=== PATIENT | male | born 1950 | race Caucasian/White ===

== ENCOUNTER 2022-02-11 10:25 | Day surgery (SDC) | payer MEDICARE ==
[2022-01-24 14:43] VITALS: BMI 29.9
[~2022-02-11 10:25] MED LIST: ALPRAZolam 0.25 MG TAB PO PRN; ALPRAZolam 0.5 MG TAB PO PRN; ASPIRIN 325 MG TAB PO ONE; ATORVASTATIN 80 MG TAB PO ONE; HEPARIN SODIUM,PORCINE 10,000 UNIT in SODIUM CHLORIDE 0.9% 1,000 ML IRRIGATION PRN; HEPARIN SODIUM,PORCINE 2,500 UNIT in SODIUM CHLORIDE 0.9% 250 ML IRRIGATION PRN; NITROGLYCERIN SL TABS 0.4 MG TAB SUBLINGUAL PRN
[2022-02-11] MEDS ORDERED: SODIUM CHLORIDE 0.9% 1,000 ML IV ONE ×2 (10:41→11:42)
[2022-02-11 10:52] LABS: Glucose,Whole Blood 129 mg/dL (70-110)
[2022-02-11] MEDS ORDERED: fentaNYL (PF) 50 MCG/ML 2 ML AMP ONE (11:57)
[2022-02-11] MEDS ORDERED: LIDOCAINE 1% INJ 10MG/ML (30 ML VIAL-PF) SQ ONE (11:58)
[2022-02-11] MEDS ORDERED: fentaNYL (PF) 50 MCG/ML 2 ML AMP IV ONE (12:00)
[2022-02-11] MEDS ORDERED: MIDAZOLAM 2 MG/2 ML VIAL IV ONE (12:00)
[2022-02-11] MEDS ORDERED: HEPARIN SODIUM 1,000 UN/ML (10ML VL) ONE ×2 (12:26→12:53)
[2022-02-11] MEDS: HEPARIN SODIUM 1,000 UN/ML (10ML VL) IV ONE ×4 (12:30→13:03)
[2022-02-11] MEDS: IOPAMIDOL-370 125ML BTL INJ ONE ×2 (12:32→12:39)
[2022-02-11] MEDS ORDERED: NITROGLYCERIN 1000MCG/10ML SYRINGE INTRACORON ONE (12:40)
--- NOTE | 2022-02-11 12:51 | CC ---
CARDIAC CATHETERIZATION REPORT REFERRING PHYSICIAN: Kyle Hall. INDICATIONS: Recurrent episodes of chest pain with abnormal stress test. PROCEDURE NOTE: After obtaining informed consent, left heart catheterization, coronary angiogram, selective injection of the bypass graft has been performed with the right femoral artery. The patient has known renal insufficiency and his creatinine is around 1.7. We have decided to proceed with cardiac catheterization because of recurrent episodes of chest pain for which he is taking sublingual nitroglycerin. The patient has known CAD and had redo surgery in 2013 that involves CONNER to LAD, venous graft to RCA, OM and diagonal. FINDINGS: 1. Hemodynamics: Left ventricular end-diastolic pressure is 14 mm. There is no significant gradient across the aortic valve. 2. Left ventriculogram: Left ventriculogram was not performed. 3. Angiographic data: a.Left main coronary artery: Left main coronary artery appears occluded as it bifurcates into LAD and circumflex coronary artery. There is subtotal occlusion of the circ proximally and we cannot visualize the LAD. b. Right coronary artery is chronically occluded. c. Selective injection of the bypass grafts. I. CONNER to LAD appears patent. II.Venous graft to the right coronary artery is patent. III.Venous graft to the diagonal seems to be occluded with venous graft to what appears like a high OM, it shows a focal 95% stenosis proximally and there is a 70% stenosis distally and the agdaagux vessel also has lesion. CONCLUSIONS: 1. [place] 3-vessel coronary artery disease with patent CONNER to LAD venous graft to the right, patent venous graft to the OM with a severe stenosis proximally. 2. Occluded venous graft to the diagonal. PLAN: We believe the patient's symptoms are related to the lesion in the venous graft to the circ and Dr. Melton, the on-call multi site leasing consultant evaluated the data and will proceed with angioplasty of the same. MMODL / IJN: [id number] /
[2022-02-11] MEDS ORDERED: IOPAMIDOL-370 100ML BTL INJ ONE (13:17)
[2022-02-11] MEDS ORDERED: ZOLPIDEM 5 MG TAB PO PRN (13:25)
[2022-02-11] MEDS ORDERED: RX INFO: IV CONTRAST WAS GIVEN 1 EACH MISC MISCELLANE PRN (13:25)
[2022-02-11] MEDS ORDERED: MAG HYDROX/AL HYDROX/SIMETH 30 ML CUP PO PRN (13:25)
[2022-02-11] MEDS ORDERED: NITROGLYCERIN SL TABS 0.4 MG TAB SUBLINGUAL PRN (13:25)
[2022-02-11] MEDS ORDERED: ATROPINE SULFATE 0.1 MG/ML 10ML SYRINGE IV PRN (13:25)
[2022-02-11] MEDS ORDERED: SODIUM CHLORIDE 0.9% 1,000 ML in EMPTY BAG 1 BAG IV SCH (13:30)
--- NOTE | 2022-02-11 13:34 | P.CARDCATH ---
Date of Procedure: 02/11/22 Description of Procedure: PERCUTANEOUS TRANSLUMINAL CORONARY ANGIOPLASTY CLINICAL INFORMATION: The patient is a 71-year-old male with known history of hypertension, hyperlipidemia, diabetes mellitus, status post redo CABG who presented with symptoms of recurrent angina pectoris, underwent cardiac catheter ization by Dr. Everett and was found to have critical stenosis involving the SVG to the OM in 3 different segments. Recommendations were made regarding angioplasty and stenting. The procedure as well as the risks and the complications were discussed with the patient who was in full understanding and agreement. PROCEDURE: A 6 Divehi LCB guiding catheter was introduced into the system. After cannulating the the ostium of the graft, a 0.014 balanced medium J-wire was advanced across the lesion and positioned distally. Following that a 2.25 x 12 mm Treck balloon was advanced and inflated at 8 atmosphere. Following that a 2.25 x 18 mm Xience jake point stent was deployed in the crow OM. It was dilated at 14 vanesa. Following that a 3.25 x 18 mm Xience jake point was deployed in the distal segment of the SVG and dilated at 16 vanesa and after removing the balloon 3.25 x 18 mm Xience jake point was deployed in the proximal SVG and dilated at 16 vanesa. After removing the balloon 3.5 X 12 mm NC Euphora balloon was advanced into inflation at maximum of 12 vanesa where done. After the last inflation, after appropriate wait, the balloon and the guidewire were withdrawn back into the guiding catheter. Images were obtained and repeated. Those images reveal stable successful stenting. At that point, the guiding catheter, the balloon, and guidewire were removed. The sheath was removed. Hemostasis was obtained with the deployment of an Angio-Seal. There were no immediate complications. The patient was returned to the room in stable condition. Of note, the patient received 15,000 units of heparin as well as Plavix. His ACT was followed. There was no immediate complications. He had mild chest discomfort that resolved at the end of the procedure with no significant EKG changes. RESULTS: Successful stenting of the proximal OM1 with reduction of stenosis from 99 % to 0% Successful stenting of the distal segment of the SVG to the OM with reduction of stenosis from 80% to 0 %. Successful stenting of the proximal segment of the SVG to the OM with reduction of stenosis from 85% to 0%. RECOMMENDATIONS: The patient will continue on aspirin and clopidogrel for 6 months without any interruption in addition to aggressive coronary risks modifications. The findings and recommendations were discussed with the patient and the family, they are in full understanding and agreement. Duration of sedation: 48 minutes
[2022-02-11 13:35] LABS: Glucose,Whole Blood 94 mg/dL (70-110)
[2022-02-11] MEDS ORDERED: ISOSORBIDE MONONITRATE ER 30 MG TAB.ER.24H PO STA (14:09)
[2022-02-11] MEDS ORDERED: ACETAMINOPHEN TAB 500 MG TAB PO ONE (14:25)
[2022-02-11] MEDS: SODIUM CHLORIDE 0.9% 1,000 ML in EMPTY BAG 1 BAG IV SCH ×2 (16:32→21:06)
[2022-02-11 20:37] LABS: Glucose,Whole Blood 174 mg/dL (70-110)
[2022-02-11] MEDS ORDERED: ATORVASTATIN 40 MG TAB PO SCH (21:00)
[2022-02-11] MEDS: ISOSORBIDE MONONITRATE ER 30 MG TAB.ER.24H PO SCH (21:51)
[2022-02-12] MEDS: PIOGLITAZONE 15 MG TAB PO SCH ×2 (01:43→08:47)
[2022-02-12] MEDS: SODIUM CHLORIDE 0.9% 1,000 ML in EMPTY BAG 1 BAG IV SCH (05:55)
[2022-02-12 05:57] LABS: Glucose,Whole Blood 127 mg/dL (70-110)
[2022-02-12 06:42] LABS: African American GFR (CKD) 61 (>60 ml/min/1.73 sqM); Anion Gap 8 mmol/L; Blood Urea Nitrogen 19 mg/dL (9-20); Calcium 8.3 mg/dL (8.4-10.2); Carbon Dioxide 22 mmol/L (22-30); Chloride 108 mmol/L (98-107); Glucose 103 mg/dL (74-99); Non-African American GFR(CKD) 52 (>60 ml/min/1.73 sqM); Sodium 138 mmol/L (137-145)
[2022-02-12] MEDS ORDERED: PANTOPRAZOLE 40 MG TABLET PO SCH (07:30)
--- NOTE | 2022-02-12 08:30 | DS ---
DISCHARGE SUMMARY FINAL DIAGNOSIS: Unstable angina. PROCEDURES PERFORMED: Left heart catheterization and angioplasty of the venous graft to the OM branch. HISTORY OF PRESENT ILLNESS: This is a 71-year-old gentleman with history of coronary artery disease, status post redo CABG, who presented to us with recurrent episodes of chest pain and had a stress test that was abnormal. He has renal insufficiency, but as patient was having persistent chest discomfort in spite of optimal medical therapy, he was advised to undergo cardiac catheterization that revealed severe 3-vessel coronary artery disease with patent CONNER to LAD, venous graft to RCA and venous graft to OM with occluded venous graft to diagonal, venous graft to OM had critical stenosis. He underwent angioplasty with stent placement of the same. He had a fairly uneventful stay in the hospital and is being discharged home today. CONDITION AT THE TIME OF DISCHARGE: He is free of symptoms. PHYSICAL EXAMINATION: VITAL SIGNS: Stable. NECK: There is no jugular venous distention. CHEST: Reveals good air entry bilaterally. HEART: Reveals first and second heart sounds. No gallop. ABDOMEN: Soft. EXTREMITIES: Did not reveal any edema. Peripheral pulses are intact. GROIN: Free of bleeding, bruits, hematoma. EKG shows sinus rhythm with nonspecific ST-T wave changes. LABS: This morning showed that the creatinine is 1.3, potassium is 4, BUN is 19. DISCHARGE MEDICATIONS: 1. Lopid. 2. Aspirin. 3. Xanax. 4. Glucophage, which is going to be held for 48 hours. 5. Prilosec. 6. Imdur 30 mg. 7. Plavix 75 mg daily. 8. Tenormin 50 mg daily. 9. Crestor 20 mg daily. 10.Actos. 11.Advair. FOLLOWUP: The patient will be followed up in my office in 2 weeks' time. MMODL / IJN: [id number] /
[2022-02-12] MEDS: ISOSORBIDE MONONITRATE ER 30 MG TAB.ER.24H PO SCH (08:47)
[2022-02-12 09:00] VITALS: BP 143/71; PULSE 62; RESP 18; TEMP 97.7
[2022-02-12] MEDS ORDERED: atenoloL 50 MG TAB PO SCH (09:00)
[2022-02-12] MEDS ORDERED: PIOGLITAZONE 15 MG TAB PO SCH (09:00)
[2022-02-12] MEDS ORDERED: CLOPIDOGREL 75 MG TAB PO SCH (09:00)
[2022-02-12] MEDS ORDERED: ASPIRIN 81 MG PO SCH (09:00)
== END 2022-02-12 11:15 | disposition home or self-care (01) ==
LOC: CATHCVL 10:25 → 6NMEDSUR 13:19 → CATHCVL 02-12 11:15
PROVIDERS: ATTEND Internal Medicine Cardiovascular Disease
DX: R94.30 Abnormal result of cardiovascular function study, unspecified (principal); I25.10 Atherosclerotic heart disease of native coronary artery without angina pectoris; I10 Essential (primary) hypertension; E78.5 Hyperlipidemia, unspecified; E11.9 Type 2 diabetes mellitus without complications
CPT/HCPCS: 93459; 80048; C9604; C1769 ×3; C1760; C1887; C1725 ×2; C1894; C1874 ×2; J2250; J2001; J3010; J1644; Q9967 ×2

== ENCOUNTER 2022-04-09 19:44 | Inpatient (IN) | payer MEDICARE ==
[2022-04-09] MEDS ORDERED: NITROGLYCERIN SL TABS 0.4 MG TAB SUBLINGUAL PRN (20:32)
--- NOTE | 2022-04-09 20:32 | ED ---
General Adult HPI - General Chief complaint: GI Bleed Stated complaint: GABRIEL, GI Bleed Time Seen by Provider: 04/09/22 20:11 Source: patient, EMS, RN notes reviewed, old records reviewed Mode of arrival: EMS Limitations: no limitations - History of Present Illness Initial comments: This is a 72-year-old male who was first seen at [facility] for shortness of breath and an episode of some chest discomfort. Patient states the shortness of breath getting worse lately he has been noticing more edema in his legs. Patient had a couple stents placed in February is had bypass surgery twice in the past. Patient was at the hospital and they determined his hemoglobin was 6.9. Patient had 1 unit of blood transfused on the way over from [facility]. Patient currently is not having any complaints while he is resting in bed. Patient denies any chest pain currently. - Related Data Home Medications Medication Instructions Recorded Confirmed Aspirin 81 mg PO DAILY 09/20/13 02/11/22 Isosorbide Mononitrate ER [Imdur] 30 mg PO TID 09/20/13 02/11/22 atenoloL [Tenormin] 50 mg PO DAILY 09/20/13 02/11/22 Nitroglycerin Sl Tabs [Nitrostat] 0.4 mg SUBLINGUAL Q5M PRN 09/22/13 02/11/22 ALPRAZolam [Xanax] 0.25 mg PO DAILY PRN 11/26/21 02/11/22 Clopidogrel [Plavix] 75 mg PO DAILY 11/26/21 02/11/22 Fluticasone Propion/Salmeterol 1 inhalation PO BID PRN 11/26/21 02/06/22 [Advair 100-50 Diskus] Pioglitazone [Actos] 15 mg PO DAILY 11/26/21 02/11/22 Rosuvastatin [Crestor] 20 mg PO HS 11/26/21 02/11/22 gemfibroziL [Lopid] 600 mg PO AC-BID 11/26/21 02/11/22 Omeprazole [PriLOSEC] 20 mg PO DAILY 01/21/22 02/11/22 Previous Rx's Medication Instructions Recorded metFORMIN HCL [Glucophage] 1,000 mg PO AC-BID #60 tab 10/02/13 Allergies Allergy/AdvReac Type Severity Reaction Status Date / Time No Known Allergies Allergy Verified 04/09/22 19:54 Review of Systems ROS Statement: Those systems with pertinent positive or pertinent negative responses have been documented in the HPI. ROS Other: All systems not noted in ROS Statement are negative. Past Medical History Past Medical History: Coronary Artery Disease (CAD), Chest Pain / Angina, COPD, Diabetes Mellitus, Eye Disorder, GI Bleed, Hearing Disorder / Deafness, Myocardial Infarction (ID), Osteoarthritis (OA) Additional Past Medical History / Comment(s): See Dr Everett's H&P. Recent Flu, resolved now. More frequent angina. PREVIOUS DETACHED RETINA. "Poor kidney function 11/30, better now." Hard of hearing. Last Myocardial Infarction Date:: 2013 History of Any Multi-Drug Resistant Organisms: None Reported Past Surgical History: Appendectomy, Coronary Bypass/CABG, Heart Catheterization With Stent Additional Past Surgical History / Comment(s): TRIPLE CABG X2 (1994 AND 2013). Past Anesthesia/Blood Transfusion Reactions: No Reported Reaction Date of Last Stent Placement:: unknown Past Psychological History: No Psychological Hx Reported Smoking Status: Former smoker Past Alcohol Use History: Rare Past Drug Use History: None Reported - Past Family History Brother(s) Family Medical History: Cancer General Exam - General Exam Comments Initial Comments: GENERAL: Patient is well-developed and well-nourished. Patient is nontoxic and well- hydrated and is in no acute distress. ENT: Neck is soft and supple. No significant lymphadenopathy is noted. Oropharynx is clear. Moist mucous membranes. Neck has full range of motion without eliciting any pain. EYES: The sclera were anicteric and conjunctiva were pink and moist. Extraocular movements were intact and pupils were equal round and reactive to light. Eyelids were unremarkable. PULMONARY: Unlabored respirations. Good breath sounds bilaterally. No audible rales rhonchi or wheezing was noted. CARDIOVASCULAR: There is a regular rate and rhythm without any murmurs gallops or rubs. ABDOMEN: Soft and nontender with normal bowel sounds. SKIN: Skin is clear with no lesions or rashes and otherwise unremarkable. NEUROLOGIC: Patient is alert and oriented x3. Cranial nerves II through XII are grossly intact. Motor and sensory are also intact. Normal speech, volume and content. Symmetrical smile. MUSCULOSKELETAL: Normal extremities with adequate strength and full range of motion. Scant edema LYMPHATICS: No significant lymphadenopathy is noted PSYCHIATRIC: Normal psychiatric evaluation. Limitations: no limitations Course Vital Signs 04/09/22 19:47 Temperature 98.0 F Pulse Rate 77 Respiratory 20 Rate Blood Pressure 160/77 O2 Sat by Pulse 99 Oximetry Medical Decision Making - Medical Decision Making Was pt. sent in by a medical professional or institution (MELANIE Guzmán, DESIGN AND SALES CONSULTANT, urgent care, hospital, or [facility]...) When possible be specific @ -Patient was sent to us from [facility] Did you speak to anyone other than the patient for history (EMS, parent, family, police, friend...)? What history was obtained from this source @ -[facility] emergency room physician gave me most of the history prior to the patient's arrival Did you review nursing and triage notes (agree or disagree)? Why? @ -I reviewed and agree with nursing and triage notes Were old charts reviewed (outside hosp., previous admission, EMS record, old EKG, old radiological studies, urgent care reports/EKG's, [facility] records)? Report findings @ -I reviewed all prior lab work from [facility] as well as [place] history and physical. Differential Diagnosis (chest pain, altered mental status, abdominal pain women, abdominal pain men, vaginal bleeding, weakness, fever, dyspnea, syncope, headache, dizziness, GI bleed, back pain, seizure, CVA, palpatations, mental health, musculoskeletal)? @ -Differential Dyspnea: Coronary syndrome, arrhythmia, tamponade, asthma, COPD, pulmonary embolism, pneumonia, pneumothorax, pulmonary effusion, anaphylaxis, diabetic ketoacidosis, flailed chest, pulmonary contusion, diaphragmatic rupture, anemia, neuromuscular, this is not meant to be an all-inclusive list. EKG interpreted by me (3pts min.). @ -As above X-rays interpreted by me (1pt min.). @ -None done CT interpreted by me (1pt min.). @ -None done U/S interpreted by me (1pt. min.). @ -None done What testing was considered but not performed or refused? (CT, X-rays, U/S, labs)? Why? @ -None What meds were considered but not given or refused? Why? @ -None Did you discuss the management of the patient with other professionals (professionals i.e. , MELANIE, DESIGN AND SALES CONSULTANT, lab, RT, psych nurse, social media community manager, supply planner, teacher, senior escrow officer, case repairer)? Give summary @ -I spoke to the [facility] hospitalist about the results were received from [facility] and they agreed to admit the patient admitted the patient wrote admitting orders Was smoking cessation discussed for >3mins.? @ -No Was critical care preformed (if so, how long)? @ -No Were there social determinants of health that impacted care today? How? (Homelessness, low income, unemployed, alcoholism, drug addiction, transportation, low edu. Level, literacy, decrease access to med. care, long term, rehab)? @ -No Was there de-escalation of care discussed even if they declined (Discuss DNR or withdrawal of care, Hospice)? DNR status @ -No What co-morbidities impacted this encounter? (DM, HTN, Smoking, COPD, CAD, Cancer, CVA, ARF, Chemo, Hep., AIDS, mental health diagnosis, sleep apnea, morbid obesity)? @ -None Was patient admitted / discharged? Hospital course, mention meds given and route, prescriptions, significant lab abnormalities, going to OR and other pertinent info. @ -Patient was transferred to us from [facility] the hemoglobin is 6.9 he was currently getting 1 unit of packed red blood cells hemoglobin will be repeated throughout the night as was troponin because the patient agrees episode of chest pain. Cardiology was consulted and so we'll GI. Undiagnosed new problem with uncertain prognosis? @ -No Drug Therapy requiring intensive monitoring for toxicity (Heparin, Nitro, Insulin, Cardizem)? @ -No Were any procedures done? @ -No Diagnosis/symptom? @ -Anemia Acute, or Chronic, or Acute on Chronic? @ -Acute Uncomplicated (without systemic symptoms) or Complicated (systemic symptoms)? @ -Complicated Side effects of treatment? @ -No Exacerbation, Progression, or Severe Exacerbation? @ -No Poses a threat to life or bodily function? How? (Chest pain, [place], ID, pneumonia, PE, COPD, DKA, ARF, appy, cholecystitis, CVA, Diverticulitis, Homicidal, Suicidal, threat to staff... and all critical care pts) @ -Yes this could lead to his hypoxia and her end organ dysfunction Diagnosis/symptom? @ -Chest pain Acute, or Chronic, or Acute on Chronic? @ -Acute Uncomplicated (without systemic symptoms) or Complicated (systemic symptoms)? @ -Uncomplicated Side effects of treatment? @ -none Exacerbation, Progression, or Severe Exacerbation] @ -no Poses a threat to life or bodily function? @ -no Disposition Clinical Impression: Anemia, Dyspnea, Chest pain Disposition: ADMITTED IP TO THIS HOSP Referrals: Ed Ferro MD [Primary Care Provider] - 1-2 days Time of Disposition: 20:32
[2022-04-09 21:57] LABS: Anisocytosis Slight; Basophils % (A) 0 %; Eosinophils # (A) 0.1 k/uL (0-0.7); Eosinophils % (A) 2 %; HCT 25.5 % (39.0-53.0); HGB 7.7 gm/dL (13.0-17.5); Hypochromasia Marked; Lymphocytes # (A) 1.1 k/uL (1.0-4.8); Lymphocytes % (A) 22 %; MCHC 30.1 g/dL (31.0-37.0); MCV 79.4 fL (80.0-100.0); Mean Platelet Volume 8.2; Microcytosis Slight; Monocytes # (A) 0.4 k/uL (0-1.0); Monocytes % (A) 8 %; Neutrophils # (A) 3.3 k/uL (1.3-7.7); Neutrophils % (A) 65 %; Platelet Count 250 k/uL (150-450); Poikilocytosis Marked; RDW 16.4 % (11.5-15.5); WBC 5.1 k/uL (3.8-10.6)
[2022-04-10 04:22] LABS: Anisocytosis Slight; Basophils % (A) 1 %; Eosinophils # (A) 0.1 k/uL (0-0.7); Eosinophils % (A) 2 %; HCT 24.2 % (39.0-53.0); HGB 7.5 gm/dL (13.0-17.5); Hypochromasia Marked; Lymphocytes # (A) 0.9 k/uL (1.0-4.8); Lymphocytes % (A) 21 %; MCH 24.5 pg (25.0-35.0); MCHC 30.8 g/dL (31.0-37.0); MCV 79.7 fL (80.0-100.0); Mean Platelet Volume 7.9; Monocytes # (A) 0.4 k/uL (0-1.0); Monocytes % (A) 8 %; Neutrophils # (A) 2.8 k/uL (1.3-7.7); Neutrophils % (A) 65 %; Platelet Count 243 k/uL (150-450); Poikilocytosis Marked; RBC 3.04 m/uL (4.30-5.90); RDW 16.3 % (11.5-15.5); WBC 4.4 k/uL (3.8-10.6)
[2022-04-10 08:20] LABS: Glucose,Whole Blood 90 mg/dL (70-110)
[2022-04-10] MEDS ORDERED: ASPIRIN 325 MG TAB PO SCH (09:00)
[2022-04-10 09:19] LABS: Calcium 7.4 mg/dL (8.4-10.2); Potassium 4.2 mmol/L (3.5-5.1)
[2022-04-10 12:09] LABS: Chol/HDL Ratio 5.77 Ratio; LDL Cholesterol,Calculated 99.5 mg/dL (0.0-131.0)
[2022-04-10] MEDS: ISOSORBIDE MONONITRATE ER 30 MG TAB.ER.24H PO SCH ×2 (12:38→17:50)
[2022-04-10] MEDS: atenoloL 50 MG TAB PO SCH ×2 (12:38→20:52)
--- NOTE | 2022-04-10 14:00 | P.HPIM ---
History of Present Illness H&P Date: 04/10/22 Chief Complaint: Exertional dyspnea Patient is a 72-year-old male with a known history of coronary artery disease status post CABG and recent stent placement in February 2022 initially presented to ER with complaints of shortness of breath and exertional dyspnea. Patient initially thought it was due to his heart condition and went to ER. Patient was found to have a hemoglobin of 6.9 and received 1 unit of PRBC. Patient was tested positive for FOBT. Patient is also taking aspirin and Plavix from recent stent placement. Patient also states that he has been taking Motrin for the last couple of weeks for his neuropathy pain in his feet. Denies any complaints of hematemesis dark-colored stools. Patient was transferred to [facility] for GI evaluation. On admission WBC 4.4 hemoglobin 7.5 MCV 79.7 and platelets 243 Sodium 143 potassium 4.2 chloride 101 bicarb is 19 BUN 25 and creatinine 1.72 Calcium 7.4 Review of Systems Constitutional: Patient denies any fever or chills . no Generalized weakness. Abdomen: Patient denied any nausea or vomiting or abd. pain Cardiovascular: Patient denies any chest pain. No palpitations. Exertional dyspnea. Shortness of breath. Respiratory: patient denied any cough . no sputum production. Patient did have shortness of breath Neurologic: Patient denied any numbness or tingling headache. Musculoskeletal: Patient denies any complaints of joint swelling or deformity. Skin: Negative Psychiatric: Negative Endocrine: No heat or cold intolerance. No recent weight gain. Genitourinary: No dysuria or hematuria. All other 14 point ROS negative except the above Past Medical History Past Medical History: Coronary Artery Disease (CAD), Chest Pain / Angina, COPD, Diabetes Mellitus, Eye Disorder, GI Bleed, Hearing Disorder / Deafness, Myocardi al Infarction ([place]), Osteoarthritis (OA) Additional Past Medical History / Comment(s): See Dr Everett's H&P. Recent Flu, resolved now. More frequent angina. PREVIOUS DETACHED RETINA. "Poor kidney function 11/30, better now." Hard of hearing. Last Myocardial Infarction Date:: 2013 History of Any Multi-Drug Resistant Organisms: None Reported Past Surgical History: Appendectomy, Coronary Bypass/CABG, Heart Catheterization With Stent Additional Past Surgical History / Comment(s): TRIPLE CABG X2 (1994 AND 2013). Past Anesthesia/Blood Transfusion Reactions: No Reported Reaction Date of Last Stent Placement:: unknown Past Psychological History: No Psychological Hx Reported Smoking Status: Former smoker Past Alcohol Use History: Rare Past Drug Use History: None Reported - Past Family History Brother(s) Family Medical History: Cancer Medications and Allergies Home Medications Medication Instructions Recorded Confirmed Type Isosorbide Mononitrate ER [Imdur] 30 mg PO BID-W/MEALS 09/20/13 04/09/22 History atenoloL [Tenormin] 50 mg PO HS 09/20/13 04/09/22 History Nitroglycerin Sl Tabs [Nitrostat] 0.4 mg SL Q5M PRN 09/22/13 04/09/22 History ALPRAZolam [Xanax] 0.25 mg PO HS 11/26/21 04/09/22 History Clopidogrel [Plavix] 75 mg PO DAILY 11/26/21 04/09/22 History Fluticasone Propion/Salmeterol 1 puff INHALATION RT-BID PRN 11/26/21 04/09/22 History [Advair 100-50 Diskus] Rosuvastatin [Crestor] 20 mg PO DAILY 11/26/21 04/09/22 History Omeprazole [PriLOSEC] 20 mg PO DAILY 01/21/22 04/09/22 History Aspirin EC [Ecotrin Low Dose] 81 mg PO DAILY 04/09/22 04/09/22 History Empagliflozin [Jardiance] 25 mg PO DAILY 04/09/22 04/09/22 History glipiZIDE [Glucotrol] 5 mg PO BID-W/MEALS 04/09/22 04/09/22 History metFORMIN HCL [Glucophage] 1,000 mg PO BID-W/MEALS 04/09/22 04/09/22 History Allergies Allergy/AdvReac Type Severity Reaction Status Date / Time No Known Allergies Allergy Verified 04/09/22 21:41 Physical Exam Vitals: Vital Signs Temp Pulse Resp BP Pulse Ox 04/10/22 12:37 77 19 147/73 96 04/10/22 08:20 78 19 148/78 96 04/10/22 04:00 76 16 157/74 95 04/10/22 03:00 74 16 148/80 96 04/10/22 02:00 70 16 145/93 96 04/10/22 00:03 80 18 148/75 95 04/09/22 23:07 81 17 155/70 95 04/09/22 21:45 82 22 151/75 96 04/09/22 19:47 98.0 F 77 20 160/77 99 Intake and Output 04/09/22 04/10/22 04/10/22 22:59 06:59 14:59 Other: Weight 82.1 kg PHYSICAL EXAMINATION: Patient is lying in the bed comfortably, no acute distress, awake alert and oriented.. HEENT: Normocephalic. Neck is supple. Pupils reactive. Nostrils clear. Oral cavity is moist. Neck reveals no JVD, carotid bruits, or thyromegaly. CHEST EXAMINATION: Trachea is central. Symmetrical expansion. Lung escalante clear to auscultation and percussion. CARDIAC: Normal S1, S2 with no gallops. No murmurs ABDOMEN: Soft. Bowel sounds present. Nontender. No organomegaly. No abdominal bruits. Extremities: reveal no edema. No clubbing or cyanosis Neurologically awake, alert, oriented x3 with well-coordinated movements. No focal deficits noted Skin: No rash or skin lesions. Psychiatric: Coperative. Nonsuicidal, Musculoskeletal: No joint swelling or deformity. Normal range of motion. Results CBC & Chem 7: 04/10/22 03:45 04/10/22 08:50 Labs: Abnormal Lab Results - Last 24 Hours (Table) 04/09/22 04/10/22 04/10/22 Range/Units 21:10 03:45 03:45 RBC 3.20 L 3.04 L (4.30-5.90) m/uL Hgb 7.7 L 7.5 L (13.0-17.5) gm/dL Hct 25.5 L 24.2 L (39.0-53.0) % MCV 79.4 L 79.7 L (80.0-100.0) fL MCH 24.0 L 24.5 L (25.0-35.0) pg MCHC 30.1 L 30.8 L (31.0-37.0) g/dL RDW 16.4 H 16.3 H (11.5-15.5) % Lymphocytes # 0.9 L (1.0-4.8) k/uL Chloride (98-107) mmol/L Carbon Dioxide (22-30) mmol/L BUN (9-20) mg/dL Creatinine (0.66-1.25) mg/dL Calcium (8.4-10.2) mg/dL HDL Cholesterol 26.70 L (40.00-60.00) mg/dL 04/10/22 Range/Units 08:50 RBC (4.30-5.90) m/uL Hgb (13.0-17.5) gm/dL Hct (39.0-53.0) % MCV (80.0-100.0) fL MCH (25.0-35.0) pg MCHC (31.0-37.0) g/dL RDW (11.5-15.5) % Lymphocytes # (1.0-4.8) k/uL Chloride 111 H (98-107) mmol/L Carbon Dioxide 19 L (22-30) mmol/L BUN 25 H (9-20) mg/dL Creatinine 1.72 H (0.66-1.25) mg/dL Calcium 7.4 L (8.4-10.2) mg/dL HDL Cholesterol (40.00-60.00) mg/dL Thrombosis Risk Factor Assmnt - DVT/VTE Prophylaxis DVT/VTE Prophylaxis: Mechanical Prophylaxis ordered Assessment and Plan Assessment: Acute blood loss anemia likely secondary to GI bleed. Hemoglobin 6.9. Status post 1 unit of PRBC. Patient has been on aspirin Plavix and also taking Motrin for neuropathic pain recently. Shortness of breath and exertional dyspnea secondary to above Microcytic anemia without iron deficiency. Coronary artery disease with history of stent placement in February 2022 Coronary artery disease history of CABG GI and DVT prophylaxis with SCDs Plan: Patient will be continued on Protonix IV push daily. Monitor H&H closely. Transfusion of hemoglobin less than 7. Aspirin and Plavix is on hold due to acute GI bleed and cardiology and gastroenterology was consulted. Iron profile, B12 and folate levels ordered. Continue to follow closely. Prog nosis is guarded at this time. Time with Patient: Greater than 30
--- NOTE | 2022-04-10 15:18 | P.CRDCN ---
History of Present Illness Consult date: 04/10/22 Consult reason: chest pain (Dyspnea) History of present illness: History of present illness: This is a 72-year-old male patient of Dr. Beto Everett with past medical history of coronary artery disease status post CABG and stent placements, diabetes, dyslipidemia. We have been asked to evaluate the patient for chest pain and shortness of breath. Patient states he was at his PCP office and due to lower extremity edema and shortness of breath he was instructed to go to [facility]. At [facility], patient was found to have a hemoglobin of 6.9. Other lab work done at [place]: BNP 997. Stool for occult blood positive. Troponin 0.034. BUN 33, creatinine 2.3. The CBC 6.8, platelet count 264. Chest x-ray small basilar effusion, hiatal hernia. Patient was transferred to [facility] for further evaluation for GI bleed and is scheduled for upper and lower scopes with Dr. Luther Everett. Patient denies having any chest pain. Shortness of breath and fatigue are continued. He states he is feeling somewhat better. Patient is evaluated in the emergency center. EKG sinus rhythm with nonspecific changes Hemoglobin 7.5, BUN 25 creatinine 1.72, potassium 4.2. Repeat troponin 0.026 and 0.030. Triglycerides 139, cholesterol 154, HDL 26, LDL 99. Cardiac catheterization 02/11/[address] Melton revealed successful stenting of the proximal OM1, distal segment of the SVG to the OM and proximal segment of the SVG to OM. Echocardiogram 2019 EF 45%, mild to moderate MR, [id number] AR Home cardiac medications: Aspirin 81 mg daily, atenolol 50 mg at bedtime, Plavix 75 mg daily, Jardiance 25 mg daily, Imdur 30 mg twice daily, Nitrostat as needed, Crestor 20 mg daily Review Of Systems: At the time of my evaluation: Constitutional: No fever, no chills. No weakness, reports fatigue. EENT: No headache. No dizziness. Lungs: Reports shortness of breath, cough, no sputum production. No wheezing. Cardiovascular: Denies chest pain, no lower extremity edema. No palpitations. No paroxysmal nocturnal dyspnea. No orthopnea. No lightheadedness or dizziness. No syncopal episodes. Abdominal: No abdominal pain. No nausea, vomiting. No diarrhea. No constipation. No bloody or tarry stools. Genitourinary: No dysuria.. No urinary retention. Musculoskeletal: No myalgias. No muscle weakness, no frequent falls. No back pain. No neck pain. Integumentary: No wounds. No rash. No unusual bruising. Neurologic: No aphasia. No facial droop. No change in mentation. No head injury. No headache. Psychiatric: No depression. No anxiety. Endocrine: No abnormal blood sugars. Physical examination: Gen: This is a 72 year old male. He is resting on the ear stretcher and appears to be comfortable and in no acute distress. VS: reviewed HEENT: Head is atraumatic, normocephalic. Pupils equal, round. Sclerae is anicteric. NECK: Supple. No JVD. No lymphadenopathy. No thyromegaly. LUNGS: Clear to auscultation. No wheezes or rhonchi. No intercostal retractions. HEART: Regular rate and rhythm. No murmur. ABDOMEN: Soft. Bowel sounds are present. No masses. No tenderness. EXTREMITIES: Trace pedal edema. No calf tenderness. NEUROLOGICAL: Patient is awake, alert and oriented x3. Cranial nerves 2 through 12 are grossly intact. Assessment: Dyspnea most likely secondary to anemia Suspected acute blood loss anemia and acute GI bleed Coronary artery disease with previous CABG as well as stent placements in February Diabetes Dyslipidemia Plan: Patient is scheduled for EGD and colonoscopy Continue patient's home cardiac medications. Aspirin and Plavix on hold. Will resume Plavix as soon as GI clears Obtain 2-D echocardiogram and Doppler study to assess cardiac structure and function Further recommendations to follow based upon clinical course Thank you kindly for this consultation. Nurse practitioner note has been reviewed, I agree with documented findings and plan of care. Patient was seen and examined. Past Medical History Past Medical History: Coronary Artery Disease (CAD), Chest Pain / Angina, COPD, Diabetes Mellitus, Eye Disorder, GI Bleed, Hearing Disorder / Deafness, Myocardial Infarction (CT), Osteoarthritis (OA) Additional Past Medical History / Comment(s): See Dr Everett's H&P. Recent Flu, resolved now. More frequent angina. PREVIOUS DETACHED RETINA. "Poor kidney function 11/30, better now." Hard of hearing. Last Myocardial Infarction Date:: 2013 History of Any Multi-Drug Resistant Organisms: None Reported Past Surgical History: Appendectomy, Coronary Bypass/CABG, Heart Catheterization With Stent Additional Past Surgical History / Comment(s): TRIPLE CABG X2 (1994 AND 2013). Past Anesthesia/Blood Transfusion Reactions: No Reported Reaction Date of Last Stent Placement:: unknown Past Psychological History: No Psychological Hx Reported Smoking Status: Former smoker Past Alcohol Use History: Rare Past Drug Use History: None Reported - Past Family History Brother(s) Family Medical History: Cancer Medications and Allergies Home Medications Medication Instructions Recorded Confirmed Type Isosorbide Mononitrate ER [Imdur] 30 mg PO BID-W/MEALS 09/20/13 04/09/22 History atenoloL [Tenormin] 50 mg PO HS 09/20/13 04/09/22 History Nitroglycerin Sl Tabs [Nitrostat] 0.4 mg SL Q5M PRN 09/22/13 04/09/22 History ALPRAZolam [Xanax] 0.25 mg PO HS 11/26/21 04/09/22 History Clopidogrel [Plavix] 75 mg PO DAILY 11/26/21 04/09/22 History Fluticasone Propion/Salmeterol 1 puff INHALATION RT-BID PRN 11/26/21 04/09/22 History [Advair 100-50 Diskus] Rosuvastatin [Crestor] 20 mg PO DAILY 11/26/21 04/09/22 History Omeprazole [PriLOSEC] 20 mg PO DAILY 01/21/22 04/09/22 History Aspirin EC [Ecotrin Low Dose] 81 mg PO DAILY 04/09/22 04/09/22 History Empagliflozin [Jardiance] 25 mg PO DAILY 04/09/22 04/09/22 History glipiZIDE [Glucotrol] 5 mg PO BID-W/MEALS 04/09/22 04/09/22 History metFORMIN HCL [Glucophage] 1,000 mg PO BID-W/MEALS 04/09/22 04/09/22 History Allergies Allergy/AdvReac Type Severity Reaction Status Date / Time No Known Allergies Allergy Verified 04/09/22 21:41 Physical Exam Vitals: Vital Signs Temp Pulse Resp BP Pulse Ox 04/10/22 08:20 78 19 148/78 96 04/10/22 04:00 76 16 157/74 95 04/10/22 03:00 74 16 148/80 96 04/10/22 02:00 70 16 145/93 96 04/10/22 00:03 80 18 148/75 95 04/09/22 23:07 81 17 155/70 95 04/09/22 21:45 82 22 151/75 96 04/09/22 19:47 98.0 F 77 20 160/77 99 Intake and Output 04/09/22 04/10/22 04/10/22 22:59 06:59 14:59 Other: Weight 82.1 kg Results 04/10/22 03:45 04/10/22 08:50 Cardiac Enzymes 04/09/22 04/10/22 Range/Units 21:08 03:45 Troponin I 0.026 0.030 (0.000-0.034) ng/mL CBC 04/09/22 04/10/22 Range/Units 21:10 03:45 WBC 5.1 4.4 (3.8-10.6) k/uL RBC 3.20 L 3.04 L (4.30-5.90) m/uL Hgb 7.7 L 7.5 L (13.0-17.5) gm/dL Hct 25.5 L 24.2 L (39.0-53.0) % Plt Count 250 243 (150-450) k/uL Comprehensive Metabolic Panel 04/10/22 Range/Units 08:50 Sodium 143 (137-145) mmol/L Potassium 4.2 (3.5-5.1) mmol/L Chloride 111 H (98-107) mmol/L Carbon Dioxide 19 L (22-30) mmol/L BUN 25 H (9-20) mg/dL Creatinine 1.72 H (0.66-1.25) mg/dL Glucose 89 (74-99) mg/dL Calcium 7.4 L (8.4-10.2) mg/dL Current Medications Generic Name Dose Route Start Last Admin Trade Name Freq PRN Reason Stop Dose Admin Aspirin 325 mg 04/10/22 09:00 04/10/22 08:17 Aspirin 325 Mg Tab PO 325 mg DAILY HAILEY Administration Nitroglycerin 0.4 mg 04/09/22 20:32 Nitroglycerin Sl Tabs 0.4 Mg Tab SUBLINGUAL Q5M PRN Chest Pain Intake and Output 04/09/22 04/10/22 04/10/22 22:59 06:59 14:59 Other: Weight 82.1 kg 04/10/22 03:45 04/10/22 08:50
[2022-04-10 16:01] LABS: % Iron Saturation 3.54 (15.00-50.00); Ferritin 8.9 ng/mL (22.0-322.0)
[2022-04-10 16:24] LABS: Glucose,Whole Blood 104 mg/dL (70-110)
--- NOTE | 2022-04-10 16:33 | P.CONS ---
History of Present Illness - Reason for Consult Consult date: 04/10/22 Upper GI bleed Requesting physician: Warner Mcgee - Chief Complaint Dyspnea on exertion, shortness of breath - History of Present Illness Pleasant 72-year-old male with a past medical history of coronary artery disease, COPD, diabetes mellitus, with a history of CABG and recent stents placed in February who is on aspirin and Plavix that presented to [facility] with complaints of shortness of breath and dyspnea on exertion. Patient initially thought maybe it was his heart however he denied any chest pains. On admission he was known to have a hemoglobin of 6.9. He denies any history of GI bleed, denies any previous EGD or colonoscopy. He does state that he has been taking Motrin for the last couple weeks for neuropathy pain in his feet. He denies any blood in his stool or black stool, no hematemesis. He was given 1 unit of blood prior to transfer here for further GI workup. He also was noted to have a positive stool occult blood. He states he has had previous transfusion but that was status post his CABG. Labs WBC 4.4 hemoglobin 7.5 hematocrit 24 platelet count 243,000 sodium 143 potassium 4.2 BUN 25 creatinine 1.7 to iron 18, TIBC 494 iron saturation 3.5, B12 554 folate 10.3 Review of Systems REVIEW OF SYSTEMS: CARDIOPULMONARY: No chest pain. Patient had shortness of breath, dyspnea on exertion. Gastrointestinal: No abdominal pain or epigastric pain. No nausea or vomiting. No hematemesis, coffee-ground emesis. No rectal bleeding, or melena. GENITOURINARY: No dysuria or hematuria. MUSCULOSKELETAL: Reports normal range of motion., Joint pain. SKIN: No rashes. No jaundice. ENDOCRINE: No chills, fevers. No excessive weight gain or loss. No polydipsia or polyuria. PSYCHIATRIC: Unremarkable. NEUROLOGY: No change in mental status. Denies dizziness, headache. ENT: Vision unremarkable. CONSTITUTIONAL: No recent weight loss. No fever, chills, night sweats. Past Medical History Past Medical History: Coronary Artery Disease (CAD), Chest Pain / Angina, COPD, Diabetes Mellitus, Eye Disorder, GI Bleed, Hearing Disorder / Deafness, Myocardial Infarction (PR), Osteoarthritis (OA) Additional Past Medical History / Comment(s): See Dr Everett's H&P. Recent Flu, resolved now. More frequent angina. PREVIOUS DETACHED RETINA. "Poor kidney function 11/30, better now." Hard of hearing. Last Myocardial Infarction Date:: 2013 History of Any Multi-Drug Resistant Organisms: None Reported Past Surgical History: Appendectomy, Coronary Bypass/CABG, Heart Catheterization With Stent Additional Past Surgical History / Comment(s): TRIPLE CABG X2 (1994 AND 2013). Past Anesthesia/Blood Transfusion Reactions: No Reported Reaction Date of Last Stent Placement:: unknown Past Psychological History: No Psychological Hx Reported Smoking Status: Former smoker Past Alcohol Use History: Rare Past Drug Use History: None Reported - Past Family History Brother(s) Family Medical History: Cancer Medications and Allergies Home Medications Medication Instructions Recorded Confirmed Type Isosorbide Mononitrate ER [Imdur] 30 mg PO BID-W/MEALS 09/20/13 04/09/22 History atenoloL [Tenormin] 50 mg PO HS 09/20/13 04/09/22 History Nitroglycerin Sl Tabs [Nitrostat] 0.4 mg SL Q5M PRN 09/22/13 04/09/22 History ALPRAZolam [Xanax] 0.25 mg PO HS 11/26/21 04/09/22 History Clopidogrel [Plavix] 75 mg PO DAILY 11/26/21 04/09/22 History Fluticasone Propion/Salmeterol 1 puff INHALATION RT-BID PRN 11/26/21 04/09/22 History [Advair 100-50 Diskus] Rosuvastatin [Crestor] 20 mg PO DAILY 11/26/21 04/09/22 History Omeprazole [PriLOSEC] 20 mg PO DAILY 01/21/22 04/09/22 History Aspirin EC [Ecotrin Low Dose] 81 mg PO DAILY 04/09/22 04/09/22 History Empagliflozin [Jardiance] 25 mg PO DAILY 04/09/22 04/09/22 History glipiZIDE [Glucotrol] 5 mg PO BID-W/MEALS 04/09/22 04/09/22 History metFORMIN HCL [Glucophage] 1,000 mg PO BID-W/MEALS 04/09/22 04/09/22 History Allergies Allergy/AdvReac Type Severity Reaction Status Date / Time No Known Allergies Allergy Verified 03/01/23 21:41 Physical Exam Vitals: Vital Signs Temp Pulse Resp BP Pulse Ox 04/10/22 08:20 78 19 148/78 96 04/10/22 04:00 76 16 157/74 95 04/10/22 03:00 74 16 148/80 96 04/10/22 02:00 70 16 145/93 96 04/10/22 00:03 80 18 148/75 95 04/09/22 23:07 81 17 155/70 95 04/09/22 21:45 82 22 151/75 96 04/09/22 19:47 98.0 F 77 20 160/77 99 Intake and Output 04/09/22 04/10/22 04/10/22 22:59 06:59 14:59 Other: Weight 82.1 kg General appearance: The patient is alert, oriented, appears in no acute distress. HET: Head is normocephalic and atraumatic. Conjunctiva pink. Sclera anicteric. Neck: Supple without lymphadenopathy. Trachea midline. Heart: S1 S2. Regular rate and rhythm. Lungs: Clear to auscultation. Abdomen: Soft, nontender, nondistended with bowel sounds. No guarding or rigidity. Skin: No rashes. No jaundice. Extremities: Normal skin color and turgor. No pedal edema. Neurological: No focal deficits. Alert and oriented x3. Results CBC & Chem 7: 04/10/22 03:45 04/10/22 08:50 Labs: Abnormal Lab Results - Last 24 Hours (Table) 04/09/22 04/10/22 04/10/22 Range/Units 21:10 03:45 08:50 RBC 3.20 L 3.04 L (4.30-5.90) m/uL Hgb 7.7 L 7.5 L (13.0-17.5) gm/dL Hct 25.5 L 24.2 L (39.0-53.0) % MCV 79.4 L 79.7 L (80.0-100.0) fL MCH 24.0 L 24.5 L (25.0-35.0) pg MCHC 30.1 L 30.8 L (31.0-37.0) g/dL RDW 16.4 H 16.3 H (11.5-15.5) % Lymphocytes # 0.9 L (1.0-4.8) k/uL Chloride 111 H (98-107) mmol/L Carbon Dioxide 19 L (22-30) mmol/L BUN 25 H (9-20) mg/dL Creatinine 1.72 H (0.66-1.25) mg/dL Calcium 7.4 L (8.4-10.2) mg/dL Assessment and Plan (1) Microcytic anemia Narrative/Plan: 72-year-old male with significant coronary artery disease status post CABG and recent cardiac stents on dual antiplatelet therapy with Plavix and aspirin was having increased shortness of breath and dyspnea on exertion and presented to an outside hospital was found to have a hemoglobin of 6.9. Patient was given 1 unit of blood transfusion with repeat hemoglobin of 7.5. No prior history of GI bleed, no history of peptic ulcer disease. He also was taking Motrin for the last 2 weeks duration for neuropathy. No previous history HET colonoscopy. Possible etiologies include peptic ulcer disease, gastritis, esophagitis, AVM or other possible etiologies. Will proceed with both upper and lower endoscopic evaluation as patient has no overt signs of GI bleed and no previous history of endoscopies. Current Visit: Yes Status: Acute Code(s): D50.9 - IRON DEFICIENCY ANEMIA, UNSPECIFIED SNOMED Code(s): 775839159 (2) Positive occult stool blood test Current Visit: Yes Status: Acute Code(s): R19.5 - OTHER FECAL ABNORMALITIES SNOMED Code(s): 30804570 (3) Dyspnea Current Visit: Yes Status: Acute Code(s): R06.00 - DYSPNEA, UNSPECIFIED SNOMED Code(s): 511949273 (4) Coronary artery disease Current Visit: Yes Status: Acute Code(s): I25.10 - ATHSCL HEART DISEASE OF [place] CORONARY ARTERY W/O ANG PCTRS SNOMED Code(s): 74958784 (5) Hx of CABG Current Visit: No Status: Acute Code(s): Z95.1 - PRESENCE OF AORTOCORONARY BYPASS GRAFT SNOMED Code(s): 509944590 Plan: 1. Continue symptomatic and supportive care 2. Daily CBC transfuse for hemoglobin less than 7 3. Protonix 40 mg daily 5. Avoid NSAIDs 6. Hold Plavix 7. Clear liquid diet nothing by mouth after midnight 8. Bowel prep this evening 9. Plan for EGD colonoscopy tomorrow Thank you for this consultation, we will continue to follow. Dr. Luther Everett I agree with the dictator's note, documented as a scribe by Eliza Smith.
[2022-04-10] MEDS ORDERED: PEG 3350 (236 GM/BTL) + LYTES 4,000 ML BOTTLE PO ONE (17:00)
[2022-04-10 20:14] LABS: Glucose,Whole Blood 150 mg/dL (70-110)
[2022-04-11 05:59] LABS: Glucose,Whole Blood 95 mg/dL (70-110)
[2022-04-11 08:51] LABS: Anisocytosis Slight; HCT 28.8 % (39.0-53.0); HGB 8.6 gm/dL (13.0-17.5); Hypochromasia Marked; MCH 24.2 pg (25.0-35.0); MCHC 29.8 g/dL (31.0-37.0); MCV 81.3 fL (80.0-100.0); Mean Platelet Volume 8.1; Platelet Count 328 k/uL (150-450); Poikilocytosis Marked; RBC 3.54 m/uL (4.30-5.90); RDW 16.5 % (11.5-15.5); WBC 7.7 k/uL (3.8-10.6)
[2022-04-11 09:02] LABS: Albumin 4.4 g/dL (3.5-5.0); Calcium 7.9 mg/dL (8.4-10.2); Potassium 4.3 mmol/L (3.5-5.1); Total Bilirubin 0.7 mg/dL (0.2-1.3); Total Protein 7.5 g/dL (6.3-8.2)
[2022-04-11] MEDS: PANTOPRAZOLE 40 MG/10 ML VIAL IVP SCH (10:00)
[2022-04-11] MEDS: ISOSORBIDE MONONITRATE ER 30 MG TAB.ER.24H PO SCH ×2 (10:01→16:04)
[2022-04-11] MEDS: SODIUM FERRIC GLUCONAT-SUCROSE 125 MG in SODIUM CHLORIDE 0.9% 100 ML IVPB SCH (10:01)
--- NOTE | 2022-04-11 11:04 | P.PN ---
Subjective Progress Note Date: 04/11/22 History of present illness: This is a 72-year-old male patient of Dr. Beto Everett with past medical history of coronary artery disease status post CABG and stent placements, diabetes, dyslipidemia. We have been asked to evaluate the patient for chest pain and shortness of breath. Patient states he was at his PCP office and due to lower extremity edema and shortness of breath he was instructed to go to [facility]. At [facility], patient was found to have a hemoglobin of 6.9. Other lab work done at [place]: BNP 997. Stool for occult blood positive. Troponin 0.034. BUN 33, creatinine 2.3. The CBC 6.8, platelet count 264. Chest x-ray small basilar effusion, hiatal hernia. Patient was transferred to [facility] for further evaluation for GI bleed and is scheduled for upper and lower scopes with Dr. Luther Everett. Patient denies having any chest pain. Shortness of breath and fatigue are continued. He states he is feeling somewhat better. Patient is evaluated in the emergency center. EKG sinus rhythm with nonspecific changes Hemoglobin 7.5, BUN 25 creatinine 1.72, potassium 4.2. Repeat troponin 0.026 and 0.030. Triglycerides 139, cholesterol 154, HDL 26, LDL 99. Cardiac catheterization 02/11/[address] Melton revealed successful stenting of the proximal OM1, distal segment of the SVG to the OM and proximal segment of the SVG to OM. Echocardiogram 2019 EF 45%, mild to moderate MR, [id number] AR Home cardiac medications: Aspirin 81 mg daily, atenolol 50 mg at bedtime, Plavix 75 mg daily, Jardiance 25 mg daily, Imdur 30 mg twice daily, Nitrostat as needed, Crestor 20 mg daily 04/11 Patient is seen today on the cardiac stepdown unit. He states he is breathing much better today and feeling in general much better. No chest pain. Patient is scheduled for EGD and colonoscopy today with Dr. Luther Everett. Echocardiogram is pending. Physical examination: Gen: This is a 72 year old male. He is resting on the ear stretcher and appears to be comfortable and in no acute distress. VS: reviewed HEENT: Head is atraumatic, normocephalic. Pupils equal, round. Sclerae is anicteric. NECK: Supple. No JVD. No lymphadenopathy. No thyromegaly. LUNGS: Clear to auscultation. No wheezes or rhonchi. No intercostal retractions. HEART: Regular rate and rhythm. No murmur. ABDOMEN: Soft. Bowel sounds are present. No masses. No tenderness. EXTREMITIES: Trace pedal edema. No calf tenderness. NEUROLOGICAL: Patient is awake, alert and oriented x3. Cranial nerves 2 through 12 are grossly intact. Assessment: Dyspnea most likely secondary to anemia Suspected acute blood loss anemia and acute GI bleed Coronary artery disease with previous CABG as well as stent placements in February Diabetes Dyslipidemia Plan: Patient is scheduled for EGD and colonoscopy Continue patient's home cardiac medications. Aspirin and Plavix on hold. Will resume Plavix as soon as GI clears Obtain 2-D echocardiogram and Doppler study to assess cardiac structure and function-- pending Further recommendations to follow based upon clinical course Thank you kindly for this consultation. Nurse practitioner note has been reviewed, I agree with documented findings and plan of care. Patient was seen and examined. Objective - Vital Signs Vital signs: Vital Signs Temp 97.7 F 04/10/22 20:00 Pulse 72 04/11/22 04:00 Resp 22 04/11/22 04:00 BP 143/70 04/11/22 04:00 Pulse Ox 95 04/11/22 04:00 FiO2 Intake & Output 04/10/22 04/11/22 04/11/22 18:59 06:59 18:59 Intake Total 118 Balance 118 Weight 82.1 kg Intake: Oral 118 Other: # Voids 1 - Labs CBC & Chem 7: 04/11/22 08:18 04/11/22 08:18 Labs: Abnormal Lab Results - Last 24 Hours (Table) 04/10/22 04/10/22 04/10/22 Range/Units 03:45 08:50 20:10 Chloride 111 H (98-107) mmol/L Carbon Dioxide 19 L (22-30) mmol/L BUN 25 H (9-20) mg/dL Creatinine 1.72 H (0.66-1.25) mg/dL POC Glucose (mg/dL) 150 H (70-110) mg/dL Calcium 7.4 L (8.4-10.2) mg/dL Iron 18 L (65-175) ug/dL TIBC 494 H (228-460) ug/dL % Saturation 3.54 L (15.00-50.00) Ferritin 8.9 L (22.0-322.0) ng/mL HDL Cholesterol 26.70 L (40.00-60.00) mg/dL
[2022-04-11 11:56] LABS: Glucose,Whole Blood 102 mg/dL (70-110)
[2022-04-11] MEDS ORDERED: LIDOCAINE 2% INJ 20 MG/ML (2 ML VIAL) ONE (15:15)
[2022-04-11] MEDS ORDERED: PROPOFOL 10 MG/ML 20 ML VIAL IV ONE (15:15)
[2022-04-11] MEDS ORDERED: IV FLUID CONTINUATION 1,000 ML IV ONE ×2 (15:16)
--- NOTE | 2022-04-11 15:28 | P.PCN ---
Date of Procedure: 04/11/22 Procedure(s) Performed: BRIEF HISTORY: Patient is a 72-year-old, pleasant, white female scheduled for an upper endoscopy as part of evaluation of episodes of hematemesis 2 and approximately 2 days ago.. Patient underwent peripheral vascular stenting and has been on aspirin and Plavix. Soon after the procedure he had a couple of episodes of nausea vomiting followed by hematemesis. Hemoglobin PROCEDURE PERFORMED: Esophagogastroduodenoscopy. PREOPERATIVE DIAGNOSIS: Hematemesis 2 IV sedation per anesthesia. PROCEDURE: After informed consent was obtained, the patient was brought into the endoscopy unit. IV sedation was administered by Anesthesia under continuous monitoring. Initially the Olympus GIF-140 video endoscope was inserted into the mouth. Esophagus intubated without any difficulty. It was gradually advanced into the stomach and duodenum and carefully examined. The bulb and the second part of the duodenum appeared normal. The scope at this time was withdrawn to the stomach, adequately insufflated with air, and upon careful examination, mucosa of the antrum, body, cardia and the fundus appeared normal. No active upper GI bleed seen. No evidence of peptic ulcer disease. The scope was then withdrawn into the esophagus. The GE junction was located at 35 cm from the incisors. Moderate size hiatal hernia noted. The esophagus appeared normal. There were no erosions or ulcerations seen and the patient tolerated the procedure well. IMPRESSION: 1. Moderate size hiatal hernia but no evidence of esophagitis or peptic ulcer disease. 2. No evidence of acute upper GI bleed. RECOMMENDATIONS: The findings of this examination were discussed with the patient . He will continue with Protonix 40 mg daily. Continue with aspirin and Plavix. Advance to regular diet..
[2022-04-11] MEDS: ATORVASTATIN 40 MG TAB PO SCH (16:04)
[2022-04-11 16:18] LABS: Glucose,Whole Blood 87 mg/dL (70-110)
--- NOTE | 2022-04-11 16:19 | P.PCN ---
Date of Procedure: 04/11/22 Procedure(s) Performed: Brief history: Patient is a pleasant 72-year-old white male admitted hospital with symptomatic anemia with a hemoglobin of 7.5 g/dL. Iron indices consistent with iron deficiency anemia. He has scheduled for an upper endoscopy as well as colonoscopy as a part of evaluation of iron deficiency anemia. Procedure performed: Esophagogastroduodenoscopy Colonoscopy with biopsy and tattooing with Aiyana ink/snare polypectomy Preoperative diagnosis: Severe microcytic hypochromic anemia Anesthesia: MAC Procedure: After informed consent was obtained from the patient was brought into the endoscopy unit and IV sedation was administered by anesthesia under continuous monitoring. Initially upper endoscopy was done. The Olympus GF 160 video endoscope was inserted inserted into the mouth and esophagus intubated without any difficulty and was gradually advanced into the stomach and duodenum and carefully examined. The bulb and second part of the duodenum appeared normal. The scope was then withdrawn into the stomach adequately insufflated with air and upon careful examination the antrum and body, cardia and fundus appeared normal. The scope was then withdrawn into the esophagus. The GE junction was located at 40 cm to the incisors. It appeared regular with no erythema erosions or ulcerations. Rest of the esophagus appeared normal. Patient tolerated the procedure well. At this time the patient continued to remain sedation. Initial digital rectal examination was normal. Olympus CF 160 video colonoscope was then inserted into the rectum and gradually advanced to the cecum without any difficulty. Careful examination was performed as the scope was gradually being withdrawn. The prep was excellent. The cecum, ascending colon, transverse colon, descending colon, appeared normal. In the sigmoid colon at 28 cm from the anal was there was a near circumferential ulcerated mass identified but no stricture noted. Multiple biopsies were done from the ulcerated mass followed by tattooing with Aiyana ink at the distal margin of the mass. In the rectum there was a 5 mm polyp that was removed by snare polypectomy. Retroflexion was performed in the rectum and no lesions were noted. Patient tolerated the procedure well. Impression: 1. Upper endoscopy was within normal limits with no evidence of esophagitis or peptic ulcer disease 2. Colonoscopy revealed: a) Near circumferential sigmoid colon mass at 28 cm from the anal verge status post multiple biopsies followed by tattooing with Aiyana ink b) 5 mm rectal polyp status post polypectomy Recommendations: Findings of this examination were discussed with the patient. He will be scheduled for CT of abdomen and pelvis and will obtain surgical consultation. Findings of examination were discussed with Dr. Larson.
[2022-04-11] MEDS: IOPAMIDOL CONTRAST (ORAL USE) VIAL PO PRN ×2 (16:59→17:55)
--- NOTE | 2022-04-11 19:19 | CT ---
EXAMINATION TYPE: CT abdomen pelvis wo con DATE OF EXAM: 04/11/2022 COMPARISON: None HISTORY: sigmoid mass CT DLP: 794.5 mGycm Automated exposure control for dose reduction was used. Images obtained from the diaphragm to the floor the pelvis with oral contrast only. There is mild to moderate bilateral pleural effusions. There is large hiatal hernia and intrathoracic stomach. Heart is slightly enlarged. No pericardial effusion. There is atelectasis at both lung base s adjacent to the pleural fluid. Liver has fairly normal size and contour. There is a subtle area of hypodensity in the anterior right lobe of the liver that appears to be hemangioma based upon the appearance on the contrast CT scan of 02/13/2010. Spleen is intact. No pancreatic mass. The bile base are not dilated. Gallbladder appears n ormal. There is no adrenal mass. There is 2.5 cm mixed density mass lateral left kidney that contains mostly fat and consistent with angiomyolipoma. There is no hydronephrosis. Kidneys have normal size. No ret roperitoneal adenopathy. Ureters are not dilated. Abdominal aorta is atheromatous. Bladder distends s moothly. There is enlarged prostate that measures 6.2 cm. No inguinal hernia. No free fluid in the pe lvis. There is some circumferential wall thickening of the mid sigmoid colon. There is mild luminal narrowi ng to 1 cm. Appendix not clearly seen. No sign of thickened appendix. Small bowel pattern is normal. No evidence of a bowel obstruction. No ascites or free air. The lumbar vertebrae have normal alignment. Posterior elements are intact. No compression fracture. Bony pelvis is intact. The hip joints are intact. IMPRESSION: Moderate pleural effusions. Large hiatal hernia. Pleural fluid appears new compared to 02/13/2010. Annular thickening of the mid sigmoid colon wall that could relate to tumor. Left-sided renal mass with features consistent with angiomyolipoma. Atherosclerotic vascular disease. 5 cm poorly marginated area of subtle hypodensity in the anterior r ight lobe of the liver consistent with hemangioma and not changed in size compared to chest CT scan o f 02/13/2010.
[2022-04-11] MEDS: atenoloL 50 MG TAB PO SCH (19:58)
[2022-04-11 20:20] LABS: Glucose,Whole Blood 97 mg/dL (70-110)
[2022-04-12] MEDS: ISOSORBIDE MONONITRATE ER 30 MG TAB.ER.24H PO SCH ×2 (06:18→17:54)
--- NOTE | 2022-04-12 06:27 | P.PN ---
Subjective Progress Note Date: 04/12/22 Principal diagnosis: Coronary artery disease The patient is a 72-year-old gentleman with CAD and status post revascularization in terms off CABG and stenting as well as hypertension and dyslipidemia who was admitted to the hospital with shortness of breath and he was found to be anemic where he required blood transfusion. We consulted to see the patient for further evaluation of the shortness of breath which we felt related to the anemia. 04/12/2022 The patient was seen and evaluated this morning. He underwent yesterday an EGD and that came in to be unremarkable and, which revealed a colon mass and biopsy was taken. Also subsequently underwent a computed tomography scan of the abdomen and pelvis for further investigation. Clinically he remains stable. He stated that the shortness of breath has been stable. No blood work as of yet for today. Hemodynamically he is stable. We still holding antiplatelet at this point. Assessment Coronary artery disease Anemia, rule out gastrointestinal bleeding Recent diagnosis of colon mass Multiple comorbid conditions Plan Continue the current medical regimen Continue holding antiplatelet at this point Further investigation regarding the colon mass Follow-up with the patient Continue monitor the hemoglobin Objective - Vital Signs Vital signs: Vital Signs Temp 98.1 F 04/12/22 03:45 Pulse 77 04/12/22 03:45 Resp 18 04/12/22 03:45 BP 137/68 04/12/22 03:45 Pulse Ox 96 04/12/22 03:45 FiO2 Intake & Output 04/11/22 04/11/22 04/12/22 06:59 18:59 06:59 Intake Total 200 Balance 200 Intake: IV 200 Other: # Voids 1 1 2 # Bowel Movements 0 - Labs CBC & Chem 7: 04/11/22 08:18 04/11/22 08:18 Labs: Abnormal Lab Results - Last 24 Hours (Table) 04/11/22 04/11/22 Range/Units 08:18 08:18 RBC 3.54 L (4.30-5.90) m/uL Hgb 8.6 L (13.0-17.5) gm/dL Hct 28.8 L (39.0-53.0) % MCH 24.2 L (25.0-35.0) pg MCHC 29.8 L (31.0-37.0) g/dL RDW 16.5 H (11.5-15.5) % Carbon Dioxide 20 L (22-30) mmol/L Creatinine 1.64 H (0.66-1.25) mg/dL Glucose 131 H (74-99) mg/dL Calcium 7.9 L (8.4-10.2) mg/dL
[2022-04-12 06:36] LABS: Glucose,Whole Blood 110 mg/dL (70-110)
[2022-04-12] MEDS: SYMBICORT 80-4.5 MCG INHALER INHALATION PRN (08:10)
[2022-04-12] MEDS: SODIUM FERRIC GLUCONAT-SUCROSE 125 MG in SODIUM CHLORIDE 0.9% 100 ML IVPB SCH (08:43)
[2022-04-12] MEDS: ATORVASTATIN 40 MG TAB PO SCH (08:43)
[2022-04-12] MEDS: PANTOPRAZOLE 40 MG/10 ML VIAL IVP SCH (08:43)
--- NOTE | 2022-04-12 10:13 | P.GSCN ---
History of Present Illness Consult date: 04/12/22 Reason for Consult: Sigmoid colon mass History of present illness: This is a 72-year-old male who underwent recent EGD and colonoscopy. Patient's found have a near obstructing sigmoid colon mass. Past Medical History Past Medical History: Coronary Artery Disease (CAD), Chest Pain / Angina, COPD, Diabetes Mellitus, Eye Disorder, GI Bleed, Hearing Disorder / Deafness, Myocardial Infarction (AK), Osteoarthritis (OA) Additional Past Medical History / Comment(s): See Dr Everett's H&P. Recent Flu, resolved now. More frequent angina. PREVIOUS DETACHED RETINA. "Poor kidney function 11/30, better now." Hard of hearing. Last Myocardial Infarction Date:: 2013 History of Any Multi-Drug Resistant Organisms: None Reported Past Surgical History: Appendectomy, Coronary Bypass/CABG, Heart Catheterization With Stent Additional Past Surgical History / Comment(s): TRIPLE CABG X2 (1994 AND 2013). Past Anesthesia/Blood Transfusion Reactions: No Reported Reaction Date of Last Stent Placement:: unknown Past Psychological History: No Psychological Hx Reported Smoking Status: Former smoker Past Alcohol Use History: Rare Past Drug Use History: None Reported - Past Family History Brother(s) Family Medical History: Cancer Medications and Allergies Home Medications Medication Instructions Recorded Confirmed Type Isosorbide Mononitrate ER [Imdur] 30 mg PO BID-W/MEALS 09/20/13 04/09/22 History atenoloL [Tenormin] 50 mg PO HS 09/20/13 04/09/22 History Nitroglycerin Sl Tabs [Nitrostat] 0.4 mg SL Q5M PRN 09/22/13 04/09/22 History ALPRAZolam [Xanax] 0.25 mg PO HS 11/26/21 04/09/22 History Clopidogrel [Plavix] 75 mg PO DAILY 11/26/21 04/09/22 History Fluticasone Propion/Salmeterol 1 puff INHALATION RT-BID PRN 11/26/21 04/09/22 History [Advair 100-50 Diskus] Rosuvastatin [Crestor] 20 mg PO DAILY 11/26/21 04/09/22 History Omeprazole [PriLOSEC] 20 mg PO DAILY 01/21/22 04/09/22 History Aspirin EC [Ecotrin Low Dose] 81 mg PO DAILY 04/09/22 04/09/22 History Empagliflozin [Jardiance] 25 mg PO DAILY 04/09/22 04/09/22 History glipiZIDE [Glucotrol] 5 mg PO BID-W/MEALS 04/09/22 04/09/22 History metFORMIN HCL [Glucophage] 1,000 mg PO BID-W/MEALS 04/09/22 04/09/22 History Allergies Allergy/AdvReac Type Severity Reaction Status Date / Time No Known Allergies Allergy Verified 04/09/22 21:41 Surgical - Exam Vital Signs Temp Pulse Resp BP Pulse Ox 98.0 F 77 20 160/77 99 04/09/22 19:47 04/09/22 19:47 04/09/22 19:47 04/09/22 19:47 04/09/22 19:47 - General well developed, well nourished, no distress - Eyes PERRL - ENT normal pinna - Neck no masses - Respiratory normal expansion - Cardiovascular Rhythm: regular - Abdomen Abdomen: soft, non tender Results - Labs 04/11/22 08:18 04/11/22 08:18 - Imaging CT scan - abdomen: report reviewed (Sigmoid colon mass) Assessment and Plan Assessment: Sigmoid colon mass. The mass is circumferential and near obstructing. Patient be scheduled for sigmoid colectomy tomorrow.
--- NOTE | 2022-04-12 11:33 | CA ---
Transthoracic Echo Report Name: Christ Resendiz Age: 72 Gender: M : 1950 Exam Date: 04/11/2022 10:25 Exam Location: [place] [facility] Ht (in): 64 Wt (lb): 181 Ordering Physician: Inge Sahni Attending/Referring Phys: [id number], [employer] Jagruti Villagran RDCS Procedure CPT: Indications: LVF Cardiac Hx: Technical Quality: Fair Contrast 1: Total Dose (mL): Contrast 2: Total Dose (mL): MEASUREMENTS (Male / Female) Normal Values 2D ECHO LV Diastolic Diameter PLAX 4.9 cm 4.2 - 5.9 / 3.9 - 5.3 cm LV Systolic Diameter PLAX 3.6 cm IVS Diastolic Thickness 1.2 cm 0.6 - 1.0 / 0.6 - 0.9 cm LVPW Diastolic Thickness 1.1 cm 0.6 - 1.0 / 0.6 - 0.9 cm LV Relative Wall Thickness 0.5 RV Internal Dim ED PLAX 3.7 cm LA Volume 66.5 cm??? 18 - 58 / 22 - 52 cm??? M-MODE Aortic Root Diameter MM 2.6 cm LA Systolic Diameter MM 5.0 cm LA Ao Ratio MM 1.9 AV Cusp Separation MM 1.9 cm DOPPLER AV Peak Velocity 168.9 cm/s AV Peak Gradient 11.4 mmHg AV Mean Velocity 131.8 cm/s AV Mean Gradient 7.5 mmHg AV Velocity Time Integral 42.6 cm AI Peak Velocity 445.3 cm/s AI Peak Gradient 79.3 mmHg AI Pressure Half Time 325.9 ms LVOT Peak Velocity 117.1 cm/s LVOT Peak Gradient 5.5 mmHg LVOT Velocity Time Integral 27.5 cm MV Area PHT 3.8 cm??? Mitral E Point Velocity 121.8 cm/s Mitral A Point Velocity 78.7 cm/s Mitral E to A Ratio 1.5 MV Deceleration Time 200.5 ms MV E' Velocity 7.0 cm/s Mitral E to MV E' Ratio 17.3 TR Peak Velocity 402.4 cm/s TR Peak Gradient 64.8 mmHg Right Ventricular Systolic Press 68.0 mmHg FINDINGS Left Ventricle Mildly increased left ventricular wall thickness. Left ventricular cavity size normal. Abnormal (paradoxical) septal motion consistent with postoperative state. Hypokinetic basal inferior wall. Left ventricular ejection fraction is estimated at 50-55 %. Right Ventricle Mild right ventricular dilatation. Severe pulmonary hypertension. Right ventricular systolic pressure estimated at 68 mm hg. Right Atrium Mild right atrial dilatation. Left Atrium Mildly increased left atrial volume. Mildly increased left atrial area. Mitral Valve Mild thickening/calcification of the anterior mitral valve leaflet. Mild mitral annular calcification. Moderate mitral regurgitation. Aortic Valve Trileaflet aortic valve. Mild aortic regurgitation. No aortic stenosis. Aortic valve sclerosis. Tricuspid Valve [id number] tricuspid regurgitation. Pulmonic Valve Trace pulmonic regurgitation. Pericardium No pericardial effusion. Echo free space anterior to the right ventricle likely represents a fat pad. Aorta Normal size aortic root and proximal ascending aorta. CONCLUSIONS Normal biventricular systolic function Moderate mitral regurgitation Severe pulmonary hypertension Mildly dilated right ventricle Moderate to severe tricuspid regurgitation Previewed by: Dr. Ariel Lewis MD (Electronically Signed) Final Date: 12 April 2022 11:33
[2022-04-12 12:07] LABS: Glucose,Whole Blood 142 mg/dL (70-110)
[2022-04-12 16:30] LABS: Glucose,Whole Blood 118 mg/dL (70-110)
[2022-04-12] MEDS: atenoloL 50 MG TAB PO SCH (19:45)
[2022-04-12 20:32] LABS: Glucose,Whole Blood 138 mg/dL (70-110)
--- NOTE | 2022-04-13 00:11 | P.PN ---
Subjective Progress Note Date: 04/11/22 Patient is a 72-year-old male with a known history of coronary artery disease status post CABG and recent stent placement in February 2022 initially presented to ER with complaints of shortness of breath and exertional dyspnea. Patient initially thought it was due to his heart condition and went to ER. Patient was found to have a hemoglobin of 6.9 and received 1 unit of PRBC. Patient was tested positive for FOBT. Patient is also taking aspirin and Plavix from recent stent placement. Patient also states that he has been taking Motrin for the last couple of weeks for his neuropathy pain in his feet. Denies any complaints of hematemesis dark-colored stools. Patient was transferred to [facility] for GI evaluation. On admission WBC 4.4 hemoglobin 7.5 MCV 79.7 and platelets 243 Sodium 143 potassium 4.2 chloride 101 bicarb is 19 BUN 25 and creatinine 1.72 Calcium 7.4 04/11/2022 Patient is currently resting in bed. Awake alert and oriented x3. No complaints of chest pain or shortness of breath. Otherwise underwent EGD and colonoscopy today. EGD showed moderate size hiatal hernia but no evidence of esophagitis or peptic ulcer disease. No evidence of GI bleed. Colonoscopy showed a) Near circumferential sigmoid colon mass at 28 cm from the anal verge status post multiple biopsies followed by tattooing with Aiyana ink b) 5 mm rectal polyp status post polypectomy General surgery was consulted and follow-up biopsy report.. Hemoglobin is stable at 8.6 otherwise. Denies any complaints of nausea or vomiting. Patient was started on clear liquid diet and follow H&H. Current medications reviewed. Objective - Vital Signs Vital signs: Vital Signs Temp 98.2 F 04/11/22 09:59 Pulse 79 04/11/22 12:10 Resp 22 04/11/22 04:00 BP 132/67 04/11/22 12:10 Pulse Ox 95 04/11/22 12:10 FiO2 Intake & Output 04/10/22 04/11/22 04/11/22 18:59 06:59 18:59 Intake Total 118 Balance 118 Weight 82.1 kg Intake: Oral 118 Other: # Voids 1 1 # Bowel Movements 0 - Exam PHYSICAL EXAMINATION: Patient is lying in the bed comfortably, no acute distress, awake alert and oriented.. HEENT: Normocephalic. Neck is supple. Pupils reactive. Nostrils clear. Oral cavity is moist. Neck reveals no JVD, carotid bruits, or thyromegaly. CHEST EXAMINATION: Trachea is central. Symmetrical expansion. Lung escalante clear to auscultation and percussion. CARDIAC: Normal S1, S2 with no gallops. No murmurs ABDOMEN: Soft. Bowel sounds present. Nontender. No organomegaly. No abdominal bruits. Extremities: reveal no edema. No clubbing or cyanosis Neurologically awake, alert, oriented x3 with well-coordinated movements. No focal deficits noted Skin: No rash or skin lesions. Psychiatric: Coperative. Nonsuicidal, Musculoskeletal: No joint swelling or deformity. Normal range of motion. - Labs CBC & Chem 7: 04/11/22 08:18 04/11/22 08:18 Labs: Abnormal Lab Results - Last 24 Hours (Table) 04/10/22 04/10/22 04/11/22 Range/Units 08:50 20:10 08:18 RBC 3.54 L (4.30-5.90) m/uL Hgb 8.6 L (13.0-17.5) gm/dL Hct 28.8 L (39.0-53.0) % MCH 24.2 L (25.0-35.0) pg MCHC 29.8 L (31.0-37.0) g/dL RDW 16.5 H (11.5-15.5) % Carbon Dioxide (22-30) mmol/L Creatinine (0.66-1.25) mg/dL Glucose (74-99) mg/dL POC Glucose (mg/dL) 150 H (70-110) mg/dL Calcium (8.4-10.2) mg/dL Iron 18 L (65-175) ug/dL TIBC 494 H (228-460) ug/dL % Saturation 3.54 L (15.00-50.00) Ferritin 8.9 L (22.0-322.0) ng/mL 04/11/22 Range/Units 08:18 RBC (4.30-5.90) m/uL Hgb (13.0-17.5) gm/dL Hct (39.0-53.0) % MCH (25.0-35.0) pg MCHC (31.0-37.0) g/dL RDW (11.5-15.5) % Carbon Dioxide 20 L (22-30) mmol/L Creatinine 1.64 H (0.66-1.25) mg/dL Glucose 131 H (74-99) mg/dL POC Glucose (mg/dL) (70-110) mg/dL Calcium 7.9 L (8.4-10.2) mg/dL Iron (65-175) ug/dL TIBC (228-460) ug/dL % Saturation (15.00-50.00) Ferritin (22.0-322.0) ng/mL Assessment and Plan Assessment: sigmoid colon mass. colonoscopy showed Near circumferential sigmoid colon mass at 28 cm from the anal verge status post multiple biopsies followed by tattooing with Aiyana ink Acute blood loss anemia likely secondary to GI bleed. Hemoglobin 6.9. Status post 1 unit of PRBC. Patient has been on aspirin Plavix and also taking Motrin for neuropathic pain recently. Shortness of breath and exertional dyspnea secondary to above Microcytic anemia with iron deficiency. Coronary artery disease with history of stent placement in February 2022 Coronary artery disease history of CABG GI and DVT prophylaxis with SCDs Plan: Patient is status post colonoscopy showed sigmoid colon mass. General surgery was consulted. Follow-up biopsy report. Patient will be continued on Protonix IV push daily. Monitor H&H closely. Transfusion of hemoglobin less than 7. Aspirin and Plavix is on hold due to acute GI bleed. Iron profile, B12 and folate levels ordered.B12 and folate within normal limits. Started on iron supplementation. Continue to follow closely. Prognosis is guarded at this time. Time with Patient: Greater than 30
[2022-04-13] MEDS: ISOSORBIDE MONONITRATE ER 30 MG TAB.ER.24H PO SCH ×2 (06:27→16:52)
--- NOTE | 2022-04-13 06:34 | P.PN ---
Subjective Progress Note Date: 04/13/22 Principal diagnosis: Coronary artery disease The patient is a 72-year-old gentleman with CAD and status post revascularization in terms off CABG and stenting as well as hypertension and dyslipidemia who was admitted to the hospital with shortness of breath and he was found to be anemic where he required blood transfusion. We consulted to see the patient for further evaluation of the shortness of breath which we felt related to the anemia. 04/12/2022 The patient was seen and evaluated this morning. He underwent yesterday an EGD and that came in to be unremarkable and, which revealed a colon mass and biopsy was taken. Also subsequently underwent a computed tomography scan of the abdomen and pelvis for further investigation. Clinically he remains stable. He stated that the shortness of breath has been stable. No blood work as of yet for today. Hemodynamically he is stable. We still holding antiplatelet at this point. 2022 The patient was seen and evaluated this morning. He is stable from a cardiovascular standpoint of view in terms of chest pain or chest discomfort or shortness of breath. He is hemodynamically stable as well. The computed tomography scan revealed a colon mass and he is in process of having surgery later on today. He is maintaining normal sinus mechanism. Currently he is on beta taylor as well as he is on statin. Antiplatelet continues to be on hold because of the GI bleeding and also because of the surgery later on today. The echo revealed preserved biventricular systolic function was evidence of severe p ulmonary hypertension and moderate to severe tricuspid regurgitation. Assessment Coronary artery disease with prior revascularization Anemia related to gastrointestinal etiology Recent diagnosis of colon mass Pulmonary hypertension Plan Continue the current medical regimen Avoid aggressive blood pressure lowering in the light of severe pulmonary hypertension Follow-up with the patient Objective - Vital Signs Vital signs: Vital Signs Temp 98.3 F 04/13/22 04:00 Pulse 64 04/13/22 04:00 Resp 16 04/13/22 04:00 BP 126/83 04/13/22 04:00 Pulse Ox 97 04/13/22 04:00 FiO2 Intake & Output 04/12/22 04/12/22 04/13/22 06:59 18:59 06:59 Intake Total 240 1256 360 Balance 240 1256 360 Intake: Oral 240 1256 360 Other: # Voids 2 1 - Labs CBC & Chem 7: 04/11/22 08:18 04/11/22 08:18 Labs: Abnormal Lab Results - Last 24 Hours (Table) 04/12/22 04/12/22 04/12/22 Range/Units 11:45 16:28 20:30 POC Glucose (mg/dL) 142 H 118 H 138 H (70-110) mg/dL
[2022-04-13 06:42] LABS: Glucose,Whole Blood 104 mg/dL (70-110)
[2022-04-13] MEDS: SYMBICORT 80-4.5 MCG INHALER INHALATION PRN (08:11)
[2022-04-13 08:44] LABS: Anisocytosis Slight; HCT 26.1 % (39.0-53.0); HGB 7.7 gm/dL (13.0-17.5); Hypochromasia Marked; MCH 24.3 pg (25.0-35.0); MCHC 29.5 g/dL (31.0-37.0); MCV 82.3 fL (80.0-100.0); Mean Platelet Volume 8.7; Platelet Count 216 k/uL (150-450); Poikilocytosis Moderate; RBC 3.18 m/uL (4.30-5.90); WBC 5.3 k/uL (3.8-10.6)
[2022-04-13] MEDS: PANTOPRAZOLE 40 MG/10 ML VIAL IVP SCH (08:51)
[2022-04-13] MEDS: SODIUM FERRIC GLUCONAT-SUCROSE 125 MG in SODIUM CHLORIDE 0.9% 100 ML IVPB SCH (08:51)
[2022-04-13 09:07] LABS: Calcium 7.5 mg/dL (8.4-10.2); Potassium 3.8 mmol/L (3.5-5.1)
[2022-04-13 09:59] LABS: Eosinophils # (M) 0.05 k/uL (0-0.7); Monocytes # (M) 0.42 k/uL (0-1.0); Neutrophils # (M) 4.03 k/uL (1.3-7.7); Neutrophils % (M) 76 %; Nucleated Red Blood Cells 0 /100 WBC (0-0); Total Cells Counted 100
[2022-04-13] MEDS ORDERED: LACTATED RINGERS 1,000 ML IV ONE ×3 (10:20→12:10)
[2022-04-13 10:35] LABS: Glucose,Whole Blood 114 mg/dL (70-110)
[2022-04-13] MEDS ORDERED: MIDAZOLAM 2 MG/2 ML VIAL IVP ONE ×2 (10:42→10:49)
[2022-04-13] MEDS ORDERED: fentaNYL (PF) 50 MCG/1 ML VIAL IVP ONE (10:42)
[2022-04-13] MEDS ORDERED: PROPOFOL 10 MG/ML 20 ML VIAL IV ONE (11:07)
[2022-04-13] MEDS ORDERED: ROCURONIUM 10 MG/ML (5 ML VIAL) IV ONE (11:07)
[2022-04-13] MEDS ORDERED: SUGAMMADEX SODIUM 200 MG/2 ML SDV IV ONE (11:07)
[2022-04-13] MEDS ORDERED: fentaNYL (PF) 50 MCG/ML 2 ML AMP ONE (11:07)
[2022-04-13] MEDS ORDERED: LABETALOL 5 MG/ML VIAL MDV ONE (11:07)
[2022-04-13] MEDS ORDERED: SUCCINYLCHOLINE CHLORIDE 200 MG/10 ML VIAL IV ONE (11:07)
[2022-04-13] MEDS ORDERED: SODIUM CHLORIDE 0.9% (PF) 10 ML VIAL ONE ×2 (11:07)
[2022-04-13] MEDS ORDERED: ROPIVACAINE 5 MG/ML 30 ML VIAL ONE (11:07)
[2022-04-13] MEDS ORDERED: SODIUM CHLORIDE 0.9% 50 ML with ceFAZolin 2,000 MG IV ONE ×2 (11:20)
--- NOTE | 2022-04-13 11:21 | P.ANPRN ---
Procedure Note - Anesthesia - Invasive Line Right Arterial Line Time Out Performed: Yes (1039) Date of Procedure: 04/13/22 Time of Procedure: 10:40 Location of Patient: PreOp Preparation: Sterile Prep, Sterile Dressing Arterial Line Location: Radial (right) Ultrasound Used: No Purpose - Visualization and Identification of Vasculature: No Image Stored and Saved: No Narrative: Central line placement per sterile protocol utilized.
--- NOTE | 2022-04-13 11:22 | P.ANPRN ---
Procedure Note - Anesthesia - Nerve Block Performed Bilateral Rectus Abdominis Single Time Out Performed: Yes (1039) Date of Procedure: 04/13/22 Procedure Start Time: 10:48 Procedure Stop Time: 10:57 Location of Patient: PreOp Indication: Acute Post-Operative Pain, Requested by Surgeon Specifically requested for management of pain by DrCamryn: Pierre Carrera Sedation Type: Sedate with meaningful contact maintained Preparation: Sterile Prep Position: Supine Catheter: None Needle Types: Pajunk Needle Gauge: 21 Ultrasound used to visualize needle placement: Yes Ultrasound used to observe medication spread: Yes Injectate: 0.5% Ropivacaine (see comment for volume) (15cc + 10cc nacl pf each side) Blood Aspirated: No Pain Paresthesia on Injection Noted: No Resistance on Injection: Normal Image Stored and Saved: Yes Events: Uneventful and Well Tolerated
[2022-04-13] MEDS ORDERED: BENZOCAINE/MENTHOL LOZENG 1 EACH LOZENGE MUCOUS MEM PRN (12:47)
--- NOTE | 2022-04-13 12:47 | P.OP ---
Date of Procedure: 04/13/22 Preoperative Diagnosis: Sigmoid colon mass Postoperative Diagnosis: Sigmoid colon mass Procedure(s) Performed: Low anterior resection Anesthesia: ONEIDA Surgeon: Pierre aCrrera Estimated Blood Loss (ml): 25 Pathology: other (Sigmoid colon) Condition: stable Disposition: PACU Description of Procedure: LDESCRIPTION OF PROCEDURE: The patient was placed on the operating table in the supine position. Patient received a general anesthesia. Patient was then placed in the dorsal lithotomy position. The patients abdomen was prepped and draped in the usual sterile fashion. Through a low midline incision, the abdomen was entered. The Marlo wound protector was used. The Bookwalter retractor was placed in the wound. The stomach appeared normal. The small bowel appeared normal. The liver appeared normal. The right colon and transverse colon appeared normal. On the left colon, there was an extensive diverticulosis noted. The sigmoid colon was then mobilized by dividing the white line of Toldt with electrocautery. At this point, the proximal sigmoid colon was transected with a GI stapler after a window had been made in the mesentery. The distal sigmoid colon was then dissected. Mesentery was taken down with the Enseal d evice. The rectum was then transected with the contour stapler. Next, a enterotomy is made in the proximal colon. The anvil for the EEA stapler was placed into the colon. The colon was then transected with the MARLENI stapler. And then the anvil spike was driven through the staple line. Using the Enseal device the mesentery the bowel was divided and the specimen sent to pathology. The EEA stapler device was then placed in the patient'ss anus and passed into the rectum. The nail for the EEA was then brought out through the distal rectum and then attached to the anvil. The EEA stapler device was then fired. The anastomosis was inspected. There were 2 good donuts of tissue removed from the EEA stapler. The anastomosis was then tested under water and there was no air leak seen. At this point the abdomen was then irrigated. There was no bleeding seen. The patient had a pelvic appendix. His HIDA perform an incidental appendectomy. The mesentery of the appendix was divided with the Enseal device. And then using the GI stapler Was performed. The omentum was visualized. There appeared to be nonviable portion of omentum. This was decided with the Enseal device. This was sent to pathology. The fascia was closed clean instruments. The fascia was then closed with double stranded #1 PDS. The skin was closed with luis manuel. The patient tolerated the procedure well.
[2022-04-13 13:52] LABS: Glucose,Whole Blood 177 mg/dL (70-110)
[2022-04-13] MEDS: HYDROmorphone 1 MG/ML 1 ML SYRINGE IVP PRN ×3 (14:03→23:35)
[2022-04-13] MEDS: ATORVASTATIN 40 MG TAB PO SCH (14:24)
[2022-04-13 15:38] LABS: Anisocytosis Slight; Basophils % (A) 0 %; Eosinophils % (A) 0 %; HGB 8.3 gm/dL (13.0-17.5); Hypochromasia Marked; Lymphocytes # (A) 0.5 k/uL (1.0-4.8); Lymphocytes % (A) 5 %; MCH 23.7 pg (25.0-35.0); MCHC 28.5 g/dL (31.0-37.0); MCV 83.3 fL (80.0-100.0); Mean Platelet Volume 8.1; Monocytes # (A) 0.4 k/uL (0-1.0); Monocytes % (A) 4 %; Neutrophils # (A) 9.1 k/uL (1.3-7.7); Neutrophils % (A) 90 %; Platelet Count 239 k/uL (150-450); Poikilocytosis Moderate; RBC 3.48 m/uL (4.30-5.90); RDW 17.3 % (11.5-15.5); WBC 10.1 k/uL (3.8-10.6)
[2022-04-13 15:41] LABS: Calcium 7.5 mg/dL (8.4-10.2); Potassium 4.3 mmol/L (3.5-5.1)
[2022-04-13] MEDS: D5-0.45% NACL WITH KCL 20MEQ/L 1,000 ML IV SCH (16:10)
[2022-04-13 16:44] LABS: Glucose,Whole Blood 210 mg/dL (70-110)
[2022-04-13] MEDS: HEPARIN SODIUM,PORCINE/PF 5,000 UNIT/0.5 ML SYRINGE SQ SCH (16:52)
[2022-04-13 20:05] LABS: Glucose,Whole Blood 294 mg/dL (70-110)
[2022-04-13] MEDS: FAMOTIDINE 20 MG/2 ML VIAL IV SCH (20:32)
[2022-04-13] MEDS: atenoloL 50 MG TAB PO SCH (20:32)
--- NOTE | 2022-04-13 22:46 | P.PN ---
Subjective Progress Note Date: 04/12/22 Patient is a 72-year-old male with a known history of coronary artery disease status post CABG and recent stent placement in February 2022 initially presented to ER with complaints of shortness of breath and exertional dyspnea. Patient initially thought it was due to his heart condition and went to ER. Patient was found to have a hemoglobin of 6.9 and received 1 unit of PRBC. Patient was tested positive for FOBT. Patient is also taking aspirin and Plavix from recent stent placement. Patient also states that he has been taking Motrin for the last couple of weeks for his neuropathy pain in his feet. Denies any complaints of hematemesis dark-colored stools. Patient was transferred to [facility] for GI evaluation. On admission WBC 4.4 hemoglobin 7.5 MCV 79.7 and platelets 243 Sodium 143 potassium 4.2 chloride 101 bicarb is 19 BUN 25 and creatinine 1.72 Calcium 7.4 04/11/2022 Patient is currently resting in bed. Awake alert and oriented x3. No complaints of chest pain or shortness of breath. Otherwise underwent EGD and colonoscopy today. EGD showed moderate size hiatal hernia but no evidence of esophagitis or peptic ulcer disease. No evidence of GI bleed. Colonoscopy showed a) Near circumferential sigmoid colon mass at 28 cm from the anal verge status post multiple biopsies followed by tattooing with Aiyana ink b) 5 mm rectal polyp status post polypectomy General surgery was consulted and follow-up biopsy report.. Hemoglobin is stable at 8.6 otherwise. Denies any complaints of nausea or vomiting. Patient was started on clear liquid diet and follow H&H. 04/12/2022 Patient is currently resting in the bed. Awake alert and oriented x3. No complaints of chest pain or shortness of breath. No nausea vomiting abdominal pain or diarrhea. No cough or sputum production. Patient was seen by general surgery and is planning for or tomorrow. Antiplatelets on hold. Laboratory data reviewed. Patient is being current on iron supplementation Protonix IV push daily. Current medications reviewed. Objective - Vital Signs Vital signs: Vital Signs Temp 98.1 F 04/12/22 08:42 Pulse 65 04/12/22 15:36 Resp 16 04/12/22 11:22 BP 118/57 04/12/22 15:36 Pulse Ox 94 L 04/12/22 15:36 FiO2 Intake & Output 04/12/22 04/12/22 04/13/22 06:59 18:59 06:59 Intake Total 240 1256 Balance 240 1256 Intake: Oral 240 1256 Other: # Voids 2 - Exam PHYSICAL EXAMINATION: Patient is lying in the bed comfortably, no acute distress, awake alert and oriented.. HEENT: Normocephalic. Neck is supple. Pupils reactive. Nostrils clear. Oral cavity is moist. Neck reveals no JVD, carotid bruits, or thyromegaly. CHEST EXAMINATION: Trachea is central. Symmetrical expansion. Lung escalante clear to auscultation and percussion. CARDIAC: Normal S1, S2 with no gallops. No murmurs ABDOMEN: Soft. Bowel sounds present. Nontender. No organomegaly. No abdominal bruits. Extremities: reveal no edema. No clubbing or cyanosis Neurologically awake, alert, oriented x3 with well-coordinated movements. No focal deficits noted Skin: No rash or skin lesions. Psychiatric: Coperative. Nonsuicidal, Musculoskeletal: No joint swelling or deformity. Normal range of motion. - Labs CBC & Chem 7: 04/13/22 15:15 04/13/22 15:15 Labs: Abnormal Lab Results - Last 24 Hours (Table) 04/12/22 04/12/22 04/12/22 Range/Units 11:45 16:28 20:30 POC Glucose (mg/dL) 142 H 118 H 138 H (70-110) mg/dL Assessment and Plan Assessment: sigmoid colon mass. colonoscopy showed Near circumferential sigmoid colon mass at 28 cm from the anal verge status post multiple biopsies followed by tattooing with Aiyana ink Acute blood loss anemia likely secondary to GI bleed. Hemoglobin 6.9. Status post 1 unit of PRBC. Patient has been on aspirin Plavix and also taking Motrin for neuropathic pain recently. Shortness of breath and exertional dyspnea secondary to above Microcytic anemia with iron deficiency. Coronary artery disease with history of stent placement in February 2022 Coronary artery disease history of CABG GI and DVT prophylaxis with SCDs Plan: Patient is status post colonoscopy showed sigmoid colon mass. Follow-up biopsy report.General surgery is planning for or tomorrow. Continue with iron supplementation and Protonix IV push daily. Monitor H&H closely. Transfusion of hemoglobin less than 7. Aspirin and Plavix is on hold due to acute GI bleed. Iron profile, B12 and folate levels ordered.B12 and folate within normal limits. IV iron supplementation x 3 dose. Continue to follow closely. Prognosis is guarded at this time. Time with Patient: Greater than 30
--- NOTE | 2022-04-13 22:50 | P.PN ---
Subjective Progress Note Date: 04/13/22 Patient is a 72-year-old male with a known history of coronary artery disease status post CABG and recent stent placement in February 2022 initially presented to ER with complaints of shortness of breath and exertional dyspnea. Patient initially thought it was due to his heart condition and went to ER. Patient was found to have a hemoglobin of 6.9 and received 1 unit of PRBC. Patient was tested positive for FOBT. Patient is also taking aspirin and Plavix from recent stent placement. Patient also states that he has been taking Motrin for the last couple of weeks for his neuropathy pain in his feet. Denies any complaints of hematemesis dark-colored stools. Patient was transferred to [facility] for GI evaluation. On admission WBC 4.4 hemoglobin 7.5 MCV 79.7 and platelets 243 Sodium 143 potassium 4.2 chloride 101 bicarb is 19 BUN 25 and creatinine 1.72 Calcium 7.4 04/11/2022 Patient is currently resting in bed. Awake alert and oriented x3. No complaints of chest pain or shortness of breath. Otherwise underwent EGD and colonoscopy today. EGD showed moderate size hiatal hernia but no evidence of esophagitis or peptic ulcer disease. No evidence of GI bleed. Colonoscopy showed a) Near circumferential sigmoid colon mass at 28 cm from the anal verge status post multiple biopsies followed by tattooing with Aiyana ink b) 5 mm rectal polyp status post polypectomy General surgery was consulted and follow-up biopsy report.. Hemoglobin is stable at 8.6 otherwise. Denies any complaints of nausea or vomiting. Patient was started on clear liquid diet and follow H&H. 04/12/2022 Patient is currently resting in the bed. Awake alert and oriented x3. No complaints of chest pain or shortness of breath. No nausea vomiting abdominal pain or diarrhea. No cough or sputum production. Patient was seen by general surgery and is planning for or tomorrow. Antiplatelets on hold. Laboratory data reviewed. Patient is being current on iron supplementation Protonix IV push daily. 04/13/2022 Patient is currently lying in bed. Awake alert and oriented. Pain is fairly controlled. Status post low anterior resection of the sigmoid colon. Postoperative day 0 No fever no chills. Currently on room air. No nausea vomiting or diarrhea. Laboratory data showed WBC 5.3 hemoglobin 7.7 platelets 216 sodium 140 potassium 3.8 chloride 106 bicarb is 22 BUN 16 and creatinine 1.69. Calcium 7.5. General surgery and cardiology is on board. Current medications reviewed. Objective - Vital Signs Vital signs: Vital Signs Temp 98.5 F 04/13/22 19:00 Pulse 77 04/13/22 19:00 Resp 18 04/13/22 19:00 BP 136/77 04/13/22 19:00 Pulse Ox 96 04/13/22 20:00 FiO2 Intake & Output 04/13/22 04/13/22 04/14/22 06:59 18:59 06:59 Intake Total 360 2248 Output Total 550 Balance 360 1698 Intake: IV 1650 Oral 360 598 Output: Urine 450 Estimated Blood Loss 100 Other: Voiding Method Indwelling Catheter # Voids 1 2 - Exam PHYSICAL EXAMINATION: Patient is lying in the bed comfortably, no acute distress, awake alert and oriented.. HEENT: Normocephalic. Neck is supple. Pupils reactive. Nostrils clear. Oral cav ity is moist. Neck reveals no JVD, carotid bruits, or thyromegaly. CHEST EXAMINATION: Trachea is central. Symmetrical expansion. Lung escalante clear to auscultation and percussion. CARDIAC: Normal S1, S2 with no gallops. No murmurs ABDOMEN: Soft. Surgical site is intact. Bowel sounds diminished. Mild tenderness. No guarding or rigidity. No abdominal bruits. Extremities: reveal no edema. No clubbing or cyanosis Neurologically awake, alert, oriented x3 with well-coordinated movements. No f ocal deficits noted Skin: No rash or skin lesions. Psychiatric: Coperative. Nonsuicidal, Musculoskeletal: No joint swelling or deformity. Normal range of motion. - Labs CBC & Chem 7: 04/13/22 15:15 04/13/22 15:15 Labs: Abnormal Lab Results - Last 24 Hours (Table) 04/13/22 04/13/22 04/13/22 Range/Units 08:19 08:19 10:33 RBC 3.18 L (4.30-5.90) m/uL Hgb 7.7 L (13.0-17.5) gm/dL Hct 26.1 L (39.0-53.0) % MCH 24.3 L (25.0-35.0) pg MCHC 29.5 L (31.0-37.0) g/dL RDW 17.0 H (11.5-15.5) % Neutrophils # (1.3-7.7) k/uL Lymphocytes # (1.0-4.8) k/uL Lymphocytes # (Manual) 0.80 L (1.0-4.8) k/uL Carbon Dioxide (22-30) mmol/L Creatinine 1.69 H (0.66-1.25) mg/dL Glucose 107 H (74-99) mg/dL POC Glucose (mg/dL) 114 H (70-110) mg/dL Calcium 7.5 L (8.4-10.2) mg/dL 04/13/22 04/13/22 04/13/22 Range/Units 13:50 15:15 15:15 RBC 3.48 L (4.30-5.90) m/uL Hgb 8.3 L (13.0-17.5) gm/dL Hct 29.0 L (39.0-53.0) % MCH 23.7 L (25.0-35.0) pg MCHC 28.5 L (31.0-37.0) g/dL RDW 17.3 H (11.5-15.5) % Neutrophils # 9.1 H (1.3-7.7) k/uL Lymphocytes # 0.5 L (1.0-4.8) k/uL Lymphocytes # (Manual) (1.0-4.8) k/uL Carbon Dioxide 19 L (22-30) mmol/L Creatinine 1.53 H (0.66-1.25) mg/dL Glucose 190 H (74-99) mg/dL POC Glucose (mg/dL) 177 H (70-110) mg/dL Calcium 7.5 L (8.4-10.2) mg/dL 04/13/22 04/13/22 Range/Units 16:42 20:03 RBC (4.30-5.90) m/uL Hgb (13.0-17.5) gm/dL Hct (39.0-53.0) % MCH (25.0-35.0) pg MCHC (31.0-37.0) g/dL RDW (11.5-15.5) % Neutrophils # (1.3-7.7) k/uL Lymphocytes # (1.0-4.8) k/uL Lymphocytes # (Manual) (1.0-4.8) k/uL Carbon Dioxide (22-30) mmol/L Creatinine (0.66-1.25) mg/dL Glucose (74-99) mg/dL POC Glucose (mg/dL) 210 H 294 H (70-110) mg/dL Calcium (8.4-10.2) mg/dL Assessment and Plan Assessment: sigmoid colon mass. colonoscopy showed Near circumferential sigmoid colon mass at 28 cm from the anal verge status post multiple biopsies followed by tattooing with Aiyana ink/Status post low anterior resection. Postoperative day 0 Acute blood loss anemia likely secondary to GI bleed. Hemoglobin 6.9 on admission. Status post 1 unit of PRBC. Patient has been on aspirin Plavix and also taking Motrin for neuropathic pain recently.Status post EGD and colonoscopy. Shortness of breath and exertional dyspnea secondary to above Microcytic anemia with iron deficiency. Coronary artery disease with history of stent placement in February 2022 Coronary artery disease history of CABG GI and DVT prophylaxis with SCDs Plan: Patient is status post low anterior resection of the sigmoid colon. colonoscopy showed sigmoid colon mass. Follow-up biopsy report. Continue with iron supplementation and Protonix IV push daily. Monitor H&H closely. Transfusion of hemoglobin less than 7. Aspirin and Plavix is on hold due to acute GI bleed. Iron profile, B12 and folate levels ordered.B12 and folate within normal limits. IV iron supplementation x 3 dose. Continue to follow closely. Prognosis is guarded at this time. Time with Patient: Greater than 30
[2022-04-13] MEDS: KETOROLAC 15 MG/ML 1 ML VIAL IVP PRN (23:27)
[2022-04-13] MEDS: ONDANSETRON 4 MG/2 ML VIAL IVP PRN (23:27)
[2022-04-14] MEDS: HEPARIN SODIUM,PORCINE/PF 5,000 UNIT/0.5 ML SYRINGE SQ SCH ×4 (00:17→23:12)
[2022-04-14] MEDS: D5-0.45% NACL WITH KCL 20MEQ/L 1,000 ML IV SCH ×3 (01:36→13:05)
[2022-04-14] MEDS: HYDROmorphone 1 MG/ML 1 ML SYRINGE IVP PRN ×3 (03:14→19:40)
[2022-04-14 05:35] LABS: Glucose,Whole Blood 174 mg/dL (70-110)
[2022-04-14] MEDS: ISOSORBIDE MONONITRATE ER 30 MG TAB.ER.24H PO SCH (05:50)
[2022-04-14 06:29] LABS: Anisocytosis Slight; Basophils % (A) 0 %; Eosinophils % (A) 0 %; HCT 26.1 % (39.0-53.0); HGB 7.6 gm/dL (13.0-17.5); Hypochromasia Marked; Lymphocytes % (A) 7 %; MCH 23.8 pg (25.0-35.0); MCV 81.9 fL (80.0-100.0); Mean Platelet Volume 8.7; Monocytes # (A) 0.7 k/uL (0-1.0); Monocytes % (A) 5 %; Neutrophils # (A) 11.8 k/uL (1.3-7.7); Neutrophils % (A) 85 %; Platelet Count 260 k/uL (150-450); Poikilocytosis Moderate; RBC 3.19 m/uL (4.30-5.90); RDW 17.9 % (11.5-15.5); WBC 13.9 k/uL (3.8-10.6)
[2022-04-14 06:41] LABS: Calcium 7.3 mg/dL (8.4-10.2); Potassium 4.6 mmol/L (3.5-5.1)
[2022-04-14] MEDS: SYMBICORT 80-4.5 MCG INHALER INHALATION PRN (07:35)
[2022-04-14] MEDS: FAMOTIDINE 20 MG/2 ML VIAL IV SCH (08:59)
[2022-04-14] MEDS: PANTOPRAZOLE 40 MG/10 ML VIAL IVP SCH (09:00)
[2022-04-14] MEDS: ATORVASTATIN 40 MG TAB PO SCH (09:00)
[2022-04-14] MEDS: ALVIMOPAN 12 MG CAPSULE PO SCH ×2 (09:00→19:40)
[2022-04-14 11:41] LABS: Glucose,Whole Blood 250 mg/dL (70-110)
--- NOTE | 2022-04-14 13:30 | P.PN ---
Subjective Progress Note Date: 04/14/22 HISTORY OF PRESENT ILLNESS: This is a 72-year-old male patient of Dr. Beto Everett with past medical history of coronary artery disease status post CABG and stent placements, diabetes, d yslipidemia. We have been asked to evaluate the patient for chest pain and shortness of breath. Patient states he was at his PCP office and due to lower extremity edema and shortness of breath he was instructed to go to [facility]. At [facility], patient was found to have a hemoglobin of 6.9. Other lab work done at [facility]: BNP 997. Stool for occult blood positive. Troponin 0.034. BUN 33, creatinine 2.3. The CBC 6.8, platelet count 264. Chest x-ray small basilar effusion, hiatal hernia. Patient was transferred to [facility] for further evaluation for GI bleed and is scheduled for upper and lower scopes with Dr. Luther Everett. Patient denies having any chest pain. Shortness of breath and fatigue are continued. He states he is feeling somewhat better. Patient is evaluated in the emergency center. EKG sinus rhythm with nonspecific changes Hemoglobin 7.5, BUN 25 creatinine 1.72, potassium 4.2. Repeat troponin 0.026 and 0.030. Triglycerides 139, cholesterol 154, HDL 26, LDL 99. Cardiac catheterization 02/11/[address] Melton revealed successful stenting of the proximal OM1, distal segment of the SVG to the OM and proximal segment of t he SVG to OM. Echocardiogram 2019 EF 45%, mild to moderate MR, [id number] AR Home cardiac medications: Aspirin 81 mg daily, atenolol 50 mg at bedtime, Plavix 75 mg daily, Jardiance 25 mg daily, Imdur 30 mg twice daily, Nitrostat as needed, Crestor 20 mg daily 04/12/2022 The patient was seen and evaluated this morning. He underwent yesterday an EGD and that came in to be unremarkable and, which revealed a colon mass and biopsy was taken. Also subsequently underwent a computed tomography scan of the abdomen and pelvis for further investigation. Clinically he remains stable. He stated that the shortness of breath has been stable. No blood work as of yet for today. Hemodynamically he is stable. We still holding antiplatelet at this point. 2022 The patient was seen and evaluated this morning. He is stable from a cardiovascular standpoint of view in terms of chest pain or chest discomfort or shortness of breath. He is hemodynamically stable as well. The computed tomography scan revealed a colon mass and he is in process of having surgery later on today. He is maintaining normal sinus mechanism. Currently he is on beta taylor as well as he is on statin. Antiplatelet continues to be on hold because of the GI bleeding and also because of the surgery later on today. The echo revealed preserved biventricular systolic function was evidence of severe pulmonary hypertension and moderate to severe tricuspid regurgitation. 04/14/2022 Patient examined this morning at the bedside. Patient is status post low anterior resection. Postop day #1. Patient's aspirin and Plavix remain on hold. Patient denies chest pain or pressure. He denies shortness of breath. Vital signs are stable. Echocardiogram completed revealing ejection fraction 50-55%. PHYSICAL EXAM: VITAL SIGNS: Reviewed. GENERAL: Well-developed in no acute distress. NECK: Supple. No JVD or thyromegaly LUNGS: Respirations even and unlabored. Lungs essentially clear to auscultation bilaterally. HEART: Regular rate and rhythm. S1 and S2 heard. EXTREMITIES: Normal range of motion. No clubbing or cyanosis. Peripheral pulses intact. No lower extremity edema ASSESSMENT: Acute blood loss anemia Sigmoid colon mass, status post low anterior resection Acute kidney injury Coronary artery disease with previous CABG and recent stenting in February 2022 Hyperlipidemia Diabetes PLAN: Continue current cardiac medications Aspirin and Plavix remain on hold. Spoke with general surgery Lindy NAVARRO rega rding these are patient had stenting in February 2022. Resume when okay with general surgery Monitor kidney function. Repeat in AM. Patient to follow up post discharge with Dr. Everett Further recommendations pending patient course Nurse practitioner note has been reviewed by physician. Signing provider agrees with the documented findings, assessment, and plan of care. Objective - Vital Signs Vital signs: Vital Signs Temp 98 F 04/14/22 13:00 Pulse 76 04/14/22 13:00 Resp 18 04/14/22 13:00 BP 101/60 04/14/22 13:00 Pulse Ox 95 04/14/22 13:00 FiO2 21 04/14/22 07:38 Intake & Output 04/13/22 04/14/22 04/14/22 18:59 06:59 18:59 Intake Total 2248 Output Total 550 235 Balance 1698 -235 Weight 82.1 kg Intake: IV 1650 Oral 598 Output: Urine 450 235 Uretheral (Bo) 35 Estimated Blood Loss 100 Other: Voiding Method Indwelling Catheter Indwelling Catheter Indwelling Catheter # Voids 2 - Labs CBC & Chem 7: 04/14/22 05:36 04/14/22 05:36 Labs: Abnormal Lab Results - Last 24 Hours (Table) 04/13/22 04/13/22 04/13/22 Range/Units 13:50 15:15 15:15 WBC (3.8-10.6) k/uL RBC 3.48 L (4.30-5.90) m/uL Hgb 8.3 L (13.0-17.5) gm/dL Hct 29.0 L (39.0-53.0) % MCH 23.7 L (25.0-35.0) pg MCHC 28.5 L (31.0-37.0) g/dL RDW 17.3 H (11.5-15.5) % Neutrophils # 9.1 H (1.3-7.7) k/uL Lymphocytes # 0.5 L (1.0-4.8) k/uL Sodium (137-145) mmol/L Carbon Dioxide 19 L (22-30) mmol/L Creatinine 1.53 H (0.66-1.25) mg/dL Glucose 190 H (74-99) mg/dL POC Glucose (mg/dL) 177 H (70-110) mg/dL Calcium 7.5 L (8.4-10.2) mg/dL 04/13/22 04/13/22 04/14/22 Range/Units 16:42 20:03 05:31 WBC (3.8-10.6) k/uL RBC (4.30-5.90) m/uL Hgb (13.0-17.5) gm/dL Hct (39.0-53.0) % MCH (25.0-35.0) pg MCHC (31.0-37.0) g/dL RDW (11.5-15.5) % Neutrophils # (1.3-7.7) k/uL Lymphocytes # (1.0-4.8) k/uL Sodium (137-145) mmol/L Carbon Dioxide (22-30) mmol/L Creatinine (0.66-1.25) mg/dL Glucose (74-99) mg/dL POC Glucose (mg/dL) 210 H 294 H 174 H (70-110) mg/dL Calcium (8.4-10.2) mg/dL 04/14/22 04/14/22 04/14/22 Range/Units 05:36 05:36 11:39 WBC 13.9 H (3.8-10.6) k/uL RBC 3.19 L (4.30-5.90) m/uL Hgb 7.6 L (13.0-17.5) gm/dL Hct 26.1 L (39.0-53.0) % MCH 23.8 L (25.0-35.0) pg MCHC 29.0 L (31.0-37.0) g/dL RDW 17.9 H (11.5-15.5) % Neutrophils # 11.8 H (1.3-7.7) k/uL Lymphocytes # (1.0-4.8) k/uL Sodium 136 L (137-145) mmol/L Carbon Dioxide 18 L (22-30) mmol/L Creatinine 2.00 H (0.66-1.25) mg/dL Glucose 135 H (74-99) mg/dL POC Glucose (mg/dL) 250 H (70-110) mg/dL Calcium 7.3 L (8.4-10.2) mg/dL
--- NOTE | 2022-04-14 13:47 | P.PN ---
Subjective Progress Note Date: 04/14/22 CHIEF COMPLAINT: Colon mass HISTORY OF PRESENT ILLNESS: Patient is postop day #1 status post lower anterior resection for sigmoid colon mass. Pathology results pending. Patient reports his pain is controlled. He did have nausea last night but did improve with Zofran. Denies any bowel activity. Afebrile. WBC is up at 13.9 hemoglobin 8.3 down to 7.6 platelets 260 sodium 136 potassium 4.6 creatinine 2.0 PHYSICAL EXAM: VITAL SIGNS: Reviewed. GENERAL: Well-developed in no acute distress. HEENT: No sclera icterus. Extraocular movements grossly intact. Moist buccal mucosa. Head is atraumatic, normocephalic. ABDOMEN: Soft. Nondistended. Nontender. NEUROLOGIC: Alert and oriented. Cranial nerves II through XII grossly intact. ASSESSMENT: 1. 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 Anemia due to GI bleed from the colon mass 3. History of coronary disease with stents placed in February 2022 PLAN: -Continue clear liquid diet -Encouraged patient ambulate -Encouraged patient to use incentive spirometer -Continue to hold aspirin and Plavix -Continue IV fluids -Continue pain management -GI prophylaxis Pepcid and DVT prophylaxis subcu heparin Physician [employer] Consultant note has been reviewed by physician. Signing provider agrees with the documented findings, assessment, and plan of care. Objective - Vital Signs Vital signs: Vital Signs Temp 98.1 F 04/14/22 08:56 Pulse 84 04/14/22 08:56 Resp 18 04/14/22 08:56 BP 91/57 04/14/22 08:56 Pulse Ox 95 04/14/22 08:56 FiO2 21 04/14/22 07:38 Intake & Output 04/13/22 04/14/22 04/14/22 18:59 06:59 18:59 Intake Total 2248 Output Total 550 235 Balance 1698 -235 Weight 82.1 kg Intake: IV 1650 Oral 598 Output: Urine 450 235 Uretheral (Bo) 35 Estimated Blood Loss 100 Other: Voiding Method Indwelling Catheter Indwelling Catheter Indwelling Catheter # Voids 2 - Labs CBC & Chem 7: 04/14/22 05:36 04/14/22 05:36 Labs: Abnormal Lab Results - Last 24 Hours (Table) 04/13/22 04/13/22 04/13/22 Range/Units 13:50 15:15 15:15 WBC (3.8-10.6) k/uL RBC 3.48 L (4.30-5.90) m/uL Hgb 8.3 L (13.0-17.5) gm/dL Hct 29.0 L (39.0-53.0) % MCH 23.7 L (25.0-35.0) pg MCHC 28.5 L (31.0-37.0) g/dL RDW 17.3 H (11.5-15.5) % Neutrophils # 9.1 H (1.3-7.7) k/uL Lymphocytes # 0.5 L (1.0-4.8) k/uL Sodium (137-145) mmol/L Carbon Dioxide 19 L (22-30) mmol/L Creatinine 1.53 H (0.66-1.25) mg/dL Glucose 190 H (74-99) mg/dL POC Glucose (mg/dL) 177 H (70-110) mg/dL Calcium 7.5 L (8.4-10.2) mg/dL 04/13/22 04/13/22 04/14/22 Range/Units 16:42 20:03 05:31 WBC (3.8-10.6) k/uL RBC (4.30-5.90) m/uL Hgb (13.0-17.5) gm/dL Hct (39.0-53.0) % MCH (25.0-35.0) pg MCHC (31.0-37.0) g/dL RDW (11.5-15.5) % Neutrophils # (1.3-7.7) k/uL Lymphocytes # (1.0-4.8) k/uL Sodium (137-145) mmol/L Carbon Dioxide (22-30) mmol/L Creatinine (0.66-1.25) mg/dL Glucose (74-99) mg/dL POC Glucose (mg/dL) 210 H 294 H 174 H (70-110) mg/dL Calcium (8.4-10.2) mg/dL 04/14/22 04/14/22 04/14/22 Range/Units 05:36 05:36 11:39 WBC 13.9 H (3.8-10.6) k/uL RBC 3.19 L (4.30-5.90) m/uL Hgb 7.6 L (13.0-17.5) gm/dL Hct 26.1 L (39.0-53.0) % MCH 23.8 L (25.0-35.0) pg MCHC 29.0 L (31.0-37.0) g/dL RDW 17.9 H (11.5-15.5) % Neutrophils # 11.8 H (1.3-7.7) k/uL Lymphocytes # (1.0-4.8) k/uL Sodium 136 L (137-145) mmol/L Carbon Dioxide 18 L (22-30) mmol/L Creatinine 2.00 H (0.66-1.25) mg/dL Glucose 135 H (74-99) mg/dL POC Glucose (mg/dL) 250 H (70-110) mg/dL Calcium 7.3 L (8.4-10.2) mg/dL
[2022-04-14] MEDS: SODIUM CHLORIDE 0.9% 1,000 ML IV SCH (14:53)
[2022-04-14 16:57] LABS: Glucose,Whole Blood 231 mg/dL (70-110)
[2022-04-14] MEDS: ONDANSETRON 4 MG/2 ML VIAL IVP PRN (17:18)
[2022-04-14] MEDS: atenoloL 50 MG TAB PO SCH (19:40)
[2022-04-14 20:23] LABS: Glucose,Whole Blood 244 mg/dL (70-110)
[2022-04-14] MEDS: KETOROLAC 15 MG/ML 1 ML VIAL IVP PRN (23:45)
[2022-04-15] MEDS ORDERED: TAMSULOSIN 0.4 MG CAP.ER.24H PO STA (03:47)
[2022-04-15] MEDS: SODIUM CHLORIDE 0.9% 1,000 ML IV SCH ×4 (04:08→23:33)
[2022-04-15 06:38] LABS: Glucose,Whole Blood 275 mg/dL (70-110)
--- NOTE | 2022-04-15 07:36 | P.PN ---
Subjective Progress Note Date: 04/14/22 Patient is a 72-year-old male with a known history of coronary artery disease status post CABG and recent stent placement in February 2022 initially presented to ER with complaints of shortness of breath and exertional dyspnea. Patient initially thought it was due to his heart condition and went to ER. Patient was found to have a hemoglobin of 6.9 and received 1 unit of PRBC. Patient was tested positive for FOBT. Patient is also taking aspirin and Plavix from recent stent placement. Patient also states that he has been taking Motrin for the last couple of weeks for his neuropathy pain in his feet. Denies any complaints of hematemesis dark-colored stools. Patient was transferred to [facility] for GI evaluation. On admission WBC 4.4 hemoglobin 7.5 MCV 79.7 and platelets 243 Sodium 143 potassium 4.2 chloride 101 bicarb is 19 BUN 25 and creatinine 1.72 Calcium 7.4 04/11/2022 Patient is currently resting in bed. Awake alert and oriented x3. No complaints of chest pain or shortness of breath. Otherwise underwent EGD and colonoscopy today. EGD showed moderate size hiatal hernia but no evidence of esophagitis or peptic ulcer disease. No evidence of GI bleed. Colonoscopy showed a) Near circumferential sigmoid colon mass at 28 cm from the anal verge status post multiple biopsies followed by tattooing with Aiyana ink b) 5 mm rectal polyp status post polypectomy General surgery was consulted and follow-up biopsy report.. Hemoglobin is stable at 8.6 otherwise. Denies any complaints of nausea or vomiting. Patient was started on clear liquid diet and follow H&H. 04/12/2022 Patient is currently resting in the bed. Awake alert and oriented x3. No complaints of chest pain or shortness of breath. No nausea vomiting abdominal pain or diarrhea. No cough or sputum production. Patient was seen by general surgery and is planning for or tomorrow. Antiplatelets on hold. Laboratory data reviewed. Patient is being current on iron supplementation Protonix IV push daily. 04/13/2022 Patient is currently lying in bed. Awake alert and oriented. Pain is fairly controlled. Status post low anterior resection of the sigmoid colon. Postoperative day 0 No fever no chills. Currently on room air. No nausea vomiting or diarrhea. Laboratory data showed WBC 5.3 hemoglobin 7.7 platelets 216 sodium 140 potassium 3.8 chloride 106 bicarb is 22 BUN 16 and creatinine 1.69. Calcium 7.5. General surgery and cardiology is on board. 04/14/2022 Patient is evaluated today sitting up in chair currently postoperative day #1 low anterior resection for sigmoid colon mass with pathology currently pending at this time. Patient is currently on clear liquid diet. Not passing gas yet and no BM. Reports controlled incisional abdominal pain. Wound vac is in place and intact. Patient is currently on D5 0.45 normal saline with potassium. Creatinine is up to 2.0 today. Review of Systems Constitutional: Denied any fatigue denied any fever. Cardio vascular: denied any chest pain, palpitations Gastrointestinal: denied any nausea, vomiting, diarrhea, not passing gas no BM. Pulmonary: Denied any shortness of breath cough Neurologic denied any new focal deficits All inpatient medications were reviewed and appropriate changes in these medications as dictated in the interval history and assessment and plan. PHYSICAL EXAMINATION: Patient is lying in the bed comfortably, no acute distress, awake alert and oriented.. HEENT: Normocephalic. Neck is supple. Pupils reactive. Nostrils clear. Oral cavity is moist. Neck reveals no JVD, carotid bruits, or thyromegaly. CHEST EXAMINATION: Trachea is central. Symmetrical expansion. Lung escalante clear to auscultation and percussion. CARDIAC: Normal S1, S2 with no gallops. No murmurs ABDOMEN: Soft. Surgical site is intact. Bowel sounds diminished. Mild tenderness. No guarding or rigidity. No abdominal bruits. Extremities: reveal no edema. No clubbing or cyanosis Neurologically awake, alert, oriented x3 with well-coordinated movements. No focal deficits noted Skin: No rash or skin lesions. Psychiatric: Coperative. Nonsuicidal, Musculoskeletal: No joint swelling or deformity. Normal range of motion. Assessment and Plan Assessment sigmoid colon mass. colonoscopy showed Near circumferential sigmoid colon mass at 28 cm from the anal verge status post multiple biopsies followed by tattooing with Aiyana ink/Status post low anterior resection. Postoperative day 1 Acute blood loss anemia likely secondary to GI bleed. Hemoglobin 6.9 on admission. Status post 1 unit of PRBC. Hgb currently 7.6. Shortness of breath and exertional dyspnea secondary to above Microcytic anemia with iron deficiency. Coronary artery disease with history of stent placement in February 2022 Coronary artery disease history of CABG GI and DVT prophylaxis with SCDs Plan: Patient is status post low anterior resection of the sigmoid colon. colonoscopy showed sigmoid colon mass. Follow-up biopsy report. Continue with iron supplementation and Protonix IV push daily. Monitor H&H closely. Transfusion of hemoglobin less than 7. Aspirin and Plavix is on hold due to acute GI bleed. Iron profile, B12 and folate levels ordered.B12 and folate within normal limits. IV iron supplementation x 3 dose. Continue to follow closely. Prognosis is guarded at this time. The impression and plan of care has been dictated by Carmita Johnson Nurse Practitioner as directed. Dr. Akbar MD I have performed a history and physical examination and medical decision making of this patient, discussed the same with the dictator, and agree with the dictators assessment and plan as written, documented as a scribe. Based on total visit time, I have performed more than 50% of this visit. Objective - Vital Signs Vital signs: Vital Signs Temp 98.1 F 04/14/22 08:56 Pulse 84 04/14/22 08:56 Resp 18 04/14/22 08:56 BP 91/57 04/14/22 08:56 Pulse Ox 95 04/14/22 08:56 FiO2 21 04/14/22 07:38 Intake & Output 04/13/22 04/14/22 04/14/22 18:59 06:59 18:59 Intake Total 2248 Output Total 550 235 Balance 1698 -235 Weight 82.1 kg Intake: IV 1650 Oral 598 Output: Urine 450 235 Uretheral (Bo) 35 Estimated Blood Loss 100 Other: Voiding Method Indwelling Catheter Indwelling Catheter Indwelling Catheter # Voids 2 - Labs CBC & Chem 7: 04/14/22 05:36 04/14/22 05:36 Labs: Abnormal Lab Results - Last 24 Hours (Table) 04/13/22 04/13/22 04/13/22 Range/Units 13:50 15:15 15:15 WBC (3.8-10.6) k/uL RBC 3.48 L (4.30-5.90) m/uL Hgb 8.3 L (13.0-17.5) gm/dL Hct 29.0 L (39.0-53.0) % MCH 23.7 L (25.0-35.0) pg MCHC 28.5 L (31.0-37.0) g/dL RDW 17.3 H (11.5-15.5) % Neutrophils # 9.1 H (1.3-7.7) k/uL Lymphocytes # 0.5 L (1.0-4.8) k/uL Sodium (137-145) mmol/L Carbon Dioxide 19 L (22-30) mmol/L Creatinine 1.53 H (0.66-1.25) mg/dL Glucose 190 H (74-99) mg/dL POC Glucose (mg/dL) 177 H (70-110) mg/dL Calcium 7.5 L (8.4-10.2) mg/dL 04/13/22 04/13/22 04/14/22 Range/Units 16:42 20:03 05:31 WBC (3.8-10.6) k/uL RBC (4.30-5.90) m/uL Hgb (13.0-17.5) gm/dL Hct (39.0-53.0) % MCH (25.0-35.0) pg MCHC (31.0-37.0) g/dL RDW (11.5-15.5) % Neutrophils # (1.3-7.7) k/uL Lymphocytes # (1.0-4.8) k/uL Sodium (137-145) mmol/L Carbon Dioxide (22-30) mmol/L Creatinine (0.66-1.25) mg/dL Glucose (74-99) mg/dL POC Glucose (mg/dL) 210 H 294 H 174 H (70-110) mg/dL Calcium (8.4-10.2) mg/dL 04/14/22 04/14/22 04/14/22 Range/Units 05:36 05:36 11:39 WBC 13.9 H (3.8-10.6) k/uL RBC 3.19 L (4.30-5.90) m/uL Hgb 7.6 L (13.0-17.5) gm/dL Hct 26.1 L (39.0-53.0) % MCH 23.8 L (25.0-35.0) pg MCHC 29.0 L (31.0-37.0) g/dL RDW 17.9 H (11.5-15.5) % Neutrophils # 11.8 H (1.3-7.7) k/uL Lymphocytes # (1.0-4.8) k/uL Sodium 136 L (137-145) mmol/L Carbon Dioxide 18 L (22-30) mmol/L Creatinine 2.00 H (0.66-1.25) mg/dL Glucose 135 H (74-99) mg/dL POC Glucose (mg/dL) 250 H (70-110) mg/dL Calcium 7.3 L (8.4-10.2) mg/dL Assessment and Plan Time with Patient: Less than 30
[2022-04-15] MEDS: SYMBICORT 80-4.5 MCG INHALER INHALATION PRN (08:37)
[2022-04-15] MEDS: HEPARIN SODIUM,PORCINE/PF 5,000 UNIT/0.5 ML SYRINGE SQ SCH ×3 (09:22→23:33)
[2022-04-15] MEDS: PANTOPRAZOLE 40 MG/10 ML VIAL IVP SCH (09:22)
[2022-04-15] MEDS: KETOROLAC 15 MG/ML 1 ML VIAL IVP PRN (09:22)
[2022-04-15] MEDS: ALVIMOPAN 12 MG CAPSULE PO SCH ×2 (09:23→21:58)
[2022-04-15] MEDS: ATORVASTATIN 40 MG TAB PO SCH (09:23)
[2022-04-15] MEDS: FAMOTIDINE 20 MG/2 ML VIAL IV SCH (09:23)
--- NOTE | 2022-04-15 10:21 | P.GSCN ---
History of Present Illness Consult date: 04/15/22 Reason for Consult: Retention History of present illness: The patient is a 72-year-old male with a past medical history significant for CAD s/p CABG and recent stent placement, COPD, DM, and GIB who was first seen at [facility] for shortness of breath and an episode of some chest discomfort. Patient was at the hospital and they determined his hemoglobin was 6.9. He received 1 unit of blood transfused on the way over from [facility]. Patient has been on aspirin Plavix and also taking Motrin for neuropathic pain recently. On 04/13/22 he underwent a low anterior resection for a sigmoid colon mass with Dr. Carrera. His Bo catheter was removed yesterday and he was unable void. He was bladder scanned showed 688 ml. Intermittent catheterization was attempted by nursing staff with only 100ml urine out. They then attempted a 16F coude catheter which resulted in him urinating around the catheter and not draining properly. Urology was consulted for this reason. Review of Systems - Constitutional Denies chills, Denies fever - Cardiovascular Reports chest pain - Gastrointestinal Denies abdominal pain - Genitourinary Denies dysuria, Denies hematuria Past Medical History Past Medical History: Coronary Artery Disease (CAD), Chest Pain / Angina, COPD, Diabetes Mellitus, Eye Disorder, GI Bleed, Hearing Disorder / Deafness, Myocardial Infarction (MA), Osteoarthritis (OA) Additional Past Medical History / Comment(s): See Dr Everett's H&P. Recent Flu, resolved now. More frequent angina. PREVIOUS DETACHED RETINA. "Poor kidney function 11/30, better now." Hard of hearing. Last Myocardial Infarction Date:: 2013 History of Any Multi-Drug Resistant Organisms: None Reported Past Surgical History: Appendectomy, Coronary Bypass/CABG, Heart Catheterization With Stent Additional Past Surgical History / Comment(s): TRIPLE CABG X2 (1994 AND 2013). Past Anesthesia/Blood Transfusion Reactions: No Reported Reaction Date of Last Stent Placement:: unknown Past Psychological History: No Psychological Hx Reported Smoking Status: Former smoker Past Alcohol Use History: Rare Past Drug Use History: None Reported - Past Family History Brother(s) Family Medical History: Cancer Medications and Allergies Home Medications Medication Instructions Recorded Confirmed Type Isosorbide Mononitrate ER [Imdur] 30 mg PO BID-W/MEALS 09/20/13 04/09/22 History atenoloL [Tenormin] 50 mg PO HS 09/20/13 04/09/22 History Nitroglycerin Sl Tabs [Nitrostat] 0.4 mg SL Q5M PRN 09/22/13 04/09/22 History ALPRAZolam [Xanax] 0.25 mg PO HS 11/26/21 04/09/22 History Clopidogrel [Plavix] 75 mg PO DAILY 11/26/21 04/09/22 History Fluticasone Propion/Salmeterol 1 puff INHALATION RT-BID PRN 11/26/21 04/09/22 History [Advair 100-50 Diskus] Rosuvastatin [Crestor] 20 mg PO DAILY 11/26/21 04/09/22 History Omeprazole [PriLOSEC] 20 mg PO DAILY 01/21/22 04/09/22 History Aspirin EC [Ecotrin Low Dose] 81 mg PO DAILY 04/09/22 04/09/22 History Empagliflozin [Jardiance] 25 mg PO DAILY 04/09/22 04/09/22 History glipiZIDE [Glucotrol] 5 mg PO BID-W/MEALS 04/09/22 04/09/22 History metFORMIN HCL [Glucophage] 1,000 mg PO BID-W/MEALS 04/09/22 04/09/22 History Allergies Allergy/AdvReac Type Severity Reaction Status Date / Time No Known Allergies Allergy Verified 04/09/22 21:41 Surgical - Exam Vital Signs Temp Pulse Resp BP Pulse Ox 98.0 F 77 20 160/77 99 04/09/22 19:47 04/09/22 19:47 04/09/22 19:47 04/09/22 19:47 04/09/22 19:47 General: Well developed, well nourished. No acute distress. HEENT: Head is atraumatic, normocephalic. Lungs: Respirations even and nonlabored. Abdomen/GI: Soft. prevena wound vac in place : No suprapubic tenderness. Skin: Warm and dry Neurologic: Alert and oriented 3, CN II-XII grossly intact. No focal deficits. Psychiatric: Appropriate mood and affect. Results - Labs 04/14/22 05:36 04/14/22 05:36 Abnormal Lab Results - Last 24 Hours (Table) 04/14/22 04/14/22 04/14/22 Range/Units 11:39 16:38 20:21 POC Glucose (mg/dL) 250 H 231 H 244 H (70-110) mg/dL 04/15/22 Range/Units 06:36 POC Glucose (mg/dL) 275 H (70-110) mg/dL - Imaging CT scan - abdomen: report reviewed CT scan - pelvis: report reviewed Assessment and Plan Assessment: The patient was seen up ambulating around in his room. He reports no difficulty urinating prior to his surgery. 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 Flomax started today. Nurse will check a PVR. If patient retaining > 300ml urine, will place a coude catheter. Serum creatinine 04/14/22 was 2.0. Todays's labs pending. Baseline creatinine in Feb 2022 was 1.35. Patient was unable to void this morning and PVR was 79ml. IV fluids wee stopped overnight. IVF restarted, RN will recheck PVR in a couple hours. THe above patient has been interviewed and examined by me. We will follow the pvr. He has an angiomyolipoma of the right kidney that can be observed. I agree with the above mentioned note. WE will follow. Jimenez Bruce MD (1) Urinary retention Current Visit: Yes Status: Acute Code(s): R33.9 - RETENTION OF URINE, UNSPECIFIED SNOMED Code(s): 934505464 (2) BPH (benign prostatic hyperplasia) Current Visit: Yes Status: Acute Code(s): N40.0 - BENIGN PROSTATIC HYPERPLASIA WITHOUT LOWER URINRY TRACT SYMP SNOMED Code(s): 561878746 Plan: - Continue Flomax - Check PVR - Monitor serum creatinine Impression and plan of care have been directed as dictated by the signing physician. Isabell Guzman nurse practitioner acting as scribe for signing physician. Isabell Guzman [facility] Palliative Care/Urology [facility] [id number] Email: [email or web address]
[2022-04-15] MEDS: HYDROmorphone 1 MG/ML 1 ML SYRINGE IVP PRN ×4 (10:27→20:37)
[2022-04-15] MEDS: ISOSORBIDE MONONITRATE ER 30 MG TAB.ER.24H PO SCH ×2 (10:28→20:37)
[2022-04-15 12:06] LABS: Glucose,Whole Blood 268 mg/dL (70-110)
[2022-04-15 12:14] LABS: Calcium 7.3 mg/dL (8.4-10.2)
[2022-04-15] MEDS: INSULIN ASPART (NovoLOG) 100 UNIT/ML VIAL SQ SCH ×3 (12:32→20:36)
--- NOTE | 2022-04-15 12:42 | P.PN ---
Subjective Progress Note Date: 04/15/22 HISTORY OF PRESENT ILLNESS: This is a 72-year-old male patient of Dr. Beto Everett with past medical history of coronary artery disease status post CABG and stent placements, diabetes, d yslipidemia. We have been asked to evaluate the patient for chest pain and shortness of breath. Patient states he was at his PCP office and due to lower extremity edema and shortness of breath he was instructed to go to [facility]. At [facility], patient was found to have a hemoglobin of 6.9. Other lab work done at [place]: BNP 997. Stool for occult blood positive. Troponin 0.034. BUN 33, creatinine 2.3. The CBC 6.8, platelet count 264. Chest x-ray small basilar effusion, hiatal hernia. Patient was transferred to [facility] for further evaluation for GI bleed and is scheduled for upper and lower scopes with Dr. Luther Everett. Patient denies having any chest pain. Shortness of breath and fatigue are continued. He states he is feeling somewhat better. Patient is evaluated in the emergency center. EKG sinus rhythm with nonspecific changes Hemoglobin 7.5, BUN 25 creatinine 1.72, potassium 4.2. Repeat troponin 0.026 and 0.030. Triglycerides 139, cholesterol 154, HDL 26, LDL 99. Cardiac catheterization 02/11/[address] Melton revealed successful stenting of the proximal OM1, distal segment of the SVG to the OM and proximal segment of t he SVG to OM. Echocardiogram 2019 EF 45%, mild to moderate MR, [id number] AR Home cardiac medications: Aspirin 81 mg daily, atenolol 50 mg at bedtime, Plavix 75 mg daily, Jardiance 25 mg daily, Imdur 30 mg twice daily, Nitrostat as needed, Crestor 20 mg daily 04/12/2022 The patient was seen and evaluated this morning. He underwent yesterday an EGD and that came in to be unremarkable and, which revealed a colon mass and biopsy was taken. Also subsequently underwent a computed tomography scan of the abdomen and pelvis for further investigation. Clinically he remains stable. He stated that the shortness of breath has been stable. No blood work as of yet for today. Hemodynamically he is stable. We still holding antiplatelet at this point. 2022 The patient was seen and evaluated this morning. He is stable from a cardiovascular standpoint of view in terms of chest pain or chest discomfort or shortness of breath. He is hemodynamically stable as well. The computed tomography scan revealed a colon mass and he is in process of having surgery later on today. He is maintaining normal sinus mechanism. Currently he is on beta taylor as well as he is on statin. Antiplatelet continues to be on hold because of the GI bleeding and also because of the surgery later on today. The echo revealed preserved biventricular systolic function was evidence of severe pulmonary hypertension and moderate to severe tricuspid regurgitation. 04/14/2022 Patient examined this morning at the bedside. Patient is status post low anterior resection. Postop day #1. Patient's aspirin and Plavix remain on hold. Patient denies chest pain or pressure. He denies shortness of breath. Vital signs are stable. Echocardiogram completed revealing ejection fraction 50-55%. 04/15/2022 Patient examined this morning at the beside. Patient denies chest pain or pressure. Denies SOB. Vital signs are stable. Patient developed issues with urinary retention overnight. Urology is following.Creatinine worse today at 2.86, up from 2.0 PHYSICAL EXAM: VITAL SIGNS: Reviewed. GENERAL: Well-developed in no acute distress. NECK: Supple. No JVD or thyromegaly LUNGS: Respirations even and unlabored. Lungs essentially clear to auscultation bilaterally. HEART: Regular rate and rhythm. S1 and S2 heard. EXTREMITIES: Normal range of motion. No clubbing or cyanosis. Peripheral pulses intact. No lower extremity edema ASSESSMENT: Acute blood loss anemia Sigmoid colon mass, status post low anterior resection Acute kidney injury, worsened by urinary retention Coronary artery disease with previous CABG and recent stenting in February 2022 Hyperlipidemia Diabetes PLAN: Continue current cardiac medications Per general surgery, may resume aspirin. Continue to hold Plavix. Patient resumed on IV fluids Monitor kidney function. Repeat in AM. Patient to follow up post discharge with Dr. Everett Further recommendations pending patient course Nurse practitioner note has been reviewed by physician. Signing provider agrees with the documented findings, assessment, and plan of care. Objective - Vital Signs Vital signs: Vital Signs Temp 97.7 F 04/15/22 09:16 Pulse 72 04/15/22 11:14 Resp 18 04/15/22 11:14 BP 120/68 04/15/22 11:14 Pulse Ox 92 L 04/15/22 11:14 FiO2 21 04/14/22 07:38 Intake & Output 04/14/22 04/15/22 04/15/22 18:59 06:59 18:59 Weight 82.1 kg Other: Voiding Method Indwelling Catheter Toilet Urinal # Voids 1 - Labs CBC & Chem 7: 04/14/22 05:36 04/15/22 10:51 Labs: Abnormal Lab Results - Last 24 Hours (Table) 04/14/22 04/14/22 04/15/22 Range/Units 16:38 20:21 06:36 Sodium (137-145) mmol/L Carbon Dioxide (22-30) mmol/L BUN (9-20) mg/dL Creatinine (0.66-1.25) mg/dL Glucose (74-99) mg/dL POC Glucose (mg/dL) 231 H 244 H 275 H (70-110) mg/dL Calcium (8.4-10.2) mg/dL 04/15/22 04/15/22 Range/Units 10:51 12:05 Sodium 133 L (137-145) mmol/L Carbon Dioxide 19 L (22-30) mmol/L BUN 32 H (9-20) mg/dL Creatinine 2.86 H (0.66-1.25) mg/dL Glucose 241 H (74-99) mg/dL POC Glucose (mg/dL) 268 H (70-110) mg/dL Calcium 7.3 L (8.4-10.2) mg/dL
[2022-04-15] MEDS ORDERED: SODIUM CHLORIDE 0.9% 1,000 ML IV ONE ×2 (12:47→15:02)
[2022-04-15] MEDS: ASPIRIN 81 MG PO SCH (13:17)
[2022-04-15 13:18] LABS: Anisocytosis Slight; Basophils % (A) 0 %; Eosinophils % (A) 0 %; HCT 27.4 % (39.0-53.0); HGB 7.9 gm/dL (13.0-17.5); Hypochromasia Marked; Lymphocytes # (A) 0.5 k/uL (1.0-4.8); Lymphocytes % (A) 7 %; MCH 23.6 pg (25.0-35.0); MCHC 28.7 g/dL (31.0-37.0); MCV 82.3 fL (80.0-100.0); Monocytes # (A) 0.5 k/uL (0-1.0); Monocytes % (A) 6 %; Neutrophils # (A) 6.7 k/uL (1.3-7.7); Neutrophils % (A) 85 %; Platelet Count 207 k/uL (150-450); Poikilocytosis Moderate; RBC 3.33 m/uL (4.30-5.90); RDW 18.9 % (11.5-15.5); WBC 7.9 k/uL (3.8-10.6)
--- NOTE | 2022-04-15 13:24 | P.PN ---
Subjective Progress Note Date: 04/15/22 CHIEF COMPLAINT: Colon mass HISTORY OF PRESENT ILLNESS: Patient is postop day #2 status post lower anterior resection for sigmoid colon mass. Pathology results pending. Patient reports his pain is controlled. Patient denies any nausea or vomiting. He denies any bowel activity. Initially there were concerns that patient was having urinary retention. However, bladder scans revealed minimal urine in the bladder. Patient's IV fluids were held yesterday evening by nursing staff because they were afraid of urinary retention and unable to get Bo catheter placed. Patient's creatinine is trending upwards to 2.86. Afebrile. WBC has normalized from 13.9-7.9 hemoglobin 7.9 platelets 207 sodium is 133 potassium is 5.0 creatinine 2.86 glucose 268 PHYSICAL EXAM: VITAL SIGNS: Reviewed. GENERAL: Well-developed in no acute distress. HEENT: No sclera icterus. Extraocular movements grossly intact. Moist buccal mucosa. Head is atraumatic, normocephalic. ABDOMEN: Soft. Nondistended. Incision site clean dry and intact NEUROLOGIC: Alert and oriented. Cranial nerves II through XII grossly intact. ASSESSMENT: 1. 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 Anemia due to GI bleed from the colon mass 3. History of coronary disease with stents placed in February 2022 PLAN: -Continue clear liquid diet -For low urine output patient will be given a 1 L fluid bolus. Normal saline has been increased to 125 mL per hour -Encouraged patient ambulate -Encouraged patient to use incentive spirometer -Okay to resume aspirin. Continue to hold Plavix -Continue pain management -GI prophylaxis Pepcid and DVT prophylaxis subcu heparin Physician Adult School Counselor note has been reviewed by physician. Signing provider agrees with the documented findings, assessment, and plan of care. Objective - Vital Signs Vital signs: Vital Signs Temp 97.7 F 04/15/22 09:16 Pulse 72 04/15/22 11:14 Resp 18 04/15/22 11:14 BP 120/68 04/15/22 11:14 Pulse Ox 92 L 04/15/22 11:14 FiO2 21 04/14/22 07:38 Intake & Output 04/14/22 04/15/22 04/15/22 18:59 06:59 18:59 Weight 82.1 kg Other: Voiding Method Indwelling Catheter Toilet Urinal # Voids 1 - Labs CBC & Chem 7: 04/15/22 10:51 04/15/22 10:51 Labs: Abnormal Lab Results - Last 24 Hours (Table) 04/14/22 04/14/22 04/15/22 Range/Units 16:38 20:21 06:36 RBC (4.30-5.90) m/uL Hgb (13.0-17.5) gm/dL Hct (39.0-53.0) % MCH (25.0-35.0) pg MCHC (31.0-37.0) g/dL RDW (11.5-15.5) % Lymphocytes # (1.0-4.8) k/uL Sodium (137-145) mmol/L Carbon Dioxide (22-30) mmol/L BUN (9-20) mg/dL Creatinine (0.66-1.25) mg/dL Glucose (74-99) mg/dL POC Glucose (mg/dL) 231 H 244 H 275 H (70-110) mg/dL Calcium (8.4-10.2) mg/dL 04/15/22 04/15/22 04/15/22 Range/Units 10:51 10:51 12:05 RBC 3.33 L (4.30-5.90) m/uL Hgb 7.9 L (13.0-17.5) gm/dL Hct 27.4 L (39.0-53.0) % MCH 23.6 L (25.0-35.0) pg MCHC 28.7 L (31.0-37.0) g/dL RDW 18.9 H (11.5-15.5) % Lymphocytes # 0.5 L (1.0-4.8) k/uL Sodium 133 L (137-145) mmol/L Carbon Dioxide 19 L (22-30) mmol/L BUN 32 H (9-20) mg/dL Creatinine 2.86 H (0.66-1.25) mg/dL Glucose 241 H (74-99) mg/dL POC Glucose (mg/dL) 268 H (70-110) mg/dL Calcium 7.3 L (8.4-10.2) mg/dL
[2022-04-15] MEDS ORDERED: DEXTROSE 50% SYRINGE 50 ML IVP PRN ×2 (13:37)
--- NOTE | 2022-04-15 15:06 | P.PN ---
Subjective Progress Note Date: 04/15/22 Patient is a 72-year-old male with a known history of coronary artery disease status post CABG and recent stent placement in February 2022 initially presented to ER with complaints of shortness of breath and exertional dyspnea. Patient initially thought it was due to his heart condition and went to ER. Patient was found to have a hemoglobin of 6.9 and received 1 unit of PRBC. Patient was tested positive for FOBT. Patient is also taking aspirin and Plavix from recent stent placement. Patient also states that he has been taking Motrin for the last couple of weeks for his neuropathy pain in his feet. Denies any complaints of hematemesis dark-colored stools. Patient was transferred to [facility] for GI evaluation. On admission WBC 4.4 hemoglobin 7.5 MCV 79.7 and platelets 243 Sodium 143 potassium 4.2 chloride 101 bicarb is 19 BUN 25 and creatinine 1.72 Calcium 7.4 04/11/2022 Patient is currently resting in bed. Awake alert and oriented x3. No complaints of chest pain or shortness of breath. Otherwise underwent EGD and colonoscopy today. EGD showed moderate size hiatal hernia but no evidence of esophagitis or peptic ulcer disease. No evidence of GI bleed. Colonoscopy showed a) Near circumferential sigmoid colon mass at 28 cm from the anal verge status post multiple biopsies followed by tattooing with Aiyana ink b) 5 mm rectal polyp status post polypectomy General surgery was consulted and follow-up biopsy report.. Hemoglobin is stable at 8.6 otherwise. Denies any complaints of nausea or vomiting. Patient was started on clear liquid diet and follow H&H. 04/12/2022 Patient is currently resting in the bed. Awake alert and oriented x3. No complaints of chest pain or shortness of breath. No nausea vomiting abdominal pain or diarrhea. No cough or sputum production. Patient was seen by general surgery and is planning for or tomorrow. Antiplatelets on hold. Laboratory data reviewed. Patient is being current on iron supplementation Protonix IV push daily. 04/13/2022 Patient is currently lying in bed. Awake alert and oriented. Pain is fairly controlled. Status post low anterior resection of the sigmoid colon. Postoperative day 0 No fever no chills. Currently on room air. No nausea vomiting or diarrhea. Laboratory data showed WBC 5.3 hemoglobin 7.7 platelets 216 sodium 140 potassium 3.8 chloride 106 bicarb is 22 BUN 16 and creatinine 1.69. Calcium 7.5. General surgery and cardiology is on board. 04/14/2022 Patient is evaluated today sitting up in chair currently postoperative day #1 low anterior resection for sigmoid colon mass with pathology currently pending at this time. Patient is currently on clear liquid diet. Not passing gas yet and no BM. Reports controlled incisional abdominal pain. Wound vac is in place and intact. Patient is currently on D5 0.45 normal saline with potassium. Creatinine is up to 2.0 today. 04/15/2022 Patient is evaluated today on stepdown unit currently postoperative day #2 sigmoid colon resection. Aspirin and plavix remain on hold. Cardiology following closely. Blood pressure has improved to 139/71 today. Indwelling catheter removed yesterday afternoon, patient has issues with urinary retention overnight and for this reason normal saline was placed on hold. Patient has been unable to void and urinary strait cath was unable to produce urine. Bladder scan today showing 70 mls in urinary bladder. Creatinine is up to 2.86 today. Urology has been consulted for placement of urinary catheter and IV fluids have been resumed at an increased rate. Continues on clear liquid diet. Reports abdominal pain is controlled today. Blood glucose has been increased and insulin has been added. Remains afebrile, heart rate 72, blood pressure 120/68, 92% room air. Review of Systems Constitutional: Denied any fatigue denied any fever. Cardio vascular: Denied any chest pain, palpitations Gastrointestinal: Denied any nausea, vomiting, diarrhea, not passing gas no BM. reports minimal abdominal pain. Pulmonary: Denied any shortness of breath cough Neurologic Denied any new focal deficits All inpatient medications were reviewed and appropriate changes in these medications as dictated in the interval history and assessment and plan. PHYSICAL EXAMINATION: Patient is sitting up in chair, no acute distress, awake alert and oriented.. HEENT: Normocephalic. Neck is supple. Pupils reactive. Nostrils clear. Oral cavity is moist. Neck reveals no JVD, carotid bruits, or thyromegaly. CHEST EXAMINATION: Trachea is central. Symmetrical expansion. Lung escalante clear to auscultation and percussion. CARDIAC: Normal S1, S2 with no gallops. No murmurs ABDOMEN: Soft. Surgical site is intact. Wound vac in place. Bowel sounds diminished. Mild tenderness. No guarding or rigidity. No abdominal bruits. Extremities: reveal no edema. No clubbing or cyanosis Neurologically awake, alert, oriented x3 with well-coordinated movements. No focal deficits noted Skin: No rash or skin lesions. Psychiatric: Coperative. Nonsuicidal, Musculoskeletal: No joint swelling or deformity. Normal range of motion. Assessment and Plan Assessment Sigmoid colon mass. colonoscopy showed near circumferential sigmoid colon mass at 28 cm from the anal verge status post multiple biopsies followed by tattooing with Aiyana ink/Status post low anterior resection. Postoperative day #2 Acute blood loss anemia likely secondary to GI bleed. Hemoglobin 6.9 on admission. Status post 1 unit of PRBC. Hgb currently 7.9. Shortness of breath and exertional dyspnea secondary to above Postoperative urinary retention Acute kidney injury secondary prerenal exacerbated by obstructive uropathy. Microcytic anemia with iron deficiency. Coronary artery disease with history of stent placement in February 2022 Coronary artery disease history of CABG GI and DVT prophylaxis with SCDs Full Code Plan: Clear liquid diet per surgery Colonoscopy showed sigmoid colon mass. Follow-up biopsy report. Continue with iron supplementation and Protonix IV push daily. Monitor H&H closely. Transfusion of hemoglobin less than 7. Aspirin and Plavix is on hold due to acute GI bleed. Iron profile, B12 and folate levels ordered.B12 and folate within normal limits. IV iron supplementation x 3 dose. Urology has been consulted for placement of indwelling catheter Continue IV fluids normal saline has been increased to 125 mls/hr AM labs The impression and plan of care has been dictated by Carmita Johnson, Nurse Practitioner as directed. Dr. Akbar MD I have performed a history and physical examination and medical decision making of this patient, discussed the same with the dictator, and agree with the dictators assessment and plan as written, documented as a scribe. Based on total visit time, I have performed more than 50% of this visit. Objective - Vital Signs Vital signs: Vital Signs Temp 98.1 F 04/14/22 21:00 Pulse 81 04/15/22 04:24 Resp 18 04/15/22 04:24 BP 139/71 04/15/22 04:24 Pulse Ox 93 L 04/15/22 08:37 FiO2 21 04/14/22 07:38 Intake & Output 04/14/22 04/15/22 04/15/22 18:59 06:59 18:59 Weight 82.1 kg Other: Voiding Method Indwelling Catheter Toilet Urinal - Labs CBC & Chem 7: 04/15/22 10:51 04/15/22 10:51 Labs: Abnormal Lab Results - Last 24 Hours (Table) 04/14/22 04/14/22 04/14/22 Range/Units 11:39 16:38 20:21 POC Glucose (mg/dL) 250 H 231 H 244 H (70-110) mg/dL 04/15/22 Range/Units 06:36 POC Glucose (mg/dL) 275 H (70-110) mg/dL Assessment and Plan Time with Patient: Less than 30
[2022-04-15 16:49] LABS: Glucose,Whole Blood 221 mg/dL (70-110)
[2022-04-15 20:03] LABS: Glucose,Whole Blood 176 mg/dL (70-110)
[2022-04-15] MEDS: atenoloL 50 MG TAB PO SCH (20:37)
[2022-04-15] MEDS ORDERED: INSULIN DETEMIR (LEVEMIR) 100 UNIT/ML SYR SQ SCH (21:00)
[2022-04-16] MEDS: HYDROmorphone 1 MG/ML 1 ML SYRINGE IVP PRN (06:04)
[2022-04-16] MEDS: SODIUM CHLORIDE 0.9% 1,000 ML IV SCH ×3 (06:58→21:48)
[2022-04-16 07:15] LABS: Glucose,Whole Blood 139 mg/dL (70-110)
[2022-04-16 07:52] LABS: Anisocytosis Slight; HCT 25.4 % (39.0-53.0); HGB 7.3 gm/dL (13.0-17.5); Hypochromasia Marked; MCH 24.9 pg (25.0-35.0); MCHC 28.8 g/dL (31.0-37.0); MCV 86.3 fL (80.0-100.0); Mean Platelet Volume 7.6; Platelet Count 183 k/uL (150-450); Poikilocytosis Slight; RBC 2.94 m/uL (4.30-5.90); RDW 19.3 % (11.5-15.5)
[2022-04-16 08:04] LABS: Calcium 6.9 mg/dL (8.4-10.2)
[2022-04-16] MEDS: SYMBICORT 80-4.5 MCG INHALER INHALATION PRN (08:15)
[2022-04-16] MEDS: INSULIN ASPART (NovoLOG) 100 UNIT/ML VIAL SQ SCH ×5 (08:38→21:51)
[2022-04-16] MEDS: HEPARIN SODIUM,PORCINE/PF 5,000 UNIT/0.5 ML SYRINGE SQ SCH ×3 (08:38→23:29)
[2022-04-16] MEDS: ASPIRIN 81 MG PO SCH (08:39)
[2022-04-16] MEDS: TAMSULOSIN 0.4 MG CAP.ER.24H PO SCH (08:39)
[2022-04-16] MEDS: ATORVASTATIN 40 MG TAB PO SCH (08:39)
[2022-04-16] MEDS: FAMOTIDINE 20 MG/2 ML VIAL IV SCH (08:39)
[2022-04-16] MEDS: PANTOPRAZOLE 40 MG/10 ML VIAL IVP SCH (08:39)
[2022-04-16] MEDS: ISOSORBIDE MONONITRATE ER 30 MG TAB.ER.24H PO SCH ×2 (08:39→21:49)
[2022-04-16] MEDS ORDERED: SODIUM CHLORIDE 0.9% 1,000 ML IV SCH (10:15)
[2022-04-16] MEDS: HYDROcodone/APAP 5-325MG 1 EACH TAB PO PRN ×3 (10:16→21:49)
[2022-04-16] MEDS: ALVIMOPAN 12 MG CAPSULE PO SCH (10:18)
--- NOTE | 2022-04-16 10:34 | P.PN ---
Subjective Progress Note Date: 04/16/22 CHIEF COMPLAINT: Colon mass HISTORY OF PRESENT ILLNESS: Patient is postop day #3 status post lower anterior resection for sigmoid colon mass. Pathology results pending. Patient is complaining of abdominal incision pain this morning after having difficulty with the IV pole and ambulating to the bathroom. He is having bowel movements. Denies any nausea or vomiting. Tolerating liquid diet. It is not clear if accurate I's and O's are being monitored. Patient had 225 mL urine output recorded through the night. Urine is still dark. Afebrile. WBC is 8.0 Hgb 7.9-7.3 platelets 183 sodium is 134 potassium is 5.0 creatinine is down from 2.86-2.29. Aspirin has been resumed PHYSICAL EXAM: VITAL SIGNS: Reviewed. GENERAL: Well-developed in no acute distress. HEENT: No sclera icterus. Extraocular movements grossly intact. Moist buccal mucosa. Head is atraumatic, normocephalic. ABDOMEN: Soft. Nondistended. Incision site clean dry and intact NEUROLOGIC: Alert and oriented. Cranial nerves II through XII grossly intact. ASSESSMENT: 1. 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 Anemia due to GI bleed from the colon mass 3. History of coronary disease with stents placed in February 2022 with prior CABG PLAN: -Advance diet to full liquids -Patient continues to have low urine output will give a 500 mL fluid bolus. -Continue maintenance IV fluids at 125 per hour -Continue to monitor strict I&O -Follow up on path results -Encouraged patient ambulate -Encouraged patient to use incentive spirometer -Continue to hold Plavix -Continue pain management -GI prophylaxis Pepcid and DVT prophylaxis subcu heparin Physician Layaway Clerk note has been reviewed by physician. Signing provider agrees with the documented findings, assessment, and plan of care. Objective - Vital Signs Vital signs: Vital Signs Temp 97.6 F 04/16/22 06:55 Pulse 69 04/16/22 06:55 Resp 16 04/16/22 06:55 BP 124/70 04/16/22 06:55 Pulse Ox 96 04/16/22 08:16 FiO2 21 04/16/22 08:16 Intake & Output 04/15/22 04/16/22 04/16/22 18:59 06:59 18:59 Intake Total 1740 Output Total 1 225 Balance -1 1515 Intake: Intake, IV Titration 1500 Amount Sodium Chloride 0.9% 1, 1500 000 ml @ 125 mls/hr IV . Q8H [facility] Rx#:[id number] Oral 240 Output: Urine 225 Stool 1 Other: Voiding Method Toilet Indwelling Catheter Urinal # Voids 1 # Bowel Movements 1 - Labs CBC & Chem 7: 04/16/22 07:07 04/16/22 07:07 Labs: Abnormal Lab Results - Last 24 Hours (Table) 04/15/22 04/15/22 04/15/22 Range/Units 10:51 10:51 12:05 RBC 3.33 L (4.30-5.90) m/uL Hgb 7.9 L (13.0-17.5) gm/dL Hct 27.4 L (39.0-53.0) % MCH 23.6 L (25.0-35.0) pg MCHC 28.7 L (31.0-37.0) g/dL RDW 18.9 H (11.5-15.5) % Lymphocytes # 0.5 L (1.0-4.8) k/uL Sodium 133 L (137-145) mmol/L Carbon Dioxide 19 L (22-30) mmol/L BUN 32 H (9-20) mg/dL Creatinine 2.86 H (0.66-1.25) mg/dL Glucose 241 H (74-99) mg/dL POC Glucose (mg/dL) 268 H (70-110) mg/dL Calcium 7.3 L (8.4-10.2) mg/dL 04/15/22 04/15/22 04/16/22 Range/Units 16:47 20:01 06:56 RBC (4.30-5.90) m/uL Hgb (13.0-17.5) gm/dL Hct (39.0-53.0) % MCH (25.0-35.0) pg MCHC (31.0-37.0) g/dL RDW (11.5-15.5) % Lymphocytes # (1.0-4.8) k/uL Sodium (137-145) mmol/L Carbon Dioxide (22-30) mmol/L BUN (9-20) mg/dL Creatinine (0.66-1.25) mg/dL Glucose (74-99) mg/dL POC Glucose (mg/dL) 221 H 176 H 139 H (70-110) mg/dL Calcium (8.4-10.2) mg/dL 04/16/22 04/16/22 Range/Units 07:07 07:07 RBC 2.94 L (4.30-5.90) m/uL Hgb 7.3 L (13.0-17.5) gm/dL Hct 25.4 L (39.0-53.0) % MCH 24.9 L (25.0-35.0) pg MCHC 28.8 L (31.0-37.0) g/dL RDW 19.3 H (11.5-15.5) % Lymphocytes # (1.0-4.8) k/uL Sodium 134 L (137-145) mmol/L Carbon Dioxide 14 L (22-30) mmol/L BUN 38 H (9-20) mg/dL Creatinine 2.29 H (0.66-1.25) mg/dL Glucose 133 H (74-99) mg/dL POC Glucose (mg/dL) (70-110) mg/dL Calcium 6.9 L (8.4-10.2) mg/dL
--- NOTE | 2022-04-16 11:02 | P.PN ---
Subjective Progress Note Date: 04/16/22 The patient is a 72-year-old male with a past medical history significant for CAD s/p CABG and recent stent placement, COPD, DM, and GIB who was first seen at [facility] for shortness of breath and an episode of some chest discomfort. Patient was at the hospital and they determined his hemoglobin was 6.9. He received 1 unit of blood transfused on the way over from [facility]. Patient has been on aspirin Plavix and also taking Motrin for neuropathic pain recently. On 04/13/22 he underwent a low anterior resection for a sigmoid colon mass with Dr. Carrera. His Mccormick catheter was removed yesterday and he was unable void. He was bladder scanned showed 688 ml. Intermittent catheterization was attempted by nursing staff with only 100ml urine out. They then attempted a 16F coude catheter which resulted in him urinating around the catheter and not draining properly. Urology was consulted for this reason. 04/15 The patient was seen up ambulating around in his room. He reports no difficulty urinating prior to his surgery. 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 Flomax started today. Nurse will check a PVR. If patient retaining > 300ml urine, will place a coude catheter. Serum creatinine 04/14/22 was 2.0. Todays's labs pending. Baseline creatinine in Feb 2022 was 1.35. Patient was unable to void this morning and PVR was 79ml. IV fluids were stopped overnight. IVF restarted, RN will recheck PVR in a couple hours. Patient was able to void, volume unknown because he missed the hat in the toilet. Serum Creatinine 2.86. Surgery feels the patient is hypovolemic and wants a mccormick catheter and ordered a bolus. A 15 Nepalese coude was placed by RN Objective - Vital Signs Vital signs: Vital Signs Temp 97.6 F 04/16/22 06:55 Pulse 69 04/16/22 06:55 Resp 16 04/16/22 06:55 BP 124/70 04/16/22 06:55 Pulse Ox 96 04/16/22 08:16 FiO2 21 04/16/22 08:16 Intake & Output 04/15/22 04/16/22 04/16/22 18:59 06:59 18:59 Intake Total 1740 Output Total 1 225 Balance -1 1515 Intake: Intake, IV Titration 1500 Amount Sodium Chloride 0.9% 1, 1500 000 ml @ 125 mls/hr IV . Q8H [facility] Rx#:[id number] Oral 240 Output: Urine 225 Stool 1 Other: Voiding Method Toilet Indwelling Catheter Urinal # Voids 1 # Bowel Movements 1 - Exam General: Well developed, well nourished. No acute distress. HEENT: Head is atraumatic, normocephalic. Lungs: Respirations even and nonlabored. Abdomen/GI: Soft. prevena wound vac in place : Mccormick catheter draining clear yellow urine Skin: Warm and dry Neurologic: Alert and oriented 3, CN II-XII grossly intact. No focal deficits. Psychiatric: Appropriate mood and affect. - Labs CBC & Chem 7: 04/16/22 07:07 04/16/22 07:07 Labs: Abnormal Lab Results - Last 24 Hours (Table) 04/15/22 04/15/22 04/15/22 Range/Units 10:51 10:51 12:05 RBC 3.33 L (4.30-5.90) m/uL Hgb 7.9 L (13.0-17.5) gm/dL Hct 27.4 L (39.0-53.0) % MCH 23.6 L (25.0-35.0) pg MCHC 28.7 L (31.0-37.0) g/dL RDW 18.9 H (11.5-15.5) % Lymphocytes # 0.5 L (1.0-4.8) k/uL Sodium 133 L (137-145) mmol/L Carbon Dioxide 19 L (22-30) mmol/L BUN 32 H (9-20) mg/dL Creatinine 2.86 H (0.66-1.25) mg/dL Glucose 241 H (74-99) mg/dL POC Glucose (mg/dL) 268 H (70-110) mg/dL Calcium 7.3 L (8.4-10.2) mg/dL 04/15/22 04/15/22 04/16/22 Range/Units 16:47 20:01 06:56 RBC (4.30-5.90) m/uL Hgb (13.0-17.5) gm/dL Hct (39.0-53.0) % MCH (25.0-35.0) pg MCHC (31.0-37.0) g/dL RDW (11.5-15.5) % Lymphocytes # (1.0-4.8) k/uL Sodium (137-145) mmol/L Carbon Dioxide (22-30) mmol/L BUN (9-20) mg/dL Creatinine (0.66-1.25) mg/dL Glucose (74-99) mg/dL POC Glucose (mg/dL) 221 H 176 H 139 H (70-110) mg/dL Calcium (8.4-10.2) mg/dL 04/16/22 04/16/22 Range/Units 07:07 07:07 RBC 2.94 L (4.30-5.90) m/uL Hgb 7.3 L (13.0-17.5) gm/dL Hct 25.4 L (39.0-53.0) % MCH 24.9 L (25.0-35.0) pg MCHC 28.8 L (31.0-37.0) g/dL RDW 19.3 H (11.5-15.5) % Lymphocytes # (1.0-4.8) k/uL Sodium 134 L (137-145) mmol/L Carbon Dioxide 14 L (22-30) mmol/L BUN 38 H (9-20) mg/dL Creatinine 2.29 H (0.66-1.25) mg/dL Glucose 133 H (74-99) mg/dL POC Glucose (mg/dL) (70-110) mg/dL Calcium 6.9 L (8.4-10.2) mg/dL Assessment and Plan Assessment: The patient is sitting up in the chair. He denies any pain. Mccormick catheter in place draining clear, yellow urine. Serum creatinine trending down 2.29 today. (1) Urinary retention Current Visit: Yes Status: Acute Code(s): R33.9 - RETENTION OF URINE, UNSPECIFIED SNOMED Code(s): 971392743 (2) BPH (benign prostatic hyperplasia) Current Visit: Yes Status: Acute Code(s): N40.0 - BENIGN PROSTATIC HYPERPLASIA WITHOUT LOWER URINRY TRACT SYMP SNOMED Code(s): 485976114 Plan: - Continue Flomax - Monitor serum creatinine - Removal of Mccormick catheter per surgery's discretion Impression and plan of care have been directed as dictated by the signing physician. Isabell Guzman nurse practitioner acting as scribe for signing physician. Isabell Guzman [facility]- Palliative Care/Urology Spectralink [phone] Email: [email or web address] I have evaluated the above patient and concur with the above note. The catheter can come out whenever surgery wants it out. No further urological care should be necessary. Jimenez Bruce MD
[2022-04-16 11:14] LABS: Glucose,Whole Blood 232 mg/dL (70-110)
[2022-04-16] MEDS ORDERED: SODIUM CHLORIDE 0.9% 1,000 ML IV ONE ×2 (11:58→14:28)
--- NOTE | 2022-04-16 13:43 | P.PN ---
Subjective Progress Note Date: 04/16/22 Patient is a 72-year-old male with a known history of coronary artery disease status post CABG and recent stent placement in February 2022 initially presented to ER with complaints of shortness of breath and exertional dyspnea. Patient initially thought it was due to his heart condition and went to ER. Patient was found to have a hemoglobin of 6.9 and received 1 unit of PRBC. Patient was tested positive for FOBT. Patient is also taking aspirin and Plavix from recent stent placement. Patient also states that he has been taking Motrin for the last couple of weeks for his neuropathy pain in his feet. Denies any complaints of hematemesis dark-colored stools. Patient was transferred to [facility] for GI evaluation. On admission WBC 4.4 hemoglobin 7.5 MCV 79.7 and platelets 243 Sodium 143 potassium 4.2 chloride 101 bicarb is 19 BUN 25 and creatinine 1.72 Calcium 7.4 04/11/2022 Patient is currently resting in bed. Awake alert and oriented x3. No complaints of chest pain or shortness of breath. Otherwise underwent EGD and colonoscopy today. EGD showed moderate size hiatal hernia but no evidence of esophagitis or peptic ulcer disease. No evidence of GI bleed. Colonoscopy showed a) Near circumferential sigmoid colon mass at 28 cm from the anal verge status post multiple biopsies followed by tattooing with Aiyana ink b) 5 mm rectal polyp status post polypectomy General surgery was consulted and follow-up biopsy report.. Hemoglobin is stable at 8.6 otherwise. Denies any complaints of nausea or vomiting. Patient was started on clear liquid diet and follow H&H. 04/12/2022 Patient is currently resting in the bed. Awake alert and oriented x3. No complaints of chest pain or shortness of breath. No nausea vomiting abdominal pain or diarrhea. No cough or sputum production. Patient was seen by general surgery and is planning for or tomorrow. Antiplatelets on hold. Laboratory data reviewed. Patient is being current on iron supplementation Protonix IV push daily. 04/13/2022 Patient is currently lying in bed. Awake alert and oriented. Pain is fairly controlled. Status post low anterior resection of the sigmoid colon. Postoperative day 0 No fever no chills. Currently on room air. No nausea vomiting or diarrhea. Laboratory data showed WBC 5.3 hemoglobin 7.7 platelets 216 sodium 140 potassium 3.8 chloride 106 bicarb is 22 BUN 16 and creatinine 1.69. Calcium 7.5. General surgery and cardiology is on board. 04/14/2022 Patient is evaluated today sitting up in chair currently postoperative day #1 low anterior resection for sigmoid colon mass with pathology currently pending at this time. Patient is currently on clear liquid diet. Not passing gas yet and no BM. Reports controlled incisional abdominal pain. Wound vac is in place and intact. Patient is currently on D5 0.45 normal saline with potassium. Creatinine is up to 2.0 today. 04/15/2022 Patient is evaluated today on stepdown unit currently postoperative day #2 sigmoid colon resection. Aspirin and plavix remain on hold. Cardiology following closely. Blood pressure has improved to 139/71 today. Indwelling catheter removed yesterday afternoon, patient has issues with urinary retention overnight and for this reason normal saline was placed on hold. Patient has been unable to void and urinary strait cath was unable to produce urine. Bladder scan today showing 70 mls in urinary bladder. Creatinine is up to 2.86 today. Urology has been consulted for placement of urinary catheter and IV fluids have been resumed at an increased rate. Continues on clear liquid diet. Reports abdominal pain is controlled today. Blood glucose has been increased and insulin has been added. Remains afebrile, heart rate 72, blood pressure 120/68, 92% room air. 04/16/2022 Patient is evaluated on medical floor. he is postoperative day #3 sigmoid colon resection. Patient had urinary catheter placed by urology for urinary retention. Overnight has had 225 mLs of urine output, he is continued on normal saline at 125 mls/hr. Creatinine today has improved 2.29. Sodium up to 134. Renal ultrasound has been ordered and will repeat labs in AM. Patient had a bowel movement today he reports. He has some abdominal distention, states he is not passing much gas and feels bloated. Hemodynamically stable. Review of Systems Constitutional: Denied any fatigue denied any fever. Cardio vascular: Denied any chest pain, palpitations Gastrointestinal: Denied any nausea, vomiting, diarrhea, reports bloating, had a BM. Pulmonary: Denied any shortness of breath cough Neurologic Denied any new focal deficits All inpatient medications were reviewed and appropriate changes in these medications as dictated in the interval history and assessment and plan. PHYSICAL EXAMINATION: Patient is sitting up in chair, no acute distress, awake alert and oriented.. HEENT: Normocephalic. Neck is supple. Pupils reactive. Nostrils clear. Oral cavity is moist. Neck reveals no JVD, carotid bruits, or thyromegaly. CHEST EXAMINATION: Trachea is central. Symmetrical expansion. Lung escalante clear to auscultation and percussion. CARDIAC: Normal S1, S2 with no gallops. No murmurs ABDOMEN: Soft. Surgical site is intact. Wound vac in place. Bowel sounds diminished. Mild tenderness. No guarding or rigidity. No abdominal bruits. Extremities: reveal no edema. No clubbing or cyanosis Neurologically awake, alert, oriented x3 with well-coordinated movements. No focal deficits noted Skin: No rash or skin lesions. Psychiatric: Coperative. Nonsuicidal, Musculoskeletal: No joint swelling or deformity. Normal range of motion. Assessment and Plan Assessment Sigmoid colon mass. colonoscopy showed near circumferential sigmoid colon mass at 28 cm from the anal verge status post multiple biopsies followed by tattooing with Aiyana ink/Status post low anterior resection. Postoperative day #3 Acute blood loss anemia likely secondary to GI bleed. Hemoglobin 6.9 on admission. Status post 1 unit of PRBC. Hgb currently 7.3. Shortness of breath and exertional dyspnea secondary to above Postoperative urinary retention with indwelling catheter placed Acute kidney injury secondary prerenal from poor oral intake, dehydration exacerbated by obstructive uropathy. Microcytic anemia with iron deficiency. Hyperglycemia Coronary artery disease with history of stent placement in February 2022 Coronary artery disease history of CABG GI and DVT prophylaxis with SCDs Full Code Plan: Diet advanced to full liquid Colonoscopy showed sigmoid colon mass. Follow-up biopsy report. Continue with iron supplementation and Protonix IV push daily. Monitor H&H closely. Transfusion of hemoglobin less than 7. Aspirin and Plavix is on hold due to acute GI bleed. Iron profile, B12 and folate levels ordered.B12 and folate within normal limits. IV iron supplementation x 3 dose. Continue IV fluids normal saline has been increased to 125 mls/hr Status post fluid bolus. Monitor intake and output. Notify provider for urine output less than 30 mls/hr. Renal ultrasound AM labs The impression and plan of care has been dictated by Carmita Johnson Nurse Practitioner as directed. Dr. Akbar MD I have performed a history and physical examination and medical decision making of this patient, discussed the same with the dictator, and agree with the dictators assessment and plan as written, documented as a scribe. Based on total visit time, I have performed more than 50% of this visit. Objective - Vital Signs Vital signs: Vital Signs Temp 97.6 F 04/16/22 06:55 Pulse 69 04/16/22 06:55 Resp 16 04/16/22 06:55 BP 124/70 04/16/22 06:55 Pulse Ox 96 04/16/22 08:16 FiO2 21 04/16/22 08:16 Intake & Output 04/15/22 04/16/22 04/16/22 18:59 06:59 18:59 Intake Total 1740 Output Total 1 225 Balance -1 1515 Intake: Intake, IV Titration 1500 Amount Sodium Chloride 0.9% 1, 1500 000 ml @ 125 mls/hr IV . Q8H [facility] Rx#:[id number] Oral 240 Output: Urine 225 Stool 1 Other: Voiding Method Toilet Indwelling Catheter Urinal # Voids 1 # Bowel Movements 1 - Labs CBC & Chem 7: 04/16/22 07:07 04/16/22 07:07 Labs: Abnormal Lab Results - Last 24 Hours (Table) 04/15/22 04/15/22 04/15/22 Range/Units 10:51 10:51 12:05 RBC 3.33 L (4.30-5.90) m/uL Hgb 7.9 L (13.0-17.5) gm/dL Hct 27.4 L (39.0-53.0) % MCH 23.6 L (25.0-35.0) pg MCHC 28.7 L (31.0-37.0) g/dL RDW 18.9 H (11.5-15.5) % Lymphocytes # 0.5 L (1.0-4.8) k/uL Sodium 133 L (137-145) mmol/L Carbon Dioxide 19 L (22-30) mmol/L BUN 32 H (9-20) mg/dL Creatinine 2.86 H (0.66-1.25) mg/dL Glucose 241 H (74-99) mg/dL POC Glucose (mg/dL) 268 H (70-110) mg/dL Calcium 7.3 L (8.4-10.2) mg/dL 04/15/22 04/15/22 04/16/22 Range/Units 16:47 20:01 06:56 RBC (4.30-5.90) m/uL Hgb (13.0-17.5) gm/dL Hct (39.0-53.0) % MCH (25.0-35.0) pg MCHC (31.0-37.0) g/dL RDW (11.5-15.5) % Lymphocytes # (1.0-4.8) k/uL Sodium (137-145) mmol/L Carbon Dioxide (22-30) mmol/L BUN (9-20) mg/dL Creatinine (0.66-1.25) mg/dL Glucose (74-99) mg/dL POC Glucose (mg/dL) 221 H 176 H 139 H (70-110) mg/dL Calcium (8.4-10.2) mg/dL 04/16/22 04/16/22 Range/Units 07:07 07:07 RBC 2.94 L (4.30-5.90) m/uL Hgb 7.3 L (13.0-17.5) gm/dL Hct 25.4 L (39.0-53.0) % MCH 24.9 L (25.0-35.0) pg MCHC 28.8 L (31.0-37.0) g/dL RDW 19.3 H (11.5-15.5) % Lymphocytes # (1.0-4.8) k/uL Sodium 134 L (137-145) mmol/L Carbon Dioxide 14 L (22-30) mmol/L BUN 38 H (9-20) mg/dL Creatinine 2.29 H (0.66-1.25) mg/dL Glucose 133 H (74-99) mg/dL POC Glucose (mg/dL) (70-110) mg/dL Calcium 6.9 L (8.4-10.2) mg/dL Assessment and Plan Time with Patient: Less than 30
--- NOTE | 2022-04-16 14:58 | US ---
EXAMINATION TYPE: US kidneys/renal and bladder DATE OF EXAM: 04/16/2022 COMPARISON: NONE CLINICAL HISTORY: TARUN, retention, low urine output. low urine output EXAM MEASUREMENTS: Right Kidney: 10.5 x 5.2 x 5.1 cm Left Kidney: 10.9 x 4.5 x 3.9 cm Right Kidney: No hydronephrosis or masses seen Left Kidney: No hydronephrosis or masses seen Bladder: not full cathter in Bilateral Jets seen: No There is no evidence for hydronephrosis at this point in time. No nephrolithiasis is seen. No solid or cystic masses are identified. The urinary bladder is nondistended due to Bo catheter. There i s good cortical medullary differentiation. Renal cortex appears preserved. There is mild localized th inning of the renal cortex on the left.. IMPRESSION: 1. There is suggestion of mild thinning of the left renal cortex correlate for chronic medical renal disease. 2. No hydronephrosis or nephrolithiasis.
[2022-04-16] MEDS: SIMETHICONE 40 MG/0.6 ML DROPS 2,000 MG/30 ML BOTTLE PO SCH ×3 (15:46→21:49)
[2022-04-16 17:19] LABS: Glucose,Whole Blood 173 mg/dL (70-110)
[2022-04-16] MEDS: atenoloL 50 MG TAB PO SCH (21:49)
[2022-04-16] MEDS: INSULIN DETEMIR (LEVEMIR) 100 UNIT/ML SYR SQ SCH (21:51)
[2022-04-16 21:52] LABS: Glucose,Whole Blood 96 mg/dL (70-110)
[2022-04-17] MEDS: SODIUM CHLORIDE 0.9% 1,000 ML IV SCH ×2 (03:13→09:03)
[2022-04-17] MEDS: HYDROcodone/APAP 5-325MG 1 EACH TAB PO PRN ×2 (06:21→10:34)
[2022-04-17 07:04] LABS: Glucose,Whole Blood 103 mg/dL (70-110)
[2022-04-17] MEDS: INSULIN ASPART (NovoLOG) 100 UNIT/ML VIAL SQ SCH ×7 (07:41→20:37)
[2022-04-17] MEDS ORDERED: SODIUM CHLORIDE 0.9% 1,000 ML IV SCH (08:00)
[2022-04-17] MEDS: SIMETHICONE 40 MG/0.6 ML DROPS 2,000 MG/30 ML BOTTLE PO SCH ×4 (08:42→20:52)
[2022-04-17] MEDS: HEPARIN SODIUM,PORCINE/PF 5,000 UNIT/0.5 ML SYRINGE SQ SCH ×3 (08:42→23:52)
[2022-04-17] MEDS: ASPIRIN 81 MG PO SCH (08:44)
[2022-04-17] MEDS: ATORVASTATIN 40 MG TAB PO SCH (08:44)
[2022-04-17] MEDS: TAMSULOSIN 0.4 MG CAP.ER.24H PO SCH (08:44)
[2022-04-17] MEDS: FAMOTIDINE 20 MG/2 ML VIAL IV SCH (08:45)
[2022-04-17] MEDS: ISOSORBIDE MONONITRATE ER 30 MG TAB.ER.24H PO SCH ×2 (08:45→20:37)
[2022-04-17] MEDS: PANTOPRAZOLE 40 MG/10 ML VIAL IVP SCH (08:45)
[2022-04-17] MEDS: HYDROmorphone 1 MG/ML 1 ML SYRINGE IVP PRN ×4 (08:54→23:52)
[2022-04-17 09:05] LABS: African American GFR (CKD) 37.5 (60.0-200.0); Anion Gap 13.1 mmol/L (10.00-18.00); BUN/Creat Ratio 18.15 Ratio (12.00-20.00); Blood Urea Nitrogen 36.3 mg/dL (9.0-27.0); Calcium 6.7 mg/dL (8.7-10.3); Carbon Dioxide 13.9 mmol/L (20.0-27.5); Non-African American GFR(CKD) 32.4 (60.0-200.0); Potassium 4.7 mmol/L (3.5-5.5)
[2022-04-17] MEDS: SYMBICORT 80-4.5 MCG INHALER INHALATION PRN (09:14)
[2022-04-17 10:05] LABS: Basophils # (A) 0.01 X 10*3/uL (0.00-0.10); Basophils % (A) 0.1 %; Eosinophils # (A) 0 X 10*3/uL (0.04-0.35); Eosinophils % (A) 0 %; HCT 25.2 % (39.6-50.0); HGB 7.1 g/dL (13.0-17.0); Immature Grans, Automated 0.4 %; Lymphocytes # (A) 0.38 X 10*3/uL (0.90-5.00); Lymphocytes % (A) 4.8 %; MCH 24.3 pg (27.0-32.0); MCHC 28.2 g/dL (32.0-37.0); MCV 86.3 fL (80.0-97.0); Mean Platelet Volume 11.3 fL (9.5-12.2); Monocytes # (A) 0.82 X 10*3/uL (0.20-1.00); Monocytes % (A) 10.3 %; NRBC Per 100 WBC 0.3 /100 WBCS (0.0-0.0); Neutrophils # (A) 6.74 X 10*3/uL (1.80-7.70); Neutrophils % (A) 84.4 %; Platelet Count 197 X 10*3/uL (140-440); RBC 2.92 X 10*6/uL (4.40-5.60); RDW 20.5 % (11.5-14.5); WBC 7.98 X 10*3/uL (4.50-10.00)
[2022-04-17 10:06] LABS: Acanthocytes 2+; Rouleaux PRESENT
--- NOTE | 2022-04-17 10:56 | CDI ---
Documentation Clarification Form Date: 04/17/2022 10:10:42 AM From: Sarika Mchugh RN, CCDS Admit Date: 04/09/2022 8:32:00 PM Patient Name: Christ Resendiz Visit Number: [id number] Discharge Date: ATTENTION: The Clinical Documentation Specialists (CDI) and [facility] Coding Staff appreciate your assistance in clarifying documentation. Please respond to the clarification below the line at the bottom and electronically sign. The CDI & [facility] Coding staff will review the response and follow-up if needed. Please note: Queries are made part of the Legal Health Record. If you have any questions, please contact the author of this message via ITS. Dr. Hien Webber Postoperative urinary retention is documented in the progress notes starting 04/15/22 and patient had low anterior resection of sigmoid colon mass on 04/13/22. Additional clarification is requested regarding the relationship, if any, that exists between the diagnosis and the procedure. Patients Admitting Diagnosis: Sigmoid colon mass Post-Operative Diagnosis: Same History/Risk Factors: coronary artery disease, COPD, Diabetes Mellitus, GI Bleed, Former smoker Clinical Indicators: 72-year-old male complaints of shortness of breath found to have hemoglobin of 6.9 with fecal occult blood positive. 04/11 CT abdomen/pelvis showed a 2.5 cm mixed density mass lateral left kidney that contains mostly fat and is consistent with angiomyolimpoma and an enlarged prostate that measures 6.2 cm. 04/15 Urology consult: Urinary retention. BPH (benign prostatic hyperplasia Treatment: Flomax 0.4MG PO PC brkfst 04/15-04/17x3 then 125 Hr. 04/15-04/17 .9NS IV 1,000 Fluid bolus Check PVR, I/O Monitor serum creatinine daily What relationship, if any, exists between the diagnosis of postoperative urinary retention and the procedure? [ ] Postoperative urinary retention is related to patients co-morbid condition(s) of BPH (benign prostatic hyperplasia) & not a complication of the procedure [ ] Postoperative urinary retention is a complication of surgical procedure [ x ] Postoperative urinary retention is an expected outcome of the surgical procedure [ ] Other please specify ____ [ ] Unable to determine (Template Last Revised: April 2020) MTDD
--- NOTE | 2022-04-17 11:00 | XR ---
EXAMINATION TYPE: XR chest 2V DATE OF EXAM: 04/17/2022 COMPARISON: 10/01/2013 TECHNIQUE: PA and lateral views submitted. HISTORY: Hypoxia FINDINGS: Heart is enlarged and there is postoperative change with bilateral consolidation and small effusion. There is no pneumothorax. Mild interstitial prominence. Question chronic rib deformity posterior late rally on the left. There is free intraperitoneal air. IMPRESSION: 1. Large amount of free intraperitoneal air. Report called to the patient's nurse 04/27/2022 at 10:30 AM 2. Bilateral infiltrate and small effusion. Correlate for mild venous congestion.
[2022-04-17 11:18] LABS: Glucose,Whole Blood 94 mg/dL (70-110)
[2022-04-17] MEDS ORDERED: SODIUM BICARB 8.4% 50 ML SYR (1 MEQ/ML) IV STA (11:25)
[2022-04-17] MEDS ORDERED: FUROSEMIDE 10 MG/ML 4 ML VIAL IV STA (11:25)
--- NOTE | 2022-04-17 11:26 | P.NPCON ---
History of Present Illness - Reason for Consult acute renal failure - History of Present Illness Reason for consultation: Acute kidney injury History of present illness: Patient is a 72-year-old male seen in consultation for acute kidney injury. Patient denies any prior history of kidney disease. Patient's creatinine on 02/12/2022 was 1.35. Creatinine this admission was 1.72 and peaked at 2.86. It is down to 2.0 today. Patient presented to the hospital on 04/09/2022 due to shortness of breath and chest discomfort. Hemoglobin was 6.9 and he did receive blood transfusion. He was noted to have a sigmoid mass on colonoscopy and underwent low anterior resection on 04/13/2022. Blood pressure stable. Denies use of nonsteroidals. Patient does have history of diabetes. Also has history of coronary artery disease status post CABG as well as 3 cardiac stents placed in February 2022. He admits to abdominal discomfort. States he's having diarrhea. Patient received 2 L of normal saline yesterday and received normal saline at 1 75 mL an hour overnight. Rate was decreased to 1 25 mL an hour this morning. Vision has a Bo catheter for urinary retention. Nonoliguric. Does have edema in the lower extremities. Vital signs are stable. General: No acute distress. HEENT: Head exam is unremarkable. On nasal cannula. LUNGS: No audible rhonchi or wheezes. HEART: Rate and Rhythm are regular. ABDOMEN: Distention noted. Generalized tenderness present. EXTREMITITES: 1+ edema. Past Medical History Past Medical History: Coronary Artery Disease (CAD), Chest Pain / Angina, COPD, Diabetes Mellitus, Eye Disorder, GI Bleed, Hearing Disorder / Deafness, Myocardial Infarction ([place]), Osteoarthritis (OA) Additional Past Medical History / Comment(s): See Dr Everett's H&P. Recent Flu, resolved now. More frequent angina. PREVIOUS DETACHED RETINA. "Poor kidney function 11/30, better now." Hard of hearing. Last Myocardial Infarction Date:: 2013 History of Any Multi-Drug Resistant Organisms: None Reported Past Surgical History: Appendectomy, Coronary Bypass/CABG, Heart Catheterization With Stent Additional Past Surgical History / Comment(s): TRIPLE CABG X2 (1994 AND 2013). Past Anesthesia/Blood Transfusion Reactions: No Reported Reaction Date of Last Stent Placement:: unknown Past Psychological History: No Psychological Hx Reported Smoking Status: Former smoker Past Alcohol Use History: Rare Past Drug Use History: None Reported - Past Family History Brother(s) Family Medical History: Cancer Medications and Allergies Home Medications Medication Instructions Recorded Confirmed Type Isosorbide Mononitrate ER [Imdur] 30 mg PO BID-W/MEALS 09/20/13 04/09/22 History atenoloL [Tenormin] 50 mg PO HS 09/20/13 04/09/22 History Nitroglycerin Sl Tabs [Nitrostat] 0.4 mg SL Q5M PRN 09/22/13 04/09/22 History ALPRAZolam [Xanax] 0.25 mg PO HS 11/26/21 04/09/22 History Clopidogrel [Plavix] 75 mg PO DAILY 11/26/21 04/09/22 History Fluticasone Propion/Salmeterol 1 puff INHALATION RT-BID PRN 11/26/21 04/09/22 History [Advair 100-50 Diskus] Rosuvastatin [Crestor] 20 mg PO DAILY 11/26/21 04/09/22 History Omeprazole [PriLOSEC] 20 mg PO DAILY 01/21/22 04/09/22 History Aspirin EC [Ecotrin Low Dose] 81 mg PO DAILY 04/09/22 04/09/22 History Empagliflozin [Jardiance] 25 mg PO DAILY 04/09/22 04/09/22 History glipiZIDE [Glucotrol] 5 mg PO BID-W/MEALS 04/09/22 04/09/22 History metFORMIN HCL [Glucophage] 1,000 mg PO BID-W/MEALS 04/09/22 04/09/22 History Allergies Allergy/AdvReac Type Severity Reaction Status Date / Time No Known Allergies Allergy Verified 04/09/22 21:41 Physical Exam Vitals: Vital Signs Temp Pulse Resp BP Pulse Ox 04/17/22 06:49 97.9 F 72 20 118/67 98 04/17/22 02:07 97.7 F 80 20 102/61 98 04/16/22 19:45 17 04/16/22 18:58 98.1 F 82 17 131/68 98 04/16/22 17:28 80 95 04/16/22 17:26 143/69 04/16/22 17:23 58 L 16 128/77 04/16/22 17:16 98.1 F 58 L 18 134/58 98 04/16/22 11:59 97.9 F 67 16 121/62 96 Intake and Output 04/16/22 04/17/22 04/17/22 22:59 06:59 14:59 Intake Total 2200 Output Total 200 400 Balance -200 1800 Intake: Intake, IV Titration 2000 Amount Sodium Chloride 0.9% 1, 2000 000 ml @ 175 mls/hr IV . Q5H43M [facility] Rx#:[id number] Oral 200 Output: Urine 200 400 Other: Voiding Method Indwelling Catheter # Bowel Movements 1 Results - Lab Results Most recent lab results Calcium 6.7 mg/dL (8.7-10.3) L 04/17/22 04:47 04/17/22 04:47 04/17/22 04:47 Assessment and Plan Plan: Assessment: 1. Acute kidney injury secondary to ATN and urinary retention. Creatinine peaked at 2.86 this admission is 2.0 today. No hydronephrosis noted on kidney ultrasound. 2. GI bleed status post blood transfusion this admission. 3. 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 4. Volume overload. 5. Metabolic acidosis secondary to acute kidney injury and IV fluids. Also GI losses. 6. Diabetes mellitus. 7. Coronary disease status post CABG and cardiac stenting. 8. Urinary retention. Bo catheter placed. On Flomax. Urology following. Plan: Change IV fluids to sodium bicarb drip to be run at 50 mL an hour. 2 A sodium bicarbonate IV push now. Lasix 40 mg IV once now. Check urinalysis. Continue to monitor renal function and urine output. Avoid nephrotoxins. Free air noted on x-ray. Surgery notified. Monitor hemoglobin and transfuse as needed. Defer to surgery. Thank you for the consultation. I will continue to follow the patient with you during his hospital stay.
[2022-04-17] MEDS ORDERED: DEXTROSE 5% IN WATER 1,000 ML with SODIUM BICARB (1 MEQ/ML) 150 ML IV SCH (11:30)
[2022-04-17] MEDS: PIPERACILLIN-TAZOBACTAM 3.375 GM in SODIUM CHLORIDE 0.9% 100 ML IVPB SCH ×3 (11:31→20:06)
--- NOTE | 2022-04-17 12:45 | CT ---
EXAMINATION: CT ABDOMEN AND PELVIS WITHOUT IV CONTRAST DATE OF EXAMINATION: 04/17/2022. COMPARISON: 04/11/2022.. INDICATION: Free air seen on x-ray. PROCEDURE: Axial CT of the abdomen and pelvis was performed with sagittal and coronal reformatted i mages without contrast enhancement. The exam is limited because some types of pathology may not be ad equately demonstrated due to lack of contrast enhancement. CT dose lowering techniques were used, to include: automated exposure control, adjustment for patient size, and/or use of iterative reconstruct ion. FINDINGS: LOWER CHEST : There are moderate bilateral pleural effusions. There is compressive atelectasis of th e lower lobes bilaterally. There are no pleural effusions. ABDOMEN: Liver and Biliary system: Normal. Adrenal glands: Normal. 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 Ther e are no renal stones, ureteral stones or hydronephrosis. Spleen: Normal. Pancreas: Normal. Gallbladder: Normal. Lymph nodes, Peritoneum and mesentery: There is no mesenteric or retroperitoneal lymphadenopathy. Th ere is a small amount of ascites around the liver. Gastrointestinal tract: There is a moderate to large amount of free intraperitoneal air. There has b een recent interval surgery with surgical luis manuel within the midline and partial resection of the sig moid colon where there is a sigmoid colonic mass noted on the prior study. The free intraperitoneal a ir may be related to postsurgical changes and clinical correlation is recommended and close monitorin g. There is nonvisualization of the appendix. There is a large hiatal hernia. A rectal tube is also p resent. Aorta/IVC: There is severe vascular calcification throughout the abdominal aorta without evidence o f aneurysmal dilation. IVC normal. Abdominal wall: Surgical luis manuel are seen along the midline abdomen which are new in the interim. Th ere is moderate body wall edema also noted. PELVIS: Fluid: There is no free fluid in the pelvis. Lymph Nodes: There is no pelvic or inguinal lymphadenopathy.. Urinary bladder: There is a Bo catheter within a mostly collapsed bladder. BONES: There are no osseous destructive lesions.. ADDITIONAL SIGNIFICANT FINDINGS: Prostate is moderately enlarged. IMPRESSION: 1. Moderate to large amount of free intraperitoneal air may be related the patient's interval surgery and sigmoid colonic resection. Clinical correlation is recommended and close monitoring and clinical follow-up is recommended. The finding of free intraperitoneal air was reported on the chest x-ray pe rformed earlier today and report was called. 2. Moderate bilateral pleural effusions. 3. Small amount of ascites around the liver. 4. Body wall edema. 5. Large hiatal hernia.
[2022-04-17 13:20] LABS: Appearance,Urine Clear (Clear); Bacteria,Urine Rare /hpf; Bilirubin,Urine Negative (Negative); Blood,Urine Trace (Negative); Color,Urine Colorless; Glucose,Urine (UA) Negative (Negative); Ketones,Urine Negative (Negative); Leukocyte Esterase,Urine Negative (Negative); Mucus,Urine Rare /hpf; Nitrite,Urine Negative (Negative); Protein,Urine Trace (Negative); RBC,Urine 4 /hpf (0-5); Specific Gravity,Urine 1.006 (1.001-1.035); Squamous Epithelial Cell,Urine <1 /hpf (0-4); Urobilinogen,Urine <2.0 mg/dL (<2.0); WBC,Urine 1 /hpf (0-5)
--- NOTE | 2022-04-17 14:09 | P.PN ---
Subjective Progress Note Date: 04/17/22 CHIEF COMPLAINT: Colon mass HISTORY OF PRESENT ILLNESS: Patient is postop day #4 status post lower anterior resection for sigmoid colon mass. Pathology results pending. Patient reports increased abdominal pain and abdominal distention. He's also having drainage from the incision site. Afebrile. No tachycardia. BP stable. He does report shortness of breath. He is requiring 4 L of oxygen. WBC is 7.98 Hgb 7.1 platelets 197 sodium was 138 potassium 4.7 creatinine 2.0 urine output is still done on the lower side. Medicine has ordered a chest x-ray that showed a large amount of free intraperitoneal air. Bilateral infiltrate and small effusion. Correlate for mild venous congestion. Patient did receive a dose of IV Lasix. Due to the free air a computed tomography scan of abdomen and pelvis with rectal contrast ordered that did show moderate to large amount of free intraperitoneal air. There is also evidence of leak at the anastomotic site.. Computed tomography scan findings were reviewed with the radiologist. PHYSICAL EXAM: VITAL SIGNS: Reviewed. GENERAL: Well-developed in no acute distress. HEENT: No sclera icterus. Extraocular movements grossly intact. Moist buccal mucosa. Head is atraumatic, normocephalic. ABDOMEN: Distended. Tender at incision site. Foul-smelling dark purulent drainage noted NEUROLOGIC: Alert and oriented. Cranial nerves II through XII grossly intact. ASSESSMENT: 1. 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 Anastomotic leak 3. Anemia due to GI bleed from the colon mass 4. History of coronary disease with stents placed in February 2022 with prior CABG PLAN: -Patient scheduled for Exploratory laparotomy today with Dr. Carrera -Keep patient nothing by mouth -Start IV antibiotics -3 luis manuel removed from midline incision at the distal aspect. Culture obtained of drainage. -Agree with nephrology consult regarding acute kidney injury -Continue to hold Plavix -Continue pain management -Continue IV fluids per nephrology -GI prophylaxis Pepcid and DVT prophylaxis subcu heparin Physician Glove Operator note has been reviewed by physician. Signing provider agrees with the documented findings, assessment, and plan of care. Objective - Vital Signs Vital signs: Vital Signs Temp 97.9 F 04/17/22 06:49 Pulse 72 04/17/22 06:49 Resp 20 04/17/22 06:49 BP 118/67 03/09/23 06:49 Pulse Ox 98 04/17/22 06:49 FiO2 21 04/16/22 08:16 Intake & Output 04/16/22 04/17/22 04/17/22 18:59 06:59 18:59 Intake Total 2200 Output Total 200 400 Balance -200 1800 Weight 82.1 kg Intake: Intake, IV Titration 2000 Amount Sodium Chloride 0.9% 1, 2000 000 ml @ 175 mls/hr IV . Q5H43M [facility] Rx#:[id number] Oral 200 Output: Urine 200 400 Other: Voiding Method Indwelling Catheter Indwelling Catheter # Bowel Movements 1 - Labs CBC & Chem 7: 04/17/22 04:47 04/17/22 04:47 Labs: Abnormal Lab Results - Last 24 Hours (Table) 04/16/22 04/16/22 04/17/22 Range/Units 11:08 17:09 04:47 RBC 2.92 L (4.40-5.60) X 10*6/uL Hgb 7.1 L (13.0-17.0) g/dL Hct 25.2 L (39.6-50.0) % MCH 24.3 L (27.0-32.0) pg MCHC 28.2 L (32.0-37.0) g/dL RDW 20.5 H (11.5-14.5) % Absolute Nucleated RBC 0.02 H (0.00-0.00) X 10*3/uL Lymphocytes # 0.38 L (0.90-5.00) X 10*3/uL Eosinophils # 0 L (0.04-0.35) X 10*3/uL NRBC/100 WBC Diff 0.3 H (0.0-0.0) /100 WBCS Chloride (96-109) mmol/L Carbon Dioxide (20.0-27.5) mmol/L BUN (9.0-27.0) mg/dL Creatinine (0.6-1.5) mg/dL Est GFR (CKD-EPI)AfAm (60.0-200.0) Est GFR (CKD-EPI)NonAf (60.0-200.0) POC Glucose (mg/dL) 232 H 173 H (70-110) mg/dL Calcium (8.7-10.3) mg/dL 03/09/23 Range/Units 04:47 RBC (4.40-5.60) X 10*6/uL Hgb (13.0-17.0) g/dL Hct (39.6-50.0) % MCH (27.0-32.0) pg MCHC (32.0-37.0) g/dL RDW (11.5-14.5) % Absolute Nucleated RBC (0.00-0.00) X 10*3/uL Lymphocytes # (0.90-5.00) X 10*3/uL Eosinophils # (0.04-0.35) X 10*3/uL NRBC/100 WBC Diff (0.0-0.0) /100 WBCS Chloride 111 H (96-109) mmol/L Carbon Dioxide 13.9 L (20.0-27.5) mmol/L BUN 36.3 H (9.0-27.0) mg/dL Creatinine 2.0 H (0.6-1.5) mg/dL Est GFR (CKD-EPI)AfAm 37.5 L (60.0-200.0) Est GFR (CKD-EPI)NonAf 32.4 L (60.0-200.0) POC Glucose (mg/dL) (70-110) mg/dL Calcium 6.7 L (8.7-10.3) mg/dL
[2022-04-17] MEDS ORDERED: ALBUTEROL NEBULIZED 2.5 MG/3 ML INHALATION ONE (16:05)
[2022-04-17] MEDS ORDERED: IPRATROPIUM-ALBUTEROL 3 ML NEB INHALATION STA (16:15)
[2022-04-17] MEDS ORDERED: DEXTROSE 50% SYRINGE 50 ML IVP ONE (16:15)
[2022-04-17 16:17] LABS: Glucose,Whole Blood 79 mg/dL (70-110)
[2022-04-17] MEDS ORDERED: SODIUM CHLORIDE 0.9% 1,000 ML IV ONE ×3 (16:23→20:41)
[2022-04-17] MEDS ORDERED: FUROSEMIDE 10 MG/ML 2 ML VIAL ONE (16:47)
[2022-04-17] MEDS ORDERED: LIDOCAINE 2% INJ 20 MG/ML (2 ML VIAL) ONE (16:47)
[2022-04-17] MEDS ORDERED: ALBUMIN HUMAN 5% (25gm) 500 ML VIAL IVPB ONE (16:47)
[2022-04-17] MEDS ORDERED: ETOMIDATE 2 MG/ML 10 ML VIAL ONE (16:47)
[2022-04-17] MEDS ORDERED: SUCCINYLCHOLINE CHLORIDE 200 MG/10 ML VIAL IV ONE (16:47)
[2022-04-17] MEDS ORDERED: KETAMINE 10 MG/ML 20 ML VIAL ONE (16:47)
[2022-04-17] MEDS ORDERED: MIDAZOLAM 2 MG/2 ML VIAL ONE (16:47)
[2022-04-17] MEDS ORDERED: ROCURONIUM 10 MG/ML (5 ML VIAL) IV ONE (16:47)
--- NOTE | 2022-04-17 17:13 | P.PN ---
Subjective Progress Note Date: 04/17/22 Patient is a 72-year-old male with a known history of coronary artery disease status post CABG and recent stent placement in February 2022 initially presented to ER with complaints of shortness of breath and exertional dyspnea. Patient initially thought it was due to his heart condition and went to ER. Patient was found to have a hemoglobin of 6.9 and received 1 unit of PRBC. Patient was tested positive for FOBT. Patient is also taking aspirin and Plavix from recent stent placement. Patient also states that he has been taking Motrin for the last couple of weeks for his neuropathy pain in his feet. Denies any complaints of hematemesis dark-colored stools. Patient was transferred to [facility] for GI evaluation. On admission WBC 4.4 hemoglobin 7.5 MCV 79.7 and platelets 243 Sodium 143 potassium 4.2 chloride 101 bicarb is 19 BUN 25 and creatinine 1.72 Calcium 7.4 04/11/2022 Patient is currently resting in bed. Awake alert and oriented x3. No complaints of chest pain or shortness of breath. Otherwise underwent EGD and colonoscopy today. EGD showed moderate size hiatal hernia but no evidence of esophagitis or peptic ulcer disease. No evidence of GI bleed. Colonoscopy showed a) Near circumferential sigmoid colon mass at 28 cm from the anal verge status post multiple biopsies followed by tattooing with Aiyana ink b) 5 mm rectal polyp status post polypectomy General surgery was consulted and follow-up biopsy report.. Hemoglobin is stable at 8.6 otherwise. Denies any complaints of nausea or vomiting. Patient was started on clear liquid diet and follow H&H. 04/12/2022 Patient is currently resting in the bed. Awake alert and oriented x3. No complaints of chest pain or shortness of breath. No nausea vomiting abdominal pain or diarrhea. No cough or sputum production. Patient was seen by general surgery and is planning for or tomorrow. Antiplatelets on hold. Laboratory data reviewed. Patient is being current on iron supplementation Protonix IV push daily. 04/13/2022 Patient is currently lying in bed. Awake alert and oriented. Pain is fairly controlled. Status post low anterior resection of the sigmoid colon. Postoperative day 0 No fever no chills. Currently on room air. No nausea vomiting or diarrhea. Laboratory data showed WBC 5.3 hemoglobin 7.7 platelets 216 sodium 140 potassium 3.8 chloride 106 bicarb is 22 BUN 16 and creatinine 1.69. Calcium 7.5. General surgery and cardiology is on board. 04/14/2022 Patient is evaluated today sitting up in chair currently postoperative day #1 low anterior resection for sigmoid colon mass with pathology currently pending at this time. Patient is currently on clear liquid diet. Not passing gas yet and no BM. Reports controlled incisional abdominal pain. Wound vac is in place and intact. Patient is currently on D5 0.45 normal saline with potassium. Creatinine is up to 2.0 today. 04/15/2022 Patient is evaluated today on stepdown unit currently postoperative day #2 sigmoid colon resection. Aspirin and plavix remain on hold. Cardiology following closely. Blood pressure has improved to 139/71 today. Indwelling catheter removed yesterday afternoon, patient has issues with urinary retention overnight and for this reason normal saline was placed on hold. Patient has been unable to void and urinary strait cath was unable to produce urine. Bladder scan today showing 70 mls in urinary bladder. Creatinine is up to 2.86 today. Urology has been consulted for placement of urinary catheter and IV fluids have been resumed at an increased rate. Continues on clear liquid diet. Reports abdominal pain is controlled today. Blood glucose has been increased and insulin has been added. Remains afebrile, heart rate 72, blood pressure 120/68, 92% room air. 04/16/2022 Patient is evaluated on medical floor. he is postoperative day #3 sigmoid colon resection. Patient had urinary catheter placed by urology for urinary retention. Overnight has had 225 mLs of urine output, he is continued on normal saline at 125 mls/hr. Creatinine today has improved 2.29. Sodium up to 134. Renal ultrasound has been ordered and will repeat labs in AM. Patient had a bowel movement today he reports. He has some abdominal distention, states he is not passing much gas and feels bloated. Hemodynamically stable. 04/17/2022 Patient is evaluated on medical floor. Patients abdomen appears more distended with increased shortness of breath. He is postoperative day #4 low anterior resection of sigmoid colon secondary to mass. 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 He had chest xray completed with report called by radiology with large amount of free intraperitoneal air and bilateral infiltrate and small effusion. Correlate for mild venous congestion. Abdominal pelvis CT was ordered and results showing moderate to large amount of free intraperitoneal air may be related to patients interval surgery and colonic resection. Moderate bilateral pleural effusions, small amount of ascites around the liver, body wall edema, large hiatal hernia. Patient will undergo exploratory laporatomy today. Patient was noted to have purulent drainage from wound vac and also from midline incision which was cultured and patient was started on antibiotics. Blood cultures will be taken as well. Patient has been hydrated overnight with normal saline and creatinine has improved to 2.0, however his urine output remains marginal with 600 mls in the last 24 hours from indwelling urinary catheter. Renal ultrasound showing possible mild thinning of left renal cortex correlate for chronic medical renal disease with no hydronephrosis or nephrolisthiasis. Labs today showing white count 7.98, hgb 7.1, platelets 97, sodium 138, potassium 4.7, BUN 36.3, creatinine 2.0. Urinalysis negative. Patient is afebrile, heart rate 78, blood pressure 142/63, 100% on 3L nasal cannula. Review of Systems Constitutional: Denied any fatigue denied any fever. Cardio vascular: Denied any chest pain, palpitations Gastrointestinal: Denied any nausea, vomiting, reports abdominal pain, diarrhea, bloating. Pulmonary: Reports shortness of breath, no cough Neurologic Denied any new focal deficits All inpatient medications were reviewed and appropriate changes in these medications as dictated in the interval history and assessment and plan. PHYSICAL EXAMINATION: Patient is sitting up in chair, appears uncomfortable, he is leaning back . HEENT: Normocephalic. Neck is supple. Pupils reactive. Nostrils clear. Oral cavity is moist. Neck reveals no JVD, carotid bruits, or thyromegaly. CHEST EXAMINATION: Trachea is central. Symmetrical expansion. Lung escalante clear to auscultation and percussion. CARDIAC: Normal S1, S2 with no gallops. No murmurs ABDOMEN: Distended. ABD dressing in place. Bowel sounds diminished. Mild tenderness. Tympanic. No guarding or rigidity. No abdominal bruits. Extremities: reveal no edema. No clubbing or cyanosis Neurologically awake, alert, oriented x3 with well-coordinated movements. No focal deficits noted Skin: No rash or skin lesions. Psychiatric: Coperative. Nonsuicidal, Musculoskeletal: No joint swelling or deformity. Normal range of motion. Assessment and Plan Assessment Sigmoid colon mass status post low anterior resection postoperative day #4 with 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 Anastomotic leak Acute blood loss anemia from GI bleed secondary to sigmoid colon mass. Hemoglobin 6.9 on admission. Status post 1 unit of PRBC. Hgb currently 7.1 Shortness of breath and exertional dyspnea secondary to above Postoperative urinary retention with indwelling catheter placed Acute kidney injury prerenal with ATN Microcytic anemia with iron deficiency. Hyperglycemia Coronary artery disease with history of stent placement in February 2022 Coronary artery disease history of CABG GI and DVT prophylaxis with SCDs Full Code Plan: Patient is NPO for exploratory laporatomy Monitor H&H closely. Transfusion of hemoglobin less than 7. Plavix remains on hold Nephrology consultation in place Blood and wound cultures pending, patient has been started on IV zosyn Continue IV fluids Repeat labs in AM The impression and plan of care has been dictated by Carmita Johnson Nurse Practitioner as directed. Dr. Akbar MD I have performed a history and physical examination and medical decision making of this patient, discussed the same with the dictator, and agree with the dictators assessment and plan as written, documented as a scribe. Based on total visit time, I have performed more than 50% of this visit. Objective - Vital Signs Vital signs: Vital Signs Temp 97.9 F 04/17/22 06:49 Pulse 72 04/17/22 06:49 Resp 20 04/17/22 06:49 BP 118/67 04/17/22 06:49 Pulse Ox 98 04/17/22 06:49 FiO2 21 04/16/22 08:16 Intake & Output 04/16/22 04/17/22 04/17/22 18:59 06:59 18:59 Intake Total 2200 Output Total 200 400 Balance -200 1800 Weight 82.1 kg Intake: Intake, IV Titration 2000 Amount Sodium Chloride 0.9% 1, 2000 000 ml @ 175 mls/hr IV . Q5H43M [facility] Rx#:[id number] Oral 200 Output: Urine 200 400 Other: Voiding Method Indwelling Catheter Indwelling Catheter # Bowel Movements 1 - Labs CBC & Chem 7: 04/17/22 04:47 04/17/22 04:47 Labs: Abnormal Lab Results - Last 24 Hours (Table) 03/08/23 03/08/23 03/09/23 Range/Units 11:08 17:09 04:47 Chloride 111 H (96-109) mmol/L Carbon Dioxide 13.9 L (20.0-27.5) mmol/L BUN 36.3 H (9.0-27.0) mg/dL Creatinine 2.0 H (0.6-1.5) mg/dL Est GFR (CKD-EPI)AfAm 37.5 L (60.0-200.0) Est GFR (CKD-EPI)NonAf 32.4 L (60.0-200.0) POC Glucose (mg/dL) 232 H 173 H (70-110) mg/dL Calcium 6.7 L (8.7-10.3) mg/dL Assessment and Plan Time with Patient: Less than 30
--- NOTE | 2022-04-17 17:58 | P.OP ---
Date of Procedure: 04/17/22 Preoperative Diagnosis: Anastomotic leak Postoperative Diagnosis: Anastomotic leak secondary to ischemic colon Procedure(s) Performed: Exploratory laparotomy Washout of abdomen Takedown of anastomosis colostomy in left upper quadrant Anesthesia: ONEIDA Surgeon: Pierre Carrera Estimated Blood Loss (ml): 25 Pathology: other (Colonic anastomosis) Condition: critical Disposition: ICU Description of Procedure: The patient's placed on the operating table in the supine position. He received general anesthesia. His abdomen was prepped and draped usual fashion. The luis manuel have been removed. Betadine was placed in the wound. The fascial suture was then cut and the abdomen was opened. The Bookwalter tract with wound. There was some ascites within the pleural cavity. There was no feculent fluid. In the pelvis there appeared to be evidence of ischemia of the colorectal anastomosis. The proximal colon appeared to be ischemic. At this point using a contour stapler the rectum just below the anastomosis was transected. And then the left colon which was mobilized was brought up into the wound. The abdomen was then irrigated with 3 L of normal saline. The small bowel was run. The colon was then brought up in the left abdominal wall for colostomy site. The fascia was then closed with looped #1 PDS suture. The skin was packed open with Betadine Kerlix dressing. The colostomy was then matured with 3-0 Vicryl suture. Patient tolerated the procedure well well he was sent to the ICU intubated.
[2022-04-17] MEDS ORDERED: NALOXONE 0.4 MG/ML 1 ML VIAL IV PRN (18:44)
[2022-04-17 18:45] LABS: Glucose,Whole Blood 87 mg/dL (70-110)
[2022-04-17] MEDS ORDERED: ALBUTEROL NEBULIZED 2.5 MG/3 ML INHALATION PRN (18:50)
[2022-04-17] MEDS ORDERED: IPRATROPIUM 0.5 MG/2.5 ML NEBU INHALATION PRN (18:51)
[2022-04-17 19:10] LABS: ABG Base Excess -9.7 mmol/L; ABG HCO3 18 mmol/L (21-25); ABG Oxygen Saturation 99.6 % (94-97); ABG PCO2 41 mmHg (35-45); ABG PH 7.25 (7.35-7.45); ABG PO2 218 mmHg (83-108); ABG TCO2 19 mmol/L (19-24)
[2022-04-17 19:12] LABS: Allen Test Performed? no
[2022-04-17 19:29] LABS: Anisocytosis Slight; HCT 30.2 % (39.0-53.0); Hypochromasia Marked; MCH 25.2 pg (25.0-35.0); MCHC 29.5 g/dL (31.0-37.0); MCV 85.6 fL (80.0-100.0); Platelet Count 209 k/uL (150-450); Poikilocytosis Moderate; RBC 3.53 m/uL (4.30-5.90); RDW 18.5 % (11.5-15.5); WBC 4.1 k/uL (3.8-10.6)
--- NOTE | 2022-04-17 19:31 | XR ---
EXAMINATION TYPE: XR chest 1V portable DATE OF EXAM: 04/17/2022 COMPARISON: NONE HISTORY: Tube placement TECHNIQUE: Single view FINDINGS: Heart is enlarged. There is vascular pulmonary congestion. The endotracheal tube is 2.5 cm from the judah. There is a left jugular catheter with tip in the superior vena cava. There is nasoga stric tube in the stomach. There is blunting of the costophrenic angles bilaterally. There are chest leads. IMPRESSION: Congestive heart failure with bilateral pleural effusions. There is clearing of apparent large pneumoperitoneum compared to exam earlier today. Heart failure ap pears new compared to recent exam.
[2022-04-17 19:39] LABS: Potassium 4.2 mmol/L (3.5-5.1)
[2022-04-17 19:42] LABS: Calcium 6.1 mg/dL (8.4-10.2); Magnesium 0.9 mg/dL (1.6-2.3)
[2022-04-17 19:49] LABS: HGB 8.9 gm/dL (13.0-17.5)
[2022-04-17] MEDS ORDERED: CALCIUM GLUCONATE IN NACL 2 GM in SALINE 1 100ML.BAG IVPB ONE (19:55)
[2022-04-17] MEDS: MAGNESIUM SULFATE-D5W PMX 1 GM in DEXTROSE/WATER 1 100ML.BAG IVPB SCH ×3 (20:05→22:16)
[2022-04-17] MEDS: IPRATROPIUM 0.5 MG/2.5 ML NEBU INHALATION SCH (20:11)
[2022-04-17] MEDS: ALBUTEROL NEBULIZED 2.5 MG/3 ML INHALATION SCH (20:11)
[2022-04-17] MEDS: DEXTROSE 5% IN WATER 1,000 ML with SODIUM BICARB (1 MEQ/ML) 150 ML IV SCH (20:29)
[2022-04-17 20:37] LABS: Band Neutrophils % 9 %; Lymphocytes # (M) 0.45 k/uL (1.0-4.8); Metamyelocytes # (M) 0.04 k/uL (0); Metamyelocytes % 1 %; Monocytes # (M) 0.25 k/uL (0-1.0); Myelocytes # (M) 0.04 k/uL (0); Myelocytes % 1 %; Neutrophils % (M) 74 %; Nucleated Red Blood Cells 0 /100 WBC (0-0); Total Cells Counted 200
[2022-04-17] MEDS: atenoloL 50 MG TAB PO SCH (20:37)
[2022-04-17 20:39] LABS: Toxic Vacuolation Present
[2022-04-17] MEDS: CHLORHEXIDINE GLUCONATE 15 ML CUP MUCOUS MEM SCH (20:51)
[2022-04-17] MEDS: INSULIN DETEMIR (LEVEMIR) 100 UNIT/ML SYR SQ SCH (20:51)
[2022-04-17] MEDS: NOREPINEPHRINE 8 MG in SODIUM CHLORIDE 0.9% 250 ML IV SCH (21:29)
[2022-04-18] LABS: Glucose,Whole Blood 189 mg/dL (70-110)
[2022-04-18] MEDS: ALBUTEROL NEBULIZED 2.5 MG/3 ML INHALATION SCH ×6 (00:42→20:03)
[2022-04-18] MEDS: IPRATROPIUM 0.5 MG/2.5 ML NEBU INHALATION SCH ×6 (00:43→20:03)
[2022-04-18 01:16] LABS: Magnesium 1.5 mg/dL (1.6-2.3); Potassium 3.6 mmol/L (3.5-5.1)
[2022-04-18 01:19] LABS: Calcium 6.3 mg/dL (8.4-10.2)
[2022-04-18] MEDS ORDERED: CALCIUM GLUCONATE IN NACL 1 GM in SALINE 1 100ML.BAG IVPB ONE ×2 (01:30→09:12)
[2022-04-18] MEDS ORDERED: POTASSIUM CHLORIDE 20 MEQ in WATER FOR INJECTION 1 100ML.BAG IVPB STA (01:30)
[2022-04-18] MEDS: MAGNESIUM SULFATE-D5W PMX 1 GM in DEXTROSE/WATER 1 100ML.BAG IVPB SCH ×2 (01:48→02:53)
[2022-04-18] MEDS: HYDROmorphone 1 MG/ML 1 ML SYRINGE IVP PRN ×6 (02:28→23:29)
[2022-04-18 03:07] LABS: Glucose,Whole Blood 234 mg/dL (70-110)
[2022-04-18 03:17] LABS: Anisocytosis Slight; Basophils % (A) 0 %; Eosinophils % (A) 0 %; HCT 27.3 % (39.0-53.0); HGB 8.4 gm/dL (13.0-17.5); Hypochromasia Marked; Lymphocytes # (A) 0.6 k/uL (1.0-4.8); Lymphocytes % (A) 8 %; MCH 25.5 pg (25.0-35.0); MCHC 30.9 g/dL (31.0-37.0); MCV 82.5 fL (80.0-100.0); Mean Platelet Volume 8.8; Microcytosis Slight; Monocytes # (A) 0.4 k/uL (0-1.0); Monocytes % (A) 5 %; Neutrophils # (A) 6.4 k/uL (1.3-7.7); Neutrophils % (A) 85 %; Platelet Count 243 k/uL (150-450); Poikilocytosis Marked; RBC 3.31 m/uL (4.30-5.90); RDW 19.3 % (11.5-15.5); WBC 7.5 k/uL (3.8-10.6)
[2022-04-18 03:23] LABS: ABG Base Excess -5.1 mmol/L; ABG HCO3 20 mmol/L (21-25); ABG Oxygen Saturation 97.6 % (94-97); ABG PCO2 34 mmHg (35-45); ABG PH 7.38 (7.35-7.45); ABG PO2 120 mmHg (83-108); ABG TCO2 21 mmol/L (19-24); Allen Test Performed? Yes
[2022-04-18 03:47] LABS: Large Platelets Present; Polychromasia Present
[2022-04-18] MEDS: DEXTROSE 5% IN WATER 1,000 ML with SODIUM BICARB (1 MEQ/ML) 150 ML IV SCH ×2 (04:06→12:39)
[2022-04-18] MEDS: PIPERACILLIN-TAZOBACTAM 3.375 GM in SODIUM CHLORIDE 0.9% 100 ML IVPB SCH ×3 (04:07→18:48)
[2022-04-18] MEDS: NOREPINEPHRINE 8 MG in SODIUM CHLORIDE 0.9% 250 ML IV SCH ×3 (05:59→17:50)
[2022-04-18 06:04] LABS: Potassium 3.7 mmol/L (3.5-5.1)
[2022-04-18 06:05] LABS: Albumin 2.2 g/dL (3.5-5.0); Magnesium 1.8 mg/dL (1.6-2.3)
[2022-04-18 06:10] LABS: Glucose,Whole Blood 264 mg/dL (70-110)
[2022-04-18] MEDS: INSULIN ASPART (NovoLOG) 100 UNIT/ML VIAL SQ SCH ×5 (06:10→23:29)
[2022-04-18 06:26] LABS: Calcium 6.4 mg/dL (8.4-10.2)
--- NOTE | 2022-04-18 07:16 | XR ---
EXAMINATION TYPE: XR chest 1V portable DATE OF EXAM: 04/18/2022 COMPARISON: 04/17/2022 HISTORY: Tube placement FINDINGS: There are bilateral pleural effusions with cardiomegaly and bibasilar infiltrate. There is a diffuse interstitial pattern. ET and NG tubes stable. Appearing good position. Postoperative change and cent ral line noted. No sizable pneumothorax. IMPRESSION: 1. Persistent areas of consolidation pleural effusion correlate for CHF. Superimposed pneumonia not e xcluded.
[2022-04-18] MEDS: TAMSULOSIN 0.4 MG CAP.ER.24H PO SCH (07:49)
[2022-04-18] MEDS: HEPARIN SODIUM,PORCINE/PF 5,000 UNIT/0.5 ML SYRINGE SQ SCH ×3 (07:51→23:20)
[2022-04-18] MEDS: POTASSIUM CHLORIDE 20 MEQ in WATER FOR INJECTION 1 100ML.BAG IVPB SCH ×2 (07:52→09:55)
[2022-04-18] MEDS: CHLORHEXIDINE GLUCONATE 15 ML CUP MUCOUS MEM SCH ×2 (08:06→20:26)
[2022-04-18] MEDS: ASPIRIN 81 MG PO SCH (08:06)
[2022-04-18] MEDS: ISOSORBIDE MONONITRATE ER 30 MG TAB.ER.24H PO SCH (08:06)
[2022-04-18] MEDS: ATORVASTATIN 40 MG TAB PO SCH (08:06)
[2022-04-18] MEDS: FAMOTIDINE 20 MG/2 ML VIAL IV SCH (08:06)
[2022-04-18] MEDS: SYMBICORT 80-4.5 MCG INHALER INHALATION PRN (08:09)
[2022-04-18] MEDS ORDERED: FUROSEMIDE 10 MG/ML 4 ML VIAL IV STA (09:13)
--- NOTE | 2022-04-18 09:31 | P.CNPUL ---
History of Present Illness Consult date: 04/18/22 Chief complaint: Abdominal surgery, anastomotic leak at the level of the colon History of present illness: This is a 72-year-old male patient was brought into the intensive care unit after having his second surgery on 04/17/2022 which involved expiratory laparotomy, the patient had the surgery for an underlying anastomotic leak. The patient underwent a abdominal washout and takedown of anastomosis and colectomy and colostomy in the left upper quadrant. Estimated blood loss was around 25 mL. Postop, the patient was kept intubated on a mechanical ventilator. He was brought into the intensive care unit. He was quite hypotensive. His CVP was low on the eighth. He will received a total of saline boluses and following that he was started on pressors. Currently norepinephrine is running at 0.24 mcg/kg/m. The patient is intubated on a mechanical ventilator. Is currently on propofol at 45 mcg/kg/m and the patient is currently on assist control mode at a rate of 20, tidal volume of 450, FiO2 40% and a PEEP of 5. Note that overnight, the patient was found to be acidotic. He was given IV bicarb and following that he was started on a bicarbonate infusion which is still running at the rate of 150 mL an hour. Serum bicarb today is up to 20. Blood gas from today showed a pH of 7.38 with episodes of 34 and a pO2 of 120 and this was on FiO2 of 50%. WBC count is at 7.5 with a hemoglobin of 8.4 and a platelet count of 243. He did not fluid balance is positive for liters at least over the past 12 hours. The patient remains on IV Zosyn. He is adequately sedated. His colostomy site is light pink without evidence of any necrosis. The patient has no output in the colostomy bag. Surgical 1 site was inspected. The patient has retention sutures. There is leak of serosanguineous/bloody effusion from the one surface. The patient has a large midabdominal incision extending above and below the umbilicus all the way down to his pelvis. He does have scrotal edema. He does have +1 pitting edema. Orogastric tube is also in place. Ultrasound OG is only 200 over the past 8 hours. Note that this patient has history of coronary artery disease with previous bypass surgery and had a recent stent placement in February 2022. He came into the emergency department for shortness of breath. He was found to be intimate with a hemoglobin of 6.9. Given a unit of packed RBC. His fecal occult blood was positive. He underwent EGD and colonoscopy. 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 Based on that, the patient was taken to the operating room on 04/13/2022 and the patient underwent a low anterior resection on 04/13/2022. His course was complicated by development of abdominal distention and worsening shortness of breath. This occurred on postoperative day #4. A CAT scan of the abdomen was done yesterday that showed evidence of a moderate to large amount of free intraperitoneal air consistent with anastomotic leak. There was also moderate bilateral pleural effusions. There was small amount of ascites around the liver. There was large hiatal hernia and by the edema. Chest x-ray from today is showing cardiomegaly, bilateral pleural effusion, is about the pulmonary infiltrates, thoracotomy wires, triple-lumen catheter in his left IJ and adequate positioning of the orogastric tube. There is evidence also of bilateral pleural effusions. Review of Systems ROS unobtainable: due to endotracheal tube Past Medical History Past Medical History: Coronary Artery Disease (CAD), Chest Pain / Angina, COPD, Diabetes Mellitus, Eye Disorder, GI Bleed, Hearing Disorder / Deafness, Myocardial Infarction ([place]), Osteoarthritis (OA) Additional Past Medical History / Comment(s): See Dr Everett's H&P. Recent Flu, resolved now. More frequent angina. PREVIOUS DETACHED RETINA. "Poor kidney function 11/30, better now." Hard of hearing. Last Myocardial Infarction Date:: 2013 History of Any Multi-Drug Resistant Organisms: None Reported Past Surgical History: Appendectomy, Coronary Bypass/CABG, Heart Catheterization With Stent Additional Past Surgical History / Comment(s): TRIPLE CABG X2 (1994 AND 2013). Past Anesthesia/Blood Transfusion Reactions: No Reported Reaction Date of Last Stent Placement:: unknown Past Psychological History: No Psychological Hx Reported Smoking Status: Former smoker Past Alcohol Use History: Rare Past Drug Use History: None Reported - Past Family History Brother(s) Family Medical History: Cancer Medications and Allergies Home Medications Medication Instructions Recorded Confirmed Type Isosorbide Mononitrate ER [Imdur] 30 mg PO BID-W/MEALS 09/20/13 04/09/22 History atenoloL [Tenormin] 50 mg PO HS 09/20/13 04/09/22 History Nitroglycerin Sl Tabs [Nitrostat] 0.4 mg SL Q5M PRN 09/22/13 04/09/22 History ALPRAZolam [Xanax] 0.25 mg PO HS 11/26/21 04/09/22 History Clopidogrel [Plavix] 75 mg PO DAILY 11/26/21 04/09/22 History Fluticasone Propion/Salmeterol 1 puff INHALATION RT-BID PRN 11/26/21 04/09/22 History [Advair 100-50 Diskus] Rosuvastatin [Crestor] 20 mg PO DAILY 11/26/21 04/09/22 History Omeprazole [PriLOSEC] 20 mg PO DAILY 01/21/22 04/09/22 History Aspirin EC [Ecotrin Low Dose] 81 mg PO DAILY 04/09/22 04/09/22 History Empagliflozin [Jardiance] 25 mg PO DAILY 04/09/22 04/09/22 History glipiZIDE [Glucotrol] 5 mg PO BID-W/MEALS 04/09/22 04/09/22 History metFORMIN HCL [Glucophage] 1,000 mg PO BID-W/MEALS 04/09/22 04/09/22 History Allergies Allergy/AdvReac Type Severity Reaction Status Date / Time No Known Allergies Allergy Verified 04/09/22 21:41 Physical Exam Vitals: Vital Signs Temp Pulse Pulse Resp BP BP Pulse Ox 04/18/22 09:00 82 19 99 04/18/22 08:52 94 L 04/18/22 08:45 73 20 97 04/18/22 08:30 71 12 100 04/18/22 08:22 71 23 04/18/22 08:15 66 20 100 04/18/22 08:09 71 21 04/18/22 08:01 04/18/22 08:00 99.8 F H 80 19 99 04/18/22 07:45 80 17 100 04/18/22 07:30 81 20 100 04/18/22 07:15 81 18 100 04/18/22 07:00 81 22 99 04/18/22 06:45 71 18 100 04/18/22 06:30 71 20 99 04/18/22 06:15 72 19 98 04/18/22 06:00 71 16 100 04/18/22 05:45 89 17 100 04/18/22 05:30 89 21 100 04/18/22 05:15 88 18 100 04/18/22 05:00 87 21 100 04/18/22 04:45 88 22 100 04/18/22 04:30 88 18 100 04/18/22 04:15 88 22 98 04/18/22 04:00 99.1 F 87 17 100 04/18/22 03:45 86 22 100 04/18/22 03:42 86 04/18/22 03:30 87 20 100 04/18/22 03:29 86 04/18/22 03:24 04/18/22 03:15 87 20 100 04/18/22 03:00 66 20 100 04/18/22 02:45 67 25 H 100 04/18/22 02:32 67 19 100 04/18/22 02:16 66 27 H 100 04/18/22 02:00 66 18 100 04/18/22 01:45 65 18 100 04/18/22 01:30 65 19 100 04/18/22 01:15 87 18 100 04/18/22 01:00 87 20 100 04/18/22 00:55 85 04/18/22 00:45 86 20 100 04/18/22 00:44 86 04/18/22 00:40 04/18/22 00:30 86 20 100 04/18/22 00:15 86 18 100 04/18/22 00:00 98.6 F 86 18 100 04/17/22 23:45 87 23 100 04/17/22 23:30 85 19 100 04/17/22 23:15 86 18 100 04/17/22 23:07 86 23 100 04/17/22 23:00 87 18 100 04/17/22 22:45 66 23 100 04/17/22 22:30 66 20 100 04/17/22 22:15 67 19 100 04/17/22 22:00 68 20 100 04/17/22 21:45 68 22 100 04/17/22 21:30 70 23 100 04/17/22 21:15 70 21 100 04/17/22 21:00 69 20 100 04/17/22 20:45 72 27 H 98 04/17/22 20:33 71 04/17/22 20:30 72 20 100 04/17/22 20:19 73 04/17/22 20:15 72 21 99 04/17/22 20:09 04/17/22 20:00 100.2 F H 73 20 127/66 98 04/17/22 19:54 04/17/22 19:45 74 16 127/66 100 04/17/22 19:30 76 16 127/66 100 04/17/22 19:15 76 15 127/66 04/17/22 19:09 04/17/22 19:00 98.4 F 80 14 135/65 04/17/22 18:50 14 04/17/22 18:43 98 04/17/22 16:22 78 04/17/22 15:53 98.5 F 80 22 142/63 100 04/17/22 14:25 97.4 F L 74 20 130/72 97 FiO2 04/18/22 09:00 40 04/18/22 08:52 40 04/18/22 08:45 40 04/18/22 08:30 40 04/18/22 08:22 04/18/22 08:15 40 04/18/22 08:09 04/18/22 08:01 40 04/18/22 08:00 40 04/18/22 07:45 40 04/18/22 07:30 40 04/18/22 07:15 40 04/18/22 07:00 04/18/22 06:45 04/18/22 06:30 04/18/22 06:15 04/18/22 06:00 04/18/22 05:45 04/18/22 05:30 04/18/22 05:15 04/18/22 05:00 04/18/22 04:45 04/18/22 04:30 04/18/22 04:15 04/18/22 04:00 40 04/18/22 03:45 04/18/22 03:42 04/18/22 03:30 04/18/22 03:29 04/18/22 03:24 40 04/18/22 03:15 04/18/22 03:00 04/18/22 02:45 04/18/22 02:32 04/18/22 02:16 04/18/22 02:00 04/18/22 01:45 04/18/22 01:30 04/18/22 01:15 04/18/22 01:00 04/18/22 00:55 04/18/22 00:45 04/18/22 00:44 04/18/22 00:40 50 04/18/22 00:30 04/18/22 00:15 04/18/22 00:00 50 04/17/22 23:45 04/17/22 23:30 04/17/22 23:15 04/17/22 23:07 04/17/22 23:00 04/17/22 22:45 04/17/22 22:30 04/17/22 22:15 04/17/22 22:00 04/17/22 21:45 04/17/22 21:30 04/17/22 21:15 04/17/22 21:00 04/17/22 20:45 04/17/22 20:33 04/17/22 20:30 04/17/22 20:19 04/17/22 20:15 04/17/22 20:09 50 04/17/22 20:00 50 04/17/22 19:54 50 04/17/22 19:45 04/17/22 19:30 04/17/22 19:15 04/17/22 19:09 100 04/17/22 19:00 100 04/17/22 18:50 04/17/22 18:43 100 04/17/22 16:22 04/17/22 15:53 04/17/22 14:25 Intake and Output 04/17/22 04/18/22 04/18/22 22:59 06:59 14:59 Intake Total 3541.417 2145.445 539.066 Output Total 1475 1390 300 Balance 2066.417 755.445 239.066 Intake: IV 1312 48 18 ART 6 24 9 CVP 6 24 9 Intake, IV Titration 6745.155 1145.445 521.066 Amount Calcium Gluconate in NaCl 100 2 gm In Saline 1 100ml. bag @ 50 mls/hr IVPB ONCE ONE Rx#:[id number] Dextrose 5% in Water 1, 450 1200 450 000 ml @ 150 mls/hr IV . Q7H40M [facility] with Sodium Bicarb (1 Meq/ml) 150 ml Rx#:[id number] Magnesium Sulfate-D5w Pmx 300 100 1 gm In Dextrose/Water 1 100ml.bag @ 100 mls/hr IVPB Q1H [facility] Rx#: [id number] Magnesium Sulfate-D5w Pmx 100 1 gm In Dextrose/Water 1 100ml.bag @ 100 mls/hr IVPB Q1H [facility] Rx#: [id number] Norepinephrine 8 mg In 16.257 215.181 71.066 Sodium Chloride 0.9% 250 ml @ 0.03 MCG/KG/MIN 4. 766 mls/hr IV .Q24H [facility] Rx#:[id number] Piperacillin-Tazobactam 3 100 100 .375 gm In Sodium Chloride 0.9% 100 ml @ 25 mls/hr IVPB Q8HR [facility] Rx# :[id number] Potassium Chloride 20 meq 100 In Water For Injection 1 100ml.bag @ 50 mls/hr IVPB ONCE STA Rx#: [id number] Sodium Chloride 0.9% 1, 1000 000 ml @ 999 mls/hr IV . Q1H1M [facility] Rx#:[id number] propofoL 1,000 mg In 53.160 182.264 Empty Bag 1 bag @ 15 MCG/ KG/MIN 7.389 mls/hr IV . [id number] [facility] Rx#:[id number] Oral 0 0 Blood Product 310 Rc As-1 Unit 310 [id number] Output: Gastric Drainage 200 Urine 1425 1190 300 Estimated Blood Loss 50 Other: Voiding Method Indwelling Catheter Indwelling Catheter Indwelling Catheter # Bowel Movements 0 Weight 94 kg ABP, PAP, CO, CI - Last 8 Hours Arterial Blood Pressure 94/39 Arterial Blood Pressure 89/39 Arterial Blood Pressure 93/45 Arterial Blood Pressure 87/37 Arterial Blood Pressure 106/45 Arterial Blood Pressure 93/39 Arterial Blood Pressure 94/40 Arterial Blood Pressure 95/41 Arterial Blood Pressure 96/41 Arterial Blood Pressure 97/39 Arterial Blood Pressure 96/45 Arterial Blood Pressure 99/42 Arterial Blood Pressure 108/44 Arterial Blood Pressure 107/44 Arterial Blood Pressure 108/45 Arterial Blood Pressure 101/43 Arterial Blood Pressure 99/41 Arterial Blood Pressure 105/44 Arterial Blood Pressure 103/44 Arterial Blood Pressure 128/59 Arterial Blood Pressure 103/44 Arterial Blood Pressure 103/45 Arterial Blood Pressure 106/46 Arterial Blood Pressure 102/46 Arterial Blood Pressure 95/40 Arterial Blood Pressure 92/40 Arterial Blood Pressure 100/42 Arterial Blood Pressure 99/41 Arterial Blood Pressure 92/38 Arterial Blood Pressure 86/34 Arterial Blood Pressure 92/37 Gen. appearance the patient is calm comfortable, sedated on propofol cigarettes a mechanical ventilator. The patient has an orogastric and orotracheal tube are both of them are in place. Head exam was generally normal. There was no scleral icterus or corneal arcus. Mucous membranes were moist. Neck was supple and without jugular venous distension, thyromegaly, or carotid bruits. Carotids were easily palpable bilaterally. There was no adenopathy. The patient has a left IJ triple-lumen catheter in place. Lungs sounds are diminished bilaterally otherwise the breath sounds are equal and symmetrical and the patient is a thoracotomy scar over the anterior chest Cardiac exam revealed the PMI to be normally situated and sized. The rhythm was regular and no extrasystoles were noted during several minutes of auscultation. The first and second heart sounds were normal and physiologic splitting of the second heart sound was noted. There were no murmurs, rubs, clicks, or gallops. Abdomen shows a colostomy in the left upper quadrant. The colon tissue is pink and viable. No output yet. The patient has a open midabdominal incision with serosanguineous/bloody fluid seeping from the wound surface. Retention sutures are in place. No direct tenderness. No rebound tenderness. Absent bowel sounds. Patient has scrotal edema. Extremities revealed +1 pitting edema, no cyanosis or clubbing Neurological sedated Results - Laboratory Findings CBC and BMP: 04/18/22 03:00 04/18/22 05:44 ABG ABG pH 7.38 (7.35-7.45) 04/18/22 03:20 ABG pCO2 34 mmHg (35-45) L 04/18/22 03:20 ABG pO2 120 mmHg (83-108) H 04/18/22 03:20 ABG O2 Saturation 97.6 % (94-97) H 04/18/22 03:20 Abnormal lab findings: Abnormal Labs 04/09/22 04/10/22 04/10/22 21:10 03:45 03:45 WBC RBC 3.20 L 3.04 L Hgb 7.7 L 7.5 L Hct 25.5 L 24.2 L MCV 79.4 L 79.7 L MCH 24.0 L 24.5 L MCHC 30.1 L 30.8 L RDW 16.4 H 16.3 H Absolute Nucleated RBC Neutrophils # Lymphocytes # 0.9 L Lymphocytes # (Manual) Eosinophils # Metamyelocytes # (Man) Myelocytes # (Manual) NRBC/100 WBC Diff ABG pH ABG pCO2 ABG pO2 ABG HCO3 ABG O2 Saturation Sodium Chloride Carbon Dioxide BUN Creatinine Est GFR (CKD-EPI)AfAm Est GFR (CKD-EPI)NonAf Glucose POC Glucose (mg/dL) Calcium Ionized Calcium Sridevi Magnesium Iron TIBC % Saturation Ferritin Albumin HDL Cholesterol 26.70 L Urine Protein Urine Blood Urine Bacteria Urine Mucus Crossmatch 04/10/22 04/10/22 04/11/22 08:50 20:10 08:18 WBC RBC 3.54 L Hgb 8.6 L Hct 28.8 L MCV MCH 24.2 L MCHC 29.8 L RDW 16.5 H Absolute Nucleated RBC Neutrophils # Lymphocytes # Lymphocytes # (Manual) Eosinophils # Metamyelocytes # (Man) Myelocytes # (Manual) NRBC/100 WBC Diff ABG pH ABG pCO2 ABG pO2 ABG HCO3 ABG O2 Saturation Sodium Chloride 111 H Carbon Dioxide 19 L BUN 25 H Creatinine 1.72 H Est GFR (CKD-EPI)AfAm Est GFR (CKD-EPI)NonAf Glucose POC Glucose (mg/dL) 150 H Calcium 7.4 L Ionized Calcium Sridevi Magnesium Iron 18 L TIBC 494 H % Saturation 3.54 L Ferritin 8.9 L Albumin HDL Cholesterol Urine Protein Urine Blood Urine Bacteria Urine Mucus Crossmatch 04/11/22 04/12/22 04/12/22 08:18 11:45 16:28 WBC RBC Hgb Hct MCV MCH MCHC RDW Absolute Nucleated RBC Neutrophils # Lymphocytes # Lymphocytes # (Manual) Eosinophils # Metamyelocytes # (Man) Myelocytes # (Manual) NRBC/100 WBC Diff ABG pH ABG pCO2 ABG pO2 ABG HCO3 ABG O2 Saturation Sodium Chloride Carbon Dioxide 20 L BUN Creatinine 1.64 H Est GFR (CKD-EPI)AfAm Est GFR (CKD-EPI)NonAf Glucose 131 H POC Glucose (mg/dL) 142 H 118 H Calcium 7.9 L Ionized Calcium Sridevi Magnesium Iron TIBC % Saturation Ferritin Albumin HDL Cholesterol Urine Protein Urine Blood Urine Bacteria Urine Mucus Crossmatch 04/12/22 04/13/22 04/13/22 20:30 08:19 08:19 WBC RBC 3.18 L Hgb 7.7 L Hct 26.1 L MCV MCH 24.3 L MCHC 29.5 L RDW 17.0 H Absolute Nucleated RBC Neutrophils # Lymphocytes # Lymphocytes # (Manual) 0.80 L Eosinophils # Metamyelocytes # (Man) Myelocytes # (Manual) NRBC/100 WBC Diff ABG pH ABG pCO2 ABG pO2 ABG HCO3 ABG O2 Saturation Sodium Chloride Carbon Dioxide BUN Creatinine 1.69 H Est GFR (CKD-EPI)AfAm Est GFR (CKD-EPI)NonAf Glucose 107 H POC Glucose (mg/dL) 138 H Calcium 7.5 L Ionized Calcium Sridevi Magnesium Iron TIBC % Saturation Ferritin Albumin HDL Cholesterol Urine Protein Urine Blood Urine Bacteria Urine Mucus Crossmatch 04/13/22 04/13/22 04/13/22 10:33 13:50 15:15 WBC RBC 3.48 L Hgb 8.3 L Hct 29.0 L MCV MCH 23.7 L MCHC 28.5 L RDW 17.3 H Absolute Nucleated RBC Neutrophils # 9.1 H Lymphocytes # 0.5 L Lymphocytes # (Manual) Eosinophils # Metamyelocytes # (Man) Myelocytes # (Manual) NRBC/100 WBC Diff ABG pH ABG pCO2 ABG pO2 ABG HCO3 ABG O2 Saturation Sodium Chloride Carbon Dioxide BUN Creatinine Est GFR (CKD-EPI)AfAm Est GFR (CKD-EPI)NonAf Glucose POC Glucose (mg/dL) 114 H 177 H Calcium Ionized Calcium Sridevi Magnesium Iron TIBC % Saturation Ferritin Albumin HDL Cholesterol Urine Protein Urine Blood Urine Bacteria Urine Mucus Crossmatch 04/13/22 04/13/22 04/13/22 15:15 16:42 20:03 WBC RBC Hgb Hct MCV MCH MCHC RDW Absolute Nucleated RBC Neutrophils # Lymphocytes # Lymphocytes # (Manual) Eosinophils # Metamyelocytes # (Man) Myelocytes # (Manual) NRBC/100 WBC Diff ABG pH ABG pCO2 ABG pO2 ABG HCO3 ABG O2 Saturation Sodium Chloride Carbon Dioxide 19 L BUN Creatinine 1.53 H Est GFR (CKD-EPI)AfAm Est GFR (CKD-EPI)NonAf Glucose 190 H POC Glucose (mg/dL) 210 H 294 H Calcium 7.5 L Ionized Calcium Sridevi Magnesium Iron TIBC % Saturation Ferritin Albumin HDL Cholesterol Urine Protein Urine Blood Urine Bacteria Urine Mucus Crossmatch 04/14/22 04/14/22 04/14/22 05:31 05:36 05:36 WBC 13.9 H RBC 3.19 L Hgb 7.6 L Hct 26.1 L MCV MCH 23.8 L MCHC 29.0 L RDW 17.9 H Absolute Nucleated RBC Neutrophils # 11.8 H Lymphocytes # Lymphocytes # (Manual) Eosinophils # Metamyelocytes # (Man) Myelocytes # (Manual) NRBC/100 WBC Diff ABG pH ABG pCO2 ABG pO2 ABG HCO3 ABG O2 Saturation Sodium 136 L Chloride Carbon Dioxide 18 L BUN Creatinine 2.00 H Est GFR (CKD-EPI)AfAm Est GFR (CKD-EPI)NonAf Glucose 135 H POC Glucose (mg/dL) 174 H Calcium 7.3 L Ionized Calcium Sridevi Magnesium Iron TIBC % Saturation Ferritin Albumin HDL Cholesterol Urine Protein Urine Blood Urine Bacteria Urine Mucus Crossmatch 04/14/22 04/14/22 04/14/22 11:39 16:38 20:21 WBC RBC Hgb Hct MCV MCH MCHC RDW Absolute Nucleated RBC Neutrophils # Lymphocytes # Lymphocytes # (Manual) Eosinophils # Metamyelocytes # (Man) Myelocytes # (Manual) NRBC/100 WBC Diff ABG pH ABG pCO2 ABG pO2 ABG HCO3 ABG O2 Saturation Sodium Chloride Carbon Dioxide BUN Creatinine Est GFR (CKD-EPI)AfAm Est GFR (CKD-EPI)NonAf Glucose POC Glucose (mg/dL) 250 H 231 H 244 H Calcium Ionized Calcium Sridevi Magnesium Iron TIBC % Saturation Ferritin Albumin HDL Cholesterol Urine Protein Urine Blood Urine Bacteria Urine Mucus Crossmatch 04/15/22 04/15/22 04/15/22 06:36 10:51 10:51 WBC RBC 3.33 L Hgb 7.9 L Hct 27.4 L MCV MCH 23.6 L MCHC 28.7 L RDW 18.9 H Absolute Nucleated RBC Neutrophils # Lymphocytes # 0.5 L Lymphocytes # (Manual) Eosinophils # Metamyelocytes # (Man) Myelocytes # (Manual) NRBC/100 WBC Diff ABG pH ABG pCO2 ABG pO2 ABG HCO3 ABG O2 Saturation Sodium 133 L Chloride Carbon Dioxide 19 L BUN 32 H Creatinine 2.86 H Est GFR (CKD-EPI)AfAm Est GFR (CKD-EPI)NonAf Glucose 241 H POC Glucose (mg/dL) 275 H Calcium 7.3 L Ionized Calcium Sridevi Magnesium Iron TIBC % Saturation Ferritin Albumin HDL Cholesterol Urine Protein Urine Blood Urine Bacteria Urine Mucus Crossmatch 04/15/22 04/15/22 04/15/22 12:05 16:47 20:01 WBC RBC Hgb Hct MCV MCH MCHC RDW Absolute Nucleated RBC Neutrophils # Lymphocytes # Lymphocytes # (Manual) Eosinophils # Metamyelocytes # (Man) Myelocytes # (Manual) NRBC/100 WBC Diff ABG pH ABG pCO2 ABG pO2 ABG HCO3 ABG O2 Saturation Sodium Chloride Carbon Dioxide BUN Creatinine Est GFR (CKD-EPI)AfAm Est GFR (CKD-EPI)NonAf Glucose POC Glucose (mg/dL) 268 H 221 H 176 H Calcium Ionized Calcium Sridevi Magnesium Iron TIBC % Saturation Ferritin Albumin HDL Cholesterol Urine Protein Urine Blood Urine Bacteria Urine Mucus Crossmatch 04/16/22 04/16/22 04/16/22 06:56 07:07 07:07 WBC RBC 2.94 L Hgb 7.3 L Hct 25.4 L MCV MCH 24.9 L MCHC 28.8 L RDW 19.3 H Absolute Nucleated RBC Neutrophils # Lymphocytes # Lymphocytes # (Manual) Eosinophils # Metamyelocytes # (Man) Myelocytes # (Manual) NRBC/100 WBC Diff ABG pH ABG pCO2 ABG pO2 ABG HCO3 ABG O2 Saturation Sodium 134 L Chloride Carbon Dioxide 14 L BUN 38 H Creatinine 2.29 H Est GFR (CKD-EPI)AfAm Est GFR (CKD-EPI)NonAf Glucose 133 H POC Glucose (mg/dL) 139 H Calcium 6.9 L Ionized Calcium Sridevi Magnesium Iron TIBC % Saturation Ferritin Albumin HDL Cholesterol Urine Protein Urine Blood Urine Bacteria Urine Mucus Crossmatch 04/16/22 04/16/22 04/17/22 11:08 17:09 04:47 WBC RBC 2.92 L Hgb 7.1 L Hct 25.2 L MCV MCH 24.3 L MCHC 28.2 L RDW 20.5 H Absolute Nucleated RBC 0.02 H Neutrophils # Lymphocytes # 0.38 L Lymphocytes # (Manual) Eosinophils # 0 L Metamyelocytes # (Man) Myelocytes # (Manual) NRBC/100 WBC Diff 0.3 H ABG pH ABG pCO2 ABG pO2 ABG HCO3 ABG O2 Saturation Sodium Chloride Carbon Dioxide BUN Creatinine Est GFR (CKD-EPI)AfAm Est GFR (CKD-EPI)NonAf Glucose POC Glucose (mg/dL) 232 H 173 H Calcium Ionized Calcium Sridevi Magnesium Iron TIBC % Saturation Ferritin Albumin HDL Cholesterol Urine Protein Urine Blood Urine Bacteria Urine Mucus Crossmatch 04/17/22 04/17/22 04/17/22 04:47 12:40 15:17 WBC RBC Hgb Hct MCV MCH MCHC RDW Absolute Nucleated RBC Neutrophils # Lymphocytes # Lymphocytes # (Manual) Eosinophils # Metamyelocytes # (Man) Myelocytes # (Manual) NRBC/100 WBC Diff ABG pH ABG pCO2 ABG pO2 ABG HCO3 ABG O2 Saturation Sodium Chloride 111 H Carbon Dioxide 13.9 L BUN 36.3 H Creatinine 2.0 H Est GFR (CKD-EPI)AfAm 37.5 L Est GFR (CKD-EPI)NonAf 32.4 L Glucose POC Glucose (mg/dL) Calcium 6.7 L Ionized Calcium Sridevi Magnesium Iron TIBC % Saturation Ferritin Albumin HDL Cholesterol Urine Protein Trace H Urine Blood Trace H Urine Bacteria Rare H Urine Mucus Rare H Crossmatch See Detail 04/17/22 04/17/22 04/17/22 18:57 18:57 19:01 WBC RBC 3.53 L Hgb 8.9 L D Hct 30.2 L MCV MCH MCHC 29.5 L RDW 18.5 H Absolute Nucleated RBC Neutrophils # Lymphocytes # Lymphocytes # (Manual) 0.45 L Eosinophils # Metamyelocytes # (Man) 0.04 H Myelocytes # (Manual) 0.04 H NRBC/100 WBC Diff ABG pH 7.25 L ABG pCO2 ABG pO2 218 H ABG HCO3 18 L ABG O2 Saturation 99.6 H Sodium Chloride 110 H Carbon Dioxide 18 L BUN 37 H Creatinine 1.71 H Est GFR (CKD-EPI)AfAm Est GFR (CKD-EPI)NonAf Glucose 100 H POC Glucose (mg/dL) Calcium 6.1 L* Ionized Calcium Sridevi Magnesium 0.9 L* Iron TIBC % Saturation Ferritin Albumin HDL Cholesterol Urine Protein Urine Blood Urine Bacteria Urine Mucus Crossmatch 04/17/22 04/18/22 04/18/22 23:58 00:58 03:00 WBC RBC 3.31 L Hgb 8.4 L Hct 27.3 L MCV MCH MCHC 30.9 L RDW 19.3 H Absolute Nucleated RBC Neutrophils # Lymphocytes # 0.6 L Lymphocytes # (Manual) Eosinophils # Metamyelocytes # (Man) Myelocytes # (Manual) NRBC/100 WBC Diff ABG pH ABG pCO2 ABG pO2 ABG HCO3 ABG O2 Saturation Sodium 135 L Chloride Carbon Dioxide 18 L BUN 34 H Creatinine 1.70 H Est GFR (CKD-EPI)AfAm Est GFR (CKD-EPI)NonAf Glucose 180 H POC Glucose (mg/dL) 189 H Calcium 6.3 L* Ionized Calcium Sridevi Magnesium 1.5 L Iron TIBC % Saturation Ferritin Albumin HDL Cholesterol Urine Protein Urine Blood Urine Bacteria Urine Mucus Crossmatch 04/18/22 04/18/22 04/18/22 03:06 03:20 05:44 WBC RBC Hgb Hct MCV MCH MCHC RDW Absolute Nucleated RBC Neutrophils # Lymphocytes # Lymphocytes # (Manual) Eosinophils # Metamyelocytes # (Man) Myelocytes # (Manual) NRBC/100 WBC Diff ABG pH ABG pCO2 34 L ABG pO2 120 H ABG HCO3 20 L ABG O2 Saturation 97.6 H Sodium 134 L Chloride Carbon Dioxide 20 L BUN 32 H Creatinine 1.66 H Est GFR (CKD-EPI)AfAm Est GFR (CKD-EPI)NonAf Glucose 230 H POC Glucose (mg/dL) 234 H Calcium 6.4 L* Ionized Calcium Sridevi Magnesium Iron TIBC % Saturation Ferritin Albumin 2.2 L HDL Cholesterol Urine Protein Urine Blood Urine Bacteria Urine Mucus Crossmatch 04/18/22 04/18/22 06:08 07:10 WBC RBC Hgb Hct MCV MCH MCHC RDW Absolute Nucleated RBC Neutrophils # Lymphocytes # Lymphocytes # (Manual) Eosinophils # Metamyelocytes # (Man) Myelocytes # (Manual) NRBC/100 WBC Diff ABG pH ABG pCO2 ABG pO2 ABG HCO3 ABG O2 Saturation Sodium Chloride Carbon Dioxide BUN Creatinine Est GFR (CKD-EPI)AfAm Est GFR (CKD-EPI)NonAf Glucose POC Glucose (mg/dL) 264 H Calcium Ionized Calcium Sridevi 4.1 L Magnesium Iron TIBC % Saturation Ferritin Albumin HDL Cholesterol Urine Protein Urine Blood Urine Bacteria Urine Mucus Crossmatch - Diagnostic Findings Chest x-ray: image reviewed Assessment and Plan Plan: Acute abdomen secondary to anastomotic leak following a sigmoid resection and low AP resection that was performed on 04/13/2022. The patient was taken to the operating room for expiratory laparotomy on 04/17/2022 and the patient had left colectomy and diverting colostomy. Shock, likely septic in nature secondary to intra-abdominal sepsis, currently on fluids and pressors and the patient is on norepinephrine running at 0.2 mitral respiratory kilogram per minute Acute hypoxic respiratory failure, currently intubated on a mechanical ventilator Sigmoid colon mass, obstructive, post low AP resection performed on 04/13/2022 Anastomotic leak with necrosis of the level of the anastomosis, post colectomy and diverting colostomy on 04/17/2022 Coronary artery disease with previous coronary artery bypass surgery and pre vious coronary stenting Chronic kidney disease, stage III with a component of an acute kidney injury on top of his chronic kidney disease. Patient's creatinine is stable at 1.6. 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 The patient was having GI bleed secondary to colon cancer and subsequently he may have had some intraoperative loss of blood and there may be some dilutional anemia secondary to aggressive fluid resuscitation Diabetes mellitus Hyperlipidemia Hypoproteinemia secondary to above and the patient has third spacing, anasarca and scrotal edema Valvular heart disease with normal biventricular function. The patient has moderate degree of mitral regurgitation severe pulmonary hypertension and severe tricuspid regurgitation COPD maintain on Advair on outpatient basis BPH Plan Keep the patient on mechanical ventilator necessary ventilator changes were done Continue bicarb infusion at the rate of 75 mL an hour. Chest x-ray and blood gases were noted Abdominal wart was noted Keep the patient nothing by mouth for now and consider TPN on this patient. We'll consult dietary in that regard Continue pressors and the patient is currently on norepinephrine at the rate of 0.2 mcg/kg/m Continue IV Zosyn Awaiting intra-abdominal cultures from the abdominal washout. Senna set of blood cultures Monitor renal function the fives on the case this continue Symbicort from the medication list Continue IV Pepcid Continue IV Levemir subcu Levemir 15 units and use sliding scale insulin coverage Conditions of significant. The patient has a triple-lumen catheter and arterial line. Monitor CVP We'll continue to follow Not ready for weaning and extubation at this point especially with his underlying hemodynamic instability.
[2022-04-18] MEDS: SIMETHICONE 40 MG/0.6 ML DROPS 2,000 MG/30 ML BOTTLE PO SCH ×4 (09:40→23:24)
--- NOTE | 2022-04-18 09:48 | P.PN ---
Subjective Patient is seen in follow-up for acute kidney injury. Underwent exploratory laparotomy with washout of abdomen with colostomy placement yesterday. Intubated. On Levophed. On bicarb drip. Nonoliguric. Renal function improving. Vital signs are stable. On Levophed. General: Resting in bed. HEENT: Intubated. LUNGS: No audible rhonchi or wheezes. HEART: Rate and Rhythm are regular. ABDOMEN: Colostomy noted. No drainage. EXTREMITITES: 1+ edema. Scrotal edema noted. Objective - Vital Signs Vital signs: Vital Signs Temp 99.8 F H 04/18/22 08:00 Pulse 82 04/18/22 09:00 Resp 19 04/18/22 09:00 BP 127/66 04/17/22 20:00 Pulse Ox 99 04/18/22 09:00 FiO2 40 04/18/22 09:00 Intake & Output 04/17/22 04/18/22 04/18/22 18:59 06:59 18:59 Intake Total 1707.306 2131.425 539.066 Output Total 1550 1915 300 Balance 61.437 2160.425 239.066 Weight 94 kg Intake: IV 1300 60 18 ART 30 9 CVP 30 9 Intake, IV Titration 1.437 4015.425 521.066 Amount Calcium Gluconate in NaCl 100 2 gm In Saline 1 100ml. bag @ 50 mls/hr IVPB ONCE ONE Rx#:[id number] Dextrose 5% in Water 1, 1650 450 000 ml @ 150 mls/hr IV . Q7H40M [facility] with Sodium Bicarb (1 Meq/ml) 150 ml Rx#:[id number] Magnesium Sulfate-D5w Pmx 400 1 gm In Dextrose/Water 1 100ml.bag @ 100 mls/hr IVPB Q1H [facility] Rx#: [id number] Magnesium Sulfate-D5w Pmx 100 1 gm In Dextrose/Water 1 100ml.bag @ 100 mls/hr IVPB Q1H [facility] Rx#: [id number] Norepinephrine 8 mg In 231.438 71.066 Sodium Chloride 0.9% 250 ml @ 0.03 MCG/KG/MIN 4. 766 mls/hr IV .Q24H [facility] Rx#:[id number] Piperacillin-Tazobactam 3 200 .375 gm In Sodium Chloride 0.9% 100 ml @ 25 mls/hr IVPB Q8HR [facility] Rx# :[id number] Potassium Chloride 20 meq 100 In Water For Injection 1 100ml.bag @ 50 mls/hr IVPB ONCE STA Rx#: [id number] Sodium Chloride 0.9% 1, 1000 000 ml @ 999 mls/hr IV . Q1H1M ONE Rx#:[id number] propofoL 1,000 mg In 1.437 233.987 Empty Bag 1 bag @ 15 MCG/ KG/MIN 7.389 mls/hr IV . [id number] [facility] Rx#:[id number] Oral 0 Blood Product 310 Rc As-1 Unit 310 [id number] Output: Gastric Drainage 200 Urine 1500 1715 300 Estimated Blood Loss 50 Other: Voiding Method Indwelling Catheter Indwelling Catheter Indwelling Catheter # Bowel Movements 0 ABP, PAP, CO, CI - Last Documented Arterial Blood Pressure 94/39 - Labs CBC & Chem 7: 04/18/22 03:00 04/18/22 05:44 Labs: Abnormal Lab Results - Last 24 Hours (Table) 04/17/22 04/17/22 04/17/22 Range/Units 04:47 12:40 15:17 RBC 2.92 L (4.40-5.60) X 10*6/uL Hgb 7.1 L (13.0-17.0) g/dL Hct 25.2 L (39.6-50.0) % MCH 24.3 L (27.0-32.0) pg MCHC 28.2 L (32.0-37.0) g/dL RDW 20.5 H (11.5-14.5) % Absolute Nucleated RBC 0.02 H (0.00-0.00) X 10*3/uL Lymphocytes # 0.38 L (0.90-5.00) X 10*3/uL Lymphocytes # (Manual) (1.0-4.8) k/uL Eosinophils # 0 L (0.04-0.35) X 10*3/uL Metamyelocytes # (Man) (0) k/uL Myelocytes # (Manual) (0) k/uL NRBC/100 WBC Diff 0.3 H (0.0-0.0) /100 WBCS ABG pH (7.35-7.45) ABG pCO2 (35-45) mmHg ABG pO2 (83-108) mmHg ABG HCO3 (21-25) mmol/L ABG O2 Saturation (94-97) % Sodium (137-145) mmol/L Chloride (98-107) mmol/L Carbon Dioxide (22-30) mmol/L BUN (9-20) mg/dL Creatinine (0.66-1.25) mg/dL Glucose (74-99) mg/dL POC Glucose (mg/dL) (70-110) mg/dL Calcium (8.4-10.2) mg/dL Ionized Calcium Sridevi (4.5-5.3) mg/dL Magnesium (1.6-2.3) mg/dL Albumin (3.5-5.0) g/dL Urine Protein Trace H (Negative) Urine Blood Trace H (Negative) Urine Bacteria Rare H (None) /hpf Urine Mucus Rare H (None) /hpf Crossmatch See Detail 04/17/22 04/17/22 04/17/22 Range/Units 18:57 18:57 19:01 RBC 3.53 L (4.40-5.60) X 10*6/uL Hgb 8.9 L D (13.0-17.0) g/dL Hct 30.2 L (39.6-50.0) % MCH (27.0-32.0) pg MCHC 29.5 L (32.0-37.0) g/dL RDW 18.5 H (11.5-14.5) % Absolute Nucleated RBC (0.00-0.00) X 10*3/uL Lymphocytes # (0.90-5.00) X 10*3/uL Lymphocytes # (Manual) 0.45 L (1.0-4.8) k/uL Eosinophils # (0.04-0.35) X 10*3/uL Metamyelocytes # (Man) 0.04 H (0) k/uL Myelocytes # (Manual) 0.04 H (0) k/uL NRBC/100 WBC Diff (0.0-0.0) /100 WBCS ABG pH 7.25 L (7.35-7.45) ABG pCO2 (35-45) mmHg ABG pO2 218 H (83-108) mmHg ABG HCO3 18 L (21-25) mmol/L ABG O2 Saturation 99.6 H (94-97) % Sodium (137-145) mmol/L Chloride 110 H (98-107) mmol/L Carbon Dioxide 18 L (22-30) mmol/L BUN 37 H (9-20) mg/dL Creatinine 1.71 H (0.66-1.25) mg/dL Glucose 100 H (74-99) mg/dL POC Glucose (mg/dL) (70-110) mg/dL Calcium 6.1 L* (8.4-10.2) mg/dL Ionized Calcium Sridevi (4.5-5.3) mg/dL Magnesium 0.9 L* (1.6-2.3) mg/dL Albumin (3.5-5.0) g/dL Urine Protein (Negative) Urine Blood (Negative) Urine Bacteria (None) /hpf Urine Mucus (None) /hpf Crossmatch 04/17/22 04/18/22 04/18/22 Range/Units 23:58 00:58 03:00 RBC 3.31 L (4.40-5.60) X 10*6/uL Hgb 8.4 L (13.0-17.0) g/dL Hct 27.3 L (39.6-50.0) % MCH (27.0-32.0) pg MCHC 30.9 L (32.0-37.0) g/dL RDW 19.3 H (11.5-14.5) % Absolute Nucleated RBC (0.00-0.00) X 10*3/uL Lymphocytes # 0.6 L (0.90-5.00) X 10*3/uL Lymphocytes # (Manual) (1.0-4.8) k/uL Eosinophils # (0.04-0.35) X 10*3/uL Metamyelocytes # (Man) (0) k/uL Myelocytes # (Manual) (0) k/uL NRBC/100 WBC Diff (0.0-0.0) /100 WBCS ABG pH (7.35-7.45) ABG pCO2 (35-45) mmHg ABG pO2 (83-108) mmHg ABG HCO3 (21-25) mmol/L ABG O2 Saturation (94-97) % Sodium 135 L (137-145) mmol/L Chloride (98-107) mmol/L Carbon Dioxide 18 L (22-30) mmol/L BUN 34 H (9-20) mg/dL Creatinine 1.70 H (0.66-1.25) mg/dL Glucose 180 H (74-99) mg/dL POC Glucose (mg/dL) 189 H (70-110) mg/dL Calcium 6.3 L* (8.4-10.2) mg/dL Ionized Calcium Sridevi (4.5-5.3) mg/dL Magnesium 1.5 L (1.6-2.3) mg/dL Albumin (3.5-5.0) g/dL Urine Protein (Negative) Urine Blood (Negative) Urine Bacteria (None) /hpf Urine Mucus (None) /hpf Crossmatch 04/18/22 04/18/22 04/18/22 Range/Units 03:06 03:20 05:44 RBC (4.40-5.60) X 10*6/uL Hgb (13.0-17.0) g/dL Hct (39.6-50.0) % MCH (27.0-32.0) pg MCHC (32.0-37.0) g/dL RDW (11.5-14.5) % Absolute Nucleated RBC (0.00-0.00) X 10*3/uL Lymphocytes # (0.90-5.00) X 10*3/uL Lymphocytes # (Manual) (1.0-4.8) k/uL Eosinophils # (0.04-0.35) X 10*3/uL Metamyelocytes # (Man) (0) k/uL Myelocytes # (Manual) (0) k/uL NRBC/100 WBC Diff (0.0-0.0) /100 WBCS ABG pH (7.35-7.45) ABG pCO2 34 L (35-45) mmHg ABG pO2 120 H (83-108) mmHg ABG HCO3 20 L (21-25) mmol/L ABG O2 Saturation 97.6 H (94-97) % Sodium 134 L (137-145) mmol/L Chloride (98-107) mmol/L Carbon Dioxide 20 L (22-30) mmol/L BUN 32 H (9-20) mg/dL Creatinine 1.66 H (0.66-1.25) mg/dL Glucose 230 H (74-99) mg/dL POC Glucose (mg/dL) 234 H (70-110) mg/dL Calcium 6.4 L* (8.4-10.2) mg/dL Ionized Calcium Sridevi (4.5-5.3) mg/dL Magnesium (1.6-2.3) mg/dL Albumin 2.2 L (3.5-5.0) g/dL Urine Protein (Negative) Urine Blood (Negative) Urine Bacteria (None) /hpf Urine Mucus (None) /hpf Crossmatch 04/18/22 04/18/22 Range/Units 06:08 07:10 RBC (4.40-5.60) X 10*6/uL Hgb (13.0-17.0) g/dL Hct (39.6-50.0) % MCH (27.0-32.0) pg MCHC (32.0-37.0) g/dL RDW (11.5-14.5) % Absolute Nucleated RBC (0.00-0.00) X 10*3/uL Lymphocytes # (0.90-5.00) X 10*3/uL Lymphocytes # (Manual) (1.0-4.8) k/uL Eosinophils # (0.04-0.35) X 10*3/uL Metamyelocytes # (Man) (0) k/uL Myelocytes # (Manual) (0) k/uL NRBC/100 WBC Diff (0.0-0.0) /100 WBCS ABG pH (7.35-7.45) ABG pCO2 (35-45) mmHg ABG pO2 (83-108) mmHg ABG HCO3 (21-25) mmol/L ABG O2 Saturation (94-97) % Sodium (137-145) mmol/L Chloride (98-107) mmol/L Carbon Dioxide (22-30) mmol/L BUN (9-20) mg/dL Creatinine (0.66-1.25) mg/dL Glucose (74-99) mg/dL POC Glucose (mg/dL) 264 H (70-110) mg/dL Calcium (8.4-10.2) mg/dL Ionized Calcium Sridevi 4.1 L (4.5-5.3) mg/dL Magnesium (1.6-2.3) mg/dL Albumin (3.5-5.0) g/dL Urine Protein (Negative) Urine Blood (Negative) Urine Bacteria (None) /hpf Urine Mucus (None) /hpf Crossmatch Microbiology - Last 24 Hours (Table) 04/17/22 09:10 Gram Stain - Preliminary Abdomen Wound Culture - Preliminary 04/17/22 09:10 Anaerobic Culture - Preliminary Abdomen Assessment and Plan Plan: Assessment: 1. Acute kidney injury secondary to ATN and urinary retention. Creatinine peak ed at 2.86 this admission is 1.66 today. No hydronephrosis noted on kidney ultrasound. UA fairly benign. 2. GI bleed status post blood transfusion this admission. 3. 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 Status post exploratory laparotomy with washout of abdomen and colostomy 04/17/2022. 4. Volume overload. Received unit of blood and 3 L normal saline yesterday. 5. Metabolic acidosis secondary to acute kidney injury and IV fluids. Also GI losses. Improving with bicarb drip. 6. Diabetes mellitus. 7. Coronary disease status post CABG and cardiac stenting. 8. Urinary retention. Bo catheter placed. On Flomax. Urology following. 9. Hypokalemia from diuresis and hypomagnesemia. 10. Hypomagnesemia from diuresis and GI losses. Replace. Improved. 11. Hypocalcemia secondary to acute kidney injury. Ionized calcium 4.1. Replaced. Plan: Decrease rate of bicarbonate drip to 75 mL an hour. Lasix 40 mg IV once today. Continue to monitor renal function and urine output. Avoid nephrotoxins. Wean FiO2 and vasopressors. Potassium and magnesium being replaced.
[2022-04-18] MEDS ORDERED: INSULIN ASPART (NovoLOG) 100 UNIT/ML VIAL SQ SCH (12:00)
[2022-04-18 12:32] LABS: Glucose,Whole Blood 242 mg/dL (70-110)
[2022-04-18 13:04] LABS: Phosphorus 3.3 mg/dL (2.5-4.5); Potassium 4.1 mmol/L (3.5-5.1)
--- NOTE | 2022-04-18 14:20 | P.PN ---
Subjective Progress Note Date: 04/18/22 CHIEF COMPLAINT: Colon mass HISTORY OF PRESENT ILLNESS: Patient is postop day #1 status post exploratory laparotomy, washout of abdomen takedown of anastomosis and colostomy in the left upper quadrant for anastomotic leak secondary to ischemic colon. Patient currently in the ICU. He is intubated and on mechanical ventilation. He is requiring Levophed. He did get 1 unit of blood postoperatively. Patient had lower anterior resection for sigmoid colon mass on 04/10/2022. 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 Patient having low- grade temps. WBC 7.5 Hgb 8.4 platelets 243 sodium is 134 potassium is 4.1 creatinine 1.66 calcium 6.1 being replaced magnesium 0.9 up to 1.8. NG tube 200 mL output. Urine output increased. Fluid overload and scrotal edema. Nephrology has ordered IV Lasix. Patient seen and examined with Dr. Carrera PHYSICAL EXAM: VITAL SIGNS: Reviewed. GENERAL: Well-developed in no acute distress. HEENT: No sclera icterus. Extraocular movements grossly intact. Moist buccal mucosa. Head is atraumatic, normocephalic. ABDOMEN: Soft. Drainage noted on abdominal dressing. Colostomy on the left no output NEUROLOGIC: Alert and oriented. Cranial nerves II through XII grossly intact. ASSESSMENT: 1. 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 Anastomotic leak secondary to ischemic colon status post exploratory laparotomy, abdominal washout and colostomy placement 3. Anemia due to GI bleed from the colon mass 4. History of coronary disease with stents placed in February 2022 with prior CABG PLAN: -Continue ICU management -Continue supportive care -Okay to start TPN for nutrition support -Continue antibiotics -Continue to hold Plavix -Change abdominal incisional dressing daily with wet-to-dry dressing -GI prophylaxis Pepcid and DVT prophylaxis subcu heparin Physician [employer] Supervisor note has been reviewed by physician. Signing provider agrees with the documented findings, assessment, and plan of care. Objective - Vital Signs Vital signs: Vital Signs Temp 100.7 F H 04/18/22 12:00 Pulse 82 04/18/22 12:30 Resp 23 04/18/22 12:30 BP 123/75 04/18/22 12:00 Pulse Ox 96 04/18/22 12:30 FiO2 40 04/18/22 12:30 Intake & Output 04/17/22 04/18/22 04/18/22 18:59 06:59 18:59 Intake Total 6460.676 0849.425 1057.875 Output Total 1550 1915 800 Balance 61.437 2160.425 257.875 Weight 94 kg 94 kg Intake: IV 1300 60 36 ART 30 18 CVP 30 18 Intake, IV Titration 1.437 4015.425 1021.875 Amount Calcium Gluconate in NaCl 100 2 gm In Saline 1 100ml. bag @ 50 mls/hr IVPB ONCE ONE Rx#:[id number] Dextrose 5% in Water 1, 1650 675 000 ml @ 75 mls/hr IV . [id number] [facility] with Sodium Bicarb (1 Meq/ml) 150 ml Rx#:[id number] Magnesium Sulfate-D5w Pmx 400 1 gm In Dextrose/Water 1 100ml.bag @ 100 mls/hr IVPB Q1H [facility] Rx#: [id number] Magnesium Sulfate-D5w Pmx 100 1 gm In Dextrose/Water 1 100ml.bag @ 100 mls/hr IVPB Q1H [facility] Rx#: [id number] Norepinephrine 8 mg In 231.438 246.875 Sodium Chloride 0.9% 250 ml @ 0.03 MCG/KG/MIN 4. 766 mls/hr IV .Q24H [facility] Rx#:[id number] Piperacillin-Tazobactam 3 200 .375 gm In Sodium Chloride 0.9% 100 ml @ 25 mls/hr IVPB Q8HR [facility] Rx# :[id number] Potassium Chloride 20 meq 100 In Water For Injection 1 100ml.bag @ 50 mls/hr IVPB ONCE ST[facility] Rx#: [id number] Sodium Chloride 0.9% 1, 1000 000 ml @ 999 mls/hr IV . Q1H1M [facility] Rx#:[id number] propofoL 1,000 mg In 1.437 233.987 100 Empty Bag 1 bag @ 15 MCG/ KG/MIN 7.389 mls/hr IV . [id number] [facility] Rx#:[id number] Oral 0 Blood Product 310 Rc As-1 Unit 310 [id number] Output: Gastric Drainage 200 Urine 1500 1715 800 Estimated Blood Loss 50 Other: Voiding Method Indwelling Catheter Indwelling Catheter Indwelling Catheter # Bowel Movements 0 ABP, PAP, CO, CI - Last Documented Arterial Blood Pressure 96/40 - Labs CBC & Chem 7: 04/18/22 03:00 04/18/22 12:32 Labs: Abnormal Lab Results - Last 24 Hours (Table) 04/17/22 04/17/22 04/17/22 Range/Units 12:40 15:17 18:57 RBC 3.53 L (4.30-5.90) m/uL Hgb 8.9 L D (13.0-17.5) gm/dL Hct 30.2 L (39.0-53.0) % MCHC 29.5 L (31.0-37.0) g/dL RDW 18.5 H (11.5-15.5) % Lymphocytes # (1.0-4.8) k/uL Lymphocytes # (Manual) 0.45 L (1.0-4.8) k/uL Metamyelocytes # (Man) 0.04 H (0) k/uL Myelocytes # (Manual) 0.04 H (0) k/uL ABG pH (7.35-7.45) ABG pCO2 (35-45) mmHg ABG pO2 (83-108) mmHg ABG HCO3 (21-25) mmol/L ABG O2 Saturation (94-97) % Sodium (137-145) mmol/L Chloride (98-107) mmol/L Carbon Dioxide (22-30) mmol/L BUN (9-20) mg/dL Creatinine (0.66-1.25) mg/dL Glucose (74-99) mg/dL POC Glucose (mg/dL) (70-110) mg/dL Calcium (8.4-10.2) mg/dL Ionized Calcium Sridevi (4.5-5.3) mg/dL Magnesium (1.6-2.3) mg/dL Albumin (3.5-5.0) g/dL Urine Protein Trace H (Negative) Urine Blood Trace H (Negative) Urine Bacteria Rare H (None) /hpf Urine Mucus Rare H (None) /hpf Crossmatch See Detail 04/17/22 04/17/22 04/17/22 Range/Units 18:57 19:01 23:58 RBC (4.30-5.90) m/uL Hgb (13.0-17.5) gm/dL Hct (39.0-53.0) % MCHC (31.0-37.0) g/dL RDW (11.5-15.5) % Lymphocytes # (1.0-4.8) k/uL Lymphocytes # (Manual) (1.0-4.8) k/uL Metamyelocytes # (Man) (0) k/uL Myelocytes # (Manual) (0) k/uL ABG pH 7.25 L (7.35-7.45) ABG pCO2 (35-45) mmHg ABG pO2 218 H (83-108) mmHg ABG HCO3 18 L (21-25) mmol/L ABG O2 Saturation 99.6 H (94-97) % Sodium (137-145) mmol/L Chloride 110 H (98-107) mmol/L Carbon Dioxide 18 L (22-30) mmol/L BUN 37 H (9-20) mg/dL Creatinine 1.71 H (0.66-1.25) mg/dL Glucose 100 H (74-99) mg/dL POC Glucose (mg/dL) 189 H (70-110) mg/dL Calcium 6.1 L* (8.4-10.2) mg/dL Ionized Calcium Sridevi (4.5-5.3) mg/dL Magnesium 0.9 L* (1.6-2.3) mg/dL Albumin (3.5-5.0) g/dL Urine Protein (Negative) Urine Blood (Negative) Urine Bacteria (None) /hpf Urine Mucus (None) /hpf Crossmatch 04/18/22 04/18/22 04/18/22 Range/Units 00:58 03:00 03:06 RBC 3.31 L (4.30-5.90) m/uL Hgb 8.4 L (13.0-17.5) gm/dL Hct 27.3 L (39.0-53.0) % MCHC 30.9 L (31.0-37.0) g/dL RDW 19.3 H (11.5-15.5) % Lymphocytes # 0.6 L (1.0-4.8) k/uL Lymphocytes # (Manual) (1.0-4.8) k/uL Metamyelocytes # (Man) (0) k/uL Myelocytes # (Manual) (0) k/uL ABG pH (7.35-7.45) ABG pCO2 (35-45) mmHg ABG pO2 (83-108) mmHg ABG HCO3 (21-25) mmol/L ABG O2 Saturation (94-97) % Sodium 135 L (137-145) mmol/L Chloride (98-107) mmol/L Carbon Dioxide 18 L (22-30) mmol/L BUN 34 H (9-20) mg/dL Creatinine 1.70 H (0.66-1.25) mg/dL Glucose 180 H (74-99) mg/dL POC Glucose (mg/dL) 234 H (70-110) mg/dL Calcium 6.3 L* (8.4-10.2) mg/dL Ionized Calcium Sridevi (4.5-5.3) mg/dL Magnesium 1.5 L (1.6-2.3) mg/dL Albumin (3.5-5.0) g/dL Urine Protein (Negative) Urine Blood (Negative) Urine Bacteria (None) /hpf Urine Mucus (None) /hpf Crossmatch 04/18/22 04/18/22 04/18/22 Range/Units 03:20 05:44 06:08 RBC (4.30-5.90) m/uL Hgb (13.0-17.5) gm/dL Hct (39.0-53.0) % MCHC (31.0-37.0) g/dL RDW (11.5-15.5) % Lymphocytes # (1.0-4.8) k/uL Lymphocytes # (Manual) (1.0-4.8) k/uL Metamyelocytes # (Man) (0) k/uL Myelocytes # (Manual) (0) k/uL ABG pH (7.35-7.45) ABG pCO2 34 L (35-45) mmHg ABG pO2 120 H (83-108) mmHg ABG HCO3 20 L (21-25) mmol/L ABG O2 Saturation 97.6 H (94-97) % Sodium 134 L (137-145) mmol/L Chloride (98-107) mmol/L Carbon Dioxide 20 L (22-30) mmol/L BUN 32 H (9-20) mg/dL Creatinine 1.66 H (0.66-1.25) mg/dL Glucose 230 H (74-99) mg/dL POC Glucose (mg/dL) 264 H (70-110) mg/dL Calcium 6.4 L* (8.4-10.2) mg/dL Ionized Calcium Sridevi (4.5-5.3) mg/dL Magnesium (1.6-2.3) mg/dL Albumin 2.2 L (3.5-5.0) g/dL Urine Protein (Negative) Urine Blood (Negative) Urine Bacteria (None) /hpf Urine Mucus (None) /hpf Crossmatch 04/18/22 04/18/22 Range/Units 07:10 12:31 RBC (4.30-5.90) m/uL Hgb (13.0-17.5) gm/dL Hct (39.0-53.0) % MCHC (31.0-37.0) g/dL RDW (11.5-15.5) % Lymphocytes # (1.0-4.8) k/uL Lymphocytes # (Manual) (1.0-4.8) k/uL Metamyelocytes # (Man) (0) k/uL Myelocytes # (Manual) (0) k/uL ABG pH (7.35-7.45) ABG pCO2 (35-45) mmHg ABG pO2 (83-108) mmHg ABG HCO3 (21-25) mmol/L ABG O2 Saturation (94-97) % Sodium (137-145) mmol/L Chloride (98-107) mmol/L Carbon Dioxide (22-30) mmol/L BUN (9-20) mg/dL Creatinine (0.66-1.25) mg/dL Glucose (74-99) mg/dL POC Glucose (mg/dL) 242 H (70-110) mg/dL Calcium (8.4-10.2) mg/dL Ionized Calcium Sridevi 4.1 L (4.5-5.3) mg/dL Magnesium (1.6-2.3) mg/dL Albumin (3.5-5.0) g/dL Urine Protein (Negative) Urine Blood (Negative) Urine Bacteria (None) /hpf Urine Mucus (None) /hpf Crossmatch Microbiology - Last 24 Hours (Table) 04/17/22 09:10 Gram Stain - Final Abdomen Wound Culture - Final 04/17/22 09:10 Anaerobic Culture - Preliminary Abdomen
--- NOTE | 2022-04-18 14:50 | P.PN ---
Subjective Progress Note Date: 04/18/22 Patient is a 72-year-old male with a known history of coronary artery disease status post CABG and recent stent placement in February 2022 initially presented to ER with complaints of shortness of breath and exertional dyspnea. Patient initially thought it was due to his heart condition and went to ER. Patient was found to have a hemoglobin of 6.9 and received 1 unit of PRBC. Patient was tested positive for FOBT. Patient is also taking aspirin and Plavix from recent stent placement. Patient also states that he has been taking Motrin for the last couple of weeks for his neuropathy pain in his feet. Denies any complaints of hematemesis dark-colored stools. Patient was transferred to [facility] for GI evaluation. On admission WBC 4.4 hemoglobin 7.5 MCV 79.7 and platelets 243 Sodium 143 potassium 4.2 chloride 101 bicarb is 19 BUN 25 and creatinine 1.72 Calcium 7.4 04/11/2022 Patient is currently resting in bed. Awake alert and oriented x3. No complaints of chest pain or shortness of breath. Otherwise underwent EGD and colonoscopy today. EGD showed moderate size hiatal hernia but no evidence of esophagitis or peptic ulcer disease. No evidence of GI bleed. Colonoscopy showed a) Near circumferential sigmoid colon mass at 28 cm from the anal verge status post multiple biopsies followed by tattooing with Aiyana ink b) 5 mm rectal polyp status post polypectomy General surgery was consulted and follow-up biopsy report.. Hemoglobin is stable at 8.6 otherwise. Denies any complaints of nausea or vomiting. Patient was started on clear liquid diet and follow H&H. 04/12/2022 Patient is currently resting in the bed. Awake alert and oriented x3. No complaints of chest pain or shortness of breath. No nausea vomiting abdominal pain or diarrhea. No cough or sputum production. Patient was seen by general surgery and is planning for or tomorrow. Antiplatelets on hold. Laboratory data reviewed. Patient is being current on iron supplementation Protonix IV push daily. 04/13/2022 Patient is currently lying in bed. Awake alert and oriented. Pain is fairly controlled. Status post low anterior resection of the sigmoid colon. Postoperative day 0 No fever no chills. Currently on room air. No nausea vomiting or diarrhea. Laboratory data showed WBC 5.3 hemoglobin 7.7 platelets 216 sodium 140 potassium 3.8 chloride 106 bicarb is 22 BUN 16 and creatinine 1.69. Calcium 7.5. General surgery and cardiology is on board. 04/14/2022 Patient is evaluated today sitting up in chair currently postoperative day #1 low anterior resection for sigmoid colon mass with pathology currently pending at this time. Patient is currently on clear liquid diet. Not passing gas yet and no BM. Reports controlled incisional abdominal pain. Wound vac is in place and intact. Patient is currently on D5 0.45 normal saline with potassium. Creatinine is up to 2.0 today. 04/15/2022 Patient is evaluated today on stepdown unit currently postoperative day #2 sigmoid colon resection. Aspirin and plavix remain on hold. Cardiology following closely. Blood pressure has improved to 139/71 today. Indwelling catheter removed yesterday afternoon, patient has issues with urinary retention overnight and for this reason normal saline was placed on hold. Patient has been unable to void and urinary strait cath was unable to produce urine. Bladder scan today showing 70 mls in urinary bladder. Creatinine is up to 2.86 today. Urology has been consulted for placement of urinary catheter and IV fluids have been resumed at an increased rate. Continues on clear liquid diet. Reports abdominal pain is controlled today. Blood glucose has been increased and insulin has been added. Remains afebrile, heart rate 72, blood pressure 120/68, 92% room air. 04/16/2022 Patient is evaluated on medical floor. he is postoperative day #3 sigmoid colon resection. Patient had urinary catheter placed by urology for urinary retention. Overnight has had 225 mLs of urine output, he is continued on normal saline at 125 mls/hr. Creatinine today has improved 2.29. Sodium up to 134. Renal ultrasound has been ordered and will repeat labs in AM. Patient had a bowel movement today he reports. He has some abdominal distention, states he is not passing much gas and feels bloated. Hemodynamically stable. 04/17/2022 Patient is evaluated on medical floor. Patients abdomen appears more distended with increased shortness of breath. He is postoperative day #4 low anterior resection of sigmoid colon secondary to mass. 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 He had chest xray completed with report called by radiology with large amount of free intraperitoneal air and bilateral infiltrate and small effusion. Correlate for mild venous congestion. Abdominal pelvis CT was ordered and results showing moderate to large amount of free intraperitoneal air may be related to patients interval surgery and colonic resection. Moderate bilateral pleural effusions, small amount of ascites around the liver, body wall edema, large hiatal hernia. Patient will undergo exploratory laporatomy today. Patient was noted to have purulent drainage from wound vac and also from midline incision which was cultured and patient was started on antibiotics. Blood cultures will be taken as well. Patient has been hydrated overnight with normal saline and creatinine has improved to 2.0, however his urine output remains marginal with 600 mls in the last 24 hours from indwelling urinary catheter. Renal ultrasound showing possible mild thinning of left renal cortex correlate for chronic medical renal disease with no hydronephrosis or nephrolisthiasis. Labs today showing white count 7.98, hgb 7.1, platelets 97, sodium 138, potassium 4.7, BUN 36.3, creatinine 2.0. Urinalysis negative. Patient is afebrile, heart rate 78, blood pressure 142/63, 100% on 3L nasal cannula. 04/18/2022 Patient is evaluated in the intensive care unit currently intubated on mechanical ventilator and sedated. Patient was found to have free air in the abdomen and was taken for exploratory laporatomy yesterday and was found to have ischemic bowel. Patient had take down of the anastamosis and colectomy, washout of abdomen and colostomy left upper quadrant. Patient was taken from the OR and admitted to the intensive care unit. Patient is evaluated today postoperative day #1, and also postoperative day #5 low anterior resection. Patient has OG tube in place with 200 mls of gastric output total which brown in color with black noted in the collection cannister. He did receive 2 units of PRBCs and hemoglobin is stable today at 8.4. He received 1 unit of PRBC on admission as well. He continues on aspirin 81 mg daily and plavix remains on hold. Cardiology following. Patient had ABGs done today showing pH of 7.38, pCO2 of 34, pO2 of 120 HCO3 of 20. He will continue to remain on mechanical ventilator overnight. Blood pressure remains on the lower side and patient is currently on lovephed running at 0.28 mcg/kg/min. Nephrology is following and patient continues on bicarbonate gtt running at 75 mls/hr. Chest xray today reports persistent areas of consolidation pleural effusion correlate for CHF, superimposed pneumonia not excluded. Blood culture and wound cultures are pending and patient has been started on IV zosyn. Patient will be started on TPN today. He is sedated with propofol. Surgical site is examined with retention sutures in place covered with ABD dressing. Additionally patient has LUQ colostomy in place with stoma showing no signs of necrosis and there is small amt of brown liquid stool in ostomy. Labs today showing white count of 7.5, hgb 8.4, sodium 134, potassium 3.7, BUN 32, creatinine 1.66, blood glucose 242, calcium 6.4, phosphorous 3.3, magnesium 1.8, albumin 2.2. Patient has temp of 100.7 today, heart rate 82, blood pressure 99/43, and oxygen saturation of 98% on mechanical ventilator with 40% FiO2. Unable to complete review of systems patient is intubated and sedated. PHYSICAL EXAMINATION: Patient is evaluated in ICU intubated and sedated. HEENT: Normocephalic. Neck is supple. Pupils reactive. Nostrils clear. Oral cavity is moist. Neck reveals no JVD, carotid bruits, or thyromegaly. CHEST EXAMINATION: Trachea is central. Symmetrical expansion. Lung escalante clear to auscultation and percussion. CARDIAC: Normal S1, S2 with no gallops. No murmurs ABDOMEN: Distended. ABD dressing in place. Bowel sounds diminished. No guarding or rigidity. No abdominal bruits. Extremities: reveal no edema. No clubbing or cyanosis Neurologically awake, alert, oriented x3 with well-coordinated movements. No focal deficits noted Skin: No rash or skin lesions. Lower extremity edema. Psychiatric: Coperative. Nonsuicidal, Musculoskeletal: No joint swelling or deformity. Assessment and Plan Assessment Sigmoid colon mass status post low anterior resection postoperative day #5 with 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 Anastomotic leak and ischemic bowel following low anterior resection patient is currently postoperative day #1 abdominal washout, takedown of anastamosis with left colectomy and colostomy formation LUQ. Shock likely septic shock secondary to above and requiring vasopressor support and ICU care Acute hypoxic respiratory failure currently intubated on mechanical ventilator Acute blood loss anemia from GI bleed secondary to sigmoid colon mass. Patient received 1 unit PRBC on admission. Acute kidney injury prerenal with acute tubular necrosis Postoperative urinary retention with indwelling catheter placed Microcytic anemia with iron deficiency. Hyperglycemia Coronary artery disease with history of stent placement in February 2022 Coronary artery disease history of CABG GI and DVT prophylaxis with SCDs Full Code Plan: Continue mechanical ventilator per airborne operations superintendent Patient continues on vasopressor support and sedation Cultures are pending and patient continues on IV zosyn s/p 1 time dose of 40 mg IV lasix and continues on IV bicarbonate Monitor H&H closely. Transfusion of hemoglobin less than 7. Plavix remains on hold Patient to be started on TPN Continue accuchecks Q6h and insulin has been increased today Multiple consultations following including nephrology, urology, cardiology, general surgery, pulmonary airborne operations superintendent Repeat labs in AM Condition remains guarded. Patients was updated on patients status and plan of care via telephone. will be in tomorrow. The impression and plan of care has been dictated by Carmita Johnson, Nurse Practitioner as directed. Dr. Akbar MD I have performed a history and physical examination and medical decision making of this patient, discussed the same with the dictator, and agree with the dictators assessment and plan as written, documented as a scribe. Based on total visit time, I have performed more than 50% of this visit. Objective - Vital Signs Vital signs: Vital Signs Temp 99.8 F H 04/18/22 08:00 Pulse 82 04/18/22 09:00 Resp 19 04/18/22 09:00 BP 127/66 04/17/22 20:00 Pulse Ox 99 04/18/22 09:00 FiO2 40 04/18/22 09:00 Intake & Output 04/17/22 04/18/22 04/18/22 18:59 06:59 18:59 Intake Total 2341.573 0987.425 539.066 Output Total 1550 1915 300 Balance 61.437 2160.425 239.066 Weight 94 kg Intake: IV 1300 60 18 ART 30 9 CVP 30 9 Intake, IV Titration 1.437 4015.425 521.066 Amount Calcium Gluconate in NaCl 100 2 gm In Saline 1 100ml. bag @ 50 mls/hr IVPB ONCE ONE Rx#:[id number] Dextrose 5% in Water 1, 1650 450 000 ml @ 150 mls/hr IV . Q7H40M [facility] with Sodium Bicarb (1 Meq/ml) 150 ml Rx#:[id number] Magnesium Sulfate-D5w Pmx 400 1 gm In Dextrose/Water 1 100ml.bag @ 100 mls/hr IVPB Q1H [facility] Rx#: [id number] Magnesium Sulfate-D5w Pmx 100 1 gm In Dextrose/Water 1 100ml.bag @ 100 mls/hr IVPB Q1H [facility] Rx#: [id number] Norepinephrine 8 mg In 231.438 71.066 Sodium Chloride 0.9% 250 ml @ 0.03 MCG/KG/MIN 4. 766 mls/hr IV .Q24H [facility] Rx#:[id number] Piperacillin-Tazobactam 3 200 .375 gm In Sodium Chloride 0.9% 100 ml @ 25 mls/hr IVPB Q8HR [facility] Rx# :[id number] Potassium Chloride 20 meq 100 In Water For Injection 1 100ml.bag @ 50 mls/hr IVPB ONCE STA Rx#: [id number] Sodium Chloride 0.9% 1, 1000 000 ml @ 999 mls/hr IV . Q1H1M [facility] Rx#:[id number] propofoL 1,000 mg In 1.437 233.987 Empty Bag 1 bag @ 15 MCG/ KG/MIN 7.389 mls/hr IV . [id number] [facility] Rx#:[id number] Oral 0 Blood Product 310 Rc As-1 Unit 310 [id number] Output: Gastric Drainage 200 Urine 1500 1715 300 Estimated Blood Loss 50 Other: Voiding Method Indwelling Catheter Indwelling Catheter Indwelling Catheter # Bowel Movements 0 ABP, PAP, CO, CI - Last Documented Arterial Blood Pressure 94/39 - Labs CBC & Chem 7: 04/18/22 03:00 04/18/22 12:32 Labs: Abnormal Lab Results - Last 24 Hours (Table) 04/17/22 04/17/22 04/17/22 Range/Units 04:47 12:40 15:17 RBC 2.92 L (4.40-5.60) X 10*6/uL Hgb 7.1 L (13.0-17.0) g/dL Hct 25.2 L (39.6-50.0) % MCH 24.3 L (27.0-32.0) pg MCHC 28.2 L (32.0-37.0) g/dL RDW 20.5 H (11.5-14.5) % Absolute Nucleated RBC 0.02 H (0.00-0.00) X 10*3/uL Lymphocytes # 0.38 L (0.90-5.00) X 10*3/uL Lymphocytes # (Manual) (1.0-4.8) k/uL Eosinophils # 0 L (0.04-0.35) X 10*3/uL Metamyelocytes # (Man) (0) k/uL Myelocytes # (Manual) (0) k/uL NRBC/100 WBC Diff 0.3 H (0.0-0.0) /100 WBCS ABG pH (7.35-7.45) ABG pCO2 (35-45) mmHg ABG pO2 (83-108) mmHg ABG HCO3 (21-25) mmol/L ABG O2 Saturation (94-97) % Sodium (137-145) mmol/L Chloride (98-107) mmol/L Carbon Dioxide (22-30) mmol/L BUN (9-20) mg/dL Creatinine (0.66-1.25) mg/dL Glucose (74-99) mg/dL POC Glucose (mg/dL) (70-110) mg/dL Calcium (8.4-10.2) mg/dL Ionized Calcium Sridevi (4.5-5.3) mg/dL Magnesium (1.6-2.3) mg/dL Albumin (3.5-5.0) g/dL Urine Protein Trace H (Negative) Urine Blood Trace H (Negative) Urine Bacteria Rare H (None) /hpf Urine Mucus Rare H (None) /hpf Crossmatch See Detail 04/17/22 04/17/22 04/17/22 Range/Units 18:57 18:57 19:01 RBC 3.53 L (4.40-5.60) X 10*6/uL Hgb 8.9 L D (13.0-17.0) g/dL Hct 30.2 L (39.6-50.0) % MCH (27.0-32.0) pg MCHC 29.5 L (32.0-37.0) g/dL RDW 18.5 H (11.5-14.5) % Absolute Nucleated RBC (0.00-0.00) X 10*3/uL Lymphocytes # (0.90-5.00) X 10*3/uL Lymphocytes # (Manual) 0.45 L (1.0-4.8) k/uL Eosinophils # (0.04-0.35) X 10*3/uL Metamyelocytes # (Man) 0.04 H (0) k/uL Myelocytes # (Manual) 0.04 H (0) k/uL NRBC/100 WBC Diff (0.0-0.0) /100 WBCS ABG pH 7.25 L (7.35-7.45) ABG pCO2 (35-45) mmHg ABG pO2 218 H (83-108) mmHg ABG HCO3 18 L (21-25) mmol/L ABG O2 Saturation 99.6 H (94-97) % Sodium (137-145) mmol/L Chloride 110 H (98-107) mmol/L Carbon Dioxide 18 L (22-30) mmol/L BUN 37 H (9-20) mg/dL Creatinine 1.71 H (0.66-1.25) mg/dL Glucose 100 H (74-99) mg/dL POC Glucose (mg/dL) (70-110) mg/dL Calcium 6.1 L* (8.4-10.2) mg/dL Ionized Calcium Sridevi (4.5-5.3) mg/dL Magnesium 0.9 L* (1.6-2.3) mg/dL Albumin (3.5-5.0) g/dL Urine Protein (Negative) Urine Blood (Negative) Urine Bacteria (None) /hpf Urine Mucus (None) /hpf Crossmatch 04/17/22 04/18/22 04/18/22 Range/Units 23:58 00:58 03:00 RBC 3.31 L (4.40-5.60) X 10*6/uL Hgb 8.4 L (13.0-17.0) g/dL Hct 27.3 L (39.6-50.0) % MCH (27.0-32.0) pg MCHC 30.9 L (32.0-37.0) g/dL RDW 19.3 H (11.5-14.5) % Absolute Nucleated RBC (0.00-0.00) X 10*3/uL Lymphocytes # 0.6 L (0.90-5.00) X 10*3/uL Lymphocytes # (Manual) (1.0-4.8) k/uL Eosinophils # (0.04-0.35) X 10*3/uL Metamyelocytes # (Man) (0) k/uL Myelocytes # (Manual) (0) k/uL NRBC/100 WBC Diff (0.0-0.0) /100 WBCS ABG pH (7.35-7.45) ABG pCO2 (35-45) mmHg ABG pO2 (83-108) mmHg ABG HCO3 (21-25) mmol/L ABG O2 Saturation (94-97) % Sodium 135 L (137-145) mmol/L Chloride (98-107) mmol/L Carbon Dioxide 18 L (22-30) mmol/L BUN 34 H (9-20) mg/dL Creatinine 1.70 H (0.66-1.25) mg/dL Glucose 180 H (74-99) mg/dL POC Glucose (mg/dL) 189 H (70-110) mg/dL Calcium 6.3 L* (8.4-10.2) mg/dL Ionized Calcium Sridevi (4.5-5.3) mg/dL Magnesium 1.5 L (1.6-2.3) mg/dL Albumin (3.5-5.0) g/dL Urine Protein (Negative) Urine Blood (Negative) Urine Bacteria (None) /hpf Urine Mucus (None) /hpf Crossmatch 04/18/22 04/18/22 04/18/22 Range/Units 03:06 03:20 05:44 RBC (4.40-5.60) X 10*6/uL Hgb (13.0-17.0) g/dL Hct (39.6-50.0) % MCH (27.0-32.0) pg MCHC (32.0-37.0) g/dL RDW (11.5-14.5) % Absolute Nucleated RBC (0.00-0.00) X 10*3/uL Lymphocytes # (0.90-5.00) X 10*3/uL Lymphocytes # (Manual) (1.0-4.8) k/uL Eosinophils # (0.04-0.35) X 10*3/uL Metamyelocytes # (Man) (0) k/uL Myelocytes # (Manual) (0) k/uL NRBC/100 WBC Diff (0.0-0.0) /100 WBCS ABG pH (7.35-7.45) ABG pCO2 34 L (35-45) mmHg ABG pO2 120 H (83-108) mmHg ABG HCO3 20 L (21-25) mmol/L ABG O2 Saturation 97.6 H (94-97) % Sodium 134 L (137-145) mmol/L Chloride (98-107) mmol/L Carbon Dioxide 20 L (22-30) mmol/L BUN 32 H (9-20) mg/dL Creatinine 1.66 H (0.66-1.25) mg/dL Glucose 230 H (74-99) mg/dL POC Glucose (mg/dL) 234 H (70-110) mg/dL Calcium 6.4 L* (8.4-10.2) mg/dL Ionized Calcium Sridevi (4.5-5.3) mg/dL Magnesium (1.6-2.3) mg/dL Albumin 2.2 L (3.5-5.0) g/dL Urine Protein (Negative) Urine Blood (Negative) Urine Bacteria (None) /hpf Urine Mucus (None) /hpf Crossmatch 04/18/22 04/18/22 Range/Units 06:08 07:10 RBC (4.40-5.60) X 10*6/uL Hgb (13.0-17.0) g/dL Hct (39.6-50.0) % MCH (27.0-32.0) pg MCHC (32.0-37.0) g/dL RDW (11.5-14.5) % Absolute Nucleated RBC (0.00-0.00) X 10*3/uL Lymphocytes # (0.90-5.00) X 10*3/uL Lymphocytes # (Manual) (1.0-4.8) k/uL Eosinophils # (0.04-0.35) X 10*3/uL Metamyelocytes # (Man) (0) k/uL Myelocytes # (Manual) (0) k/uL NRBC/100 WBC Diff (0.0-0.0) /100 WBCS ABG pH (7.35-7.45) ABG pCO2 (35-45) mmHg ABG pO2 (83-108) mmHg ABG HCO3 (21-25) mmol/L ABG O2 Saturation (94-97) % Sodium (137-145) mmol/L Chloride (98-107) mmol/L Carbon Dioxide (22-30) mmol/L BUN (9-20) mg/dL Creatinine (0.66-1.25) mg/dL Glucose (74-99) mg/dL POC Glucose (mg/dL) 264 H (70-110) mg/dL Calcium (8.4-10.2) mg/dL Ionized Calcium Sridevi 4.1 L (4.5-5.3) mg/dL Magnesium (1.6-2.3) mg/dL Albumin (3.5-5.0) g/dL Urine Protein (Negative) Urine Blood (Negative) Urine Bacteria (None) /hpf Urine Mucus (None) /hpf Crossmatch Microbiology - Last 24 Hours (Table) 04/17/22 09:10 Gram Stain - Preliminary Abdomen Wound Culture - Preliminary 04/17/22 09:10 Anaerobic Culture - Preliminary Abdomen Assessment and Plan Time with Patient: Greater than 30
[2022-04-18] MEDS ORDERED: [UNRECOGNIZED DRUG - REMARK] IV ONE ×4 (15:00)
[2022-04-18] MEDS ORDERED: SODIUM CHLORIDE 0.9% 1,000 ML IV ONE ×2 (16:01)
[2022-04-18] MEDS: VASOPRESSIN 20 UNIT in SODIUM CHLORIDE 0.9% 50 ML IV SCH ×2 (16:36→23:23)
[2022-04-18 17:48] LABS: Glucose,Whole Blood 220 mg/dL (70-110)
[2022-04-18] MEDS ORDERED: ACETAMINOPHEN IV (For NPO) 1,000 MG in EMPTY BAG 1 BAG IVPB PRN (19:15)
[2022-04-18] MEDS: INSULIN DETEMIR (LEVEMIR) 100 UNIT/ML SYR SQ SCH (20:26)
[2022-04-18 23:28] LABS: Glucose,Whole Blood 213 mg/dL (70-110)
[2022-04-19] MEDS: IPRATROPIUM 0.5 MG/2.5 ML NEBU INHALATION SCH ×6 (01:09→20:20)
[2022-04-19] MEDS: ALBUTEROL NEBULIZED 2.5 MG/3 ML INHALATION SCH ×6 (01:10→20:20)
[2022-04-19] MEDS: NOREPINEPHRINE 8 MG in SODIUM CHLORIDE 0.9% 250 ML IV SCH ×2 (02:25→16:26)
[2022-04-19] MEDS: PIPERACILLIN-TAZOBACTAM 3.375 GM in SODIUM CHLORIDE 0.9% 100 ML IVPB SCH ×3 (02:27→18:11)
[2022-04-19] MEDS: HYDROmorphone 1 MG/ML 1 ML SYRINGE IVP PRN ×3 (02:42→11:51)
[2022-04-19 04:14] LABS: Anisocytosis Slight; Basophils % (A) 0 %; Eosinophils # (A) 0.2 k/uL (0-0.7); Eosinophils % (A) 3 %; HCT 26.4 % (39.0-53.0); HGB 8.2 gm/dL (13.0-17.5); Hypochromasia Marked; Lymphocytes # (A) 0.7 k/uL (1.0-4.8); Lymphocytes % (A) 8 %; MCH 25.6 pg (25.0-35.0); MCHC 30.9 g/dL (31.0-37.0); MCV 82.6 fL (80.0-100.0); Mean Platelet Volume 9.2; Microcytosis Slight; Monocytes # (A) 0.5 k/uL (0-1.0); Monocytes % (A) 5 %; Neutrophils # (A) 7.8 k/uL (1.3-7.7); Neutrophils % (A) 82 %; Platelet Count 241 k/uL (150-450); Poikilocytosis Moderate; RDW 19.1 % (11.5-15.5); WBC 9.5 k/uL (3.8-10.6)
[2022-04-19 04:34] LABS: Albumin 2.1 g/dL (3.5-5.0); Magnesium 1.5 mg/dL (1.6-2.3); Phosphorus 3.4 mg/dL (2.5-4.5); Total Bilirubin 0.8 mg/dL (0.2-1.3); Total Protein 4.2 g/dL (6.3-8.2)
[2022-04-19 04:41] LABS: Calcium 6.4 mg/dL (8.4-10.2)
[2022-04-19] MEDS ORDERED: Magnesium Replacement Protocol 1 EACH MISC MISCELLANE PRN (04:59)
[2022-04-19] MEDS ORDERED: Potassium Replacement Protocol 1 EACH MISC MISCELLANE PRN (04:59)
[2022-04-19] MEDS: DEXTROSE 5% IN WATER 1,000 ML with SODIUM BICARB (1 MEQ/ML) 150 ML IV SCH (05:01)
[2022-04-19] MEDS: POTASSIUM CHLORIDE 20 MEQ in WATER FOR INJECTION 1 100ML.BAG IVPB SCH ×3 (05:19→10:09)
[2022-04-19] MEDS: MAGNESIUM SULFATE-D5W PMX 1 GM in DEXTROSE/WATER 1 100ML.BAG IVPB SCH ×4 (05:19→08:52)
[2022-04-19] MEDS ORDERED: NACL IVPB ONE (05:32)
[2022-04-19] MEDS ORDERED: SALINE IVPB ONE (05:32)
[2022-04-19] MEDS ORDERED: CALCIUM GLUCONATE IVPB ONE (05:32)
[2022-04-19 05:33] LABS: ABG Base Excess 2.1 mmol/L; ABG HCO3 27 mmol/L (21-25); ABG Oxygen Saturation 98.1 % (94-97); ABG PCO2 42 mmHg (35-45); ABG PH 7.42 (7.35-7.45); ABG PO2 92 mmHg (83-108); ABG TCO2 28 mmol/L (19-24); Allen Test Performed? Yes
[2022-04-19] MEDS ORDERED: CALCIUM GLUCONATE IN NACL 2 GM in SALINE 1 100ML.BAG IVPB ONE (05:45)
[2022-04-19 06:01] LABS: Glucose,Whole Blood 261 mg/dL (70-110)
[2022-04-19] MEDS: INSULIN ASPART (NovoLOG) 100 UNIT/ML VIAL SQ SCH ×3 (06:02→18:07)
--- NOTE | 2022-04-19 07:19 | XR ---
EXAMINATION TYPE: XR chest 1V portable DATE OF EXAM: 04/19/2022 5:44 AM COMPARISON: Chest radiograph from one day prior. TECHNIQUE: XR chest 1V portable Portable AP radiograph of the chest. CLINICAL INDICATION:Male, 72 years old with history of Tube placement; FINDINGS: Lungs/Pleura: No evidence of focal consolidation or pneumothorax. Blunting of the costophrenic angles is present. Pulmonary vascularity: Pulmonary vascular congestion. Heart/mediastinum: Cardiomediastinal silhouette is enlarged and stable. Musculoskeletal: No acute osseous pathology. Midline sternotomy wires are noted. Other findings: None Lines/Tubes: Endotracheal tube with distal tip 1.3 cm above the judah. Nasogastric tube with its distal tip and side-port projecting under the diaphragm. Left internal jugular central venous catheter with distal tip at the superior vena cava. IMPRESSION: 1. Endotracheal tube in low position retract to 3 cm for optimal placement. 2. Cardiomegaly with pulmonary vascular congestion and bilateral pleural effusions. 3. Nasogastric tube and central line in appropriate position.
[2022-04-19] MEDS: INSULIN DETEMIR (LEVEMIR) 100 UNIT/ML SYR SQ SCH ×2 (07:52→20:13)
[2022-04-19] MEDS: ASPIRIN 81 MG PO SCH (07:52)
[2022-04-19] MEDS: FAMOTIDINE 20 MG/2 ML VIAL IV SCH (07:52)
[2022-04-19] MEDS: CHLORHEXIDINE GLUCONATE 15 ML CUP MUCOUS MEM SCH ×2 (07:52→20:13)
[2022-04-19] MEDS: ATORVASTATIN 40 MG TAB PO SCH (07:53)
[2022-04-19] MEDS: HEPARIN SODIUM,PORCINE/PF 5,000 UNIT/0.5 ML SYRINGE SQ SCH ×2 (07:53→15:17)
[2022-04-19] MEDS: TAMSULOSIN 0.4 MG CAP.ER.24H PO SCH (07:53)
[2022-04-19] MEDS: SIMETHICONE 40 MG/0.6 ML DROPS 2,000 MG/30 ML BOTTLE PO SCH ×4 (07:53→21:29)
--- NOTE | 2022-04-19 08:50 | P.PN ---
Subjective Progress Note Date: 04/19/22 This is a 72-year-old male patient was brought into the intensive care unit after having his second surgery on 04/17/2022 which involved expiratory laparotomy, the patient had the surgery for an underlying anastomotic leak. The patient underwent a abdominal washout and takedown of anastomosis and colectomy and colostomy in the left upper quadrant. Estimated blood loss was around 25 mL. Postop, the patient was kept intubated on a mechanical ventilator. He was brought into the intensive care unit. He was quite hypotensive. His CVP was low on the eighth. He will received a total of saline boluses and following that he was started on pressors. Currently norepinephrine is running at 0.24 mcg/kg/m. The patient is intubated on a mechanical ventilator. Is currently on propofol at 45 mcg/kg/m and the patient is currently on assist control mode at a rate of 20, tidal volume of 450, FiO2 40% and a PEEP of 5. Note that overnight, the patient was found to be acidotic. He was given IV bicarb and following that he was started on a bicarbonate infusion which is still running at the rate of 150 mL an hour. Serum bicarb today is up to 20. Blood gas from today showed a pH of 7.38 with episodes of 34 and a pO2 of 120 and this was on FiO2 of 50%. WBC count is at 7.5 with a hemoglobin of 8.4 and a platelet count of 243. He did not fluid balance is positive for liters at least over the past 12 hours. The patient remains on IV Zosyn. He is adequately sedated. His colostomy site is light pink without evidence of any necrosis. The patient has no output in the colostomy bag. Surgical 1 site was inspected. The patient has retention sutures. There is leak of serosanguineous/bloody effusion from the one surface. The patient has a large midabdominal incision extending above and below the umbilicus all the way down to his pelvis. He does have scrotal edema. He does have +1 pitting edema. Orogastric tube is also in place. Ultrasound OG is only 200 over the past 8 hours. Note that this patient has history of coronary artery disease with previous bypass surgery and had a recent stent placement in February 2022. He came into the emergency department for shortness of breath. He was found to be intimate with a hemoglobin of 6.9. Given a unit of packed RBC. His fecal occult blood was positive. He underwent EGD and colonoscopy. EGD showed moderately sized hiatal hernia and colonoscopy showed a circumferential sigmoid mass 28 cm from the anal verge and 5 mm rectal polyp. Based on that, the patient was taken to the operating room on 04/13/2022 and the patient underwent a low anterior resection on 04/13/2022. His course was complicated by development of abdominal distention and worsening shortness of breath. This occurred on postoperative day #4. A CAT scan of the abdomen was done yesterday that showed evidence of a moderate to large amount of free intraperitoneal air consistent with anastomotic leak. There was also moderate bilateral pleural effusions. There was small amount of ascites around the liver. There was large hiatal hernia and by the edema. Chest x-ray from today is showing cardiomegaly, bilateral pleural effusion, is about the pulmonary infiltrates, thoracotomy wires, triple-lumen catheter in his left IJ and adequate positioning of the orogastric tube. There is evidence also of bilateral pleural effusions. On 04/19/2022, the patient remains intubated on a mechanical ventilator. The patient is postop day #2. THE patient had an anastomotic leak following bowel surgery in a patient presented to the intensive care following his surgery intubated on a mechanical ventilator. This morning, the patient is on propofol running at 45 mcg/kg/m. His calm and comfortable and symptoms mechanical ventilator. At the same time, is on assist control mode at a rate of 20, tidal volume of 450, FiO2 of 40% with a PEEP of 5. The blood gas from this morning shows a pH of 7.42 pCO2 of 42 and pO2 of 92. The chest x-ray from today is mychal wing bilateral pleural effusion/consolidation is worse on the right. 82 is around 1.5 cm away from judah. Triple-lumen catheter was also placed in his left IJ. Hemodynamically, the patient is on IV fluids and currently is on bicarb infusion running at the rate of 75 mL an hour. His bicarb can be discontinued as the patient's serum bicarb is up to 25. Sodium is at 137 with a potassium level of 3.[address] Urine output is in order of 150 mL an hour. His overall fluid balance over the past 24 hours has been +3.5 L. In terms of hemodynamic support, the patient is on norepinephrine running at 0.1 mcg/kg/m. He also has vasopressin at physiologic dose at 0.03 units an hour. Cardiac rhythm is sinus. The patient was started on TPN for nutritional support which is running at the rate of 30 mL an hour. He is showing some signs of fluid overload with increase in scrotal edema. The colostomy stoma is viable. The tissue looks healthy. There is some liquidy material collecting in the bag. The abdomen is distended. Surgical wound is open and there is some limited serosanguineous material from the surgical one-sided. Orogastric tube in place. Output from the OG has been in the order of 10-20 mL over the past 24 hours. Patient is calm and comfortable. He is running episodes of fever. His T-max was 102. Blood culture is negative. Intra-abdominal cultures are still pending for now. Objective - Vital Signs Vital signs: Vital Signs Temp 99.6 F 04/19/22 08:00 Pulse 89 04/19/22 08:00 Resp 22 04/19/22 08:00 BP 134/43 04/18/22 17:00 Pulse Ox 95 04/19/22 08:00 FiO2 40 04/19/22 08:00 Intake & Output 04/18/22 04/19/22 04/19/22 18:59 06:59 18:59 Intake Total 4038.416 3194.449 472.183 Output Total 2009 1795 385 Balance 2028.416 1399.449 87.183 Weight 94 kg 103.6 kg Intake: IV 72 2522 442 0.9% @ KVO 220 20 ACETAMINOPHEN IV (For NPO 1000 ) 1,000 mg In Empty Bag 1 bag @ 400 mls/hr IVPB Q6HR PRN Rx#:[id number] ART 36 3 CVP 36 3 Dextrose 5% in Water 1, 825 150 000 ml @ 75 mls/hr IV . [id number] [facility] with Sodium Bicarb (1 Meq/ml) 150 ml Rx#:[id number] Magnesium Sulfate-D5w Pmx 100 1 gm In Dextrose/Water 1 100ml.bag @ 100 mls/hr IVPB Q1H [facility] Rx#: [id number] Mvi, Adult No.4 with Vit 330 60 K 10 ml Trace (Conc-1Ml/ Dose) 1 ml Calcium Gluconate 1 gm In Amino Acid 4.25%-D10w+Lytes*E* 1,000 ml @ 30 mls/hr IV . Q24H [facility] Rx#:[id number] Piperacillin-Tazobactam 3 75 .375 gm In Sodium Chloride 0.9% 100 ml @ 25 mls/hr IVPB Q8H [facility] Rx#: [id number] Potassium Chloride 20 meq 100 In Water For Injection 1 100ml.bag @ 50 mls/hr IVPB Q2H [facility] Rx#: [id number] Pressure Bags 66 12 Intake, IV Titration 3966.416 672.449 30.183 Amount Calcium Gluconate 1 gm In 30 30 Amino Acid 4.25%-D10w+ Lytes*E* 1,000 ml @ 59 mls/hr IV .BY DURATION [facility] Rx#:[id number] Dextrose 5% in Water 1, 1125 000 ml @ 75 mls/hr IV . [id number] [facility] with Sodium Bicarb (1 Meq/ml) 150 ml Rx#:[id number] Mvi, Adult No.4 with Vit 60 K 10 ml Trace (Conc-1Ml/ Dose) 1 ml Calcium Gluconate 1 gm In Amino Acid 4.25%-D10w+Lytes*E* 1,000 ml @ 30 mls/hr IV . Q24H [facility] Rx#:[id number] Norepinephrine 8 mg In 513.980 357.502 30.183 Sodium Chloride 0.9% 250 ml @ 0.03 MCG/KG/MIN 4. 766 mls/hr IV .Q24H [facility] Rx#:[id number] Sodium Chloride 0.9% 1, 1000 000 ml @ 0 mls/hr IV .STK -MED ONE Rx#:[id number] Sodium Chloride 0.9% 1, 1000 000 ml @ 999 mls/hr IV . Q1H1M [facility] Rx#:[id number] Vasopressin 20 unit In 31.135 Sodium Chloride 0.9% 50 ml @ 0.03 UNITS/MIN 4.59 mls/hr IV .[id number] [facility] Rx# :[id number] propofoL 1,000 mg In 237.436 253.812 Empty Bag 1 bag @ 15 MCG/ KG/MIN 7.389 mls/hr IV . [id number] [facility] Rx#:[id number] Output: Urine 2009 [id number] 460 Other: Voiding Method Indwelling Catheter Indwelling Catheter Indwelling Catheter ABP, PAP, CO, CI - Last Documented Arterial Blood Pressure 120/49 - Exam Gen. appearance the patient is calm comfortable, sedated on propofol cigarettes a mechanical ventilator. The patient has an orogastric and orotracheal tube are both of them are in place. Head exam was generally normal. There was no scleral icterus or corneal arcus. Mucous membranes were moist. Neck was supple and without jugular venous distension, thyromegaly, or carotid bruits. Carotids were easily palpable bilaterally. There was no adenopathy. The patient has a left IJ triple-lumen catheter in place. Lungs sounds are diminished bilaterally otherwise the breath sounds are equal and symmetrical and the patient is a thoracotomy scar over the anterior chest Cardiac exam revealed the PMI to be normally situated and sized. The rhythm was regular and no extrasystoles were noted during several minutes of auscultation. The first and second heart sounds were normal and physiologic splitting of the second heart sound was noted. There were no murmurs, rubs, clicks, or gallops. Abdomen shows a colostomy in the left upper quadrant. The colon tissue is pink and viable. No output yet. The patient has a open midabdominal incision with serosanguineous/bloody fluid seeping from the wound surface. Retention sutures are in place. No direct tenderness. No rebound tenderness. Absent bowel sounds. Patient has scrotal edema. Extremities revealed +1 pitting edema, no cyanosis or clubbing Neurological sedated - Labs CBC & Chem 7: 04/19/22 03:55 04/19/22 03:55 Labs: Abnormal Lab Results - Last 24 Hours (Table) 04/17/22 04/18/22 04/18/22 Range/Units 15:17 07:10 12:31 RBC (4.30-5.90) m/uL Hgb (13.0-17.5) gm/dL Hct (39.0-53.0) % MCHC (31.0-37.0) g/dL RDW (11.5-15.5) % Neutrophils # (1.3-7.7) k/uL Lymphocytes # (1.0-4.8) k/uL ABG HCO3 (21-25) mmol/L ABG Total CO2 (19-24) mmol/L ABG O2 Saturation (94-97) % Potassium (3.5-5.1) mmol/L BUN (9-20) mg/dL Creatinine (0.66-1.25) mg/dL Glucose (74-99) mg/dL POC Glucose (mg/dL) 242 H (70-110) mg/dL Calcium (8.4-10.2) mg/dL Ionized Calcium Sridevi 4.1 L (4.5-5.3) mg/dL Magnesium (1.6-2.3) mg/dL Total Protein (6.3-8.2) g/dL Albumin (3.5-5.0) g/dL Triglycerides (0.00-149.00) mg/dL Crossmatch See Detail 04/18/22 04/18/22 04/18/22 Range/Units 12:32 17:46 23:26 RBC (4.30-5.90) m/uL Hgb (13.0-17.5) gm/dL Hct (39.0-53.0) % MCHC (31.0-37.0) g/dL RDW (11.5-15.5) % Neutrophils # (1.3-7.7) k/uL Lymphocytes # (1.0-4.8) k/uL ABG HCO3 (21-25) mmol/L ABG Total CO2 (19-24) mmol/L ABG O2 Saturation (94-97) % Potassium (3.5-5.1) mmol/L BUN (9-20) mg/dL Creatinine (0.66-1.25) mg/dL Glucose (74-99) mg/dL POC Glucose (mg/dL) 220 H 213 H (70-110) mg/dL Calcium (8.4-10.2) mg/dL Ionized Calcium Sridevi (4.5-5.3) mg/dL Magnesium (1.6-2.3) mg/dL Total Protein (6.3-8.2) g/dL Albumin (3.5-5.0) g/dL Triglycerides 162.00 H (0.00-149.00) mg/dL Crossmatch 04/19/22 04/19/22 04/19/22 Range/Units 03:55 03:55 03:55 RBC 3.20 L (4.30-5.90) m/uL Hgb 8.2 L (13.0-17.5) gm/dL Hct 26.4 L (39.0-53.0) % MCHC 30.9 L (31.0-37.0) g/dL RDW 19.1 H (11.5-15.5) % Neutrophils # 7.8 H (1.3-7.7) k/uL Lymphocytes # 0.7 L (1.0-4.8) k/uL ABG HCO3 (21-25) mmol/L ABG Total CO2 (19-24) mmol/L ABG O2 Saturation (94-97) % Potassium 3.0 L (3.5-5.1) mmol/L BUN 29 H (9-20) mg/dL Creatinine 1.56 H (0.66-1.25) mg/dL Glucose 221 H (74-99) mg/dL POC Glucose (mg/dL) (70-110) mg/dL Calcium 6.4 L* (8.4-10.2) mg/dL Ionized Calcium Sridevi 4.2 L (4.5-5.3) mg/dL Magnesium 1.5 L (1.6-2.3) mg/dL Total Protein 4.2 L (6.3-8.2) g/dL Albumin 2.1 L (3.5-5.0) g/dL Triglycerides (0.00-149.00) mg/dL Crossmatch 04/19/22 04/19/22 Range/Units 05:30 06:00 RBC (4.30-5.90) m/uL Hgb (13.0-17.5) gm/dL Hct (39.0-53.0) % MCHC (31.0-37.0) g/dL RDW (11.5-15.5) % Neutrophils # (1.3-7.7) k/uL Lymphocytes # (1.0-4.8) k/uL ABG HCO3 27 H (21-25) mmol/L ABG Total CO2 28 H (19-24) mmol/L ABG O2 Saturation 98.1 H (94-97) % Potassium (3.5-5.1) mmol/L BUN (9-20) mg/dL Creatinine (0.66-1.25) mg/dL Glucose (74-99) mg/dL POC Glucose (mg/dL) 261 H (70-110) mg/dL Calcium (8.4-10.2) mg/dL Ionized Calcium Sridevi (4.5-5.3) mg/dL Magnesium (1.6-2.3) mg/dL Total Protein (6.3-8.2) g/dL Albumin (3.5-5.0) g/dL Triglycerides (0.00-149.00) mg/dL Crossmatch Microbiology - Last 24 Hours (Table) 04/17/22 19:00 Blood Culture - Preliminary Blood No Growth after 24 hours 04/17/22 09:10 Gram Stain - Final Abdomen Wound Culture - Final Assessment and Plan Plan: Acute abdomen secondary to anastomotic leak following a sigmoid resection and low AP resection that was performed on 04/13/2022. The patient was taken to the operating room for expiratory laparotomy on 04/17/2022 and the patient had left colectomy and diverting colostomy. Patient is postop day #2 following his second surgery which involved extensive laparotomy, and colostomy. Shock, likely septic in nature secondary to intra-abdominal sepsis, currently on fluids and pressors and the patient is on norepinephrine running at 0.1 mcg/kg/m of norepinephrine the patient is also on physiologic dose of vasopressin. Patient is covered with antibiotics and the patient is currently on IV Zosyn. Cultures are still pending for now. Acute hypoxic respiratory failure, currently intubated on a mechanical ventilator, chest x-ray showing breath and pleural effusions worse on the right Sigmoid colon mass, obstructive, post low AP resection performed on 04/13/2022 Anastomotic leak with necrosis of the level of the anastomosis, post colectomy and diverting colostomy on 04/17/2022 Coronary artery disease with previous coronary artery bypass surgery and previous coronary stenting Chronic kidney disease, stage III with a component of an acute kidney injury on top of his chronic kidney disease. Patient's creatinine is stable at 1.6. 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 The patient was having GI bleed secondary to colon cancer and subsequently he may have had some intraoperative loss of blood and there may be some dilutional anemia secondary to aggressive fluid resuscitation Diabetes mellitus Hyperlipidemia Hypoproteinemia secondary to above and the patient has third spacing, anasarca and scrotal edema Valvular heart disease with normal biventricular function. The patient has moderate degree of mitral regurgitation severe pulmonary hypertension and severe tricuspid regurgitation COPD maintain on Advair on outpatient basis BPH Plan Keep the patient on mechanical ventilator necessary ventilator changes were done TPN was initiated for nutritional support Discontinue the bicarb infusion IV fluids are KVO Chest x-ray and blood gases were noted Abdominal wound has been noted and will continue our dressing change Monitor output from the colostomy Titrate norepinephrine doses and continue to physiologic dose of vasopressin Continue IV Zosyn Awaiting intra-abdominal cultures from the abdominal washout. Blood cultures are negative for now Continue IV Pepcid Change Levemir insulin to 25 unitsunits and use sliding scale insulin coverage Monitor CVP We'll continue to follow Condition remains critical Not ready for weaning and extubation at this point especially with his underlying hemodynamic instability. The cardiac care evaluation was done in more than 30 minutes Time with Patient: Greater than 30
--- NOTE | 2022-04-19 08:53 | P.PN ---
Subjective Progress Note Date: 04/19/22 Principal diagnosis: This is a 72-year-old male followed up in consultation with acute kidney injury, secondary to urinary retention and ATN. Initially admitted with short of breath, anemia of 6.9. Found to have a sigmoid mass and underwent low anterior resection on 04/13/2022, and has a colostomy. He was intubated on levo fed bicarbonate drip. Vital signs are stable urine ou tput is 3805, total intake is 7.2 L He is maintained on vasopressin and levo fed and an attempt to taper him off was not very successful. He is also on TPN. Intubated on 40% FiO2 Creatinine is improving from peak of 2.86 on 04/15/2022 to 1.66 yesterday and 1.56 this morning He is known with coronary artery disease COPD diabetes Objective - Vital Signs Vital signs: Vital Signs Temp 99.6 F 04/19/22 08:00 Pulse 89 04/19/22 08:00 Resp 22 04/19/22 08:00 BP 134/43 04/18/22 17:00 Pulse Ox 95 04/19/22 08:00 FiO2 40 04/19/22 08:00 Intake & Output 04/18/22 04/19/22 04/19/22 18:59 06:59 18:59 Intake Total 4038.416 3194.449 463.790 Output Total 2009 1795 385 Balance 2028.416 1399.449 78.790 Weight 94 kg 103.6 kg Intake: IV 72 2522 442 0.9% @ KVO 220 20 ACETAMINOPHEN IV (For NPO 1000 ) 1,000 mg In Empty Bag 1 bag @ 400 mls/hr IVPB Q6HR PRN Rx#:[id number] ART 36 3 CVP 36 3 Dextrose 5% in Water 1, 825 150 000 ml @ 75 mls/hr IV . [id number] [facility] with Sodium Bicarb (1 Meq/ml) 150 ml Rx#:[id number] Magnesium Sulfate-D5w Pmx 100 1 gm In Dextrose/Water 1 100ml.bag @ 100 mls/hr IVPB Q1H [facility] Rx#: [id number] Mvi, Adult No.4 with Vit 330 60 K 10 ml Trace (Conc-1Ml/ Dose) 1 ml Calcium Gluconate 1 gm In Amino Acid 4.25%-D10w+Lytes*E* 1,000 ml @ 30 mls/hr IV . Q24H [facility] Rx#:[id number] Piperacillin-Tazobactam 3 75 .375 gm In Sodium Chloride 0.9% 100 ml @ 25 mls/hr IVPB Q8H [facility] Rx#: [id number] Potassium Chloride 20 meq 100 In Water For Injection 1 100ml.bag @ 50 mls/hr IVPB Q2H [facility] Rx#: [id number] Pressure Bags 66 12 Intake, IV Titration 3966.416 672.449 21.790 Amount Calcium Gluconate 1 gm In 30 30 Amino Acid 4.25%-D10w+ Lytes*E* 1,000 ml @ 59 mls/hr IV .BY DURATION [facility] Rx#:[id number] Dextrose 5% in Water 1, 1125 000 ml @ 75 mls/hr IV . [id number] [facility] with Sodium Bicarb (1 Meq/ml) 150 ml Rx#:[id number] [facility]vi, Adult No.4 with Vit 60 K 10 ml Trace (Conc-1Ml/ Dose) 1 ml Calcium Gluconate 1 gm In Amino Acid 4.25%-D10w+Lytes*E* 1,000 ml @ 30 mls/hr IV . Q24H [facility] Rx#:[id number] Norepinephrine 8 mg In 513.980 357.502 21.790 Sodium Chloride 0.9% 250 ml @ 0.03 MCG/KG/MIN 4. 766 mls/hr IV .Q24H [facility] Rx#:[id number] Sodium Chloride 0.9% 1, 1000 000 ml @ 0 mls/hr IV .STK -MED ONE Rx#:[id number] Sodium Chloride 0.9% 1, 1000 000 ml @ 999 mls/hr IV . Q1H1M [facility] Rx#:[id number] Vasopressin 20 unit In 31.135 Sodium Chloride 0.9% 50 ml @ 0.03 UNITS/MIN 4.59 mls/hr IV .Q11H7M [facility] Rx# :[id number] propofoL 1,000 mg In 237.436 253.812 Empty Bag 1 bag @ 15 MCG/ KG/MIN 7.389 mls/hr IV . [id number] [facility] Rx#:[id number] Output: Urine 2009 1795 385 Other: Voiding Method Indwelling Catheter Indwelling Catheter Indwelling Catheter ABP, PAP, CO, CI - Last Documented Arterial Blood Pressure 120/49 Intubated on the vent on 40% FiO2 on levo fed and vasopressin No facial asymmetry noted Lungs clear to auscultation fair air entry Heart sounds unremarkable Abdomen soft colostomy Extremity exam trace edema Neurologically obtunded. - Labs CBC & Chem 7: 04/19/22 03:55 04/19/22 03:55 Labs: Abnormal Lab Results - Last 24 Hours (Table) 04/17/22 04/18/22 04/18/22 Range/Units 15:17 07:10 12:31 RBC (4.30-5.90) m/uL Hgb (13.0-17.5) gm/dL Hct (39.0-53.0) % MCHC (31.0-37.0) g/dL RDW (11.5-15.5) % Neutrophils # (1.3-7.7) k/uL Lymphocytes # (1.0-4.8) k/uL ABG HCO3 (21-25) mmol/L ABG Total CO2 (19-24) mmol/L ABG O2 Saturation (94-97) % Potassium (3.5-5.1) mmol/L BUN (9-20) mg/dL Creatinine (0.66-1.25) mg/dL Glucose (74-99) mg/dL POC Glucose (mg/dL) 242 H (70-110) mg/dL Calcium (8.4-10.2) mg/dL Ionized Calcium Sridevi 4.1 L (4.5-5.3) mg/dL Magnesium (1.6-2.3) mg/dL Total Protein (6.3-8.2) g/dL Albumin (3.5-5.0) g/dL Triglycerides (0.00-149.00) mg/dL Crossmatch See Detail 04/18/22 04/18/22 04/18/22 Range/Units 12:32 17:46 23:26 RBC (4.30-5.90) m/uL Hgb (13.0-17.5) gm/dL Hct (39.0-53.0) % MCHC (31.0-37.0) g/dL RDW (11.5-15.5) % Neutrophils # (1.3-7.7) k/uL Lymphocytes # (1.0-4.8) k/uL ABG HCO3 (21-25) mmol/L ABG Total CO2 (19-24) mmol/L ABG O2 Saturation (94-97) % Potassium (3.5-5.1) mmol/L BUN (9-20) mg/dL Creatinine (0.66-1.25) mg/dL Glucose (74-99) mg/dL POC Glucose (mg/dL) 220 H 213 H (70-110) mg/dL Calcium (8.4-10.2) mg/dL Ionized Calcium Sridevi (4.5-5.3) mg/dL Magnesium (1.6-2.3) mg/dL Total Protein (6.3-8.2) g/dL Albumin (3.5-5.0) g/dL Triglycerides 162.00 H (0.00-149.00) mg/dL Crossmatch 04/19/22 04/19/22 04/19/22 Range/Units 03:55 03:55 03:55 RBC 3.20 L (4.30-5.90) m/uL Hgb 8.2 L (13.0-17.5) gm/dL Hct 26.4 L (39.0-53.0) % MCHC 30.9 L (31.0-37.0) g/dL RDW 19.1 H (11.5-15.5) % Neutrophils # 7.8 H (1.3-7.7) k/uL Lymphocytes # 0.7 L (1.0-4.8) k/uL ABG HCO3 (21-25) mmol/L ABG Total CO2 (19-24) mmol/L ABG O2 Saturation (94-97) % Potassium 3.0 L (3.5-5.1) mmol/L BUN 29 H (9-20) mg/dL Creatinine 1.56 H (0.66-1.25) mg/dL Glucose 221 H (74-99) mg/dL POC Glucose (mg/dL) (70-110) mg/dL Calcium 6.4 L* (8.4-10.2) mg/dL Ionized Calcium Sridevi 4.2 L (4.5-5.3) mg/dL Magnesium 1.5 L (1.6-2.3) mg/dL Total Protein 4.2 L (6.3-8.2) g/dL Albumin 2.1 L (3.5-5.0) g/dL Triglycerides (0.00-149.00) mg/dL Crossmatch 04/19/22 04/19/22 Range/Units 05:30 06:00 RBC (4.30-5.90) m/uL Hgb (13.0-17.5) gm/dL Hct (39.0-53.0) % MCHC (31.0-37.0) g/dL RDW (11.5-15.5) % Neutrophils # (1.3-7.7) k/uL Lymphocytes # (1.0-4.8) k/uL ABG HCO3 27 H (21-25) mmol/L ABG Total CO2 28 H (19-24) mmol/L ABG O2 Saturation 98.1 H (94-97) % Potassium (3.5-5.1) mmol/L BUN (9-20) mg/dL Creatinine (0.66-1.25) mg/dL Glucose (74-99) mg/dL POC Glucose (mg/dL) 261 H (70-110) mg/dL Calcium (8.4-10.2) mg/dL Ionized Calcium Sridevi (4.5-5.3) mg/dL Magnesium (1.6-2.3) mg/dL Total Protein (6.3-8.2) g/dL Albumin (3.5-5.0) g/dL Triglycerides (0.00-149.00) mg/dL Crossmatch Microbiology - Last 24 Hours (Table) 04/17/22 19:00 Blood Culture - Preliminary Blood No Growth after 24 hours 04/17/22 09:10 Gram Stain - Final Abdomen Wound Culture - Final Assessment and Plan Plan: Impression 1. Acute kidney injury secondary to urinary retention and ATN. Creatinine peaked at 2.86 but improved to 1.5 this morning. 2. Sigmoid mass and GI bleeding with severe anemia. Status post exploratory lap and colostomy 04/17/2022 3. When dependent respiratory failure on 40% FiO2 no 4. On vasopressin and Levophed. 5. Status post coronary artery bypass graft remote 6. Mild hypokalemia secondary to diuresis 7. Metabolic acidosis resolved currently on bicarb drip. Recommendation 1. Replace potassium will need approximately 80 mEq. May be given via NG tube, and increase potassium in the TPN 2. Discontinue sodium bicarb drip. 3. Maintain Bo catheter for right now 4. Monitor labs
[2022-04-19] MEDS: VASOPRESSIN 20 UNIT in SODIUM CHLORIDE 0.9% 50 ML IV SCH ×2 (10:10→21:22)
[2022-04-19 11:08] LABS: Glucose,Whole Blood 270 mg/dL (70-110)
--- NOTE | 2022-04-19 14:22 | P.PN ---
Subjective Progress Note Date: 04/19/22 Patient is a 72-year-old male with a known history of coronary artery disease status post CABG and recent stent placement in February 2022 initially presented to ER with complaints of shortness of breath and exertional dyspnea. Patient initially thought it was due to his heart condition and went to ER. Patient was found to have a hemoglobin of 6.9 and received 1 unit of PRBC. Patient was tested positive for FOBT. Patient is also taking aspirin and Plavix from recent stent placement. Patient also states that he has been taking Motrin for the last couple of weeks for his neuropathy pain in his feet. Denies any complaints of hematemesis dark-colored stools. Patient was transferred to [facility] for GI evaluation. On admission WBC 4.4 hemoglobin 7.5 MCV 79.7 and platelets 243 Sodium 143 potassium 4.2 chloride 101 bicarb is 19 BUN 25 and creatinine 1.72 Calcium 7.4 04/11/2022 Patient is currently resting in bed. Awake alert and oriented x3. No complaints of chest pain or shortness of breath. Otherwise underwent EGD and colonoscopy today. EGD showed moderate size hiatal hernia but no evidence of esophagitis or peptic ulcer disease. No evidence of GI bleed. Colonoscopy showed a) Near circumferential sigmoid colon mass at 28 cm from the anal verge status post multiple biopsies followed by tattooing with Aiyana ink b) 5 mm rectal polyp status post polypectomy General surgery was consulted and follow-up biopsy report.. Hemoglobin is stable at 8.6 otherwise. Denies any complaints of nausea or vomiting. Patient was started on clear liquid diet and follow H&H. 04/12/2022 Patient is currently resting in the bed. Awake alert and oriented x3. No complaints of chest pain or shortness of breath. No nausea vomiting abdominal pain or diarrhea. No cough or sputum production. Patient was seen by general surgery and is planning for or tomorrow. Antiplatelets on hold. Laboratory data reviewed. Patient is being current on iron supplementation Protonix IV push daily. 04/13/2022 Patient is currently lying in bed. Awake alert and oriented. Pain is fairly controlled. Status post low anterior resection of the sigmoid colon. Postoperative day 0 No fever no chills. Currently on room air. No nausea vomiting or diarrhea. Laboratory data showed WBC 5.3 hemoglobin 7.7 platelets 216 sodium 140 potassium 3.8 chloride 106 bicarb is 22 BUN 16 and creatinine 1.69. Calcium 7.5. General surgery and cardiology is on board. 04/14/2022 Patient is evaluated today sitting up in chair currently postoperative day #1 low anterior resection for sigmoid colon mass with pathology currently pending at this time. Patient is currently on clear liquid diet. Not passing gas yet and no BM. Reports controlled incisional abdominal pain. Wound vac is in place and intact. Patient is currently on D5 0.45 normal saline with potassium. Creatinine is up to 2.0 today. 04/15/2022 Patient is evaluated today on stepdown unit currently postoperative day #2 sigmoid colon resection. Aspirin and plavix remain on hold. Cardiology following closely. Blood pressure has improved to 139/71 today. Indwelling catheter removed yesterday afternoon, patient has issues with urinary retention overnight and for this reason normal saline was placed on hold. Patient has been unable to void and urinary strait cath was unable to produce urine. Bladder scan today showing 70 mls in urinary bladder. Creatinine is up to 2.86 today. Urology has been consulted for placement of urinary catheter and IV fluids have been resumed at an increased rate. Continues on clear liquid diet. Reports abdominal pain is controlled today. Blood glucose has been increased and insulin has been added. Remains afebrile, heart rate 72, blood pressure 120/68, 92% room air. 04/16/2022 Patient is evaluated on medical floor. he is postoperative day #3 sigmoid colon resection. Patient had urinary catheter placed by urology for urinary retention. Overnight has had 225 mLs of urine output, he is continued on normal saline at 125 mls/hr. Creatinine today has improved 2.29. Sodium up to 134. Renal ultrasound has been ordered and will repeat labs in AM. Patient had a bowel movement today he reports. He has some abdominal distention, states he is not passing much gas and feels bloated. Hemodynamically stable. 04/17/2022 Patient is evaluated on medical floor. Patients abdomen appears more distended with increased shortness of breath. He is postoperative day #4 low anterior resection of sigmoid colon secondary to mass. 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 He had chest xray completed with report called by radiology with large amount of free intraperitoneal air and bilateral infiltrate and small effusion. Correlate for mild venous congestion. Abdominal pelvis CT was ordered and results showing moderate to large amount of free intraperitoneal air may be related to patients interval surgery and colonic resection. Moderate bilateral pleural effusions, small amount of ascites around the liver, body wall edema, large hiatal hernia. Patient will undergo exploratory laporatomy today. Patient was noted to have purulent drainage from wound vac and also from midline incision which was cultured and patient was started on antibiotics. Blood cultures will be taken as well. Patient has been hydrated overnight with normal saline and creatinine has improved to 2.0, however his urine output remains marginal with 600 mls in the last 24 hours from indwelling urinary catheter. Renal ultrasound showing possible mild thinning of left renal cortex correlate for chronic medical renal disease with no hydronephrosis or nephrolisthiasis. Labs today showing white count 7.98, hgb 7.1, platelets 97, sodium 138, potassium 4.7, BUN 36.3, creatinine 2.0. Urinalysis negative. Patient is afebrile, heart rate 78, blood pressure 142/63, 100% on 3L nasal cannula. 04/18/2022 Patient is evaluated in the intensive care unit currently intubated on mechanical ventilator and sedated. Patient was found to have free air in the abdomen and was taken for exploratory laporatomy yesterday and was found to have ischemic bowel. Patient had take down of the anastamosis and colectomy, washout of abdomen and colostomy left upper quadrant. Patient was taken from the OR and admitted to the intensive care unit. Patient is evaluated today postoperative day #1, and also postoperative day #5 low anterior resection. Patient has OG tube in place with 200 mls of gastric output total which brown in color with black noted in the collection cannister. He did receive 2 units of PRBCs and hemoglobin is stable today at 8.4. He received 1 unit of PRBC on admission as well. He continues on aspirin 81 mg daily and plavix remains on hold. Cardiology following. Patient had ABGs done today showing pH of 7.38, pCO2 of 34, pO2 of 120 HCO3 of 20. He will continue to remain on mechanical ventilator overnight. Blood pressure remains on the lower side and patient is currently on lovephed running at 0.28 mcg/kg/min. Nephrology is following and patient continues on bicarbonate gtt running at 75 mls/hr. Chest xray today reports persistent areas of consolidation pleural effusion correlate for CHF, superimposed pneumonia not excluded. Blood culture and wound cultures are pending and patient has been started on IV zosyn. Patient will be started on TPN today. He is sedated with propofol. Surgical site is examined with retention sutures in place covered with ABD dressing. Additionally patient has LUQ colostomy in place with stoma showing no signs of necrosis and there is small amt of brown liquid stool in ostomy. Labs today showing white count of 7.5, hgb 8.4, sodium 134, potassium 3.7, BUN 32, creatinine 1.66, blood glucose 242, calcium 6.4, phosphorous 3.3, magnesium 1.8, albumin 2.2. Patient has temp of 100.7 today, heart rate 82, blood pressure 99/43, and oxygen saturation of 98% on mechanical ventilator with 40% FiO2. 04/19/2022 Patient is evaluated in the intensive care unit. He is currently intubated on mechanical ventilator with FiO2 of 40% He is receiving TPN. He is sedated with propofol. He is requiring levophed and vasopressin has been added. Blood pressures are improved into the 120s systolic. Creatinine has also improved to 1.56. Blood culture and wound culture are pending and IV zosyn is continued. Chest xray today showing cardiomegaly with pulmonary vascular congestion and bilateral pleural effusions. IV bicarb has been discontinued. Scrotal edema is increased and patient has generalized peripheral edema as well. There is NG tube in place with minimal output and continues to be black/dark brown in color. Patient has watery output from ostomy. Retention sutures are removed and abdomen is open and has some sanguineous drainage. He appears comfortable. Urine output has increased. IV tylenol in place for fever. Unable to complete review of systems patient is intubated and sedated. PHYSICAL EXAMINATION: Patient is evaluated in ICU intubated and sedated. HEENT: Normocephalic. Neck is supple. Pupils reactive. Nostrils clear. Oral cavity is moist. Neck reveals no JVD, carotid bruits, or thyromegaly. CHEST EXAMINATION: Trachea is central. Symmetrical expansion. Lung escalante clear to auscultation and percussion. CARDIAC: Normal S1, S2 with no gallops. No murmurs ABDOMEN: Non distended with sluggish bowel sounds, LUQ ostomy in place with li quidy output. Gauze packing to open abdominal wound. . Extremities: reveal no edema. No clubbing or cyanosis Neurologically awake, alert, oriented x3 with well-coordinated movements. No focal deficits noted Skin: No rash or skin lesions. Lower extremity edema and significant scrotal edema. Psychiatric: unable to assess at this time Musculoskeletal: No joint swelling or deformity. Assessment and Plan Assessment Sigmoid colon mass status post low anterior resection postoperative day #6 with 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 Anastomotic leak and ischemic bowel following low anterior resection patient is currently postoperative day #2 abdominal washout, takedown of anastamosis with left colectomy and colostomy formation LUQ. Shock likely septic shock secondary to above and requiring vasopressor support and ICU care Acute hypoxic respiratory failure currently intubated on mechanical ventilator Acute blood loss anemia from GI bleed secondary to sigmoid colon mass. Patient received 1 unit PRBC on admission. Acute kidney injury prerenal with acute tubular necrosis, improving Postoperative urinary retention with indwelling catheter placed Microcytic anemia with iron deficiency. Hyperglycemia Coronary artery disease with history of stent placement in February 2022 Coronary artery disease history of CABG GI and DVT prophylaxis with SCDs Full Code Plan: Continue mechanical ventilator per impress associate Patient continues on vasopressor support and sedation, patient continues on levophed and vasopressin. Cultures are pending and patient continues on IV zosyn IV bicarbonate has been discontinued. Monitor H&H closely. Transfusion of hemoglobin less than 7. Plavix remains on hold Continue on TPN currently running at 30ml/hr and insulin dosing has been increased and continue to monitor blood glucose Q6h. Multiple consultations following including nephrology, urology, cardiology, general surgery, pulmonary impress associate Repeat labs in AM Condition remains guarded. The impression and plan of care has been dictated by Carmita Johnson, Nurse Practitioner as directed. Dr. Akbar MD I have performed a history and physical examination and medical decision making of this patient, discussed the same with the dictator, and agree with the dictators assessment and plan as written, documented as a scribe. Based on total visit time, I have performed more than 50% of this visit. Objective - Vital Signs Vital signs: Vital Signs Temp 99.8 F H 04/19/22 11:30 Pulse 87 04/19/22 13:15 Resp 21 04/19/22 13:15 BP 134/43 04/18/22 17:00 Pulse Ox 95 04/19/22 13:15 FiO2 40 04/19/22 13:00 Intake & Output 04/18/22 04/19/22 04/19/22 18:59 06:59 18:59 Intake Total 4038.416 3194.449 895.699 Output Total 2009 1795 1330 Balance 2028.416 1399.449 -434.301 Weight 94 kg 103.6 kg Intake: IV 72 2522 652 0.9 80 0.9% @ KVO 220 20 ACETAMINOPHEN IV (For NPO 1000 ) 1,000 mg In Empty Bag 1 bag @ 400 mls/hr IVPB Q6HR PRN Rx#:[id number] ART 36 3 CVP 36 3 Dextrose 5% in Water 1, 825 150 000 ml @ 75 mls/hr IV . [id number] HAILEY with Sodium Bicarb (1 Meq/ml) 150 ml Rx#:[id number] Magnesium Sulfate-D5w Pmx 200 1 gm In Dextrose/Water 1 100ml.bag @ 100 mls/hr IVPB Q1H [facility] Rx#: [id number] Mvi, Adult No.4 with Vit 330 60 K 10 ml Trace (Conc-1Ml/ Dose) 1 ml Calcium Gluconate 1 gm In Amino Acid 4.25%-D10w+Lytes*E* 1,000 ml @ 30 mls/hr IV . Q24H ONE Rx#:[id number] Piperacillin-Tazobactam 3 75 .375 gm In Sodium Chloride 0.9% 100 ml @ 25 mls/hr IVPB Q8H [facility] Rx#: [id number] Potassium Chloride 20 meq 100 In Water For Injection 1 100ml.bag @ 50 mls/hr IVPB Q2H [facility] Rx#: [id number] Pressure Bags 66 42 Intake, IV Titration 3966.416 672.449 243.699 Amount Calcium Gluconate 1 gm In 30 30 Amino Acid 4.25%-D10w+ Lytes*E* 1,000 ml @ 59 mls/hr IV .BY DURATION [facility] Rx#:[id number] Dextrose 5% in Water 1, 1125 000 ml @ 75 mls/hr IV . [id number] HAILEY with Sodium Bicarb (1 Meq/ml) 150 ml Rx#:[id number] Mvi, Adult No.4 with Vit 60 K 10 ml Trace (Conc-1Ml/ Dose) 1 ml Calcium Gluconate 1 gm In Amino Acid 4.25%-D10w+Lytes*E* 1,000 ml @ 30 mls/hr IV . Q24H ONE Rx#:[id number] Norepinephrine 8 mg In 513.980 357.502 94.204 Sodium Chloride 0.9% 250 ml @ 0.03 MCG/KG/MIN 4. 766 mls/hr IV .Q24H [facility] Rx#:[id number] Sodium Chloride 0.9% 1, 1000 000 ml @ 0 mls/hr IV .STK -MED ONE Rx#:[id number] Sodium Chloride 0.9% 1, 1000 000 ml @ 999 mls/hr IV . Q1H1M ONE Rx#:[id number] Vasopressin 20 unit In 31.135 49.495 Sodium Chloride 0.9% 50 ml @ 0.03 UNITS/MIN 4.59 mls/hr IV .[id number] [facility] Rx# :[id number] propofoL 1,000 mg In 237.436 253.812 100 Empty Bag 1 bag @ 15 MCG/ KG/MIN 7.389 mls/hr IV . [id number] [facility] Rx#:[id number] Output: Urine 2009 1795 1330 Other: Voiding Method Indwelling Catheter Indwelling Catheter Indwelling Catheter ABP, PAP, CO, CI - Last Documented Arterial Blood Pressure 100/38 - Labs CBC & Chem 7: 04/19/22 03:55 04/19/22 03:55 Labs: Abnormal Lab Results - Last 24 Hours (Table) 04/17/22 04/18/22 04/18/22 Range/Units 15:17 12:32 17:46 RBC (4.30-5.90) m/uL Hgb (13.0-17.5) gm/dL Hct (39.0-53.0) % MCHC (31.0-37.0) g/dL RDW (11.5-15.5) % Neutrophils # (1.3-7.7) k/uL Lymphocytes # (1.0-4.8) k/uL ABG HCO3 (21-25) mmol/L ABG Total CO2 (19-24) mmol/L ABG O2 Saturation (94-97) % Potassium (3.5-5.1) mmol/L BUN (9-20) mg/dL Creatinine (0.66-1.25) mg/dL Glucose (74-99) mg/dL POC Glucose (mg/dL) 220 H (70-110) mg/dL Calcium (8.4-10.2) mg/dL Ionized Calcium Sridevi (4.5-5.3) mg/dL Magnesium (1.6-2.3) mg/dL Total Protein (6.3-8.2) g/dL Albumin (3.5-5.0) g/dL Triglycerides 162.00 H (0.00-149.00) mg/dL Crossmatch See Detail 04/18/22 04/19/22 04/19/22 Range/Units 23:26 03:55 03:55 RBC 3.20 L (4.30-5.90) m/uL Hgb 8.2 L (13.0-17.5) gm/dL Hct 26.4 L (39.0-53.0) % MCHC 30.9 L (31.0-37.0) g/dL RDW 19.1 H (11.5-15.5) % Neutrophils # 7.8 H (1.3-7.7) k/uL Lymphocytes # 0.7 L (1.0-4.8) k/uL ABG HCO3 (21-25) mmol/L ABG Total CO2 (19-24) mmol/L ABG O2 Saturation (94-97) % Potassium (3.5-5.1) mmol/L BUN (9-20) mg/dL Creatinine (0.66-1.25) mg/dL Glucose (74-99) mg/dL POC Glucose (mg/dL) 213 H (70-110) mg/dL Calcium (8.4-10.2) mg/dL Ionized Calcium Sridevi 4.2 L (4.5-5.3) mg/dL Magnesium (1.6-2.3) mg/dL Total Protein (6.3-8.2) g/dL Albumin (3.5-5.0) g/dL Triglycerides (0.00-149.00) mg/dL Crossmatch 04/19/22 04/19/22 04/19/22 Range/Units 03:55 05:30 06:00 RBC (4.30-5.90) m/uL Hgb (13.0-17.5) gm/dL Hct (39.0-53.0) % MCHC (31.0-37.0) g/dL RDW (11.5-15.5) % Neutrophils # (1.3-7.7) k/uL Lymphocytes # (1.0-4.8) k/uL ABG HCO3 27 H (21-25) mmol/L ABG Total CO2 28 H (19-24) mmol/L ABG O2 Saturation 98.1 H (94-97) % Potassium 3.0 L (3.5-5.1) mmol/L BUN 29 H (9-20) mg/dL Creatinine 1.56 H (0.66-1.25) mg/dL Glucose 221 H (74-99) mg/dL POC Glucose (mg/dL) 261 H (70-110) mg/dL Calcium 6.4 L* (8.4-10.2) mg/dL Ionized Calcium Sridevi (4.5-5.3) mg/dL Magnesium 1.5 L (1.6-2.3) mg/dL Total Protein 4.2 L (6.3-8.2) g/dL Albumin 2.1 L (3.5-5.0) g/dL Triglycerides (0.00-149.00) mg/dL Crossmatch 04/19/22 Range/Units 11:07 RBC (4.30-5.90) m/uL Hgb (13.0-17.5) gm/dL Hct (39.0-53.0) % MCHC (31.0-37.0) g/dL RDW (11.5-15.5) % Neutrophils # (1.3-7.7) k/uL Lymphocytes # (1.0-4.8) k/uL ABG HCO3 (21-25) mmol/L ABG Total CO2 (19-24) mmol/L ABG O2 Saturation (94-97) % Potassium (3.5-5.1) mmol/L BUN (9-20) mg/dL Creatinine (0.66-1.25) mg/dL Glucose (74-99) mg/dL POC Glucose (mg/dL) 270 H (70-110) mg/dL Calcium (8.4-10.2) mg/dL Ionized Calcium Sridevi (4.5-5.3) mg/dL Magnesium (1.6-2.3) mg/dL Total Protein (6.3-8.2) g/dL Albumin (3.5-5.0) g/dL Triglycerides (0.00-149.00) mg/dL Crossmatch Microbiology - Last 24 Hours (Table) 04/17/22 19:00 Blood Culture - Preliminary Blood No Growth after 24 hours 04/17/22 09:10 Gram Stain - Final Abdomen Wound Culture - Final Assessment and Plan Time with Patient: Less than 30
[2022-04-19 18:07] LABS: Glucose,Whole Blood 218 mg/dL (70-110)
--- NOTE | 2022-04-19 19:38 | P.PN ---
Subjective Progress Note Date: 04/19/22 CHIEF COMPLAINT: Sigmoid colon mass, anastomotic necrosis HISTORY OF PRESENT ILLNESS: The patient is a 72-year-old male initially presented to the emergency room with sigmoid colon status post low anterior resection 04/13/2022. He was taken back to operating room 04/17/2022 due to anastomotic necrosis now with colostomy. He is on full ventilatory support. ROS: No reports of nausea and vomiting. Temperature 102.1, fever. Pre-existing history of CABG, coronary artery disease. PHYSICAL EXAM: VITAL SIGNS: Reviewed CONSTITUTIONAL: Well developed and in no acute distress. EYES: Conjuctivae without sclera icterus. Extraocular movements grossly intact. HEAD, EARS, NOSE, THROAT: Moist buccal mucosa. Head is atraumatic, normocephalic. No nasal drainage. RESPIRATORY: Non-labored respirations and equal bilateral excursions. We will ventilatory support. CARDIOVASCULAR: Palpable 2+ radial pulses. ABDOMEN: Abdominal binder present. Dressing intact. MUSCULOSKELETAL: No gross deformity of the lower extremities noted. SKIN: Good skin turgor. Well perfused. NEUROLOGIC: Cranial nerves II through XII grossly intact. No focal or lateralizing signs. PSYCH: Sedated. CLINICAL LABS: Reviewed. WBC normal 9.5. Hemoglobin 8.5, anemia ASSESSMENT: 1. Sigmoid colon mass 2. Coronary artery disease status post CABG 3. Respiratory failure 4. Morbid obesity due to excess calories, BMI 39.2 5. Anemia PLAN: 1. Continue intensive care unit air with full ventilatory support 2. Monitor hemoglobin 3. Antibiotic management 4. Prognosis guarded Objective - Vital Signs Vital signs: Vital Signs Temp 99.4 F 04/19/22 16:00 Pulse 68 04/19/22 18:00 Resp 22 04/19/22 18:00 BP 134/43 04/18/22 17:00 Pulse Ox 95 04/19/22 18:00 FiO2 40 04/19/22 18:00 Intake & Output 04/19/22 04/19/22 04/20/22 06:59 18:59 07:59 Intake Total 3194.449 1264.526 Output Total 1795 1905 Balance 1399.449 -640.474 .227 Weight 103.6 kg Intake: IV 2522 990 0.9 180 0.9% @ KVO 220 20 ACETAMINOPHEN IV (For NPO 1000 ) 1,000 mg In Empty Bag 1 bag @ 400 mls/hr IVPB Q6HR PRN Rx#:[id number] ART 3 CVP 3 Calcium Gluconate 1 gm In 118 Amino Acid 4.25%-D10w+ Lytes*E* 1,000 ml @ 59 mls/hr IV .BY DURATION [facility] Rx#:[id number] Dextrose 5% in Water 1, 825 150 000 ml @ 75 mls/hr IV . [id number] [facility] with Sodium Bicarb (1 Meq/ml) 150 ml Rx#:[id number] Magnesium Sulfate-D5w Pmx 200 1 gm In Dextrose/Water 1 100ml.bag @ 100 mls/hr IVPB Q1H [facility] Rx#: [id number] Mvi, Adult No.4 with Vit 330 150 K 10 ml Trace (Conc-1Ml/ Dose) 1 ml Calcium Gluconate 1 gm In Amino Acid 4.25%-D10w+Lytes*E* 1,000 ml @ 30 mls/hr IV . Q24H [facility] Rx#:[id number] Piperacillin-Tazobactam 3 75 .375 gm In Sodium Chloride 0.9% 100 ml @ 25 mls/hr IVPB Q8H [facility] Rx#: [id number] Potassium Chloride 20 meq 100 In Water For Injection 1 100ml.bag @ 50 mls/hr IVPB Q2H [facility] Rx#: [id number] Pressure Bags 66 72 Intake, IV Titration 672.449 274.526 11.227 Amount Calcium Gluconate 1 gm In 30 Amino Acid 4.25%-D10w+ Lytes*E* 1,000 ml @ 59 mls/hr IV .BY DURATION [facility] Rx#:[id number] Norepinephrine 8 mg In 357.502 125.031 11.227 Sodium Chloride 0.9% 250 ml @ 0.03 MCG/KG/MIN 4. 766 mls/hr IV .Q24H [facility] Rx#:[id number] Vasopressin 20 unit In 31.135 49.495 Sodium Chloride 0.9% 50 ml @ 0.03 UNITS/MIN 4.59 mls/hr IV .Q11H7M [facility] Rx# :[id number] propofoL 1,000 mg In 253.812 100 Empty Bag 1 bag @ 15 MCG/ KG/MIN 7.389 mls/hr IV . [id number] [facility] Rx#:[id number] Output: Urine 9963 9499 Other: Voiding Method Indwelling Catheter Indwelling Catheter ABP, PAP, CO, CI - Last Documented Arterial Blood Pressure 106/39 - Labs CBC & Chem 7: 04/19/22 03:55 04/19/22 03:55 Labs: Abnormal Lab Results - Last 24 Hours (Table) 04/17/22 04/18/22 04/18/22 Range/Units 15:17 12:32 23:26 RBC (4.30-5.90) m/uL Hgb (13.0-17.5) gm/dL Hct (39.0-53.0) % MCHC (31.0-37.0) g/dL RDW (11.5-15.5) % Neutrophils # (1.3-7.7) k/uL Lymphocytes # (1.0-4.8) k/uL ABG HCO3 (21-25) mmol/L ABG Total CO2 (19-24) mmol/L ABG O2 Saturation (94-97) % Potassium (3.5-5.1) mmol/L BUN (9-20) mg/dL Creatinine (0.66-1.25) mg/dL Glucose (74-99) mg/dL POC Glucose (mg/dL) 213 H (70-110) mg/dL Calcium (8.4-10.2) mg/dL Ionized Calcium Sridevi (4.5-5.3) mg/dL Magnesium (1.6-2.3) mg/dL Total Protein (6.3-8.2) g/dL Albumin (3.5-5.0) g/dL Triglycerides 162.00 H (0.00-149.00) mg/dL Crossmatch See Detail 04/19/22 04/19/22 04/19/22 Range/Units 03:55 03:55 03:55 RBC 3.20 L (4.30-5.90) m/uL Hgb 8.2 L (13.0-17.5) gm/dL Hct 26.4 L (39.0-53.0) % MCHC 30.9 L (31.0-37.0) g/dL RDW 19.1 H (11.5-15.5) % Neutrophils # 7.8 H (1.3-7.7) k/uL Lymphocytes # 0.7 L (1.0-4.8) k/uL ABG HCO3 (21-25) mmol/L ABG Total CO2 (19-24) mmol/L ABG O2 Saturation (94-97) % Potassium 3.0 L (3.5-5.1) mmol/L BUN 29 H (9-20) mg/dL Creatinine 1.56 H (0.66-1.25) mg/dL Glucose 221 H (74-99) mg/dL POC Glucose (mg/dL) (70-110) mg/dL Calcium 6.4 L* (8.4-10.2) mg/dL Ionized Calcium Sridevi 4.2 L (4.5-5.3) mg/dL Magnesium 1.5 L (1.6-2.3) mg/dL Total Protein 4.2 L (6.3-8.2) g/dL Albumin 2.1 L (3.5-5.0) g/dL Triglycerides (0.00-149.00) mg/dL Crossmatch 04/19/22 04/19/22 04/19/22 Range/Units 05:30 06:00 11:07 RBC (4.30-5.90) m/uL Hgb (13.0-17.5) gm/dL Hct (39.0-53.0) % MCHC (31.0-37.0) g/dL RDW (11.5-15.5) % Neutrophils # (1.3-7.7) k/uL Lymphocytes # (1.0-4.8) k/uL ABG HCO3 27 H (21-25) mmol/L ABG Total CO2 28 H (19-24) mmol/L ABG O2 Saturation 98.1 H (94-97) % Potassium (3.5-5.1) mmol/L BUN (9-20) mg/dL Creatinine (0.66-1.25) mg/dL Glucose (74-99) mg/dL POC Glucose (mg/dL) 261 H 270 H (70-110) mg/dL Calcium (8.4-10.2) mg/dL Ionized Calcium Sridevi (4.5-5.3) mg/dL Magnesium (1.6-2.3) mg/dL Total Protein (6.3-8.2) g/dL Albumin (3.5-5.0) g/dL Triglycerides (0.00-149.00) mg/dL Crossmatch 04/19/22 Range/Units 18:06 RBC (4.30-5.90) m/uL Hgb (13.0-17.5) gm/dL Hct (39.0-53.0) % MCHC (31.0-37.0) g/dL RDW (11.5-15.5) % Neutrophils # (1.3-7.7) k/uL Lymphocytes # (1.0-4.8) k/uL ABG HCO3 (21-25) mmol/L ABG Total CO2 (19-24) mmol/L ABG O2 Saturation (94-97) % Potassium (3.5-5.1) mmol/L BUN (9-20) mg/dL Creatinine (0.66-1.25) mg/dL Glucose (74-99) mg/dL POC Glucose (mg/dL) 218 H (70-110) mg/dL Calcium (8.4-10.2) mg/dL Ionized Calcium Sridevi (4.5-5.3) mg/dL Magnesium (1.6-2.3) mg/dL Total Protein (6.3-8.2) g/dL Albumin (3.5-5.0) g/dL Triglycerides (0.00-149.00) mg/dL Crossmatch Microbiology - Last 24 Hours (Table) 04/17/22 19:00 Blood Culture - Preliminary Blood No Growth after 24 hours
[2022-04-19 20:01] LABS: Glucose,Whole Blood 215 mg/dL (70-110)
[2022-04-20] MEDS: ALBUTEROL NEBULIZED 2.5 MG/3 ML INHALATION SCH ×6 (00:17→20:32)
[2022-04-20] MEDS: IPRATROPIUM 0.5 MG/2.5 ML NEBU INHALATION SCH ×6 (00:17→20:32)
[2022-04-20] MEDS: PIPERACILLIN-TAZOBACTAM 3.375 GM in SODIUM CHLORIDE 0.9% 100 ML IVPB SCH ×3 (03:52→17:59)
[2022-04-20] MEDS: HEPARIN SODIUM,PORCINE/PF 5,000 UNIT/0.5 ML SYRINGE SQ SCH ×3 (03:52→16:31)
[2022-04-20 03:54] LABS: Glucose,Whole Blood 216 mg/dL (70-110)
[2022-04-20] MEDS: INSULIN ASPART (NovoLOG) 100 UNIT/ML VIAL SQ SCH ×4 (04:01→17:57)
[2022-04-20 05:35] LABS: ABG Base Excess 5.4 mmol/L; ABG HCO3 29 mmol/L (21-25); ABG Oxygen Saturation 97.2 % (94-97); ABG PCO2 39 mmHg (35-45); ABG PH 7.48 (7.35-7.45); ABG PO2 79 mmHg (83-108); ABG TCO2 30 mmol/L (19-24); Allen Test Performed? Yes
[2022-04-20 06:11] LABS: Anisocytosis Slight; Basophils % (A) 0 %; Eosinophils # (A) 0.3 k/uL (0-0.7); Eosinophils % (A) 4 %; HCT 24.6 % (39.0-53.0); HGB 7.5 gm/dL (13.0-17.5); Hypochromasia Marked; Lymphocytes # (A) 0.5 k/uL (1.0-4.8); Lymphocytes % (A) 6 %; MCH 25.1 pg (25.0-35.0); MCHC 30.5 g/dL (31.0-37.0); MCV 82.4 fL (80.0-100.0); Mean Platelet Volume 9.3; Microcytosis Slight; Monocytes # (A) 0.5 k/uL (0-1.0); Monocytes % (A) 6 %; Neutrophils # (A) 7.4 k/uL (1.3-7.7); Neutrophils % (A) 82 %; Platelet Count 204 k/uL (150-450); Poikilocytosis Moderate; RBC 2.98 m/uL (4.30-5.90); RDW 18.7 % (11.5-15.5)
[2022-04-20 06:13] LABS: Glucose,Whole Blood 221 mg/dL (70-110)
[2022-04-20 06:20] LABS: Calcium 6.9 mg/dL (8.4-10.2); Magnesium 1.8 mg/dL (1.6-2.3); Phosphorus 2.8 mg/dL (2.5-4.5); Potassium 2.9 mmol/L (3.5-5.1); Total Bilirubin 0.5 mg/dL (0.2-1.3); Total Protein 4.1 g/dL (6.3-8.2)
[2022-04-20] MEDS ORDERED: MAGNESIUM SULFATE-D5W PMX 1 GM in DEXTROSE/WATER 1 100ML.BAG IVPB ONE (07:00)
[2022-04-20] MEDS: POTASSIUM BICARBONATE/CIT AC 20 MEQ TABLET.EFF NG-TUBE SCH ×6 (07:12→13:15)
--- NOTE | 2022-04-20 08:00 | XR ---
EXAMINATION TYPE: XR chest 1V portable DATE OF EXAM: 04/20/2022 6:06 AM COMPARISON: Chest radiograph from one day prior. TECHNIQUE: XR chest 1V portable Portable AP radiograph of the chest. CLINICAL INDICATION:Male, 72 years old with history of Tube placement; FINDINGS: Lungs/Pleura: There is no evidence of focal consolidation, or pneumothorax. Bibasilar haziness likel y representing layering pleural effusions. Pulmonary vascularity: Unremarkable. Heart/mediastinum: Cardiomediastinal silhouette is unremarkable. Musculoskeletal: No acute osseous pathology. Midline sternotomy wires and surgical clips project over the mediastinum. Other findings: None Lines/Tubes: Endotracheal tube with distal tip 3.4 cm above the judah. Interval placement of nasogastric and side-port projecting under the diaphragm. Left internal jugular central venous catheter with distal tip at the cavoatrial junction. IMPRESSION: 1. Stable support tubes. 2. Similar cardiomegaly. 3. Suspected similar pleural effusions.
[2022-04-20] MEDS: INSULIN DETEMIR (LEVEMIR) 100 UNIT/ML SYR SQ SCH ×2 (08:10→20:00)
[2022-04-20] MEDS: SIMETHICONE 40 MG/0.6 ML DROPS 2,000 MG/30 ML BOTTLE PO SCH ×4 (08:10→22:11)
[2022-04-20] MEDS: FAMOTIDINE 20 MG/2 ML VIAL IV SCH (08:10)
[2022-04-20] MEDS: ATORVASTATIN 40 MG TAB PO SCH (08:10)
[2022-04-20] MEDS: CHLORHEXIDINE GLUCONATE 15 ML CUP MUCOUS MEM SCH ×2 (08:10→20:00)
[2022-04-20] MEDS: TAMSULOSIN 0.4 MG CAP.ER.24H PO SCH (08:10)
[2022-04-20] MEDS: ASPIRIN 81 MG PO SCH (08:10)
--- NOTE | 2022-04-20 09:20 | P.PN ---
Subjective Progress Note Date: 04/20/22 Principal diagnosis: This is a 72-year-old male followed up in consultation with acute kidney injury, secondary to urinary retention and ATN. Initially admitted with short of breath, anemia of 6.9. Found to have a sigmoid mass and underwent low anterior resection on 04/13/2022, and has a colostomy. Currently intubated 40% FiO2. Still requiring levo fed on and off. He is also on TPN. His also running low-grade temperature 100.4 last night and 99.6 this morning Creatinine is improving from peak of 2.86 on 04/15/2022 to 1.66 yesterday and 1.36 this morning. Urine output is 3088 mL intake of 2378 He is known with coronary artery disease COPD diabetes Objective - Vital Signs Vital signs: Vital Signs Temp 99.6 F 04/20/22 08:15 Pulse 92 04/20/22 09:00 Resp 28 H 04/20/22 09:00 BP 144/47 04/20/22 07:00 Pulse Ox 94 L 04/20/22 09:00 FiO2 40 04/20/22 08:18 Intake & Output 04/19/22 04/20/22 04/20/22 17:59 06:59 18:59 Intake Total 182.824 Output Total 280 Balance -97.176 Weight Intake: IV 137 0.9 60 0.9% @ KVO Calcium Gluconate 1 gm In 59 Amino Acid 4.25%-D10w+ Lytes*E* 1,000 ml @ 59 mls/hr IV .BY DURATION [facility] Rx#:[id number] Dextrose 5% in Water 1, 000 ml @ 75 mls/hr IV . [id number] [facility] with Sodium Bicarb (1 Meq/ml) 150 ml Rx#:[id number] Magnesium Sulfate-D5w Pmx 1 gm In Dextrose/Water 1 100ml.bag @ 100 mls/hr IVPB Q1H [facility] Rx#: [id number] Mvi, Adult No.4 with Vit K 10 ml Trace (Conc-1Ml/ Dose) 1 ml Calcium Gluconate 1 gm In Amino Acid 4.25%-D10w+Lytes*E* 1,000 ml @ 30 mls/hr IV . Q24H [facility] Rx#:[id number] Piperacillin-Tazobactam 3 .375 gm In Sodium Chloride 0.9% 100 ml @ 25 mls/hr IVPB Q8H [facility] Rx#: [id number] Potassium Chloride 20 meq In Water For Injection 1 100ml.bag @ 50 mls/hr IVPB Q2H [facility] Rx#: [id number] Pressure Bags 18 Intake, IV Titration 45.824 Amount Norepinephrine 8 mg In Sodium Chloride 0.9% 250 ml @ 0.03 MCG/KG/MIN 4. 766 mls/hr IV .Q24H [facility] Rx#:[id number] Vasopressin 20 unit In 45.824 Sodium Chloride 0.9% 50 ml @ 0.03 UNITS/MIN 4.59 mls/hr IV .Q11H7M [facility] Rx# :[id number] propofoL 1,000 mg In Empty Bag 1 bag @ 15 MCG/ KG/MIN 7.389 mls/hr IV . [id number] [facility] Rx#:[id number] Output: Urine 280 Stool Other: Voiding Method Indwelling Catheter ABP, PAP, CO, CI - Last Documented Arterial Blood Pressure 100/38 Currently on the ventilator 40% FiO2 obtunded Lungs are clear to auscultation Heart sounds unremarkable Abdomen is covered with a binder and according to the nursing staff there is a small area open wound at the bottom of a scar Extreme exam was mild edema and is significant scrotal edema Neurologically obtunded - Labs CBC & Chem 7: 04/20/22 06:00 04/20/22 06:00 Labs: Abnormal Lab Results - Last 24 Hours (Table) 04/19/22 04/19/22 04/19/22 Range/Units 11:07 18:06 19:59 RBC (4.30-5.90) m/uL Hgb (13.0-17.5) gm/dL Hct (39.0-53.0) % MCHC (31.0-37.0) g/dL RDW (11.5-15.5) % Lymphocytes # (1.0-4.8) k/uL ABG pH (7.35-7.45) ABG pO2 (83-108) mmHg ABG HCO3 (21-25) mmol/L ABG Total CO2 (19-24) mmol/L ABG O2 Saturation (94-97) % Sodium (137-145) mmol/L Potassium (3.5-5.1) mmol/L BUN (9-20) mg/dL Creatinine (0.66-1.25) mg/dL Glucose (74-99) mg/dL POC Glucose (mg/dL) 270 H 218 H 215 H (70-110) mg/dL Calcium (8.4-10.2) mg/dL Ionized Calcium Sridevi (4.5-5.3) mg/dL AST (17-59) U/L Total Protein (6.3-8.2) g/dL Albumin (3.5-5.0) g/dL 04/20/22 04/20/22 04/20/22 Range/Units 03:52 05:40 06:00 RBC (4.30-5.90) m/uL Hgb (13.0-17.5) gm/dL Hct (39.0-53.0) % MCHC (31.0-37.0) g/dL RDW (11.5-15.5) % Lymphocytes # (1.0-4.8) k/uL ABG pH 7.48 H (7.35-7.45) ABG pO2 79 L (83-108) mmHg ABG HCO3 29 H (21-25) mmol/L ABG Total CO2 30 H (19-24) mmol/L ABG O2 Saturation 97.2 H (94-97) % Sodium 135 L (137-145) mmol/L Potassium 2.9 L (3.5-5.1) mmol/L BUN 22 H (9-20) mg/dL Creatinine 1.36 H (0.66-1.25) mg/dL Glucose 202 H (74-99) mg/dL POC Glucose (mg/dL) 216 H (70-110) mg/dL Calcium 6.9 L (8.4-10.2) mg/dL Ionized Calcium Sridevi (4.5-5.3) mg/dL AST 13 L (17-59) U/L Total Protein 4.1 L (6.3-8.2) g/dL Albumin 2.0 L (3.5-5.0) g/dL 04/20/22 04/20/22 04/20/22 Range/Units 06:00 06:01 08:26 RBC 2.98 L (4.30-5.90) m/uL Hgb 7.5 L (13.0-17.5) gm/dL Hct 24.6 L (39.0-53.0) % MCHC 30.5 L (31.0-37.0) g/dL RDW 18.7 H (11.5-15.5) % Lymphocytes # 0.5 L (1.0-4.8) k/uL ABG pH (7.35-7.45) ABG pO2 (83-108) mmHg ABG HCO3 (21-25) mmol/L ABG Total CO2 (19-24) mmol/L ABG O2 Saturation (94-97) % Sodium (137-145) mmol/L Potassium (3.5-5.1) mmol/L BUN (9-20) mg/dL Creatinine (0.66-1.25) mg/dL Glucose (74-99) mg/dL POC Glucose (mg/dL) 221 H (70-110) mg/dL Calcium (8.4-10.2) mg/dL Ionized Calcium Sridevi 4.4 L (4.5-5.3) mg/dL AST (17-59) U/L Total Protein (6.3-8.2) g/dL Albumin (3.5-5.0) g/dL Microbiology - Last 24 Hours (Table) 04/17/22 19:00 Blood Culture - Preliminary Blood No Growth after 48 hours Assessment and Plan Plan: Impression 1. Acute kidney injury secondary to urinary retention and ATN. Creatinine peaked at 2.86 but improved to 1.36 this morning. Good urine output 2. Sigmoid mass and GI bleeding with severe anemia. Status post exploratory lap and colostomy 04/17/2022 3. Ventilator dependent respiratory failure on 40% change 4. On levo fed on and off 5. Status post coronary artery bypass graft remote 6. Mild hypokalemia secondary to diuresis 7. Metabolic acidosis resolved currently off bicarb drip. 8. Low-grade temperature source not clear 9. Chest x-ray shows pleural effusions Recommendation 1. Replace potassium will need approximately 120 mEq total via NGT. 2. Maintain Bo catheter for right now 4. Monitor labs
--- NOTE | 2022-04-20 09:30 | P.PN ---
Subjective Progress Note Date: 04/20/22 This is a 72-year-old male patient was brought into the intensive care unit after having his second surgery on 04/17/2022 which involved expiratory laparotomy, the patient had the surgery for an underlying anastomotic leak. The patient underwent a abdominal washout and takedown of anastomosis and colectomy and colostomy in the left upper quadrant. Estimated blood loss was around 25 mL. Postop, the patient was kept intubated on a mechanical ventilator. He was brought into the intensive care unit. He was quite hypotensive. His CVP was low on the eighth. He will received a total of saline boluses and following that he was started on pressors. Currently norepinephrine is running at 0.24 mcg/kg/m. The patient is intubated on a mechanical ventilator. Is currently on propofol at 45 mcg/kg/m and the patient is currently on assist control mode at a rate of 20, tidal volume of 450, FiO2 40% and a PEEP of 5. Note that overnight, the patient was found to be acidotic. He was given IV bicarb and following that he was started on a bicarbonate infusion which is still running at the rate of 150 mL an hour. Serum bicarb today is up to 20. Blood gas from today showed a pH of 7.38 with episodes of 34 and a pO2 of 120 and this was on FiO2 of 50%. WBC count is at 7.5 with a hemoglobin of 8.4 and a platelet count of 243. He did not fluid balance is positive for liters at least over the past 12 hours. The patient remains on IV Zosyn. He is adequately sedated. His colostomy site is light pink without evidence of any necrosis. The patient has no output in the colostomy bag. Surgical 1 site was inspected. The patient has retention sutures. There is leak of serosanguineous/bloody effusion from the one surface. The patient has a large midabdominal incision extending above and below the umbilicus all the way down to his pelvis. He does have scrotal edema. He does have +1 pitting edema. Orogastric tube is also in place. Ultrasound OG is only 200 over the past 8 hours. Note that this patient has history of coronary artery disease with previous bypass surgery and had a recent stent placement in February 2022. He came into the emergency department for shortness of breath. He was found to be intimate with a hemoglobin of 6.9. Given a unit of packed RBC. His fecal occult blood was positive. He underwent EGD and colonoscopy. EGD showed moderately sized hiatal hernia and colonoscopy showed a circumferential sigmoid mass 28 cm from the anal verge and 5 mm rectal polyp. Based on that, the patient was taken to the operating room on 04/13/2022 and the patient underwent a low anterior resection on 04/13/2022. His course was complicated by development of abdominal distention and worsening shortness of breath. This occurred on postoperative day #4. A CAT scan of the abdomen was done yesterday that showed evidence of a moderate to large amount of free intraperitoneal air consistent with anastomotic leak. There was also moderate bilateral pleural effusions. There was small amount of ascites around the liver. There was large hiatal hernia and by the edema. Chest x-ray from today is showing cardiomegaly, bilateral pleural effusion, is about the pulmonary infiltrates, thoracotomy wires, triple-lumen catheter in his left IJ and adequate positioning of the orogastric tube. There is evidence also of bilateral pleural effusions. On 04/19/2022, the patient remains intubated on a mechanical ventilator. The patient is postop day #2. THE patient had an anastomotic leak following bowel surgery in a patient presented to the intensive care following his surgery intubated on a mechanical ventilator. This morning, the patient is on propofol running at 45 mcg/kg/m. His calm and comfortable and symptoms mechanical ventilator. At the same time, is on assist control mode at a rate of 20, tidal volume of 450, FiO2 of 40% with a PEEP of 5. The blood gas from this morning shows a pH of 7.42 pCO2 of 42 and pO2 of 92. The chest x-ray from today is mychal wing bilateral pleural effusion/consolidation is worse on the right. 82 is around 1.5 cm away from judah. Triple-lumen catheter was also placed in his left IJ. Hemodynamically, the patient is on IV fluids and currently is on bicarb infusion running at the rate of 75 mL an hour. His bicarb can be discontinued as the patient's serum bicarb is up to 25. Sodium is at 137 with a potassium level of 3.[address] Urine output is in order of 150 mL an hour. His overall fluid balance over the past 24 hours has been +3.5 L. In terms of hemodynamic support, the patient is on norepinephrine running at 0.1 mcg/kg/m. He also has vasopressin at physiologic dose at 0.03 units an hour. Cardiac rhythm is sinus. The patient was started on TPN for nutritional support which is running at the rate of 30 mL an hour. He is showing some signs of fluid overload with increase in scrotal edema. The colostomy stoma is viable. The tissue looks healthy. There is some liquidy material collecting in the bag. The abdomen is distended. Surgical wound is open and there is some limited serosanguineous material from the surgical one-sided. Orogastric tube in place. Output from the OG has been in the order of 10-20 mL over the past 24 hours. Patient is calm and comfortable. He is running episodes of fever. His T-max was 102. Blood culture is negative. Intra-abdominal cultures are still pending for now. The 2022, the patient's postop day #3 following his surgery for anastomotic leak, colectomy and diverticular colostomy. On today's evaluation, the patient remains on a mechanical ventilator. He is currently on propofol which is running at 45 mcg/kg/m and his well rested. He remains on a mechanical ventilator. He is on assist control mode at the rate of 20, tidal volume of 450, FiO2 of 40% and PEEP of 5. The chest x-ray from today shows cardiomegaly, ET tube is in a good location, the patient has a triple-lumen cath in the right IJ. There is also evidence of bilateral pleural effusion which is essentially unchanged compared to yesterday and the findings of essentially stable for now. The blood gas shows a pH of 7.48 with a pCO2 of 39 and pO2 of 79. The patient is quite segments on mechanical ventilator. Hemodynamically, the patient is on KVO IV fluids. He did have significant fluid resuscitation. And IV fluids were cut down yesterday. He remains on pressors and norepinephrine is running at the rate of 0.03 mcg/kg/m. As such, his blood pressure has stabilized and he was also taken off the vasopressin. Cardiac rhythm is still sinus. Urine output is adequate for now. The patient was also started on TPN for nutritional support. On today's evaluation, the surgical wound is draining purulent foul-smelling material. The colostomy is viable and there is stool output in the colostomy bag. In terms of cultures, the wound needs to be cultured. The blood culture is negative. The abdominal wound cultures collected intraoperatively are still pending for now. The patient remains on IV Zosyn for now. Blood work shows a dull retrosternal 9 with a hemoglobin of 7.5 and a platelet count of 204. The sodium is at 135, potassium is to be replaced at 2.9 and the patient has a BUN of 22 with a creatinine of 1.36 and his acute kidney injury is also improving. Blood sugars at 202. Patient is on Levemir insulin 25 units twice a day and is also on sliding scale insulin coverage. Blood sugars under adequate control for now. Objective - Vital Signs Vital signs: Vital Signs Temp 99.6 F 04/20/22 08:15 Pulse 92 04/20/22 09:00 Resp 28 H 04/20/22 09:00 BP 144/47 04/20/22 07:00 Pulse Ox 94 L 04/20/22 09:00 FiO2 40 04/20/22 08:18 Intake & Output 04/19/22 04/20/22 04/20/22 17:59 06:59 18:59 Intake Total 182.824 Output Total 280 Balance -97.176 Weight Intake: IV 137 0.9 60 0.9% @ KVO Calcium Gluconate 1 gm In 59 Amino Acid 4.25%-D10w+ Lytes*E* 1,000 ml @ 59 mls/hr IV .BY DURATION [facility] Rx#:[id number] Dextrose 5% in Water 1, 000 ml @ 75 mls/hr IV . [id number] [facility] with Sodium Bicarb (1 Meq/ml) 150 ml Rx#:[id number] Magnesium Sulfate-D5w Pmx 1 gm In Dextrose/Water 1 100ml.bag @ 100 mls/hr IVPB Q1H [facility] Rx#: [id number] Mvi, Adult No.4 with Vit K 10 ml Trace (Conc-1Ml/ Dose) 1 ml Calcium Gluconate 1 gm In Amino Acid 4.25%-D10w+Lytes*E* 1,000 ml @ 30 mls/hr IV . Q24H ONE Rx#:[id number] Piperacillin-Tazobactam 3 .375 gm In Sodium Chloride 0.9% 100 ml @ 25 mls/hr IVPB Q8H [facility] Rx#: [id number] Potassium Chloride 20 meq In Water For Injection 1 100ml.bag @ 50 mls/hr IVPB Q2H [facility] Rx#: [id number] Pressure Bags 18 Intake, IV Titration 45.824 Amount Norepinephrine 8 mg In 0 Sodium Chloride 0.9% 250 ml @ 0.03 MCG/KG/MIN 4. 766 mls/hr IV .Q24H [facility] Rx#:[id number] Vasopressin 20 unit In 45.824 Sodium Chloride 0.9% 50 ml @ 0.03 UNITS/MIN 4.59 mls/hr IV .[id number] [facility] Rx# :[id number] propofoL 1,000 mg In Empty Bag 1 bag @ 15 MCG/ KG/MIN 7.389 mls/hr IV . [id number] [facility] Rx#:[id number] Output: Urine 280 Stool Other: Voiding Method Indwelling Catheter ABP, PAP, CO, CI - Last Documented Arterial Blood Pressure 100/38 - Exam Gen. appearance the patient is calm comfortable, sedated on propofol cigarettes a mechanical ventilator. The patient has an orogastric and orotracheal tube are both of them are in place. Head exam was generally normal. There was no scleral icterus or corneal arcus. Mucous membranes were moist. Neck was supple and without jugular venous distension, thyromegaly, or carotid bruits. Carotids were easily palpable bilaterally. There was no adenopathy. The patient has a left IJ triple-lumen catheter in place. Lungs sounds are diminished bilaterally otherwise the breath sounds are equal and symmetrical and the patient is a thoracotomy scar over the anterior chest Cardiac exam revealed the PMI to be normally situated and sized. The rhythm was regular and no extrasystoles were noted during several minutes of auscultation. The first and second heart sounds were normal and physiologic splitting of the second heart sound was noted. There were no murmurs, rubs, clicks, or gallops. Abdomen shows a colostomy in the left upper quadrant. The colon tissue is pink and viable. His stool output in the colostomy bag. The patient has a open midabdominal incision with serosanguineous/bloody fluid seeping from the wound surface. The base of the wound is showing purulent material especially at the edges and it's covered with some purulent drainage is also foul-smelling. No direct tenderness. No rebound tenderness. Absent bowel sounds. Patient has scrotal edema. Extremities revealed +1 pitting edema, no cyanosis or clubbing, significant scrotal edema. Neurological sedated - Labs CBC & Chem 7: 04/20/22 06:00 04/20/22 06:00 Labs: Abnormal Lab Results - Last 24 Hours (Table) 04/19/22 04/19/22 04/19/22 Range/Units 11:07 18:06 19:59 RBC (4.30-5.90) m/uL Hgb (13.0-17.5) gm/dL Hct (39.0-53.0) % MCHC (31.0-37.0) g/dL RDW (11.5-15.5) % Lymphocytes # (1.0-4.8) k/uL ABG pH (7.35-7.45) ABG pO2 (83-108) mmHg ABG HCO3 (21-25) mmol/L ABG Total CO2 (19-24) mmol/L ABG O2 Saturation (94-97) % Sodium (137-145) mmol/L Potassium (3.5-5.1) mmol/L BUN (9-20) mg/dL Creatinine (0.66-1.25) mg/dL Glucose (74-99) mg/dL POC Glucose (mg/dL) 270 H 218 H 215 H (70-110) mg/dL Calcium (8.4-10.2) mg/dL Ionized Calcium Sridevi (4.5-5.3) mg/dL AST (17-59) U/L Total Protein (6.3-8.2) g/dL Albumin (3.5-5.0) g/dL 04/20/22 04/20/22 04/20/22 Range/Units 03:52 05:40 06:00 RBC (4.30-5.90) m/uL Hgb (13.0-17.5) gm/dL Hct (39.0-53.0) % MCHC (31.0-37.0) g/dL RDW (11.5-15.5) % Lymphocytes # (1.0-4.8) k/uL ABG pH 7.48 H (7.35-7.45) ABG pO2 79 L (83-108) mmHg ABG HCO3 29 H (21-25) mmol/L ABG Total CO2 30 H (19-24) mmol/L ABG O2 Saturation 97.2 H (94-97) % Sodium 135 L (137-145) mmol/L Potassium 2.9 L (3.5-5.1) mmol/L BUN 22 H (9-20) mg/dL Creatinine 1.36 H (0.66-1.25) mg/dL Glucose 202 H (74-99) mg/dL POC Glucose (mg/dL) 216 H (70-110) mg/dL Calcium 6.9 L (8.4-10.2) mg/dL Ionized Calcium Sridevi (4.5-5.3) mg/dL AST 13 L (17-59) U/L Total Protein 4.1 L (6.3-8.2) g/dL Albumin 2.0 L (3.5-5.0) g/dL 04/20/22 04/20/22 04/20/22 Range/Units 06:00 06:01 08:26 RBC 2.98 L (4.30-5.90) m/uL Hgb 7.5 L (13.0-17.5) gm/dL Hct 24.6 L (39.0-53.0) % MCHC 30.5 L (31.0-37.0) g/dL RDW 18.7 H (11.5-15.5) % Lymphocytes # 0.5 L (1.0-4.8) k/uL ABG pH (7.35-7.45) ABG pO2 (83-108) mmHg ABG HCO3 (21-25) mmol/L ABG Total CO2 (19-24) mmol/L ABG O2 Saturation (94-97) % Sodium (137-145) mmol/L Potassium (3.5-5.1) mmol/L BUN (9-20) mg/dL Creatinine (0.66-1.25) mg/dL Glucose (74-99) mg/dL POC Glucose (mg/dL) 221 H (70-110) mg/dL Calcium (8.4-10.2) mg/dL Ionized Calcium Sridevi 4.4 L (4.5-5.3) mg/dL AST (17-59) U/L Total Protein (6.3-8.2) g/dL Albumin (3.5-5.0) g/dL Microbiology - Last 24 Hours (Table) 04/17/22 19:00 Blood Culture - Preliminary Blood No Growth after 48 hours Assessment and Plan Plan: Acute abdomen secondary to anastomotic leak following a sigmoid resection and low AP resection that was performed on 04/13/2022. The patient was taken to the operating room for expiratory laparotomy on 04/17/2022 and the patient had left colectomy and diverting colostomy. Patient is postop day #3 following his se cond surgery which involved extensive laparotomy, and colostomy. Shock, likely septic in nature secondary to intra-abdominal sepsis, currently on fluids and pressors and the patient is on norepinephrine running at 0.06 mcg/kg/m of norepinephrine the patient is off vasopressin. Patient is covered with antibiotics and the patient is currently on IV Zosyn. Cultures are still pending for now. Abnormal wound infection. The patient has an open abdominal wound with purulent material is foul-smelling covering the wound surface. Suspect abdominal wound infection Acute hypoxic respiratory failure, currently intubated on a mechanical ventilator, chest x-ray showing breath and pleural effusions worse on the right, unchanged on today's chest x-ray Sigmoid colon mass, obstructive, post low AP resection performed on 04/13/2022 Anastomotic leak with necrosis of the level of the anastomosis, post colectomy and diverting colostomy on 04/17/2022 Coronary artery disease with previous coronary artery bypass surgery and previous coronary stenting Chronic kidney disease, stage III with a component of an acute kidney injury on top of his chronic kidney disease. Patient's creatinine is stable at 1.3. 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 The patient was having GI bleed secondary to colon cancer and subsequently he may have had some intraoperative loss of blood and there may be some dilutional anemia secondary to aggressive fluid resuscitation Diabetes mellitus Hyperlipidemia Hypoproteinemia secondary to above and the patient has third spacing, anasarca and scrotal edema Valvular heart disease with normal biventricular function. The patient has moderate degree of mitral regurgitation severe pulmonary hypertension and severe tricuspid regurgitation COPD maintain on Advair on outpatient basis BPH Plan Keep the patient on mechanical ventilator Stop sedation and assess mental status, and assess his candidacy to wean, assess his weaning parameters and decide accordingly if further weaning is possible TPN b for nutritional support IV fluids are KVO Chest x-ray and blood gases were noted Abdominal wound has been noted and will continue our dressing change Obtain abdominal wound cultures Start the patient on Diflucan 200 mg every 24 hours and vancomycin suspecting abdominal wound infection Continue IV Zosyn Monitor output from the colostomy, there is positive stool output Titrate norepinephrine doses and patient is currently off vasopressin Continue IV Pepcid Change Levemir insulin to 25 units twice a day and use sliding scale insulin coverage Monitor CVP We'll continue to follow Condition remains critical The critical care evaluation was done in more than 30 minutes Time with Patient: Greater than 30
[2022-04-20] MEDS ORDERED: VANCOMYCIN IV PER PHARMACY 1 EACH MISC MISCELLANE PRN (09:42)
[2022-04-20] MEDS ORDERED: POTASSIUM BICARBONATE/CIT AC 20 MEQ TABLET.EFF NG-TUBE SCH ×2 (10:00→16:00)
[2022-04-20] MEDS: FLUCONAZOLE IN NACL,ISO-OSM 200 MG in SALINE 1 100ML.BAG IVPB SCH (10:11)
[2022-04-20] MEDS: 1: MVI, ADULT NO.4 WITH VIT K 10 ML, TRACE (CONC-1ML/DOSE) 1 ML, CALCIUM GLUCONATE 1 GM, IV SCH ×5 (10:32)
[2022-04-20] MEDS: HYDROmorphone 1 MG/ML 1 ML SYRINGE IVP PRN ×2 (11:36→22:07)
[2022-04-20] MEDS: DAPTOmycin 500 MG in SODIUM CHLORIDE 0.9% 50 ML IVPB SCH (11:40)
[2022-04-20] MEDS ORDERED: VANCOMYCIN 1,750 MG in SODIUM CHLORIDE 0.9% 500 ML 500 ML IVPB SCH (12:00)
[2022-04-20 12:18] LABS: Glucose,Whole Blood 230 mg/dL (70-110)
--- NOTE | 2022-04-20 13:10 | P.PN ---
Subjective Progress Note Date: 04/20/22 Patient is a 72-year-old male with a known history of coronary artery disease status post CABG and recent stent placement in February 2022 initially presented to ER with complaints of shortness of breath and exertional dyspnea. Patient initially thought it was due to his heart condition and went to ER. Patient was found to have a hemoglobin of 6.9 and received 1 unit of PRBC. Patient was tested positive for FOBT. Patient is also taking aspirin and Plavix from recent stent placement. Patient also states that he has been taking Motrin for the last couple of weeks for his neuropathy pain in his feet. Denies any complaints of hematemesis dark-colored stools. Patient was transferred to [facility] for GI evaluation. On admission WBC 4.4 hemoglobin 7.5 MCV 79.7 and platelets 243 Sodium 143 potassium 4.2 chloride 101 bicarb is 19 BUN 25 and creatinine 1.72 Calcium 7.4 04/11/2022 Patient is currently resting in bed. Awake alert and oriented x3. No complaints of chest pain or shortness of breath. Otherwise underwent EGD and colonoscopy today. EGD showed moderate size hiatal hernia but no evidence of esophagitis or peptic ulcer disease. No evidence of GI bleed. Colonoscopy showed a) Near circumferential sigmoid colon mass at 28 cm from the anal verge status post multiple biopsies followed by tattooing with Aiyana ink b) 5 mm rectal polyp status post polypectomy General surgery was consulted and follow-up biopsy report.. Hemoglobin is stable at 8.6 otherwise. Denies any complaints of nausea or vomiting. Patient was started on clear liquid diet and follow H&H. 04/12/2022 Patient is currently resting in the bed. Awake alert and oriented x3. No complaints of chest pain or shortness of breath. No nausea vomiting abdominal pain or diarrhea. No cough or sputum production. Patient was seen by general surgery and is planning for or tomorrow. Antiplatelets on hold. Laboratory data reviewed. Patient is being current on iron supplementation Protonix IV push daily. 04/13/2022 Patient is currently lying in bed. Awake alert and oriented. Pain is fairly controlled. Status post low anterior resection of the sigmoid colon. Postoperative day 0 No fever no chills. Currently on room air. No nausea vomiting or diarrhea. Laboratory data showed WBC 5.3 hemoglobin 7.7 platelets 216 sodium 140 potassium 3.8 chloride 106 bicarb is 22 BUN 16 and creatinine 1.69. Calcium 7.5. General surgery and cardiology is on board. 04/14/2022 Patient is evaluated today sitting up in chair currently postoperative day #1 low anterior resection for sigmoid colon mass with pathology currently pending at this time. Patient is currently on clear liquid diet. Not passing gas yet and no BM. Reports controlled incisional abdominal pain. Wound vac is in place and intact. Patient is currently on D5 0.45 normal saline with potassium. Creatinine is up to 2.0 today. 04/15/2022 Patient is evaluated today on stepdown unit currently postoperative day #2 sigmoid colon resection. Aspirin and plavix remain on hold. Cardiology following closely. Blood pressure has improved to 139/71 today. Indwelling catheter removed yesterday afternoon, patient has issues with urinary retention overnight and for this reason normal saline was placed on hold. Patient has been unable to void and urinary strait cath was unable to produce urine. Bladder scan today showing 70 mls in urinary bladder. Creatinine is up to 2.86 today. Urology has been consulted for placement of urinary catheter and IV fluids have been resumed at an increased rate. Continues on clear liquid diet. Reports abdominal pain is controlled today. Blood glucose has been increased and insulin has been added. Remains afebrile, heart rate 72, blood pressure 120/68, 92% room air. 04/16/2022 Patient is evaluated on medical floor. he is postoperative day #3 sigmoid colon resection. Patient had urinary catheter placed by urology for urinary retention. Overnight has had 225 mLs of urine output, he is continued on normal saline at 125 mls/hr. Creatinine today has improved 2.29. Sodium up to 134. Renal ultrasound has been ordered and will repeat labs in AM. Patient had a bowel movement today he reports. He has some abdominal distention, states he is not passing much gas and feels bloated. Hemodynamically stable. 04/17/2022 Patient is evaluated on medical floor. Patients abdomen appears more distended with increased shortness of breath. He is postoperative day #4 low anterior resection of sigmoid colon secondary to mass. 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 He had chest xray completed with report called by radiology with large amount of free intraperitoneal air and bilateral infiltrate and small effusion. Correlate for mild venous congestion. Abdominal pelvis CT was ordered and results showing moderate to large amount of free intraperitoneal air may be related to patients interval surgery and colonic resection. Moderate bilateral pleural effusions, small amount of ascites around the liver, body wall edema, large hiatal hernia. Patient will undergo exploratory laporatomy today. Patient was noted to have purulent drainage from wound vac and also from midline incision which was cultured and patient was started on antibiotics. Blood cultures will be taken as well. Patient has been hydrated overnight with normal saline and creatinine has improved to 2.0, however his urine output remains marginal with 600 mls in the last 24 hours from indwelling urinary catheter. Renal ultrasound showing possible mild thinning of left renal cortex correlate for chronic medical renal disease with no hydronephrosis or nephrolisthiasis. Labs today showing white count 7.98, hgb 7.1, platelets 97, sodium 138, potassium 4.7, BUN 36.3, creatinine 2.0. Urinalysis negative. Patient is afebrile, heart rate 78, blood pressure 142/63, 100% on 3L nasal cannula. 04/18/2022 Patient is evaluated in the intensive care unit currently intubated on mechanical ventilator and sedated. Patient was found to have free air in the abdomen and was taken for exploratory laporatomy yesterday and was found to have ischemic bowel. Patient had take down of the anastamosis and colectomy, washout of abdomen and colostomy left upper quadrant. Patient was taken from the OR and admitted to the intensive care unit. Patient is evaluated today postoperative day #1, and also postoperative day #5 low anterior resection. Patient has OG tube in place with 200 mls of gastric output total which brown in color with black noted in the collection cannister. He did receive 2 units of PRBCs and hemoglobin is stable today at 8.4. He received 1 unit of PRBC on admission as well. He continues on aspirin 81 mg daily and plavix remains on hold. Cardiology following. Patient had ABGs done today showing pH of 7.38, pCO2 of 34, pO2 of 120 HCO3 of 20. He will continue to remain on mechanical ventilator overnight. Blood pressure remains on the lower side and patient is currently on lovephed running at 0.28 mcg/kg/min. Nephrology is following and patient continues on bicarbonate gtt running at 75 mls/hr. Chest xray today reports persistent areas of consolidation pleural effusion correlate for CHF, superimposed pneumonia not excluded. Blood culture and wound cultures are pending and patient has been started on IV zosyn. Patient will be started on TPN today. He is sedated with propofol. Surgical site is examined with retention sutures in place covered with ABD dressing. Additionally patient has LUQ colostomy in place with stoma showing no signs of necrosis and there is small amt of brown liquid stool in ostomy. Labs today showing white count of 7.5, hgb 8.4, sodium 134, potassium 3.7, BUN 32, creatinine 1.66, blood glucose 242, calcium 6.4, phosphorous 3.3, magnesium 1.8, albumin 2.2. Patient has temp of 100.7 today, heart rate 82, blood pressure 99/43, and oxygen saturation of 98% on mechanical ventilator with 40% FiO2. 04/19/2022 Patient is evaluated in the intensive care unit. He is currently intubated on mechanical ventilator with FiO2 of 40% He is receiving TPN. He is sedated with propofol. He is requiring levophed and vasopressin has been added. Blood pressures are improved into the 120s systolic. Creatinine has also improved to 1.56. Blood culture and wound culture are pending and IV zosyn is continued. Chest xray today showing cardiomegaly with pulmonary vascular congestion and bilateral pleural effusions. IV bicarb has been discontinued. Scrotal edema is increased and patient has generalized peripheral edema as well. There is NG tube in place with minimal output and continues to be black/dark brown in color. Patient has watery output from ostomy. Retention sutures are removed and abdomen is open and has some sanguineous drainage. He appears comfortable. Urine output has increased. IV tylenol in place for fever. 04/20/2022 Patient continues to be monitored closely in intensive care unit. He is currently intubated and sedated on the mechanical ventilator with FiO2 of 40%. Blood gases are done today with pH of 7.48, pO2 79. Patient is currently running temp intermittently. He continues on levophed and vasopressin is on hold. Patient is currently sedated with propofol. Abdomen culture from 04/17 showing multiple gram negative bacilli colonies and also group D enterococcus. Patient remains on IV zosyn and has also been started on IV diflucan and also IV vancomycin. Chest xray today showing stable support tubes, similiar cardiomegaly, suspected similar pleural effusions. Labs today showing white count of 9.0, hgb of 7.5. Creatinine continues to improve currently 1.36, potassium 2.9. Blood glucose up in the 200s and insulin continues to be increased. Patient continues on TPN. Abdominal wound is open and packed with gauze with foul odor noted. Bowel sounds are increased and patient is making stool from ostomy today light brown and has some formed stool. Unable to complete review of systems patient is intubated and sedated. PHYSICAL EXAMINATION: Patient is evaluated in ICU intubated and sedated. HEENT: Normocephalic. Neck is supple. Pupils reactive. Nostrils clear. Oral cavity is moist. Neck reveals no JVD, carotid bruits, or thyromegaly. CHEST EXAMINATION: Trachea is central. Symmetrical expansion. Lung escalante clear to auscultation and percussion. CARDIAC: Normal S1, S2 with no gallops. No murmurs ABDOMEN: Bowel sounds are increased today, LUQ ostomy in place with stool output. Gauze packing to open abdominal wound. . Extremities: reveal no edema. No clubbing or cyanosis Neurologically awake, alert, oriented x3 with well-coordinated movements. No focal deficits noted Skin: No rash or skin lesions. Lower extremity edema and significant scrotal edema. Psychiatric: unable to assess at this time Musculoskeletal: No joint swelling or deformity. Assessment and Plan Assessment Sigmoid colon mass status post low anterior resection postoperative day #7 with 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 Anastomotic leak and ischemic bowel following low anterior resection patient is currently postoperative day #3 abdominal washout, takedown of anastamosis with left colectomy and colostomy formation LUQ. Shock likely septic shock secondary to above and requiring vasopressor support and ICU care Acute hypoxic respiratory failure currently intubated on mechanical ventilator Acute blood loss anemia from GI bleed secondary to sigmoid colon mass. Patient received 1 unit PRBC on admission. Acute kidney injury prerenal with acute tubular necrosis, improving Postoperative urinary retention with indwelling catheter placed Microcytic anemia with iron deficiency. Hyperglycemia Coronary artery disease with history of stent placement in February 2022 Coronary artery disease history of CABG GI and DVT prophylaxis with SCDs Full Code Plan: Continue mechanical ventilator per transfer knitter Patient continues on vasopressor support and sedation, patient continues on levophed, vasopressin is off currently Final culture from 04/17 showing multiple colonies and IV daptomycin has been started Abdominal wound will be recultured and infectious disease has been consulted IV bicarbonate has been discontinued. Monitor H&H closely. Transfusion of hemoglobin less than 7. Plavix remains on hold Continue on TPN currently running at 30ml/hr and insulin dosing has been increased and continue to monitor blood glucose Q6h. Multiple consultations following including nephrology, urology, cardiology, general surgery, pulmonary transfer knitter Repeat labs in AM Condition remains guarded. The impression and plan of care has been dictated by Carmita Johnson, Nurse Practitioner as directed. Dr. Akbar MD I have performed a history and physical examination and medical decision making of this patient, discussed the same with the dictator, and agree with the dictators assessment and plan as written, documented as a scribe. Based on total visit time, I have performed more than 50% of this visit. Objective - Vital Signs Vital signs: Vital Signs Temp 99.6 F 04/20/22 08:15 Pulse 88 04/20/22 08:36 Resp 26 H 04/20/22 08:15 BP 144/47 04/20/22 07:00 Pulse Ox 96 04/20/22 08:15 FiO2 40 04/20/22 08:18 Intake & Output 04/19/22 04/20/22 04/20/22 17:59 06:59 18:59 Intake Total 156.645 Output Total 205 Balance -48.355 Weight Intake: IV 111 0.9 40 0.9% @ KVO Calcium Gluconate 1 gm In 59 Amino Acid 4.25%-D10w+ Lytes*E* 1,000 ml @ 59 mls/hr IV .BY DURATION [facility] Rx#:[id number] Dextrose 5% in Water 1, 000 ml @ 75 mls/hr IV . [id number] [facility] with Sodium Bicarb (1 Meq/ml) 150 ml Rx#:[id number] Magnesium Sulfate-D5w Pmx 1 gm In Dextrose/Water 1 100ml.bag @ 100 mls/hr IVPB Q1H [facility] Rx#: [id number] Mvi, Adult No.4 with Vit K 10 ml Trace (Conc-1Ml/ Dose) 1 ml Calcium Gluconate 1 gm In Amino Acid 4.25%-D10w+Lytes*E* 1,000 ml @ 30 mls/hr IV . Q24H [facility] Rx#:[id number] Piperacillin-Tazobactam 3 .375 gm In Sodium Chloride 0.9% 100 ml @ 25 mls/hr IVPB Q8H [facility] Rx#: [id number] Potassium Chloride 20 meq In Water For Injection 1 100ml.bag @ 50 mls/hr IVPB Q2H [facility] Rx#: [id number] Pressure Bags 12 Intake, IV Titration 45.645 Amount Norepinephrine 8 mg In Sodium Chloride 0.9% 250 ml @ 0.03 MCG/KG/MIN 4. 766 mls/hr IV .Q24H [facility] Rx#:[id number] Vasopressin 20 unit In 45.645 Sodium Chloride 0.9% 50 ml @ 0.03 UNITS/MIN 4.59 mls/hr IV .[id number] [facility] Rx# :[id number] propofoL 1,000 mg In Empty Bag 1 bag @ 15 MCG/ KG/MIN 7.389 mls/hr IV . [id number] [facility] Rx#:[id number] Output: Urine 205 Stool Other: Voiding Method Indwelling Catheter ABP, PAP, CO, CI - Last Documented Arterial Blood Pressure 133/48 - Labs CBC & Chem 7: 04/20/22 06:00 04/20/22 06:00 Labs: Abnormal Lab Results - Last 24 Hours (Table) 04/19/22 04/19/22 04/19/22 Range/Units 11:07 18:06 19:59 RBC (4.30-5.90) m/uL Hgb (13.0-17.5) gm/dL Hct (39.0-53.0) % MCHC (31.0-37.0) g/dL RDW (11.5-15.5) % Lymphocytes # (1.0-4.8) k/uL ABG pH (7.35-7.45) ABG pO2 (83-108) mmHg ABG HCO3 (21-25) mmol/L ABG Total CO2 (19-24) mmol/L ABG O2 Saturation (94-97) % Sodium (137-145) mmol/L Potassium (3.5-5.1) mmol/L BUN (9-20) mg/dL Creatinine (0.66-1.25) mg/dL Glucose (74-99) mg/dL POC Glucose (mg/dL) 270 H 218 H 215 H (70-110) mg/dL Calcium (8.4-10.2) mg/dL AST (17-59) U/L Total Protein (6.3-8.2) g/dL Albumin (3.5-5.0) g/dL 04/20/22 04/20/22 04/20/22 Range/Units 03:52 05:40 06:00 RBC (4.30-5.90) m/uL Hgb (13.0-17.5) gm/dL Hct (39.0-53.0) % MCHC (31.0-37.0) g/dL RDW (11.5-15.5) % Lymphocytes # (1.0-4.8) k/uL ABG pH 7.48 H (7.35-7.45) ABG pO2 79 L (83-108) mmHg ABG HCO3 29 H (21-25) mmol/L ABG Total CO2 30 H (19-24) mmol/L ABG O2 Saturation 97.2 H (94-97) % Sodium 135 L (137-145) mmol/L Potassium 2.9 L (3.5-5.1) mmol/L BUN 22 H (9-20) mg/dL Creatinine 1.36 H (0.66-1.25) mg/dL Glucose 202 H (74-99) mg/dL POC Glucose (mg/dL) 216 H (70-110) mg/dL Calcium 6.9 L (8.4-10.2) mg/dL AST 13 L (17-59) U/L Total Protein 4.1 L (6.3-8.2) g/dL Albumin 2.0 L (3.5-5.0) g/dL 04/20/22 04/20/22 Range/Units 06:00 06:01 RBC 2.98 L (4.30-5.90) m/uL Hgb 7.5 L (13.0-17.5) gm/dL Hct 24.6 L (39.0-53.0) % MCHC 30.5 L (31.0-37.0) g/dL RDW 18.7 H (11.5-15.5) % Lymphocytes # 0.5 L (1.0-4.8) k/uL ABG pH (7.35-7.45) ABG pO2 (83-108) mmHg ABG HCO3 (21-25) mmol/L ABG Total CO2 (19-24) mmol/L ABG O2 Saturation (94-97) % Sodium (137-145) mmol/L Potassium (3.5-5.1) mmol/L BUN (9-20) mg/dL Creatinine (0.66-1.25) mg/dL Glucose (74-99) mg/dL POC Glucose (mg/dL) 221 H (70-110) mg/dL Calcium (8.4-10.2) mg/dL AST (17-59) U/L Total Protein (6.3-8.2) g/dL Albumin (3.5-5.0) g/dL Microbiology - Last 24 Hours (Table) 04/17/22 19:00 Blood Culture - Preliminary Blood No Growth after 48 hours Assessment and Plan Time with Patient: Less than 30
[2022-04-20] MEDS ORDERED: ACETAMINOPHEN IV (For NPO) 1,000 MG in EMPTY BAG 1 BAG IVPB PRN (15:14)
[2022-04-20 17:53] LABS: Glucose,Whole Blood 207 mg/dL (70-110)
--- NOTE | 2022-04-20 18:17 | P.PN ---
Subjective Progress Note Date: 04/20/22 CHIEF COMPLAINT: Sigmoid colon mass, anastomotic necrosis HISTORY OF PRESENT ILLNESS: The patient is a 72-year-old male initially presented to the emergency room with sigmoid colon status post low anterior resection 04/13/2022. He was taken back to operating room 04/17/2022 due to anastomotic necrosis now with colostomy. He is on full ventilatory support. Per discussion with nurse, patient having purulent drainage long midline incision. He continues to have fevers. Antibiotics were adjusted. Additionally, patient seen by infectious disease with request for more imaging. ROS: No reports of nausea and vomiting. Temperature 100.4 and 24 hours, fever. Pre-existing history of CABG, coronary artery disease. PHYSICAL EXAM: VITAL SIGNS: Reviewed CONSTITUTIONAL: Well developed and in no acute distress. EYES: Conjuctivae without sclera icterus. Extraocular movements grossly intact. HEAD, EARS, NOSE, THROAT: Moist buccal mucosa. Head is atraumatic, normocephalic. No nasal drainage. RESPIRATORY: Non-labored respirations and equal bilateral excursions. Full mechanical ventilatory support. CARDIOVASCULAR: Palpable 2+ radial pulses. ABDOMEN: Midline dressing removed with early fat necrosis of midline incision. Ostomy with liquid brown stools. No drainage of liquid brown stools along the midline incision. MUSCULOSKELETAL: No gross deformity of the lower extremities noted. SKIN: Good skin turgor. Well perfused. NEUROLOGIC: Cranial nerves II through XII grossly intact. No focal or lateralizing signs. PSYCH: Sedated. CLINICAL LABS: Reviewed. WBC normal 9.5, down to 9.0. Hemoglobin 8.5, anemia, down to 7.5. Potassium low at 2.9, hypokalemia ASSESSMENT: 1. Sigmoid colon mass 2. Coronary artery disease status post CABG 3. Respiratory failure 4. Morbid obesity due to excess calories, BMI 39.2 5. Anemia 6. Hypokalemia 7. Sepsis due to intra-abdominal process PLAN: 1. Agree with CT of the abdomen and pelvis. He is high risk for intra- abdominal abscess due to course of anastomotic leak. No JESSA drain present on exam. 2. Continue antibiotic management. 3. Continue wet-to-dry dressing along midline incision Objective - Vital Signs Vital signs: Vital Signs Temp 100.4 F H 04/20/22 11:45 Pulse 94 04/20/22 17:30 Resp 26 H 04/20/22 17:30 BP 144/47 04/20/22 10:45 Pulse Ox 94 L 04/20/22 17:30 FiO2 40 04/20/22 16:04 Intake & Output 04/19/22 04/20/22 04/20/22 17:59 06:59 18:59 Intake Total 1250.449 Output Total 2405 Balance -1154.551 Weight Intake: IV 996 0.9 220 0.9% @ KVO Calcium Gluconate 1 gm In 354 Amino Acid 4.25%-D10w+ Lytes*E* 1,000 ml @ 59 mls/hr IV .BY DURATION [facility] Rx#:[id number] DAPTOmycin 500 mg In 50 Sodium Chloride 0.9% 50 ml @ 100 mls/hr IVPB Q24H [facility] Rx#:[id number] Dextrose 5% in Water 1, 000 ml @ 75 mls/hr IV . [id number] [facility] with Sodium Bicarb (1 Meq/ml) 150 ml Rx#:[id number] Fluconazole in NaCl,Iso- 100 Osm 200 mg In Saline 1 100ml.bag @ 100 mls/hr IVPB DAILY [facility] Rx#: [id number] Magnesium Sulfate-D5w Pmx 1 gm In Dextrose/Water 1 100ml.bag @ 100 mls/hr IVPB Q1H [facility] Rx#: [id number] Mvi, Adult No.4 with Vit K 10 ml Trace (Conc-1Ml/ Dose) 1 ml Calcium Gluconate 1 gm In Amino Acid 4.25%-D10w+Lytes*E* 1,000 ml @ 30 mls/hr IV . Q24H [facility] Rx#:[id number] Piperacillin-Tazobactam 3 200 .375 gm In Sodium Chloride 0.9% 100 ml @ 25 mls/hr IVPB Q8H [facility] Rx#: [id number] Potassium Chloride 20 meq In Water For Injection 1 100ml.bag @ 50 mls/hr IVPB Q2H [facility] Rx#: [id number] Pressure Bags 72 Intake, IV Titration 254.449 Amount Norepinephrine 8 mg In 59.573 Sodium Chloride 0.9% 250 ml @ 0.03 MCG/KG/MIN 4. 766 mls/hr IV .Q24H [facility] Rx#:[id number] Vasopressin 20 unit In 45.824 Sodium Chloride 0.9% 50 ml @ 0.03 UNITS/MIN 4.59 mls/hr IV .[id number] [facility] Rx# :[id number] propofoL 1,000 mg In 149.052 Empty Bag 1 bag @ 15 MCG/ KG/MIN 7.389 mls/hr IV . [id number] [facility] Rx#:[id number] Output: Urine 2205 Stool 200 Other: Voiding Method Indwelling Catheter ABP, PAP, CO, CI - Last Documented Arterial Blood Pressure 92/37 - Labs CBC & Chem 7: 04/20/22 06:00 04/20/22 15:15 Labs: Abnormal Lab Results - Last 24 Hours (Table) 04/19/22 04/19/22 04/20/22 Range/Units 18:06 19:59 03:52 RBC (4.30-5.90) m/uL Hgb (13.0-17.5) gm/dL Hct (39.0-53.0) % MCHC (31.0-37.0) g/dL RDW (11.5-15.5) % Lymphocytes # (1.0-4.8) k/uL ABG pH (7.35-7.45) ABG pO2 (83-108) mmHg ABG HCO3 (21-25) mmol/L ABG Total CO2 (19-24) mmol/L ABG O2 Saturation (94-97) % Sodium (137-145) mmol/L Potassium (3.5-5.1) mmol/L BUN (9-20) mg/dL Creatinine (0.66-1.25) mg/dL Glucose (74-99) mg/dL POC Glucose (mg/dL) 218 H 215 H 216 H (70-110) mg/dL Calcium (8.4-10.2) mg/dL Ionized Calcium Sridevi (4.5-5.3) mg/dL AST (17-59) U/L C-Reactive Protein (<1.0) mg/dL Total Protein (6.3-8.2) g/dL Albumin (3.5-5.0) g/dL 04/20/22 04/20/22 04/20/22 Range/Units 05:40 06:00 06:00 RBC 2.98 L (4.30-5.90) m/uL Hgb 7.5 L (13.0-17.5) gm/dL Hct 24.6 L (39.0-53.0) % MCHC 30.5 L (31.0-37.0) g/dL RDW 18.7 H (11.5-15.5) % Lymphocytes # 0.5 L (1.0-4.8) k/uL ABG pH 7.48 H (7.35-7.45) ABG pO2 79 L (83-108) mmHg ABG HCO3 29 H (21-25) mmol/L ABG Total CO2 30 H (19-24) mmol/L ABG O2 Saturation 97.2 H (94-97) % Sodium 135 L (137-145) mmol/L Potassium 2.9 L (3.5-5.1) mmol/L BUN 22 H (9-20) mg/dL Creatinine 1.36 H (0.66-1.25) mg/dL Glucose 202 H (74-99) mg/dL POC Glucose (mg/dL) (70-110) mg/dL Calcium 6.9 L (8.4-10.2) mg/dL Ionized Calcium Sirdevi (4.5-5.3) mg/dL AST 13 L (17-59) U/L C-Reactive Protein (<1.0) mg/dL Total Protein 4.1 L (6.3-8.2) g/dL Albumin 2.0 L (3.5-5.0) g/dL 04/20/22 04/20/22 04/20/22 Range/Units 06:01 08:26 12:17 RBC (4.30-5.90) m/uL Hgb (13.0-17.5) gm/dL Hct (39.0-53.0) % MCHC (31.0-37.0) g/dL RDW (11.5-15.5) % Lymphocytes # (1.0-4.8) k/uL ABG pH (7.35-7.45) ABG pO2 (83-108) mmHg ABG HCO3 (21-25) mmol/L ABG Total CO2 (19-24) mmol/L ABG O2 Saturation (94-97) % Sodium (137-145) mmol/L Potassium (3.5-5.1) mmol/L BUN (9-20) mg/dL Creatinine (0.66-1.25) mg/dL Glucose (74-99) mg/dL POC Glucose (mg/dL) 221 H 230 H (70-110) mg/dL Calcium (8.4-10.2) mg/dL Ionized Calcium Sridevi 4.4 L (4.5-5.3) mg/dL AST (17-59) U/L C-Reactive Protein (<1.0) mg/dL Total Protein (6.3-8.2) g/dL Albumin (3.5-5.0) g/dL 04/20/22 04/20/22 Range/Units 15:15 17:52 RBC (4.30-5.90) m/uL Hgb (13.0-17.5) gm/dL Hct (39.0-53.0) % MCHC (31.0-37.0) g/dL RDW (11.5-15.5) % Lymphocytes # (1.0-4.8) k/uL ABG pH (7.35-7.45) ABG pO2 (83-108) mmHg ABG HCO3 (21-25) mmol/L ABG Total CO2 (19-24) mmol/L ABG O2 Saturation (94-97) % Sodium (137-145) mmol/L Potassium (3.5-5.1) mmol/L BUN (9-20) mg/dL Creatinine (0.66-1.25) mg/dL Glucose (74-99) mg/dL POC Glucose (mg/dL) 207 H (70-110) mg/dL Calcium (8.4-10.2) mg/dL Ionized Calcium Sridevi (4.5-5.3) mg/dL AST (17-59) U/L C-Reactive Protein 31.7 H (<1.0) mg/dL Total Protein (6.3-8.2) g/dL Albumin (3.5-5.0) g/dL Microbiology - Last 24 Hours (Table) 04/20/22 10:05 Wound Culture - Preliminary Abdomen 04/20/22 10:05 Anaerobic Culture - Preliminary Abdomen 04/17/22 09:10 Anaerobic Culture - Final Abdomen Anaerobic Gm Negative Bacilli Anaerobic Gm Negative Bacilli#2 04/17/22 19:00 Blood Culture - Preliminary Blood No Growth after 48 hours
[2022-04-20] MEDS: NOREPINEPHRINE 8 MG in SODIUM CHLORIDE 0.9% 250 ML IV SCH (19:10)
[2022-04-20] MEDS: VASOPRESSIN 20 UNIT in SODIUM CHLORIDE 0.9% 50 ML IV SCH (19:29)
[2022-04-20 20:01] LABS: Glucose,Whole Blood 191 mg/dL (70-110)
--- NOTE | 2022-04-20 21:49 | P.CONS ---
History of Present Illness - Reason for Consult Consult date: 04/20/22 Polymicrobial abdominal wound culture Requesting physician: Carmita Johnson - Chief Complaint Shortness of breath x days - History of Present Illness Patient is a 72-year-old male presented to the hospital about 10 days ago on April 09, 2022 as a transfer from [facility] for evaluation of shortness of breath and chest discomfort patient was noticed to have hemoglobin of 6.9 received a blood transfusion and subsequently transferred here patient was evaluated by GI services did have a EGD with moderate size hiatal hernia no peptic ulcer disease he did have a colonoscopy on 04/11/2022 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 patient subsequently was evaluated by general surgery and the patient is status post low anterior resection on 04/13/2022 patient was doing well until 04/17/2022 but the patient noticed to have anastomosis leak patient was taken back to the OR in this patient with status post exploratory laparotomy washout of the abdominal takedown of the anastomosis colostomy in the left upper quadrant patient did have a abdominal culture on 04/17/2022 which did grew anaerobic gram-negative bacilli in the aerobic cultures did grew gram-negative bacilli 3 type and group D Enterococcus unfortunately lab disregarded as a possible contamination and did not do identification of those pathogen's patient was noticed to have more purulent drainage today by the nursing staff that has prompted this infectious disease consultation of the patient has been in the hospital for almost 12 days now during this hospital stay the patient was initially afebrile however he has been spiking fever since 04/17/2022 with the highest temperature was 102 degrees following height on 04/18/2022 and a low-grade fever 100.4 this morning patient requiring more pressor support per the nursing staff patient vitals currently stable at 40% and had no significant purulent drainage through the ET, most information has been obtained from review of the chart talking to nursing staff and the family as the patient is currently intubated on the vent and unable to provide any history Review of Systems Positive points has been mentioned in HPI complete review could not be obtained because patient is intubated on a vent Past Medical History Past Medical History: Coronary Artery Disease (CAD), Chest Pain / Angina, COPD, Diabetes Mellitus, Eye Disorder, GI Bleed, Hearing Disorder / Deafness, Myocardial Infarction ([place]), Osteoarthritis (OA) Additional Past Medical History / Comment(s): See Dr Everett's H&P. Recent Flu, resolved now. More frequent angina. PREVIOUS DETACHED RETINA. "Poor kidney function 11/30, better now." Hard of hearing. Last Myocardial Infarction Date:: 2013 History of Any Multi-Drug Resistant Organisms: None Reported Past Surgical History: Appendectomy, Coronary Bypass/CABG, Heart Catheterization With Stent Additional Past Surgical History / Comment(s): TRIPLE CABG X2 (1994 AND 2013). Past Anesthesia/Blood Transfusion Reactions: No Reported Reaction Date of Last Stent Placement:: unknown Past Psychological History: No Psychological Hx Reported Smoking Status: Former smoker Past Alcohol Use History: Rare Past Drug Use History: None Reported - Past Family History Brother(s) Family Medical History: Cancer Medications and Allergies Home Medications Medication Instructions Recorded Confirmed Type Nitroglycerin Sl Tabs [Nitrostat] 0.4 mg SL Q5M PRN 09/22/13 04/09/22 History Fluticasone Propion/Salmeterol 1 puff INHALATION RT-BID PRN 11/26/21 04/09/22 History [Advair 100-50 Diskus] Rosuvastatin [Crestor] 20 mg PO DAILY 11/26/21 04/09/22 History Omeprazole [PriLOSEC] 20 mg PO DAILY 01/21/22 04/09/22 History Aspirin EC [Ecotrin Low Dose] 81 mg PO DAILY 04/09/22 04/09/22 History Acetaminophen Tab [Tylenol] 1,000 mg PO Q6HR PRN tab 04/30/22 Rx Albuterol Nebulized [Ventolin 2.5 mg INHALATION RT-Q2H PRN ml 04/30/22 Rx Nebulized] Albuterol Nebulized [Ventolin 2.5 mg INHALATION RT-QID ml 04/30/22 Rx Nebulized] Benzocaine/Menthol Lozeng [Cepacol 1 each MUCOUS MEM Q1HR PRN lozenge 04/30/22 Rx lozenge] HYDROcodone/APAP 5-325MG [[place] 1 each PO Q6H PRN #4 tab 04/30/22 Rx 5-325] Heparin Sodium,Porcine [Heparin 5,000 unit SQ Q12HR #60 each 04/30/22 Rx Sodium] INSULIN ASPART (NovoLOG) [NovoLOG 0 unit SQ Q6H each 04/30/22 Rx (formulary)] Insulin Detemir (Levemir) [Levemir] 30 unit SQ BID@0700,2100 each 04/30/22 Rx Ipratropium Nebulized [Atrovent 0.5 mg INHALATION RT-Q2H PRN ml 04/30/22 Rx Nebulized 0.2 MG/ML] Ipratropium Nebulized [Atrovent 0.5 mg INHALATION RT-QID ml 04/30/22 Rx Nebulized 0.2 MG/ML] Melatonin 3 mg PO HS tab 04/30/22 Rx Meropenem [Merrem] 1 gm IVPB Q8H #42 each 04/30/22 Rx Metoprolol Tartrate [Lopressor] 25 mg PO BID tab 04/30/22 Rx Midodrine [ProAmatine] 5 mg PO AC-TID tab 04/30/22 Rx Potassium Chloride [K-Tab ER] 20 meq PO DAILY #30 tab 04/30/22 Rx Simethicone 40 mg/0.6 ml Drops 40 mg PO QID ml 04/30/22 Rx [Mylicon Drops] Tamsulosin [Flomax] 0.4 mg PO [id number] cap 04/30/22 Rx Torsemide [Demadex] 20 mg PO DAILY tab 04/30/22 Rx Allergies Allergy/AdvReac Type Severity Reaction Status Date / Time No Known Allergies Allergy Verified 04/09/22 21:41 Physical Exam Vitals: Vital Signs Temp Pulse Resp BP Pulse Ox FiO2 04/20/22 14:00 92 28 H 93 L 04/20/22 13:45 92 25 H 93 L 04/20/22 13:30 90 25 H 93 L 04/20/22 13:15 91 25 H 92 L 04/20/22 13:00 93 24 94 L 04/20/22 12:45 95 25 H 93 L 40 04/20/22 12:30 95 25 H 93 L 04/20/22 12:15 93 25 H 94 L 04/20/22 12:05 98 04/20/22 12:00 101 H 26 H 92 L 40 04/20/22 11:52 40 04/20/22 11:48 108 H 04/20/22 11:47 40 04/20/22 11:45 100.4 F H 118 H 44 H 95 04/20/22 11:37 40 04/20/22 11:30 119 H 38 H 93 L 04/20/22 11:15 93 29 H 96 04/20/22 11:00 89 28 H 92 L 04/20/22 10:45 89 26 H 144/47 92 L 04/20/22 10:30 88 28 H 93 L 04/20/22 10:15 95 27 H 93 L 04/20/22 10:00 96 28 H 94 L 04/20/22 09:45 90 20 94 L 04/20/22 09:30 92 21 93 L 04/20/22 09:15 93 28 H 93 L 04/20/22 09:00 92 28 H 94 L 04/20/22 08:45 90 27 H 95 04/20/22 08:36 88 04/20/22 08:30 89 27 H 95 04/20/22 08:24 90 04/20/22 08:18 40 04/20/22 08:15 99.6 F 87 26 H 96 40 04/20/22 08:00 86 26 H 94 L 40 04/20/22 07:45 86 21 94 L 04/20/22 07:30 87 24 94 L 04/20/22 07:15 89 22 95 04/20/22 07:00 87 28 H 144/47 95 04/20/22 06:45 89 22 95 04/20/22 06:30 89 20 144/47 95 04/20/22 06:15 89 25 H 144/47 95 04/20/22 06:00 74 25 H 144/47 95 04/20/22 05:45 91 26 H 144/47 96 04/20/22 05:30 89 24 144/47 95 04/20/22 05:15 89 22 144/47 95 04/20/22 05:00 90 22 144/47 96 04/20/22 04:45 90 24 144/47 97 04/20/22 04:30 87 22 144/47 95 04/20/22 04:15 87 23 144/47 95 04/20/22 04:05 80 04/20/22 04:00 98.1 F 71 22 144/47 95 40 04/20/22 03:45 71 24 144/47 95 04/20/22 03:40 71 04/20/22 03:37 40 04/20/22 03:30 70 20 144/47 94 L 03/12/23 03:15 71 21 144/47 94 L 04/20/22 03:01 72 23 144/47 93 L 04/20/22 01:45 90 22 144/47 93 L 04/20/22 01:30 94 23 144/47 95 04/20/22 01:15 95 16 144/47 93 L 04/20/22 01:00 88 19 144/47 92 L 04/20/22 00:48 92 04/20/22 00:45 77 22 144/47 94 L 04/20/22 00:30 73 22 144/47 95 04/20/22 00:18 89 04/20/22 00:15 89 25 H 144/47 96 04/20/22 00:05 40 04/20/22 00:00 98.3 F 81 23 144/47 95 40 04/19/22 23:45 87 21 144/47 95 04/19/22 23:30 72 23 144/47 96 04/19/22 23:15 75 19 144/47 96 04/19/22 23:00 85 21 144/47 95 04/19/22 22:45 86 25 H 144/47 95 04/19/22 22:30 85 21 144/47 94 L 04/19/22 22:15 78 23 144/47 96 04/19/22 22:00 78 23 144/47 94 L 04/19/22 21:45 81 25 H 144/47 95 04/19/22 21:30 82 23 144/47 96 04/19/22 21:15 79 21 144/47 94 L 04/19/22 21:14 100.3 F H 80 21 144/47 94 L 04/19/22 21:00 81 21 144/47 95 04/19/22 20:49 80 04/19/22 20:45 81 20 144/47 95 04/19/22 20:30 74 25 H 144/47 95 04/19/22 20:20 77 04/19/22 20:18 40 04/19/22 20:15 76 22 144/47 96 04/19/22 20:00 100.4 F H 73 22 144/47 95 40 04/19/22 19:45 75 22 144/47 95 04/19/22 19:30 74 22 95 04/19/22 19:15 75 24 95 04/19/22 19:00 76 23 95 40 04/19/22 18:45 71 23 94 L 04/19/22 18:30 71 20 94 L 04/19/22 18:15 71 22 94 L 04/19/22 18:00 68 22 95 40 04/19/22 17:45 76 21 94 L 04/19/22 17:30 90 23 94 L 04/19/22 17:15 89 20 94 L 04/19/22 17:00 90 20 95 40 04/19/22 16:45 90 21 95 04/19/22 16:30 91 94 L 04/19/22 16:16 40 04/19/22 16:15 90 20 94 L 04/19/22 16:07 90 04/19/22 16:00 99.4 F 92 20 95 40 04/19/22 15:57 88 40 04/19/22 15:45 90 20 94 L 04/19/22 15:30 76 20 94 L 04/19/22 15:15 90 20 94 L 04/19/22 15:00 87 23 94 L 40 04/19/22 14:45 89 20 95 04/19/22 14:30 87 21 95 04/19/22 14:15 87 23 95 04/19/22 14:00 87 20 95 40 04/19/22 13:45 88 95 04/19/22 13:30 90 20 96 Intake and Output 04/19/22 04/20/22 04/20/22 21:59 06:59 14:59 Intake Total 782.201 Output Total 1080 Balance -297.799 Intake: IV 625 0.9 150 Calcium Gluconate 1 gm In 177 Amino Acid 4.25%-D10w+ Lytes*E* 1,000 ml @ 59 mls/hr IV .BY DURATION [facility] Rx#:[id number] DAPTOmycin 500 mg In 50 Sodium Chloride 0.9% 50 ml @ 100 mls/hr IVPB Q24H [facility] Rx#:[id number] Fluconazole in NaCl,Iso- 100 Osm 200 mg In Saline 1 100ml.bag @ 100 mls/hr IVPB DAILY [facility] Rx#: [id number] Mvi, Adult No.4 with Vit K 10 ml Trace (Conc-1Ml/ Dose) 1 ml Calcium Gluconate 1 gm In Amino Acid 4.25%-D10w+Lytes*E* 1,000 ml @ 30 mls/hr IV . Q24H [facility] Rx#:[id number] Piperacillin-Tazobactam 3 100 .375 gm In Sodium Chloride 0.9% 100 ml @ 25 mls/hr IVPB Q8H [facility] Rx#: [id number] Pressure Bags 48 Intake, IV Titration 157.201 Amount Norepinephrine 8 mg In 18.851 Sodium Chloride 0.9% 250 ml @ 0.03 MCG/KG/MIN 4. 766 mls/hr IV .Q24H [facility] Rx#:[id number] Vasopressin 20 unit In 45.824 Sodium Chloride 0.9% 50 ml @ 0.03 UNITS/MIN 4.59 mls/hr IV .Q11H7M [facility] Rx# :[id number] propofoL 1,000 mg In 92.526 Empty Bag 1 bag @ 15 MCG/ KG/MIN 7.389 mls/hr IV . [id number] [facility] Rx#:[id number] Output: Urine 1080 Stool Other: Voiding Method Indwelling Catheter Weight ABP, PAP, CO, CI - Last 8 Hours Arterial Blood Pressure 111/37 Arterial Blood Pressure 112/41 Arterial Blood Pressure 103/37 Arterial Blood Pressure 101/36 Arterial Blood Pressure 95/35 Arterial Blood Pressure 97/36 Arterial Blood Pressure 94/36 Arterial Blood Pressure 103/38 Arterial Blood Pressure 103/38 Arterial Blood Pressure 125/44 Arterial Blood Pressure 165/68 Arterial Blood Pressure 123/41 Arterial Blood Pressure 101/35 Arterial Blood Pressure 96/34 Arterial Blood Pressure 105/37 Arterial Blood Pressure 102/40 Arterial Blood Pressure 112/43 Arterial Blood Pressure 118/45 Arterial Blood Pressure 95/38 Arterial Blood Pressure 94/37 Arterial Blood Pressure 100/38 Arterial Blood Pressure 103/38 Arterial Blood Pressure 114/41 Arterial Blood Pressure 133/48 Arterial Blood Pressure 100/43 Arterial Blood Pressure 105/44 Arterial Blood Pressure 113/46 Arterial Blood Pressure 122/47 Arterial Blood Pressure 127/50 Arterial Blood Pressure 116/46 Arterial Blood Pressure 116/45 GENERAL DESCRIPTION: Elderly male lying in bed, no distress. No tachypnea or accessory muscle of respiration use. HEENT: Shows Pallor , no scleral icterus. Patient is orally intubated NECK: Trachea central, no thyromegaly. LUNGS: Unlabored breathing. Decreased breath sounds at the base HEART: S1, S2, regular rate and rhythm. No loud murmur ABDOMEN: Soft, midline incision is open with some drainage EXTREMITIES: No edema of feet. SKIN: No rash, no masses palpable. NEUROLOGICAL: The patient is sedated on the vent. Results CBC & Chem 7: 05/02/22 07:00 05/02/22 07:00 Labs: Abnormal Lab Results - Last 24 Hours (Table) 04/19/22 04/19/22 04/20/22 Range/Units 18:06 19:59 03:52 RBC (4.30-5.90) m/uL Hgb (13.0-17.5) gm/dL Hct (39.0-53.0) % MCHC (31.0-37.0) g/dL RDW (11.5-15.5) % Lymphocytes # (1.0-4.8) k/uL ABG pH (7.35-7.45) ABG pO2 (83-108) mmHg ABG HCO3 (21-25) mmol/L ABG Total CO2 (19-24) mmol/L ABG O2 Saturation (94-97) % Sodium (137-145) mmol/L Potassium (3.5-5.1) mmol/L BUN (9-20) mg/dL Creatinine (0.66-1.25) mg/dL Glucose (74-99) mg/dL POC Glucose (mg/dL) 218 H 215 H 216 H (70-110) mg/dL Calcium (8.4-10.2) mg/dL Ionized Calcium Sridevi (4.5-5.3) mg/dL AST (17-59) U/L Total Protein (6.3-8.2) g/dL Albumin (3.5-5.0) g/dL 04/20/22 04/20/22 04/20/22 Range/Units 05:40 06:00 06:00 RBC 2.98 L (4.30-5.90) m/uL Hgb 7.5 L (13.0-17.5) gm/dL Hct 24.6 L (39.0-53.0) % MCHC 30.5 L (31.0-37.0) g/dL RDW 18.7 H (11.5-15.5) % Lymphocytes # 0.5 L (1.0-4.8) k/uL ABG pH 7.48 H (7.35-7.45) ABG pO2 79 L (83-108) mmHg ABG HCO3 29 H (21-25) mmol/L ABG Total CO2 30 H (19-24) mmol/L ABG O2 Saturation 97.2 H (94-97) % Sodium 135 L (137-145) mmol/L Potassium 2.9 L (3.5-5.1) mmol/L BUN 22 H (9-20) mg/dL Creatinine 1.36 H (0.66-1.25) mg/dL Glucose 202 H (74-99) mg/dL POC Glucose (mg/dL) (70-110) mg/dL Calcium 6.9 L (8.4-10.2) mg/dL Ionized Calcium Sridevi (4.5-5.3) mg/dL AST 13 L (17-59) U/L Total Protein 4.1 L (6.3-8.2) g/dL Albumin 2.0 L (3.5-5.0) g/dL 04/20/22 04/20/22 04/20/22 Range/Units 06:01 08:26 12:17 RBC (4.30-5.90) m/uL Hgb (13.0-17.5) gm/dL Hct (39.0-53.0) % MCHC (31.0-37.0) g/dL RDW (11.5-15.5) % Lymphocytes # (1.0-4.8) k/uL ABG pH (7.35-7.45) ABG pO2 (83-108) mmHg ABG HCO3 (21-25) mmol/L ABG Total CO2 (19-24) mmol/L ABG O2 Saturation (94-97) % Sodium (137-145) mmol/L Potassium (3.5-5.1) mmol/L BUN (9-20) mg/dL Creatinine (0.66-1.25) mg/dL Glucose (74-99) mg/dL POC Glucose (mg/dL) 221 H 230 H (70-110) mg/dL Calcium (8.4-10.2) mg/dL Ionized Calcium Sridevi 4.4 L (4.5-5.3) mg/dL AST (17-59) U/L Total Protein (6.3-8.2) g/dL Albumin (3.5-5.0) g/dL Microbiology - Last 24 Hours (Table) 04/17/22 19:00 Blood Culture - Preliminary Blood No Growth after 48 hours Assessment and Plan (1) Abdominal wall abscess Status: Acute Code(s): L02.211 - CUTANEOUS ABSCESS OF ABDOMINAL WALL SNOMED Code(s): 37881085 Plan: 1patient with admission to the hospital with symptomatic anemia 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 2we will obtain blood cultures and inflammatory markers 3patient was started on daptomycin today and Zosyn yesterday which will be continued while waiting for repeat cultures to be finalized. 4May benefit from a CT of abdominal pelvis without evidence of any deep abscess that may need to be drained if okay with surgery. Family at the bedside they have multiple questions and concerns were answered We will follow on clinical condition and cultures to further adjust medication if needed Thank you for this consultation we will follow the patient along with you Time with Patient: Greater than 30
[2022-04-21 00:23] LABS: Glucose,Whole Blood 193 mg/dL (70-110)
[2022-04-21] MEDS: ALBUTEROL NEBULIZED 2.5 MG/3 ML INHALATION SCH ×7 (00:31→23:31)
[2022-04-21] MEDS: IPRATROPIUM 0.5 MG/2.5 ML NEBU INHALATION SCH ×7 (00:31→23:31)
[2022-04-21] MEDS: VASOPRESSIN 20 UNIT in SODIUM CHLORIDE 0.9% 50 ML IV SCH ×3 (02:23→22:18)
[2022-04-21] MEDS: PIPERACILLIN-TAZOBACTAM 3.375 GM in SODIUM CHLORIDE 0.9% 100 ML IVPB SCH ×3 (02:26→18:01)
[2022-04-21] MEDS: HEPARIN SODIUM,PORCINE/PF 5,000 UNIT/0.5 ML SYRINGE SQ SCH ×3 (02:26→14:42)
[2022-04-21] MEDS: INSULIN ASPART (NovoLOG) 100 UNIT/ML VIAL SQ SCH ×5 (02:26→19:43)
[2022-04-21] MEDS: HYDROmorphone 1 MG/ML 1 ML SYRINGE IVP PRN ×2 (02:27→16:24)
[2022-04-21 05:32] LABS: ABG Base Excess 8.9 mmol/L; ABG HCO3 32 mmol/L (21-25); ABG Oxygen Saturation 98.3 % (94-97); ABG PCO2 40 mmHg (35-45); ABG PH 7.51 (7.35-7.45); ABG PO2 97 mmHg (83-108); ABG TCO2 33 mmol/L (19-24); Allen Test Performed? Yes
[2022-04-21] MEDS: 1: MVI, ADULT NO.4 WITH VIT K 10 ML, TRACE (CONC-1ML/DOSE) 1 ML, CALCIUM GLUCONATE 1 GM, IV SCH ×17 (05:50→23:36)
[2022-04-21 05:55] LABS: Glucose,Whole Blood 129 mg/dL (70-110)
[2022-04-21 06:22] LABS: Calcium 7.2 mg/dL (8.4-10.2); Potassium 3.6 mmol/L (3.5-5.1); Total Bilirubin 0.5 mg/dL (0.2-1.3); Total Protein 4.3 g/dL (6.3-8.2)
[2022-04-21 06:27] LABS: Anisocytosis Slight; Basophils % (A) 0 %; Eosinophils # (A) 0.2 k/uL (0-0.7); Eosinophils % (A) 2 %; HCT 25.2 % (39.0-53.0); HGB 7.7 gm/dL (13.0-17.5); Hypochromasia Marked; Lymphocytes # (A) 0.7 k/uL (1.0-4.8); Lymphocytes % (A) 6 %; MCH 25.1 pg (25.0-35.0); MCHC 30.5 g/dL (31.0-37.0); MCV 82.2 fL (80.0-100.0); Mean Platelet Volume 7.9; Microcytosis Slight; Monocytes % (A) 9 %; Neutrophils # (A) 9.9 k/uL (1.3-7.7); Neutrophils % (A) 81 %; Platelet Count 282 k/uL (150-450); Poikilocytosis Moderate; RBC 3.07 m/uL (4.30-5.90); RDW 18.9 % (11.5-15.5); WBC 12.2 k/uL (3.8-10.6)
[2022-04-21 06:35] LABS: Magnesium 1.7 mg/dL (1.6-2.3); Phosphorus 2.6 mg/dL (2.5-4.5)
[2022-04-21] MEDS ORDERED: POTASSIUM BICARBONATE/CIT AC 20 MEQ TABLET.EFF NG-TUBE SCH (07:00)
--- NOTE | 2022-04-21 07:17 | XR ---
EXAMINATION TYPE: XR chest 1V portable DATE OF EXAM: 04/21/2022 6:22 AM COMPARISON: Chest radiographs from 04/20/2022 TECHNIQUE: XR chest 1V portable Portable AP radiograph of the chest. CLINICAL INDICATION:Male, 72 years old with history of Tube placement; FINDINGS: Lungs/Pleura: No evidence of focal consolidation or pneumothorax. Blunting of the costophrenic angles is present. Pulmonary vascularity: Unremarkable. Heart/mediastinum: Cardiomediastinal silhouette is enlarged and stable. Musculoskeletal: No acute osseous pathology. Midline sternotomy wires are noted. Lines/Tubes: Endotracheal tube with distal tip 4.1 cm above the judah. Nasogastric tube with its distal tip and side-port projecting under the diaphragm. Left internal jugular central venous catheter with distal tip at the cavoatrial junction. IMPRESSION: 1. Stable exam with Support tubes and line in appropriate position. 2. Persistent bilateral pleural effusions.
[2022-04-21] MEDS ORDERED: MAGNESIUM SULFATE-D5W PMX 1 GM in DEXTROSE/WATER 1 100ML.BAG IVPB ONE (08:00)
[2022-04-21] MEDS: CHLORHEXIDINE GLUCONATE 15 ML CUP MUCOUS MEM SCH (08:17)
[2022-04-21] MEDS: FAMOTIDINE 20 MG/2 ML VIAL IV SCH (08:17)
[2022-04-21] MEDS: ASPIRIN 81 MG PO SCH (08:17)
[2022-04-21] MEDS: ATORVASTATIN 40 MG TAB PO SCH (08:17)
[2022-04-21] MEDS: INSULIN DETEMIR (LEVEMIR) 100 UNIT/ML SYR SQ SCH ×2 (08:17→21:39)
[2022-04-21] MEDS: SIMETHICONE 40 MG/0.6 ML DROPS 2,000 MG/30 ML BOTTLE PO SCH ×4 (08:18→21:41)
[2022-04-21] MEDS: TAMSULOSIN 0.4 MG CAP.ER.24H PO SCH (08:20)
[2022-04-21] MEDS: NOREPINEPHRINE 8 MG in SODIUM CHLORIDE 0.9% 250 ML IV SCH (08:32)
[2022-04-21] MEDS: FLUCONAZOLE IN NACL,ISO-OSM 200 MG in SALINE 1 100ML.BAG IVPB SCH (09:05)
[2022-04-21] MEDS ORDERED: FUROSEMIDE 10 MG/ML 2 ML VIAL IV ONE (10:34)
--- NOTE | 2022-04-21 10:51 | P.PN ---
Subjective Patient is seen for follow-up for acute kidney injury, mostly ATN currently improving. Status post low anterior resection on 04/13/2022 for sigmoid mass and currently with a colostomy. Patient remains intubated. Sedation is being weaned down. Serum creatinine continues to improve. It is at 1.3 for today. Urine output at 100-125 mL per hour. Objective - Vital Signs Vital signs: Vital Signs Temp 100.1 F H 04/21/22 08:00 Pulse 92 04/21/22 10:00 Resp 27 H 04/21/22 10:00 BP 144/47 04/21/22 02:15 Pulse Ox 94 L 04/21/22 10:00 FiO2 40 04/21/22 08:00 Intake & Output 04/20/22 04/21/22 04/21/22 18:59 06:59 18:59 Intake Total 1334.684 596.785 700.345 Output Total 2405 2018 460 Balance -1070.316 -1421.215 240.345 Weight 102.9 kg Intake: IV 996 192 194 0.9 220 120 70 Calcium Gluconate 1 gm In 354 Amino Acid 4.25%-D10w+ Lytes*E* 1,000 ml @ 59 mls/hr IV .BY DURATION [facility] Rx#:[id number] DAPTOmycin 500 mg In 50 Sodium Chloride 0.9% 50 ml @ 100 mls/hr IVPB Q24H [facility] Rx#:[id number] Fluconazole in NaCl,Iso- 100 100 Osm 200 mg In Saline 1 100ml.bag @ 100 mls/hr IVPB DAILY [facility] Rx#: [id number] Piperacillin-Tazobactam 3 200 .375 gm In Sodium Chloride 0.9% 100 ml @ 25 mls/hr IVPB Q8H [facility] Rx#: [id number] Pressure Bags 72 72 24 Intake, IV Titration 338.684 404.785 446.345 Amount Magnesium Sulfate-D5w Pmx 100 1 gm In Dextrose/Water 1 100ml.bag @ 100 mls/hr IVPB ONCE ONE Rx#: [id number] [facility], Adult No.4 with Vit 177 K 10 ml Trace (Conc-1Ml/ Dose) 1 ml Calcium Gluconate 1 gm Potassium Chloride 20 meq Magnesium Sulfate gm 1 gm In Amino Acid 4.25%-D10w+Lytes*E* 1,000 ml @ 59 mls/hr IV .BY DURATION [facility] Rx#: [id number] Norepinephrine 8 mg In 59.573 304.785 23.247 Sodium Chloride 0.9% 250 ml @ 0.03 MCG/KG/MIN 4. 766 mls/hr IV .Q24H [facility] Rx#:[id number] Vasopressin 20 unit In 45.824 Sodium Chloride 0.9% 50 ml @ 0.03 UNITS/MIN 4.59 mls/hr IV .Q11H7M [facility] Rx# :[id number] propofoL 1,000 mg In 233.287 100 146.098 Empty Bag 1 bag @ 15 MCG/ KG/MIN 7.389 mls/hr IV . [id number] [facility] Rx#:[id number] Other 60 Output: Urine 2205 2018 460 Stool 200 Other: Voiding Method Indwelling Catheter Indwelling Catheter Indwelling Catheter ABP, PAP, CO, CI - Last Documented Arterial Blood Pressure 123/48 - Exam Patient is intubated Trying to wake up Examination of the heart S1 and S2 Examination the lungs bilateral breath sounds are heard Abdomen is soft Examination lower ex Mittie shows edema 2-3+ bilaterally with significant scrotal edema - Labs CBC & Chem 7: 04/21/22 05:50 04/21/22 05:50 Labs: Abnormal Lab Results - Last 24 Hours (Table) 04/20/22 04/20/22 04/20/22 Range/Units 12:17 15:15 17:52 WBC (3.8-10.6) k/uL RBC (4.30-5.90) m/uL Hgb (13.0-17.5) gm/dL Hct (39.0-53.0) % MCHC (31.0-37.0) g/dL RDW (11.5-15.5) % Neutrophils # (1.3-7.7) k/uL Lymphocytes # (1.0-4.8) k/uL ABG pH (7.35-7.45) ABG HCO3 (21-25) mmol/L ABG Total CO2 (19-24) mmol/L ABG O2 Saturation (94-97) % Carbon Dioxide (22-30) mmol/L Creatinine (0.66-1.25) mg/dL Glucose (74-99) mg/dL POC Glucose (mg/dL) 230 H 207 H (70-110) mg/dL Calcium (8.4-10.2) mg/dL AST (17-59) U/L C-Reactive Protein 31.7 H (<1.0) mg/dL Total Protein (6.3-8.2) g/dL Albumin (3.5-5.0) g/dL 04/20/22 04/21/22 04/21/22 Range/Units 19:59 00:22 05:35 WBC (3.8-10.6) k/uL RBC (4.30-5.90) m/uL Hgb (13.0-17.5) gm/dL Hct (39.0-53.0) % MCHC (31.0-37.0) g/dL RDW (11.5-15.5) % Neutrophils # (1.3-7.7) k/uL Lymphocytes # (1.0-4.8) k/uL ABG pH 7.51 H (7.35-7.45) ABG HCO3 32 H (21-25) mmol/L ABG Total CO2 33 H (19-24) mmol/L ABG O2 Saturation 98.3 H (94-97) % Carbon Dioxide (22-30) mmol/L Creatinine (0.66-1.25) mg/dL Glucose (74-99) mg/dL POC Glucose (mg/dL) 191 H 193 H (70-110) mg/dL Calcium (8.4-10.2) mg/dL AST (17-59) U/L C-Reactive Protein (<1.0) mg/dL Total Protein (6.3-8.2) g/dL Albumin (3.5-5.0) g/dL 04/21/22 04/21/22 04/21/22 Range/Units 05:50 05:50 05:54 WBC 12.2 H (3.8-10.6) k/uL RBC 3.07 L (4.30-5.90) m/uL Hgb 7.7 L (13.0-17.5) gm/dL Hct 25.2 L (39.0-53.0) % MCHC 30.5 L (31.0-37.0) g/dL RDW 18.9 H (11.5-15.5) % Neutrophils # 9.9 H (1.3-7.7) k/uL Lymphocytes # 0.7 L (1.0-4.8) k/uL ABG pH (7.35-7.45) ABG HCO3 (21-25) mmol/L ABG Total CO2 (19-24) mmol/L ABG O2 Saturation (94-97) % Carbon Dioxide 31 H (22-30) mmol/L Creatinine 1.34 H (0.66-1.25) mg/dL Glucose 117 H (74-99) mg/dL POC Glucose (mg/dL) 129 H (70-110) mg/dL Calcium 7.2 L (8.4-10.2) mg/dL AST 15 L (17-59) U/L C-Reactive Protein (<1.0) mg/dL Total Protein 4.3 L (6.3-8.2) g/dL Albumin 2.0 L (3.5-5.0) g/dL Microbiology - Last 24 Hours (Table) 04/17/22 09:10 Gram Stain - Final Abdomen Wound Culture - Final 04/20/22 10:05 Gram Stain - Preliminary Abdomen Wound Culture - Preliminary 04/17/22 19:00 Blood Culture - Preliminary Blood No Growth after 72 hours 04/20/22 10:05 Anaerobic Culture - Preliminary Abdomen 04/17/22 09:10 Anaerobic Culture - Final Abdomen Anaerobic Gm Negative Bacilli Anaerobic Gm Negative Bacilli#2 Assessment and Plan Assessment: 1. Acute kidney injury secondary to urinary retention and ATN. Creatinine peaked at 2.86 but improved to 1.3 this morning. Good urine output 2. Sigmoid mass and GI bleeding with severe anemia. Status post exploratory lap and colostomy 04/17/2022 3. Ventilator dependent respiratory failure on 40% 4. Volume overload with significant third spacing and scrotal edema 5. Status post coronary artery bypass graft remote 6. Mild hypokalemia secondary to diuresis 7. Metabolic acidosis resolved currently off bicarb drip. Plan: Continue off of IV fluids IV Lasix 1 Repeat labs in a.m.
--- NOTE | 2022-04-21 11:30 | P.PN ---
Subjective Progress Note Date: 04/21/22 CHIEF COMPLAINT: Colon mass HISTORY OF PRESENT ILLNESS: Patient is postop day #4 status post exploratory laparotomy, washout of abdomen takedown of anastomosis and colostomy in the left upper quadrant for anastomotic leak secondary to ischemic colon. Patient remains in the ICU. He is currently intubated and on mechanical ventilation. He is scheduled for a weaning trial today. He's been having low-grade fevers. WBC is elevated at 12.2 Hgb 7.7 platelets 282 sodium 140 potassium 3.6 cr1.34 and urine output. Nursing staff reporting purulent discharge from incision. He has a small dose of Levophed. Patient seen and examined with Dr. Carrera PHYSICAL EXAM: VITAL SIGNS: Reviewed. GENERAL: Well-developed in no acute distress. HEENT: No sclera icterus. Extraocular movements grossly intact. Moist buccal mucosa. Head is atraumatic, normocephalic. ABDOMEN: Soft. Incisional dressing recently changed and clean and intact. Colostomy with stool NEUROLOGIC: Alert and oriented. Cranial nerves II through XII grossly intact. ASSESSMENT: 1. 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 Anastomotic leak secondary to ischemic colon status post exploratory laparotomy, abdominal washout and colostomy placement 3. Anemia due to GI bleed from the colon mass 4. History of coronary disease with stents placed in February 2022 with prior CABG 5. Intra-abdominal sepsis PLAN: -Continue ICU management -Continue supportive care -Continue antibiotics -Continue TPN for nutrition support -Continue wet-to-dry dressing changes -GI prophylaxis Pepcid and DVT prophylaxis subcu heparin Physician Dj Instructor note has been reviewed by physician. Signing provider agrees with the documented findings, assessment, and plan of care. Objective - Vital Signs Vital signs: Vital Signs Temp 100.1 F H 04/21/22 08:00 Pulse 92 04/21/22 10:00 Resp 27 H 04/21/22 10:00 BP 144/47 04/21/22 02:15 Pulse Ox 94 L 04/21/22 10:00 FiO2 40 04/21/22 08:00 Intake & Output 04/20/22 04/21/22 04/21/22 18:59 06:59 18:59 Intake Total 1334.684 596.785 698.426 Output Total 2405 2018 460 Balance -1070.316 -1421.215 238.426 Weight 102.9 kg Intake: IV 996 192 194 0.9 220 120 70 Calcium Gluconate 1 gm In 354 Amino Acid 4.25%-D10w+ Lytes*E* 1,000 ml @ 59 mls/hr IV .BY DURATION [facility] Rx#:[id number] DAPTOmycin 500 mg In 50 Sodium Chloride 0.9% 50 ml @ 100 mls/hr IVPB Q24H [facility] Rx#:[id number] Fluconazole in NaCl,Iso- 100 100 Osm 200 mg In Saline 1 100ml.bag @ 100 mls/hr IVPB DAILY [facility] Rx#: [id number] Piperacillin-Tazobactam 3 200 .375 gm In Sodium Chloride 0.9% 100 ml @ 25 mls/hr IVPB Q8H [facility] Rx#: [id number] Pressure Bags 72 72 24 Intake, IV Titration 338.684 404.785 444.426 Amount Magnesium Sulfate-D5w Pmx 100 1 gm In Dextrose/Water 1 100ml.bag @ 100 mls/hr IVPB ONCE ONE Rx#: [id number] [facility]vi, Adult No.4 with Vit 177 K 10 ml Trace (Conc-1Ml/ Dose) 1 ml Calcium Gluconate 1 gm Potassium Chloride 20 meq Magnesium Sulfate gm 1 gm In Amino Acid 4.25%-D10w+Lytes*E* 1,000 ml @ 59 mls/hr IV .BY DURATION [facility] Rx#: [id number] Norepinephrine 8 mg In 59.573 304.785 22.929 Sodium Chloride 0.9% 250 ml @ 0.03 MCG/KG/MIN 4. 766 mls/hr IV .Q24H [facility] Rx#:[id number] Vasopressin 20 unit In 45.824 Sodium Chloride 0.9% 50 ml @ 0.03 UNITS/MIN 4.59 mls/hr IV .Q11H7M [facility] Rx# :[id number] propofoL 1,000 mg In 233.287 100 144.497 Empty Bag 1 bag @ 15 MCG/ KG/MIN 7.389 mls/hr IV . [id number] [facility] Rx#:[id number] Other 60 Output: Urine 2205 2018 460 Stool 200 Other: Voiding Method Indwelling Catheter Indwelling Catheter Indwelling Catheter ABP, PAP, CO, CI - Last Documented Arterial Blood Pressure 123/48 - Labs CBC & Chem 7: 04/21/22 05:50 04/21/22 05:50 Labs: Abnormal Lab Results - Last 24 Hours (Table) 04/20/22 04/20/22 04/20/22 Range/Units 12:17 15:15 17:52 WBC (3.8-10.6) k/uL RBC (4.30-5.90) m/uL Hgb (13.0-17.5) gm/dL Hct (39.0-53.0) % MCHC (31.0-37.0) g/dL RDW (11.5-15.5) % Neutrophils # (1.3-7.7) k/uL Lymphocytes # (1.0-4.8) k/uL ABG pH (7.35-7.45) ABG HCO3 (21-25) mmol/L ABG Total CO2 (19-24) mmol/L ABG O2 Saturation (94-97) % Carbon Dioxide (22-30) mmol/L Creatinine (0.66-1.25) mg/dL Glucose (74-99) mg/dL POC Glucose (mg/dL) 230 H 207 H (70-110) mg/dL Calcium (8.4-10.2) mg/dL AST (17-59) U/L C-Reactive Protein 31.7 H (<1.0) mg/dL Total Protein (6.3-8.2) g/dL Albumin (3.5-5.0) g/dL 04/20/22 04/21/22 04/21/22 Range/Units 19:59 00:22 05:35 WBC (3.8-10.6) k/uL RBC (4.30-5.90) m/uL Hgb (13.0-17.5) gm/dL Hct (39.0-53.0) % MCHC (31.0-37.0) g/dL RDW (11.5-15.5) % Neutrophils # (1.3-7.7) k/uL Lymphocytes # (1.0-4.8) k/uL ABG pH 7.51 H (7.35-7.45) ABG HCO3 32 H (21-25) mmol/L ABG Total CO2 33 H (19-24) mmol/L ABG O2 Saturation 98.3 H (94-97) % Carbon Dioxide (22-30) mmol/L Creatinine (0.66-1.25) mg/dL Glucose (74-99) mg/dL POC Glucose (mg/dL) 191 H 193 H (70-110) mg/dL Calcium (8.4-10.2) mg/dL AST (17-59) U/L C-Reactive Protein (<1.0) mg/dL Total Protein (6.3-8.2) g/dL Albumin (3.5-5.0) g/dL 04/21/22 04/21/22 04/21/22 Range/Units 05:50 05:50 05:54 WBC 12.2 H (3.8-10.6) k/uL RBC 3.07 L (4.30-5.90) m/uL Hgb 7.7 L (13.0-17.5) gm/dL Hct 25.2 L (39.0-53.0) % MCHC 30.5 L (31.0-37.0) g/dL RDW 18.9 H (11.5-15.5) % Neutrophils # 9.9 H (1.3-7.7) k/uL Lymphocytes # 0.7 L (1.0-4.8) k/uL ABG pH (7.35-7.45) ABG HCO3 (21-25) mmol/L ABG Total CO2 (19-24) mmol/L ABG O2 Saturation (94-97) % Carbon Dioxide 31 H (22-30) mmol/L Creatinine 1.34 H (0.66-1.25) mg/dL Glucose 117 H (74-99) mg/dL POC Glucose (mg/dL) 129 H (70-110) mg/dL Calcium 7.2 L (8.4-10.2) mg/dL AST 15 L (17-59) U/L C-Reactive Protein (<1.0) mg/dL Total Protein 4.3 L (6.3-8.2) g/dL Albumin 2.0 L (3.5-5.0) g/dL Microbiology - Last 24 Hours (Table) 04/17/22 09:10 Gram Stain - Final Abdomen Wound Culture - Final 04/20/22 10:05 Gram Stain - Preliminary Abdomen Wound Culture - Preliminary 04/17/22 19:00 Blood Culture - Preliminary Blood No Growth after 72 hours 04/20/22 10:05 Anaerobic Culture - Preliminary Abdomen 04/17/22 09:10 Anaerobic Culture - Final Abdomen Anaerobic Gm Negative Bacilli Anaerobic Gm Negative Bacilli#2
--- NOTE | 2022-04-21 11:45 | P.PN ---
Subjective Progress Note Date: 04/21/22 Principal diagnosis: Acute hypoxic respiratory failure secondary to acute abdominal sepsis, and septic shock, This is a 72-year-old male patient was brought into the intensive care unit after having his second surgery on 04/17/2022 which involved expiratory laparotomy, the patient had the surgery for an underlying anastomotic leak. The patient underwent a abdominal washout and takedown of anastomosis and colectomy and colostomy in the left upper quadrant. Estimated blood loss was around 25 mL. Postop, the patient was kept intubated on a mechanical ventilator. He was brought into the intensive care unit. He was quite hypotensive. His CVP was low on the eighth. He will received a total of saline boluses and following that he was started on pressors. Currently norepinephrine is running at 0.24 mcg/kg/m. The patient is intubated on a mechanical ventilator. Is currently on propofol at 45 mcg/kg/m and the patient is currently on assist control mode at a rate of 20, tidal volume of 450, FiO2 40% and a PEEP of 5. Note that overnight, the patient was found to be acidotic. He was given IV bicarb and following that he was started on a bicarbonate infusion which is still running at the rate of 150 mL an hour. Serum bicarb today is up to 20. Blood gas from today showed a pH of 7.38 with episodes of 34 and a pO2 of 120 and this was on FiO2 of 50%. WBC count is at 7.5 with a hemoglobin of 8.4 and a platelet count of 243. He did not fluid balance is positive for liters at least over the past 12 hours. The patient remains on IV Zosyn. He is adequately sedated. His colostomy site is light pink without evidence of any necrosis. The patient has no output in the colostomy bag. Surgical 1 site was inspected. The patient has retention sutures. There is leak of serosanguineous/bloody effusion from the one surface. The patient has a large midabdominal incision extending above and below the umbilicus all the way down to his pelvis. He does have scrotal edema. He does have +1 pitting edema. Orogastric tube is also in place. Ultrasound OG is only 200 over the past 8 hours. Note that this patient has history of coronary artery disease with previous bypass surgery and had a recent stent placement in February 2022. He came into the emergency department for shortness of breath. He was found to be intimate with a hemoglobin of 6.9. Given a unit of packed RBC. His fecal occult blood was positive. He underwent EGD and colonoscopy. EGD showed moderately sized hiatal hernia and colonoscopy showed a circumferential sigmoid mass 28 cm from the anal verge and 5 mm rectal polyp. Based on that, the patient was taken to the operating room on 04/13/2022 and the patient underwent a low anterior resection on 04/13/2022. His course was comp licated by development of abdominal distention and worsening shortness of breath. This occurred on postoperative day #4. A CAT scan of the abdomen was done yesterday that showed evidence of a moderate to large amount of free intraperitoneal air consistent with anastomotic leak. There was also moderate bilateral pleural effusions. There was small amount of ascites around the liver. There was large hiatal hernia and by the edema. Chest x-ray from today is showing cardiomegaly, bilateral pleural effusion, is about the pulmonary infiltrates, thoracotomy wires, triple-lumen catheter in his left IJ and adequate positioning of the orogastric tube. There is evidence also of bilateral pleural effusions. On 04/19/2022, the patient remains intubated on a mechanical ventilator. The patient is postop day #2. THE patient had an anastomotic leak following bowel surgery in a patient presented to the intensive care following his surgery intubated on a mechanical ventilator. This morning, the patient is on propofol running at 45 mcg/kg/m. His calm and comfortable and symptoms mechanical v entilator. At the same time, is on assist control mode at a rate of 20, tidal volume of 450, FiO2 of 40% with a PEEP of 5. The blood gas from this morning shows a pH of 7.42 pCO2 of 42 and pO2 of 92. The chest x-ray from today is showing bilateral pleural effusion/consolidation is worse on the right. 82 is around 1.5 cm away from judah. Triple-lumen catheter was also placed in his left IJ. Hemodynamically, the patient is on IV fluids and currently is on bicarb infusion running at the rate of 75 mL an hour. His bicarb can be discontinued as the patient's serum bicarb is up to 25. Sodium is at 137 with a potassium level of 3.[address] Urine output is in order of 150 mL an hour. His overall fluid balance over the past 24 hours has been +3.5 L. In terms of hemodynamic support, the patient is on norepinephrine running at 0.1 mcg/kg/m. He also has vasopressin at physiologic dose at 0.03 units an hour. Cardiac rhythm is sinus. The patient was started on TPN for nutritional support which is running at the rate of 30 mL an hour. He is showing some signs of fluid overload with increase in scrotal edema. The colostomy stoma is viable. The tissue looks healthy. There is some liquidy material collecting in the bag. The abdomen is distended. Surgical wound is open and there is some limited serosanguineous material from the surgical one-sided. Orogastric tube in place. Output from the OG has been in the order of 10-20 mL over the past 24 hours. Patient is calm and comfortable. He is running episodes of fever. His T-max was 102. Blood culture is negative. Intra-abdominal cultures are still pending for now. The 2022, the patient's postop day #3 following his surgery for anastomotic leak, colectomy and diverticular colostomy. On today's evaluation, the patient remains on a mechanical ventilator. He is currently on propofol which is runn ing at 45 mcg/kg/m and his well rested. He remains on a mechanical ventilator. He is on assist control mode at the rate of 20, tidal volume of 450, FiO2 of 40% and PEEP of 5. The chest x-ray from today shows cardiomegaly, ET tube is in a good location, the patient has a triple-lumen cath in the right IJ. There is also evidence of bilateral pleural effusion which is essentially unchanged compared to yesterday and the findings of essentially stable for now. The blood gas shows a pH of 7.48 with a pCO2 of 39 and pO2 of 79. The patient is quite segments on mechanical ventilator. Hemodynamically, the patient is on KVO IV fluids. He did have significant fluid resuscitation. And IV fluids were cut down yesterday. He remains on pressors and norepinephrine is running at the rate of 0.03 mcg/kg/m. As such, his blood pressure has stabilized and he was also taken off the vasopressin. Cardiac rhythm is still sinus. Urine output is adequate for now. The patient was also started on TPN for nutritional support. On today's evaluation, the surgical wound is draining purulent foul-smelling material. The colostomy is viable and there is stool output in the colostomy bag. In terms of cultures, the wound needs to be cultured. The blood culture is negative. The abdominal wound cultures collected intraoperatively are still pending for now. The patient remains on IV Zosyn for now. Blood work shows a dull retrosternal 9 with a hemoglobin of 7.5 and a platelet count of 204. The sodium is at 135, potassium is to be replaced at 2.9 and the patient has a BUN of 22 with a creatinine of 1.36 and his acute kidney injury is also improving. Blood sugars at 202. Patient is on Levemir insulin 25 units twice a day and is also on sliding scale insulin coverage. Blood sugars under adequate control for now. Reevaluated today on 04/21/2022, patient is now postoperative day #4. Patient is status post surgery for an anastomotic leak, colectomy and diverticular colostomy. Remains in the ICU intubated and mechanically ventilated. He is on assist control rate of 20 tidal volume 450 FiO2 40% and PEEP of 5 ABG showed a pO2 of 97 pCO2 of 40 pH of 7.51 as no changes were made in the vent settings. Patient is still requiring norepinephrine at 0.02 mcg/kg/m propofol at 45 mcg/kg/m is also on TPN at 59 mL/h. Patient has good urine output, his ostomy seems to be functional. Chest x-ray continues to show small bilateral pleural effusions, endotracheal tube and catheters are in the proper position. WBC count is 12.2 hemoglobin is 7.7, basic metabolic profile is normal renal profile showed a BUN of 19 and creatinine of 1.34, steadily improving over the last 10 days. Patient is now sedated, and I plan to hold sedation on this patient today, address weaning parameters, and possibly give the patient weaning trial. Objective - Vital Signs Vital signs: Vital Signs Temp 100.1 F H 04/21/22 08:00 Pulse 112 H 04/21/22 11:30 Resp 29 H 04/21/22 11:00 BP 144/47 04/21/22 02:15 Pulse Ox 94 L 04/21/22 11:00 FiO2 40 04/21/22 11:22 Intake & Output 04/20/22 04/21/22 04/21/22 18:59 06:59 18:59 Intake Total 1334.684 596.785 885.345 Output Total 2404 2018 600 Balance -1070.316 -1421.215 285.345 Weight 102.9 kg 102.9 kg Intake: IV 996 192 320 0.9 220 120 90 Calcium Gluconate 1 gm In 354 Amino Acid 4.25%-D10w+ Lytes*E* 1,000 ml @ 59 mls/hr IV .BY D[facility] Rx#:[id number] DAPTOmycin 500 mg In 50 Sodium Chloride 0.9% 50 ml @ 100 mls/hr IVPB Q24H [facility] Rx#:[id number] Fluconazole in NaCl,Iso- 100 100 Osm 200 mg In Saline 1 100ml.bag @ 100 mls/hr IVPB DAILY [facility] Rx#: [id number] Piperacillin-Tazobactam 3 200 100 .375 gm In Sodium Chloride 0.9% 100 ml @ 25 mls/hr IVPB Q8H [facility] Rx#: [id number] Pressure Bags 72 72 30 Intake, IV Titration 338.684 404.785 505.345 Amount Magnesium Sulfate-D5w Pmx 100 1 gm In Dextrose/Water 1 100ml.bag @ 100 mls/hr IVPB ONCE ONE Rx#: [id number] Mvi, Adult No.4 with Vit 236 K 10 ml Trace (Conc-1Ml/ Dose) 1 ml Calcium Gluconate 1 gm Potassium Chloride 20 meq Magnesium Sulfate gm 1 gm In Amino Acid 4.25%-D10w+Lytes*E* 1,000 ml @ 65 mls/hr IV .BY DURATION [facility] Rx#: [id number] Norepinephrine 8 mg In 59.573 304.785 23.247 Sodium Chloride 0.9% 250 ml @ 0.03 MCG/KG/MIN 4. 766 mls/hr IV .Q24H [facility] Rx#:[id number] Vasopressin 20 unit In 45.824 Sodium Chloride 0.9% 50 ml @ 0.03 UNITS/MIN 4.59 mls/hr IV .Q11H7M [facility] Rx# :[id number] propofoL 1,000 mg In 233.287 100 146.098 Empty Bag 1 bag @ 15 MCG/ KG/MIN 7.389 mls/hr IV . [id number] [facility] Rx#:[id number] Other 60 Output: Urine 2205 2018 600 Stool 200 Other: Voiding Method Indwelling Catheter Indwelling Catheter Indwelling Catheter ABP, PAP, CO, CI - Last Documented Arterial Blood Pressure 136/51 - Exam Physical Exam: Revealed a 72-year-old white male in no distress sedated, intubated, mechanically ventilated Head: Atraumatic, normocephalic endotracheal tube and orogastric tube are intact. HEENT:[Neck is supple.] [No neck masses.] [No thyromegaly.] [No JVD.]nonicteric, no neck masses Chest: [Symmetrical chest expansion, diminished breath sounds at the bases with minimal crackles. Cardiac Exam: [Normal S1 and S2, no S3 gallop, no murmur.] Abdomen:colostomy in the left upper quadrant. The colon tissue is pink and viable. His stool output in the colostomy bag. The patient has a open midabdominal incision with serosanguineous/bloody fluid seeping from the wound surface. The base of the wound is showing purulent material especially at the e dges and it's covered with some purulent drainage is also foul-smelling. No direct tenderness. No rebound tenderness. Absent bowel sounds. Patient has scrotal edema. Extremities: [No clubbing, 1+ bipedal edema, no cyanosis.]: Good pulses bilaterally. Neurological Exam: Could not assess, patient is sedated on propofol. Psychiatric: Could not assess. - Labs CBC & Chem 7: 04/21/22 05:50 04/21/22 05:50 Labs: Abnormal Lab Results - Last 24 Hours (Table) 04/20/22 04/20/22 04/20/22 Range/Units 12:17 15:15 17:52 WBC (3.8-10.6) k/uL RBC (4.30-5.90) m/uL Hgb (13.0-17.5) gm/dL Hct (39.0-53.0) % MCHC (31.0-37.0) g/dL RDW (11.5-15.5) % Neutrophils # (1.3-7.7) k/uL Lymphocytes # (1.0-4.8) k/uL ABG pH (7.35-7.45) ABG HCO3 (21-25) mmol/L ABG Total CO2 (19-24) mmol/L ABG O2 Saturation (94-97) % Carbon Dioxide (22-30) mmol/L Creatinine (0.66-1.25) mg/dL Glucose (74-99) mg/dL POC Glucose (mg/dL) 230 H 207 H (70-110) mg/dL Calcium (8.4-10.2) mg/dL AST (17-59) U/L C-Reactive Protein 31.7 H (<1.0) mg/dL Total Protein (6.3-8.2) g/dL Albumin (3.5-5.0) g/dL 04/20/22 04/21/22 04/21/22 Range/Units 19:59 00:22 05:35 WBC (3.8-10.6) k/uL RBC (4.30-5.90) m/uL Hgb (13.0-17.5) gm/dL Hct (39.0-53.0) % MCHC (31.0-37.0) g/dL RDW (11.5-15.5) % Neutrophils # (1.3-7.7) k/uL Lymphocytes # (1.0-4.8) k/uL ABG pH 7.51 H (7.35-7.45) ABG HCO3 32 H (21-25) mmol/L ABG Total CO2 33 H (19-24) mmol/L ABG O2 Saturation 98.3 H (94-97) % Carbon Dioxide (22-30) mmol/L Creatinine (0.66-1.25) mg/dL Glucose (74-99) mg/dL POC Glucose (mg/dL) 191 H 193 H (70-110) mg/dL Calcium (8.4-10.2) mg/dL AST (17-59) U/L C-Reactive Protein (<1.0) mg/dL Total Protein (6.3-8.2) g/dL Albumin (3.5-5.0) g/dL 04/21/22 04/21/22 04/21/22 Range/Units 05:50 05:50 05:54 WBC 12.2 H (3.8-10.6) k/uL RBC 3.07 L (4.30-5.90) m/uL Hgb 7.7 L (13.0-17.5) gm/dL Hct 25.2 L (39.0-53.0) % MCHC 30.5 L (31.0-37.0) g/dL RDW 18.9 H (11.5-15.5) % Neutrophils # 9.9 H (1.3-7.7) k/uL Lymphocytes # 0.7 L (1.0-4.8) k/uL ABG pH (7.35-7.45) ABG HCO3 (21-25) mmol/L ABG Total CO2 (19-24) mmol/L ABG O2 Saturation (94-97) % Carbon Dioxide 31 H (22-30) mmol/L Creatinine 1.34 H (0.66-1.25) mg/dL Glucose 117 H (74-99) mg/dL POC Glucose (mg/dL) 129 H (70-110) mg/dL Calcium 7.2 L (8.4-10.2) mg/dL AST 15 L (17-59) U/L C-Reactive Protein (<1.0) mg/dL Total Protein 4.3 L (6.3-8.2) g/dL Albumin 2.0 L (3.5-5.0) g/dL Microbiology - Last 24 Hours (Table) 04/20/22 10:05 Gram Stain - Final Abdomen Wound Culture - Final 04/17/22 09:10 Gram Stain - Final Abdomen Wound Culture - Final 04/17/22 19:00 Blood Culture - Preliminary Blood No Growth after 72 hours 04/20/22 10:05 Anaerobic Culture - Preliminary Abdomen 04/17/22 09:10 Anaerobic Culture - Final Abdomen Anaerobic Gm Negative Bacilli Anaerobic Gm Negative Bacilli#2 Assessment and Plan Assessment: Impression: Acute hypoxic respiratory failure secondary to abdominal sepsis and septic shock Acute surgical abdomen secondary to anastomotic leak following a sigmoid resection and low AP resection from initial surgery performed on 04/13/2022 patient is now postoperative day #4, status post left colectomy and diverting colostomy Septic shock secondary to above secondary to abdominal sepsis Surgical wound infection Sigmoid colon mass, post low AP resection performed on 04/13/2022 Underlying coronary artery disease and previous CABG Chronic kidney disease stage III 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 Valvular heart disease with moderate degree of mitral regurgitation and severe tricuspid regurgitation with pulmonary hypertension Underlying COPD Benign prostatic hypertrophy Recommendation: Continue ventilatory support however the patient will be given a sedation interruption and assessment of weaning parameters and decide whether the patient should have a weaning trial. Continue antibiotics Continue Diflucan Continue IV fluid at KVO Continue nutritional support/TPN Titrate norepinephrine accordingly and possibly discontinue Continue GI and DVT prophylaxis Continue insulin Continue to monitor daily labs and daily electrolytes as well as renal profile Continue bronchodilators for his underlying COPD We will continue to follow. Patient is critically ill, critical care time is over 30 minutes Time with Patient: Greater than 30
--- NOTE | 2022-04-21 11:48 | P.PN ---
Subjective Progress Note Date: 04/21/22 Principal diagnosis: Intra-abdominal infection Patient is a 72 year old male presented to the hospital with symptomatic anemia did have low anterior resection subsequently did have a anastomosis leak on 04/17/2022 with laparotomy and resection of ischemic portion abdominal culture were disregarded by micro-lab as possible contamination, subsequently did have a fever and more purulent drainage from abdominal incision that prompted with diarrhea infectious disease consultation On today's evaluation that is 04/21/2022, the patient did have low-grade fever 100.1 this morning, the patient is currently off the pressor support and is in the process of getting extubated, and no significant purulent secretion through the ET diarrhea or any other changes reported by the nursing staff Objective - Vital Signs Vital signs: Vital Signs Temp 100.1 F H 04/21/22 08:00 Pulse 92 04/21/22 10:00 Resp 27 H 04/21/22 10:00 BP 144/47 04/21/22 02:15 Pulse Ox 94 L 04/21/22 10:00 FiO2 40 04/21/22 08:00 Intake & Output 04/20/22 04/21/22 04/21/22 18:59 06:59 18:59 Intake Total 1334.684 596.785 700.345 Output Total 2405 2018 460 Balance -1070.316 -1421.215 240.345 Weight 102.9 kg Intake: IV 996 192 194 0.9 220 120 70 Calcium Gluconate 1 gm In 354 Amino Acid 4.25%-D10w+ Lytes*E* 1,000 ml @ 59 mls/hr IV .BY DURATION [facility] Rx#:[id number] DAPTOmycin 500 mg In 50 Sodium Chloride 0.9% 50 ml @ 100 mls/hr IVPB Q24H [facility] Rx#:[id number] Fluconazole in NaCl,Iso- 100 100 Osm 200 mg In Saline 1 100ml.bag @ 100 mls/hr IVPB DAILY [facility] Rx#: [id number] Piperacillin-Tazobactam 3 200 .375 gm In Sodium Chloride 0.9% 100 ml @ 25 mls/hr IVPB Q8H [facility] Rx#: [id number] Pressure Bags 72 72 24 Intake, IV Titration 338.684 404.785 446.345 Amount Magnesium Sulfate-D5w Pmx 100 1 gm In Dextrose/Water 1 100ml.bag @ 100 mls/hr IVPB ONCE ONE Rx#: [id number] Mvi, Adult No.4 with Vit 177 K 10 ml Trace (Conc-1Ml/ Dose) 1 ml Calcium Gluconate 1 gm Potassium Chloride 20 meq Magnesium Sulfate gm 1 gm In Amino Acid 4.25%-D10w+Lytes*E* 1,000 ml @ 59 mls/hr IV .BY DURATION REPLACED [facility] Rx#: [id number] Norepinephrine 8 mg In 59.573 304.785 23.247 Sodium Chloride 0.9% 250 ml @ 0.03 MCG/KG/MIN 4. 766 mls/hr IV .Q24H REPLACED BY [facility] Rx#:[id number] Vasopressin 20 unit In 45.824 Sodium Chloride 0.9% 50 ml @ 0.03 UNITS/MIN 4.59 mls/hr IV .Q11H7M REPLACED BY [facility] Rx# :[id number] propofoL 1,000 mg In 233.287 100 146.098 Empty Bag 1 bag @ 15 MCG/ KG/MIN 7.389 mls/hr IV . [id number] REPLACED BY [facility] Rx#:[id number] Other 60 Output: Urine 2205 2018 460 Stool 200 Other: Voiding Method Indwelling Catheter Indwelling Catheter Indwelling Catheter ABP, PAP, CO, CI - Last Documented Arterial Blood Pressure 123/48 - Exam GENERAL DESCRIPTION: An elderly male intubated on the vent RESPIRATORY SYSTEM: Unlabored breathing , decreased breath sounds at bases HEART: S1 S2 regular rate and rhythm , ABDOMEN: Soft , no tenderness EXTREMITIES: No edema feet - Labs CBC & Chem 7: 05/02/22 07:00 05/02/22 07:00 Labs: Abnormal Lab Results - Last 24 Hours (Table) 04/20/22 04/20/22 04/20/22 Range/Units 12:17 15:15 17:52 WBC (3.8-10.6) k/uL RBC (4.30-5.90) m/uL Hgb (13.0-17.5) gm/dL Hct (39.0-53.0) % MCHC (31.0-37.0) g/dL RDW (11.5-15.5) % Neutrophils # (1.3-7.7) k/uL Lymphocytes # (1.0-4.8) k/uL ABG pH (7.35-7.45) ABG HCO3 (21-25) mmol/L ABG Total CO2 (19-24) mmol/L ABG O2 Saturation (94-97) % Carbon Dioxide (22-30) mmol/L Creatinine (0.66-1.25) mg/dL Glucose (74-99) mg/dL POC Glucose (mg/dL) 230 H 207 H (70-110) mg/dL Calcium (8.4-10.2) mg/dL AST (17-59) U/L C-Reactive Protein 31.7 H (<1.0) mg/dL Total Protein (6.3-8.2) g/dL Albumin (3.5-5.0) g/dL 04/20/22 04/21/22 04/21/22 Range/Units 19:59 00:22 05:35 WBC (3.8-10.6) k/uL RBC (4.30-5.90) m/uL Hgb (13.0-17.5) gm/dL Hct (39.0-53.0) % MCHC (31.0-37.0) g/dL RDW (11.5-15.5) % Neutrophils # (1.3-7.7) k/uL Lymphocytes # (1.0-4.8) k/uL ABG pH 7.51 H (7.35-7.45) ABG HCO3 32 H (21-25) mmol/L ABG Total CO2 33 H (19-24) mmol/L ABG O2 Saturation 98.3 H (94-97) % Carbon Dioxide (22-30) mmol/L Creatinine (0.66-1.25) mg/dL Glucose (74-99) mg/dL POC Glucose (mg/dL) 191 H 193 H (70-110) mg/dL Calcium (8.4-10.2) mg/dL AST (17-59) U/L C-Reactive Protein (<1.0) mg/dL Total Protein (6.3-8.2) g/dL Albumin (3.5-5.0) g/dL 04/21/22 04/21/22 04/21/22 Range/Units 05:50 05:50 05:54 WBC 12.2 H (3.8-10.6) k/uL RBC 3.07 L (4.30-5.90) m/uL Hgb 7.7 L (13.0-17.5) gm/dL Hct 25.2 L (39.0-53.0) % MCHC 30.5 L (31.0-37.0) g/dL RDW 18.9 H (11.5-15.5) % Neutrophils # 9.9 H (1.3-7.7) k/uL Lymphocytes # 0.7 L (1.0-4.8) k/uL ABG pH (7.35-7.45) ABG HCO3 (21-25) mmol/L ABG Total CO2 (19-24) mmol/L ABG O2 Saturation (94-97) % Carbon Dioxide 31 H (22-30) mmol/L Creatinine 1.34 H (0.66-1.25) mg/dL Glucose 117 H (74-99) mg/dL POC Glucose (mg/dL) 129 H (70-110) mg/dL Calcium 7.2 L (8.4-10.2) mg/dL AST 15 L (17-59) U/L C-Reactive Protein (<1.0) mg/dL Total Protein 4.3 L (6.3-8.2) g/dL Albumin 2.0 L (3.5-5.0) g/dL Microbiology - Last 24 Hours (Table) 04/17/22 09:10 Gram Stain - Final Abdomen Wound Culture - Final 04/20/22 10:05 Gram Stain - Preliminary Abdomen Wound Culture - Preliminary 04/17/22 19:00 Blood Culture - Preliminary Blood No Growth after 72 hours 04/20/22 10:05 Anaerobic Culture - Preliminary Abdomen 04/17/22 09:10 Anaerobic Culture - Final Abdomen Anaerobic Gm Negative Bacilli Anaerobic Gm Negative Bacilli#2 Assessment and Plan (1) Intra-abdominal abscess Status: Acute Code(s): K65.1 - PERITONEAL ABSCESS SNOMED Code(s): 77652424 Plan: 1patient with admission to the hospital with symptomatic anemia 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 2blood culture has been obtained and Currently pending 3patient to continue with daptomycin today and Zosyn while waiting for repeat cultures to be finalized. Time with Patient: Less than 30
[2022-04-21 12:29] LABS: Glucose,Whole Blood 143 mg/dL (70-110)
[2022-04-21] MEDS: DAPTOmycin 500 MG in SODIUM CHLORIDE 0.9% 50 ML IVPB SCH (12:31)
[2022-04-21 12:56] LABS: ABG Base Excess 9.6 mmol/L; ABG HCO3 32 mmol/L (21-25); ABG Oxygen Saturation 96.2 % (94-97); ABG PCO2 38 mmHg (35-45); ABG PH 7.54 (7.35-7.45); ABG PO2 71 mmHg (83-108); ABG TCO2 33 mmol/L (19-24); Allen Test Performed? Yes
--- NOTE | 2022-04-21 14:52 | P.PN ---
Subjective Progress Note Date: 04/21/22 Patient is a 72-year-old male with a known history of coronary artery disease status post CABG and recent stent placement in February 2022 initially presented to ER with complaints of shortness of breath and exertional dyspnea. Patient initially thought it was due to his heart condition and went to ER. Patient was found to have a hemoglobin of 6.9 and received 1 unit of PRBC. Patient was tested positive for FOBT. Patient is also taking aspirin and Plavix from recent stent placement. Patient also states that he has been taking Motrin for the last couple of weeks for his neuropathy pain in his feet. Denies any complaints of hematemesis dark-colored stools. Patient was transferred to [facility] for GI evaluation. On admission WBC 4.4 hemoglobin 7.5 MCV 79.7 and platelets 243 Sodium 143 potassium 4.2 chloride 101 bicarb is 19 BUN 25 and creatinine 1.72 Calcium 7.4 04/11/2022 Patient is currently resting in bed. Awake alert and oriented x3. No complaints of chest pain or shortness of breath. Otherwise underwent EGD and colonoscopy today. EGD showed moderate size hiatal hernia but no evidence of esophagitis or peptic ulcer disease. No evidence of GI bleed. Colonoscopy showed a) Near circumferential sigmoid colon mass at 28 cm from the anal verge status post multiple biopsies followed by tattooing with Aiyana ink b) 5 mm rectal polyp status post polypectomy General surgery was consulted and follow-up biopsy report.. Hemoglobin is stable at 8.6 otherwise. Denies any complaints of nausea or vomiting. Patient was started on clear liquid diet and follow H&H. 04/12/2022 Patient is currently resting in the bed. Awake alert and oriented x3. No complaints of chest pain or shortness of breath. No nausea vomiting abdominal pain or diarrhea. No cough or sputum production. Patient was seen by general surgery and is planning for or tomorrow. Antiplatelets on hold. Laboratory data reviewed. Patient is being current on iron supplementation Protonix IV push daily. 04/13/2022 Patient is currently lying in bed. Awake alert and oriented. Pain is fairly controlled. Status post low anterior resection of the sigmoid colon. Postoperative day 0 No fever no chills. Currently on room air. No nausea vomiting or diarrhea. Laboratory data showed WBC 5.3 hemoglobin 7.7 platelets 216 sodium 140 potassium 3.8 chloride 106 bicarb is 22 BUN 16 and creatinine 1.69. Calcium 7.5. General surgery and cardiology is on board. 04/14/2022 Patient is evaluated today sitting up in chair currently postoperative day #1 low anterior resection for sigmoid colon mass with pathology currently pending at this time. Patient is currently on clear liquid diet. Not passing gas yet and no BM. Reports controlled incisional abdominal pain. Wound vac is in place and intact. Patient is currently on D5 0.45 normal saline with potassium. Creatinine is up to 2.0 today. 04/15/2022 Patient is evaluated today on stepdown unit currently postoperative day #2 sigmoid colon resection. Aspirin and plavix remain on hold. Cardiology following closely. Blood pressure has improved to 139/71 today. Indwelling catheter removed yesterday afternoon, patient has issues with urinary retention overnight and for this reason normal saline was placed on hold. Patient has been unable to void and urinary strait cath was unable to produce urine. Bladder scan today showing 70 mls in urinary bladder. Creatinine is up to 2.86 today. Urology has been consulted for placement of urinary catheter and IV fluids have been resumed at an increased rate. Continues on clear liquid diet. Reports abdominal pain is controlled today. Blood glucose has been increased and insulin has been added. Remains afebrile, heart rate 72, blood pressure 120/68, 92% room air. 04/16/2022 Patient is evaluated on medical floor. he is postoperative day #3 sigmoid colon resection. Patient had urinary catheter placed by urology for urinary retention. Overnight has had 225 mLs of urine output, he is continued on normal saline at 125 mls/hr. Creatinine today has improved 2.29. Sodium up to 134. Renal ultrasound has been ordered and will repeat labs in AM. Patient had a bowel movement today he reports. He has some abdominal distention, states he is not passing much gas and feels bloated. Hemodynamically stable. 04/17/2022 Patient is evaluated on medical floor. Patients abdomen appears more distended with increased shortness of breath. He is postoperative day #4 low anterior resection of sigmoid colon secondary to mass. 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 He had chest xray completed with report called by radiology with large amount of free intraperitoneal air and bilateral infiltrate and small effusion. Correlate for mild venous congestion. Abdominal pelvis CT was ordered and results showing moderate to large amount of free intraperitoneal air may be related to patients interval surgery and colonic resection. Moderate bilateral pleural effusions, small amount of ascites around the liver, body wall edema, large hiatal hernia. Patient will undergo exploratory laporatomy today. Patient was noted to have purulent drainage from wound vac and also from midline incision which was cultured and patient was started on antibiotics. Blood cultures will be taken as well. Patient has been hydrated overnight with normal saline and creatinine has improved to 2.0, however his urine output remains marginal with 600 mls in the last 24 hours from indwelling urinary catheter. Renal ultrasound showing possible mild thinning of left renal cortex correlate for chronic medical renal disease with no hydronephrosis or nephrolisthiasis. Labs today showing white count 7.98, hgb 7.1, platelets 97, sodium 138, potassium 4.7, BUN 36.3, creatinine 2.0. Urinalysis negative. Patient is afebrile, heart rate 78, blood pressure 142/63, 100% on 3L nasal cannula. 04/18/2022 Patient is evaluated in the intensive care unit currently intubated on mechanical ventilator and sedated. Patient was found to have free air in the abdomen and was taken for exploratory laporatomy yesterday and was found to have ischemic bowel. Patient had take down of the anastamosis and colectomy, washout of abdomen and colostomy left upper quadrant. Patient was taken from the OR and admitted to the intensive care unit. Patient is evaluated today postoperative day #1, and also postoperative day #5 low anterior resection. Patient has OG tube in place with 200 mls of gastric output total which brown in color with black noted in the collection cannister. He did receive 2 units of PRBCs and hemoglobin is stable today at 8.4. He received 1 unit of PRBC on admission as well. He continues on aspirin 81 mg daily and plavix remains on hold. Cardiology following. Patient had ABGs done today showing pH of 7.38, pCO2 of 34, pO2 of 120 HCO3 of 20. He will continue to remain on mechanical ventilator overnight. Blood pressure remains on the lower side and patient is currently on lovephed running at 0.28 mcg/kg/min. Nephrology is following and patient continues on bicarbonate gtt running at 75 mls/hr. Chest xray today reports persistent areas of consolidation pleural effusion correlate for CHF, superimposed pneumonia not excluded. Blood culture and wound cultures are pending and patient has been started on IV zosyn. Patient will be started on TPN today. He is sedated with propofol. Surgical site is examined with retention sutures in place covered with ABD dressing. Additionally patient has LUQ colostomy in place with stoma showing no signs of necrosis and there is small amt of brown liquid stool in ostomy. Labs today showing white count of 7.5, hgb 8.4, sodium 134, potassium 3.7, BUN 32, creatinine 1.66, blood glucose 242, calcium 6.4, phosphorous 3.3, magnesium 1.8, albumin 2.2. Patient has temp of 100.7 today, heart rate 82, blood pressure 99/43, and oxygen saturation of 98% on mechanical ventilator with 40% FiO2. 04/19/2022 Patient is evaluated in the intensive care unit. He is currently intubated on mechanical ventilator with FiO2 of 40% He is receiving TPN. He is sedated with propofol. He is requiring levophed and vasopressin has been added. Blood pressures are improved into the 120s systolic. Creatinine has also improved to 1.56. Blood culture and wound culture are pending and IV zosyn is continued. Chest xray today showing cardiomegaly with pulmonary vascular congestion and bilateral pleural effusions. IV bicarb has been discontinued. Scrotal edema is increased and patient has generalized peripheral edema as well. There is NG tube in place with minimal output and continues to be black/dark brown in color. Patient has watery output from ostomy. Retention sutures are removed and abdomen is open and has some sanguineous drainage. He appears comfortable. Urine output has increased. IV tylenol in place for fever. 04/20/2022 Patient continues to be monitored closely in intensive care unit. He is currently intubated and sedated on the mechanical ventilator with FiO2 of 40%. Blood gases are done today with pH of 7.48, pO2 79. Patient is currently running temp intermittently. He continues on levophed and vasopressin is on hold. Patient is currently sedated with propofol. Abdomen culture from 04/17 showing multiple gram negative bacilli colonies and also group D enterococcus. Patient remains on IV zosyn and has also been started on IV diflucan and also IV vancomycin. Chest xray today showing stable support tubes, similiar cardiomegaly, suspected similar pleural effusions. Labs today showing white count of 9.0, hgb of 7.5. Creatinine continues to improve currently 1.36, potassium 2.9. Blood glucose up in the 200s and insulin continues to be increased. Patient continues on TPN. Abdominal wound is open and packed with gauze with foul odor noted. Bowel sounds are increased and patient is making stool from ostomy today light brown and has some formed stool. 04/21/2022 Patient is evaluated in intensive care unit during sedation holiday. He has spontaneous eye opening and is following commands. Remains lethargic. He has OG tube in place. He continues on mechanical ventilator with FiO2 of 40%. ABGs are done patient will be extubated today. He has stool from ostomy with increased bowel sounds. Repeat abdominal culture is pending. Anaerobic culture is showing 2 gram negative bacilli species. Patient continues on IV daptomycin, IV fluc onazole, and IV zosyn. Infectious disease on and following abdominal cultures. Patient is off pressor support at this time and blood pressures are in the 140s systolic. He has heart rate of 110 and atenolol can be resumed. Patient has T- Max of 100.4 today. Chest xray showing persistent bilateral pleural effusions. Unable to complete review of systems patient is intubated and sedated. PHYSICAL EXAMINATION: Patient is evaluated in ICU intubated and sedated. HEENT: Normocephalic. Neck is supple. Pupils reactive. Nostrils clear. Oral cavity is moist. Neck reveals no JVD, carotid bruits, or thyromegaly. CHEST EXAMINATION: Trachea is central. Symmetrical expansion. Lung escalante clear to auscultation and percussion. CARDIAC: Normal S1, S2 with no gallops. No murmurs ABDOMEN: Bowel sounds are increased today, LUQ ostomy in place with stool output. Gauze packing to open abdominal wound. Extremities: reveal no edema. No clubbing or cyanosis Neurologically Intubated and sedated Skin: No rash or skin lesions. Lower extremity edema and significant scrotal edema. Peripheral edema. Psychiatric: unable to assess at this time Musculoskeletal: No joint swelling or deformity. Assessment and Plan Assessment Sigmoid colon mass status post low anterior resection postoperative day #8 with 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 Anastomotic leak and ischemic bowel following low anterior resection patient is currently postoperative day #4 abdominal washout, takedown of anastamosis with left colectomy and colostomy formation LUQ. Shock likely septic shock secondary to above and patient is currently of vasopressor support and blood pressure is stable Acute hypoxic respiratory failure currently intubated on mechanical ventilator Acute blood loss anemia from GI bleed secondary to sigmoid colon mass. Patient has received 3 units of blood this admission. Acute kidney injury prerenal with acute tubular necrosis, improving Postoperative urinary retention with indwelling catheter placed Microcytic anemia with iron deficiency. Hyperglycemia Coronary artery disease with history of stent placement in February 2022 Coronary artery disease history of CABG GI and DVT prophylaxis with SCDs Full Code Plan: Continue mechanical ventilator per forensic nurse Vasopressors are on hold and plan to extubate patient today. Final culture from 04/17 showing multiple colonies and IV daptomycin has been started Abdominal wound will be recultured and infectious disease has been consulted IV bicarbonate has been discontinued. Monitor H&H closely. Transfusion of hemoglobin less than 7. Plavix remains on hold Continue on TPN currently running at 30ml/hr and insulin dosing has been increased and continue to monitor blood glucose Q6h. Multiple consultations following including nephrology, urology, cardiology, general surgery, pulmonary forensic nurse Repeat labs in AM Condition remains guarded. The impression and plan of care has been dictated by Carmita Johnson, Nurse Practitioner as directed. Dr. Akbar MD I have performed a history and physical examination and medical decision making of this patient, discussed the same with the dictator, and agree with the dictators assessment and plan as written, documented as a scribe. Based on total visit time, I have performed more than 50% of this visit. Objective - Vital Signs Vital signs: Vital Signs Temp 100.4 F H 04/21/22 11:15 Pulse 110 H 04/21/22 14:00 Resp 21 04/21/22 14:00 BP 144/47 04/21/22 12:15 Pulse Ox 94 L 04/21/22 14:00 FiO2 40 04/21/22 12:00 Intake & Output 04/20/22 04/21/22 04/21/22 18:59 06:59 18:59 Intake Total 1334.684 044.183 0687.345 Output Total 2405 2018 2200 Balance -1070.316 -1421.215 -909.655 Weight 102.9 kg 102.9 kg Intake: IV 996 192 548 0.9 220 120 150 Calcium Gluconate 1 gm In 354 Amino Acid 4.25%-D10w+ Lytes*E* 1,000 ml @ 59 mls/hr IV .BY DURATION [facility] Rx#:[id number] DAPTOmycin 500 mg In 50 50 Sodium Chloride 0.9% 50 ml @ 100 mls/hr IVPB Q24H [facility] Rx#:[id number] Fluconazole in NaCl,Iso- 100 200 Osm 200 mg In Saline 1 100ml.bag @ 100 mls/hr IVPB DAILY [facility] Rx#: [id number] Piperacillin-Tazobactam 3 200 100 .375 gm In Sodium Chloride 0.9% 100 ml @ 25 mls/hr IVPB Q8H [facility] Rx#: [id number] Pressure Bags 72 72 48 Intake, IV Titration 338.684 404.785 682.345 Amount Magnesium Sulfate-D5w Pmx 100 1 gm In Dextrose/Water 1 100ml.bag @ 100 mls/hr IVPB ONCE ONE Rx#: [id number] Mvi, Adult No.4 with Vit 413 K 10 ml Trace (Conc-1Ml/ Dose) 1 ml Calcium Gluconate 1 gm Potassium Chloride 20 meq Magnesium Sulfate gm 1 gm In Amino Acid 4.25%-D10w+Lytes*E* 1,000 ml @ 65 mls/hr IV .BY DURATION [facility] Rx#: [id number] Norepinephrine 8 mg In 59.573 304.785 23.247 Sodium Chloride 0.9% 250 ml @ 0.03 MCG/KG/MIN 4. 766 mls/hr IV .Q24H [facility] Rx#:[id number] Vasopressin 20 unit In 45.824 Sodium Chloride 0.9% 50 ml @ 0.03 UNITS/MIN 4.59 mls/hr IV .[id number] [facility] Rx# :[id number] propofoL 1,000 mg In 233.287 100 146.098 Empty Bag 1 bag @ 15 MCG/ KG/MIN 7.389 mls/hr IV . [id number] [facility] Rx#:[id number] Other 60 Output: Urine 2205 2018 2200 Stool 200 Other: Voiding Method Indwelling Catheter Indwelling Catheter Indwelling Catheter ABP, PAP, CO, CI - Last Documented Arterial Blood Pressure 142/55 - Labs CBC & Chem 7: 03/13/23 05:50 04/21/22 05:50 Labs: Abnormal Lab Results - Last 24 Hours (Table) 04/20/22 04/20/22 04/20/22 Range/Units 15:15 17:52 19:59 WBC (3.8-10.6) k/uL RBC (4.30-5.90) m/uL Hgb (13.0-17.5) gm/dL Hct (39.0-53.0) % MCHC (31.0-37.0) g/dL RDW (11.5-15.5) % Neutrophils # (1.3-7.7) k/uL Lymphocytes # (1.0-4.8) k/uL ABG pH (7.35-7.45) ABG pO2 (83-108) mmHg ABG HCO3 (21-25) mmol/L ABG Total CO2 (19-24) mmol/L ABG O2 Saturation (94-97) % Carbon Dioxide (22-30) mmol/L Creatinine (0.66-1.25) mg/dL Glucose (74-99) mg/dL POC Glucose (mg/dL) 207 H 191 H (70-110) mg/dL Calcium (8.4-10.2) mg/dL AST (17-59) U/L C-Reactive Protein 31.7 H (<1.0) mg/dL Total Protein (6.3-8.2) g/dL Albumin (3.5-5.0) g/dL 04/21/22 04/21/22 04/21/22 Range/Units 00:22 05:35 05:50 WBC (3.8-10.6) k/uL RBC (4.30-5.90) m/uL Hgb (13.0-17.5) gm/dL Hct (39.0-53.0) % MCHC (31.0-37.0) g/dL RDW (11.5-15.5) % Neutrophils # (1.3-7.7) k/uL Lymphocytes # (1.0-4.8) k/uL ABG pH 7.51 H (7.35-7.45) ABG pO2 (83-108) mmHg ABG HCO3 32 H (21-25) mmol/L ABG Total CO2 33 H (19-24) mmol/L ABG O2 Saturation 98.3 H (94-97) % Carbon Dioxide 31 H (22-30) mmol/L Creatinine 1.34 H (0.66-1.25) mg/dL Glucose 117 H (74-99) mg/dL POC Glucose (mg/dL) 193 H (70-110) mg/dL Calcium 7.2 L (8.4-10.2) mg/dL AST 15 L (17-59) U/L C-Reactive Protein (<1.0) mg/dL Total Protein 4.3 L (6.3-8.2) g/dL Albumin 2.0 L (3.5-5.0) g/dL 04/21/22 04/21/22 04/21/22 Range/Units 05:50 05:54 12:28 WBC 12.2 H (3.8-10.6) k/uL RBC 3.07 L (4.30-5.90) m/uL Hgb 7.7 L (13.0-17.5) gm/dL Hct 25.2 L (39.0-53.0) % MCHC 30.5 L (31.0-37.0) g/dL RDW 18.9 H (11.5-15.5) % Neutrophils # 9.9 H (1.3-7.7) k/uL Lymphocytes # 0.7 L (1.0-4.8) k/uL ABG pH (7.35-7.45) ABG pO2 (83-108) mmHg ABG HCO3 (21-25) mmol/L ABG Total CO2 (19-24) mmol/L ABG O2 Saturation (94-97) % Carbon Dioxide (22-30) mmol/L Creatinine (0.66-1.25) mg/dL Glucose (74-99) mg/dL POC Glucose (mg/dL) 129 H 143 H (70-110) mg/dL Calcium (8.4-10.2) mg/dL AST (17-59) U/L C-Reactive Protein (<1.0) mg/dL Total Protein (6.3-8.2) g/dL Albumin (3.5-5.0) g/dL 04/21/22 Range/Units 12:51 WBC (3.8-10.6) k/uL RBC (4.30-5.90) m/uL Hgb (13.0-17.5) gm/dL Hct (39.0-53.0) % MCHC (31.0-37.0) g/dL RDW (11.5-15.5) % Neutrophils # (1.3-7.7) k/uL Lymphocytes # (1.0-4.8) k/uL ABG pH 7.54 H (7.35-7.45) ABG pO2 71 L (83-108) mmHg ABG HCO3 32 H (21-25) mmol/L ABG Total CO2 33 H (19-24) mmol/L ABG O2 Saturation (94-97) % Carbon Dioxide (22-30) mmol/L Creatinine (0.66-1.25) mg/dL Glucose (74-99) mg/dL POC Glucose (mg/dL) (70-110) mg/dL Calcium (8.4-10.2) mg/dL AST (17-59) U/L C-Reactive Protein (<1.0) mg/dL Total Protein (6.3-8.2) g/dL Albumin (3.5-5.0) g/dL Microbiology - Last 24 Hours (Table) 04/20/22 10:05 Gram Stain - Final Abdomen Wound Culture - Final 04/17/22 09:10 Gram Stain - Final Abdomen Wound Culture - Final 04/17/22 19:00 Blood Culture - Preliminary Blood No Growth after 72 hours 04/20/22 10:05 Anaerobic Culture - Preliminary Abdomen 04/17/22 09:10 Anaerobic Culture - Final Abdomen Anaerobic Gm Negative Bacilli Anaerobic Gm Negative Bacilli#2 Assessment and Plan Time with Patient: Less than 30
[2022-04-21] MEDS: ACETAMINOPHEN TAB 500 MG TAB PO PRN (16:54)
[2022-04-21 18:00] LABS: Glucose,Whole Blood 153 mg/dL (70-110)
[2022-04-22 00:44] LABS: Glucose,Whole Blood 162 mg/dL (70-110)
[2022-04-22] MEDS: HEPARIN SODIUM,PORCINE/PF 5,000 UNIT/0.5 ML SYRINGE SQ SCH ×3 (00:45→16:46)
[2022-04-22] MEDS: INSULIN ASPART (NovoLOG) 100 UNIT/ML VIAL SQ SCH ×4 (00:45→18:24)
[2022-04-22] MEDS: ALBUTEROL NEBULIZED 2.5 MG/3 ML INHALATION SCH ×5 (03:07→21:04)
[2022-04-22] MEDS: IPRATROPIUM 0.5 MG/2.5 ML NEBU INHALATION SCH ×5 (03:07→21:05)
[2022-04-22] MEDS: PIPERACILLIN-TAZOBACTAM 3.375 GM in SODIUM CHLORIDE 0.9% 100 ML IVPB SCH ×3 (03:20→18:20)
[2022-04-22] MEDS: HYDROmorphone 1 MG/ML 1 ML SYRINGE IVP PRN ×4 (03:27→21:14)
[2022-04-22 05:39] LABS: Anisocytosis Slight; Basophils % (A) 0 %; Eosinophils # (A) 0.2 k/uL (0-0.7); Eosinophils % (A) 1 %; HCT 26.1 % (39.0-53.0); HGB 7.8 gm/dL (13.0-17.5); Hypochromasia Marked; Lymphocytes # (A) 0.7 k/uL (1.0-4.8); Lymphocytes % (A) 5 %; MCH 24.6 pg (25.0-35.0); MCHC 29.8 g/dL (31.0-37.0); MCV 82.5 fL (80.0-100.0); Mean Platelet Volume 8.4; Microcytosis Slight; Monocytes # (A) 0.6 k/uL (0-1.0); Monocytes % (A) 5 %; Neutrophils # (A) 10.7 k/uL (1.3-7.7); Neutrophils % (A) 86 %; Platelet Count 310 k/uL (150-450); Poikilocytosis Slight; RBC 3.17 m/uL (4.30-5.90); WBC 12.4 k/uL (3.8-10.6)
[2022-04-22 05:47] LABS: Albumin 2.2 g/dL (3.5-5.0); Calcium 7.4 mg/dL (8.4-10.2); Magnesium 1.7 mg/dL (1.6-2.3); Phosphorus 3.6 mg/dL (2.5-4.5); Potassium 4.1 mmol/L (3.5-5.1); Total Bilirubin 0.6 mg/dL (0.2-1.3); Total Protein 4.7 g/dL (6.3-8.2)
[2022-04-22 05:57] LABS: Glucose,Whole Blood 167 mg/dL (70-110)
[2022-04-22] MEDS ORDERED: MAGNESIUM SULFATE-D5W PMX 1 GM in DEXTROSE/WATER 1 100ML.BAG IVPB ONE (06:03)
--- NOTE | 2022-04-22 07:48 | XR ---
EXAMINATION TYPE: XR chest 1V portable DATE OF EXAM: 04/22/2022 6:11 AM COMPARISON: Chest radiographs from 04/21/2022 TECHNIQUE: XR chest 1V portable Portable AP radiograph of the chest. CLINICAL INDICATION:Male, 72 years old with history of Tube placement; FINDINGS: Lungs/Pleura: Blunting of both costophrenic angles. No focal consolidation or pneumothorax. Pulmonary vascularity: Mild pulmonary vascular congestion. Heart/mediastinum: Cardiomediastinal silhouette is enlarged and stable. Musculoskeletal: No acute osseous pathology. Midline sternotomy wires and surgical clips project over the mediastinum. Other findings: None Lines/Tubes: Interval removal of endotracheal and NG tubes. Left internal jugular central venous catheter with distal tip at the cavoatrial junction is redemonst rated. IMPRESSION: 1. Stable left internal jugular central venous catheter with interval removal of endotracheal and NG tubes. 2. Small bilateral pleural effusions redemonstrated with mild pulmonary vascular congestion and cardi omegaly.
[2022-04-22] MEDS: ATORVASTATIN 40 MG TAB PO SCH (08:43)
[2022-04-22] MEDS: FLUCONAZOLE IN NACL,ISO-OSM 200 MG in SALINE 1 100ML.BAG IVPB SCH (08:43)
[2022-04-22] MEDS: SIMETHICONE 40 MG/0.6 ML DROPS 2,000 MG/30 ML BOTTLE PO SCH ×4 (08:43→20:09)
[2022-04-22] MEDS: FAMOTIDINE 20 MG/2 ML VIAL IV SCH (08:43)
[2022-04-22] MEDS: TAMSULOSIN 0.4 MG CAP.ER.24H PO SCH (08:43)
[2022-04-22] MEDS: ASPIRIN 81 MG PO SCH (08:43)
[2022-04-22] MEDS: INSULIN DETEMIR (LEVEMIR) 100 UNIT/ML SYR SQ SCH ×2 (08:45→20:08)
[2022-04-22] MEDS: VASOPRESSIN 20 UNIT in SODIUM CHLORIDE 0.9% 50 ML IV SCH (09:03)
[2022-04-22] MEDS ORDERED: FUROSEMIDE 10 MG/ML 2 ML VIAL IV ONE (10:29)
--- NOTE | 2022-04-22 11:04 | P.PN ---
Subjective Patient is seen for follow-up for acute kidney injury, mostly ATN currently improving. Status post low anterior resection on 04/13/2022 for sigmoid mass and currently with a colostomy. Patient is extubated He is doing well Status post IV Lasix yesterday with good response. Blood pressure remains stable Serum creatinine staying at about 1.3 with grams per deciliter Objective - Vital Signs Vital signs: Vital Signs Temp 99.4 F 04/22/22 08:00 Pulse 111 H 04/22/22 10:00 Resp 18 04/22/22 10:00 BP 130/51 04/21/22 20:00 Pulse Ox 98 04/22/22 10:00 FiO2 40 04/22/22 08:02 Intake & Output 04/21/22 04/22/22 04/22/22 18:59 06:59 18:59 Intake Total 1717.069 935 518 Output Total 2875 1925 415 Balance -1157.931 -990 103 Weight 102.9 kg 98.2 kg Intake: IV 678 286 204 0.9 250 220 80 DAPTOmycin 500 mg In 50 Sodium Chloride 0.9% 50 ml @ 100 mls/hr IVPB Q24H [facility] Rx#:[id number] Fluconazole in NaCl,Iso- 200 100 Osm 200 mg In Saline 1 100ml.bag @ 100 mls/hr IVPB DAILY [facility] Rx#: [id number] Piperacillin-Tazobactam 3 100 .375 gm In Sodium Chloride 0.9% 100 ml @ 25 mls/hr IVPB Q8H [facility] Rx#: [id number] Pressure Bags 78 66 24 Intake, IV Titration 979.069 649 254 Amount Calcium Gluconate 1 gm 195 Potassium Chloride 20 meq Magnesium Sulfate gm 1 gm In Amino Acid 4.25%- D10w+Lytes*E* 1,000 ml @ 65 mls/hr IV .BY DURATION [facility] Rx#:[id number] Magnesium Sulfate-D5w Pmx 100 1 gm In Dextrose/Water 1 100ml.bag @ 100 mls/hr IVPB ONCE ONE Rx#: [id number] [facility], Adult No.4 with Vit 708 649 59 K 10 ml Trace (Conc-1Ml/ Dose) 1 ml Calcium Gluconate 1 gm Potassium Chloride 20 meq Magnesium Sulfate gm 1 gm In Amino Acid 4.25%-D10w+Lytes*E* 1,000 ml @ 65 mls/hr IV .BY DURATION [facility] Rx#: [id number] Norepinephrine 8 mg In 23.247 Sodium Chloride 0.9% 250 ml @ 0.03 MCG/KG/MIN 4. 766 mls/hr IV .Q24H [facility] Rx#:[id number] propofoL 1,000 mg In 147.822 Empty Bag 1 bag @ 15 MCG/ KG/MIN 7.389 mls/hr IV . [id number] [facility] Rx#:[id number] Oral 60 Other 60 Output: Urine 2875 875 415 Stool 1050 Other: Voiding Method Indwelling Catheter Indwelling Catheter Indwelling Catheter ABP, PAP, CO, CI - Last Documented Arterial Blood Pressure 133/59 - Exam Patient is extubated. Awake and following commands, comfortable, no acute distress Examination of the heart S1 and S2 Examination the lungs bilateral breath sounds are heard Abdomen is soft Examination lower ex Mittie shows edema 2-3+ bilaterally with significant scrotal edema RECREATION SPECIALIST exam grossly intact - Labs CBC & Chem 7: 04/22/22 05:25 04/22/22 05:25 Labs: Abnormal Lab Results - Last 24 Hours (Table) 04/21/22 04/21/22 04/21/22 Range/Units 12:28 12:51 17:59 WBC (3.8-10.6) k/uL RBC (4.30-5.90) m/uL Hgb (13.0-17.5) gm/dL Hct (39.0-53.0) % MCH (25.0-35.0) pg MCHC (31.0-37.0) g/dL RDW (11.5-15.5) % Neutrophils # (1.3-7.7) k/uL Lymphocytes # (1.0-4.8) k/uL ABG pH 7.54 H (7.35-7.45) ABG pO2 71 L (83-108) mmHg ABG HCO3 32 H (21-25) mmol/L ABG Total CO2 33 H (19-24) mmol/L Sodium (137-145) mmol/L Carbon Dioxide (22-30) mmol/L Creatinine (0.66-1.25) mg/dL Glucose (74-99) mg/dL POC Glucose (mg/dL) 143 H 153 H (70-110) mg/dL Calcium (8.4-10.2) mg/dL Total Protein (6.3-8.2) g/dL Albumin (3.5-5.0) g/dL 04/22/22 04/22/22 04/22/22 Range/Units 00:42 05:25 05:25 WBC 12.4 H (3.8-10.6) k/uL RBC 3.17 L (4.30-5.90) m/uL Hgb 7.8 L (13.0-17.5) gm/dL Hct 26.1 L (39.0-53.0) % MCH 24.6 L (25.0-35.0) pg MCHC 29.8 L (31.0-37.0) g/dL RDW 19.0 H (11.5-15.5) % Neutrophils # 10.7 H (1.3-7.7) k/uL Lymphocytes # 0.7 L (1.0-4.8) k/uL ABG pH (7.35-7.45) ABG pO2 (83-108) mmHg ABG HCO3 (21-25) mmol/L ABG Total CO2 (19-24) mmol/L Sodium 136 L (137-145) mmol/L Carbon Dioxide 31 H (22-30) mmol/L Creatinine 1.33 H (0.66-1.25) mg/dL Glucose 151 H (74-99) mg/dL POC Glucose (mg/dL) 162 H (70-110) mg/dL Calcium 7.4 L (8.4-10.2) mg/dL Total Protein 4.7 L (6.3-8.2) g/dL Albumin 2.2 L (3.5-5.0) g/dL 04/22/22 Range/Units 05:55 WBC (3.8-10.6) k/uL RBC (4.30-5.90) m/uL Hgb (13.0-17.5) gm/dL Hct (39.0-53.0) % MCH (25.0-35.0) pg MCHC (31.0-37.0) g/dL RDW (11.5-15.5) % Neutrophils # (1.3-7.7) k/uL Lymphocytes # (1.0-4.8) k/uL ABG pH (7.35-7.45) ABG pO2 (83-108) mmHg ABG HCO3 (21-25) mmol/L ABG Total CO2 (19-24) mmol/L Sodium (137-145) mmol/L Carbon Dioxide (22-30) mmol/L Creatinine (0.66-1.25) mg/dL Glucose (74-99) mg/dL POC Glucose (mg/dL) 167 H (70-110) mg/dL Calcium (8.4-10.2) mg/dL Total Protein (6.3-8.2) g/dL Albumin (3.5-5.0) g/dL Microbiology - Last 24 Hours (Table) 04/20/22 10:05 Gram Stain - Final Abdomen Wound Culture - Final 04/17/22 19:00 Blood Culture - Preliminary Blood No Growth after 96 hours 04/20/22 15:40 Blood Culture - Preliminary Blood No Growth after 24 hours 04/17/22 09:10 Gram Stain - Final Abdomen Wound Culture - Final Assessment and Plan Assessment: 1. Acute kidney injury secondary to urinary retention and ATN. Creatinine peaked at 2.86 but improved to 1.3 this morning. Good urine output 2. Sigmoid mass and GI bleeding with severe anemia. Status post exploratory lap and colostomy 04/17/2022 3. Ventilator dependent respiratory failure on 40%, extubated 4. Volume overload with significant third spacing and scrotal edema 5. Status post coronary artery bypass graft remote 6. Mild hypokalemia secondary to diuresis 7. Metabolic acidosis resolved currently off bicarb drip. Plan: Repeat IV Lasix Repeat labs in a.m.
--- NOTE | 2022-04-22 11:56 | P.PN ---
Subjective Progress Note Date: 04/22/22 CHIEF COMPLAINT: Colon mass HISTORY OF PRESENT ILLNESS: Patient had lower anterior resection for sigmoid colon mass on 04/13/2022. He developed anastomotic leak and is now postop day #5 status post exploratory laparotomy, washout of abdomen takedown of anastomosis and colostomy in the left upper quadrant for anastomotic leak secondary to ischemic colon. Patient was extubated yesterday. He is off the Levophed. He continues to have fevers. T-max of 101.6. He had a temp of 100 this morning. Mildly tachycardic heart rate 107. White count elevated at 12.4. Remains on IV antibiotics and followed by infectious disease. Ostomy is functioning. He reports that his pain is controlled. Denies any nausea or vomiting. WBC 12.4 H she be 7.8 platelets 133 sodium 136 potassium 4.1 creatinine is 1.33. Nephrology has ordered IV Lasix for fluid overload. Patient seen and examined with Dr. Carrera PHYSICAL EXAM: VITAL SIGNS: Reviewed. GENERAL: Well-developed in no acute distress. HEENT: No sclera icterus. Extraocular movements grossly intact. Moist buccal mucosa. Head is atraumatic, normocephalic. ABDOMEN: Soft. Incisional dressing intact. Colostomy with stool NEUROLOGIC: Alert and oriented. Cranial nerves II through XII grossly intact. ASSESSMENT: 1. 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 Anastomotic leak secondary to ischemic colon status post exploratory laparotomy, abdominal washout and colostomy placement 3. Anemia due to GI bleed from the colon mass 4. History of coronary disease with stents placed in February 2022 with prior CABG 5. Intra-abdominal sepsis 6. Peritonitis PLAN: -Continue to monitor -Continue ICU management -Continue supportive care -Continue antibiotics -Continue TPN for nutrition support -Continue wet-to-dry dressing changes -GI prophylaxis Pepcid and DVT prophylaxis subcu heparin Physician Supervisor [employer] note has been reviewed by physician. Signing provider agrees with the documented findings, assessment, and plan of care. Objective - Vital Signs Vital signs: Vital Signs Temp 99.4 F 04/22/22 08:00 Pulse 111 H 04/22/22 10:00 Resp 18 04/22/22 10:00 BP 130/51 04/21/22 20:00 Pulse Ox 98 04/22/22 10:00 FiO2 40 04/22/22 08:02 Intake & Output 04/21/22 04/22/22 04/22/22 18:59 06:59 18:59 Intake Total 1717.069 935 518 Output Total 2875 1925 415 Balance -1157.931 -990 103 Weight 102.9 kg 98.2 kg Intake: IV 678 286 204 0.9 250 220 80 DAPTOmycin 500 mg In 50 Sodium Chloride 0.9% 50 ml @ 100 mls/hr IVPB Q24H [facility] Rx#:[id number] Fluconazole in NaCl,Iso- 200 100 Osm 200 mg In Saline 1 100ml.bag @ 100 mls/hr IVPB DAILY [facility] Rx#: [id number] Piperacillin-Tazobactam 3 100 .375 gm In Sodium Chloride 0.9% 100 ml @ 25 mls/hr IVPB Q8H [facility] Rx#: [id number] Pressure Bags 78 66 24 Intake, IV Titration 979.069 649 254 Amount Calcium Gluconate 1 gm 195 Potassium Chloride 20 meq Magnesium Sulfate gm 1 gm In Amino Acid 4.25%- D10w+Lytes*E* 1,000 ml @ 65 mls/hr IV .BY DURATION [facility] Rx#:[id number] Magnesium Sulfate-D5w Pmx 100 1 gm In Dextrose/Water 1 100ml.bag @ 100 mls/hr IVPB ONCE ONE Rx#: [id number] Mvi, Adult No.4 with Vit 708 649 59 K 10 ml Trace (Conc-1Ml/ Dose) 1 ml Calcium Gluconate 1 gm Potassium Chloride 20 meq Magnesium Sulfate gm 1 gm In Amino Acid 4.25%-D10w+Lytes*E* 1,000 ml @ 65 mls/hr IV .BY DURATION [facility] Rx#: [id number] Norepinephrine 8 mg In 23.247 Sodium Chloride 0.9% 250 ml @ 0.03 MCG/KG/MIN 4. 766 mls/hr IV .Q24H [facility] Rx#:[id number] propofoL 1,000 mg In 147.822 Empty Bag 1 bag @ 15 MCG/ KG/MIN 7.389 mls/hr IV . [id number] [facility] Rx#:[id number] Oral 60 Other 60 Output: Urine 2875 875 415 Stool 1050 Other: Voiding Method Indwelling Catheter Indwelling Catheter Indwelling Catheter ABP, PAP, CO, CI - Last Documented Arterial Blood Pressure 133/59 - Labs CBC & Chem 7: 04/22/22 05:25 04/22/22 05:25 Labs: Abnormal Lab Results - Last 24 Hours (Table) 04/21/22 04/21/22 04/21/22 Range/Units 12:28 12:51 17:59 WBC (3.8-10.6) k/uL RBC (4.30-5.90) m/uL Hgb (13.0-17.5) gm/dL Hct (39.0-53.0) % MCH (25.0-35.0) pg MCHC (31.0-37.0) g/dL RDW (11.5-15.5) % Neutrophils # (1.3-7.7) k/uL Lymphocytes # (1.0-4.8) k/uL ABG pH 7.54 H (7.35-7.45) ABG pO2 71 L (83-108) mmHg ABG HCO3 32 H (21-25) mmol/L ABG Total CO2 33 H (19-24) mmol/L Sodium (137-145) mmol/L Carbon Dioxide (22-30) mmol/L Creatinine (0.66-1.25) mg/dL Glucose (74-99) mg/dL POC Glucose (mg/dL) 143 H 153 H (70-110) mg/dL Calcium (8.4-10.2) mg/dL Total Protein (6.3-8.2) g/dL Albumin (3.5-5.0) g/dL 04/22/22 04/22/22 04/22/22 Range/Units 00:42 05:25 05:25 WBC 12.4 H (3.8-10.6) k/uL RBC 3.17 L (4.30-5.90) m/uL Hgb 7.8 L (13.0-17.5) gm/dL Hct 26.1 L (39.0-53.0) % MCH 24.6 L (25.0-35.0) pg MCHC 29.8 L (31.0-37.0) g/dL RDW 19.0 H (11.5-15.5) % Neutrophils # 10.7 H (1.3-7.7) k/uL Lymphocytes # 0.7 L (1.0-4.8) k/uL ABG pH (7.35-7.45) ABG pO2 (83-108) mmHg ABG HCO3 (21-25) mmol/L ABG Total CO2 (19-24) mmol/L Sodium 136 L (137-145) mmol/L Carbon Dioxide 31 H (22-30) mmol/L Creatinine 1.33 H (0.66-1.25) mg/dL Glucose 151 H (74-99) mg/dL POC Glucose (mg/dL) 162 H (70-110) mg/dL Calcium 7.4 L (8.4-10.2) mg/dL Total Protein 4.7 L (6.3-8.2) g/dL Albumin 2.2 L (3.5-5.0) g/dL 04/22/22 Range/Units 05:55 WBC (3.8-10.6) k/uL RBC (4.30-5.90) m/uL Hgb (13.0-17.5) gm/dL Hct (39.0-53.0) % MCH (25.0-35.0) pg MCHC (31.0-37.0) g/dL RDW (11.5-15.5) % Neutrophils # (1.3-7.7) k/uL Lymphocytes # (1.0-4.8) k/uL ABG pH (7.35-7.45) ABG pO2 (83-108) mmHg ABG HCO3 (21-25) mmol/L ABG Total CO2 (19-24) mmol/L Sodium (137-145) mmol/L Carbon Dioxide (22-30) mmol/L Creatinine (0.66-1.25) mg/dL Glucose (74-99) mg/dL POC Glucose (mg/dL) 167 H (70-110) mg/dL Calcium (8.4-10.2) mg/dL Total Protein (6.3-8.2) g/dL Albumin (3.5-5.0) g/dL Microbiology - Last 24 Hours (Table) 04/20/22 10:05 Gram Stain - Final Abdomen Wound Culture - Final 04/17/22 19:00 Blood Culture - Preliminary Blood No Growth after 96 hours 04/20/22 15:40 Blood Culture - Preliminary Blood No Growth after 24 hours 04/17/22 09:10 Gram Stain - Final Abdomen Wound Culture - Final
[2022-04-22] MEDS: DAPTOmycin 500 MG in SODIUM CHLORIDE 0.9% 50 ML IVPB SCH (12:14)
[2022-04-22 12:21] LABS: Glucose,Whole Blood 188 mg/dL (70-110)
--- NOTE | 2022-04-22 12:49 | P.PN ---
Subjective Progress Note Date: 04/22/22 Principal diagnosis: Intra-abdominal infection Patient is a 72 year old male presented to the hospital with symptomatic anemia did have low anterior resection subsequently did have a anastomosis leak on 04/17/2022 with laparotomy and resection of ischemic portion abdominal culture were disregarded by micro-lab as possible contamination, subsequently did have a fever and more purulent drainage from abdominal incision that prompted with diarrhea infectious disease consultation On today's evaluation that is 04/22/2022, the patient did have low-grade fever 100.degrees Fahrenheit this morning however the patient did have a fever of 101 for her last evening, the patient is currently off the pressor support and is breathing comfortably on 5 L nasal cannula did offer some simple question no vomiting reported or worsening drainage from his abdominal incision Objective - Vital Signs Vital signs: Vital Signs Temp 99.4 F 04/22/22 08:00 Pulse 111 H 04/22/22 10:00 Resp 18 04/22/22 10:00 BP 130/51 04/21/22 20:00 Pulse Ox 98 04/22/22 10:00 FiO2 40 04/22/22 08:02 Intake & Output 04/21/22 04/22/22 04/22/22 18:59 06:59 18:59 Intake Total 1717.069 935 518 Output Total 2875 1925 415 Balance -1157.931 -990 103 Weight 102.9 kg 98.2 kg Intake: IV 678 286 204 0.9 250 220 80 DAPTOmycin 500 mg In 50 Sodium Chloride 0.9% 50 ml @ 100 mls/hr IVPB Q24H [facility] Rx#:[id number] Fluconazole in NaCl,Iso- 200 100 Osm 200 mg In Saline 1 100ml.bag @ 100 mls/hr IVPB DAILY [facility] Rx#: [id number] Piperacillin-Tazobactam 3 100 .375 gm In Sodium Chloride 0.9% 100 ml @ 25 mls/hr IVPB Q8H [facility] Rx#: [id number] Pressure Bags 78 66 24 Intake, IV Titration 979.069 649 254 Amount Calcium Gluconate 1 gm 195 Potassium Chloride 20 meq Magnesium Sulfate gm 1 gm In Amino Acid 4.25%- D10w+Lytes*E* 1,000 ml @ 65 mls/hr IV .BY DURATION [facility] Rx#:[id number] Magnesium Sulfate-D5w Pmx 100 1 gm In Dextrose/Water 1 100ml.bag @ 100 mls/hr IVPB ONCE ONE Rx#: [id number] [facility], Adult No.4 with Vit 708 649 59 K 10 ml Trace (Conc-1Ml/ Dose) 1 ml Calcium Gluconate 1 gm Potassium Chloride 20 meq Magnesium Sulfate gm 1 gm In Amino Acid 4.25%-D10w+Lytes*E* 1,000 ml @ 65 mls/hr IV .BY DURATION [facility] Rx#: [id number] Norepinephrine 8 mg In 23.247 Sodium Chloride 0.9% 250 ml @ 0.03 MCG/KG/MIN 4. 766 mls/hr IV .Q24H [facility] Rx#:[id number] propofoL 1,000 mg In 147.822 Empty Bag 1 bag @ 15 MCG/ KG/MIN 7.389 mls/hr IV . [id number] [facility] Rx#:[id number] Oral 60 Other 60 Output: Urine 2875 875 415 Stool 1050 Other: Voiding Method Indwelling Catheter Indwelling Catheter Indwelling Catheter ABP, PAP, CO, CI - Last Documented Arterial Blood Pressure 133/59 - Exam GENERAL DESCRIPTION: An elderly male lying in bed in no distress RESPIRATORY SYSTEM: Unlabored breathing , decreased breath sounds at bases HEART: S1 S2 regular rate and rhythm , ABDOMEN: Soft , no tenderness, abdominal incision is currently dressed EXTREMITIES: No edema feet - Labs CBC & Chem 7: 05/02/22 07:00 05/02/22 07:00 Labs: Abnormal Lab Results - Last 24 Hours (Table) 04/21/22 04/21/22 04/21/22 Range/Units 12:28 12:51 17:59 WBC (3.8-10.6) k/uL RBC (4.30-5.90) m/uL Hgb (13.0-17.5) gm/dL Hct (39.0-53.0) % MCH (25.0-35.0) pg MCHC (31.0-37.0) g/dL RDW (11.5-15.5) % Neutrophils # (1.3-7.7) k/uL Lymphocytes # (1.0-4.8) k/uL ABG pH 7.54 H (7.35-7.45) ABG pO2 71 L (83-108) mmHg ABG HCO3 32 H (21-25) mmol/L ABG Total CO2 33 H (19-24) mmol/L Sodium (137-145) mmol/L Carbon Dioxide (22-30) mmol/L Creatinine (0.66-1.25) mg/dL Glucose (74-99) mg/dL POC Glucose (mg/dL) 143 H 153 H (70-110) mg/dL Calcium (8.4-10.2) mg/dL Total Protein (6.3-8.2) g/dL Albumin (3.5-5.0) g/dL 04/22/22 04/22/22 04/22/22 Range/Units 00:42 05:25 05:25 WBC 12.4 H (3.8-10.6) k/uL RBC 3.17 L (4.30-5.90) m/uL Hgb 7.8 L (13.0-17.5) gm/dL Hct 26.1 L (39.0-53.0) % MCH 24.6 L (25.0-35.0) pg MCHC 29.8 L (31.0-37.0) g/dL RDW 19.0 H (11.5-15.5) % Neutrophils # 10.7 H (1.3-7.7) k/uL Lymphocytes # 0.7 L (1.0-4.8) k/uL ABG pH (7.35-7.45) ABG pO2 (83-108) mmHg ABG HCO3 (21-25) mmol/L ABG Total CO2 (19-24) mmol/L Sodium 136 L (137-145) mmol/L Carbon Dioxide 31 H (22-30) mmol/L Creatinine 1.33 H (0.66-1.25) mg/dL Glucose 151 H (74-99) mg/dL POC Glucose (mg/dL) 162 H (70-110) mg/dL Calcium 7.4 L (8.4-10.2) mg/dL Total Protein 4.7 L (6.3-8.2) g/dL Albumin 2.2 L (3.5-5.0) g/dL 04/22/22 Range/Units 05:55 WBC (3.8-10.6) k/uL RBC (4.30-5.90) m/uL Hgb (13.0-17.5) gm/dL Hct (39.0-53.0) % MCH (25.0-35.0) pg MCHC (31.0-37.0) g/dL RDW (11.5-15.5) % Neutrophils # (1.3-7.7) k/uL Lymphocytes # (1.0-4.8) k/uL ABG pH (7.35-7.45) ABG pO2 (83-108) mmHg ABG HCO3 (21-25) mmol/L ABG Total CO2 (19-24) mmol/L Sodium (137-145) mmol/L Carbon Dioxide (22-30) mmol/L Creatinine (0.66-1.25) mg/dL Glucose (74-99) mg/dL POC Glucose (mg/dL) 167 H (70-110) mg/dL Calcium (8.4-10.2) mg/dL Total Protein (6.3-8.2) g/dL Albumin (3.5-5.0) g/dL Microbiology - Last 24 Hours (Table) 04/20/22 10:05 Gram Stain - Final Abdomen Wound Culture - Final 04/17/22 19:00 Blood Culture - Preliminary Blood No Growth after 96 hours 04/20/22 15:40 Blood Culture - Preliminary Blood No Growth after 24 hours 04/17/22 09:10 Gram Stain - Final Abdomen Wound Culture - Final Assessment and Plan (1) Intra-abdominal abscess Status: Acute Code(s): K65.1 - PERITONEAL ABSCESS SNOMED Code(s): 36398897 Plan: 1patient with admission to the hospital with symptomatic anemia 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 2blood culture has been obtained and so far negative repeat abdominal cultures are currently pending as well 3patient to continue with daptomycin Diflucan and Zosyn however keeping in mind his persistent fever will benefit from CT of abdominal pelvis to make sure no evidence of any abscess discussed with the patient nurse Time with Patient: Less than 30
--- NOTE | 2022-04-22 12:50 | P.PN ---
Subjective Progress Note Date: 04/22/22 Principal diagnosis: Acute hypoxic respiratory failure secondary to acute abdominal sepsis, and septic shock, This is a 72-year-old male patient was brought into the intensive care unit after having his second surgery on 04/17/2022 which involved expiratory laparotomy, the patient had the surgery for an underlying anastomotic leak. The patient underwent a abdominal washout and takedown of anastomosis and colectomy and colostomy in the left upper quadrant. Estimated blood loss was around 25 mL. Postop, the patient was kept intubated on a mechanical ventilator. He was brought into the intensive care unit. He was quite hypotensive. His CVP was low on the eighth. He will received a total of saline boluses and following that he was started on pressors. Currently norepinephrine is running at 0.24 mcg/kg/m. The patient is intubated on a mechanical ventilator. Is currently on propofol at 45 mcg/kg/m and the patient is currently on assist control mode at a rate of 20, tidal volume of 450, FiO2 40% and a PEEP of 5. Note that overnight, the patient was found to be acidotic. He was given IV bicarb and following that he was started on a bicarbonate infusion which is still running at the rate of 150 mL an hour. Serum bicarb today is up to 20. Blood gas from today showed a pH of 7.38 with episodes of 34 and a pO2 of 120 and this was on FiO2 of 50%. WBC count is at 7.5 with a hemoglobin of 8.4 and a platelet count of 243. He did not fluid balance is positive for liters at least over the past 12 hours. The patient remains on IV Zosyn. He is adequately sedated. His colostomy site is light pink without evidence of any necrosis. The patient has no output in the colostomy bag. Surgical 1 site was inspected. The patient has retention sutures. There is leak of serosanguineous/bloody effusion from the one surface. The patient has a large midabdominal incision extending above and below the umbilicus all the way down to his pelvis. He does have scrotal edema. He does have +1 pitting edema. Orogastric tube is also in place. Ultrasound OG is only 200 over the past 8 hours. Note that this patient has history of coronary artery disease with previous bypass surgery and had a recent stent placement in February 2022. He came into the emergency department for shortness of breath. He was found to be intimate with a hemoglobin of 6.9. Given a unit of packed RBC. His fecal occult blood was positive. He underwent EGD and colonoscopy. EGD showed moderately sized hiatal hernia and colonoscopy showed a circumferential sigmoid mass 28 cm from the anal verge and 5 mm rectal polyp. Based on that, the patient was taken to the operating room on 04/13/2022 and the patient underwent a low anterior resection on 04/13/2022. His course was comp licated by development of abdominal distention and worsening shortness of breath. This occurred on postoperative day #4. A CAT scan of the abdomen was done yesterday that showed evidence of a moderate to large amount of free intraperitoneal air consistent with anastomotic leak. There was also moderate bilateral pleural effusions. There was small amount of ascites around the liver. There was large hiatal hernia and by the edema. Chest x-ray from today is showing cardiomegaly, bilateral pleural effusion, is about the pulmonary infiltrates, thoracotomy wires, triple-lumen catheter in his left IJ and adequate positioning of the orogastric tube. There is evidence also of bilateral pleural effusions. On 04/19/2022, the patient remains intubated on a mechanical ventilator. The patient is postop day #2. THE patient had an anastomotic leak following bowel surgery in a patient presented to the intensive care following his surgery intubated on a mechanical ventilator. This morning, the patient is on propofol running at 45 mcg/kg/m. His calm and comfortable and symptoms mechanical v entilator. At the same time, is on assist control mode at a rate of 20, tidal volume of 450, FiO2 of 40% with a PEEP of 5. The blood gas from this morning shows a pH of 7.42 pCO2 of 42 and pO2 of 92. The chest x-ray from today is showing bilateral pleural effusion/consolidation is worse on the right. 82 is around 1.5 cm away from judah. Triple-lumen catheter was also placed in his left IJ. Hemodynamically, the patient is on IV fluids and currently is on bicarb infusion running at the rate of 75 mL an hour. His bicarb can be discontinued as the patient's serum bicarb is up to 25. Sodium is at 137 with a potassium level of 3.[address] Urine output is in order of 150 mL an hour. His overall fluid balance over the past 24 hours has been +3.5 L. In terms of hemodynamic support, the patient is on norepinephrine running at 0.1 mcg/kg/m. He also has vasopressin at physiologic dose at 0.03 units an hour. Cardiac rhythm is sinus. The patient was started on TPN for nutritional support which is running at the rate of 30 mL an hour. He is showing some signs of fluid overload with increase in scrotal edema. The colostomy stoma is viable. The tissue looks healthy. There is some liquidy material collecting in the bag. The abdomen is distended. Surgical wound is open and there is some limited serosanguineous material from the surgical one-sided. Orogastric tube in place. Output from the OG has been in the order of 10-20 mL over the past 24 hours. Patient is calm and comfortable. He is running episodes of fever. His T-max was 102. Blood culture is negative. Intra-abdominal cultures are still pending for now. The 2022, the patient's postop day #3 following his surgery for anastomotic leak, colectomy and diverticular colostomy. On today's evaluation, the patient remains on a mechanical ventilator. He is currently on propofol which is runn ing at 45 mcg/kg/m and his well rested. He remains on a mechanical ventilator. He is on assist control mode at the rate of 20, tidal volume of 450, FiO2 of 40% and PEEP of 5. The chest x-ray from today shows cardiomegaly, ET tube is in a good location, the patient has a triple-lumen cath in the right IJ. There is also evidence of bilateral pleural effusion which is essentially unchanged compared to yesterday and the findings of essentially stable for now. The blood gas shows a pH of 7.48 with a pCO2 of 39 and pO2 of 79. The patient is quite segments on mechanical ventilator. Hemodynamically, the patient is on KVO IV fluids. He did have significant fluid resuscitation. And IV fluids were cut down yesterday. He remains on pressors and norepinephrine is running at the rate of 0.03 mcg/kg/m. As such, his blood pressure has stabilized and he was also taken off the vasopressin. Cardiac rhythm is still sinus. Urine output is adequate for now. The patient was also started on TPN for nutritional support. On today's evaluation, the surgical wound is draining purulent foul-smelling material. The colostomy is viable and there is stool output in the colostomy bag. In terms of cultures, the wound needs to be cultured. The blood culture is negative. The abdominal wound cultures collected intraoperatively are still pending for now. The patient remains on IV Zosyn for now. Blood work shows a dull retrosternal 9 with a hemoglobin of 7.5 and a platelet count of 204. The sodium is at 135, potassium is to be replaced at 2.9 and the patient has a BUN of 22 with a creatinine of 1.36 and his acute kidney injury is also improving. Blood sugars at 202. Patient is on Levemir insulin 25 units twice a day and is also on sliding scale insulin coverage. Blood sugars under adequate control for now. Reevaluated today on 04/21/2022, patient is now postoperative day #4. Patient is status post surgery for an anastomotic leak, colectomy and diverticular colostomy. Remains in the ICU intubated and mechanically ventilated. He is on assist control rate of 20 tidal volume 450 FiO2 40% and PEEP of 5 ABG showed a pO2 of 97 pCO2 of 40 pH of 7.51 as no changes were made in the vent settings. Patient is still requiring norepinephrine at 0.02 mcg/kg/m propofol at 45 mcg/kg/m is also on TPN at 59 mL/h. Patient has good urine output, his ostomy seems to be functional. Chest x-ray continues to show small bilateral pleural effusions, endotracheal tube and catheters are in the proper position. WBC count is 12.2 hemoglobin is 7.7, basic metabolic profile is normal renal profile showed a BUN of 19 and creatinine of 1.34, steadily improving over the last 10 days. Patient is now sedated, and I plan to hold sedation on this patient today, address weaning parameters, and possibly give the patient weaning trial. Reevaluated today on 04/22/2022, patient remains in the ICU, he was extubated yesterday to BiPAP, and he remained overnight. Patient is on 12/6 and 40% FiO2 however after evaluating the patient today I switch him to nasal cannula. Patient is not in any distress. He is arousable, follows very simple instructions. And he is not in any distress his ostomy seems to be functioning he is still receiving TPN at 64 mL per hour and his IV fluid is at KVO. Leah nues to have good urine output WBC count is 12.4 hemoglobin 7.8 electrolytes are normal renal profile is showing improvement creatinine is down to 1.33. Chest x-ray continues to show small bilateral pleural effusions and mild pulmonary vascular congestion and cardiomegaly Objective - Vital Signs Vital signs: Vital Signs Temp 99.3 F 04/22/22 12:00 Pulse 120 H 04/22/22 12:10 Resp 23 04/22/22 12:00 BP 130/51 04/21/22 20:00 Pulse Ox 98 04/22/22 12:00 FiO2 40 04/22/22 08:02 Intake & Output 04/21/22 04/22/22 04/22/22 18:59 06:59 18:59 Intake Total 1717.069 935 850 Output Total 2875 1925 1020 Balance -1157.931 -990 -170 Weight 102.9 kg 98.2 kg Intake: IV 678 286 406 0.9 250 220 120 DAPTOmycin 500 mg In 50 50 Sodium Chloride 0.9% 50 ml @ 100 mls/hr IVPB Q24H [facility] Rx#:[id number] Fluconazole in NaCl,Iso- 200 100 Osm 200 mg In Saline 1 100ml.bag @ 100 mls/hr IVPB DAILY [facility] Rx#: [id number] Piperacillin-Tazobactam 3 100 100 .375 gm In Sodium Chloride 0.9% 100 ml @ 25 mls/hr IVPB Q8H [facility] Rx#: [id number] Pressure Bags 78 66 36 Intake, IV Titration 979.069 649 384 Amount Calcium Gluconate 1 gm 325 Potassium Chloride 20 meq Magnesium Sulfate gm 1 gm In Amino Acid 4.25%- D10w+Lytes*E* 1,000 ml @ 65 mls/hr IV .BY DURATION [facility] Rx#:[id number] Magnesium Sulfate-D5w Pmx 100 1 gm In Dextrose/Water 1 100ml.bag @ 100 mls/hr IVPB ONCE ONE Rx#: [id number] Mvi, Adult No.4 with Vit 708 649 59 K 10 ml Trace (Conc-1Ml/ Dose) 1 ml Calcium Gluconate 1 gm Potassium Chloride 20 meq Magnesium Sulfate gm 1 gm In Amino Acid 4.25%-D10w+Lytes*E* 1,000 ml @ 65 mls/hr IV .BY DURATION [facility] Rx#: [id number] Norepinephrine 8 mg In 23.247 Sodium Chloride 0.9% 250 ml @ 0.03 MCG/KG/MIN 4. 766 mls/hr IV .Q24H [facility] Rx#:[id number] propofoL 1,000 mg In 147.822 Empty Bag 1 bag @ 15 MCG/ KG/MIN 7.389 mls/hr IV . [id number] [facility] Rx#:[id number] Oral 60 Other 60 Output: Urine 2875 875 1020 Stool 1050 Other: Voiding Method Indwelling Catheter Indwelling Catheter Indwelling Catheter ABP, PAP, CO, CI - Last Documented Arterial Blood Pressure 136/61 - Exam Physical Exam: Revealed a 72-year-old white male in no distress, on BiPAP. Head: Atraumatic, normocephalic HEENT:[Neck is supple.] [No neck masses.] [No thyromegaly.] [No JVD.]nonicteric, no neck masses Chest: [Symmetrical chest expansion, diminished breath sounds at the bases with minimal crackles. Cardiac Exam: [Normal S1 and S2, no S3 gallop, no murmur.] Abdomen:colostomy in the left upper quadrant. The colon tissue is pink and viable. His stool output in the colostomy bag. The patient has a open midabdominal incision with serosanguineous/bloody fluid seeping from the wound surface. The base of the wound is showing purulent material especially at the edges and it's covered with some purulent drainage is also foul-smelling. No direct tenderness. No rebound tenderness. Absent bowel sounds. Patient has scrotal edema. Extremities: [No clubbing, 1+ bipedal edema, no cyanosis.]: Good pulses bilaterally. Neurological Exam: Alert and oriented 3 no focal deficit. Psychiatric: Normal mood, affect and normal mental status examination. - Labs CBC & Chem 7: 04/22/22 05:25 04/22/22 05:25 Labs: Abnormal Lab Results - Last 24 Hours (Table) 04/21/22 04/21/22 04/22/22 Range/Units 12:51 17:59 00:42 WBC (3.8-10.6) k/uL RBC (4.30-5.90) m/uL Hgb (13.0-17.5) gm/dL Hct (39.0-53.0) % MCH (25.0-35.0) pg MCHC (31.0-37.0) g/dL RDW (11.5-15.5) % Neutrophils # (1.3-7.7) k/uL Lymphocytes # (1.0-4.8) k/uL ABG pH 7.54 H (7.35-7.45) ABG pO2 71 L (83-108) mmHg ABG HCO3 32 H (21-25) mmol/L ABG Total CO2 33 H (19-24) mmol/L Sodium (137-145) mmol/L Carbon Dioxide (22-30) mmol/L Creatinine (0.66-1.25) mg/dL Glucose (74-99) mg/dL POC Glucose (mg/dL) 153 H 162 H (70-110) mg/dL Calcium (8.4-10.2) mg/dL Total Protein (6.3-8.2) g/dL Albumin (3.5-5.0) g/dL 04/22/22 04/22/22 04/22/22 Range/Units 05:25 05:25 05:55 WBC 12.4 H (3.8-10.6) k/uL RBC 3.17 L (4.30-5.90) m/uL Hgb 7.8 L (13.0-17.5) gm/dL Hct 26.1 L (39.0-53.0) % MCH 24.6 L (25.0-35.0) pg MCHC 29.8 L (31.0-37.0) g/dL RDW 19.0 H (11.5-15.5) % Neutrophils # 10.7 H (1.3-7.7) k/uL Lymphocytes # 0.7 L (1.0-4.8) k/uL ABG pH (7.35-7.45) ABG pO2 (83-108) mmHg ABG HCO3 (21-25) mmol/L ABG Total CO2 (19-24) mmol/L Sodium 136 L (137-145) mmol/L Carbon Dioxide 31 H (22-30) mmol/L Creatinine 1.33 H (0.66-1.25) mg/dL Glucose 151 H (74-99) mg/dL POC Glucose (mg/dL) 167 H (70-110) mg/dL Calcium 7.4 L (8.4-10.2) mg/dL Total Protein 4.7 L (6.3-8.2) g/dL Albumin 2.2 L (3.5-5.0) g/dL 04/22/22 Range/Units 12:20 WBC (3.8-10.6) k/uL RBC (4.30-5.90) m/uL Hgb (13.0-17.5) gm/dL Hct (39.0-53.0) % MCH (25.0-35.0) pg MCHC (31.0-37.0) g/dL RDW (11.5-15.5) % Neutrophils # (1.3-7.7) k/uL Lymphocytes # (1.0-4.8) k/uL ABG pH (7.35-7.45) ABG pO2 (83-108) mmHg ABG HCO3 (21-25) mmol/L ABG Total CO2 (19-24) mmol/L Sodium (137-145) mmol/L Carbon Dioxide (22-30) mmol/L Creatinine (0.66-1.25) mg/dL Glucose (74-99) mg/dL POC Glucose (mg/dL) 188 H (70-110) mg/dL Calcium (8.4-10.2) mg/dL Total Protein (6.3-8.2) g/dL Albumin (3.5-5.0) g/dL Microbiology - Last 24 Hours (Table) 04/20/22 10:05 Gram Stain - Final Abdomen Wound Culture - Final 04/17/22 19:00 Blood Culture - Preliminary Blood No Growth after 96 hours 04/20/22 15:40 Blood Culture - Preliminary Blood No Growth after 24 hours 04/17/22 09:10 Gram Stain - Final Abdomen Wound Culture - Final Assessment and Plan Assessment: Impression: Acute hypoxic respiratory failure secondary to abdominal sepsis and septic shock, patient was extubated uneventfully on 04/21/2022. Acute surgical abdomen secondary to anastomotic leak following a sigmoid resection and low AP resection from initial surgery performed on 04/13/2022 patient is now postoperative day #4, status post left colectomy and diverting colostomy Septic shock secondary to above secondary to abdominal sepsis, remains on antibiotics. 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 Valvular heart disease with moderate degree of mitral regurgitation and severe tricuspid regurgitation with pulmonary hypertension Underlying COPD Benign prostatic hypertrophy Recommendation: Continue to monitor in the ICU on nasal cannula, transitioned from BiPAP to nasal cannula. Continue antibiotics Continue Diflucan Continue IV fluid at KVO Continue nutritional support/TPN Continue GI and DVT prophylaxis Continue insulin bronchodilators for his underlying COPD We will continue to follow. Possibly transfer out of the ICU to a medical floor in the next 24 hours Time with Patient: Less than 30
[2022-04-22] MEDS: METOPROLOL TARTRATE 25 MG TAB PO SCH ×2 (13:45→20:09)
[2022-04-22] MEDS: 1: MVI, ADULT NO.4 WITH VIT K 10 ML, TRACE (CONC-1ML/DOSE) 1 ML, CALCIUM GLUCONATE 1 GM, IV SCH ×6 (15:26)
--- NOTE | 2022-04-22 16:00 | P.PN ---
Subjective Progress Note Date: 04/22/22 Patient is a 72-year-old male with a known history of coronary artery disease status post CABG and recent stent placement in February 2022 initially presented to ER with complaints of shortness of breath and exertional dyspnea. Patient initially thought it was due to his heart condition and went to ER. Patient was found to have a hemoglobin of 6.9 and received 1 unit of PRBC. Patient was tested positive for FOBT. Patient is also taking aspirin and Plavix from recent stent placement. Patient also states that he has been taking Motrin for the last couple of weeks for his neuropathy pain in his feet. Denies any complaints of hematemesis dark-colored stools. Patient was transferred to [facility] for GI evaluation. On admission WBC 4.4 hemoglobin 7.5 MCV 79.7 and platelets 243 Sodium 143 potassium 4.2 chloride 101 bicarb is 19 BUN 25 and creatinine 1.72 Calcium 7.4 04/11/2022 Patient is currently resting in bed. Awake alert and oriented x3. No complaints of chest pain or shortness of breath. Otherwise underwent EGD and colonoscopy today. EGD showed moderate size hiatal hernia but no evidence of esophagitis or peptic ulcer disease. No evidence of GI bleed. Colonoscopy showed a) Near circumferential sigmoid colon mass at 28 cm from the anal verge status post multiple biopsies followed by tattooing with Aiyana ink b) 5 mm rectal polyp status post polypectomy General surgery was consulted and follow-up biopsy report.. Hemoglobin is stable at 8.6 otherwise. Denies any complaints of nausea or vomiting. Patient was started on clear liquid diet and follow H&H. 04/12/2022 Patient is currently resting in the bed. Awake alert and oriented x3. No complaints of chest pain or shortness of breath. No nausea vomiting abdominal pain or diarrhea. No cough or sputum production. Patient was seen by general surgery and is planning for or tomorrow. Antiplatelets on hold. Laboratory data reviewed. Patient is being current on iron supplementation Protonix IV push daily. 04/13/2022 Patient is currently lying in bed. Awake alert and oriented. Pain is fairly controlled. Status post low anterior resection of the sigmoid colon. Postoperative day 0 No fever no chills. Currently on room air. No nausea vomiting or diarrhea. Laboratory data showed WBC 5.3 hemoglobin 7.7 platelets 216 sodium 140 potassium 3.8 chloride 106 bicarb is 22 BUN 16 and creatinine 1.69. Calcium 7.5. General surgery and cardiology is on board. 04/14/2022 Patient is evaluated today sitting up in chair currently postoperative day #1 low anterior resection for sigmoid colon mass with pathology currently pending at this time. Patient is currently on clear liquid diet. Not passing gas yet and no BM. Reports controlled incisional abdominal pain. Wound vac is in place and intact. Patient is currently on D5 0.45 normal saline with potassium. Creatinine is up to 2.0 today. 04/15/2022 Patient is evaluated today on stepdown unit currently postoperative day #2 sigmoid colon resection. Aspirin and plavix remain on hold. Cardiology following closely. Blood pressure has improved to 139/71 today. Indwelling catheter removed yesterday afternoon, patient has issues with urinary retention overnight and for this reason normal saline was placed on hold. Patient has been unable to void and urinary strait cath was unable to produce urine. Bladder scan today showing 70 mls in urinary bladder. Creatinine is up to 2.86 today. Urology has been consulted for placement of urinary catheter and IV fluids have been resumed at an increased rate. Continues on clear liquid diet. Reports abdominal pain is controlled today. Blood glucose has been increased and insulin has been added. Remains afebrile, heart rate 72, blood pressure 120/68, 92% room air. 04/16/2022 Patient is evaluated on medical floor. he is postoperative day #3 sigmoid colon resection. Patient had urinary catheter placed by urology for urinary retention. Overnight has had 225 mLs of urine output, he is continued on normal saline at 125 mls/hr. Creatinine today has improved 2.29. Sodium up to 134. Renal ultrasound has been ordered and will repeat labs in AM. Patient had a bowel movement today he reports. He has some abdominal distention, states he is not passing much gas and feels bloated. Hemodynamically stable. 04/17/2022 Patient is evaluated on medical floor. Patients abdomen appears more distended with increased shortness of breath. He is postoperative day #4 low anterior resection of sigmoid colon secondary to mass. 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 He had chest xray completed with report called by radiology with large amount of free intraperitoneal air and bilateral infiltrate and small effusion. Correlate for mild venous congestion. Abdominal pelvis CT was ordered and results showing moderate to large amount of free intraperitoneal air may be related to patients interval surgery and colonic resection. Moderate bilateral pleural effusions, small amount of ascites around the liver, body wall edema, large hiatal hernia. Patient will undergo exploratory laporatomy today. Patient was noted to have purulent drainage from wound vac and also from midline incision which was cultured and patient was started on antibiotics. Blood cultures will be taken as well. Patient has been hydrated overnight with normal saline and creatinine has improved to 2.0, however his urine output remains marginal with 600 mls in the last 24 hours from indwelling urinary catheter. Renal ultrasound showing possible mild thinning of left renal cortex correlate for chronic medical renal disease with no hydronephrosis or nephrolisthiasis. Labs today showing white count 7.98, hgb 7.1, platelets 97, sodium 138, potassium 4.7, BUN 36.3, creatinine 2.0. Urinalysis negative. Patient is afebrile, heart rate 78, blood pressure 142/63, 100% on 3L nasal cannula. 04/18/2022 Patient is evaluated in the intensive care unit currently intubated on mechanical ventilator and sedated. Patient was found to have free air in the abdomen and was taken for exploratory laporatomy yesterday and was found to have ischemic bowel. Patient had take down of the anastamosis and colectomy, washout of abdomen and colostomy left upper quadrant. Patient was taken from the OR and admitted to the intensive care unit. Patient is evaluated today postoperative day #1, and also postoperative day #5 low anterior resection. Patient has OG tube in place with 200 mls of gastric output total which brown in color with black noted in the collection cannister. He did receive 2 units of PRBCs and hemoglobin is stable today at 8.4. He received 1 unit of PRBC on admission as well. He continues on aspirin 81 mg daily and plavix remains on hold. Cardiology following. Patient had ABGs done today showing pH of 7.38, pCO2 of 34, pO2 of 120 HCO3 of 20. He will continue to remain on mechanical ventilator overnight. Blood pressure remains on the lower side and patient is currently on lovephed running at 0.28 mcg/kg/min. Nephrology is following and patient continues on bicarbonate gtt running at 75 mls/hr. Chest xray today reports persistent areas of consolidation pleural effusion correlate for CHF, superimposed pneumonia not excluded. Blood culture and wound cultures are pending and patient has been started on IV zosyn. Patient will be started on TPN today. He is sedated with propofol. Surgical site is examined with retention sutures in place covered with ABD dressing. Additionally patient has LUQ colostomy in place with stoma showing no signs of necrosis and there is small amt of brown liquid stool in ostomy. Labs today showing white count of 7.5, hgb 8.4, sodium 134, potassium 3.7, BUN 32, creatinine 1.66, blood glucose 242, calcium 6.4, phosphorous 3.3, magnesium 1.8, albumin 2.2. Patient has temp of 100.7 today, heart rate 82, blood pressure 99/43, and oxygen saturation of 98% on mechanical ventilator with 40% FiO2. 04/19/2022 Patient is evaluated in the intensive care unit. He is currently intubated on mechanical ventilator with FiO2 of 40% He is receiving TPN. He is sedated with propofol. He is requiring levophed and vasopressin has been added. Blood pressures are improved into the 120s systolic. Creatinine has also improved to 1.56. Blood culture and wound culture are pending and IV zosyn is continued. Chest xray today showing cardiomegaly with pulmonary vascular congestion and bilateral pleural effusions. IV bicarb has been discontinued. Scrotal edema is increased and patient has generalized peripheral edema as well. There is NG tube in place with minimal output and continues to be black/dark brown in color. Patient has watery output from ostomy. Retention sutures are removed and abdomen is open and has some sanguineous drainage. He appears comfortable. Urine output has increased. IV tylenol in place for fever. 04/20/2022 Patient continues to be monitored closely in intensive care unit. He is currently intubated and sedated on the mechanical ventilator with FiO2 of 40%. Blood gases are done today with pH of 7.48, pO2 79. Patient is currently running temp intermittently. He continues on levophed and vasopressin is on hold. Patient is currently sedated with propofol. Abdomen culture from 04/17 showing multiple gram negative bacilli colonies and also group D enterococcus. Patient remains on IV zosyn and has also been started on IV diflucan and also IV vancomycin. Chest xray today showing stable support tubes, similiar cardiomegaly, suspected similar pleural effusions. Labs today showing white count of 9.0, hgb of 7.5. Creatinine continues to improve currently 1.36, potassium 2.9. Blood glucose up in the 200s and insulin continues to be increased. Patient continues on TPN. Abdominal wound is open and packed with gauze with foul odor noted. Bowel sounds are increased and patient is making stool from ostomy today light brown and has some formed stool. 04/21/2022 Patient is evaluated in intensive care unit during sedation holiday. He has spontaneous eye opening and is following commands. Remains lethargic. He has OG tube in place. He continues on mechanical ventilator with FiO2 of 40%. ABGs are done patient will be extubated today. He has stool from ostomy with increased bowel sounds. Repeat abdominal culture is pending. Anaerobic culture is showing 2 gram negative bacilli species. Patient continues on IV daptomycin, IV fluc onazole, and IV zosyn. Infectious disease on and following abdominal cultures. Patient is off pressor support at this time and blood pressures are in the 140s systolic. He has heart rate of 110 and atenolol can be resumed. Patient has T- Max of 100.4 today. Chest xray showing persistent bilateral pleural effusions. 04/22/2022 Patient continues to be monitored closely in the intensive care unit and was successfully extubated yesterday. He has diffuse generalized weakness. He is alert x 2 and agitated today requesting to get up and out of bed. He has physical therapy on to work with him today. He has NG tube removed. Continues on nasal cannula. Abdominal culture repeat is again finalized as gram negative bacilli x 3 and Group D enterococcus and polymicrobial species. Discussed with [facility] and specimen will continue to be work up for microsensitivities. This was discussed with ID who is recommending follow up CT scan. Discussed recommendations with surgeon recommending to hold off on CT for now and monitor clinically. Patient continues on IV daptomcyin and IV zosyn. He is also on IV fluconazole. He continues to make stool from ostomy and bowel sounds are active, his dressing is intact with some drainage noted. He had chest xray today showing small bilateral pleural effusions with mild pulmonary vascular congestion and cardiomegaly. Patient continues with significant peripheral edema and scrotal edema. Patient did receive a dose of IV lasix 20 mg today. He is off vasopressor support. His blood pressure remains stable in the 120s systolic and heart rate is elevated in the low 100s. He has been resumed on low dose betablocker. Patient has diuresed over 5L in the last 24 hours. White count of 12.4 today, hemoglobin stable at 7.8, sodium of 136, BUN 20, creatinine 1.33, blood glucose of 188, calcium 7.4. He continues with fever T max of 100.9 in the last 24 hours. Unable to complete review of systems patient is intubated and sedated. PHYSICAL EXAMINATION: Patient is evaluated in ICU intubated and sedated. HEENT: Normocephalic. Neck is supple. Pupils reactive. Nostrils clear. Oral cavity is moist. Neck reveals no JVD, carotid bruits, or thyromegaly. CHEST EXAMINATION: Trachea is central. Symmetrical expansion. Lung escalante clear to auscultation and percussion. CARDIAC: Normal S1, S2 with no gallops. No murmurs ABDOMEN: Bowel sounds are increased today, LUQ ostomy in place with stool output. Gauze packing to open abdominal wound. Extremities: reveal no edema. No clubbing or cyanosis Neurologically Intubated and sedated Skin: No rash or skin lesions. Lower extremity edema and significant scrotal edema. Peripheral edema. Psychiatric: unable to assess at this time Musculoskeletal: No joint swelling or deformity. Assessment and Plan Assessment Sigmoid colon mass status post low anterior resection postoperative day #9 with 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 Anastomotic leak and ischemic bowel following low anterior resection patient is currently postoperative day #5 abdominal washout, takedown of anastamosis with left colectomy and colostomy formation LUQ. Shock likely septic shock secondary to above and patient is currently off vasopressor support and blood pressure is stable Acute hypoxic respiratory failure requiring intubation, patient has been extubated on 04/21/2022 and continues on 5L of oxygen via nasal cannula. Acute blood loss anemia from GI bleed secondary to sigmoid colon mass. Patient has received 3 units of blood this admission. Hemoglobin stable at 7.8 Acute kidney injury prerenal with acute tubular necrosis, improving Postoperative urinary retention with indwelling catheter placed Microcytic anemia with iron deficiency. Hyperglycemia Coronary artery disease with history of stent placement in February 2022 Coronary artery disease history of CABG GI and DVT prophylaxis with SCDs Full Code Plan: Continue on IV antibiotics and local wound care, ID on board and following cultures Patient continues to have fever. Continues on tylenol as needed and incentive spirometer IV lasix x 1 today and monitor intake and output Monitor H&H closely. Transfusion of hemoglobin less than 7. Plavix remains on hold Continue on TPN and blood glucose monitoring Multiple consultations following including nephrology, urology, cardiology, general surgery, pulmonary baggage agent Repeat labs in AM Physical therapy/Occupational therapy in progress Ostomy wound care following and appliance change at bedside yesterday Condition remains guarded. The impression and plan of care has been dictated by Carmita Johnson, Nurse Practitioner as directed. Dr. kAbar MD I have performed a history and physical examination and medical decision making of this patient, discussed the same with the dictator, and agree with the dictators assessment and plan as written, documented as a scribe. Based on total visit time, I have performed more than 50% of this visit. Objective - Vital Signs Vital signs: Vital Signs Temp 99.4 F 04/22/22 08:00 Pulse 108 H 04/22/22 09:00 Resp 21 04/22/22 09:00 BP 130/51 04/21/22 20:00 Pulse Ox 98 04/22/22 09:00 FiO2 40 04/22/22 08:02 Intake & Output 04/21/22 04/22/22 04/22/22 18:59 06:59 18:59 Intake Total 1717.069 935 367 Output Total 2875 1925 295 Balance -1157.931 -990 72 Weight 102.9 kg 98.2 kg Intake: IV 678 286 178 0.9 250 220 60 DAPTOmycin 500 mg In 50 Sodium Chloride 0.9% 50 ml @ 100 mls/hr IVPB Q24H [facility] Rx#:[id number] Fluconazole in NaCl,Iso- 200 100 Osm 200 mg In Saline 1 100ml.bag @ 100 mls/hr IVPB DAILY [facility] Rx#: [id number] Piperacillin-Tazobactam 3 100 .375 gm In Sodium Chloride 0.9% 100 ml @ 25 mls/hr IVPB Q8H [facility] Rx#: [id number] Pressure Bags 78 66 18 Intake, IV Titration 979.069 649 189 Amount Calcium Gluconate 1 gm 130 Potassium Chloride 20 meq Magnesium Sulfate gm 1 gm In Amino Acid 4.25%- D10w+Lytes*E* 1,000 ml @ 65 mls/hr IV .[facility] Rx#:[id number] Magnesium Sulfate-D5w Pmx 100 1 gm In Dextrose/Water 1 100ml.bag @ 100 mls/hr IVPB ONCE ONE Rx#: [id number] Mvi, Adult No.4 with Vit 708 649 59 K 10 ml Trace (Conc-1Ml/ Dose) 1 ml Calcium Gluconate 1 gm Potassium Chloride 20 meq Magnesium Sulfate gm 1 gm In Amino Acid 4.25%-D10w+Lytes*E* 1,000 ml @ 65 mls/hr IV .[facility] Rx#: [id number] Norepinephrine 8 mg In 23.247 Sodium Chloride 0.9% 250 ml @ 0.03 MCG/KG/MIN 4. 766 mls/hr IV .Q24H [facility] Rx#:[id number] propofoL 1,000 mg In 147.822 Empty Bag 1 bag @ 15 MCG/ KG/MIN 7.389 mls/hr IV . [id number] [facility] Rx#:[id number] Other 60 Output: Urine 2875 875 295 Stool 1050 Other: Voiding Method Indwelling Catheter Indwelling Catheter ABP, PAP, CO, CI - Last Documented Arterial Blood Pressure 129/55 - Labs CBC & Chem 7: 04/22/22 05:25 04/22/22 05:25 Labs: Abnormal Lab Results - Last 24 Hours (Table) 04/21/22 04/21/22 04/21/22 Range/Units 12:28 12:51 17:59 WBC (3.8-10.6) k/uL RBC (4.30-5.90) m/uL Hgb (13.0-17.5) gm/dL Hct (39.0-53.0) % MCH (25.0-35.0) pg MCHC (31.0-37.0) g/dL RDW (11.5-15.5) % Neutrophils # (1.3-7.7) k/uL Lymphocytes # (1.0-4.8) k/uL ABG pH 7.54 H (7.35-7.45) ABG pO2 71 L (83-108) mmHg ABG HCO3 32 H (21-25) mmol/L ABG Total CO2 33 H (19-24) mmol/L Sodium (137-145) mmol/L Carbon Dioxide (22-30) mmol/L Creatinine (0.66-1.25) mg/dL Glucose (74-99) mg/dL POC Glucose (mg/dL) 143 H 153 H (70-110) mg/dL Calcium (8.4-10.2) mg/dL Total Protein (6.3-8.2) g/dL Albumin (3.5-5.0) g/dL 04/22/22 04/22/22 04/22/22 Range/Units 00:42 05:25 05:25 WBC 12.4 H (3.8-10.6) k/uL RBC 3.17 L (4.30-5.90) m/uL Hgb 7.8 L (13.0-17.5) gm/dL Hct 26.1 L (39.0-53.0) % MCH 24.6 L (25.0-35.0) pg MCHC 29.8 L (31.0-37.0) g/dL RDW 19.0 H (11.5-15.5) % Neutrophils # 10.7 H (1.3-7.7) k/uL Lymphocytes # 0.7 L (1.0-4.8) k/uL ABG pH (7.35-7.45) ABG pO2 (83-108) mmHg ABG HCO3 (21-25) mmol/L ABG Total CO2 (19-24) mmol/L Sodium 136 L (137-145) mmol/L Carbon Dioxide 31 H (22-30) mmol/L Creatinine 1.33 H (0.66-1.25) mg/dL Glucose 151 H (74-99) mg/dL POC Glucose (mg/dL) 162 H (70-110) mg/dL Calcium 7.4 L (8.4-10.2) mg/dL Total Protein 4.7 L (6.3-8.2) g/dL Albumin 2.2 L (3.5-5.0) g/dL 04/22/22 Range/Units 05:55 WBC (3.8-10.6) k/uL RBC (4.30-5.90) m/uL Hgb (13.0-17.5) gm/dL Hct (39.0-53.0) % MCH (25.0-35.0) pg MCHC (31.0-37.0) g/dL RDW (11.5-15.5) % Neutrophils # (1.3-7.7) k/uL Lymphocytes # (1.0-4.8) k/uL ABG pH (7.35-7.45) ABG pO2 (83-108) mmHg ABG HCO3 (21-25) mmol/L ABG Total CO2 (19-24) mmol/L Sodium (137-145) mmol/L Carbon Dioxide (22-30) mmol/L Creatinine (0.66-1.25) mg/dL Glucose (74-99) mg/dL POC Glucose (mg/dL) 167 H (70-110) mg/dL Calcium (8.4-10.2) mg/dL Total Protein (6.3-8.2) g/dL Albumin (3.5-5.0) g/dL Microbiology - Last 24 Hours (Table) 04/20/22 10:05 Gram Stain - Final Abdomen Wound Culture - Final 04/17/22 19:00 Blood Culture - Preliminary Blood No Growth after 96 hours 04/20/22 15:40 Blood Culture - Preliminary Blood No Growth after 24 hours 04/17/22 09:10 Gram Stain - Final Abdomen Wound Culture - Final Assessment and Plan Time with Patient: Greater than 30
[2022-04-22 18:25] LABS: Glucose,Whole Blood 144 mg/dL (70-110)
[2022-04-22 23:30] LABS: Glucose,Whole Blood 154 mg/dL (70-110)
[2022-04-23] MEDS: HEPARIN SODIUM,PORCINE/PF 5,000 UNIT/0.5 ML SYRINGE SQ SCH ×3 (00:23→16:14)
[2022-04-23] MEDS: INSULIN ASPART (NovoLOG) 100 UNIT/ML VIAL SQ SCH ×4 (00:23→16:18)
[2022-04-23] MEDS: IPRATROPIUM 0.5 MG/2.5 ML NEBU INHALATION SCH ×6 (00:39→20:28)
[2022-04-23] MEDS: ALBUTEROL NEBULIZED 2.5 MG/3 ML INHALATION SCH ×6 (00:39→20:28)
[2022-04-23] MEDS: PIPERACILLIN-TAZOBACTAM 3.375 GM in SODIUM CHLORIDE 0.9% 100 ML IVPB SCH ×2 (03:13→10:47)
[2022-04-23] MEDS: 1: MVI, ADULT NO.4 WITH VIT K 10 ML, TRACE (CONC-1ML/DOSE) 1 ML, CALCIUM GLUCONATE 1 GM, IV SCH ×13 (04:54→22:00)
[2022-04-23 05:10] LABS: Anisocytosis Slight; HCT 25.1 % (39.0-53.0); HGB 7.6 gm/dL (13.0-17.5); Hypochromasia Marked; MCHC 30.3 g/dL (31.0-37.0); MCV 82.5 fL (80.0-100.0); Mean Platelet Volume 9.3; Microcytosis Slight; Platelet Count 359 k/uL (150-450); Poikilocytosis Slight; RBC 3.04 m/uL (4.30-5.90); WBC 13.5 k/uL (3.8-10.6)
[2022-04-23 05:37] LABS: Albumin 2.3 g/dL (3.5-5.0); Calcium 7.5 mg/dL (8.4-10.2); Magnesium 1.9 mg/dL (1.6-2.3); Phosphorus 3.1 mg/dL (2.5-4.5); Potassium 4.1 mmol/L (3.5-5.1); Total Bilirubin 0.5 mg/dL (0.2-1.3); Total Protein 4.9 g/dL (6.3-8.2)
[2022-04-23] MEDS ORDERED: MAGNESIUM SULFATE-D5W PMX 1 GM in DEXTROSE/WATER 1 100ML.BAG IVPB ONE (05:46)
[2022-04-23 06:09] LABS: Glucose,Whole Blood 124 mg/dL (70-110)
[2022-04-23] MEDS: ACETAMINOPHEN TAB 500 MG TAB PO PRN (09:30)
[2022-04-23] MEDS: ASPIRIN 81 MG PO SCH (09:30)
[2022-04-23] MEDS: TAMSULOSIN 0.4 MG CAP.ER.24H PO SCH (09:30)
[2022-04-23] MEDS: METOPROLOL TARTRATE 25 MG TAB PO SCH ×2 (09:30→20:41)
[2022-04-23] MEDS: ATORVASTATIN 40 MG TAB PO SCH (09:30)
[2022-04-23] MEDS: HYDROcodone/APAP 5-325MG 1 EACH TAB PO PRN ×2 (09:31→16:15)
[2022-04-23] MEDS: FAMOTIDINE 20 MG/2 ML VIAL IV SCH (09:34)
[2022-04-23] MEDS: ONDANSETRON 4 MG/2 ML VIAL IVP PRN (09:34)
[2022-04-23] MEDS: FLUCONAZOLE IN NACL,ISO-OSM 200 MG in SALINE 1 100ML.BAG IVPB SCH (09:37)
[2022-04-23] MEDS: SIMETHICONE 40 MG/0.6 ML DROPS 2,000 MG/30 ML BOTTLE PO SCH ×4 (09:43→21:00)
[2022-04-23] MEDS: INSULIN DETEMIR (LEVEMIR) 100 UNIT/ML SYR SQ SCH ×2 (09:59→20:41)
[2022-04-23 10:09] LABS: Glucose,Whole Blood 155 mg/dL (70-110)
[2022-04-23] MEDS: HYDROmorphone 1 MG/ML 1 ML SYRINGE IVP PRN ×4 (10:36→20:22)
[2022-04-23 11:57] LABS: Glucose,Whole Blood 187 mg/dL (70-110)
--- NOTE | 2022-04-23 12:00 | P.PN ---
Subjective Progress Note Date: 04/23/22 Principal diagnosis: Intra-abdominal infection Patient is a 72 year old male presented to the hospital with symptomatic anemia did have low anterior resection subsequently did have a anastomosis leak on 04/17/2022 with laparotomy and resection of ischemic portion abdominal culture were disregarded by micro-lab as possible contamination, subsequently did have a fever and more purulent drainage from abdominal incision that prompted with diarrhea infectious disease consultation On today's evaluation that is 04/23/2022, the patient is afebrile this morning , the patient is currently off the pressor support and is breathing comfortably on 2 L nasal cannula oxygen, the patient denies having any chest pain or shortness of Cough Abdominal Pain Has Decreased in Intensity No Nausea No Vomiting Mentioned Feeling Slightly Better Objective - Vital Signs Vital signs: Vital Signs Temp 98.2 F 04/23/22 08:00 Pulse 105 H 04/23/22 09:00 Resp 20 04/23/22 09:00 BP 130/51 04/21/22 20:00 Pulse Ox 96 04/23/22 09:00 FiO2 40 04/22/22 08:02 Intake & Output 04/22/22 04/23/22 04/23/22 18:59 06:59 18:59 Intake Total 2549 2583 Output Total 1920 960 Balance 629 1623 Weight 95.5 kg Intake: IV 562 1738 0.9 240 260 DAPTOmycin 500 mg In 50 Sodium Chloride 0.9% 50 ml @ 100 mls/hr IVPB Q24H [facility] Rx#:[id number] Fluconazole in NaCl,Iso- 100 Osm 200 mg In Saline 1 100ml.bag @ 100 mls/hr IVPB DAILY [facility] Rx#: [id number] Magnesium Sulfate-D5w Pmx 100 1 gm In Dextrose/Water 1 100ml.bag @ 100 mls/hr IVPB Q1H [facility] Rx#: [id number] Piperacillin-Tazobactam 3 100 1300 .375 gm In Sodium Chloride 0.9% 100 ml @ 25 mls/hr IVPB Q8H [facility] Rx#: [id number] Pressure Bags 72 78 Intake, IV Titration 1807 845 Amount Calcium Gluconate 1 gm 715 845 Potassium Chloride 20 meq Magnesium Sulfate gm 1 gm In Amino Acid 4.25%- D10w+Lytes*E* 1,000 ml @ 65 mls/hr IV .BY DURATION [facility] Rx#:[id number] Mvi, Adult No.4 with Vit 1092 K 10 ml Trace (Conc-1Ml/ Dose) 1 ml Calcium Gluconate 1 gm Potassium Chloride 20 meq Magnesium Sulfate gm 1 gm In Amino Acid 4.25%-D10w+Lytes*E* 1,000 ml @ 65 mls/hr IV .BY DURATION [facility] Rx#: [id number] Oral 180 Output: Urine 1920 860 Stool 100 Other: Voiding Method Indwelling Catheter Indwelling Catheter ABP, PAP, CO, CI - Last Documented Arterial Blood Pressure 126/50 - Exam GENERAL DESCRIPTION: An elderly male lying in bed in no distress RESPIRATORY SYSTEM: Unlabored breathing , decreased breath sounds at bases HEART: S1 S2 regular rate and rhythm , ABDOMEN: Soft , no tenderness, abdominal incision is currently dressed EXTREMITIES: No edema feet - Labs CBC & Chem 7: 05/02/22 07:00 05/02/22 07:00 Labs: Abnormal Lab Results - Last 24 Hours (Table) 04/22/22 04/22/22 04/22/22 Range/Units 12:20 18:23 23:29 WBC (3.8-10.6) k/uL RBC (4.30-5.90) m/uL Hgb (13.0-17.5) gm/dL Hct (39.0-53.0) % MCHC (31.0-37.0) g/dL RDW (11.5-15.5) % Sodium (137-145) mmol/L BUN (9-20) mg/dL Glucose (74-99) mg/dL POC Glucose (mg/dL) 188 H 144 H 154 H (70-110) mg/dL Calcium (8.4-10.2) mg/dL Alkaline Phosphatase (38-126) U/L Total Protein (6.3-8.2) g/dL Albumin (3.5-5.0) g/dL 04/23/22 04/23/22 04/23/22 Range/Units 05:00 05:00 06:07 WBC 13.5 H (3.8-10.6) k/uL RBC 3.04 L (4.30-5.90) m/uL Hgb 7.6 L (13.0-17.5) gm/dL Hct 25.1 L (39.0-53.0) % MCHC 30.3 L (31.0-37.0) g/dL RDW 19.0 H (11.5-15.5) % Sodium 134 L (137-145) mmol/L BUN 23 H (9-20) mg/dL Glucose 113 H (74-99) mg/dL POC Glucose (mg/dL) 124 H (70-110) mg/dL Calcium 7.5 L (8.4-10.2) mg/dL Alkaline Phosphatase 139 H (38-126) U/L Total Protein 4.9 L (6.3-8.2) g/dL Albumin 2.3 L (3.5-5.0) g/dL 04/23/22 Range/Units 10:07 WBC (3.8-10.6) k/uL RBC (4.30-5.90) m/uL Hgb (13.0-17.5) gm/dL Hct (39.0-53.0) % MCHC (31.0-37.0) g/dL RDW (11.5-15.5) % Sodium (137-145) mmol/L BUN (9-20) mg/dL Glucose (74-99) mg/dL POC Glucose (mg/dL) 155 H (70-110) mg/dL Calcium (8.4-10.2) mg/dL Alkaline Phosphatase (38-126) U/L Total Protein (6.3-8.2) g/dL Albumin (3.5-5.0) g/dL Microbiology - Last 24 Hours (Table) 04/20/22 10:05 Gram Stain - Final Abdomen Wound Culture - Preliminary Enterobacter cloacae Enterobacter cloacae#2 Escherichia coli Group D Enterococcus 04/17/22 19:00 Blood Culture - Preliminary Blood No Growth after 120 hours 04/20/22 15:40 Blood Culture - Preliminary Blood No Growth after 48 hours Assessment and Plan (1) Intra-abdominal abscess Status: Acute Code(s): K65.1 - PERITONEAL ABSCESS SNOMED Code(s): 11309105 Plan: 1patient with admission to the hospital with symptomatic anemia 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 2blood culture has been obtained and so far negative repeat abdominal cultures did grew multidrug resistant Enterobacter E. coli and enterococcus 3we will discontinue Zosyn and start the patient on meropenem continue with daptomycin while waiting for sensitivity on enterococcus Time with Patient: Greater than 30
--- NOTE | 2022-04-23 12:01 | P.PN ---
Subjective Progress Note Date: 04/23/22 Principal diagnosis: Acute hypoxic respiratory failure secondary to acute abdominal sepsis, and septic shock, This is a 72-year-old male patient was brought into the intensive care unit after having his second surgery on 04/17/2022 which involved expiratory laparotomy, the patient had the surgery for an underlying anastomotic leak. The patient underwent a abdominal washout and takedown of anastomosis and colectomy and colostomy in the left upper quadrant. Estimated blood loss was around 25 mL. Postop, the patient was kept intubated on a mechanical ventilator. He was brought into the intensive care unit. He was quite hypotensive. His CVP was low on the eighth. He will received a total of saline boluses and following that he was started on pressors. Currently norepinephrine is running at 0.24 mcg/kg/m. The patient is intubated on a mechanical ventilator. Is currently on propofol at 45 mcg/kg/m and the patient is currently on assist control mode at a rate of 20, tidal volume of 450, FiO2 40% and a PEEP of 5. Note that overnight, the patient was found to be acidotic. He was given IV bicarb and following that he was started on a bicarbonate infusion which is still running at the rate of 150 mL an hour. Serum bicarb today is up to 20. Blood gas from today showed a pH of 7.38 with episodes of 34 and a pO2 of 120 and this was on FiO2 of 50%. WBC count is at 7.5 with a hemoglobin of 8.4 and a platelet count of 243. He did not fluid balance is positive for liters at least over the past 12 hours. The patient remains on IV Zosyn. He is adequately sedated. His colostomy site is light pink without evidence of any necrosis. The patient has no output in the colostomy bag. Surgical 1 site was inspected. The patient has retention sutures. There is leak of serosanguineous/bloody effusion from the one surface. The patient has a large midabdominal incision extending above and below the umbilicus all the way down to his pelvis. He does have scrotal edema. He does have +1 pitting edema. Orogastric tube is also in place. Ultrasound OG is only 200 over the past 8 hours. Note that this patient has history of coronary artery disease with previous bypass surgery and had a recent stent placement in February 2022. He came into the emergency department for shortness of breath. He was found to be intimate with a hemoglobin of 6.9. Given a unit of packed RBC. His fecal occult blood was positive. He underwent EGD and colonoscopy. EGD showed moderately sized hiatal hernia and colonoscopy showed a circumferential sigmoid mass 28 cm from the anal verge and 5 mm rectal polyp. Based on that, the patient was taken to the operating room on 04/13/2022 and the patient underwent a low anterior resection on 04/13/2022. His course was comp licated by development of abdominal distention and worsening shortness of breath. This occurred on postoperative day #4. A CAT scan of the abdomen was done yesterday that showed evidence of a moderate to large amount of free intraperitoneal air consistent with anastomotic leak. There was also moderate bilateral pleural effusions. There was small amount of ascites around the liver. There was large hiatal hernia and by the edema. Chest x-ray from today is showing cardiomegaly, bilateral pleural effusion, is about the pulmonary infiltrates, thoracotomy wires, triple-lumen catheter in his left IJ and adequate positioning of the orogastric tube. There is evidence also of bilateral pleural effusions. On 04/19/2022, the patient remains intubated on a mechanical ventilator. The patient is postop day #2. THE patient had an anastomotic leak following bowel surgery in a patient presented to the intensive care following his surgery intubated on a mechanical ventilator. This morning, the patient is on propofol running at 45 mcg/kg/m. His calm and comfortable and symptoms mechanical v entilator. At the same time, is on assist control mode at a rate of 20, tidal volume of 450, FiO2 of 40% with a PEEP of 5. The blood gas from this morning shows a pH of 7.42 pCO2 of 42 and pO2 of 92. The chest x-ray from today is showing bilateral pleural effusion/consolidation is worse on the right. 82 is around 1.5 cm away from judah. Triple-lumen catheter was also placed in his left IJ. Hemodynamically, the patient is on IV fluids and currently is on bicarb infusion running at the rate of 75 mL an hour. His bicarb can be discontinued as the patient's serum bicarb is up to 25. Sodium is at 137 with a potassium level of 3.[address] Urine output is in order of 150 mL an hour. His overall fluid balance over the past 24 hours has been +3.5 L. In terms of hemodynamic support, the patient is on norepinephrine running at 0.1 mcg/kg/m. He also has vasopressin at physiologic dose at 0.03 units an hour. Cardiac rhythm is sinus. The patient was started on TPN for nutritional support which is running at the rate of 30 mL an hour. He is showing some signs of fluid overload with increase in scrotal edema. The colostomy stoma is viable. The tissue looks healthy. There is some liquidy material collecting in the bag. The abdomen is distended. Surgical wound is open and there is some limited serosanguineous material from the surgical one-sided. Orogastric tube in place. Output from the OG has been in the order of 10-20 mL over the past 24 hours. Patient is calm and comfortable. He is running episodes of fever. His T-max was 102. Blood culture is negative. Intra-abdominal cultures are still pending for now. The 2022, the patient's postop day #3 following his surgery for anastomotic leak, colectomy and diverticular colostomy. On today's evaluation, the patient remains on a mechanical ventilator. He is currently on propofol which is runn ing at 45 mcg/kg/m and his well rested. He remains on a mechanical ventilator. He is on assist control mode at the rate of 20, tidal volume of 450, FiO2 of 40% and PEEP of 5. The chest x-ray from today shows cardiomegaly, ET tube is in a good location, the patient has a triple-lumen cath in the right IJ. There is also evidence of bilateral pleural effusion which is essentially unchanged compared to yesterday and the findings of essentially stable for now. The blood gas shows a pH of 7.48 with a pCO2 of 39 and pO2 of 79. The patient is quite segments on mechanical ventilator. Hemodynamically, the patient is on KVO IV fluids. He did have significant fluid resuscitation. And IV fluids were cut down yesterday. He remains on pressors and norepinephrine is running at the rate of 0.03 mcg/kg/m. As such, his blood pressure has stabilized and he was also taken off the vasopressin. Cardiac rhythm is still sinus. Urine output is adequate for now. The patient was also started on TPN for nutritional support. On today's evaluation, the surgical wound is draining purulent foul-smelling material. The colostomy is viable and there is stool output in the colostomy bag. In terms of cultures, the wound needs to be cultured. The blood culture is negative. The abdominal wound cultures collected intraoperatively are still pending for now. The patient remains on IV Zosyn for now. Blood work shows a dull retrosternal 9 with a hemoglobin of 7.5 and a platelet count of 204. The sodium is at 135, potassium is to be replaced at 2.9 and the patient has a BUN of 22 with a creatinine of 1.36 and his acute kidney injury is also improving. Blood sugars at 202. Patient is on Levemir insulin 25 units twice a day and is also on sliding scale insulin coverage. Blood sugars under adequate control for now. Reevaluated today on 04/21/2022, patient is now postoperative day #4. Patient is status post surgery for an anastomotic leak, colectomy and diverticular colostomy. Remains in the ICU intubated and mechanically ventilated. He is on assist control rate of 20 tidal volume 450 FiO2 40% and PEEP of 5 ABG showed a pO2 of 97 pCO2 of 40 pH of 7.51 as no changes were made in the vent settings. Patient is still requiring norepinephrine at 0.02 mcg/kg/m propofol at 45 mcg/kg/m is also on TPN at 59 mL/h. Patient has good urine output, his ostomy seems to be functional. Chest x-ray continues to show small bilateral pleural effusions, endotracheal tube and catheters are in the proper position. WBC count is 12.2 hemoglobin is 7.7, basic metabolic profile is normal renal profile showed a BUN of 19 and creatinine of 1.34, steadily improving over the last 10 days. Patient is now sedated, and I plan to hold sedation on this patient today, address weaning parameters, and possibly give the patient weaning trial. Reevaluated today on 04/22/2022, patient remains in the ICU, he was extubated yesterday to BiPAP, and he remained overnight. Patient is on 12/6 and 40% FiO2 however after evaluating the patient today I switch him to nasal cannula. Patient is not in any distress. He is arousable, follows very simple instructions. And he is not in any distress his ostomy seems to be functioning he is still receiving TPN at 64 mL per hour and his IV fluid is at KVO. Leah nues to have good urine output WBC count is 12.4 hemoglobin 7.8 electrolytes are normal renal profile is showing improvement creatinine is down to 1.33. Chest x-ray continues to show small bilateral pleural effusions and mild pulmonary vascular congestion and cardiomegaly Reevaluated today on , remains in the ICU, patient tolerated extubation well for the last 2 days. Off BiPAP, on nasal cannula, O2 saturation is in the mid 90s on 2 L nasal cannula. Patient had low-grade temp last night, 99.6. He is hemodynamically stable, not in any distress, at times noted to be a bit lethargic and confused by the nurse, but on physical examination today, the patient seems to be quite appropriate. WBC count is 13.5 hemoglobin 7.6 basic metabolic profile is normal renal profile showed a creatinine of 1.23, steadily improving. Different cultures from the wound and from the abdomen were noted. Blood cultures have been negative. No chest x-ray was done today, but chest x- ray from yesterday showed small bilateral pleural effusions and mild pulmonary vascular congestion. Patient did receive Lasix yesterday. Objective - Vital Signs Vital signs: Vital Signs Temp 99.6 F 04/23/22 11:00 Pulse 86 04/23/22 11:00 Resp 16 04/23/22 11:00 BP 124/61 04/23/22 11:00 Pulse Ox 95 04/23/22 10:00 FiO2 40 04/22/22 08:02 Intake & Output 04/22/22 04/23/22 04/23/22 18:59 06:59 18:59 Intake Total 2549 2583 272 Output Total 1920 960 335 Balance 629 1623 -63 Weight 95.5 kg Intake: IV 562 1738 272 0.9 240 260 60 DAPTOmycin 500 mg In 50 Sodium Chloride 0.9% 50 ml @ 100 mls/hr IVPB Q24H [facility] Rx#:[id number] Fluconazole in NaCl,Iso- 100 100 Osm 200 mg In Saline 1 100ml.bag @ 100 mls/hr IVPB DAILY [facility] Rx#: [id number] Magnesium Sulfate-D5w Pmx 100 1 gm In Dextrose/Water 1 100ml.bag @ 100 mls/hr IVPB Q1H [facility] Rx#: [id number] Piperacillin-Tazobactam 3 100 1300 100 .375 gm In Sodium Chloride 0.9% 100 ml @ 25 mls/hr IVPB Q8H [facility] Rx#: [id number] Pressure Bags 72 78 12 Intake, IV Titration 1807 845 Amount Calcium Gluconate 1 gm 715 845 Potassium Chloride 20 meq Magnesium Sulfate gm 1 gm In Amino Acid 4.25%- D10w+Lytes*E* 1,000 ml @ 65 mls/hr IV .BY DURATION [facility] Rx#:[id number] Mvi, Adult No.4 with Vit 1092 K 10 ml Trace (Conc-1Ml/ Dose) 1 ml Calcium Gluconate 1 gm Potassium Chloride 20 meq Magnesium Sulfate gm 1 gm In Amino Acid 4.25%-D10w+Lytes*E* 1,000 ml @ 65 mls/hr IV .BY DURATION [facility] Rx#: [id number] Oral 180 Output: Urine 1920 860 335 Stool 100 Other: Voiding Method Indwelling Catheter Indwelling Catheter ABP, PAP, CO, CI - Last Documented Arterial Blood Pressure 126/50 - Exam Physical Exam: Revealed a 72-year-old white male in no distress, on 2 L nasal cannula with O2 saturation 95% Head: Atraumatic, normocephalic HEENT:[Neck is supple.] [No neck masses.] [No thyromegaly.] [No JVD.]nonicteric, no neck masses Chest: [Symmetrical chest expansion, diminished breath sounds at the bases with minimal crackles. Cardiac Exam: [Normal S1 and S2, no S3 gallop, no murmur.] Abdomen:colostomy in the left upper quadrant. The colon tissue is pink and viable. His stool output in the colostomy bag. The patient has a open midabdominal incision with serosanguineous/bloody fluid seeping from the wound surface. No direct tenderness. No rebound tenderness. Positive bowel sounds. Patient has scrotal edema. Extremities: [No clubbing, 1+ bipedal edema, no cyanosis.]: Good pulses bilaterally. Neurological Exam: Alert and oriented 3 no focal deficit. Psychiatric: Normal mood, affect and normal mental status examination. - Labs CBC & Chem 7: 04/23/22 05:00 04/23/22 05:00 Labs: Abnormal Lab Results - Last 24 Hours (Table) 04/22/22 04/22/22 04/22/22 Range/Units 12:20 18:23 23:29 WBC (3.8-10.6) k/uL RBC (4.30-5.90) m/uL Hgb (13.0-17.5) gm/dL Hct (39.0-53.0) % MCHC (31.0-37.0) g/dL RDW (11.5-15.5) % Sodium (137-145) mmol/L BUN (9-20) mg/dL Glucose (74-99) mg/dL POC Glucose (mg/dL) 188 H 144 H 154 H (70-110) mg/dL Calcium (8.4-10.2) mg/dL Alkaline Phosphatase (38-126) U/L Total Protein (6.3-8.2) g/dL Albumin (3.5-5.0) g/dL 04/23/22 04/23/22 04/23/22 Range/Units 05:00 05:00 06:07 WBC 13.5 H (3.8-10.6) k/uL RBC 3.04 L (4.30-5.90) m/uL Hgb 7.6 L (13.0-17.5) gm/dL Hct 25.1 L (39.0-53.0) % MCHC 30.3 L (31.0-37.0) g/dL RDW 19.0 H (11.5-15.5) % Sodium 134 L (137-145) mmol/L BUN 23 H (9-20) mg/dL Glucose 113 H (74-99) mg/dL POC Glucose (mg/dL) 124 H (70-110) mg/dL Calcium 7.5 L (8.4-10.2) mg/dL Alkaline Phosphatase 139 H (38-126) U/L Total Protein 4.9 L (6.3-8.2) g/dL Albumin 2.3 L (3.5-5.0) g/dL 04/23/22 04/23/22 Range/Units 10:07 11:53 WBC (3.8-10.6) k/uL RBC (4.30-5.90) m/uL Hgb (13.0-17.5) gm/dL Hct (39.0-53.0) % MCHC (31.0-37.0) g/dL RDW (11.5-15.5) % Sodium (137-145) mmol/L BUN (9-20) mg/dL Glucose (74-99) mg/dL POC Glucose (mg/dL) 155 H 187 H (70-110) mg/dL Calcium (8.4-10.2) mg/dL Alkaline Phosphatase (38-126) U/L Total Protein (6.3-8.2) g/dL Albumin (3.5-5.0) g/dL Microbiology - Last 24 Hours (Table) 04/20/22 10:05 Gram Stain - Final Abdomen Wound Culture - Preliminary Enterobacter cloacae Enterobacter cloacae#2 Escherichia coli Group D Enterococcus 04/17/22 19:00 Blood Culture - Preliminary Blood No Growth after 120 hours 04/20/22 15:40 Blood Culture - Preliminary Blood No Growth after 48 hours Assessment and Plan Assessment: Impression: Acute hypoxic respiratory failure secondary to abdominal sepsis and septic shock, patient was extubated uneventfully on 04/21/2022. Acute surgical abdomen secondary to anastomotic leak following a sigmoid resection and low AP resection from initial surgery performed on 04/13/2022 patient is now postoperative day #4, status post left colectomy and diverting colostomy Septic shock secondary to above secondary to abdominal sepsis, remains on antibiotics. 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 Valvular heart disease with moderate degree of mitral regurgitation and severe tricuspid regurgitation with pulmonary hypertension Underlying COPD Benign prostatic hypertrophy Recommendation: Continue to monitor in the ICU on nasal cannula Continue antibiotics Continue Diflucan Continue IV fluid at KVO Continue nutritional support/TPN Continue GI and DVT prophylaxis Continue insulin bronchodilators for his underlying COPD We will continue to follow. Time with Patient: Less than 30
--- NOTE | 2022-04-23 12:02 | P.PN ---
Subjective Progress Note Date: 04/23/22 CHIEF COMPLAINT: Colon mass HISTORY OF PRESENT ILLNESS: Patient had lower anterior resection for sigmoid colon mass on 04/13/2022. He developed anastomotic leak and is now postop day #6 status post exploratory laparotomy, washout of abdomen takedown of anastomosis and colostomy in the left upper quadrant for anastomotic leak secondary to ischemic colon. Patient reports pain is controlled. Denies any nausea or vomiting. Ostomy is functioning. Fevers have improved. 2 L Satting 96%. WBC 12.4-13.5 Hemoglobin 7.6 Platelets 359 Sodium 134 Potassium Is 4.1 Creatinine 1.23 Patient seen and examined with Dr. Carrera PHYSICAL EXAM: VITAL SIGNS: Reviewed. GENERAL: Well-developed in no acute distress. HEENT: No sclera icterus. Extraocular movements grossly intact. Moist buccal mucosa. Head is atraumatic, normocephalic. ABDOMEN: Soft. Incisional dressing intact. Colostomy with stool. Stoma beefy red NEUROLOGIC: Alert and oriented. Cranial nerves II through XII grossly intact. ASSESSMENT: 1. 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 Anastomotic leak secondary to ischemic colon status post exploratory laparotomy, abdominal washout and colostomy placement 3. Anemia due to GI bleed from the colon mass 4. History of coronary disease with stents placed in February 2022 with prior CABG 5. Intra-abdominal sepsis 6. Peritonitis PLAN: -Advance diet to full liquids -Do not recommend CT scan of abdomen at this time -Continue to monitor -Continue supportive care -Continue antibiotics -Continue TPN for nutrition support -Continue wet-to-dry dressing changes -GI prophylaxis Pepcid and DVT prophylaxis subcu heparin Physician [employer] note has been reviewed by physician. Signing provider agrees with the documented findings, assessment, and plan of care. Objective - Vital Signs Vital signs: Vital Signs Temp 98.2 F 04/23/22 08:00 Pulse 105 H 04/23/22 09:00 Resp 20 04/23/22 09:00 BP 130/51 04/21/22 20:00 Pulse Ox 96 04/23/22 09:00 FiO2 40 04/22/22 08:02 Intake & Output 04/22/22 04/23/22 04/23/22 18:59 06:59 18:59 Intake Total 2549 2583 Output Total 1920 960 Balance 629 1623 Weight 95.5 kg Intake: IV 562 1738 0.9 240 260 DAPTOmycin 500 mg In 50 Sodium Chloride 0.9% 50 ml @ 100 mls/hr IVPB Q24H [facility] Rx#:[id number] Fluconazole in NaCl,Iso- 100 Osm 200 mg In Saline 1 100ml.bag @ 100 mls/hr IVPB DAILY [facility] Rx#: [id number] Magnesium Sulfate-D5w Pmx 100 1 gm In Dextrose/Water 1 100ml.bag @ 100 mls/hr IVPB Q1H [facility] Rx#: [id number] Piperacillin-Tazobactam 3 100 1300 .375 gm In Sodium Chloride 0.9% 100 ml @ 25 mls/hr IVPB Q8H [facility] Rx#: [id number] Pressure Bags 72 78 Intake, IV Titration 1807 845 Amount Calcium Gluconate 1 gm 715 845 Potassium Chloride 20 meq Magnesium Sulfate gm 1 gm In Amino Acid 4.25%- D10w+Lytes*E* 1,000 ml @ 65 mls/hr IV .BY [facility] Rx#:[id number] Mvi, Adult No.4 with Vit 1092 K 10 ml Trace (Conc-1Ml/ Dose) 1 ml Calcium Gluconate 1 gm Potassium Chloride 20 meq Magnesium Sulfate gm 1 gm In Amino Acid 4.25%-D10w+Lytes*E* 1,000 ml @ 65 mls/hr IV .BY [facility] Rx#: [id number] Oral 180 Output: Urine 1920 860 Stool 100 Other: Voiding Method Indwelling Catheter Indwelling Catheter ABP, PAP, CO, CI - Last Documented Arterial Blood Pressure 126/50 - Labs CBC & Chem 7: 04/23/22 05:00 04/23/22 05:00 Labs: Abnormal Lab Results - Last 24 Hours (Table) 04/22/22 04/22/22 04/22/22 Range/Units 12:20 18:23 23:29 WBC (3.8-10.6) k/uL RBC (4.30-5.90) m/uL Hgb (13.0-17.5) gm/dL Hct (39.0-53.0) % MCHC (31.0-37.0) g/dL RDW (11.5-15.5) % Sodium (137-145) mmol/L BUN (9-20) mg/dL Glucose (74-99) mg/dL POC Glucose (mg/dL) 188 H 144 H 154 H (70-110) mg/dL Calcium (8.4-10.2) mg/dL Alkaline Phosphatase (38-126) U/L Total Protein (6.3-8.2) g/dL Albumin (3.5-5.0) g/dL 04/23/22 04/23/22 04/23/22 Range/Units 05:00 05:00 06:07 WBC 13.5 H (3.8-10.6) k/uL RBC 3.04 L (4.30-5.90) m/uL Hgb 7.6 L (13.0-17.5) gm/dL Hct 25.1 L (39.0-53.0) % MCHC 30.3 L (31.0-37.0) g/dL RDW 19.0 H (11.5-15.5) % Sodium 134 L (137-145) mmol/L BUN 23 H (9-20) mg/dL Glucose 113 H (74-99) mg/dL POC Glucose (mg/dL) 124 H (70-110) mg/dL Calcium 7.5 L (8.4-10.2) mg/dL Alkaline Phosphatase 139 H (38-126) U/L Total Protein 4.9 L (6.3-8.2) g/dL Albumin 2.3 L (3.5-5.0) g/dL Microbiology - Last 24 Hours (Table) 04/17/22 19:00 Blood Culture - Preliminary Blood No Growth after 120 hours 04/20/22 15:40 Blood Culture - Preliminary Blood No Growth after 48 hours 04/20/22 10:05 Gram Stain - Final Abdomen Wound Culture - Preliminary Gram Neg Bacilli Gram Neg Bacilli#2 Gram Neg Bacilli#3 Group D Enterococcus
[2022-04-23] MEDS: DAPTOmycin 500 MG in SODIUM CHLORIDE 0.9% 50 ML IVPB SCH (12:26)
[2022-04-23] MEDS: MEROPENEM 1 GM in SODIUM CHLORIDE 0.9% 100 ML IVPB SCH (13:19)
--- NOTE | 2022-04-23 13:50 | P.PN ---
Subjective Progress Note Date: 04/23/22 Patient is a 72-year-old male with a known history of coronary artery disease status post CABG and recent stent placement in February 2022 initially presented to ER with complaints of shortness of breath and exertional dyspnea. Patient initially thought it was due to his heart condition and went to ER. Patient was found to have a hemoglobin of 6.9 and received 1 unit of PRBC. Patient was tested positive for FOBT. Patient is also taking aspirin and Plavix from recent stent placement. Patient also states that he has been taking Motrin for the last couple of weeks for his neuropathy pain in his feet. Denies any complaints of hematemesis dark-colored stools. Patient was transferred to [facility] for GI evaluation. On admission WBC 4.4 hemoglobin 7.5 MCV 79.7 and platelets 243 Sodium 143 potassium 4.2 chloride 101 bicarb is 19 BUN 25 and creatinine 1.72 Calcium 7.4 04/11/2022 Patient is currently resting in bed. Awake alert and oriented x3. No complaints of chest pain or shortness of breath. Otherwise underwent EGD and colonoscopy today. EGD showed moderate size hiatal hernia but no evidence of esophagitis or peptic ulcer disease. No evidence of GI bleed. Colonoscopy showed a) Near circumferential sigmoid colon mass at 28 cm from the anal verge status post multiple biopsies followed by tattooing with Aiyana ink b) 5 mm rectal polyp status post polypectomy General surgery was consulted and follow-up biopsy report.. Hemoglobin is stable at 8.6 otherwise. Denies any complaints of nausea or vomiting. Patient was started on clear liquid diet and follow H&H. 04/12/2022 Patient is currently resting in the bed. Awake alert and oriented x3. No complaints of chest pain or shortness of breath. No nausea vomiting abdominal pain or diarrhea. No cough or sputum production. Patient was seen by general surgery and is planning for or tomorrow. Antiplatelets on hold. Laboratory data reviewed. Patient is being current on iron supplementation Protonix IV push daily. 04/13/2022 Patient is currently lying in bed. Awake alert and oriented. Pain is fairly controlled. Status post low anterior resection of the sigmoid colon. Postoperative day 0 No fever no chills. Currently on room air. No nausea vomiting or diarrhea. Laboratory data showed WBC 5.3 hemoglobin 7.7 platelets 216 sodium 140 potassium 3.8 chloride 106 bicarb is 22 BUN 16 and creatinine 1.69. Calcium 7.5. General surgery and cardiology is on board. 04/14/2022 Patient is evaluated today sitting up in chair currently postoperative day #1 low anterior resection for sigmoid colon mass with pathology currently pending at this time. Patient is currently on clear liquid diet. Not passing gas yet and no BM. Reports controlled incisional abdominal pain. Wound vac is in place and intact. Patient is currently on D5 0.45 normal saline with potassium. Creatinine is up to 2.0 today. 04/15/2022 Patient is evaluated today on stepdown unit currently postoperative day #2 sigmoid colon resection. Aspirin and plavix remain on hold. Cardiology following closely. Blood pressure has improved to 139/71 today. Indwelling catheter removed yesterday afternoon, patient has issues with urinary retention overnight and for this reason normal saline was placed on hold. Patient has been unable to void and urinary strait cath was unable to produce urine. Bladder scan today showing 70 mls in urinary bladder. Creatinine is up to 2.86 today. Urology has been consulted for placement of urinary catheter and IV fluids have been resumed at an increased rate. Continues on clear liquid diet. Reports abdominal pain is controlled today. Blood glucose has been increased and insulin has been added. Remains afebrile, heart rate 72, blood pressure 120/68, 92% room air. 04/16/2022 Patient is evaluated on medical floor. he is postoperative day #3 sigmoid colon resection. Patient had urinary catheter placed by urology for urinary retention. Overnight has had 225 mLs of urine output, he is continued on normal saline at 125 mls/hr. Creatinine today has improved 2.29. Sodium up to 134. Renal ultrasound has been ordered and will repeat labs in AM. Patient had a bowel movement today he reports. He has some abdominal distention, states he is not passing much gas and feels bloated. Hemodynamically stable. 04/17/2022 Patient is evaluated on medical floor. Patients abdomen appears more distended with increased shortness of breath. He is postoperative day #4 low anterior resection of sigmoid colon secondary to mass. 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 He had chest xray completed with report called by radiology with large amount of free intraperitoneal air and bilateral infiltrate and small effusion. Correlate for mild venous congestion. Abdominal pelvis CT was ordered and results showing moderate to large amount of free intraperitoneal air may be related to patients interval surgery and colonic resection. Moderate bilateral pleural effusions, small amount of ascites around the liver, body wall edema, large hiatal hernia. Patient will undergo exploratory laporatomy today. Patient was noted to have purulent drainage from wound vac and also from midline incision which was cultured and patient was started on antibiotics. Blood cultures will be taken as well. Patient has been hydrated overnight with normal saline and creatinine has improved to 2.0, however his urine output remains marginal with 600 mls in the last 24 hours from indwelling urinary catheter. Renal ultrasound showing possible mild thinning of left renal cortex correlate for chronic medical renal disease with no hydronephrosis or nephrolisthiasis. Labs today showing white count 7.98, hgb 7.1, platelets 97, sodium 138, potassium 4.7, BUN 36.3, creatinine 2.0. Urinalysis negative. Patient is afebrile, heart rate 78, blood pressure 142/63, 100% on 3L nasal cannula. 04/18/2022 Patient is evaluated in the intensive care unit currently intubated on mechanical ventilator and sedated. Patient was found to have free air in the abdomen and was taken for exploratory laporatomy yesterday and was found to have ischemic bowel. Patient had take down of the anastamosis and colectomy, washout of abdomen and colostomy left upper quadrant. Patient was taken from the OR and admitted to the intensive care unit. Patient is evaluated today postoperative day #1, and also postoperative day #5 low anterior resection. Patient has OG tube in place with 200 mls of gastric output total which brown in color with black noted in the collection cannister. He did receive 2 units of PRBCs and hemoglobin is stable today at 8.4. He received 1 unit of PRBC on admission as well. He continues on aspirin 81 mg daily and plavix remains on hold. Cardiology following. Patient had ABGs done today showing pH of 7.38, pCO2 of 34, pO2 of 120 HCO3 of 20. He will continue to remain on mechanical ventilator overnight. Blood pressure remains on the lower side and patient is currently on lovephed running at 0.28 mcg/kg/min. Nephrology is following and patient continues on bicarbonate gtt running at 75 mls/hr. Chest xray today reports persistent areas of consolidation pleural effusion correlate for CHF, superimposed pneumonia not excluded. Blood culture and wound cultures are pending and patient has been started on IV zosyn. Patient will be started on TPN today. He is sedated with propofol. Surgical site is examined with retention sutures in place covered with ABD dressing. Additionally patient has LUQ colostomy in place with stoma showing no signs of necrosis and there is small amt of brown liquid stool in ostomy. Labs today showing white count of 7.5, hgb 8.4, sodium 134, potassium 3.7, BUN 32, creatinine 1.66, blood glucose 242, calcium 6.4, phosphorous 3.3, magnesium 1.8, albumin 2.2. Patient has temp of 100.7 today, heart rate 82, blood pressure 99/43, and oxygen saturation of 98% on mechanical ventilator with 40% FiO2. 04/19/2022 Patient is evaluated in the intensive care unit. He is currently intubated on mechanical ventilator with FiO2 of 40% He is receiving TPN. He is sedated with propofol. He is requiring levophed and vasopressin has been added. Blood pressures are improved into the 120s systolic. Creatinine has also improved to 1.56. Blood culture and wound culture are pending and IV zosyn is continued. Chest xray today showing cardiomegaly with pulmonary vascular congestion and bilateral pleural effusions. IV bicarb has been discontinued. Scrotal edema is increased and patient has generalized peripheral edema as well. There is NG tube in place with minimal output and continues to be black/dark brown in color. Patient has watery output from ostomy. Retention sutures are removed and abdomen is open and has some sanguineous drainage. He appears comfortable. Urine output has increased. IV tylenol in place for fever. 04/20/2022 Patient continues to be monitored closely in intensive care unit. He is currently intubated and sedated on the mechanical ventilator with FiO2 of 40%. Blood gases are done today with pH of 7.48, pO2 79. Patient is currently running temp intermittently. He continues on levophed and vasopressin is on hold. Patient is currently sedated with propofol. Abdomen culture from 04/17 showing multiple gram negative bacilli colonies and also group D enterococcus. Patient remains on IV zosyn and has also been started on IV diflucan and also IV vancomycin. Chest xray today showing stable support tubes, similiar cardiomegaly, suspected similar pleural effusions. Labs today showing white count of 9.0, hgb of 7.5. Creatinine continues to improve currently 1.36, potassium 2.9. Blood glucose up in the 200s and insulin continues to be increased. Patient continues on TPN. Abdominal wound is open and packed with gauze with foul odor noted. Bowel sounds are increased and patient is making stool from ostomy today light brown and has some formed stool. 04/21/2022 Patient is evaluated in intensive care unit during sedation holiday. He has spontaneous eye opening and is following commands. Remains lethargic. He has OG tube in place. He continues on mechanical ventilator with FiO2 of 40%. ABGs are done patient will be extubated today. He has stool from ostomy with increased bowel sounds. Repeat abdominal culture is pending. Anaerobic culture is showing 2 gram negative bacilli species. Patient continues on IV daptomycin, IV fluc onazole, and IV zosyn. Infectious disease on and following abdominal cultures. Patient is off pressor support at this time and blood pressures are in the 140s systolic. He has heart rate of 110 and atenolol can be resumed. Patient has T- Max of 100.4 today. Chest xray showing persistent bilateral pleural effusions. 04/22/2022 Patient continues to be monitored closely in the intensive care unit and was successfully extubated yesterday. He has diffuse generalized weakness. He is alert x 2 and agitated today requesting to get up and out of bed. He has physical therapy on to work with him today. He has NG tube removed. Continues on nasal cannula. Abdominal culture repeat is again finalized as gram negative bacilli x 3 and Group D enterococcus and polymicrobial species. Discussed with [facility] and specimen will continue to be work up for microsensitivities. This was discussed with ID who is recommending follow up CT scan. Discussed recommendations with surgeon recommending to hold off on CT for now and monitor clinically. Patient continues on IV daptomcyin and IV zosyn. He is also on IV fluconazole. He continues to make stool from ostomy and bowel sounds are active, his dressing is intact with some drainage noted. He had chest xray today showing small bilateral pleural effusions with mild pulmonary vascular congestion and cardiomegaly. Patient continues with significant peripheral edema and scrotal edema. Patient did receive a dose of IV lasix 20 mg today. He is off vasopressor support. His blood pressure remains stable in the 120s systolic and heart rate is elevated in the low 100s. He has been resumed on low dose betablocker. Patient has diuresed over 5L in the last 24 hours. White count of 12.4 today, hemoglobin stable at 7.8, sodium of 136, BUN 20, creatinine 1.33, blood glucose of 188, calcium 7.4. He continues with fever T max of 100.9 in the last 24 hours. 04/23/2022 Patient continues to be monitored closely in intensive care unit. He is awake and alert today, sitting up in bed at about 90*. He is postoperative day #10 low anterior resection and postoperative day #6 abdominal washout take down of anastamosis, left colectomy and LUQ colostomy formation. He has stool from the ostomy. His dressing is intact to midline incision and he has bowel sounds. He as resumed on beta taylor yesterday and heart rate has been in the 80s to 90s sinus rhythm. Blood pressure 124/61 today. His white count continues to elevated currently 13.5 today. His fever has started to improve in the last 24 hours T Max of 99.6. Abdominal wound cultures show enterobacter cloacae with drug resistance e. coli and group D enterococcus, ID following cultures and antibiotics have been adjusted to IV daptomycin and IV meropenem. Final microsensitivities are pending. Patient remains on TPN and continues on levemir 30 units BID with sliding scale q6h and his blood glucose has improved to the 180s. He is using incentive spirometer. He is working with physical therapy. Renal function has improved. Review of Systems Constitutional: Reports fatigue Cardio vascular: Denied any chest pain, palpitations Gastrointestinal: Reports abdominal pain, no nausea, vomiting reported. Pulmonary: Denies shortness of breath and denies cough. Neurologic Denied any new focal deficits All inpatient medications were reviewed and appropriate changes in these medications as dictated in the interval history and assessment and plan. PHYSICAL EXAMINATION: HEENT: Normocephalic. Neck is supple. Pupils reactive. Nostrils clear. Oral cavity is moist. Neck reveals no JVD, carotid bruits, or thyromegaly. CHEST EXAMINATION: Trachea is central. Symmetrical expansion. Lung escalante clear to auscultation and percussion. CARDIAC: Normal S1, S2 with no gallops. No murmurs ABDOMEN: Bowel sounds are increased today, LUQ ostomy in place with stool output. Gauze packing to open abdominal wound. Extremities: No clubbing or cyanosis Neurologically: Diffuse generalized weakness, no focal weakness. Awake and alert x 3. Skin: No rash or skin lesions. Lower extremity edema and significant scrotal ed silvia. Peripheral edema. Musculoskeletal: No joint swelling or deformity. Assessment and Plan Assessment Sigmoid colon mass status post low anterior resection postoperative day #10 with 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 Anastomotic leak and ischemic bowel following low anterior resection patient is currently postoperative day #6 abdominal washout, takedown of anastamosis with left colectomy and colostomy formation LUQ. Shock likely septic shock secondary to above and patient is currently off vasopressor support and blood pressure is stable Acute hypoxic respiratory failure requiring intubation, patient has been extubated on 04/21/2022 and continues on 2L of oxygen via nasal cannula. Acute blood loss anemia from GI bleed secondary to sigmoid colon mass. Patient has received 3 units of blood this admission. Hemoglobin stable at 7.6 Acute kidney injury prerenal with acute tubular necrosis, improved Postoperative urinary retention with indwelling catheter placed Microcytic anemia with iron deficiency. Hyperglycemia Coronary artery disease with history of stent placement in February 2022 Coronary artery disease history of CABG GI and DVT prophylaxis with SCDs Full Code Plan: Continue on IV antibiotics and local wound care, ID on board and following cultures Monitor H&H closely. Transfusion of hemoglobin less than 7. Plavix remains on hold recommend to resume when cleared by surgery. Continue on TPN and blood glucose monitoring Multiple consultations following including nephrology, urology, cardiology, g eneral surgery, pulmonary metal base blocker Repeat labs in AM Physical therapy/Occupational therapy in progress patient will require subacute rehab on discharge. Recommend to encourage IS and continue to use 10 x an hour while awake Discussed plan of care and updated family at the bedside in intensive care unit today. The impression and plan of care has been dictated by Carmita Johnson, Nurse Practitioner as directed. Dr. Akbar MD I have performed a history and physical examination and medical decision making of this patient, discussed the same with the dictator, and agree with the dictators assessment and plan as written, documented as a scribe. Based on total visit time, I have performed more than 50% of this visit. Objective - Vital Signs Vital signs: Vital Signs Temp 98.2 F 04/23/22 04:00 Pulse 99 04/23/22 08:05 Resp 12 04/23/22 08:05 BP 130/51 04/21/22 20:00 Pulse Ox 97 04/23/22 07:00 FiO2 40 04/22/22 08:02 Intake & Output 04/22/22 04/23/22 04/23/22 18:59 06:59 18:59 Intake Total 2549 2583 Output Total 1920 960 Balance 629 1623 Weight 95.5 kg Intake: IV 562 1738 0.9 240 260 DAPTOmycin 500 mg In 50 Sodium Chloride 0.9% 50 ml @ 100 mls/hr IVPB Q24H [facility] Rx#:[id number] Fluconazole in NaCl,Iso- 100 Osm 200 mg In Saline 1 100ml.bag @ 100 mls/hr IVPB DAILY [facility] Rx#: [id number] Magnesium Sulfate-D5w Pmx 100 1 gm In Dextrose/Water 1 100ml.bag @ 100 mls/hr IVPB Q1H [facility] Rx#: [id number] Piperacillin-Tazobactam 3 100 1300 .375 gm In Sodium Chloride 0.9% 100 ml @ 25 mls/hr IVPB Q8H [facility] Rx#: [id number] Pressure Bags 72 78 Intake, IV Titration 1807 845 Amount Calcium Gluconate 1 gm 715 845 Potassium Chloride 20 meq Magnesium Sulfate gm 1 gm In Amino Acid 4.25%- D10w+Lytes*E* 1,000 ml @ 65 mls/hr IV .BY DURATION [facility] Rx#:[id number] Mvi, Adult No.4 with Vit 1092 K 10 ml Trace (Conc-1Ml/ Dose) 1 ml Calcium Gluconate 1 gm Potassium Chloride 20 meq Magnesium Sulfate gm 1 gm In Amino Acid 4.25%-D10w+Lytes*E* 1,000 ml @ 65 mls/hr IV .BY DURATION [facility] Rx#: [id number] Oral 180 Output: Urine 1920 860 Stool 100 Other: Voiding Method Indwelling Catheter Indwelling Catheter ABP, PAP, CO, CI - Last Documented Arterial Blood Pressure 131/53 - Labs CBC & Chem 7: 04/23/22 05:00 04/23/22 05:00 Labs: Abnormal Lab Results - Last 24 Hours (Table) 04/22/22 04/22/22 04/22/22 Range/Units 12:20 18:23 23:29 WBC (3.8-10.6) k/uL RBC (4.30-5.90) m/uL Hgb (13.0-17.5) gm/dL Hct (39.0-53.0) % MCHC (31.0-37.0) g/dL RDW (11.5-15.5) % Sodium (137-145) mmol/L BUN (9-20) mg/dL Glucose (74-99) mg/dL POC Glucose (mg/dL) 188 H 144 H 154 H (70-110) mg/dL Calcium (8.4-10.2) mg/dL Alkaline Phosphatase (38-126) U/L Total Protein (6.3-8.2) g/dL Albumin (3.5-5.0) g/dL 04/23/22 04/23/22 04/23/22 Range/Units 05:00 05:00 06:07 WBC 13.5 H (3.8-10.6) k/uL RBC 3.04 L (4.30-5.90) m/uL Hgb 7.6 L (13.0-17.5) gm/dL Hct 25.1 L (39.0-53.0) % MCHC 30.3 L (31.0-37.0) g/dL RDW 19.0 H (11.5-15.5) % Sodium 134 L (137-145) mmol/L BUN 23 H (9-20) mg/dL Glucose 113 H (74-99) mg/dL POC Glucose (mg/dL) 124 H (70-110) mg/dL Calcium 7.5 L (8.4-10.2) mg/dL Alkaline Phosphatase 139 H (38-126) U/L Total Protein 4.9 L (6.3-8.2) g/dL Albumin 2.3 L (3.5-5.0) g/dL Microbiology - Last 24 Hours (Table) 04/17/22 19:00 Blood Culture - Preliminary Blood No Growth after 120 hours 04/20/22 15:40 Blood Culture - Preliminary Blood No Growth after 48 hours 04/20/22 10:05 Gram Stain - Final Abdomen Wound Culture - Preliminary Gram Neg Bacilli Gram Neg Bacilli#2 Gram Neg Bacilli#3 Group D Enterococcus Assessment and Plan Time with Patient: Greater than 30
--- NOTE | 2022-04-23 15:26 | P.PN ---
Subjective Patient is seen for follow-up for acute kidney injury, mostly ATN currently improving. Status post low anterior resection on 04/13/2022 for sigmoid mass and currently with a colostomy. Patient has been extubated He is doing well Status post IV Lasix yesterday with good response. Blood pressure remains stable Serum creatinine decreased to 1.2 grams per deciliter. Maintained on TPN Objective - Vital Signs Vital signs: Vital Signs Temp 98.8 F 04/23/22 12:00 Pulse 86 04/23/22 14:00 Resp 15 04/23/22 14:00 BP 93/52 04/23/22 14:00 Pulse Ox 97 04/23/22 14:00 FiO2 40 04/22/22 08:02 Intake & Output 04/22/22 04/23/22 04/23/22 18:59 06:59 18:59 Intake Total 2549 2583 809 Output Total 1969 238 2093 Balance 629 1623 -256 Weight 95.5 kg 95.5 kg Intake: IV 562 1738 452 0.9 240 260 90 DAPTOmycin 500 mg In 50 50 Sodium Chloride 0.9% 50 ml @ 100 mls/hr IVPB Q24H [facility] Rx#:[id number] Fluconazole in NaCl,Iso- 100 100 Osm 200 mg In Saline 1 100ml.bag @ 100 mls/hr IVPB DAILY [facility] Rx#: [id number] Magnesium Sulfate-D5w Pmx 100 1 gm In Dextrose/Water 1 100ml.bag @ 100 mls/hr IVPB Q1H [facility] Rx#: [id number] Meropenem 1 gm In Sodium 100 Chloride 0.9% 100 ml @ 33 .3 mls/hr IVPB Q8HR@0000, 0400,1200 [facility] Rx#: [id number] Piperacillin-Tazobactam 3 100 1300 100 .375 gm In Sodium Chloride 0.9% 100 ml @ 25 mls/hr IVPB Q8H [facility] Rx#: [id number] Pressure Bags 72 78 12 Intake, IV Titration 1807 845 Amount Calcium Gluconate 1 gm 715 845 Potassium Chloride 20 meq Magnesium Sulfate gm 1 gm In Amino Acid 4.25%- D10w+Lytes*E* 1,000 ml @ 65 mls/hr IV .BY DURATION [facility] Rx#:[id number] Mvi, Adult No.4 with Vit 1092 K 10 ml Trace (Conc-1Ml/ Dose) 1 ml Calcium Gluconate 1 gm Potassium Chloride 20 meq Magnesium Sulfate gm 1 gm In Amino Acid 4.25%-D10w+Lytes*E* 1,000 ml @ 65 mls/hr IV .BY DURATION [facility] Rx#: [id number] Oral 180 357 Output: Urine 1920 860 465 Stool 100 600 Other: Voiding Method Indwelling Catheter Indwelling Catheter Indwelling Catheter ABP, PAP, CO, CI - Last Documented Arterial Blood Pressure 126/50 - Exam Patient is awake and following commands, comfortable, no acute distress Examination of the heart S1 and S2 Examination the lungs bilateral breath sounds are heard Abdomen is soft Examination lower extremities shows edema 2-3+ bilaterally with significant scrotal edema [employer] exam grossly intact - Labs CBC & Chem 7: 04/23/22 05:00 04/23/22 05:00 Labs: Abnormal Lab Results - Last 24 Hours (Table) 04/17/22 04/22/22 04/22/22 Range/Units 15:17 18:23 23:29 WBC (3.8-10.6) k/uL RBC (4.30-5.90) m/uL Hgb (13.0-17.5) gm/dL Hct (39.0-53.0) % MCHC (31.0-37.0) g/dL RDW (11.5-15.5) % Sodium (137-145) mmol/L BUN (9-20) mg/dL Glucose (74-99) mg/dL POC Glucose (mg/dL) 144 H 154 H (70-110) mg/dL Calcium (8.4-10.2) mg/dL Alkaline Phosphatase (38-126) U/L Total Protein (6.3-8.2) g/dL Albumin (3.5-5.0) g/dL Crossmatch See Detail 04/23/22 04/23/22 04/23/22 Range/Units 05:00 05:00 06:07 WBC 13.5 H (3.8-10.6) k/uL RBC 3.04 L (4.30-5.90) m/uL Hgb 7.6 L (13.0-17.5) gm/dL Hct 25.1 L (39.0-53.0) % MCHC 30.3 L (31.0-37.0) g/dL RDW 19.0 H (11.5-15.5) % Sodium 134 L (137-145) mmol/L BUN 23 H (9-20) mg/dL Glucose 113 H (74-99) mg/dL POC Glucose (mg/dL) 124 H (70-110) mg/dL Calcium 7.5 L (8.4-10.2) mg/dL Alkaline Phosphatase 139 H (38-126) U/L Total Protein 4.9 L (6.3-8.2) g/dL Albumin 2.3 L (3.5-5.0) g/dL Crossmatch 04/23/22 04/23/22 Range/Units 10:07 11:53 WBC (3.8-10.6) k/uL RBC (4.30-5.90) m/uL Hgb (13.0-17.5) gm/dL Hct (39.0-53.0) % MCHC (31.0-37.0) g/dL RDW (11.5-15.5) % Sodium (137-145) mmol/L BUN (9-20) mg/dL Glucose (74-99) mg/dL POC Glucose (mg/dL) 155 H 187 H (70-110) mg/dL Calcium (8.4-10.2) mg/dL Alkaline Phosphatase (38-126) U/L Total Protein (6.3-8.2) g/dL Albumin (3.5-5.0) g/dL Crossmatch Microbiology - Last 24 Hours (Table) 04/20/22 10:05 Gram Stain - Final Abdomen Wound Culture - Preliminary Enterobacter cloacae Enterobacter cloacae#2 Escherichia coli Group D Enterococcus 04/17/22 19:00 Blood Culture - Preliminary Blood No Growth after 120 hours 04/20/22 15:40 Blood Culture - Preliminary Blood No Growth after 48 hours Assessment and Plan Assessment: 1. Acute kidney injury secondary to urinary retention and ATN. Creatinine peaked at 2.86 but improved to 1.2 this morning. Good urine output 2. Sigmoid mass and GI bleeding with severe anemia. Status post exploratory lap and colostomy 04/17/2022 3. Ventilator dependent respiratory failure on 40%, extubated 4. Volume overload with significant third spacing and scrotal edema 5. Status post coronary artery bypass graft remote 6. Mild hypokalemia secondary to diuresis 7. Metabolic acidosis resolved currently off bicarb drip. Plan: Continue to diurese pt. Repeat labs in a.m.
[2022-04-23] MEDS ORDERED: FUROSEMIDE 10 MG/ML 2 ML VIAL IV ONE (15:45)
[2022-04-23 16:12] LABS: Glucose,Whole Blood 130 mg/dL (70-110)
[2022-04-23] MEDS: FUROSEMIDE 10 MG/ML 2 ML VIAL IV SCH (20:41)
[2022-04-23 20:47] LABS: Glucose,Whole Blood 201 mg/dL (70-110)
[2022-04-24 00:07] LABS: Glucose,Whole Blood 169 mg/dL (70-110)
[2022-04-24] MEDS: HEPARIN SODIUM,PORCINE/PF 5,000 UNIT/0.5 ML SYRINGE SQ SCH ×4 (00:13→23:49)
[2022-04-24] MEDS: INSULIN ASPART (NovoLOG) 100 UNIT/ML VIAL SQ SCH ×5 (00:13→23:30)
[2022-04-24] MEDS: MEROPENEM 1 GM in SODIUM CHLORIDE 0.9% 100 ML IVPB SCH ×4 (00:14→23:46)
[2022-04-24] MEDS: HYDROcodone/APAP 5-325MG 1 EACH TAB PO PRN ×2 (00:31→08:35)
[2022-04-24] MEDS: IPRATROPIUM 0.5 MG/2.5 ML NEBU INHALATION SCH ×6 (00:34→21:11)
[2022-04-24] MEDS: ALBUTEROL NEBULIZED 2.5 MG/3 ML INHALATION SCH ×6 (00:34→21:11)
[2022-04-24] MEDS: HYDROmorphone 1 MG/ML 1 ML SYRINGE IVP PRN ×3 (04:11→12:16)
[2022-04-24 06:24] LABS: Glucose,Whole Blood 118 mg/dL (70-110)
[2022-04-24 06:44] LABS: Anisocytosis Slight; Basophils % (A) 0 %; Eosinophils # (A) 0.2 k/uL (0-0.7); Eosinophils % (A) 2 %; HCT 22.9 % (39.0-53.0); Hypochromasia Marked; Lymphocytes # (A) 0.9 k/uL (1.0-4.8); Lymphocytes % (A) 6 %; MCH 25.6 pg (25.0-35.0); MCHC 30.1 g/dL (31.0-37.0); MCV 84.8 fL (80.0-100.0); Mean Platelet Volume 8.9; Monocytes # (A) 0.7 k/uL (0-1.0); Monocytes % (A) 5 %; Neutrophils # (A) 11.7 k/uL (1.3-7.7); Neutrophils % (A) 85 %; Platelet Count 360 k/uL (150-450); Poikilocytosis Slight; RBC 2.69 m/uL (4.30-5.90); RDW 19.1 % (11.5-15.5); WBC 13.8 k/uL (3.8-10.6)
[2022-04-24 07:08] LABS: HGB 6.9 gm/dL (13.0-17.5)
[2022-04-24 07:27] LABS: Magnesium 2.1 mg/dL (1.6-2.3); Phosphorus 3.3 mg/dL (2.5-4.5)
[2022-04-24 07:30] LABS: Albumin 2.3 g/dL (3.5-5.0); Calcium 7.3 mg/dL (8.4-10.2); Potassium 4.6 mmol/L (3.5-5.1); Total Bilirubin 0.4 mg/dL (0.2-1.3); Total Protein 4.8 g/dL (6.3-8.2)
[2022-04-24 07:37] LABS: Glucose,Whole Blood 125 mg/dL (70-110)
[2022-04-24] MEDS: TAMSULOSIN 0.4 MG CAP.ER.24H PO SCH (08:34)
[2022-04-24] MEDS: ASPIRIN 81 MG PO SCH (08:35)
[2022-04-24] MEDS: ACETAMINOPHEN TAB 500 MG TAB PO PRN (08:35)
[2022-04-24] MEDS: ATORVASTATIN 40 MG TAB PO SCH (08:35)
[2022-04-24] MEDS: METOPROLOL TARTRATE 25 MG TAB PO SCH ×2 (08:35→22:15)
[2022-04-24] MEDS: FUROSEMIDE 10 MG/ML 2 ML VIAL IV SCH ×2 (08:50→22:15)
[2022-04-24] MEDS: ONDANSETRON 4 MG/2 ML VIAL IVP PRN (08:50)
[2022-04-24] MEDS: FAMOTIDINE 20 MG/2 ML VIAL IV SCH (08:50)
[2022-04-24] MEDS: FLUCONAZOLE IN NACL,ISO-OSM 200 MG in SALINE 1 100ML.BAG IVPB SCH (08:51)
[2022-04-24] MEDS: INSULIN DETEMIR (LEVEMIR) 100 UNIT/ML SYR SQ SCH ×2 (09:22→21:45)
[2022-04-24] MEDS: SIMETHICONE 40 MG/0.6 ML DROPS 2,000 MG/30 ML BOTTLE PO SCH ×4 (10:00→22:16)
[2022-04-24 11:07] LABS: Glucose,Whole Blood 191 mg/dL (70-110)
[2022-04-24] MEDS: DAPTOmycin 500 MG in SODIUM CHLORIDE 0.9% 50 ML IVPB SCH (12:19)
--- NOTE | 2022-04-24 12:53 | P.PN ---
Subjective Progress Note Date: 04/24/22 Principal diagnosis: Acute hypoxic respiratory failure secondary to acute abdominal sepsis, and septic shock, This is a 72-year-old male patient was brought into the intensive care unit after having his second surgery on 04/17/2022 which involved expiratory laparotomy, the patient had the surgery for an underlying anastomotic leak. The patient underwent a abdominal washout and takedown of anastomosis and colectomy and colostomy in the left upper quadrant. Estimated blood loss was around 25 mL. Postop, the patient was kept intubated on a mechanical ventilator. He was brought into the intensive care unit. He was quite hypotensive. His CVP was low on the eighth. He will received a total of saline boluses and following that he was started on pressors. Currently norepinephrine is running at 0.24 mcg/kg/m. The patient is intubated on a mechanical ventilator. Is currently on propofol at 45 mcg/kg/m and the patient is currently on assist control mode at a rate of 20, tidal volume of 450, FiO2 40% and a PEEP of 5. Note that overnight, the patient was found to be acidotic. He was given IV bicarb and following that he was started on a bicarbonate infusion which is still running at the rate of 150 mL an hour. Serum bicarb today is up to 20. Blood gas from today showed a pH of 7.38 with episodes of 34 and a pO2 of 120 and this was on FiO2 of 50%. WBC count is at 7.5 with a hemoglobin of 8.4 and a platelet count of 243. He did not fluid balance is positive for liters at least over the past 12 hours. The patient remains on IV Zosyn. He is adequately sedated. His colostomy site is light pink without evidence of any necrosis. The patient has no output in the colostomy bag. Surgical 1 site was inspected. The patient has retention sutures. There is leak of serosanguineous/bloody effusion from the one surface. The patient has a large midabdominal incision extending above and below the umbilicus all the way down to his pelvis. He does have scrotal edema. He does have +1 pitting edema. Orogastric tube is also in place. Ultrasound OG is only 200 over the past 8 hours. Note that this patient has history of coronary artery disease with previous bypass surgery and had a recent stent placement in February 2022. He came into the emergency department for shortness of breath. He was found to be intimate with a hemoglobin of 6.9. Given a unit of packed RBC. His fecal occult blood was positive. He underwent EGD and colonoscopy. EGD showed moderately sized hiatal hernia and colonoscopy showed a circumferential sigmoid mass 28 cm from the anal verge and 5 mm rectal polyp. Based on that, the patient was taken to the operating room on 04/13/2022 and the patient underwent a low anterior resection on 04/13/2022. His course was comp licated by development of abdominal distention and worsening shortness of breath. This occurred on postoperative day #4. A CAT scan of the abdomen was done yesterday that showed evidence of a moderate to large amount of free intraperitoneal air consistent with anastomotic leak. There was also moderate bilateral pleural effusions. There was small amount of ascites around the liver. There was large hiatal hernia and by the edema. Chest x-ray from today is showing cardiomegaly, bilateral pleural effusion, is about the pulmonary infiltrates, thoracotomy wires, triple-lumen catheter in his left IJ and adequate positioning of the orogastric tube. There is evidence also of bilateral pleural effusions. On 04/19/2022, the patient remains intubated on a mechanical ventilator. The patient is postop day #2. THE patient had an anastomotic leak following bowel surgery in a patient presented to the intensive care following his surgery intubated on a mechanical ventilator. This morning, the patient is on propofol running at 45 mcg/kg/m. His calm and comfortable and symptoms mechanical v entilator. At the same time, is on assist control mode at a rate of 20, tidal volume of 450, FiO2 of 40% with a PEEP of 5. The blood gas from this morning shows a pH of 7.42 pCO2 of 42 and pO2 of 92. The chest x-ray from today is showing bilateral pleural effusion/consolidation is worse on the right. 82 is around 1.5 cm away from judah. Triple-lumen catheter was also placed in his left IJ. Hemodynamically, the patient is on IV fluids and currently is on bicarb infusion running at the rate of 75 mL an hour. His bicarb can be discontinued as the patient's serum bicarb is up to 25. Sodium is at 137 with a potassium level of 3.[address] Urine output is in order of 150 mL an hour. His overall fluid balance over the past 24 hours has been +3.5 L. In terms of hemodynamic support, the patient is on norepinephrine running at 0.1 mcg/kg/m. He also has vasopressin at physiologic dose at 0.03 units an hour. Cardiac rhythm is sinus. The patient was started on TPN for nutritional support which is running at the rate of 30 mL an hour. He is showing some signs of fluid overload with increase in scrotal edema. The colostomy stoma is viable. The tissue looks healthy. There is some liquidy material collecting in the bag. The abdomen is distended. Surgical wound is open and there is some limited serosanguineous material from the surgical one-sided. Orogastric tube in place. Output from the OG has been in the order of 10-20 mL over the past 24 hours. Patient is calm and comfortable. He is running episodes of fever. His T-max was 102. Blood culture is negative. Intra-abdominal cultures are still pending for now. The 2022, the patient's postop day #3 following his surgery for anastomotic leak, colectomy and diverticular colostomy. On today's evaluation, the patient remains on a mechanical ventilator. He is currently on propofol which is runn ing at 45 mcg/kg/m and his well rested. He remains on a mechanical ventilator. He is on assist control mode at the rate of 20, tidal volume of 450, FiO2 of 40% and PEEP of 5. The chest x-ray from today shows cardiomegaly, ET tube is in a good location, the patient has a triple-lumen cath in the right IJ. There is also evidence of bilateral pleural effusion which is essentially unchanged compared to yesterday and the findings of essentially stable for now. The blood gas shows a pH of 7.48 with a pCO2 of 39 and pO2 of 79. The patient is quite segments on mechanical ventilator. Hemodynamically, the patient is on KVO IV fluids. He did have significant fluid resuscitation. And IV fluids were cut down yesterday. He remains on pressors and norepinephrine is running at the rate of 0.03 mcg/kg/m. As such, his blood pressure has stabilized and he was also taken off the vasopressin. Cardiac rhythm is still sinus. Urine output is adequate for now. The patient was also started on TPN for nutritional support. On today's evaluation, the surgical wound is draining purulent foul-smelling material. The colostomy is viable and there is stool output in the colostomy bag. In terms of cultures, the wound needs to be cultured. The blood culture is negative. The abdominal wound cultures collected intraoperatively are still pending for now. The patient remains on IV Zosyn for now. Blood work shows a dull retrosternal 9 with a hemoglobin of 7.5 and a platelet count of 204. The sodium is at 135, potassium is to be replaced at 2.9 and the patient has a BUN of 22 with a creatinine of 1.36 and his acute kidney injury is also improving. Blood sugars at 202. Patient is on Levemir insulin 25 units twice a day and is also on sliding scale insulin coverage. Blood sugars under adequate control for now. Reevaluated today on 04/21/2022, patient is now postoperative day #4. Patient is status post surgery for an anastomotic leak, colectomy and diverticular colostomy. Remains in the ICU intubated and mechanically ventilated. He is on assist control rate of 20 tidal volume 450 FiO2 40% and PEEP of 5 ABG showed a pO2 of 97 pCO2 of 40 pH of 7.51 as no changes were made in the vent settings. Patient is still requiring norepinephrine at 0.02 mcg/kg/m propofol at 45 mcg/kg/m is also on TPN at 59 mL/h. Patient has good urine output, his ostomy seems to be functional. Chest x-ray continues to show small bilateral pleural effusions, endotracheal tube and catheters are in the proper position. WBC count is 12.2 hemoglobin is 7.7, basic metabolic profile is normal renal profile showed a BUN of 19 and creatinine of 1.34, steadily improving over the last 10 days. Patient is now sedated, and I plan to hold sedation on this patient today, address weaning parameters, and possibly give the patient weaning trial. Reevaluated today on 04/22/2022, patient remains in the ICU, he was extubated yesterday to BiPAP, and he remained overnight. Patient is on 12/6 and 40% FiO2 however after evaluating the patient today I switch him to nasal cannula. Patient is not in any distress. He is arousable, follows very simple instructions. And he is not in any distress his ostomy seems to be functioning he is still receiving TPN at 64 mL per hour and his IV fluid is at KVO. Leah nues to have good urine output WBC count is 12.4 hemoglobin 7.8 electrolytes are normal renal profile is showing improvement creatinine is down to 1.33. Chest x-ray continues to show small bilateral pleural effusions and mild pulmonary vascular congestion and cardiomegaly Reevaluated today on , remains in the ICU, patient tolerated extubation well for the last 2 days. Off BiPAP, on nasal cannula, O2 saturation is in the mid 90s on 2 L nasal cannula. Patient had low-grade temp last night, 99.6. He is hemodynamically stable, not in any distress, at times noted to be a bit lethargic and confused by the nurse, but on physical examination today, the patient seems to be quite appropriate. WBC count is 13.5 hemoglobin 7.6 basic metabolic profile is normal renal profile showed a creatinine of 1.23, steadily improving. Different cultures from the wound and from the abdomen were noted. Blood cultures have been negative. No chest x-ray was done today, but chest x- ray from yesterday showed small bilateral pleural effusions and mild pulmonary vascular congestion. Patient did receive Lasix yesterday. Reevaluated today on 04/24/2022, patient remains in the ICU, doing fairly well, no major issues overnight. Patient still doing a bit poorly with incentive spirometry, he has been up in the chair, continues to have scrotal edema and that's quite significant continues to have bipedal edema now he is on a maintenance dose of Lasix 20 mg twice a day. His antibiotics have been changed per infectious disease now he is on Merrem and daptomycin as well as Diflucan. Today I am cutting down the TPN to have dose since the patient is already tolerating oral intake. Tomorrow will likely discontinue TPN and go to full diet. Hemoglobin is a bit low today at 6.9, may consider transfusing the patient if the hemoglobin continues to drift down. Baseline has been in the 7.5 range for the last 5 days basic metabolic profile is normal renal profile is normal except for creatinine of 1.26, slightly worse today compared to yesterday and it was 1.23 yesterday. Patient is being followed by nephrology.. No chest x-ray has been done. Objective - Vital Signs Vital signs: Vital Signs Temp 97.7 F 03/16/23 12:02 Pulse 81 04/24/22 12:00 Resp 16 04/24/22 12:00 BP 108/65 04/24/22 12:00 Pulse Ox 96 04/24/22 12:00 FiO2 40 04/22/22 08:02 Intake & Output 04/23/22 04/24/22 04/24/22 18:59 06:59 18:59 Intake Total 2031 1343.1 961.3 Output Total 1825 1088 977 Balance 206 255.1 -15.7 Weight 95.5 kg 103.1 kg Intake: IV 482 263.1 333.3 0.9 100 DAPTOmycin 500 mg In 50 Sodium Chloride 0.9% 50 ml @ 100 mls/hr IVPB Q24H [facility] Rx#:[id number] Fluconazole in NaCl,Iso- 100 100 Osm 200 mg In Saline 1 100ml.bag @ 100 mls/hr IVPB DAILY [facility] Rx#: [id number] Invasive Line 1 10 20 110 Invasive Line 10 10 10 Meropenem 1 gm In Sodium 100 233.1 33.3 Chloride 0.9% 100 ml @ 33 .3 mls/hr IVPB Q8HR@0000, 0400,1200 [facility] Rx#: [id number] Mvi, Adult No.4 with Vit 90 K 10 ml Trace (Conc-1Ml/ Dose) 1 ml Calcium Gluconate 1 gm Potassium Chloride 20 meq Magnesium Sulfate gm 1 gm In Amino Acid 4.25%-D10w+Lytes*E* 1,000 ml @ 65 mls/hr IV .BY DURATION [facility] Rx#: [id number] Piperacillin-Tazobactam 3 100 .375 gm In Sodium Chloride 0.9% 100 ml @ 25 mls/hr IVPB Q8H [facility] Rx#: [id number] Pressure Bags 12 Intake, IV Titration 715 780 160 Amount Mvi, Adult No.4 with Vit 715 780 160 K 10 ml Trace (Conc-1Ml/ Dose) 1 ml Calcium Gluconate 1 gm Potassium Chloride 20 meq Magnesium Sulfate gm 1 gm Sodium Chloride 4Meq/ml Vial 20 meq In Amino Acid 4.25%- D10w+Lytes*E* 1,000 ml @ 65 mls/hr IV .BY DURATION [facility] Rx#:[id number] Oral 834 300 468 Output: Urine 1175 1088 477 Stool 650 500 Other: Voiding Method Indwelling Catheter Indwelling Catheter Indwelling Catheter ABP, PAP, CO, CI - Last Documented Arterial Blood Pressure 126/50 - Exam Physical Exam: Revealed a 72-year-old white male in no distress, on 2 L nasal cannula Head: Atraumatic, normocephalic HEENT:[Neck is supple.] [No neck masses.] [No thyromegaly.] [No JVD.]nonicteric, no neck masses Chest: [Symmetrical chest expansion, diminished breath sounds at the bases , no rhonchi no wheezes Cardiac Exam: [Normal S1 and S2, no S3 gallop, no murmur.] Abdomen:colostomy in the left upper quadrant. The colon tissue is pink and viable. His stool output in the colostomy bag. The patient has a open midabdominal incision with serosanguineous/bloody fluid seeping from the wound surface. No direct tenderness. No rebound tenderness. Positive bowel sounds. Patient has scrotal edema. Quite significant scrotal edema noted. Extremities: [No clubbing, 1+ bipedal edema, no cyanosis.]: Good pulses bilaterally. Neurological Exam: Alert and oriented 3 no focal deficit. Psychiatric: Normal mood, affect and normal mental status examination. - Labs CBC & Chem 7: 04/24/22 06:04 04/24/22 06:04 Labs: Abnormal Lab Results - Last 24 Hours (Table) 04/17/22 04/23/22 04/23/22 Range/Units 15:17 16:10 20:45 WBC (3.8-10.6) k/uL RBC (4.30-5.90) m/uL Hgb (13.0-17.5) gm/dL Hct (39.0-53.0) % MCHC (31.0-37.0) g/dL RDW (11.5-15.5) % Neutrophils # (1.3-7.7) k/uL Lymphocytes # (1.0-4.8) k/uL Sodium (137-145) mmol/L BUN (9-20) mg/dL Creatinine (0.66-1.25) mg/dL Glucose (74-99) mg/dL POC Glucose (mg/dL) 130 H 201 H (70-110) mg/dL Calcium (8.4-10.2) mg/dL Alkaline Phosphatase (38-126) U/L Total Protein (6.3-8.2) g/dL Albumin (3.5-5.0) g/dL Crossmatch See Detail 04/24/22 04/24/22 04/24/22 Range/Units 00:05 06:04 06:04 WBC 13.8 H (3.8-10.6) k/uL RBC 2.69 L (4.30-5.90) m/uL Hgb 6.9 L* (13.0-17.5) gm/dL Hct 22.9 L (39.0-53.0) % MCHC 30.1 L (31.0-37.0) g/dL RDW 19.1 H (11.5-15.5) % Neutrophils # 11.7 H (1.3-7.7) k/uL Lymphocytes # 0.9 L (1.0-4.8) k/uL Sodium 132 L (137-145) mmol/L BUN 28 H (9-20) mg/dL Creatinine 1.26 H (0.66-1.25) mg/dL Glucose 103 H (74-99) mg/dL POC Glucose (mg/dL) 169 H (70-110) mg/dL Calcium 7.3 L (8.4-10.2) mg/dL Alkaline Phosphatase 140 H (38-126) U/L Total Protein 4.8 L (6.3-8.2) g/dL Albumin 2.3 L (3.5-5.0) g/dL Crossmatch 04/24/22 04/24/22 04/24/22 Range/Units 06:22 07:34 11:05 WBC (3.8-10.6) k/uL RBC (4.30-5.90) m/uL Hgb (13.0-17.5) gm/dL Hct (39.0-53.0) % MCHC (31.0-37.0) g/dL RDW (11.5-15.5) % Neutrophils # (1.3-7.7) k/uL Lymphocytes # (1.0-4.8) k/uL Sodium (137-145) mmol/L BUN (9-20) mg/dL Creatinine (0.66-1.25) mg/dL Glucose (74-99) mg/dL POC Glucose (mg/dL) 118 H 125 H 191 H (70-110) mg/dL Calcium (8.4-10.2) mg/dL Alkaline Phosphatase (38-126) U/L Total Protein (6.3-8.2) g/dL Albumin (3.5-5.0) g/dL Crossmatch Microbiology - Last 24 Hours (Table) 04/20/22 10:05 Gram Stain - Final Abdomen Wound Culture - Preliminary Enterobacter cloacae Enterobacter cloacae#2 Escherichia coli Enterococcus faecalis 04/17/22 19:00 Blood Culture - Final Blood No Growth after 144 hours 04/20/22 15:40 Blood Culture - Preliminary Blood No Growth after 72 hours Assessment and Plan Assessment: Impression: Acute hypoxic respiratory failure secondary to abdominal sepsis and septic shock, patient was extubated uneventfully on 04/21/2022. Acute surgical abdomen secondary to anastomotic leak following a sigmoid resection and low AP resection from initial surgery performed on 04/13/2022 patient is now postoperative day #4, status post left colectomy and diverting colostomy Septic shock secondary to above secondary to abdominal sepsis, remains on antibiotics. 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 Valvular heart disease with moderate degree of mitral regurgitation and severe tricuspid regurgitation with pulmonary hypertension Underlying COPD Benign prostatic hypertrophy Recommendation: Incentive spirometry Ambulation as much as possible Continue to monitor in the ICU, for the next 24 hours Continue antibiotics, patient is on Merrem and on daptomycin Continue Diflucan Continue IV fluid at KVO Continue nutritional support/TPN however the dose down to half. Since the patient is tolerating oral diet. Continue GI and DVT prophylaxis bronchodilators for his underlying COPD We will continue to follow. Time with Patient: Less than 30
--- NOTE | 2022-04-24 13:55 | P.PN ---
Subjective Progress Note Date: 04/24/22 Principal diagnosis: Intra-abdominal infection Patient is a 72 year old male presented to the hospital with symptomatic anemia did have low anterior resection subsequently did have a anastomosis leak on 04/17/2022 with laparotomy and resection of ischemic portion abdominal culture were disregarded by micro-lab as possible contamination, subsequently did have a fever and more purulent drainage from abdominal incision that prompted with diarrhea infectious disease consultation On today's evaluation that is 04/24/2022, the patient did have a 100.2 this morning, the patient is currently off the pressor support and is breathing comfortably on 2 L nasal cannula oxygen, the patient denies having any chest pain or shortness of Cough has been combining of some abdominal pain but no nausea and vomiting nursing staff mentioning more drainage from the abdominal wound Objective - Vital Signs Vital signs: Vital Signs Temp 100.2 F H 04/24/22 08:00 Pulse 87 04/24/22 10:56 Resp 15 04/24/22 10:56 BP 126/63 04/24/22 09:00 Pulse Ox 96 04/24/22 09:00 FiO2 40 04/22/22 08:02 Intake & Output 04/23/22 04/24/22 04/24/22 18:59 06:59 18:59 Intake Total 2031 1343.1 861.3 Output Total 1825 1088 727 Balance 206 255.1 134.3 Weight 95.5 kg 103.1 kg Intake: IV 482 263.1 233.3 0.9 100 DAPTOmycin 500 mg In 50 Sodium Chloride 0.9% 50 ml @ 100 mls/hr IVPB Q24H [facility] Rx#:[id number] Fluconazole in NaCl,Iso- 100 100 Osm 200 mg In Saline 1 100ml.bag @ 100 mls/hr IVPB DAILY [facility] Rx#: [id number] Invasive Line 1 10 20 100 Invasive Line 10 10 10 Meropenem 1 gm In Sodium 100 233.1 33.3 Chloride 0.9% 100 ml @ 33 .3 mls/hr IVPB Q8HR@0000, 0400,1200 [facility] Rx#: [id number] Piperacillin-Tazobactam 3 100 .375 gm In Sodium Chloride 0.9% 100 ml @ 25 mls/hr IVPB Q8H [facility] Rx#: [id number] Pressure Bags 12 Intake, IV Titration 715 780 160 Amount Mvi, Adult No.4 with Vit 715 780 160 K 10 ml Trace (Conc-1Ml/ Dose) 1 ml Calcium Gluconate 1 gm Potassium Chloride 20 meq Magnesium Sulfate gm 1 gm Sodium Chloride 4Meq/ml Vial 20 meq In Amino Acid 4.25%- D10w+Lytes*E* 1,000 ml @ 65 mls/hr IV .BY DURATION [facility] Rx#:[id number] Oral 834 300 468 Output: Urine 1175 1088 227 Stool 650 500 Other: Voiding Method Indwelling Catheter Indwelling Catheter Indwelling Catheter ABP, PAP, CO, CI - Last Documented Arterial Blood Pressure 126/50 - Exam GENERAL DESCRIPTION: An elderly male lying in bed in no distress RESPIRATORY SYSTEM: Unlabored breathing , decreased breath sounds at bases HEART: S1 S2 regular rate and rhythm , ABDOMEN: Soft , no tenderness, abdominal incision is currently dressed EXTREMITIES: No edema feet - Labs CBC & Chem 7: 04/24/22 06:04 04/24/22 06:04 Labs: Abnormal Lab Results - Last 24 Hours (Table) 04/17/22 04/23/22 04/23/22 Range/Units 15:17 11:53 16:10 WBC (3.8-10.6) k/uL RBC (4.30-5.90) m/uL Hgb (13.0-17.5) gm/dL Hct (39.0-53.0) % MCHC (31.0-37.0) g/dL RDW (11.5-15.5) % Neutrophils # (1.3-7.7) k/uL Lymphocytes # (1.0-4.8) k/uL Sodium (137-145) mmol/L BUN (9-20) mg/dL Creatinine (0.66-1.25) mg/dL Glucose (74-99) mg/dL POC Glucose (mg/dL) 187 H 130 H (70-110) mg/dL Calcium (8.4-10.2) mg/dL Alkaline Phosphatase (38-126) U/L Total Protein (6.3-8.2) g/dL Albumin (3.5-5.0) g/dL Crossmatch See Detail 04/23/22 04/24/22 04/24/22 Range/Units 20:45 00:05 06:04 WBC (3.8-10.6) k/uL RBC (4.30-5.90) m/uL Hgb (13.0-17.5) gm/dL Hct (39.0-53.0) % MCHC (31.0-37.0) g/dL RDW (11.5-15.5) % Neutrophils # (1.3-7.7) k/uL Lymphocytes # (1.0-4.8) k/uL Sodium 132 L (137-145) mmol/L BUN 28 H (9-20) mg/dL Creatinine 1.26 H (0.66-1.25) mg/dL Glucose 103 H (74-99) mg/dL POC Glucose (mg/dL) 201 H 169 H (70-110) mg/dL Calcium 7.3 L (8.4-10.2) mg/dL Alkaline Phosphatase 140 H (38-126) U/L Total Protein 4.8 L (6.3-8.2) g/dL Albumin 2.3 L (3.5-5.0) g/dL Crossmatch 04/24/22 04/24/22 04/24/22 Range/Units 06:04 06:22 07:34 WBC 13.8 H (3.8-10.6) k/uL RBC 2.69 L (4.30-5.90) m/uL Hgb 6.9 L* (13.0-17.5) gm/dL Hct 22.9 L (39.0-53.0) % MCHC 30.1 L (31.0-37.0) g/dL RDW 19.1 H (11.5-15.5) % Neutrophils # 11.7 H (1.3-7.7) k/uL Lymphocytes # 0.9 L (1.0-4.8) k/uL Sodium (137-145) mmol/L BUN (9-20) mg/dL Creatinine (0.66-1.25) mg/dL Glucose (74-99) mg/dL POC Glucose (mg/dL) 118 H 125 H (70-110) mg/dL Calcium (8.4-10.2) mg/dL Alkaline Phosphatase (38-126) U/L Total Protein (6.3-8.2) g/dL Albumin (3.5-5.0) g/dL Crossmatch Microbiology - Last 24 Hours (Table) 04/20/22 10:05 Gram Stain - Final Abdomen Wound Culture - Preliminary Enterobacter cloacae Enterobacter cloacae#2 Escherichia coli Group D Enterococcus 04/17/22 19:00 Blood Culture - Final Blood No Growth after 144 hours 04/20/22 15:40 Blood Culture - Preliminary Blood No Growth after 72 hours Assessment and Plan (1) Abdominal wall abscess Current Visit: Yes Status: Acute Code(s): L02.211 - CUTANEOUS ABSCESS OF ABDOMINAL WALL SNOMED Code(s): 56597968 Plan: 1patient with admission to the hospital with symptomatic anemia 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 2blood culture has been obtained and so far negative repeat abdominal cultures did grew multidrug resistant Enterobacter E. coli and enterococcus 3patient to continue with meropenem daptomycin and monitor clinical course closely if any new fever and will benefit from CT abdominal pelvis Time with Patient: Less than 30
--- NOTE | 2022-04-24 14:16 | P.PN ---
Subjective Progress Note Date: 04/24/22 CHIEF COMPLAINT: Colon mass HISTORY OF PRESENT ILLNESS: Patient had lower anterior resection for sigmoid colon mass on 04/13/2022. He developed anastomotic leak and is now postop day #7 status post exploratory laparotomy, washout of abdomen takedown of anastomosis and colostomy in the left upper quadrant for anastomotic leak secondary to ischemic colon. Patient reports pain is controlled. Denies any nausea or vomiting. Ostomy is functioning. He is receiving IV Lasix for fluid overload. Patient did have low-grade fever of 100.2 this morning. BP is on the lower side. WBC is 13.8 hemoglobin down from 7.6-6.9 platelets are 360 08/10[birth year]1931 potassium 4.6 creatinine 1.26. Nursing staff reporting foul-smelling drainage from incision. Patient seen and examined with Dr. Carrera PHYSICAL EXAM: VITAL SIGNS: Reviewed. GENERAL: Well-developed in no acute distress. HEENT: No sclera icterus. Extraocular movements grossly intact. Moist buccal mucosa. Head is atraumatic, normocephalic. ABDOMEN: Soft. Incisional dressing intact. Lower part of the dressing had been saturated. Colostomy with stool. Stoma beefy red NEUROLOGIC: Alert and oriented. Cranial nerves II through XII grossly intact. ASSESSMENT: 1. 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 Anastomotic leak secondary to ischemic colon status post exploratory laparotomy, abdominal washout and colostomy placement 3. Anemia due to GI bleed from the colon mass 4. History of coronary disease with stents placed in February 2022 with prior CABG 5. Intra-abdominal sepsis 6. Peritonitis PLAN: -Continue full liquids -Do not recommend CT scan of abdomen at this time -Continue to monitor -Continue supportive care -Continue antibiotics -Ok to wean off TPN -Change wound care to Aquacel silver dressing -Continue to monitor CBC -Increase activity level -GI prophylaxis Pepcid and DVT prophylaxis subcu heparin Physician Banking Services Advisor note has been reviewed by physician. Signing provider agrees with the documented findings, assessment, and plan of care. Objective - Vital Signs Vital signs: Vital Signs Temp 97.7 F 04/24/22 12:02 Pulse 85 04/24/22 13:00 Resp 12 04/24/22 13:00 BP 101/56 04/24/22 13:00 Pulse Ox 96 04/24/22 13:00 FiO2 40 04/22/22 08:02 Intake & Output 04/23/22 04/24/22 04/24/22 18:59 06:59 18:59 Intake Total 2031 1343.1 1688.3 Output Total 1825 1088 1027 Balance 206 255.1 661.3 Weight 95.5 kg 103.1 kg Intake: IV 482 263.1 363.3 0.9 100 DAPTOmycin 500 mg In 50 Sodium Chloride 0.9% 50 ml @ 100 mls/hr IVPB Q24H [facility] Rx#:[id number] Fluconazole in NaCl,Iso- 100 100 Osm 200 mg In Saline 1 100ml.bag @ 100 mls/hr IVPB DAILY [facility] Rx#: [id number] Invasive Line 1 10 20 110 Invasive Line 10 10 10 Meropenem 1 gm In Sodium 100 233.1 33.3 Chloride 0.9% 100 ml @ 33 .3 mls/hr IVPB Q8HR@0000, 0400,1200 [facility] Rx#: [id number] Mvi, Adult No.4 with Vit 120 K 10 ml Trace (Conc-1Ml/ Dose) 1 ml Calcium Gluconate 1 gm Potassium Chloride 20 meq Magnesium Sulfate gm 1 gm In Amino Acid 4.25%-D10w+Lytes*E* 1,000 ml @ 65 mls/hr IV .BY DURATION [facility] Rx#: [id number] Piperacillin-Tazobactam 3 100 .375 gm In Sodium Chloride 0.9% 100 ml @ 25 mls/hr IVPB Q8H [facility] Rx#: [id number] Pressure Bags 12 Intake, IV Titration 715 780 160 Amount Mvi, Adult No.4 with Vit 715 780 160 K 10 ml Trace (Conc-1Ml/ Dose) 1 ml Calcium Gluconate 1 gm Potassium Chloride 20 meq Magnesium Sulfate gm 1 gm Sodium Chloride 4Meq/ml Vial 20 meq In Amino Acid 4.25%- D10w+Lytes*E* 1,000 ml @ 65 mls/hr IV .BY DURATION [facility] Rx#:[id number] Oral 710 798 9110 Output: Urine 1175 1088 527 Stool 650 500 Other: Voiding Method Indwelling Catheter Indwelling Catheter Indwelling Catheter ABP, PAP, CO, CI - Last Documented Arterial Blood Pressure 126/50 - Labs CBC & Chem 7: 04/24/22 06:04 04/24/22 06:04 Labs: Abnormal Lab Results - Last 24 Hours (Table) 04/23/22 04/23/22 04/24/22 Range/Units 16:10 20:45 00:05 WBC (3.8-10.6) k/uL RBC (4.30-5.90) m/uL Hgb (13.0-17.5) gm/dL Hct (39.0-53.0) % MCHC (31.0-37.0) g/dL RDW (11.5-15.5) % Neutrophils # (1.3-7.7) k/uL Lymphocytes # (1.0-4.8) k/uL Sodium (137-145) mmol/L BUN (9-20) mg/dL Creatinine (0.66-1.25) mg/dL Glucose (74-99) mg/dL POC Glucose (mg/dL) 130 H 201 H 169 H (70-110) mg/dL Calcium (8.4-10.2) mg/dL Alkaline Phosphatase (38-126) U/L Total Protein (6.3-8.2) g/dL Albumin (3.5-5.0) g/dL 04/24/22 04/24/22 04/24/22 Range/Units 06:04 06:04 06:22 WBC 13.8 H (3.8-10.6) k/uL RBC 2.69 L (4.30-5.90) m/uL Hgb 6.9 L* (13.0-17.5) gm/dL Hct 22.9 L (39.0-53.0) % MCHC 30.1 L (31.0-37.0) g/dL RDW 19.1 H (11.5-15.5) % Neutrophils # 11.7 H (1.3-7.7) k/uL Lymphocytes # 0.9 L (1.0-4.8) k/uL Sodium 132 L (137-145) mmol/L BUN 28 H (9-20) mg/dL Creatinine 1.26 H (0.66-1.25) mg/dL Glucose 103 H (74-99) mg/dL POC Glucose (mg/dL) 118 H (70-110) mg/dL Calcium 7.3 L (8.4-10.2) mg/dL Alkaline Phosphatase 140 H (38-126) U/L Total Protein 4.8 L (6.3-8.2) g/dL Albumin 2.3 L (3.5-5.0) g/dL 04/24/22 04/24/22 Range/Units 07:34 11:05 WBC (3.8-10.6) k/uL RBC (4.30-5.90) m/uL Hgb (13.0-17.5) gm/dL Hct (39.0-53.0) % MCHC (31.0-37.0) g/dL RDW (11.5-15.5) % Neutrophils # (1.3-7.7) k/uL Lymphocytes # (1.0-4.8) k/uL Sodium (137-145) mmol/L BUN (9-20) mg/dL Creatinine (0.66-1.25) mg/dL Glucose (74-99) mg/dL POC Glucose (mg/dL) 125 H 191 H (70-110) mg/dL Calcium (8.4-10.2) mg/dL Alkaline Phosphatase (38-126) U/L Total Protein (6.3-8.2) g/dL Albumin (3.5-5.0) g/dL Microbiology - Last 24 Hours (Table) 04/20/22 10:05 Anaerobic Culture - Final Abdomen Anaerobic Gm Negative Bacilli Anaerobic Gm Negative Bacilli#2 Anaerobic Gm Positive Bacill 04/20/22 10:05 Gram Stain - Final Abdomen Wound Culture - Preliminary Enterobacter cloacae Enterobacter cloacae#2 Escherichia coli Enterococcus faecalis 04/17/22 19:00 Blood Culture - Final Blood No Growth after 144 hours 04/20/22 15:40 Blood Culture - Preliminary Blood No Growth after 72 hours
--- NOTE | 2022-04-24 16:40 | P.PN ---
Subjective Patient is a 72-year-old male with a known history of coronary artery disease status post CABG and recent stent placement in February 2022 initially presented to ER with complaints of shortness of breath and exertional dyspnea. Patient initially thought it was due to his heart condition and went to ER. Patient was found to have a hemoglobin of 6.9 and received 1 unit of PRBC. Patient was tested positive for FOBT. Patient is also taking aspirin and Plavix from recent stent placement. Patient also states that he has been taking Motrin for the last couple of weeks for his neuropathy pain in his feet. Denies any complaints of hematemesis dark-colored stools. Patient was transferred to [facility] for GI evaluation. On admission WBC 4.4 hemoglobin 7.5 MCV 79.7 and platelets 243 Sodium 143 potassium 4.2 chloride 101 bicarb is 19 BUN 25 and creatinine 1.72 Calcium 7.4 04/11/2022 Patient is currently resting in bed. Awake alert and oriented x3. No complaints of chest pain or shortness of breath. Otherwise underwent EGD and colonoscopy today. EGD showed moderate size hiatal hernia but no evidence of esophagitis or peptic ulcer disease. No evidence of GI bleed. Colonoscopy showed a) Near circumferential sigmoid colon mass at 28 cm from the anal verge status post multiple biopsies followed by tattooing with Aiyana ink b) 5 mm rectal polyp status post polypectomy General surgery was consulted and follow-up biopsy report.. Hemoglobin is stable at 8.6 otherwise. Denies any complaints of nausea or vomiting. Patient was started on clear liquid diet and follow H&H. 04/12/2022 Patient is currently resting in the bed. Awake alert and oriented x3. No complaints of chest pain or shortness of breath. No nausea vomiting abdominal pain or diarrhea. No cough or sputum production. Patient was seen by general surgery and is planning for or tomorrow. Antiplatelets on hold. Laboratory data reviewed. Patient is being current on iron supplementation Protonix IV push daily. 04/13/2022 Patient is currently lying in bed. Awake alert and oriented. Pain is fairly controlled. Status post low anterior resection of the sigmoid colon. Postoperative day 0 No fever no chills. Currently on room air. No nausea vomiting or diarrhea. Laboratory data showed WBC 5.3 hemoglobin 7.7 platelets 216 sodium 140 potassium 3.8 chloride 106 bicarb is 22 BUN 16 and creatinine 1.69. Calcium 7.5. General surgery and cardiology is on board. 04/14/2022 Patient is evaluated today sitting up in chair currently postoperative day #1 low anterior resection for sigmoid colon mass with pathology currently pending at this time. Patient is currently on clear liquid diet. Not passing gas yet and no BM. Reports controlled incisional abdominal pain. Wound vac is in place and intact. Patient is currently on D5 0.45 normal saline with potassium. Creatinine is up to 2.0 today. 04/15/2022 Patient is evaluated today on stepdown unit currently postoperative day #2 sigmoid colon resection. Aspirin and plavix remain on hold. Cardiology following closely. Blood pressure has improved to 139/71 today. Indwelling catheter removed yesterday afternoon, patient has issues with urinary retention overnight and for this reason normal saline was placed on hold. Patient has been unable to void and urinary strait cath was unable to produce urine. Bladder scan today showing 70 mls in urinary bladder. Creatinine is up to 2.86 today. Urology has been consulted for placement of urinary catheter and IV fluids have been resumed at an increased rate. Continues on clear liquid diet. Reports abdominal pain is controlled today. Blood glucose has been increased and insulin has been added. Remains afebrile, heart rate 72, blood pressure 120/68, 92% room air. 04/16/2022 Patient is evaluated on medical floor. he is postoperative day #3 sigmoid colon resection. Patient had urinary catheter placed by urology for urinary retention. Overnight has had 225 mLs of urine output, he is continued on normal saline at 125 mls/hr. Creatinine today has improved 2.29. Sodium up to 134. Renal ultrasound has been ordered and will repeat labs in AM. Patient had a bowel movement today he reports. He has some abdominal distention, states he is not passing much gas and feels bloated. Hemodynamically stable. 04/17/2022 Patient is evaluated on medical floor. Patients abdomen appears more distended with increased shortness of breath. He is postoperative day #4 low anterior resection of sigmoid colon secondary to mass. 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 He had chest xray completed with report called by radiology with large amount of free intraperitoneal air and bilateral infiltrate and small effusion. Correlate for mild venous congestion. Abdominal pelvis CT was ordered and results showing moderate to large amount of free intraperitoneal air may be related to patients interval surgery and colonic resection. Moderate bilateral pleural effusions, small amount of ascites around the liver, body wall edema, large hiatal hernia. Patient will undergo exploratory laporatomy today. Patient was noted to have purulent drainage from wound vac and also from midline incision which was cultured and patient was started on antibiotics. Blood cultures will be taken as well. Patient has been hydrated overnight with normal saline and creatinine has improved to 2.0, however his urine output remains marginal with 600 mls in the last 24 hours from indwelling urinary catheter. Renal ultrasound showing poss ible mild thinning of left renal cortex correlate for chronic medical renal disease with no hydronephrosis or nephrolisthiasis. Labs today showing white count 7.98, hgb 7.1, platelets 97, sodium 138, potassium 4.7, BUN 36.3, creatinine 2.0. Urinalysis negative. Patient is afebrile, heart rate 78, blood pressure 142/63, 100% on 3L nasal cannula. 04/18/2022 Patient is evaluated in the intensive care unit currently intubated on mechanical ventilator and sedated. Patient was found to have free air in the abdomen and was taken for exploratory laporatomy yesterday and was found to have ischemic bowel. Patient had take down of the anastamosis and colectomy, washout of abdomen and colostomy left upper quadrant. Patient was taken from the OR and admitted to the intensive care unit. Patient is evaluated today postoperative day #1, and also postoperative day #5 low anterior resection. Patient has OG tube in place with 200 mls of gastric output total which brown in color with black noted in the collection cannister. He did receive 2 units of PRBCs and hemoglobin is stable today at 8.4. He received 1 unit of PRBC on admission as well. He continues on aspirin 81 mg daily and plavix remains on hold. Cardiology following. Patient had ABGs done today showing pH of 7.38, pCO2 of 34, pO2 of 120 HCO3 of 20. He will continue to remain on mechanical ventilator overnight. Blood pressure remains on the lower side and patient is currently on lovephed running at 0.28 mcg/kg/min. Nephrology is following and patient continues on bicarbonate gtt running at 75 mls/hr. Chest xray today reports persistent areas of consolidation pleural effusion correlate for CHF, superimposed pneumonia not excluded. Blood culture and wound cultures are pending and patient has been started on IV zosyn. Patient will be started on TPN today. He is sedated with propofol. Surgical site is examined with retention sutures in place covered with ABD dressing. Additionally patient has LUQ colostomy in place with stoma showing no signs of necrosis and there is small amt of brown liquid stool in ostomy. Labs today showing white count of 7.5, hgb 8.4, sodium 134, potassium 3.7, BUN 32, creatinine 1.66, blood glucose 242, calcium 6.4, phosphorous 3.3, magnesium 1.8, albumin 2.2. Patient has temp of 100.7 today, heart rate 82, blood pressure 99/43, and oxygen saturation of 98% on mechanical ventilator with 40% FiO2. 04/19/2022 Patient is evaluated in the intensive care unit. He is currently intubated on mechanical ventilator with FiO2 of 40% He is receiving TPN. He is sedated with propofol. He is requiring levophed and vasopressin has been added. Blood pressures are improved into the 120s systolic. Creatinine has also improved to 1.56. Blood culture and wound culture are pending and IV zosyn is continued. Ch est xray today showing cardiomegaly with pulmonary vascular congestion and bilateral pleural effusions. IV bicarb has been discontinued. Scrotal edema is increased and patient has generalized peripheral edema as well. There is NG tube in place with minimal output and continues to be black/dark brown in color. Patient has watery output from ostomy. Retention sutures are removed and abdomen is open and has some sanguineous drainage. He appears comfortable. Urine output has increased. IV tylenol in place for fever. 04/20/2022 Patient continues to be monitored closely in intensive care unit. He is currently intubated and sedated on the mechanical ventilator with FiO2 of 40%. Blood gases are done today with pH of 7.48, pO2 79. Patient is currently running temp intermittently. He continues on levophed and vasopressin is on hold. Patient is currently sedated with propofol. Abdomen culture from 04/17 showing multiple gram negative bacilli colonies and also group D enterococcus. Patient remains on IV zosyn and has also been started on IV diflucan and also IV vancomycin. Chest xray today showing stable support tubes, similiar cardiomegaly, suspected similar pleural effusions. Labs today showing white count of 9.0, hgb of 7.5. Creatinine continues to improve currently 1.36, potassium 2.9. Blood glucose up in the 200s and insulin continues to be increased. Patient continues on TPN. Abdominal wound is open and packed with gauze with foul odor noted. Bowel sounds are increased and patient is making stool from ostomy today light brown and has some formed stool. 04/21/2022 Patient is evaluated in intensive care unit during sedation holiday. He has spontaneous eye opening and is following commands. Remains lethargic. He has OG tube in place. He continues on mechanical ventilator with FiO2 of 40%. ABGs are done patient will be extubated today. He has stool from ostomy with increased bowel sounds. Repeat abdominal culture is pending. Anaerobic culture is showing 2 gram negative bacilli species. Patient continues on IV daptomycin, IV fluconazole, and IV zosyn. Infectious disease on and following abdominal cultures. Patient is off pressor support at this time and blood pressures are in the 140s systolic. He has heart rate of 110 and atenolol can be resumed. Patient has T-Max of 100.4 today. Chest xray showing persistent bilateral pleural effusions. 04/22/2022 Patient continues to be monitored closely in the intensive care unit and was successfully extubated yesterday. He has diffuse generalized weakness. He is alert x 2 and agitated today requesting to get up and out of bed. He has physical therapy on to work with him today. He has NG tube removed. Continues on nasal cannula. Abdominal culture repeat is again finalized as gram negative bacilli x 3 and Group D enterococcus and polymicrobial species. Discussed with [facility] and specimen will continue to be work up for microsensitivities. This was discussed with ID who is recommending follow up CT scan. Discussed recommendations with surgeon recommending to hold off on CT for now and monitor clinically. Patient continues on IV daptomcyin and IV zosyn. He is also on IV fluconazole. He continues to make stool from ostomy and bowel sounds are active, his dressing is intact with some drainage noted. He had chest xray today showing small bilateral pleural effusions with mild pulmonary vascular congestion and c ardiomegaly. Patient continues with significant peripheral edema and scrotal edema. Patient did receive a dose of IV lasix 20 mg today. He is off vasopressor support. His blood pressure remains stable in the 120s systolic and heart rate is elevated in the low 100s. He has been resumed on low dose betablocker. Patient has diuresed over 5L in the last 24 hours. White count of 12.4 today, hemoglobin stable at 7.8, sodium of 136, BUN 20, creatinine 1.33, blood glucose of 188, calcium 7.4. He continues with fever T max of 100.9 in the last 24 hours. 04/23/2022 Patient continues to be monitored closely in intensive care unit. He is awake and alert today, sitting up in bed at about 90*. He is postoperative day #10 low anterior resection and postoperative day #6 abdominal washout take down of an astamosis, left colectomy and LUQ colostomy formation. He has stool from the ostomy. His dressing is intact to midline incision and he has bowel sounds. He as resumed on beta taylor yesterday and heart rate has been in the 80s to 90s sinus rhythm. Blood pressure 124/61 today. His white count continues to elevated currently 13.5 today. His fever has started to improve in the last 24 hours T Max of 99.6. Abdominal wound cultures show enterobacter cloacae with drug resistance e. coli and group D enterococcus, ID following cultures and antibiotics have been adjusted to IV daptomycin and IV meropenem. Final microsensitivities are pending. Patient remains on TPN and continues on levemir 30 units BID with sliding scale q6h and his blood glucose has improved to the 180s. He is using incentive spirometer. He is working with physical therapy. Renal function has improved. 04/24/2022 Patient remains in the ICU, where and awake but generally weak, he has an edematous lower extremity but denies chest pain or dyspnea. Is a status post resection of colon mass on 04/13 with left colostomy and [place] colectomy, his colostomy bag is with yellow stool and is emptying, patient says that he has a bowel movement today as he states. Bo catheter and place. Overall patient reports feeling little better Hemoglobin is 6.9, no blood transfusion is recommended today but we will keep monitoring hemoglobin Surgical team on the case and his currently on liquid diet with recommendation to taper off his TPN Patient also with evidence of acute kidney disease on CT decreased 3 but creatinine improved down to 1.2. He is on IV Lasix 20 mg twice daily. Also his covered for meropenem, daptomycin and fluconazole, ID team on the case. His septic shock has improved and currently does not need any pressors. Objective - Vital Signs Vital signs: Vital Signs Temp 97.7 F 04/24/22 12:02 Pulse 81 04/24/22 12:00 Resp 16 04/24/22 12:00 BP 108/65 04/24/22 12:00 Pulse Ox 96 04/24/22 12:00 FiO2 40 04/22/22 08:02 Intake & Output 04/23/22 04/24/22 04/24/22 18:59 06:59 18:59 Intake Total 2031 1343.1 961.3 Output Total 1825 1088 977 Balance 206 255.1 -15.7 Weight 95.5 kg 103.1 kg Intake: IV 482 263.1 333.3 0.9 100 DAPTOmycin 500 mg In 50 Sodium Chloride 0.9% 50 ml @ 100 mls/hr IVPB Q24H [facility] Rx#:[id number] Fluconazole in NaCl,Iso- 100 100 Osm 200 mg In Saline 1 100ml.bag @ 100 mls/hr IVPB DAILY [facility] Rx#: [id number] Invasive Line 1 10 20 110 Invasive Line 10 10 10 Meropenem 1 gm In Sodium 100 233.1 33.3 Chloride 0.9% 100 ml @ 33 .3 mls/hr IVPB Q8HR@0000, 0400,1200 [facility] Rx#: [id number] Mvi, Adult No.4 with Vit 90 K 10 ml Trace (Conc-1Ml/ Dose) 1 ml Calcium Gluconate 1 gm Potassium Chloride 20 meq Magnesium Sulfate gm 1 gm In Amino Acid 4.25%-D10w+Lytes*E* 1,000 ml @ 65 mls/hr IV .BY DURATION [facility] Rx#: [id number] Piperacillin-Tazobactam 3 100 .375 gm In Sodium Chloride 0.9% 100 ml @ 25 mls/hr IVPB Q8H [facility] Rx#: [id number] Pressure Bags 12 Intake, IV Titration 715 780 160 Amount Mvi, Adult No.4 with Vit 715 780 160 K 10 ml Trace (Conc-1Ml/ Dose) 1 ml Calcium Gluconate 1 gm Potassium Chloride 20 meq Magnesium Sulfate gm 1 gm Sodium Chloride 4Meq/ml Vial 20 meq In Amino Acid 4.25%- D10w+Lytes*E* 1,000 ml @ 65 mls/hr IV .BY DURATION [facility] Rx#:[id number] Oral 834 300 468 Output: Urine 1175 1088 477 Stool 650 500 Other: Voiding Method Indwelling Catheter Indwelling Catheter Indwelling Catheter ABP, PAP, CO, CI - Last Documented Arterial Blood Pressure 126/50 - Exam GENERAL: The patient is alert and oriented x3, not in any acute distress. Well developed, well nourished. HEENT: Pupils are round and equally reacting to light. EOMI. No scleral icterus. No conjunctival pallor. Normocephalic, atraumatic. No pharyngeal erythema. No thyromegaly. CARDIOVASCULAR: S1 and S2 present. No murmurs, rubs, or gallops. PULMONARY: Chest is clear to auscultation, no wheezing or crackles. -ABDOMEN: Soft, nontender, nondistended, normoactive bowel sounds. No palpable organomegaly. Left colostomy back with yellow stool. Surgical wound is healing and closed MUSCULOSKELETAL: No joint swelling or deformity. -EXTREMITIES: No cyanosis, clubbing, or 2+ bilateral pitting leg edema. NEUROLOGICAL: Gross neurological examination did not reveal any focal deficits. SKIN: No rashes. no petechiae. - Labs CBC & Chem 7: 04/24/22 06:04 04/24/22 06:04 Labs: Abnormal Lab Results - Last 24 Hours (Table) 04/17/22 04/23/22 04/23/22 Range/Units 15:17 16:10 20:45 WBC (3.8-10.6) k/uL RBC (4.30-5.90) m/uL Hgb (13.0-17.5) gm/dL Hct (39.0-53.0) % MCHC (31.0-37.0) g/dL RDW (11.5-15.5) % Neutrophils # (1.3-7.7) k/uL Lymphocytes # (1.0-4.8) k/uL Sodium (137-145) mmol/L BUN (9-20) mg/dL Creatinine (0.66-1.25) mg/dL Glucose (74-99) mg/dL POC Glucose (mg/dL) 130 H 201 H (70-110) mg/dL Calcium (8.4-10.2) mg/dL Alkaline Phosphatase (38-126) U/L Total Protein (6.3-8.2) g/dL Albumin (3.5-5.0) g/dL Crossmatch See Detail 04/24/22 04/24/22 04/24/22 Range/Units 00:05 06:04 06:04 WBC 13.8 H (3.8-10.6) k/uL RBC 2.69 L (4.30-5.90) m/uL Hgb 6.9 L* (13.0-17.5) gm/dL Hct 22.9 L (39.0-53.0) % MCHC 30.1 L (31.0-37.0) g/dL RDW 19.1 H (11.5-15.5) % Neutrophils # 11.7 H (1.3-7.7) k/uL Lymphocytes # 0.9 L (1.0-4.8) k/uL Sodium 132 L (137-145) mmol/L BUN 28 H (9-20) mg/dL Creatinine 1.26 H (0.66-1.25) mg/dL Glucose 103 H (74-99) mg/dL POC Glucose (mg/dL) 169 H (70-110) mg/dL Calcium 7.3 L (8.4-10.2) mg/dL Alkaline Phosphatase 140 H (38-126) U/L Total Protein 4.8 L (6.3-8.2) g/dL Albumin 2.3 L (3.5-5.0) g/dL Crossmatch 04/24/22 04/24/22 04/24/22 Range/Units 06:22 07:34 11:05 WBC (3.8-10.6) k/uL RBC (4.30-5.90) m/uL Hgb (13.0-17.5) gm/dL Hct (39.0-53.0) % MCHC (31.0-37.0) g/dL RDW (11.5-15.5) % Neutrophils # (1.3-7.7) k/uL Lymphocytes # (1.0-4.8) k/uL Sodium (137-145) mmol/L BUN (9-20) mg/dL Creatinine (0.66-1.25) mg/dL Glucose (74-99) mg/dL POC Glucose (mg/dL) 118 H 125 H 191 H (70-110) mg/dL Calcium (8.4-10.2) mg/dL Alkaline Phosphatase (38-126) U/L Total Protein (6.3-8.2) g/dL Albumin (3.5-5.0) g/dL Crossmatch Microbiology - Last 24 Hours (Table) 04/20/22 10:05 Gram Stain - Final Abdomen Wound Culture - Preliminary Enterobacter cloacae Enterobacter cloacae#2 Escherichia coli Enterococcus faecalis 04/17/22 19:00 Blood Culture - Final Blood No Growth after 144 hours 04/20/22 15:40 Blood Culture - Preliminary Blood No Growth after 72 hours Assessment and Plan Assessment: Sigmoid colon mass status post low anterior resection postoperative day #10 with 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 Anastomotic leak and ischemic bowel following low anterior resection patient is currently postoperative day #6 abdominal washout, takedown of anastamosis with left colectomy and colostomy formation LUQ. Shock likely septic shock secondary to above and patient is currently off vasopressor support and blood pressure is stable Acute hypoxic respiratory failure requiring intubation, patient has been extubated on 04/21/2022 and continues on 2L of oxygen via nasal cannula. Acute blood loss anemia from GI bleed secondary to sigmoid colon mass. Patient has received 3 units of blood this admission. Hemoglobin stable at 7.6 Acute kidney injury prerenal with acute tubular necrosis, improved Postoperative urinary retention with indwelling catheter placed Microcytic anemia with iron deficiency. Hyperglycemia Coronary artery disease with history of stent placement in February 2022 Coronary artery disease history of CABG Plan: Keep the patient in the ICU following now Advance diet per surgery team, currently on liquid diet, taper off TPN Continue with IV Lasix twice daily Continue with antibiotic as per ID team, currently on meropenem, daptomycin and fluconazole Continue with Levemir and) and with a glucose Continue with aspirin No need for blood transfusion and keep monitoring hemoglobin Monitor creatinine several consultants on the case including pulmonary/critical care team, surgery team, nephrology team and infectious disease team Labs and medication were reviewed.. Continue same treatment. Continue with symptomatic treatment. Resume home medication. Monitor labs and vitals. DVT and GI prophylaxis. Further recommendations as per clinical course of the patient DVT prophylaxis: Subcutaneous heparin GI Prophylaxis: Pepcid PT/OT: Pending Prognosis is guarded
[2022-04-24] MEDS: 1: MVI, ADULT NO.4 WITH VIT K 10 ML, TRACE (CONC-1ML/DOSE) 1 ML, CALCIUM GLUCONATE 1 GM, IV SCH ×14 (17:00→20:07)
[2022-04-24 17:08] LABS: Glucose,Whole Blood 117 mg/dL (70-110)
[2022-04-24 21:38] LABS: Glucose,Whole Blood 147 mg/dL (70-110)
[2022-04-24] MEDS: MELATONIN 3 MG TABLET PO SCH (22:15)
[2022-04-24 23:25] LABS: Glucose,Whole Blood 137 mg/dL (70-110)
[2022-04-25] MEDS: MEROPENEM 1 GM in SODIUM CHLORIDE 0.9% 100 ML IVPB SCH ×3 (05:01→23:59)
[2022-04-25 05:51] LABS: Glucose,Whole Blood 78 mg/dL (70-110)
[2022-04-25] MEDS: INSULIN ASPART (NovoLOG) 100 UNIT/ML VIAL SQ SCH ×4 (06:00→23:54)
[2022-04-25 06:35] LABS: Albumin 2.7 g/dL (3.5-5.0); Calcium 7.7 mg/dL (8.4-10.2); Phosphorus 3.1 mg/dL (2.5-4.5); Potassium 4.6 mmol/L (3.5-5.1); Total Bilirubin 0.4 mg/dL (0.2-1.3); Total Protein 5.6 g/dL (6.3-8.2)
[2022-04-25 06:44] LABS: Glucose,Whole Blood 98 mg/dL (70-110)
[2022-04-25 07:00] LABS: Anisocytosis Slight; Basophils % (A) 0 %; Eosinophils # (A) 0.1 k/uL (0-0.7); Eosinophils % (A) 1 %; HCT 24.4 % (39.0-53.0); HGB 7.3 gm/dL (13.0-17.5); Hypochromasia Marked; Lymphocytes # (A) 0.9 k/uL (1.0-4.8); Lymphocytes % (A) 6 %; MCH 24.5 pg (25.0-35.0); MCHC 29.8 g/dL (31.0-37.0); Mean Platelet Volume 9.3; Microcytosis Slight; Monocytes # (A) 0.7 k/uL (0-1.0); Monocytes % (A) 4 %; Neutrophils % (A) 87 %; Platelet Count 458 k/uL (150-450); Poikilocytosis Slight; RBC 2.97 m/uL (4.30-5.90); RDW 19.2 % (11.5-15.5); WBC 14.9 k/uL (3.8-10.6)
[2022-04-25] MEDS: IPRATROPIUM 0.5 MG/2.5 ML NEBU INHALATION SCH ×4 (08:15→21:59)
[2022-04-25] MEDS: ALBUTEROL NEBULIZED 2.5 MG/3 ML INHALATION SCH ×4 (08:15→21:59)
--- NOTE | 2022-04-25 08:42 | XR ---
EXAMINATION TYPE: XR chest 1V portable DATE OF EXAM: 04/25/2022 COMPARISON: 04/22/2022 HISTORY: Shortness of breath TECHNIQUE: Single frontal view of the chest is obtained. FINDINGS: Cardiomegaly, postoperative change, bilateral effusions and infiltrate noted. No sizable p neumothorax. There is mild improvement in the interstitium. Underlying COPD suspected. IMPRESSION: 1. Bilateral infiltrate and pleural effusion stable, however, suspect mild improvement in the degree CHF.
[2022-04-25] MEDS: ACETAMINOPHEN TAB 500 MG TAB PO PRN (09:22)
[2022-04-25] MEDS: HEPARIN SODIUM,PORCINE/PF 5,000 UNIT/0.5 ML SYRINGE SQ SCH ×3 (09:24→23:59)
[2022-04-25] MEDS: ASPIRIN 81 MG PO SCH (09:24)
[2022-04-25] MEDS: TAMSULOSIN 0.4 MG CAP.ER.24H PO SCH (09:24)
[2022-04-25] MEDS: FLUCONAZOLE IN NACL,ISO-OSM 200 MG in SALINE 1 100ML.BAG IVPB SCH (09:24)
[2022-04-25] MEDS: ATORVASTATIN 40 MG TAB PO SCH (09:25)
[2022-04-25] MEDS: METOPROLOL TARTRATE 25 MG TAB PO SCH ×2 (09:25→21:25)
[2022-04-25] MEDS: FAMOTIDINE 20 MG/2 ML VIAL IV SCH (09:25)
[2022-04-25] MEDS: FUROSEMIDE 10 MG/ML 2 ML VIAL IV SCH (09:25)
--- NOTE | 2022-04-25 11:20 | P.PN ---
Subjective Patient is seen for follow-up for acute kidney injury, mostly ATN currently improving. Status post low anterior resection on 04/13/2022 for sigmoid mass and currently with a colostomy. Patient has been transferred out of the ICU He is doing well Maintained on IV Lasix for significant volume overload and severe scrotal edema next No complaints of shortness of breath Serum creatinine staying at about 1.2-1.3 mg/dL which is down from peak of 2.86 Objective - Vital Signs Vital signs: Vital Signs Temp 98.1 F 04/25/22 07:19 Pulse 102 H 04/25/22 07:19 Resp 16 04/25/22 07:19 BP 120/61 04/25/22 07:19 Pulse Ox 93 L 04/25/22 07:19 FiO2 40 04/22/22 08:02 Intake & Output 04/24/22 04/25/22 04/25/22 18:59 06:59 18:59 Intake Total 3082.3 1150 Output Total 1252 705 Balance 1830.3 445 Intake: IV 493.3 120 Fluconazole in NaCl,Iso- 100 Osm 200 mg In Saline 1 100ml.bag @ 100 mls/hr IVPB DAILY [facility] Rx#: [id number] Invasive Line 1 120 Meropenem 1 gm In Sodium 33.3 Chloride 0.9% 100 ml @ 33 .3 mls/hr IVPB Q8HR@0000, 0400,1200 [facility] Rx#: [id number] Mvi, Adult No.4 with Vit 240 120 K 10 ml Trace (Conc-1Ml/ Dose) 1 ml Calcium Gluconate 1 gm Potassium Chloride 20 meq Magnesium Sulfate gm 1 gm In Amino Acid 4.25%-D10w+Lytes*E* 1,000 ml @ 65 mls/hr IV .BY DURATION [facility] Rx#: [id number] Intake, IV Titration 1187 Amount Calcium Gluconate 1 gm 1027 Potassium Chloride 20 meq Magnesium Sulfate gm 1 gm Sodium Chloride 4Meq/ ml Vial 20 meq In Amino Acid 4.25%-D10w+Lytes*E* 1,000 ml @ 65 mls/hr IV . BY DURATION [facility] Rx#: [id number] Mvi, Adult No.4 with Vit 160 K 10 ml Trace (Conc-1Ml/ Dose) 1 ml Calcium Gluconate 1 gm Potassium Chloride 20 meq Magnesium Sulfate gm 1 gm Sodium Chloride 4Meq/ml Vial 20 meq In Amino Acid 4.25%- D10w+Lytes*E* 1,000 ml @ 30 mls/hr IV .BY DURATION [facility] Rx#:[id number] Oral 1402 1030 Output: Urine 752 705 Stool 500 Other: Voiding Method Indwelling Catheter Indwelling Catheter Indwelling Catheter ABP, PAP, CO, CI - Last Documented Arterial Blood Pressure 126/50 - Exam Patient is awake and following commands, comfortable, no acute distress Examination of the heart S1 and S2 Examination the lungs bilateral breath sounds are heard Abdomen is soft Examination lower extremities shows edema 2-3+ bilaterally with significant scrotal edema [employer] exam grossly intact - Labs CBC & Chem 7: 04/25/22 05:43 04/25/22 05:43 Labs: Abnormal Lab Results - Last 24 Hours (Table) 04/24/22 04/24/22 04/24/22 Range/Units 17:05 21:36 23:23 WBC (3.8-10.6) k/uL RBC (4.30-5.90) m/uL Hgb (13.0-17.5) gm/dL Hct (39.0-53.0) % MCH (25.0-35.0) pg MCHC (31.0-37.0) g/dL RDW (11.5-15.5) % Plt Count (150-450) k/uL Neutrophils # (1.3-7.7) k/uL Lymphocytes # (1.0-4.8) k/uL Sodium (137-145) mmol/L BUN (9-20) mg/dL Creatinine (0.66-1.25) mg/dL Glucose (74-99) mg/dL POC Glucose (mg/dL) 117 H 147 H 137 H (70-110) mg/dL Calcium (8.4-10.2) mg/dL Alkaline Phosphatase (38-126) U/L Total Protein (6.3-8.2) g/dL Albumin (3.5-5.0) g/dL 04/25/22 04/25/22 Range/Units 05:43 05:43 WBC 14.9 H (3.8-10.6) k/uL RBC 2.97 L (4.30-5.90) m/uL Hgb 7.3 L (13.0-17.5) gm/dL Hct 24.4 L (39.0-53.0) % MCH 24.5 L (25.0-35.0) pg MCHC 29.8 L (31.0-37.0) g/dL RDW 19.2 H (11.5-15.5) % Plt Count 458 H (150-450) k/uL Neutrophils # 13.0 H (1.3-7.7) k/uL Lymphocytes # 0.9 L (1.0-4.8) k/uL Sodium 134 L (137-145) mmol/L BUN 31 H (9-20) mg/dL Creatinine 1.37 H (0.66-1.25) mg/dL Glucose 68 L (74-99) mg/dL POC Glucose (mg/dL) (70-110) mg/dL Calcium 7.7 L (8.4-10.2) mg/dL Alkaline Phosphatase 172 H (38-126) U/L Total Protein 5.6 L (6.3-8.2) g/dL Albumin 2.7 L (3.5-5.0) g/dL Microbiology - Last 24 Hours (Table) 04/20/22 15:40 Blood Culture - Preliminary Blood No Growth after 96 hours 04/20/22 10:05 Anaerobic Culture - Final Abdomen Anaerobic Gm Negative Bacilli Anaerobic Gm Negative Bacilli#2 Anaerobic Gm Positive Bacill 04/20/22 10:05 Gram Stain - Final Abdomen Wound Culture - Preliminary Enterobacter cloacae Enterobacter cloacae#2 Escherichia coli Enterococcus faecalis Assessment and Plan Assessment: 1. Acute kidney injury secondary to urinary retention and ATN. Creatinine peaked at 2.86 but improved to 1.2-1.3. Good urine output 2. Sigmoid mass and GI bleeding with severe anemia. Status post exploratory la p and colostomy 04/17/2022 3. Ventilator dependent respiratory failure on 40%, extubated 4. Volume overload with significant third spacing and scrotal edema 5. Status post coronary artery bypass graft remote 6. Mild hypokalemia secondary to diuresis 7. Metabolic acidosis resolved currently off bicarb drip. Plan: Continue to diurese pt. increase Lasix to 40 mg every 12 hours as patient is also maintained on TPN Repeat labs in a.m.
[2022-04-25] MEDS: SIMETHICONE 40 MG/0.6 ML DROPS 2,000 MG/30 ML BOTTLE PO SCH ×4 (11:26→21:26)
--- NOTE | 2022-04-25 11:53 | P.PN ---
Subjective Progress Note Date: 04/25/22 This is a 72-year-old male patient was brought into the intensive care unit after having his second surgery on 04/17/2022 which involved expiratory laparotomy, the patient had the surgery for an underlying anastomotic leak. The patient underwent a abdominal washout and takedown of anastomosis and colectomy and colostomy in the left upper quadrant. Estimated blood loss was around 25 mL. Postop, the patient was kept intubated on a mechanical ventilator. He was brought into the intensive care unit. He was quite hypotensive. His CVP was low on the eighth. He will received a total of saline boluses and following that he was started on pressors. Currently norepinephrine is running at 0.24 mcg/kg/m. The patient is intubated on a mechanical ventilator. Is currently on propofol at 45 mcg/kg/m and the patient is currently on assist control mode at a rate of 20, tidal volume of 450, FiO2 40% and a PEEP of 5. Note that overnight, the patient was found to be acidotic. He was given IV bicarb and following that he was started on a bicarbonate infusion which is still running at the rate of 150 mL an hour. Serum bicarb today is up to 20. Blood gas from today showed a pH of 7.38 with episodes of 34 and a pO2 of 120 and this was on FiO2 of 50%. WBC count is at 7.5 with a hemoglobin of 8.4 and a platelet count of 243. He did not fluid balance is positive for liters at least over the past 12 hours. The patient remains on IV Zosyn. He is adequately sedated. His colostomy site is light pink without evidence of any necrosis. The patient has no output in the colostomy bag. Surgical 1 site was inspected. The patient has retention sutures. There is leak of serosanguineous/bloody effusion from the one surface. The patient has a large midabdominal incision extending above and below the umbilicus all the way down to his pelvis. He does have scrotal edema. He does have +1 pitting edema. Orogastric tube is also in place. Ultrasound OG is only 200 over the past 8 hours. Note that this patient has history of coronary artery disease with previous bypass surgery and had a recent stent placement in February 2022. He came into the emergency department for shortness of breath. He was found to be intimate with a hemoglobin of 6.9. Given a unit of packed RBC. His fecal occult blood was positive. He underwent EGD and colonoscopy. EGD showed moderately sized hiatal hernia and colonoscopy showed a circumferential sigmoid mass 28 cm from the anal verge and 5 mm rectal polyp. Based on that, the patient was taken to the operating room on 04/13/2022 and the patient underwent a low anterior resection on 04/13/2022. His course was complicated by development of abdominal distention and worsening shortness of breath. This occurred on postoperative day #4. A CAT scan of the abdomen was done yesterday that showed evidence of a moderate to large amount of free intraperitoneal air consistent with anastomotic leak. There was also moderate bilateral pleural effusions. There was small amount of ascites around the liver. There was large hiatal hernia and by the edema. Chest x-ray from today is showing cardiomegaly, bilateral pleural effusion, is about the pulmonary infiltrates, thoracotomy wires, triple-lumen catheter in his left IJ and adequate positioning of the orogastric tube. There is evidence also of bilateral pleural effusions. On 04/19/2022, the patient remains intubated on a mechanical ventilator. The patient is postop day #2. THE patient had an anastomotic leak following bowel surgery in a patient presented to the intensive care following his surgery intubated on a mechanical ventilator. This morning, the patient is on propofol running at 45 mcg/kg/m. His calm and comfortable and symptoms mechanical ventilator. At the same time, is on assist control mode at a rate of 20, tidal volume of 450, FiO2 of 40% with a PEEP of 5. The blood gas from this morning shows a pH of 7.42 pCO2 of 42 and pO2 of 92. The chest x-ray from today is mychal wing bilateral pleural effusion/consolidation is worse on the right. 82 is around 1.5 cm away from judah. Triple-lumen catheter was also placed in his left IJ. Hemodynamically, the patient is on IV fluids and currently is on bicarb infusion running at the rate of 75 mL an hour. His bicarb can be discontinued as the patient's serum bicarb is up to 25. Sodium is at 137 with a potassium level of 3.[address] Urine output is in order of 150 mL an hour. His overall fluid balance over the past 24 hours has been +3.5 L. In terms of hemodynamic support, the patient is on norepinephrine running at 0.1 mcg/kg/m. He also has vasopressin at physiologic dose at 0.03 units an hour. Cardiac rhythm is sinus. The patient was started on TPN for nutritional support which is running at the rate of 30 mL an hour. He is showing some signs of fluid overload with increase in scrotal edema. The colostomy stoma is viable. The tissue looks healthy. There is some liquidy material collecting in the bag. The abdomen is distended. Surgical wound is open and there is some limited serosanguineous material from the surgical one-sided. Orogastric tube in place. Output from the OG has been in the order of 10-20 mL over the past 24 hours. Patient is calm and comfortable. He is running episodes of fever. His T-max was 102. Blood culture is negative. Intra-abdominal cultures are still pending for now. The 2022, the patient's postop day #3 following his surgery for anastomotic leak, colectomy and diverticular colostomy. On today's evaluation, the patient remains on a mechanical ventilator. He is currently on propofol which is running at 45 mcg/kg/m and his well rested. He remains on a mechanical ventilator. He is on assist control mode at the rate of 20, tidal volume of 450, FiO2 of 40% and PEEP of 5. The chest x-ray from today shows cardiomegaly, ET tube is in a good location, the patient has a triple-lumen cath in the right IJ. There is also evidence of bilateral pleural effusion which is essentially unchanged compared to yesterday and the findings of essentially stable for now. The blood gas shows a pH of 7.48 with a pCO2 of 39 and pO2 of 79. The patient is quite segments on mechanical ventilator. Hemodynamically, the patient is on KVO IV fluids. He did have significant fluid resuscitation. And IV fluids were cut down yesterday. He remains on pressors and norepinephrine is running at the rate of 0.03 mcg/kg/m. As such, his blood pressure has stabilized and he was also taken off the vasopressin. Cardiac rhythm is still sinus. Urine output is adequate for now. The patient was also started on TPN for nutritional support. On today's evaluation, the surgical wound is draining purulent foul-smelling material. The colostomy is viable and there is stool output in the colostomy bag. In terms of cultures, the wound needs to be cultured. The blood culture is negative. The abdominal wound cultures collected intraoperatively are still pending for now. The patient remains on IV Zosyn for now. Blood work shows a dull retrosternal 9 with a hemoglobin of 7.5 and a platelet count of 204. The sodium is at 135, potassium is to be replaced at 2.9 and the patient has a BUN of 22 with a creatinine of 1.36 and his acute kidney injury is also improving. Blood sugars at 202. Patient is on Levemir insulin 25 units twice a day and is also on sliding scale insulin coverage. Blood sugars under adequate control for now. Reevaluated today on 04/21/2022, patient is now postoperative day #4. Patient is status post surgery for an anastomotic leak, colectomy and diverticular colostomy. Remains in the ICU intubated and mechanically ventilated. He is on assist control rate of 20 tidal volume 450 FiO2 40% and PEEP of 5 ABG showed a pO2 of 97 pCO2 of 40 pH of 7.51 as no changes were made in the vent settings. Patient is still requiring norepinephrine at 0.02 mcg/kg/m propofol at 45 mcg/kg/m is also on TPN at 59 mL/h. Patient has good urine output, his ostomy seems to be functional. Chest x-ray continues to show small bilateral pleural effusions, endotracheal tube and catheters are in the proper position. WBC count is 12.2 hemoglobin is 7.7, basic metabolic profile is normal renal profile showed a BUN of 19 and creatinine of 1.34, steadily improving over the last 10 days. Patient is now sedated, and I plan to hold sedation on this patient today, address weaning parameters, and possibly give the patient weaning trial. Reevaluated today on 04/22/2022, patient remains in the ICU, he was extubated yesterday to BiPAP, and he remained overnight. Patient is on 12/6 and 40% FiO2 however after evaluating the patient today I switch him to nasal cannula. Patient is not in any distress. He is arousable, follows very simple instructions. And he is not in any distress his ostomy seems to be functioning he is still receiving TPN at 64 mL per hour and his IV fluid is at KVO. Continues to have good urine output WBC count is 12.4 hemoglobin 7.8 electrolytes are normal renal profile is showing improvement creatinine is down to 1.33. Chest x-ray continues to show small bilateral pleural effusions and mild pulmonary vascular congestion and cardiomegaly Reevaluated today on , remains in the ICU, patient tolerated extubation well for the last 2 days. Off BiPAP, on nasal cannula, O2 saturation is in the mid 90s on 2 L nasal cannula. Patient had low-grade temp last night, 99.6. He is hemodynamically stable, not in any distress, at times noted to be a bit lethargic and confused by the nurse, but on physical examination today, the patient seems to be quite appropriate. WBC count is 13.5 hemoglobin 7.6 basic metabolic profile is normal renal profile showed a creatinine of 1.23, steadily improving. Different cultures from the wound and from the abdomen were noted. Blood cultures have been negative. No chest x-ray was done today, but chest x- ray from yesterday showed small bilateral pleural effusions and mild pulmonary vascular congestion. Patient did receive Lasix yesterday. Reevaluated today on 04/24/2022, patient remains in the ICU, doing fairly well, no major issues overnight. Patient still doing a bit poorly with incentive spirometry, he has been up in the chair, continues to have scrotal edema and that's quite significant continues to have bipedal edema now he is on a maintenance dose of Lasix 20 mg twice a day. His antibiotics have been changed per infectious disease now he is on Merrem and daptomycin as well as Diflucan. Today I am cutting down the TPN to have dose since the patient is already tolerating oral intake. Tomorrow will likely discontinue TPN and go to full diet. Hemoglobin is a bit low today at 6.9, may consider transfusing the patient if the hemoglobin continues to drift down. Baseline has been in the 7.5 range for the last 5 days basic metabolic profile is normal renal profile is normal except for creatinine of 1.26, slightly worse today compared to yesterday and it was 1.23 yesterday. Patient is being followed by nephrology.. No chest x-ray has been done. The patient is seen today 04/25/2022 in follow-up on the regular medical floor. He was transferred out of the intensive care unit yesterday. He was doing quite well. Maintaining good O2 saturations in the 90s on 2 L/m per nasal cannula. Chest x-ray reveals bilateral infiltrate and pleural effusion stable. Slight improvement. He's been afebrile. Hemodynamically stable. He did receive 1 unit of packed red blood cells yesterday. Current hemoglobin 7.3. Blood cultures positive for gram-negative bacilli in the abdominal wound. White count 14.9. Hemoglobin 7.3. Platelets 458. Sodium 134. Potassium 4.6. Bicarb 29. BUN 31. Creatinine 1.27. Glucose 98. He remains on IV diuretics. Currently in a positive balance. Remains on antibiotics in the form of meropenem and daptomycin. Continued on Diflucan. Being nourished with TPN. Tolerating a full liquid diet. He did have some issues with confusion through the night and had pulled off his colostomy bag, pulled off his dressing and packing to his open abdominal wound. Pulled out his IV. Objective - Vital Signs Vital signs: Vital Signs Temp 98.1 F 04/25/22 07:19 Pulse 102 H 04/25/22 07:19 Resp 16 04/25/22 07:19 BP 120/61 04/25/22 07:19 Pulse Ox 93 L 04/25/22 07:19 FiO2 40 04/22/22 08:02 Intake & Output 04/24/22 04/25/22 04/25/22 18:59 06:59 18:59 Intake Total 3082.3 1150 Output Total 1252 705 Balance 1830.3 445 Intake: IV 493.3 120 Fluconazole in NaCl,Iso- 100 Osm 200 mg In Saline 1 100ml.bag @ 100 mls/hr IVPB DAILY [facility] Rx#: [id number] Invasive Line 1 120 Meropenem 1 gm In Sodium 33.3 Chloride 0.9% 100 ml @ 33 .3 mls/hr IVPB Q8HR@0000, 0400,1200 [facility] Rx#: [id number] Mvi, Adult No.4 with Vit 240 120 K 10 ml Trace (Conc-1Ml/ Dose) 1 ml Calcium Gluconate 1 gm Potassium Chloride 20 meq Magnesium Sulfate gm 1 gm In Amino Acid 4.25%-D10w+Lytes*E* 1,000 ml @ 65 mls/hr IV .BY DURATION [facility] Rx#: [id number] Intake, IV Titration 1187 Amount Calcium Gluconate 1 gm 1027 Potassium Chloride 20 meq Magnesium Sulfate gm 1 gm Sodium Chloride 4Meq/ ml Vial 20 meq In Amino Acid 4.25%-D10w+Lytes*E* 1,000 ml @ 65 mls/hr IV . BY DURATION [facility] Rx#: [id number] Mvi, Adult No.4 with Vit 160 K 10 ml Trace (Conc-1Ml/ Dose) 1 ml Calcium Gluconate 1 gm Potassium Chloride 20 meq Magnesium Sulfate gm 1 gm Sodium Chloride 4Meq/ml Vial 20 meq In Amino Acid 4.25%- D10w+Lytes*E* 1,000 ml @ 30 mls/hr IV .BY DURATION [facility] Rx#:[id number] Oral 1402 1030 Output: Urine 752 705 Stool 500 Other: Voiding Method Indwelling Catheter Indwelling Catheter Indwelling Catheter ABP, PAP, CO, CI - Last Documented Arterial Blood Pressure 126/50 - Exam GENERAL EXAM: Alert, 72-year-old male patient, on 2 L nasal cannula, fairly comfortable in no apparent distress. HEAD: Normocephalic. EYES: Normal reaction of pupils, equal size. NOSE: Clear with pink turbinates. THROAT: No erythema or exudates. NECK: No masses, no JVD. Left IJ catheter remains in place CHEST: No chest wall deformity. LUNGS: Equal air entry with few crackles in the posterior bases. CVS: S1 and S2 normal with no audible murmur, regular rhythm. ABDOMEN: Colostomy in the left upper quadrant. The colon tissue is pink and viable. His stool output in the colostomy bag. The patient has a open midabdominal incision with serosanguineous/bloody fluid seeping from the wound surface. No direct tenderness. No rebound tenderness. Positive bowel sounds. Quite significant scrotal edema noted. SPINE: No scoliosis or deformity SKIN: No rashes CENTRAL NERVOUS SYSTEM: No focal deficits, tone is normal in all 4 extremities. EXTREMITIES: There is 1-2+ peripheral edema. No clubbing, no cyanosis. Peripheral pulses are intact. - Labs CBC & Chem 7: 04/25/22 05:43 04/25/22 05:43 Labs: Abnormal Lab Results - Last 24 Hours (Table) 04/24/22 04/24/22 04/24/22 Range/Units 17:05 21:36 23:23 WBC (3.8-10.6) k/uL RBC (4.30-5.90) m/uL Hgb (13.0-17.5) gm/dL Hct (39.0-53.0) % MCH (25.0-35.0) pg MCHC (31.0-37.0) g/dL RDW (11.5-15.5) % Plt Count (150-450) k/uL Neutrophils # (1.3-7.7) k/uL Lymphocytes # (1.0-4.8) k/uL Sodium (137-145) mmol/L BUN (9-20) mg/dL Creatinine (0.66-1.25) mg/dL Glucose (74-99) mg/dL POC Glucose (mg/dL) 117 H 147 H 137 H (70-110) mg/dL Calcium (8.4-10.2) mg/dL Alkaline Phosphatase (38-126) U/L Total Protein (6.3-8.2) g/dL Albumin (3.5-5.0) g/dL 04/25/22 04/25/22 Range/Units 05:43 05:43 WBC 14.9 H (3.8-10.6) k/uL RBC 2.97 L (4.30-5.90) m/uL Hgb 7.3 L (13.0-17.5) gm/dL Hct 24.4 L (39.0-53.0) % MCH 24.5 L (25.0-35.0) pg MCHC 29.8 L (31.0-37.0) g/dL RDW 19.2 H (11.5-15.5) % Plt Count 458 H (150-450) k/uL Neutrophils # 13.0 H (1.3-7.7) k/uL Lymphocytes # 0.9 L (1.0-4.8) k/uL Sodium 134 L (137-145) mmol/L BUN 31 H (9-20) mg/dL Creatinine 1.37 H (0.66-1.25) mg/dL Glucose 68 L (74-99) mg/dL POC Glucose (mg/dL) (70-110) mg/dL Calcium 7.7 L (8.4-10.2) mg/dL Alkaline Phosphatase 172 H (38-126) U/L Total Protein 5.6 L (6.3-8.2) g/dL Albumin 2.7 L (3.5-5.0) g/dL Microbiology - Last 24 Hours (Table) 04/20/22 15:40 Blood Culture - Preliminary Blood No Growth after 96 hours 04/20/22 10:05 Anaerobic Culture - Final Abdomen Anaerobic Gm Negative Bacilli Anaerobic Gm Negative Bacilli#2 Anaerobic Gm Positive Bacill 04/20/22 10:05 Gram Stain - Final Abdomen Wound Culture - Preliminary Enterobacter cloacae Enterobacter cloacae#2 Escherichia coli Enterococcus faecalis Assessment and Plan Assessment: Acute hypoxic respiratory failure secondary to abdominal sepsis and septic shock, patient was extubated uneventfully on 04/21/2022. Currently stable on 2 L nasal cannula Acute surgical abdomen secondary to anastomotic leak following a sigmoid resection and low AP resection from initial surgery performed on 04/13/2022 patient is now postoperative day #5, status post left colectomy and diverting colostomy Septic shock secondary to above secondary to abdominal sepsis, remains on antibiotics. 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 Valvular heart disease with moderate degree of mitral regurgitation and severe tricuspid regurgitation with pulmonary hypertension Underlying COPD Benign prostatic hypertrophy Plan: The patient was seen and evaluated Chest x-ray, medications and labs reviewed Currently stable from the pulmonary and critical care standpoint Continue meropenem, daptomycin, Diflucan Continued on diuretics Titrate the FiO2 as tolerated Encourage increased use of the incentive spirometer Continued on TPN, currently on full liquid diet Recommend a vice president safety We will continue to follow I have personally seen and examined the patient, performed the documentation and the assessment and plan as written. Number of minutes spent on the visit: 10.
[2022-04-25 12:14] LABS: Glucose,Whole Blood 157 mg/dL (70-110)
[2022-04-25] MEDS: INSULIN DETEMIR (LEVEMIR) 100 UNIT/ML SYR SQ SCH ×2 (12:21→21:26)
[2022-04-25] MEDS: DAPTOmycin 500 MG in SODIUM CHLORIDE 0.9% 50 ML IVPB SCH (12:21)
--- NOTE | 2022-04-25 13:01 | P.PN ---
Subjective Progress Note Date: 04/25/22 CHIEF COMPLAINT: Colon mass HISTORY OF PRESENT ILLNESS: Patient had lower anterior resection for sigmoid colon mass on 04/13/2022. He developed anastomotic leak and is now postop day #8 status post exploratory laparotomy, washout of abdomen takedown of anastomosis and colostomy in the left upper quadrant for anastomotic leak secondary to ischemic colon. Patient was transferred out of the ICU yesterday. He did have confusion through the night and this morning. Apparently he pulled out all of his dressing and pulled off his colostomy bag. Patient is currently sitting in bed. Pain is controlled. Denies any nausea vomiting. Ostomy is functioning. Afebrile. WBC is up from 13.8-14.9 hemoglobin is up from 6.9-7.3 platelets are 458 sodium 134 potassium 4.6 creatinine 1.37. Patient denies any breakfast this morning Patient seen and examined with Dr. Carrera PHYSICAL EXAM: VITAL SIGNS: Reviewed. GENERAL: Well-developed in no acute distress. HEENT: No sclera icterus. Extraocular movements grossly intact. Moist buccal mucosa. Head is atraumatic, normocephalic. ABDOMEN: Soft. Incisional dressing intact. Abdominal binder in place Colostomy with stool. Stoma beefy red NEUROLOGIC: Alert and oriented. Cranial nerves II through XII grossly intact. ASSESSMENT: 1. 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 Anastomotic leak secondary to ischemic colon status post exploratory laparotomy, abdominal washout and colostomy placement 3. Anemia due to GI bleed from the colon mass 4. History of coronary disease with stents placed in February 2022 with prior CABG 5. Intra-abdominal sepsis 6. Peritonitis PLAN: -Continue full liquids -Continue TPN until oral intake increases -Continue to monitor -Continue supportive care -Continue antibiotics -Continue local wound care -Increase activity level -GI prophylaxis Pepcid and DVT prophylaxis subcu heparin Physician Senior Oracle Database Administrator note has been reviewed by physician. Signing provider agrees with the documented findings, assessment, and plan of care. Objective - Vital Signs Vital signs: Vital Signs Temp 97.7 F 04/25/22 11:27 Pulse 90 04/25/22 11:59 Resp 16 04/25/22 11:27 BP 114/68 04/25/22 11:27 Pulse Ox 97 04/25/22 11:45 FiO2 2 04/25/22 11:45 Intake & Output 04/24/22 04/25/22 04/25/22 18:59 06:59 18:59 Intake Total 3082.3 1150 Output Total 1252 705 350 Balance 1830.3 445 -350 Intake: IV 493.3 120 Fluconazole in NaCl,Iso- 100 Osm 200 mg In Saline 1 100ml.bag @ 100 mls/hr IVPB DAILY [facility] Rx#: [id number] Invasive Line 1 120 Meropenem 1 gm In Sodium 33.3 Chloride 0.9% 100 ml @ 33 .3 mls/hr IVPB Q8HR@0000, 0400,1200 [facility] Rx#: [id number] Mvi, Adult No.4 with Vit 240 120 K 10 ml Trace (Conc-1Ml/ Dose) 1 ml Calcium Gluconate 1 gm Potassium Chloride 20 meq Magnesium Sulfate gm 1 gm In Amino Acid 4.25%-D10w+Lytes*E* 1,000 ml @ 65 mls/hr IV .BY DURATION [facility] Rx#: [id number] Intake, IV Titration 1187 Amount Calcium Gluconate 1 gm 1027 Potassium Chloride 20 meq Magnesium Sulfate gm 1 gm Sodium Chloride 4Meq/ ml Vial 20 meq In Amino Acid 4.25%-D10w+Lytes*E* 1,000 ml @ 65 mls/hr IV . BY DURATION [facility] Rx#: [id number] Mvi, Adult No.4 with Vit 160 K 10 ml Trace (Conc-1Ml/ Dose) 1 ml Calcium Gluconate 1 gm Potassium Chloride 20 meq Magnesium Sulfate gm 1 gm Sodium Chloride 4Meq/ml Vial 20 meq In Amino Acid 4.25%- D10w+Lytes*E* 1,000 ml @ 30 mls/hr IV .BY DURATION [facility] Rx#:[id number] Oral 1402 1030 Output: Urine 752 705 Stool 500 350 Other: Voiding Method Indwelling Catheter Indwelling Catheter Indwelling Catheter ABP, PAP, CO, CI - Last Documented Arterial Blood Pressure 126/50 - Labs CBC & Chem 7: 04/25/22 05:43 04/25/22 05:43 Labs: Abnormal Lab Results - Last 24 Hours (Table) 04/24/22 04/24/22 04/24/22 Range/Units 17:05 21:36 23:23 WBC (3.8-10.6) k/uL RBC (4.30-5.90) m/uL Hgb (13.0-17.5) gm/dL Hct (39.0-53.0) % MCH (25.0-35.0) pg MCHC (31.0-37.0) g/dL RDW (11.5-15.5) % Plt Count (150-450) k/uL Neutrophils # (1.3-7.7) k/uL Lymphocytes # (1.0-4.8) k/uL Sodium (137-145) mmol/L BUN (9-20) mg/dL Creatinine (0.66-1.25) mg/dL Glucose (74-99) mg/dL POC Glucose (mg/dL) 117 H 147 H 137 H (70-110) mg/dL Calcium (8.4-10.2) mg/dL Alkaline Phosphatase (38-126) U/L Total Protein (6.3-8.2) g/dL Albumin (3.5-5.0) g/dL 04/25/22 04/25/22 04/25/22 Range/Units 05:43 05:43 12:12 WBC 14.9 H (3.8-10.6) k/uL RBC 2.97 L (4.30-5.90) m/uL Hgb 7.3 L (13.0-17.5) gm/dL Hct 24.4 L (39.0-53.0) % MCH 24.5 L (25.0-35.0) pg MCHC 29.8 L (31.0-37.0) g/dL RDW 19.2 H (11.5-15.5) % Plt Count 458 H (150-450) k/uL Neutrophils # 13.0 H (1.3-7.7) k/uL Lymphocytes # 0.9 L (1.0-4.8) k/uL Sodium 134 L (137-145) mmol/L BUN 31 H (9-20) mg/dL Creatinine 1.37 H (0.66-1.25) mg/dL Glucose 68 L (74-99) mg/dL POC Glucose (mg/dL) 157 H (70-110) mg/dL Calcium 7.7 L (8.4-10.2) mg/dL Alkaline Phosphatase 172 H (38-126) U/L Total Protein 5.6 L (6.3-8.2) g/dL Albumin 2.7 L (3.5-5.0) g/dL Microbiology - Last 24 Hours (Table) 04/20/22 15:40 Blood Culture - Preliminary Blood No Growth after 96 hours 04/20/22 10:05 Anaerobic Culture - Final Abdomen Anaerobic Gm Negative Bacilli Anaerobic Gm Negative Bacilli#2 Anaerobic Gm Positive Bacill 04/20/22 10:05 Gram Stain - Final Abdomen Wound Culture - Preliminary Enterobacter cloacae Enterobacter cloacae#2 Escherichia coli Enterococcus faecalis
[2022-04-25 15:25] VITALS: BMI 38.9
--- NOTE | 2022-04-25 15:51 | CDI ---
Documentation Clarification Form Date: 04/25/2022 From: Sarika Mchugh RN, CCDS Admit Date: 04/09/2022 8:32:00 PM Patient Name: Christ Resendiz Visit Number: [id number] Discharge Date: ATTENTION: The Clinical Documentation Specialists (CDI) and [facility] Coding Staff appreciate your assistance in clarifying documentation. Please respond to the clarification below the line at the bottom and electronically sign. The CDI & [facility] Coding staff will review the response and follow-up if needed. Please note: Queries are made part of the Legal Health Record. If you have any questions, please contact the author of this message via ITS. Dr. Casie Bardales A stage II pressure ulcer is documented in the nursing wound care assessment starting on 04/23/22. Additional clarification regarding the stage of the pressure ulcer is requested. History/Risk Factors: CAD, Angina, COPD, Diabetes Mellitus, Former smoker Clinical Indicators: 72-year-old male admitted on 04/09/22 for GI bleed, found to have a near obstructing sigmoid colon mass. 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 Location: Coccyx Wound description: Stage II No drainage Treatment: Turn Q2 hrs. Specialty Bed Skin assessment per protocol Please clarify the stage of coccyx pressure ulcer if known: [ ] Deep tissue injury, coccyx [ ] Stage 1 Pressure Ulcer, coccyx [ x] Stage 2 Pressure Ulcer, coccyx [ ] Stage 3 Pressure Ulcer, coccyx [ ] Unstageable Pressure ulcer, coccyx [ ] Other condition, please specify [ ] Unable to determine [ ] Present on admission [ x ] Not present on admission Clinical Definitions: Stage 1 Pressure Ulcer: intact skin, non-blanching redness of local area Stage 2 Pressure Ulcer: Partial thickness, loss of dermis, pink wound bed Stage 3 Pressure Ulcer: Full thickness tissue loss Stage 4 Pressure Ulcer: Full thickness tissue loss with exposed bone, tendon, or muscle. Unstageable pressure ulcer: Full thickness tissue loss in which the base of the ulcer is covered by slough (yellow, krishnamurthy, livingston, green or brown) and/or eschar (krishnamurthy, brown or black) in the wound bed. (Template Last Revised: April 2020) MTDD
--- NOTE | 2022-04-25 16:21 | P.PN ---
Subjective Progress Note Date: 04/25/22 Principal diagnosis: Intra-abdominal infection Patient is a 72 year old male presented to the hospital with symptomatic anemia did have low anterior resection subsequently did have a anastomosis leak on 04/17/2022 with laparotomy and resection of ischemic portion abdominal culture were disregarded by micro-lab as possible contamination, subsequently did have a fever and more purulent drainage from abdominal incision that prompted with diarrhea infectious disease consultation On today's evaluation that is 04/25/2022, the patient is afebrile, the patient has been moved out of the ICU, the patient is breathing comfortably on 2 L nasal cannula oxygen, the patient denies having any chest pain or shortness of Cough, patient apparently was confused last night and his report his dressing with his hands in his wound currently with a sitter at the bedside Objective - Vital Signs Vital signs: Vital Signs Temp 97.7 F 04/25/22 11:27 Pulse 90 04/25/22 11:59 Resp 16 04/25/22 11:27 BP 114/68 04/25/22 11:27 Pulse Ox 97 04/25/22 11:45 FiO2 2 04/25/22 11:45 Intake & Output 04/24/22 04/25/22 04/25/22 18:59 06:59 18:59 Intake Total 3082.3 1150 Output Total 1252 705 350 Balance 1830.3 445 -350 Intake: IV 493.3 120 Fluconazole in NaCl,Iso- 100 Osm 200 mg In Saline 1 100ml.bag @ 100 mls/hr IVPB DAILY [facility] Rx#: [id number] Invasive Line 1 120 Meropenem 1 gm In Sodium 33.3 Chloride 0.9% 100 ml @ 33 .3 mls/hr IVPB Q8HR@0000, 0400,1200 [facility] Rx#: [id number] Mvi, Adult No.4 with Vit 240 120 K 10 ml Trace (Conc-1Ml/ Dose) 1 ml Calcium Gluconate 1 gm Potassium Chloride 20 meq Magnesium Sulfate gm 1 gm In Amino Acid 4.25%-D10w+Lytes*E* 1,000 ml @ 65 mls/hr IV .BY DURATION [facility] Rx#: [id number] Intake, IV Titration 1187 Amount Calcium Gluconate 1 gm 1027 Potassium Chloride 20 meq Magnesium Sulfate gm 1 gm Sodium Chloride 4Meq/ ml Vial 20 meq In Amino Acid 4.25%-D10w+Lytes*E* 1,000 ml @ 65 mls/hr IV . BY DURATION [facility] Rx#: [id number] Mvi, Adult No.4 with Vit 160 K 10 ml Trace (Conc-1Ml/ Dose) 1 ml Calcium Gluconate 1 gm Potassium Chloride 20 meq Magnesium Sulfate gm 1 gm Sodium Chloride 4Meq/ml Vial 20 meq In Amino Acid 4.25%- D10w+Lytes*E* 1,000 ml @ 30 mls/hr IV .BY DURATION [facility] Rx#:[id number] Oral 1402 1030 Output: Urine 752 705 Stool 500 350 Other: Voiding Method Indwelling Catheter Indwelling Catheter Indwelling Catheter ABP, PAP, CO, CI - Last Documented Arterial Blood Pressure 126/50 - Exam GENERAL DESCRIPTION: An elderly male lying in bed in no distress RESPIRATORY SYSTEM: Unlabored breathing , decreased breath sounds at bases HEART: S1 S2 regular rate and rhythm , ABDOMEN: Soft , no tenderness, abdominal incision is currently dressed EXTREMITIES: No edema feet - Labs CBC & Chem 7: 04/25/22 05:43 04/25/22 05:43 Labs: Abnormal Lab Results - Last 24 Hours (Table) 04/24/22 04/24/22 04/24/22 Range/Units 17:05 21:36 23:23 WBC (3.8-10.6) k/uL RBC (4.30-5.90) m/uL Hgb (13.0-17.5) gm/dL Hct (39.0-53.0) % MCH (25.0-35.0) pg MCHC (31.0-37.0) g/dL RDW (11.5-15.5) % Plt Count (150-450) k/uL Neutrophils # (1.3-7.7) k/uL Lymphocytes # (1.0-4.8) k/uL Sodium (137-145) mmol/L BUN (9-20) mg/dL Creatinine (0.66-1.25) mg/dL Glucose (74-99) mg/dL POC Glucose (mg/dL) 117 H 147 H 137 H (70-110) mg/dL Calcium (8.4-10.2) mg/dL Alkaline Phosphatase (38-126) U/L Total Protein (6.3-8.2) g/dL Albumin (3.5-5.0) g/dL 04/25/22 04/25/22 04/25/22 Range/Units 05:43 05:43 12:12 WBC 14.9 H (3.8-10.6) k/uL RBC 2.97 L (4.30-5.90) m/uL Hgb 7.3 L (13.0-17.5) gm/dL Hct 24.4 L (39.0-53.0) % MCH 24.5 L (25.0-35.0) pg MCHC 29.8 L (31.0-37.0) g/dL RDW 19.2 H (11.5-15.5) % Plt Count 458 H (150-450) k/uL Neutrophils # 13.0 H (1.3-7.7) k/uL Lymphocytes # 0.9 L (1.0-4.8) k/uL Sodium 134 L (137-145) mmol/L BUN 31 H (9-20) mg/dL Creatinine 1.37 H (0.66-1.25) mg/dL Glucose 68 L (74-99) mg/dL POC Glucose (mg/dL) 157 H (70-110) mg/dL Calcium 7.7 L (8.4-10.2) mg/dL Alkaline Phosphatase 172 H (38-126) U/L Total Protein 5.6 L (6.3-8.2) g/dL Albumin 2.7 L (3.5-5.0) g/dL Microbiology - Last 24 Hours (Table) 04/20/22 15:40 Blood Culture - Preliminary Blood No Growth after 96 hours 04/20/22 10:05 Anaerobic Culture - Final Abdomen Anaerobic Gm Negative Bacilli Anaerobic Gm Negative Bacilli#2 Anaerobic Gm Positive Bacill 04/20/22 10:05 Gram Stain - Final Abdomen Wound Culture - Preliminary Enterobacter cloacae Enterobacter cloacae#2 Escherichia coli Enterococcus faecalis Assessment and Plan (1) Abdominal wall abscess Current Visit: Yes Status: Acute Code(s): L02.211 - CUTANEOUS ABSCESS OF ABDOMINAL WALL SNOMED Code(s): 86536553 Plan: 1patient with admission to the hospital with symptomatic anemia 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 2blood culture has been obtained and so far negative repeat abdominal cultures did grew multidrug resistant Enterobacter E. coli and enterococcus 3the patient fever seemed to have resolved however the white count is slightly trending up and will be monitored closely 4-patient to continue with meropenem daptomycin and monitor clinical course closely Time with Patient: Less than 30
[2022-04-25 17:28] LABS: Glucose,Whole Blood 145 mg/dL (70-110)
[2022-04-25] MEDS ORDERED: FAT EMULSION 20% 250 ML IV SCH (21:00)
[2022-04-25] MEDS: MELATONIN 3 MG TABLET PO SCH (21:25)
[2022-04-25] MEDS: FUROSEMIDE 10 MG/ML 4 ML VIAL IV SCH (21:26)
[2022-04-25 23:53] LABS: Glucose,Whole Blood 137 mg/dL (70-110)
[2022-04-26] MEDS: 1: MVI, ADULT NO.4 WITH VIT K 10 ML, TRACE (CONC-1ML/DOSE) 1 ML, CALCIUM GLUCONATE 1 GM, IV SCH ×6 (00:44)
[2022-04-26] MEDS: MEROPENEM 1 GM in SODIUM CHLORIDE 0.9% 100 ML IVPB SCH ×3 (05:10→21:41)
[2022-04-26] MEDS: ACETAMINOPHEN TAB 500 MG TAB PO PRN ×3 (05:14→18:38)
[2022-04-26 05:22] LABS: ALT 32 U/L (4-49); AST 51 U/L (17-59); African American GFR (CKD) 68 (>60 ml/min/1.73 sqM); Albumin 2.6 g/dL (3.5-5.0); Albumin/Globulin Ratio 0.9; Alkaline Phosphatase 140 U/L (38-126); Anion Gap 6 mmol/L; Blood Urea Nitrogen 32 mg/dL (9-20); Calcium 7.7 mg/dL (8.4-10.2); Carbon Dioxide 28 mmol/L (22-30); Chloride 101 mmol/L (98-107); Globulin 2.8 g/dL; Glucose 68 mg/dL (74-99); Magnesium 2.1 mg/dL (1.6-2.3); Non-African American GFR(CKD) 59 (>60 ml/min/1.73 sqM); Phosphorus 3.5 mg/dL (2.5-4.5); Potassium 4.5 mmol/L (3.5-5.1); Sodium 135 mmol/L (137-145); Total Bilirubin 0.4 mg/dL (0.2-1.3); Total Protein 5.4 g/dL (6.3-8.2)
[2022-04-26 05:48] LABS: Glucose,Whole Blood 75 mg/dL (70-110)
[2022-04-26] MEDS: INSULIN ASPART (NovoLOG) 100 UNIT/ML VIAL SQ SCH ×3 (06:19→17:56)
--- NOTE | 2022-04-26 08:26 | P.PN ---
Subjective Patient is seen in follow-up for acute kidney injury. Underwent exploratory laparotomy with washout of abdomen with colostomy placement on 04/17/2022. Nonoliguric. Renal function stable. Receiving TPN. On full liquid diet. Denies chest pain or shortness of breath. Vital signs are stable. General: Resting in bed. HEENT: On nasal cannula. LUNGS: No audible rhonchi or wheezes. HEART: Rate and Rhythm are regular. ABDOMEN: Colostomy noted. EXTREMITITES: 1+ edema. Objective - Vital Signs Vital signs: Vital Signs Temp 97.8 F 04/26/22 07:18 Pulse 95 04/26/22 07:18 Resp 18 04/26/22 07:18 BP 134/82 04/26/22 07:18 Pulse Ox 98 04/26/22 07:18 FiO2 2 04/25/22 11:45 Intake & Output 04/25/22 04/26/22 04/26/22 18:59 06:59 18:59 Intake Total 100 Output Total 1150 1200 Balance -1150 -1100 Weight 103.1 kg Intake: Oral 100 Output: Urine 700 1200 Stool 450 Other: Voiding Method Indwelling Catheter Indwelling Catheter ABP, PAP, CO, CI - Last Documented Arterial Blood Pressure 126/50 - Labs CBC & Chem 7: 04/25/22 05:43 04/26/22 04:43 Labs: Abnormal Lab Results - Last 24 Hours (Table) 04/25/22 04/25/22 04/25/22 Range/Units 12:12 17:27 23:51 Sodium (137-145) mmol/L BUN (9-20) mg/dL Glucose (74-99) mg/dL POC Glucose (mg/dL) 157 H 145 H 137 H (70-110) mg/dL Calcium (8.4-10.2) mg/dL Alkaline Phosphatase (38-126) U/L Total Protein (6.3-8.2) g/dL Albumin (3.5-5.0) g/dL 04/26/22 Range/Units 04:43 Sodium 135 L (137-145) mmol/L BUN 32 H (9-20) mg/dL Glucose 68 L (74-99) mg/dL POC Glucose (mg/dL) (70-110) mg/dL Calcium 7.7 L (8.4-10.2) mg/dL Alkaline Phosphatase 140 H (38-126) U/L Total Protein 5.4 L (6.3-8.2) g/dL Albumin 2.6 L (3.5-5.0) g/dL Microbiology - Last 24 Hours (Table) 04/20/22 15:40 Blood Culture - Preliminary Blood No Growth after 120 hours Assessment and Plan Plan: Assessment: 1. Acute kidney injury secondary to ATN and urinary retention. Creatinine peaked at 2.86 this admission is 1.22 today. No hydronephrosis noted on kidney ultrasound. UA fairly benign. 2. GI bleed status post blood transfusion this admission. Hemoglobin 7.3 yesterday. 3. 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 Status post exploratory laparotomy with washout of abdomen and colostomy 04/17/2022. 4. Volume overload. On IV Lasix. 5. Metabolic acidosis secondary to acute kidney injury and IV fluids. Also GI losses. s/p bicarb drip. Resolved. 6. Diabetes mellitus. 7. Coronary disease status post CABG and cardiac stenting. 8. Urinary retention. Has Bo catheter. On Flomax. Urology following. 9. Hypokalemia from diuresis and hypomagnesemia. Replaced. Improved. 10. Hypomagnesemia from diuresis and GI losses. Replaced. Improved. Plan: Maintain TPN per surgery. Diet to be advanced per surgery of conditions. Maintain IV Lasix. Continue to monitor renal function and urine output. Avoid nephrotoxins.
[2022-04-26] MEDS: FLUCONAZOLE IN NACL,ISO-OSM 200 MG in SALINE 1 100ML.BAG IVPB SCH (08:49)
[2022-04-26] MEDS: FUROSEMIDE 10 MG/ML 4 ML VIAL IV SCH ×2 (08:49→21:42)
[2022-04-26] MEDS: FAMOTIDINE 20 MG/2 ML VIAL IV SCH (08:49)
[2022-04-26] MEDS: METOPROLOL TARTRATE 25 MG TAB PO SCH ×2 (08:49→21:42)
[2022-04-26] MEDS: ASPIRIN 81 MG PO SCH (08:49)
[2022-04-26] MEDS: TAMSULOSIN 0.4 MG CAP.ER.24H PO SCH (08:49)
[2022-04-26] MEDS: ATORVASTATIN 40 MG TAB PO SCH (08:49)
[2022-04-26] MEDS: INSULIN DETEMIR (LEVEMIR) 100 UNIT/ML SYR SQ SCH ×2 (08:50→21:42)
[2022-04-26] MEDS: HEPARIN SODIUM,PORCINE/PF 5,000 UNIT/0.5 ML SYRINGE SQ SCH ×2 (08:50→17:22)
[2022-04-26] MEDS: SIMETHICONE 40 MG/0.6 ML DROPS 2,000 MG/30 ML BOTTLE PO SCH ×4 (09:03→21:50)
[2022-04-26] MEDS: ALBUTEROL NEBULIZED 2.5 MG/3 ML INHALATION SCH ×4 (09:35→19:27)
[2022-04-26] MEDS: IPRATROPIUM 0.5 MG/2.5 ML NEBU INHALATION SCH ×4 (09:38→19:27)
--- NOTE | 2022-04-26 09:53 | P.PN ---
Progress Note - Text Progress Note Date: 04/26/22 The patient appears to still have some confusion. On exam vital signs appear stable. Wound is clean. Colostomy is functioning. Status post low anterior section with subsequent anastomotic leak with conversion to harm procedure. Patient will continue receive supportive care. She'll be observed closely.
[2022-04-26] MEDS: DAPTOmycin 500 MG in SODIUM CHLORIDE 0.9% 50 ML IVPB SCH (11:28)
--- NOTE | 2022-04-26 12:04 | P.PN ---
Subjective Progress Note Date: 04/26/22 This is a 72-year-old male patient was brought into the intensive care unit after having his second surgery on 04/17/2022 which involved expiratory laparotomy, the patient had the surgery for an underlying anastomotic leak. The patient underwent a abdominal washout and takedown of anastomosis and colectomy and colostomy in the left upper quadrant. Estimated blood loss was around 25 mL. Postop, the patient was kept intubated on a mechanical ventilator. He was brought into the intensive care unit. He was quite hypotensive. His CVP was low on the eighth. He will received a total of saline boluses and following that he was started on pressors. Currently norepinephrine is running at 0.24 mcg/kg/m. The patient is intubated on a mechanical ventilator. Is currently on propofol at 45 mcg/kg/m and the patient is currently on assist control mode at a rate of 20, tidal volume of 450, FiO2 40% and a PEEP of 5. Note that overnight, the patient was found to be acidotic. He was given IV bicarb and following that he was started on a bicarbonate infusion which is still running at the rate of 150 mL an hour. Serum bicarb today is up to 20. Blood gas from today showed a pH of 7.38 with episodes of 34 and a pO2 of 120 and this was on FiO2 of 50%. WBC count is at 7.5 with a hemoglobin of 8.4 and a platelet count of 243. He did not fluid balance is positive for liters at least over the past 12 hours. The patient remains on IV Zosyn. He is adequately sedated. His colostomy site is light pink without evidence of any necrosis. The patient has no output in the colostomy bag. Surgical 1 site was inspected. The patient has retention sutures. There is leak of serosanguineous/bloody effusion from the one surface. The patient has a large midabdominal incision extending above and below the umbilicus all the way down to his pelvis. He does have scrotal edema. He does have +1 pitting edema. Orogastric tube is also in place. Ultrasound OG is only 200 over the past 8 hours. Note that this patient has history of coronary artery disease with previous bypass surgery and had a recent stent placement in February 2022. He came into the emergency department for shortness of breath. He was found to be intimate with a hemoglobin of 6.9. Given a unit of packed RBC. His fecal occult blood was positive. He underwent EGD and colonoscopy. EGD showed moderately sized hiatal hernia and colonoscopy showed a circumferential sigmoid mass 28 cm from the anal verge and 5 mm rectal polyp. Based on that, the patient was taken to the operating room on 04/13/2022 and the patient underwent a low anterior resection on 04/13/2022. His course was complicated by development of abdominal distention and worsening shortness of breath. This occurred on postoperative day #4. A CAT scan of the abdomen was done yesterday that showed evidence of a moderate to large amount of free intraperitoneal air consistent with anastomotic leak. There was also moderate bilateral pleural effusions. There was small amount of ascites around the liver. There was large hiatal hernia and by the edema. Chest x-ray from today is showing cardiomegaly, bilateral pleural effusion, is about the pulmonary infiltrates, thoracotomy wires, triple-lumen catheter in his left IJ and adequate positioning of the orogastric tube. There is evidence also of bilateral pleural effusions. On 04/19/2022, the patient remains intubated on a mechanical ventilator. The patient is postop day #2. THE patient had an anastomotic leak following bowel surgery in a patient presented to the intensive care following his surgery intubated on a mechanical ventilator. This morning, the patient is on propofol running at 45 mcg/kg/m. His calm and comfortable and symptoms mechanical ventilator. At the same time, is on assist control mode at a rate of 20, tidal volume of 450, FiO2 of 40% with a PEEP of 5. The blood gas from this morning shows a pH of 7.42 pCO2 of 42 and pO2 of 92. The chest x-ray from today is mychal wing bilateral pleural effusion/consolidation is worse on the right. 82 is around 1.5 cm away from judah. Triple-lumen catheter was also placed in his left IJ. Hemodynamically, the patient is on IV fluids and currently is on bicarb infusion running at the rate of 75 mL an hour. His bicarb can be discontinued as the patient's serum bicarb is up to 25. Sodium is at 137 with a potassium level of 3.[address] Urine output is in order of 150 mL an hour. His overall fluid balance over the past 24 hours has been +3.5 L. In terms of hemodynamic support, the patient is on norepinephrine running at 0.1 mcg/kg/m. He also has vasopressin at physiologic dose at 0.03 units an hour. Cardiac rhythm is sinus. The patient was started on TPN for nutritional support which is running at the rate of 30 mL an hour. He is showing some signs of fluid overload with increase in scrotal edema. The colostomy stoma is viable. The tissue looks healthy. There is some liquidy material collecting in the bag. The abdomen is distended. Surgical wound is open and there is some limited serosanguineous material from the surgical one-sided. Orogastric tube in place. Output from the OG has been in the order of 10-20 mL over the past 24 hours. Patient is calm and comfortable. He is running episodes of fever. His T-max was 102. Blood culture is negative. Intra-abdominal cultures are still pending for now. The 2022, the patient's postop day #3 following his surgery for anastomotic leak, colectomy and diverticular colostomy. On today's evaluation, the patient remains on a mechanical ventilator. He is currently on propofol which is running at 45 mcg/kg/m and his well rested. He remains on a mechanical ventilator. He is on assist control mode at the rate of 20, tidal volume of 450, FiO2 of 40% and PEEP of 5. The chest x-ray from today shows cardiomegaly, ET tube is in a good location, the patient has a triple-lumen cath in the right IJ. There is also evidence of bilateral pleural effusion which is essentially unchanged compared to yesterday and the findings of essentially stable for now. The blood gas shows a pH of 7.48 with a pCO2 of 39 and pO2 of 79. The patient is quite segments on mechanical ventilator. Hemodynamically, the patient is on KVO IV fluids. He did have significant fluid resuscitation. And IV fluids were cut down yesterday. He remains on pressors and norepinephrine is running at the rate of 0.03 mcg/kg/m. As such, his blood pressure has stabilized and he was also taken off the vasopressin. Cardiac rhythm is still sinus. Urine output is adequate for now. The patient was also started on TPN for nutritional support. On today's evaluation, the surgical wound is draining purulent foul-smelling material. The colostomy is viable and there is stool output in the colostomy bag. In terms of cultures, the wound needs to be cultured. The blood culture is negative. The abdominal wound cultures collected intraoperatively are still pending for now. The patient remains on IV Zosyn for now. Blood work shows a dull retrosternal 9 with a hemoglobin of 7.5 and a platelet count of 204. The sodium is at 135, potassium is to be replaced at 2.9 and the patient has a BUN of 22 with a creatinine of 1.36 and his acute kidney injury is also improving. Blood sugars at 202. Patient is on Levemir insulin 25 units twice a day and is also on sliding scale insulin coverage. Blood sugars under adequate control for now. Reevaluated today on 04/21/2022, patient is now postoperative day #4. Patient is status post surgery for an anastomotic leak, colectomy and diverticular colostomy. Remains in the ICU intubated and mechanically ventilated. He is on assist control rate of 20 tidal volume 450 FiO2 40% and PEEP of 5 ABG showed a pO2 of 97 pCO2 of 40 pH of 7.51 as no changes were made in the vent settings. Patient is still requiring norepinephrine at 0.02 mcg/kg/m propofol at 45 mcg/kg/m is also on TPN at 59 mL/h. Patient has good urine output, his ostomy seems to be functional. Chest x-ray continues to show small bilateral pleural effusions, endotracheal tube and catheters are in the proper position. WBC count is 12.2 hemoglobin is 7.7, basic metabolic profile is normal renal profile showed a BUN of 19 and creatinine of 1.34, steadily improving over the last 10 days. Patient is now sedated, and I plan to hold sedation on this patient today, address weaning parameters, and possibly give the patient weaning trial. Reevaluated today on 04/22/2022, patient remains in the ICU, he was extubated yesterday to BiPAP, and he remained overnight. Patient is on 12/6 and 40% FiO2 however after evaluating the patient today I switch him to nasal cannula. Patient is not in any distress. He is arousable, follows very simple instructions. And he is not in any distress his ostomy seems to be functioning he is still receiving TPN at 64 mL per hour and his IV fluid is at KVO. Continues to have good urine output WBC count is 12.4 hemoglobin 7.8 electrolytes are normal renal profile is showing improvement creatinine is down to 1.33. Chest x-ray continues to show small bilateral pleural effusions and mild pulmonary vascular congestion and cardiomegaly Reevaluated today on , remains in the ICU, patient tolerated extubation well for the last 2 days. Off BiPAP, on nasal cannula, O2 saturation is in the mid 90s on 2 L nasal cannula. Patient had low-grade temp last night, 99.6. He is hemodynamically stable, not in any distress, at times noted to be a bit lethargic and confused by the nurse, but on physical examination today, the patient seems to be quite appropriate. WBC count is 13.5 hemoglobin 7.6 basic metabolic profile is normal renal profile showed a creatinine of 1.23, steadily improving. Different cultures from the wound and from the abdomen were noted. Blood cultures have been negative. No chest x-ray was done today, but chest x- ray from yesterday showed small bilateral pleural effusions and mild pulmonary vascular congestion. Patient did receive Lasix yesterday. Reevaluated today on 04/24/2022, patient remains in the ICU, doing fairly well, no major issues overnight. Patient still doing a bit poorly with incentive spirometry, he has been up in the chair, continues to have scrotal edema and that's quite significant continues to have bipedal edema now he is on a maintenance dose of Lasix 20 mg twice a day. His antibiotics have been changed per infectious disease now he is on Merrem and daptomycin as well as Diflucan. Today I am cutting down the TPN to have dose since the patient is already tolerating oral intake. Tomorrow will likely discontinue TPN and go to full diet. Hemoglobin is a bit low today at 6.9, may consider transfusing the patient if the hemoglobin continues to drift down. Baseline has been in the 7.5 range for the last 5 days basic metabolic profile is normal renal profile is normal except for creatinine of 1.26, slightly worse today compared to yesterday and it was 1.23 yesterday. Patient is being followed by nephrology.. No chest x-ray has been done. The patient is seen today 04/25/2022 in follow-up on the regular medical floor. He was transferred out of the intensive care unit yesterday. He was doing quite well. Maintaining good O2 saturations in the 90s on 2 L/m per nasal cannula. Chest x-ray reveals bilateral infiltrate and pleural effusion stable. Slight improvement. He's been afebrile. Hemodynamically stable. He did receive 1 unit of packed red blood cells yesterday. Current hemoglobin 7.3. Blood cultures positive for gram-negative bacilli in the abdominal wound. White count 14.9. Hemoglobin 7.3. Platelets 458. Sodium 134. Potassium 4.6. Bicarb 29. BUN 31. Creatinine 1.27. Glucose 98. He remains on IV diuretics. Currently in a positive balance. Remains on antibiotics in the form of meropenem and daptomycin. Continued on Diflucan. Being nourished with TPN. Tolerating a full liquid diet. He did have some issues with confusion through the night and had pulled off his colostomy bag, pulled off his dressing and packing to his open abdominal wound. Pulled out his IV. The patient is seen today 04/26/2022 in follow-up on the regular medical floor. He is currently sitting up in bed. More awake and alert. Cooperative. cat sitter at the bedside. Denies any worsening shortness of breath, cough or congestion. He is maintaining good O2 saturations in the 90s on 2 L/m per nasal cannula. BUN nourished with TPN at 36 ML's per hour. He is tolerating a full liquid diet. Abdominal wound cultures are positive for Enterobacter cloacae, Enterococcus faecalis and E. coli. Sodium 135. Potassium 4.5. Bicarb 28. BUN 32. Creatinine 1.22. Glucose 68. He is continued on fluconazole, daptomycin and meropenem. Remains on IV diuretics. Currently in a -2.2 L balance Objective - Vital Signs Vital signs: Vital Signs Temp 97.8 F 04/26/22 07:18 Pulse 95 04/26/22 07:18 Resp 18 04/26/22 07:18 BP 134/82 04/26/22 07:18 Pulse Ox 92 L 04/26/22 09:58 FiO2 2 04/25/22 11:45 Intake & Output 04/25/22 04/26/22 04/26/22 18:59 06:59 18:59 Intake Total 100 Output Total 1150 1200 550 Balance -1150 -1100 -550 Weight 103.1 kg Intake: Oral 100 Output: Urine 700 1200 Stool 450 550 Other: Voiding Method Indwelling Catheter Indwelling Catheter Indwelling Catheter ABP, PAP, CO, CI - Last Documented Arterial Blood Pressure 126/50 - Exam GENERAL EXAM: Alert, less confused, 72-year-old male patient, on 2 L nasal cannula, comfortable in no apparent distress. HEAD: Normocephalic. EYES: Normal reaction of pupils, equal size. NOSE: Clear with pink turbinates. THROAT: No erythema or exudates. NECK: No masses, no JVD. Left IJ catheter remains in place CHEST: No chest wall deformity. LUNGS: Equal air entry with few crackles in the posterior bases. CVS: S1 and S2 normal with no audible murmur, regular rhythm. ABDOMEN: Colostomy in the left upper quadrant. The colon tissue is pink and viable. His stool output in the colostomy bag. The patient has a open midabdominal incision with serosanguineous/bloody fluid seeping from the wound surface. No direct tenderness. No rebound tenderness. Positive bowel sounds. Quite significant scrotal edema noted. SPINE: No scoliosis or deformity SKIN: No rashes CENTRAL NERVOUS SYSTEM: No focal deficits, tone is normal in all 4 extremities. EXTREMITIES: There is 1-2+ peripheral edema. No clubbing, no cyanosis. Peripheral pulses are intact. - Labs CBC & Chem 7: 04/25/22 05:43 04/26/22 04:43 Labs: Abnormal Lab Results - Last 24 Hours (Table) 04/25/22 04/25/22 04/25/22 Range/Units 12:12 17:27 23:51 Sodium (137-145) mmol/L BUN (9-20) mg/dL Glucose (74-99) mg/dL POC Glucose (mg/dL) 157 H 145 H 137 H (70-110) mg/dL Calcium (8.4-10.2) mg/dL Alkaline Phosphatase (38-126) U/L Total Protein (6.3-8.2) g/dL Albumin (3.5-5.0) g/dL 04/26/22 Range/Units 04:43 Sodium 135 L (137-145) mmol/L BUN 32 H (9-20) mg/dL Glucose 68 L (74-99) mg/dL POC Glucose (mg/dL) (70-110) mg/dL Calcium 7.7 L (8.4-10.2) mg/dL Alkaline Phosphatase 140 H (38-126) U/L Total Protein 5.4 L (6.3-8.2) g/dL Albumin 2.6 L (3.5-5.0) g/dL Microbiology - Last 24 Hours (Table) 04/20/22 15:40 Blood Culture - Preliminary Blood No Growth after 120 hours Assessment and Plan Assessment: Acute hypoxic respiratory failure secondary to abdominal sepsis and septic shock, patient was extubated uneventfully on 04/21/2022. Currently stable on 2 L nasal cannula Acute surgical abdomen secondary to anastomotic leak following a sigmoid resection and low AP resection from initial surgery performed on 04/13/2022 patient is now postoperative day #6, status post left colectomy and diverting colostomy Septic shock secondary to above secondary to abdominal sepsis, remains on antibiotics. 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 Valvular heart disease with moderate degree of mitral regurgitation and severe tricuspid regurgitation with pulmonary hypertension Underlying COPD Benign prostatic hypertrophy Plan: The patient was seen and evaluated Medications and labs reviewed Continue meropenem, daptomycin, Diflucan Continued on diuretics Titrate the FiO2 as tolerated Encourage increased use of the incentive spirometer Continued on TPN, tolerating a full liquid diet cat sitter at the bedside We will continue to follow I have personally seen and examined the patient, performed the documentation and the assessment and plan as written. Number of minutes spent on the visit: 10.
[2022-04-26 12:21] LABS: Glucose,Whole Blood 95 mg/dL (70-110)
[2022-04-26] MEDS: HYDROcodone/APAP 5-325MG 1 EACH TAB PO PRN ×2 (13:16→17:21)
--- NOTE | 2022-04-26 16:28 | US ---
EXAMINATION TYPE: US venous doppler duplex LE RT DATE OF EXAM: 04/26/2022 3:47 PM COMPARISON: NONE CLINICAL HISTORY: rule out dvt. No redness. Poor historian. SIDE PERFORMED: Right TECHNIQUE: The lower extremity deep venous system is examined utilizing real time linear array sonog ev with graded compression, doppler sonography and color-flow sonography. VESSELS IMAGED: Common Femoral Vein Deep Femoral Vein Greater Saphenous Vein * Femoral Vein Popliteal Vein Small Saphenous Vein * Proximal Calf Veins (* superficial vessels) Right Leg: Negative for DVT IMPRESSION: No evidence of deep vein thrombosis in the right leg.
[2022-04-26 17:09] LABS: Glucose,Whole Blood 167 mg/dL (70-110)
[2022-04-26] MEDS: MELATONIN 3 MG TABLET PO SCH (21:42)
--- NOTE | 2022-04-26 22:30 | P.PN ---
Subjective Progress Note Date: 04/26/22 Principal diagnosis: Intra-abdominal infection Patient is a 72 year old male presented to the hospital with symptomatic anemia did have low anterior resection subsequently did have a anastomosis leak on 04/17/2022 with laparotomy and resection of ischemic portion abdominal culture were disregarded by micro-lab as possible contamination, subsequently did have a fever and more purulent drainage from abdominal incision that prompted with diarrhea infectious disease consultation On today's evaluation that is 04/26/2022, the patient remains to be afebrile, the patient is breathing comfortably on 2 L nasal cannula oxygen, the patient denies having any chest pain or shortness of Cough, patient is more awake and alert today no vomiting or diarrhea has been reported by the nursing staff Objective - Vital Signs Vital signs: Vital Signs Temp 97.8 F 04/26/22 07:18 Pulse 95 04/26/22 07:18 Resp 18 04/26/22 07:18 BP 134/82 04/26/22 07:18 Pulse Ox 98 04/26/22 07:18 FiO2 2 04/25/22 11:45 Intake & Output 04/25/22 04/26/22 04/26/22 18:59 06:59 18:59 Intake Total 100 Output Total 1150 1200 Balance -1150 -1100 Weight 103.1 kg Intake: Oral 100 Output: Urine 700 1200 Stool 450 Other: Voiding Method Indwelling Catheter Indwelling Catheter ABP, PAP, CO, CI - Last Documented Arterial Blood Pressure 126/50 - Exam GENERAL DESCRIPTION: An elderly male lying in bed in no distress RESPIRATORY SYSTEM: Unlabored breathing , decreased breath sounds at bases HEART: S1 S2 regular rate and rhythm , ABDOMEN: Soft , no tenderness, abdominal incision is currently dressed EXTREMITIES: No edema feet - Labs CBC & Chem 7: 04/25/22 05:43 04/26/22 04:43 Labs: Abnormal Lab Results - Last 24 Hours (Table) 04/25/22 04/25/22 04/25/22 Range/Units 12:12 17:27 23:51 Sodium (137-145) mmol/L BUN (9-20) mg/dL Glucose (74-99) mg/dL POC Glucose (mg/dL) 157 H 145 H 137 H (70-110) mg/dL Calcium (8.4-10.2) mg/dL Alkaline Phosphatase (38-126) U/L Total Protein (6.3-8.2) g/dL Albumin (3.5-5.0) g/dL 04/26/22 Range/Units 04:43 Sodium 135 L (137-145) mmol/L BUN 32 H (9-20) mg/dL Glucose 68 L (74-99) mg/dL POC Glucose (mg/dL) (70-110) mg/dL Calcium 7.7 L (8.4-10.2) mg/dL Alkaline Phosphatase 140 H (38-126) U/L Total Protein 5.4 L (6.3-8.2) g/dL Albumin 2.6 L (3.5-5.0) g/dL Microbiology - Last 24 Hours (Table) 04/20/22 15:40 Blood Culture - Preliminary Blood No Growth after 120 hours Assessment and Plan (1) Abdominal wall abscess Current Visit: Yes Status: Acute Code(s): L02.211 - CUTANEOUS ABSCESS OF ABDOMINAL WALL SNOMED Code(s): 78636991 Plan: 1patient with admission to the hospital with symptomatic anemia patient was no ticed to have circumferential colon tumor in this patient who is status post low anterior resection with a clinical course complicated by ischemia of the anastomosis site and leak leading to secondary peritonitis abdominal culture did grew 3 different gram-negative and Enterococcus unfortunately those were not worked up further by the micro lab considering them to be contamination as the patient is spiking fever source and likely secondary to secondary peritonitis abdominal cultures did grew multidrug resistant Enterobacter E. coli and enterococcus 2the patient fever seemed to have resolved however the white count was 14,000 yesterday no CBC has been in today we will check a CBC and CRP with a.m. lab 3-patient to continue with meropenem daptomycin and monitor clinical course closely has multiple questions and concerns were answered on the phone Time with Patient: Less than 30
[2022-04-27 00:01] LABS: Glucose,Whole Blood 246 mg/dL (70-110)
[2022-04-27] MEDS: HEPARIN SODIUM,PORCINE/PF 5,000 UNIT/0.5 ML SYRINGE SQ SCH ×3 (00:49→17:56)
[2022-04-27] MEDS: INSULIN ASPART (NovoLOG) 100 UNIT/ML VIAL SQ SCH ×4 (00:50→18:38)
[2022-04-27] MEDS: HYDROmorphone 1 MG/ML 1 ML SYRINGE IVP PRN (00:52)
[2022-04-27] MEDS: MEROPENEM 1 GM in SODIUM CHLORIDE 0.9% 100 ML IVPB SCH ×3 (05:27→20:23)
[2022-04-27 06:02] LABS: Glucose,Whole Blood 84 mg/dL (70-110)
[2022-04-27] MEDS: 1: MVI, ADULT NO.4 WITH VIT K 10 ML, TRACE (CONC-1ML/DOSE) 1 ML, CALCIUM GLUCONATE 1 GM, IV SCH ×6 (06:11)
[2022-04-27 06:41] LABS: ALT 39 U/L (4-49); AST 45 U/L (17-59); African American GFR (CKD) 67 (>60 ml/min/1.73 sqM); Albumin 2.8 g/dL (3.5-5.0); Albumin/Globulin Ratio 0.9; Alkaline Phosphatase 140 U/L (38-126); Anion Gap 8 mmol/L; Blood Urea Nitrogen 31 mg/dL (9-20); Carbon Dioxide 30 mmol/L (22-30); Chloride 99 mmol/L (98-107); Glucose 81 mg/dL (74-99); Magnesium 2.1 mg/dL (1.6-2.3); Non-African American GFR(CKD) 58 (>60 ml/min/1.73 sqM); Phosphorus 3.8 mg/dL (2.5-4.5); Potassium 4.5 mmol/L (3.5-5.1); Sodium 137 mmol/L (137-145); Total Bilirubin 0.4 mg/dL (0.2-1.3); Total Protein 5.8 g/dL (6.3-8.2)
[2022-04-27 07:25] LABS: C Reactive Protein 14.9 mg/dL (<1.0)
[2022-04-27] MEDS: IPRATROPIUM 0.5 MG/2.5 ML NEBU INHALATION SCH ×4 (08:22→21:35)
[2022-04-27] MEDS: ALBUTEROL NEBULIZED 2.5 MG/3 ML INHALATION SCH ×4 (08:22→21:34)
[2022-04-27] MEDS: FUROSEMIDE 10 MG/ML 4 ML VIAL IV SCH ×2 (08:54→20:23)
[2022-04-27] MEDS: FLUCONAZOLE IN NACL,ISO-OSM 200 MG in SALINE 1 100ML.BAG IVPB SCH (08:54)
[2022-04-27] MEDS: FAMOTIDINE 20 MG/2 ML VIAL IV SCH (08:54)
[2022-04-27] MEDS: METOPROLOL TARTRATE 25 MG TAB PO SCH ×2 (08:55→20:24)
[2022-04-27] MEDS: ASPIRIN 81 MG PO SCH (08:55)
[2022-04-27] MEDS: ATORVASTATIN 40 MG TAB PO SCH (08:55)
[2022-04-27] MEDS: INSULIN DETEMIR (LEVEMIR) 100 UNIT/ML SYR SQ SCH ×2 (09:25→20:23)
--- NOTE | 2022-04-27 09:26 | P.PN ---
Subjective HISTORY OF PRESENT ILLNESS: This is a 72-year-old male patient of Dr. Beto Everett with past medical history of coronary artery disease status post CABG and stent placements, diabetes, dyslipidemia. We have been asked to evaluate the patient for chest pain and shortness of breath. Patient states he was at his PCP office and due to lower extremity edema and shortness of breath he was instructed to go to [facility]. At [facility], patient was found to have a hemoglobin of 6.9. Other lab work done at [place]: BNP 997. Stool for occult blood positive. Troponin 0.034. BUN 33, creatinine 2.3. The CBC 6.8, platelet count 264. Chest x-ray small basilar effusion, hiatal hernia. Patient was transferred to [facility] for further evaluation for GI bleed and is scheduled for upper and lower scopes with Dr. Luther Everett. Patient denies having any chest pain. Shortness of breath and fatigue are continued. He states he is feeling somewhat better. Patient is evaluated in the emergency center. EKG sinus rhythm with nonspecific changes Hemoglobin 7.5, BUN 25 creatinine 1.72, potassium 4.2. Repeat troponin 0.026 and 0.030. Triglycerides 139, cholesterol 154, HDL 26, LDL 99. Cardiac catheterization 02/11/[address] Melton revealed successful stenting of the proximal OM1, distal segment of the SVG to the OM and proximal segment of the SVG to OM. Echocardiogram 2019 EF 45%, mild to moderate MR, [id number] AR Home cardiac medications: Aspirin 81 mg daily, atenolol 50 mg at bedtime, Plavix 75 mg daily, Jardiance 25 mg daily, Imdur 30 mg twice daily, Nitrostat as needed, Crestor 20 mg daily 04/12/2022 The patient was seen and evaluated this morning. He underwent yesterday an EGD and that came in to be unremarkable and, which revealed a colon mass and biopsy was taken. Also subsequently underwent a computed tomography scan of the abdomen and pelvis for further investigation. Clinically he remains stable. He stated that the shortness of breath has been stable. No blood work as of yet for today. Hemodynamically he is stable. We still holding antiplatelet at this point. 2022 The patient was seen and evaluated this morning. He is stable from a cardiovascular standpoint of view in terms of chest pain or chest discomfort or shortness of breath. He is hemodynamically stable as well. The computed tomography scan revealed a colon mass and he is in process of having surgery later on today. He is maintaining normal sinus mechanism. Currently he is on beta taylor as well as he is on statin. Antiplatelet continues to be on hold because of the GI bleeding and also because of the surgery later on today. The echo revealed preserved biventricular systolic function was evidence of severe pulmonary hypertension and moderate to severe tricuspid regurgitation. 04/14/2022 Patient examined this morning at the bedside. Patient is status post low anterior resection. Postop day #1. Patient's aspirin and Plavix remain on hold. Patient denies chest pain or pressure. He denies shortness of breath. Vital signs are stable. Echocardiogram completed revealing ejection fraction 50-55%. 04/15/2022 Patient examined this morning at the beside. Patient denies chest pain or pressure. Denies SOB. Vital signs are stable. Patient developed issues with urinary retention overnight. Urology is following.Creatinine worse today at 2.86, up from 2.0 04/27 Patient had surgery for anastomotic leak and has had slow recovery. He has been on TPN. He has little appetite. He was previously in ICU and transferred to fifth floor. He remains on antibiotics for surgical site infection. Blood pressures remain borderline however has been receiving Lasix as well as his metoprolol. Cardiology was reconsult it secondary to runs of ventricular tachycardia. He has been having rare runs of 5-7 beat runs of wide complex tachycardia at approximately 120-1 50 bpm. May be ventricular tachycardia versus SVT with the parents the. He states overall he has been doing well. Denies any chest pain or pressure. Denies any shortness breath. Does have generalized anasarca. Was pulling at lines previously and has a 1:1 however more alert today. PHYSICAL EXAM: VITAL SIGNS: Reviewed. GENERAL: Well-developed in no acute distress, chronically ill appeaing. NECK: Supple. No JVD or thyromegaly LUNGS: Respirations even and unlabored. Lungs essentially clear to auscultation bilaterally. HEART: Regular rate and rhythm. S1 and S2 heard. EXTREMITIES: Normal range of motion. No clubbing or cyanosis. Peripheral pulses intact. Generalized 1+ lower extremity edema ASSESSMENT: Wide complex tachycardia, brief 5-7 beat runs likely nonstustained VT, asymptomatic Acute blood loss anemia Sigmoid colon mass, status post low anterior resection with anastamotic leak Acute kidney injury, worsened by urinary retention Coronary artery disease with previous CABG and recent stenting in February 2022 Hyperlipidemia Diabetes PLAN: Patient with asymptomatic nonsustained ventricular tachycardia. Not having any significant angina-type symptoms. He is volume overloaded related to his anasarca, protein calorie malnutrition and is receiving IV Lasix. Continue with beta taylor for ventricular tachycardia. Continue with aspirin and Lasix as needed. Maintain potassium at 4.0 and magnesium at 2.0. No further recommendations from a cardiology standpoint. Please call with any questions. Objective - Vital Signs Vital signs: Vital Signs Temp 98.2 F 04/27/22 06:57 Pulse 100 04/27/22 08:23 Resp 18 04/27/22 06:57 BP 91/56 04/27/22 06:57 Pulse Ox 99 04/27/22 08:23 FiO2 2 04/25/22 11:45 Intake & Output 04/26/22 04/27/22 04/27/22 18:59 06:59 18:59 Output Total 2350 1200 Balance -2350 -1200 Output: Urine 1050 950 Stool 1300 250 Other: Voiding Method Indwelling Catheter Indwelling Catheter ABP, PAP, CO, CI - Last Documented Arterial Blood Pressure 126/50 - Labs CBC & Chem 7: 04/25/22 05:43 04/27/22 05:51 Labs: Abnormal Lab Results - Last 24 Hours (Table) 04/26/22 04/26/22 04/27/22 Range/Units 17:08 23:51 05:51 BUN 31 H (9-20) mg/dL POC Glucose (mg/dL) 167 H 246 H (70-110) mg/dL Calcium 8.0 L (8.4-10.2) mg/dL Alkaline Phosphatase 140 H (38-126) U/L C-Reactive Protein 14.9 H (<1.0) mg/dL Total Protein 5.8 L (6.3-8.2) g/dL Albumin 2.8 L (3.5-5.0) g/dL Microbiology - Last 24 Hours (Table) 04/20/22 15:40 Blood Culture - Final Blood No Growth after 144 hours
[2022-04-27] MEDS: SIMETHICONE 40 MG/0.6 ML DROPS 2,000 MG/30 ML BOTTLE PO SCH ×4 (10:07→22:15)
[2022-04-27] MEDS: TAMSULOSIN 0.4 MG CAP.ER.24H PO SCH (10:07)
--- NOTE | 2022-04-27 10:41 | P.PN ---
Subjective Patient is seen in follow-up for acute kidney injury. Underwent exploratory laparotomy with washout of abdomen with colostomy placement on 04/17/2022. Nonoliguric. Renal function stable. Receiving TPN. On full liquid diet. Denies chest pain or shortness of breath. No active complaints. Sitter at bedside as was confused yesterday. Vital signs are stable. General: Resting in bed. HEENT: On nasal cannula. LUNGS: No audible rhonchi or wheezes. HEART: Rate and Rhythm are regular. ABDOMEN: Colostomy noted. EXTREMITITES: 1+ edema. Objective - Vital Signs Vital signs: Vital Signs Temp 98.2 F 04/27/22 06:57 Pulse 100 04/27/22 08:23 Resp 18 04/27/22 06:57 BP 91/56 04/27/22 06:57 Pulse Ox 99 04/27/22 08:23 FiO2 2 04/25/22 11:45 Intake & Output 04/26/22 04/27/22 04/27/22 18:59 06:59 18:59 Output Total 2350 1200 Balance -2350 -1200 Output: Urine 1050 950 Stool 1300 250 Other: Voiding Method Indwelling Catheter Indwelling Catheter Indwelling Catheter ABP, PAP, CO, CI - Last Documented Arterial Blood Pressure 126/50 - Labs CBC & Chem 7: 04/25/22 05:43 04/27/22 05:51 Labs: Abnormal Lab Results - Last 24 Hours (Table) 04/26/22 04/26/22 04/27/22 Range/Units 17:08 23:51 05:51 BUN 31 H (9-20) mg/dL POC Glucose (mg/dL) 167 H 246 H (70-110) mg/dL Calcium 8.0 L (8.4-10.2) mg/dL Alkaline Phosphatase 140 H (38-126) U/L C-Reactive Protein 14.9 H (<1.0) mg/dL Total Protein 5.8 L (6.3-8.2) g/dL Albumin 2.8 L (3.5-5.0) g/dL Microbiology - Last 24 Hours (Table) 04/20/22 15:40 Blood Culture - Final Blood No Growth after 144 hours Assessment and Plan Plan: Assessment: 1. Acute kidney injury secondary to ATN and urinary retention. Creatinine peaked at 2.86 this admission is 1.25 today. No hydronephrosis noted on kidney ultrasound. UA fairly benign. 2. GI bleed status post blood transfusion this admission. Hemoglobin 7.3 04/25/22. 3. 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 Status post exploratory laparotomy with washout of abdomen and colostomy 04/17/2022. 4. Volume overload. On IV Lasix. 5. Metabolic acidosis secondary to acute kidney injury and IV fluids. Also GI losses. s/p bicarb drip. Resolved. 6. Diabetes mellitus. 7. Coronary disease status post CABG and cardiac stenting. 8. Urinary retention. Has Bo catheter. On Flomax. Urology following. 9. Hypokalemia from diuresis and hypomagnesemia. Replaced. Improved. 10. Hypomagnesemia from diuresis and GI losses. Replaced. Improved. Plan: Maintain TPN per surgery. Diet to be advanced per surgery of conditions. Maintain IV Lasix. Continue to monitor renal function and urine output. Avoid nephrotoxins. Add midodrine. Hold for systolic blood pressure greater than 110.
[2022-04-27 10:52] LABS: Basophils # (A) 0.04 X 10*3/uL (0.00-0.10); Basophils % (A) 0.3 %; Eosinophils # (A) 0.01 X 10*3/uL (0.04-0.35); Eosinophils % (A) 0.1 %; Immature Grans, Automated 0.9 %; Lymphocytes # (A) 1.04 X 10*3/uL (0.90-5.00); Monocytes # (A) 0.93 X 10*3/uL (0.20-1.00); Monocytes % (A) 6.3 %; NRBC Per 100 WBC 0 /100 WBCS (0.0-0.0); Neutrophils # (A) 12.61 X 10*3/uL (1.80-7.70); Neutrophils % (A) 85.4 %
[2022-04-27 10:53] LABS: HCT 24.5 % (39.6-50.0); HGB 6.8 g/dL (13.0-17.0); Hypochromasia (M) 2+; MCH 23.8 pg (27.0-32.0); MCHC 27.8 g/dL (32.0-37.0); MCV 85.7 fL (80.0-97.0); Mean Platelet Volume 11.7 fL (9.5-12.2); Platelet Count 513 X 10*3/uL (140-440); RBC 2.86 X 10*6/uL (4.40-5.60); RDW 21.6 % (11.5-14.5); Rouleaux PRESENT; WBC 14.77 X 10*3/uL (4.50-10.00)
[2022-04-27 11:19] LABS: Glucose,Whole Blood 168 mg/dL (70-110)
--- NOTE | 2022-04-27 11:19 | P.PN ---
Progress Note - Text Progress Note Date: 04/27/22 Patient feels better today. He is more alert. He denies any significant abdominal pain. On exam vitals are stable. Abdomen soft. Colostomy function. Wound is clean. Patient will have his Bo catheter today. He will have his diet advanced.
[2022-04-27] MEDS: ACETAMINOPHEN TAB 500 MG TAB PO PRN (12:18)
[2022-04-27] MEDS: MIDODRINE 5 MG TAB PO SCH ×2 (12:18→18:34)
--- NOTE | 2022-04-27 13:08 | P.PN ---
Subjective Progress Note Date: 04/27/22 This is a 72-year-old male patient was brought into the intensive care unit after having his second surgery on 04/17/2022 which involved expiratory laparotomy, the patient had the surgery for an underlying anastomotic leak. The patient underwent a abdominal washout and takedown of anastomosis and colectomy and colostomy in the left upper quadrant. Estimated blood loss was around 25 mL. Postop, the patient was kept intubated on a mechanical ventilator. He was brought into the intensive care unit. He was quite hypotensive. His CVP was low on the eighth. He will received a total of saline boluses and following that he was started on pressors. Currently norepinephrine is running at 0.24 mcg/kg/m. The patient is intubated on a mechanical ventilator. Is currently on propofol at 45 mcg/kg/m and the patient is currently on assist control mode at a rate of 20, tidal volume of 450, FiO2 40% and a PEEP of 5. Note that overnight, the patient was found to be acidotic. He was given IV bicarb and following that he was started on a bicarbonate infusion which is still running at the rate of 150 mL an hour. Serum bicarb today is up to 20. Blood gas from today showed a pH of 7.38 with episodes of 34 and a pO2 of 120 and this was on FiO2 of 50%. WBC count is at 7.5 with a hemoglobin of 8.4 and a platelet count of 243. He did not fluid balance is positive for liters at least over the past 12 hours. The patient remains on IV Zosyn. He is adequately sedated. His colostomy site is light pink without evidence of any necrosis. The patient has no output in the colostomy bag. Surgical 1 site was inspected. The patient has retention sutures. There is leak of serosanguineous/bloody effusion from the one surface. The patient has a large midabdominal incision extending above and below the umbilicus all the way down to his pelvis. He does have scrotal edema. He does have +1 pitting edema. Orogastric tube is also in place. Ultrasound OG is only 200 over the past 8 hours. Note that this patient has history of coronary artery disease with previous bypass surgery and had a recent stent placement in February 2022. He came into the emergency department for shortness of breath. He was found to be intimate with a hemoglobin of 6.9. Given a unit of packed RBC. His fecal occult blood was positive. He underwent EGD and colonoscopy. EGD showed moderately sized hiatal hernia and colonoscopy showed a circumferential sigmoid mass 28 cm from the anal verge and 5 mm rectal polyp. Based on that, the patient was taken to the operating room on 04/13/2022 and the patient underwent a low anterior resection on 04/13/2022. His course was complicated by development of abdominal distention and worsening shortness of breath. This occurred on postoperative day #4. A CAT scan of the abdomen was done yesterday that showed evidence of a moderate to large amount of free intraperitoneal air consistent with anastomotic leak. There was also moderate bilateral pleural effusions. There was small amount of ascites around the liver. There was large hiatal hernia and by the edema. Chest x-ray from today is showing cardiomegaly, bilateral pleural effusion, is about the pulmonary infiltrates, thoracotomy wires, triple-lumen catheter in his left IJ and adequate positioning of the orogastric tube. There is evidence also of bilateral pleural effusions. On 04/19/2022, the patient remains intubated on a mechanical ventilator. The patient is postop day #2. THE patient had an anastomotic leak following bowel surgery in a patient presented to the intensive care following his surgery intubated on a mechanical ventilator. This morning, the patient is on propofol running at 45 mcg/kg/m. His calm and comfortable and symptoms mechanical ventilator. At the same time, is on assist control mode at a rate of 20, tidal volume of 450, FiO2 of 40% with a PEEP of 5. The blood gas from this morning shows a pH of 7.42 pCO2 of 42 and pO2 of 92. The chest x-ray from today is mychal wing bilateral pleural effusion/consolidation is worse on the right. 82 is around 1.5 cm away from judah. Triple-lumen catheter was also placed in his left IJ. Hemodynamically, the patient is on IV fluids and currently is on bicarb infusion running at the rate of 75 mL an hour. His bicarb can be discontinued as the patient's serum bicarb is up to 25. Sodium is at 137 with a potassium level of 3.[address] Urine output is in order of 150 mL an hour. His overall fluid balance over the past 24 hours has been +3.5 L. In terms of hemodynamic support, the patient is on norepinephrine running at 0.1 mcg/kg/m. He also has vasopressin at physiologic dose at 0.03 units an hour. Cardiac rhythm is sinus. The patient was started on TPN for nutritional support which is running at the rate of 30 mL an hour. He is showing some signs of fluid overload with increase in scrotal edema. The colostomy stoma is viable. The tissue looks healthy. There is some liquidy material collecting in the bag. The abdomen is distended. Surgical wound is open and there is some limited serosanguineous material from the surgical one-sided. Orogastric tube in place. Output from the OG has been in the order of 10-20 mL over the past 24 hours. Patient is calm and comfortable. He is running episodes of fever. His T-max was 102. Blood culture is negative. Intra-abdominal cultures are still pending for now. The 2022, the patient's postop day #3 following his surgery for anastomotic leak, colectomy and diverticular colostomy. On today's evaluation, the patient remains on a mechanical ventilator. He is currently on propofol which is running at 45 mcg/kg/m and his well rested. He remains on a mechanical ventilator. He is on assist control mode at the rate of 20, tidal volume of 450, FiO2 of 40% and PEEP of 5. The chest x-ray from today shows cardiomegaly, ET tube is in a good location, the patient has a triple-lumen cath in the right IJ. There is also evidence of bilateral pleural effusion which is essentially unchanged compared to yesterday and the findings of essentially stable for now. The blood gas shows a pH of 7.48 with a pCO2 of 39 and pO2 of 79. The patient is quite segments on mechanical ventilator. Hemodynamically, the patient is on KVO IV fluids. He did have significant fluid resuscitation. And IV fluids were cut down yesterday. He remains on pressors and norepinephrine is running at the rate of 0.03 mcg/kg/m. As such, his blood pressure has stabilized and he was also taken off the vasopressin. Cardiac rhythm is still sinus. Urine output is adequate for now. The patient was also started on TPN for nutritional support. On today's evaluation, the surgical wound is draining purulent foul-smelling material. The colostomy is viable and there is stool output in the colostomy bag. In terms of cultures, the wound needs to be cultured. The blood culture is negative. The abdominal wound cultures collected intraoperatively are still pending for now. The patient remains on IV Zosyn for now. Blood work shows a dull retrosternal 9 with a hemoglobin of 7.5 and a platelet count of 204. The sodium is at 135, potassium is to be replaced at 2.9 and the patient has a BUN of 22 with a creatinine of 1.36 and his acute kidney injury is also improving. Blood sugars at 202. Patient is on Levemir insulin 25 units twice a day and is also on sliding scale insulin coverage. Blood sugars under adequate control for now. Reevaluated today on 04/21/2022, patient is now postoperative day #4. Patient is status post surgery for an anastomotic leak, colectomy and diverticular colostomy. Remains in the ICU intubated and mechanically ventilated. He is on assist control rate of 20 tidal volume 450 FiO2 40% and PEEP of 5 ABG showed a pO2 of 97 pCO2 of 40 pH of 7.51 as no changes were made in the vent settings. Patient is still requiring norepinephrine at 0.02 mcg/kg/m propofol at 45 mcg/kg/m is also on TPN at 59 mL/h. Patient has good urine output, his ostomy seems to be functional. Chest x-ray continues to show small bilateral pleural effusions, endotracheal tube and catheters are in the proper position. WBC count is 12.2 hemoglobin is 7.7, basic metabolic profile is normal renal profile showed a BUN of 19 and creatinine of 1.34, steadily improving over the last 10 days. Patient is now sedated, and I plan to hold sedation on this patient today, address weaning parameters, and possibly give the patient weaning trial. Reevaluated today on 04/22/2022, patient remains in the ICU, he was extubated yesterday to BiPAP, and he remained overnight. Patient is on 12/6 and 40% FiO2 however after evaluating the patient today I switch him to nasal cannula. Patient is not in any distress. He is arousable, follows very simple instructions. And he is not in any distress his ostomy seems to be functioning he is still receiving TPN at 64 mL per hour and his IV fluid is at KVO. Continues to have good urine output WBC count is 12.4 hemoglobin 7.8 electrolytes are normal renal profile is showing improvement creatinine is down to 1.33. Chest x-ray continues to show small bilateral pleural effusions and mild pulmonary vascular congestion and cardiomegaly Reevaluated today on , remains in the ICU, patient tolerated extubation well for the last 2 days. Off BiPAP, on nasal cannula, O2 saturation is in the mid 90s on 2 L nasal cannula. Patient had low-grade temp last night, 99.6. He is hemodynamically stable, not in any distress, at times noted to be a bit lethargic and confused by the nurse, but on physical examination today, the patient seems to be quite appropriate. WBC count is 13.5 hemoglobin 7.6 basic metabolic profile is normal renal profile showed a creatinine of 1.23, steadily improving. Different cultures from the wound and from the abdomen were noted. Blood cultures have been negative. No chest x-ray was done today, but chest x- ray from yesterday showed small bilateral pleural effusions and mild pulmonary vascular congestion. Patient did receive Lasix yesterday. Reevaluated today on 04/24/2022, patient remains in the ICU, doing fairly well, no major issues overnight. Patient still doing a bit poorly with incentive spirometry, he has been up in the chair, continues to have scrotal edema and that's quite significant continues to have bipedal edema now he is on a maintenance dose of Lasix 20 mg twice a day. His antibiotics have been changed per infectious disease now he is on Merrem and daptomycin as well as Diflucan. Today I am cutting down the TPN to have dose since the patient is already tolerating oral intake. Tomorrow will likely discontinue TPN and go to full diet. Hemoglobin is a bit low today at 6.9, may consider transfusing the patient if the hemoglobin continues to drift down. Baseline has been in the 7.5 range for the last 5 days basic metabolic profile is normal renal profile is normal except for creatinine of 1.26, slightly worse today compared to yesterday and it was 1.23 yesterday. Patient is being followed by nephrology.. No chest x-ray has been done. The patient is seen today 04/25/2022 in follow-up on the regular medical floor. He was transferred out of the intensive care unit yesterday. He was doing quite well. Maintaining good O2 saturations in the 90s on 2 L/m per nasal cannula. Chest x-ray reveals bilateral infiltrate and pleural effusion stable. Slight improvement. He's been afebrile. Hemodynamically stable. He did receive 1 unit of packed red blood cells yesterday. Current hemoglobin 7.3. Blood cultures positive for gram-negative bacilli in the abdominal wound. White count 14.9. Hemoglobin 7.3. Platelets 458. Sodium 134. Potassium 4.6. Bicarb 29. BUN 31. Creatinine 1.27. Glucose 98. He remains on IV diuretics. Currently in a positive balance. Remains on antibiotics in the form of meropenem and daptomycin. Continued on Diflucan. Being nourished with TPN. Tolerating a full liquid diet. He did have some issues with confusion through the night and had pulled off his colostomy bag, pulled off his dressing and packing to his open abdominal wound. Pulled out his IV. The patient is seen today 04/26/2022 in follow-up on the regular medical floor. He is currently sitting up in bed. More awake and alert. Cooperative. before school babysitter at the bedside. Denies any worsening shortness of breath, cough or congestion. He is maintaining good O2 saturations in the 90s on 2 L/m per nasal cannula. BUN nourished with TPN at 36 ML's per hour. He is tolerating a full liquid diet. Abdominal wound cultures are positive for Enterobacter cloacae, Enterococcus faecalis and E. coli. Sodium 135. Potassium 4.5. Bicarb 28. BUN 32. Creatinine 1.22. Glucose 68. He is continued on fluconazole, daptomycin and meropenem. Remains on IV diuretics. Currently in a -2.2 L balance The patient is seen today 04/27/2022 in follow-up on the regular medical floor. He is awake and alert in no acute distress. Oriented 2. before school babysitter at the bedside. No worsening shortness of breath, cough or congestion. Maintaining O2 saturations in the 90s on room air. Recurrent fever 100.8. Remains on meropenem, Diflucan. Heparin for DVT prophylaxis. Nutritional support with TPN at 30 MLS per hour. Tolerating a clear liquid diet being advanced to full liquid per surgical services. White count 14.7. Hemoglobin 6.8. Platelets 513. Sodium 137. Potassium 4.5. Bicarb 30. BUN 31. Creatinine 1.25. Glucose 168. Objective - Vital Signs Vital signs: Vital Signs Temp 100.8 F H 04/27/22 12:04 Pulse 89 04/27/22 12:04 Resp 18 04/27/22 12:04 BP 98/60 04/27/22 12:04 Pulse Ox 92 L 04/27/22 12:04 FiO2 2 04/25/22 11:45 Intake & Output 04/26/22 04/27/22 04/27/22 18:59 06:59 18:59 Output Total 2350 1200 700 Balance -2350 -1200 -700 Output: Urine 1050 950 700 Stool 1300 250 Other: Voiding Method Indwelling Catheter Indwelling Catheter Indwelling Catheter ABP, PAP, CO, CI - Last Documented Arterial Blood Pressure 126/50 - Exam GENERAL EXAM: Alert, less confused, 72-year-old male patient, on room air, comfortable in no apparent distress. HEAD: Normocephalic. EYES: Normal reaction of pupils, equal size. NOSE: Clear with pink turbinates. THROAT: No erythema or exudates. NECK: No masses, no JVD. Left IJ catheter remains in place CHEST: No chest wall deformity. LUNGS: Equal air entry with few crackles in the posterior bases. CVS: S1 and S2 normal with no audible murmur, regular rhythm. ABDOMEN: Colostomy in the left upper quadrant. The colon tissue is pink and viable. His stool output in the colostomy bag. The patient has a open midabdom inal incision with serosanguineous/bloody fluid seeping from the wound surface. No direct tenderness. No rebound tenderness. Positive bowel sounds. Quite significant scrotal edema noted. SPINE: No scoliosis or deformity SKIN: No rashes CENTRAL NERVOUS SYSTEM: No focal deficits, tone is normal in all 4 extremities. EXTREMITIES: There is 1-2+ peripheral edema. No clubbing, no cyanosis. Peripheral pulses are intact. - Labs CBC & Chem 7: 04/27/22 05:51 04/27/22 05:51 Labs: Abnormal Lab Results - Last 24 Hours (Table) 04/26/22 04/26/22 04/27/22 Range/Units 17:08 23:51 05:51 WBC (4.50-10.00) X 10*3/uL RBC (4.40-5.60) X 10*6/uL Hgb (13.0-17.0) g/dL Hct (39.6-50.0) % MCH (27.0-32.0) pg MCHC (32.0-37.0) g/dL RDW (11.5-14.5) % Plt Count (140-440) X 10*3/uL Plt Count Comment Immature Gran # (0.00-0.04) X 10*3/uL Neutrophils # (1.80-7.70) X 10*3/uL Eosinophils # (0.04-0.35) X 10*3/uL BUN 31 H (9-20) mg/dL POC Glucose (mg/dL) 167 H 246 H (70-110) mg/dL Calcium 8.0 L (8.4-10.2) mg/dL Alkaline Phosphatase 140 H (38-126) U/L C-Reactive Protein 14.9 H (<1.0) mg/dL Total Protein 5.8 L (6.3-8.2) g/dL Albumin 2.8 L (3.5-5.0) g/dL 04/27/22 04/27/22 Range/Units 05:51 11:18 WBC 14.77 H (4.50-10.00) X 10*3/uL RBC 2.86 L (4.40-5.60) X 10*6/uL Hgb 6.8 L* (13.0-17.0) g/dL Hct 24.5 L (39.6-50.0) % MCH 23.8 L (27.0-32.0) pg MCHC 27.8 L (32.0-37.0) g/dL RDW 21.6 H (11.5-14.5) % Plt Count 513 H (140-440) X 10*3/uL Plt Count Comment INCREASED A Immature Gran # 0.14 H (0.00-0.04) X 10*3/uL Neutrophils # 12.61 H (1.80-7.70) X 10*3/uL Eosinophils # 0.01 L (0.04-0.35) X 10*3/uL BUN (9-20) mg/dL POC Glucose (mg/dL) 168 H (70-110) mg/dL Calcium (8.4-10.2) mg/dL Alkaline Phosphatase (38-126) U/L C-Reactive Protein (<1.0) mg/dL Total Protein (6.3-8.2) g/dL Albumin (3.5-5.0) g/dL Microbiology - Last 24 Hours (Table) 04/20/22 15:40 Blood Culture - Final Blood No Growth after 144 hours Assessment and Plan Assessment: Acute hypoxic respiratory failure secondary to abdominal sepsis and septic shock, patient was extubated uneventfully on 04/21/2022. Currently stable on room air Acute surgical abdomen secondary to anastomotic leak following a sigmoid resection and low AP resection from initial surgery performed on 04/13/2022, status post left colectomy and diverting colostomy Septic shock secondary to above secondary to abdominal sepsis, remains on antibiotics. 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 Current hemoglobin 6.8. Type 2 diabetes Dyslipidemia Anasarca and scrotal edema secondary to hypoproteinemia patient is presently on TPN. Valvular heart disease with moderate degree of mitral regurgitation and severe tricuspid regurgitation with pulmonary hypertension Underlying COPD Benign prostatic hypertrophy Plan: The patient was seen and evaluated Medications and labs reviewed Currently stable and on room air Continue meropenem, Diflucan Continued on diuretics Encourage increased use of the incentive spirometer Continued on TPN, tolerating a clear liquid diet before school babysitter at the bedside We will continue to follow I have personally seen and examined the patient, performed the documentation and the assessment and plan as written. Number of minutes spent on the visit: 10.
--- NOTE | 2022-04-27 13:09 | P.PN ---
Subjective Progress Note Date: 04/25/22 72-year-old male with a known history of coronary artery disease status post CABG and recent stent placement in February 2022 initially presented to ER with complaints of shortness of breath and exertional dyspnea. Patient initially thought it was due to his heart condition and went to ER. Patient was found to have a hemoglobin of 6.9 and received 1 unit of PRBC. Patient was tested positive for FOBT. Patient is also taking aspirin and Plavix from recent stent placement. Patient also states that he has been taking Motrin for the last couple of weeks for his neuropathy pain in his feet. Denies any complaints of hematemesis dark-colored stools. Patient was transferred to [facility] for GI evaluation. On admission WBC 4.4 hemoglobin 7.5 MCV 79.7 and platelets 243 Sodium 143 potassium 4.2 chloride 101 bicarb is 19 BUN 25 and creatinine 1.72 Calcium 7.4 04/25/2022, the patient is afebrile, the patient has been moved out of the ICU, the patient is breathing comfortably on 2 L nasal cannula oxygen, the patient denies having any chest pain or shortness of Cough, patient apparently was confused last night and his report his dressing with his hands in his wound currently with a sitter at the bedside Objective - Vital Signs Vital signs: Vital Signs Temp 97.7 F 04/25/22 11:27 Pulse 88 04/25/22 15:21 Resp 16 04/25/22 11:27 BP 114/68 04/25/22 11:27 Pulse Ox 97 04/25/22 11:45 FiO2 2 04/25/22 11:45 Intake & Output 04/24/22 04/25/22 04/25/22 18:59 06:59 18:59 Intake Total 3082.3 1150 Output Total 2720 826 4995 Balance 1830.3 445 -1150 Weight 103.1 kg Intake: IV 493.3 120 Fluconazole in NaCl,Iso- 100 Osm 200 mg In Saline 1 100ml.bag @ 100 mls/hr IVPB DAILY [facility] Rx#: [id number] Invasive Line 1 120 Meropenem 1 gm In Sodium 33.3 Chloride 0.9% 100 ml @ 33 .3 mls/hr IVPB Q8HR@0000, 0400,1200 [facility] Rx#: [id number] Mvi, Adult No.4 with Vit 240 120 K 10 ml Trace (Conc-1Ml/ Dose) 1 ml Calcium Gluconate 1 gm Potassium Chloride 20 meq Magnesium Sulfate gm 1 gm In Amino Acid 4.25%-D10w+Lytes*E* 1,000 ml @ 65 mls/hr IV .BY DURATION [facility] Rx#: [id number] Intake, IV Titration 1187 Amount Calcium Gluconate 1 gm 1027 Potassium Chloride 20 meq Magnesium Sulfate gm 1 gm Sodium Chloride 4Meq/ ml Vial 20 meq In Amino Acid 4.25%-D10w+Lytes*E* 1,000 ml @ 65 mls/hr IV . BY DURATION [facility] Rx#: [id number] Mvi, Adult No.4 with Vit 160 K 10 ml Trace (Conc-1Ml/ Dose) 1 ml Calcium Gluconate 1 gm Potassium Chloride 20 meq Magnesium Sulfate gm 1 gm Sodium Chloride 4Meq/ml Vial 20 meq In Amino Acid 4.25%- D10w+Lytes*E* 1,000 ml @ 30 mls/hr IV .BY DURATION [facility] Rx#:[id number] Oral 1402 1030 Output: Urine 752 705 700 Stool 500 450 Other: Voiding Method Indwelling Catheter Indwelling Catheter Indwelling Catheter ABP, PAP, CO, CI - Last Documented Arterial Blood Pressure 126/50 - Exam GENERAL: The patient is alert and oriented x3, not in any acute distress. Well developed, well nourished. HEENT: Pupils are round and equally reacting to light. EOMI. No scleral icterus. No conjunctival pallor. Normocephalic, atraumatic. No pharyngeal erythema. No thyromegaly. CARDIOVASCULAR: S1 and S2 present. No murmurs, rubs, or gallops. PULMONARY: Chest is clear to auscultation, no wheezing or crackles. -ABDOMEN: Soft, nontender, nondistended, normoactive bowel sounds. No palpable organomegaly. Left colostomy back with yellow stool. Surgical wound is healing and closed MUSCULOSKELETAL: No joint swelling or deformity. -EXTREMITIES: No cyanosis, clubbing, or 2+ bilateral pitting leg edema. NEUROLOGICAL: Gross neurological examination did not reveal any focal deficits. SKIN: No rashes. no petechiae. - Labs CBC & Chem 7: 04/27/22 05:51 04/27/22 05:51 Labs: Abnormal Lab Results - Last 24 Hours (Table) 04/24/22 04/24/22 04/25/22 Range/Units 21:36 23:23 05:43 WBC (3.8-10.6) k/uL RBC (4.30-5.90) m/uL Hgb (13.0-17.5) gm/dL Hct (39.0-53.0) % MCH (25.0-35.0) pg MCHC (31.0-37.0) g/dL RDW (11.5-15.5) % Plt Count (150-450) k/uL Neutrophils # (1.3-7.7) k/uL Lymphocytes # (1.0-4.8) k/uL Sodium 134 L (137-145) mmol/L BUN 31 H (9-20) mg/dL Creatinine 1.37 H (0.66-1.25) mg/dL Glucose 68 L (74-99) mg/dL POC Glucose (mg/dL) 147 H 137 H (70-110) mg/dL Calcium 7.7 L (8.4-10.2) mg/dL Alkaline Phosphatase 172 H (38-126) U/L Total Protein 5.6 L (6.3-8.2) g/dL Albumin 2.7 L (3.5-5.0) g/dL 04/25/22 04/25/22 04/25/22 Range/Units 05:43 12:12 17:27 WBC 14.9 H (3.8-10.6) k/uL RBC 2.97 L (4.30-5.90) m/uL Hgb 7.3 L (13.0-17.5) gm/dL Hct 24.4 L (39.0-53.0) % MCH 24.5 L (25.0-35.0) pg MCHC 29.8 L (31.0-37.0) g/dL RDW 19.2 H (11.5-15.5) % Plt Count 458 H (150-450) k/uL Neutrophils # 13.0 H (1.3-7.7) k/uL Lymphocytes # 0.9 L (1.0-4.8) k/uL Sodium (137-145) mmol/L BUN (9-20) mg/dL Creatinine (0.66-1.25) mg/dL Glucose (74-99) mg/dL POC Glucose (mg/dL) 157 H 145 H (70-110) mg/dL Calcium (8.4-10.2) mg/dL Alkaline Phosphatase (38-126) U/L Total Protein (6.3-8.2) g/dL Albumin (3.5-5.0) g/dL Microbiology - Last 24 Hours (Table) 04/20/22 15:40 Blood Culture - Preliminary Blood No Growth after 96 hours Assessment and Plan Assessment: Sigmoid colon mass status post low anterior resection postoperative day #10 with 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 Anastomotic leak and ischemic bowel following low anterior resection patient is currently postoperative day #6 abdominal washout, takedown of anastamosis with left colectomy and colostomy formation LUQ. Shock likely septic shock secondary to above and patient is currently off vasopressor support and blood pressure is stable Acute hypoxic respiratory failure requiring intubation, patient has been extubated on 04/21/2022 and continues on 2L of oxygen via nasal cannula. Acute blood loss anemia from GI bleed secondary to sigmoid colon mass. Patient has received 3 units of blood this admission. Hemoglobin stable at 7.6 Acute kidney injury prerenal with acute tubular necrosis, improved Postoperative urinary retention with indwelling catheter placed Microcytic anemia with iron deficiency. Hyperglycemia Coronary artery disease with history of stent placement in February 2022 Coronary artery disease history of CABG Plan: Keep the patient in the ICU following now Advance diet per surgery team, currently on liquid diet, taper off TPN Continue with IV Lasix twice daily Continue with antibiotic as per ID team, currently on meropenem, daptomycin and fluconazole Continue with Levemir and) and with a glucose Continue with aspirin No need for blood transfusion and keep monitoring hemoglobin Monitor creatinine several consultants on the case including pulmonary/critical care team, surgery team, nephrology team and infectious disease team Labs and medication were reviewed.. Continue same treatment. Continue with symptomatic treatment. Resume home medication. Monitor labs and vitals. DVT and GI prophylaxis. Further recommendations as per clinical course of the patient DVT prophylaxis: Subcutaneous heparin
--- NOTE | 2022-04-27 13:12 | P.PN ---
Subjective Progress Note Date: 04/26/22 72-year-old male with a known history of coronary artery disease status post CABG and recent stent placement in February 2022 initially presented to ER with complaints of shortness of breath and exertional dyspnea. Patient initially thought it was due to his heart condition and went to ER. Patient was found to have a hemoglobin of 6.9 and received 1 unit of PRBC. Patient was tested positive for FOBT. Patient is also taking aspirin and Plavix from recent stent placement. Patient also states that he has been taking Motrin for the last couple of weeks for his neuropathy pain in his feet. Denies any complaints of hematemesis dark-colored stools. Patient was transferred to [facility] for GI evaluation. On admission WBC 4.4 hemoglobin 7.5 MCV 79.7 and platelets 243 Sodium 143 potassium 4.2 chloride 101 bicarb is 19 BUN 25 and creatinine 1.72 Calcium 7.4 04/25/2022, the patient is afebrile, the patient has been moved out of the ICU, the patient is breathing comfortably on 2 L nasal cannula oxygen, the patient denies having any chest pain or shortness of Cough, patient apparently was confused last night and his report his dressing with his hands in his wound currently with a sitter at the bedside 04/26/2022, the patient is seen and evaluated in room at bedside; remains to be afebrile, the patient is breathing comfortably on 2 L nasal cannula oxygen, the patient denies having any chest pain or shortness of Cough, patient is more awake and alert today no vomiting or diarrhea has been reported by the nursing staff; con cern about swelling left lower extremity -- Left lower extremity edema/swelling; venous Doppler is ordered and pending fever seems to have resolved however the white count was 14,000 yesterday no CBC has been in today we will check a CBC and CRP with a.m. lab -patient to continue with meropenem daptomycin and monitor clinical course closely Objective - Vital Signs Vital signs: Vital Signs Temp 97.8 F 04/26/22 07:18 Pulse 95 04/26/22 07:18 Resp 18 04/26/22 07:18 BP 134/82 04/26/22 07:18 Pulse Ox 92 L 04/26/22 09:58 FiO2 2 04/25/22 11:45 Intake & Output 04/25/22 04/26/22 04/26/22 18:59 06:59 18:59 Intake Total 100 Output Total 1150 1200 1650 Balance -1150 -1100 -1650 Weight 103.1 kg Intake: Oral 100 Output: Urine 700 1200 800 Stool 450 850 Other: Voiding Method Indwelling Catheter Indwelling Catheter Indwelling Catheter ABP, PAP, CO, CI - Last Documented Arterial Blood Pressure 126/50 - Exam GENERAL: The patient is alert and oriented x3, not in any acute distress. Well developed, well nourished. HEENT: Pupils are round and equally reacting to light. EOMI. No scleral icterus. No conjunctival pallor. Normocephalic, atraumatic. No pharyngeal erythema. No thyromegaly. CARDIOVASCULAR: S1 and S2 present. No murmurs, rubs, or gallops. PULMONARY: Chest is clear to auscultation, no wheezing or crackles. -ABDOMEN: Soft, nontender, nondistended, normoactive bowel sounds. No palpable organomegaly. Left colostomy back with yellow stool. Surgical wound is healing and closed MUSCULOSKELETAL: No joint swelling or deformity. -EXTREMITIES: No cyanosis, clubbing, or 2+ bilateral pitting leg edema. NEUROLOGICAL: Gross neurological examination did not reveal any focal deficits. SKIN: No rashes. no petechiae. - Labs CBC & Chem 7: 04/27/22 05:51 04/27/22 05:51 Labs: Abnormal Lab Results - Last 24 Hours (Table) 04/25/22 04/25/22 04/26/22 Range/Units 17:27 23:51 04:43 Sodium 135 L (137-145) mmol/L BUN 32 H (9-20) mg/dL Glucose 68 L (74-99) mg/dL POC Glucose (mg/dL) 145 H 137 H (70-110) mg/dL Calcium 7.7 L (8.4-10.2) mg/dL Alkaline Phosphatase 140 H (38-126) U/L Total Protein 5.4 L (6.3-8.2) g/dL Albumin 2.6 L (3.5-5.0) g/dL Microbiology - Last 24 Hours (Table) 04/20/22 15:40 Blood Culture - Preliminary Blood No Growth after 120 hours Assessment and Plan Assessment: Sigmoid colon mass status post low anterior resection postoperative day #10 with 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 Anastomotic leak and ischemic bowel following low anterior resection patient is currently postoperative day #6 abdominal washout, takedown of anastamosis with left colectomy and colostomy formation LUQ. Shock likely septic shock secondary to above and patient is currently off vasopressor support and blood pressure is stable Acute hypoxic respiratory failure requiring intubation, patient has been extubated on 04/21/2022 and continues on 2L of oxygen via nasal cannula. Acute blood loss anemia from GI bleed secondary to sigmoid colon mass. Patient has received 3 units of blood this admission. Hemoglobin stable at 7.6 Acute kidney injury prerenal with acute tubular necrosis, improved Postoperative urinary retention with indwelling catheter placed Microcytic anemia with iron deficiency. Hyperglycemia Coronary artery disease with history of stent placement in February 2022 Coronary artery disease history of CABG Plan: Keep the patient in the ICU following now Advance diet per surgery team, currently on liquid diet, taper off TPN Continue with IV Lasix twice daily Continue with antibiotic as per ID team, currently on meropenem, daptomycin and fluconazole Continue with Levemir and) and with a glucose Continue with aspirin No need for blood transfusion and keep monitoring hemoglobin Monitor creatinine several consultants on the case including pulmonary/critical care team, surgery team, nephrology team and infectious disease team Labs and medication were reviewed.. Continue same treatment. Continue with symptomatic treatment. Resume home medication. Monitor labs and vitals. DVT and GI prophylaxis. Further recommendations as per clinical course of the patient DVT prophylaxis: Subcutaneous heparin
[2022-04-27 17:29] LABS: Glucose,Whole Blood 160 mg/dL (70-110)
[2022-04-27] MEDS: MELATONIN 3 MG TABLET PO SCH (20:24)
[2022-04-27 20:45] LABS: Glucose,Whole Blood 279 mg/dL (70-110)
--- NOTE | 2022-04-27 23:07 | P.PN ---
Subjective Progress Note Date: 04/27/22 Principal diagnosis: Intra-abdominal infection Patient is a 72 year old male presented to the hospital with symptomatic anemia did have low anterior resection subsequently did have a anastomosis leak on 04/17/2022 with laparotomy and resection of ischemic portion abdominal culture were disregarded by micro-lab as possible contamination, subsequently did have a fever and more purulent drainage from abdominal incision that prompted with diarrhea infectious disease consultation On today's evaluation that is 04/27/2022, the patient continues to be afebrile, the patient is breathing comfortably on 2 L nasal cannula oxygen, the patient denies having any chest pain or shortness of Cough, patient denies nausea vomiting and no diarrhea has been reported by the nursing staff Objective - Vital Signs Vital signs: Vital Signs Temp 98.2 F 04/27/22 06:57 Pulse 100 04/27/22 08:23 Resp 18 04/27/22 06:57 BP 91/56 04/27/22 06:57 Pulse Ox 99 04/27/22 08:23 FiO2 2 04/25/22 11:45 Intake & Output 04/26/22 04/27/22 04/27/22 18:59 06:59 18:59 Output Total 2350 1200 Balance -2350 -1200 Output: Urine 1050 950 Stool 1300 250 Other: Voiding Method Indwelling Catheter Indwelling Catheter ABP, PAP, CO, CI - Last Documented Arterial Blood Pressure 126/50 - Exam GENERAL DESCRIPTION: An elderly male lying in bed in no distress RESPIRATORY SYSTEM: Unlabored breathing , decreased breath sounds at bases HEART: S1 S2 regular rate and rhythm , ABDOMEN: Soft , no tenderness, abdominal incision is currently dressed EXTREMITIES: No edema feet - Labs CBC & Chem 7: 04/27/22 05:51 04/27/22 05:51 Labs: Abnormal Lab Results - Last 24 Hours (Table) 04/26/22 04/26/22 04/27/22 Range/Units 17:08 23:51 05:51 BUN 31 H (9-20) mg/dL POC Glucose (mg/dL) 167 H 246 H (70-110) mg/dL Calcium 8.0 L (8.4-10.2) mg/dL Alkaline Phosphatase 140 H (38-126) U/L C-Reactive Protein 14.9 H (<1.0) mg/dL Total Protein 5.8 L (6.3-8.2) g/dL Albumin 2.8 L (3.5-5.0) g/dL Microbiology - Last 24 Hours (Table) 04/20/22 15:40 Blood Culture - Final Blood No Growth after 144 hours Assessment and Plan (1) Abdominal wall abscess Current Visit: Yes Status: Acute Code(s): L02.211 - CUTANEOUS ABSCESS OF ABDOMINAL WALL SNOMED Code(s): 31629836 Plan: 1patient with admission to the hospital with symptomatic anemia patient was not iced to have circumferential colon tumor in this patient who is status post low anterior resection with a clinical course complicated by ischemia of the anastomosis site and leak leading to secondary peritonitis abdominal culture did grew 3 different gram-negative and Enterococcus unfortunately those were not worked up further by the micro lab considering them to be contamination as the patient is spiking fever source and likely secondary to secondary peritonitis abdominal cultures did grew multidrug resistant Enterobacter E. coli and enterococcus 2the patient fever seemed to have resolved however the white count still elevated could be related to the IJ/central line, RN was advised to discontinue the central line and obtain a peripheral IV and plan is to get a PICC line in the morning 3-patient to continue with meropenem along with Diflucan and monitor clinical course closely Time with Patient: Less than 30
[2022-04-28 00:18] LABS: Glucose,Whole Blood 183 mg/dL (70-110)
[2022-04-28] MEDS: INSULIN ASPART (NovoLOG) 100 UNIT/ML VIAL SQ SCH ×4 (00:37→17:51)
[2022-04-28] MEDS: HEPARIN SODIUM,PORCINE/PF 5,000 UNIT/0.5 ML SYRINGE SQ SCH ×3 (00:37→17:51)
[2022-04-28] MEDS: MEROPENEM 1 GM in SODIUM CHLORIDE 0.9% 100 ML IVPB SCH ×3 (03:47→21:52)
[2022-04-28 05:05] LABS: ALT 34 U/L (4-49); AST 35 U/L (17-59); African American GFR (CKD) 74 (>60 ml/min/1.73 sqM); Albumin 2.8 g/dL (3.5-5.0); Albumin/Globulin Ratio 0.9; Alkaline Phosphatase 125 U/L (38-126); Anion Gap 7 mmol/L; Blood Urea Nitrogen 30 mg/dL (9-20); Carbon Dioxide 27 mmol/L (22-30); Chloride 101 mmol/L (98-107); Glucose 75 mg/dL (74-99); Non-African American GFR(CKD) 64 (>60 ml/min/1.73 sqM); Phosphorus 3.5 mg/dL (2.5-4.5); Potassium 4.3 mmol/L (3.5-5.1); Sodium 135 mmol/L (137-145); Total Bilirubin 0.4 mg/dL (0.2-1.3); Total Protein 5.8 g/dL (6.3-8.2)
[2022-04-28 05:29] LABS: C Reactive Protein 14.3 mg/dL (<1.0)
[2022-04-28 06:06] LABS: Glucose,Whole Blood 76 mg/dL (70-110)
[2022-04-28] MEDS: 1: MVI, ADULT NO.4 WITH VIT K 10 ML, TRACE (CONC-1ML/DOSE) 1 ML, CALCIUM GLUCONATE 1 GM, IV SCH ×6 (06:45)
[2022-04-28] MEDS: ALBUTEROL NEBULIZED 2.5 MG/3 ML INHALATION SCH ×4 (08:49→20:46)
[2022-04-28] MEDS: IPRATROPIUM 0.5 MG/2.5 ML NEBU INHALATION SCH ×4 (08:49→20:47)
--- NOTE | 2022-04-28 08:59 | XR ---
EXAMINATION TYPE: XR chest 1V portable DATE OF EXAM: 04/28/2022 COMPARISON: 04/25/2022 HISTORY: Chest pain FINDINGS: There are bilateral pleural effusions with cardiomegaly and bibasilar infiltrate. There is a diffuse interstitial pattern. Left-sided central lesion is seen and there is postoperative changes. Atherosc lerotic change aorta. Underlying COPD suspected. IMPRESSION: 1. Diffuse pleural-parenchymal changes most typical of CHF stable from prior exam.
[2022-04-28] MEDS: MIDODRINE 5 MG TAB PO SCH ×3 (09:19→17:51)
[2022-04-28] MEDS: METOPROLOL TARTRATE 25 MG TAB PO SCH ×2 (09:21→21:52)
[2022-04-28] MEDS: FAMOTIDINE 20 MG/2 ML VIAL IV SCH (09:21)
[2022-04-28] MEDS: FUROSEMIDE 10 MG/ML 4 ML VIAL IV SCH ×2 (09:21→21:52)
[2022-04-28] MEDS: FLUCONAZOLE IN NACL,ISO-OSM 200 MG in SALINE 1 100ML.BAG IVPB SCH (09:21)
[2022-04-28] MEDS: TAMSULOSIN 0.4 MG CAP.ER.24H PO SCH (09:21)
[2022-04-28] MEDS: ATORVASTATIN 40 MG TAB PO SCH (09:21)
[2022-04-28] MEDS: INSULIN DETEMIR (LEVEMIR) 100 UNIT/ML SYR SQ SCH ×2 (09:22→21:52)
[2022-04-28 09:44] LABS: Basophils # (A) 0.06 X 10*3/uL (0.00-0.10); Basophils % (A) 0.5 %; Eosinophils # (A) 0.04 X 10*3/uL (0.04-0.35); Eosinophils % (A) 0.3 %; HCT 26.4 % (39.6-50.0); HGB 7.6 g/dL (13.0-17.0); Immature Grans, Automated 0.8 %; Lymphocytes % (A) 7.9 %; MCH 24.4 pg (27.0-32.0); MCHC 28.8 g/dL (32.0-37.0); MCV 84.9 fL (80.0-97.0); Mean Platelet Volume 11.7 fL (9.5-12.2); Monocytes # (A) 1.03 X 10*3/uL (0.20-1.00); Monocytes % (A) 8.1 %; NRBC Per 100 WBC 0 /100 WBCS (0.0-0.0); Neutrophils # (A) 10.47 X 10*3/uL (1.80-7.70); Neutrophils % (A) 82.4 %; Platelet Count 492 X 10*3/uL (140-440); RBC 3.11 X 10*6/uL (4.40-5.60)
[2022-04-28] MEDS: HYDROcodone/APAP 5-325MG 1 EACH TAB PO PRN ×3 (11:25→21:55)
--- NOTE | 2022-04-28 11:26 | P.PN ---
Subjective Patient is seen in follow-up for acute kidney injury. Underwent exploratory laparotomy with washout of abdomen with colostomy placement on 04/17/2022. Nonoliguric. Renal function stable. Receiving TPN. Nonoliguric. Now on regular diet. Denies chest pain or shortness of breath. No active complaints. Sitter at bedside. Vital signs are stable. General: Resting in bed. HEENT: On nasal cannula. LUNGS: No audible rhonchi or wheezes. HEART: Rate and Rhythm are regular. ABDOMEN: Colostomy noted. EXTREMITITES: 1+ edema. Objective - Vital Signs Vital signs: Vital Signs Temp 97.8 F 04/28/22 07:19 Pulse 94 04/28/22 09:10 Resp 18 04/28/22 07:19 BP 121/74 04/28/22 07:19 Pulse Ox 97 04/28/22 08:50 FiO2 2 04/25/22 11:45 Intake & Output 04/27/22 04/28/22 04/28/22 18:59 06:59 18:59 Intake Total 1028 310 Output Total 1425 2200 Balance -397 -1890 Intake: Intake, IV Titration 1028 Amount Mvi, Adult No.4 with Vit 1028 K 10 ml Trace (Conc-1Ml/ Dose) 1 ml Calcium Gluconate 1 gm Magnesium Sulfate gm 1 gm Sodium Chloride 4Meq/ml Vial 20 meq In Amino Acid 4.25%- D10w+Lytes*E* 1,000 ml @ 30 mls/hr IV .BY DURATION [facility] Rx#:[id number] Oral 0 Blood Product 0 310 Rc As-1 Unit 0 310 [id number] Output: Urine 1125 1100 Stool 300 1100 Other: Voiding Method Indwelling Catheter Indwelling Catheter Indwelling Catheter ABP, PAP, CO, CI - Last Documented Arterial Blood Pressure 126/50 - Labs CBC & Chem 7: 04/28/22 04:13 04/28/22 04:13 Labs: Abnormal Lab Results - Last 24 Hours (Table) 04/27/22 04/27/22 04/27/22 Range/Units 12:58 17:28 20:15 WBC (4.50-10.00) X 10*3/uL RBC (4.40-5.60) X 10*6/uL Hgb (13.0-17.0) g/dL Hct (39.6-50.0) % MCH (27.0-32.0) pg MCHC (32.0-37.0) g/dL RDW (11.5-14.5) % Plt Count (140-440) X 10*3/uL Immature Gran # (0.00-0.04) X 10*3/uL Neutrophils # (1.80-7.70) X 10*3/uL Monocytes # (0.20-1.00) X 10*3/uL Sodium (137-145) mmol/L BUN (9-20) mg/dL POC Glucose (mg/dL) 160 H 279 H (70-110) mg/dL Calcium (8.4-10.2) mg/dL C-Reactive Protein (<1.0) mg/dL Total Protein (6.3-8.2) g/dL Albumin (3.5-5.0) g/dL Crossmatch See Detail 04/27/22 04/28/22 04/28/22 Range/Units 23:58 04:13 04:13 WBC 12.70 H (4.50-10.00) X 10*3/uL RBC 3.11 L (4.40-5.60) X 10*6/uL Hgb 7.6 L (13.0-17.0) g/dL Hct 26.4 L (39.6-50.0) % MCH 24.4 L (27.0-32.0) pg MCHC 28.8 L (32.0-37.0) g/dL RDW 21.0 H (11.5-14.5) % Plt Count 492 H (140-440) X 10*3/uL Immature Gran # 0.10 H (0.00-0.04) X 10*3/uL Neutrophils # 10.47 H (1.80-7.70) X 10*3/uL Monocytes # 1.03 H (0.20-1.00) X 10*3/uL Sodium 135 L (137-145) mmol/L BUN 30 H (9-20) mg/dL POC Glucose (mg/dL) 183 H (70-110) mg/dL Calcium 8.0 L (8.4-10.2) mg/dL C-Reactive Protein 14.3 H (<1.0) mg/dL Total Protein 5.8 L (6.3-8.2) g/dL Albumin 2.8 L (3.5-5.0) g/dL Crossmatch Assessment and Plan Plan: Assessment: 1. Acute kidney injury secondary to ATN and urinary retention. Creatinine peaked at 2.86 this admission is 1.14 today. No hydronephrosis noted on kidney ultrasound. UA fairly benign. 2. GI bleed status post blood transfusion this admission. Hemoglobin 7.3 04/25/22. 3. 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 Status post exploratory laparotomy with washout of abdomen and colostomy 04/17/2022. 4. Volume overload. On IV Lasix. 5. Metabolic acidosis secondary to acute kidney injury and IV fluids. Also GI losses. s/p bicarb drip. Resolved. 6. Diabetes mellitus. 7. Coronary disease status post CABG and cardiac stenting. 8. Urinary retention. Has Bo catheter. On Flomax. Urology following. 9. Hypokalemia from diuresis and hypomagnesemia. Replaced. Improved. 10. Hypomagnesemia from diuresis and GI losses. Replaced. Improved. Plan: Maintain TPN per surgery. Maintain IV Lasix. Continue to monitor renal function and urine output. Avoid nephrotoxins. Maintain midodrine. Hold for systolic blood pressure greater than 110.
[2022-04-28 11:45] LABS: Glucose,Whole Blood 143 mg/dL (70-110)
--- NOTE | 2022-04-28 11:51 | P.PN ---
Subjective Progress Note Date: 04/28/22 Principal diagnosis: Chest pain. Reevaluated today on 04/24/2022, patient remains in the ICU, doing fairly well, no major issues overnight. Patient still doing a bit poorly with incentive spirometry, he has been up in the chair, continues to have scrotal edema and that's quite significant continues to have bipedal edema now he is on a maintenance dose of Lasix 20 mg twice a day. His antibiotics have been changed per infectious disease now he is on Merrem and daptomycin as well as Diflucan. Today I am cutting down the TPN to have dose since the patient is already tolerating oral intake. Tomorrow will likely discontinue TPN and go to full diet. Hemoglobin is a bit low today at 6.9, may consider transfusing the patient if the hemoglobin continues to drift down. Baseline has been in the 7.5 range for the last 5 days basic metabolic profile is normal renal profile is normal except for creatinine of 1.26, slightly worse today compared to yesterday and it was 1.23 yesterday. Patient is being followed by nephrology.. No chest x-ray has been done. The patient is seen today 04/25/2022 in follow-up on the regular medical floor. He was transferred out of the intensive care unit yesterday. He was doing quite well. Maintaining good O2 saturations in the 90s on 2 L/m per nasal cannula. Chest x-ray reveals bilateral infiltrate and pleural effusion stable. Slight improvement. He's been afebrile. Hemodynamically stable. He did receive 1 unit of packed red blood cells yesterday. Current hemoglobin 7.3. Blood cultures positive for gram-negative bacilli in the abdominal wound. White count 14.9. Hemoglobin 7.3. Platelets 458. Sodium 134. Potassium 4.6. Bicarb 29. BUN 31. Creatinine 1.27. Glucose 98. He remains on IV diuretics. Currently in a positive balance. Remains on antibiotics in the form of meropenem and daptomycin. Continued on Diflucan. Being nourished with TPN. Tolerating a full liquid diet. He did have some issues with confusion through the night and had pulled off his colostomy bag, pulled off his dressing and packing to his open abdominal wound. Pulled out his IV. The patient is seen today 04/26/2022 in follow-up on the regular medical floor. He is currently sitting up in bed. More awake and alert. Cooperative. beauty therapist at the bedside. Denies any worsening shortness of breath, cough or congestion. He is maintaining good O2 saturations in the 90s on 2 L/m per nasal cannula. BUN nourished with TPN at 36 ML's per hour. He is tolerating a full liquid diet. Abdominal wound cultures are positive for Enterobacter cloacae, Enterococcus faecalis and E. coli. Sodium 135. Potassium 4.5. Bicarb 28. BUN 32. Creatinine 1.22. Glucose 68. He is continued on fluconazole, daptomycin and meropenem. Remains on IV diuretics. Currently in a -2.2 L balance The patient is seen today 04/27/2022 in follow-up on the regular medical floor. He is awake and alert in no acute distress. Oriented 2. beauty therapist at the bedside. No worsening shortness of breath, cough or congestion. Maintaining O2 saturations in the 90s on room air. Recurrent fever 100.8. Remains on meropenem, Diflucan. Heparin for DVT prophylaxis. Nutritional support with TPN at 30 MLS per hour. Tolerating a clear liquid diet being advanced to full liquid per surgical services. White count 14.7. Hemoglobin 6.8. Platelets 513. Sodium 137. Potassium 4.5. Bicarb 30. BUN 31. Creatinine 1.25. Glucose 168. Progress note dated 04/28/2022. 73-year-old male, seen today in room 530. The patient appears to be doing about the same. He is awake, in no distress. Currently, the patient is on 2 L of oxygen. He is getting saline at 10 mL an hour, and TPN at 30 mL an hour. Labs today include a white count of 12.7, hemoglobin 7.6, hematocrit 26.4, and platelet count 492,000. Sodium 135, potassium 4.3, chlorides 101, CO2 27, BUN 30, creatinine 1.14. Abdominal cultures, on very stay show evidence of enterococcus faecalis, Enterobacter cloaca, and Escherichia coli. The patient remains on fluconazole, and meropenem. Objective - Vital Signs Vital signs: Vital Signs Temp 97.8 F 04/28/22 07:19 Pulse 88 04/28/22 11:39 Resp 18 03/20/23 07:19 BP 121/74 04/28/22 07:19 Pulse Ox 97 04/28/22 08:50 FiO2 2 04/25/22 11:45 Intake & Output 04/27/22 04/28/22 04/28/22 18:59 06:59 18:59 Intake Total 1028 310 Output Total 1425 2200 Balance -397 1890 Intake: Intake, IV Titration 1028 Amount Mvi, Adult No.4 with Vit 1028 K 10 ml Trace (Conc-1Ml/ Dose) 1 ml Calcium Gluconate 1 gm Magnesium Sulfate gm 1 gm Sodium Chloride 4Meq/ml Vial 20 meq In Amino Acid 4.25%- D10w+Lytes*E* 1,000 ml @ 30 mls/hr IV .BY DURATION [facility] Rx#:[id number] Oral 0 Blood Product 0 310 Rc As-1 Unit 0 310 [id number] Output: Urine 1125 1100 Stool 300 1100 Other: Voiding Method Indwelling Catheter Indwelling Catheter Indwelling Catheter ABP, PAP, CO, CI - Last Documented Arterial Blood Pressure 126/50 - Exam No acute distress, lethargic. Currently on 2 L. HEENT examination is grossly unremarkable. Neck supple. Full range of motion. No adenopathy thyromegaly or neck vein distention. Cardiovascular examination reveals regular rhythm rate. S1-S2 normal. No S3 or S4. No discernible murmur noted. Heart sounds are distant. Heart rate 88 bpm. Lungs reveal scattered rhonchi. Breath sounds are equal. No wheezes or crackles. 2 L saturation is 97%. Abdomen soft, no tenderness. Extremities are intact. No cyanosis clubbing or edema. Skin is without rash or lesion. Neurologic examination is brief but nonfocal. - Labs CBC & Chem 7: 04/28/22 04:13 04/28/22 04:13 Labs: Abnormal Lab Results - Last 24 Hours (Table) 04/27/22 04/27/22 04/27/22 Range/Units 12:58 17:28 20:15 WBC (4.50-10.00) X 10*3/uL RBC (4.40-5.60) X 10*6/uL Hgb (13.0-17.0) g/dL Hct (39.6-50.0) % MCH (27.0-32.0) pg MCHC (32.0-37.0) g/dL RDW (11.5-14.5) % Plt Count (140-440) X 10*3/uL Immature Gran # (0.00-0.04) X 10*3/uL Neutrophils # (1.80-7.70) X 10*3/uL Monocytes # (0.20-1.00) X 10*3/uL Sodium (137-145) mmol/L BUN (9-20) mg/dL POC Glucose (mg/dL) 160 H 279 H (70-110) mg/dL Calcium (8.4-10.2) mg/dL C-Reactive Protein (<1.0) mg/dL Total Protein (6.3-8.2) g/dL Albumin (3.5-5.0) g/dL Crossmatch See Detail 04/27/22 04/28/22 04/28/22 Range/Units 23:58 04:13 04:13 WBC 12.70 H (4.50-10.00) X 10*3/uL RBC 3.11 L (4.40-5.60) X 10*6/uL Hgb 7.6 L (13.0-17.0) g/dL Hct 26.4 L (39.6-50.0) % MCH 24.4 L (27.0-32.0) pg MCHC 28.8 L (32.0-37.0) g/dL RDW 21.0 H (11.5-14.5) % Plt Count 492 H (140-440) X 10*3/uL Immature Gran # 0.10 H (0.00-0.04) X 10*3/uL Neutrophils # 10.47 H (1.80-7.70) X 10*3/uL Monocytes # 1.03 H (0.20-1.00) X 10*3/uL Sodium 135 L (137-145) mmol/L BUN 30 H (9-20) mg/dL POC Glucose (mg/dL) 183 H (70-110) mg/dL Calcium 8.0 L (8.4-10.2) mg/dL C-Reactive Protein 14.3 H (<1.0) mg/dL Total Protein 5.8 L (6.3-8.2) g/dL Albumin 2.8 L (3.5-5.0) g/dL Crossmatch Assessment and Plan Assessment: Acute hypoxic respiratory failure secondary to abdominal sepsis and septic shock, patient was extubated uneventfully on 04/21/2022. Acute surgical abdomen secondary to anastomotic leak following a sigmoid resection and low AP resection from initial surgery performed on 04/13/2022, status post left colectomy and diverting colostomy. Septic shock secondary to above secondary to abdominal sepsis Surgical wound infection. Sigmoid colon mass, post low AP resection performed on 04/13/2022. Underlying coronary artery disease and previous CABG. Chronic kidney disease stage III. GI bleeding secondary to sigmoid colon tumor. Anemia, status post 1 unit packed red blood cells this admission. Type 2 diabetes. Dyslipidemia. Anasarca and scrotal edema secondary to hypoproteinemia patient is presently on TPN. Valvular heart disease with moderate degree of mitral regurgitation and severe tricuspid regurgitation with pulmonary hypertension. Underlying COPD. Benign prostatic hypertrophy. Plan: Plan dated 04/28/2022. The patient is seen and evaluated. The patient remains on meropenem and fluconazole. The patient's labs, x-rays, medications are reviewed. The patient continues on TPN at 30 mL an hour. He is tolerating clear liquid diet. We will continue to follow. Overall prognosis remains very guarded. The patient's a bit lethargic, but does arouse. Time with Patient: Less than 30
[2022-04-28] MEDS: ASPIRIN 81 MG PO SCH (13:00)
[2022-04-28] MEDS: SIMETHICONE 40 MG/0.6 ML DROPS 2,000 MG/30 ML BOTTLE PO SCH ×4 (13:00→22:00)
--- NOTE | 2022-04-28 14:16 | P.PN ---
Subjective Progress Note Date: 04/28/22 CHIEF COMPLAINT: Colon mass HISTORY OF PRESENT ILLNESS: Patient had lower anterior resection for sigmoid colon mass on 04/13/2022. He developed anastomotic leak and is status post exploratory laparotomy, washout of abdomen takedown of anastomosis and colostomy in the left upper quadrant for anastomotic leak secondary to ischemic colon on 04/17/22. Patient currently on a regular medical floor. His ostomy is functioning. Oral intake is still diminished. He is on TPN. He did receive a unit of blood for hemoglobin of 6.8 and repeat hemoglobin 7.6. White count trending down from 14-12 Patient seen and examined with Dr. Carrera PHYSICAL EXAM: VITAL SIGNS: Reviewed. GENERAL: Well-developed in no acute distress. HEENT: No sclera icterus. Extraocular movements grossly intact. Moist buccal m ucosa. Head is atraumatic, normocephalic. ABDOMEN: Soft. Incisional dressing intact. Colostomy with stool present. Incision granulation tissue and yellowish slough tissue and foul odor drainage n oted distal aspect of incision NEUROLOGIC: awake and alert ASSESSMENT: 1. Colon cancer status post lower anterior resection 2. Anastomotic leak secondary to ischemic colon status post exploratory laparotomy, abdominal washout and colostomy placement 3. Anemia 4. History of coronary disease with stents placed in February 2022 with prior CABG 5. Intra-abdominal sepsis 6. Peritonitis PLAN: -Continue regular diet -Continue TPN at low rate until oral intake increases -Continue to monitor -Continue supportive care -Continue antibiotics -Continue local wound care -Increase activity level -GI prophylaxis Pepcid and DVT prophylaxis subcu heparin [employer] Supervisor note has been reviewed by physician. Signing provider agrees with the documented findings, assessment, and plan of care. Objective - Vital Signs Vital signs: Vital Signs Temp 97.8 F 04/28/22 11:37 Pulse 90 04/28/22 11:50 Resp 18 04/28/22 11:37 BP 113/69 04/28/22 11:37 Pulse Ox 98 04/28/22 11:37 FiO2 2 04/25/22 11:45 Intake & Output 04/27/22 04/28/22 04/28/22 18:59 06:59 18:59 Intake Total 1028 310 Output Total 1425 2200 1300 Balance -397 -1890 -1300 Weight 103.1 kg Intake: Intake, IV Titration 1028 Amount Mvi, Adult No.4 with Vit 1028 K 10 ml Trace (Conc-1Ml/ Dose) 1 ml Calcium Gluconate 1 gm Magnesium Sulfate gm 1 gm Sodium Chloride 4Meq/ml Vial 20 meq In Amino Acid 4.25%- D10w+Lytes*E* 1,000 ml @ 30 mls/hr IV .BY D[facility]ATION [facility] Rx#:[id number] Oral 0 Blood Product 0 310 Rc As-1 Unit 0 310 [id number] Output: Urine 1125 1100 1000 Stool 300 1100 300 Other: Voiding Method Indwelling Catheter Indwelling Catheter Indwelling Catheter ABP, PAP, CO, CI - Last Documented Arterial Blood Pressure 126/50 - Labs CBC & Chem 7: 04/28/22 04:13 04/28/22 04:13 Labs: Abnormal Lab Results - Last 24 Hours (Table) 04/27/22 04/27/22 04/27/22 Range/Units 12:58 17:28 20:15 WBC (4.50-10.00) X 10*3/uL RBC (4.40-5.60) X 10*6/uL Hgb (13.0-17.0) g/dL Hct (39.6-50.0) % MCH (27.0-32.0) pg MCHC (32.0-37.0) g/dL RDW (11.5-14.5) % Plt Count (140-440) X 10*3/uL Immature Gran # (0.00-0.04) X 10*3/uL Neutrophils # (1.80-7.70) X 10*3/uL Monocytes # (0.20-1.00) X 10*3/uL Sodium (137-145) mmol/L BUN (9-20) mg/dL POC Glucose (mg/dL) 160 H 279 H (70-110) mg/dL Calcium (8.4-10.2) mg/dL C-Reactive Protein (<1.0) mg/dL Total Protein (6.3-8.2) g/dL Albumin (3.5-5.0) g/dL Crossmatch See Detail 04/27/22 04/28/22 04/28/22 Range/Units 23:58 04:13 04:13 WBC 12.70 H (4.50-10.00) X 10*3/uL RBC 3.11 L (4.40-5.60) X 10*6/uL Hgb 7.6 L (13.0-17.0) g/dL Hct 26.4 L (39.6-50.0) % MCH 24.4 L (27.0-32.0) pg MCHC 28.8 L (32.0-37.0) g/dL RDW 21.0 H (11.5-14.5) % Plt Count 492 H (140-440) X 10*3/uL Immature Gran # 0.10 H (0.00-0.04) X 10*3/uL Neutrophils # 10.47 H (1.80-7.70) X 10*3/uL Monocytes # 1.03 H (0.20-1.00) X 10*3/uL Sodium 135 L (137-145) mmol/L BUN 30 H (9-20) mg/dL POC Glucose (mg/dL) 183 H (70-110) mg/dL Calcium 8.0 L (8.4-10.2) mg/dL C-Reactive Protein 14.3 H (<1.0) mg/dL Total Protein 5.8 L (6.3-8.2) g/dL Albumin 2.8 L (3.5-5.0) g/dL Crossmatch 04/28/22 Range/Units 11:06 WBC (4.50-10.00) X 10*3/uL RBC (4.40-5.60) X 10*6/uL Hgb (13.0-17.0) g/dL Hct (39.6-50.0) % MCH (27.0-32.0) pg MCHC (32.0-37.0) g/dL RDW (11.5-14.5) % Plt Count (140-440) X 10*3/uL Immature Gran # (0.00-0.04) X 10*3/uL Neutrophils # (1.80-7.70) X 10*3/uL Monocytes # (0.20-1.00) X 10*3/uL Sodium (137-145) mmol/L BUN (9-20) mg/dL POC Glucose (mg/dL) 143 H (70-110) mg/dL Calcium (8.4-10.2) mg/dL C-Reactive Protein (<1.0) mg/dL Total Protein (6.3-8.2) g/dL Albumin (3.5-5.0) g/dL Crossmatch
[2022-04-28 17:28] LABS: Glucose,Whole Blood 253 mg/dL (70-110)
[2022-04-28] MEDS: MELATONIN 3 MG TABLET PO SCH (21:52)
--- NOTE | 2022-04-28 23:54 | P.PN ---
Subjective Progress Note Date: 04/28/22 Principal diagnosis: Intra-abdominal infection Patient is a 72 year old male presented to the hospital with symptomatic anemia did have low anterior resection subsequently did have a anastomosis leak on 04/17/2022 with laparotomy and resection of ischemic portion abdominal culture were disregarded by micro-lab as possible contamination, subsequently did have a fever and more purulent drainage from abdominal incision that prompted with diarrhea infectious disease consultation On today's evaluation that is 04/28/2022, the patient remains to be afebrile, the patient is breathing comfortably on 2 L nasal cannula oxygen, the patient denies having any chest pain or shortness of breath and did have occasional dry Cough, patient denies nausea vomiting and no diarrhea has been reported by the nursing staff Objective - Vital Signs Vital signs: Vital Signs Temp 97.8 F 04/28/22 07:19 Pulse 94 04/28/22 09:10 Resp 18 04/28/22 07:19 BP 121/74 04/28/22 07:19 Pulse Ox 97 04/28/22 08:50 FiO2 2 04/25/22 11:45 Intake & Output 04/27/22 04/28/22 04/28/22 18:59 06:59 18:59 Intake Total 1028 310 Output Total 1425 2200 Balance -397 -1890 Intake: Intake, IV Titration 1028 Amount Mvi, Adult No.4 with Vit 1028 K 10 ml Trace (Conc-1Ml/ Dose) 1 ml Calcium Gluconate 1 gm Magnesium Sulfate gm 1 gm Sodium Chloride 4Meq/ml Vial 20 meq In Amino Acid 4.25%- D10w+Lytes*E* 1,000 ml @ 30 mls/hr IV .BY DURATION [facility] Rx#:[id number] Oral 0 Blood Product 0 310 Rc As-1 Unit 0 310 [id number] Output: Urine 1125 1100 Stool 300 1100 Other: Voiding Method Indwelling Catheter Indwelling Catheter Indwelling Catheter ABP, PAP, CO, CI - Last Documented Arterial Blood Pressure 126/50 - Exam GENERAL DESCRIPTION: An elderly male lying in bed in no distress RESPIRATORY SYSTEM: Unlabored breathing , decreased breath sounds at bases HEART: S1 S2 regular rate and rhythm , ABDOMEN: Soft , no tenderness, abdominal incision is currently dressed EXTREMITIES: No edema feet - Labs CBC & Chem 7: 04/28/22 04:13 04/28/22 04:13 Labs: Abnormal Lab Results - Last 24 Hours (Table) 04/27/22 04/27/22 04/27/22 Range/Units 12:58 17:28 20:15 WBC (4.50-10.00) X 10*3/uL RBC (4.40-5.60) X 10*6/uL Hgb (13.0-17.0) g/dL Hct (39.6-50.0) % MCH (27.0-32.0) pg MCHC (32.0-37.0) g/dL RDW (11.5-14.5) % Plt Count (140-440) X 10*3/uL Immature Gran # (0.00-0.04) X 10*3/uL Neutrophils # (1.80-7.70) X 10*3/uL Monocytes # (0.20-1.00) X 10*3/uL Sodium (137-145) mmol/L BUN (9-20) mg/dL POC Glucose (mg/dL) 160 H 279 H (70-110) mg/dL Calcium (8.4-10.2) mg/dL C-Reactive Protein (<1.0) mg/dL Total Protein (6.3-8.2) g/dL Albumin (3.5-5.0) g/dL Crossmatch See Detail 04/27/22 04/28/22 04/28/22 Range/Units 23:58 04:13 04:13 WBC 12.70 H (4.50-10.00) X 10*3/uL RBC 3.11 L (4.40-5.60) X 10*6/uL Hgb 7.6 L (13.0-17.0) g/dL Hct 26.4 L (39.6-50.0) % MCH 24.4 L (27.0-32.0) pg MCHC 28.8 L (32.0-37.0) g/dL RDW 21.0 H (11.5-14.5) % Plt Count 492 H (140-440) X 10*3/uL Immature Gran # 0.10 H (0.00-0.04) X 10*3/uL Neutrophils # 10.47 H (1.80-7.70) X 10*3/uL Monocytes # 1.03 H (0.20-1.00) X 10*3/uL Sodium 135 L (137-145) mmol/L BUN 30 H (9-20) mg/dL POC Glucose (mg/dL) 183 H (70-110) mg/dL Calcium 8.0 L (8.4-10.2) mg/dL C-Reactive Protein 14.3 H (<1.0) mg/dL Total Protein 5.8 L (6.3-8.2) g/dL Albumin 2.8 L (3.5-5.0) g/dL Crossmatch Assessment and Plan (1) Abdominal wall abscess Current Visit: Yes Status: Acute Code(s): L02.211 - CUTANEOUS ABSCESS OF ABDOMINAL WALL SNOMED Code(s): 23667900 Plan: 1patient with admission to the hospital with symptomatic anemia patient was 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 coli and anaero bes and enterococcus 2the patient fever seemed to have resolved and the white count is down to 12,0 00 IJ should be discontinued as PICC line has been ordered 3-patient to continue with meropenem along with Diflucan 2 weeks on discharge at the bedside questions were answered Time with Patient: Less than 30
[2022-04-29 00:06] LABS: Glucose,Whole Blood 200 mg/dL (70-110)
[2022-04-29] MEDS: HEPARIN SODIUM,PORCINE/PF 5,000 UNIT/0.5 ML SYRINGE SQ SCH ×4 (00:15→23:14)
[2022-04-29] MEDS: INSULIN ASPART (NovoLOG) 100 UNIT/ML VIAL SQ SCH ×5 (00:15→23:14)
--- NOTE | 2022-04-29 01:11 | PN ---
PROGRESS NOTE DATE OF SERVICE: 04/28/2022 SUBJECTIVE: This is a 72-year-old gentleman, who was admitted with sigmoid colon mass and low anterior resection, also had multiple complex medical issues. The patient appears to have some fluid overload at this time. No chest pain. No palpitations. No fever. OBJECTIVE: VITAL SIGNS: Pulse is 88, blood pressure 130/76, respirations 18. CHEST: A few scattered rhonchi and crackles. ABDOMEN: Soft, status post surgery. LEGS: No edema. NERVOUS SYSTEM: Nonfocal. LABORATORY DATA: Reviewed. Hemoglobin 7.6. ASSESSMENT: 1. Sigmoid colon mass, status post low anterior resection. 2. Fluid overload. 3. Anastomotic leak. 4. Acute hypoxic respiratory failure. 5. History of septic shock. 6. Multiple medical issues. RECOMMENDATIONS: Recommend to continue current management and symptomatic treatment. Continue with fluid electrolyte balance closely. Repeat labs in the morning. Closely follow with Surgery. Multiple consultants. Chest x-ray reviewed personally. Prognosis guarded. Further recommendations to follow. Increase ambulation. MMODL / IJN: [id number] /
[2022-04-29] MEDS: HYDROmorphone 1 MG/ML 1 ML SYRINGE IVP PRN ×2 (02:07→15:48)
[2022-04-29] MEDS: MEROPENEM 1 GM in SODIUM CHLORIDE 0.9% 100 ML IVPB SCH ×3 (03:42→21:07)
[2022-04-29 06:06] LABS: Glucose,Whole Blood 57 mg/dL (70-110)
[2022-04-29 06:18] LABS: Glucose,Whole Blood 74 mg/dL (70-110)
[2022-04-29 06:55] LABS: African American GFR (CKD) 70 (>60 ml/min/1.73 sqM); Anion Gap 8 mmol/L; Blood Urea Nitrogen 28 mg/dL (9-20); Calcium 8.1 mg/dL (8.4-10.2); Carbon Dioxide 31 mmol/L (22-30); Chloride 98 mmol/L (98-107); Non-African American GFR(CKD) 60 (>60 ml/min/1.73 sqM); Phosphorus 3.4 mg/dL (2.5-4.5); Sodium 137 mmol/L (137-145)
[2022-04-29 07:24] LABS: Glucose,Whole Blood 86 mg/dL (70-110)
[2022-04-29 07:34] LABS: Glucose 47 mg/dL (74-99)
[2022-04-29 07:50] LABS: Potassium 4.5 mmol/L (3.5-5.1)
[2022-04-29] MEDS: 1: MVI, ADULT NO.4 WITH VIT K 10 ML, TRACE (CONC-1ML/DOSE) 1 ML, CALCIUM GLUCONATE 1 GM, IV SCH ×6 (08:50)
[2022-04-29] MEDS: TAMSULOSIN 0.4 MG CAP.ER.24H PO SCH (09:12)
[2022-04-29] MEDS: HYDROcodone/APAP 5-325MG 1 EACH TAB PO PRN (09:12)
[2022-04-29] MEDS: INSULIN DETEMIR (LEVEMIR) 100 UNIT/ML SYR SQ SCH ×3 (09:12→20:54)
[2022-04-29] MEDS: METOPROLOL TARTRATE 25 MG TAB PO SCH ×2 (09:13→21:06)
[2022-04-29] MEDS: ATORVASTATIN 40 MG TAB PO SCH (09:13)
[2022-04-29] MEDS: FLUCONAZOLE IN NACL,ISO-OSM 200 MG in SALINE 1 100ML.BAG IVPB SCH (09:13)
[2022-04-29] MEDS: ASPIRIN 81 MG PO SCH (09:13)
[2022-04-29] MEDS: FAMOTIDINE 20 MG/2 ML VIAL IV SCH (09:13)
[2022-04-29] MEDS: MIDODRINE 5 MG TAB PO SCH ×4 (09:14→17:15)
[2022-04-29] MEDS: SIMETHICONE 40 MG/0.6 ML DROPS 2,000 MG/30 ML BOTTLE PO SCH ×4 (09:14→21:06)
[2022-04-29] MEDS: FUROSEMIDE 10 MG/ML 4 ML VIAL IV SCH (09:19)
[2022-04-29 09:54] LABS: Basophils # (A) 0.03 X 10*3/uL (0.00-0.10); Basophils % (A) 0.3 %; Eosinophils # (A) 0.02 X 10*3/uL (0.04-0.35); Eosinophils % (A) 0.2 %; HCT 27.3 % (39.6-50.0); Immature Grans, Automated 0.8 %; Lymphocytes # (A) 1.09 X 10*3/uL (0.90-5.00); Lymphocytes % (A) 10.2 %; MCH 25.2 pg (27.0-32.0); MCHC 29.3 g/dL (32.0-37.0); MCV 85.8 fL (80.0-97.0); Mean Platelet Volume 11.3 fL (9.5-12.2); Monocytes # (A) 1.08 X 10*3/uL (0.20-1.00); Monocytes % (A) 10.1 %; NRBC Per 100 WBC 0 /100 WBCS (0.0-0.0); Neutrophils # (A) 8.38 X 10*3/uL (1.80-7.70); Neutrophils % (A) 78.4 %; Platelet Count 510 X 10*3/uL (140-440); RBC 3.18 X 10*6/uL (4.40-5.60); RDW 21.2 % (11.5-14.5); WBC 10.69 X 10*3/uL (4.50-10.00)
[2022-04-29] MEDS ORDERED: LIDOCAINE 1% INJ 10MG/ML (5 ML VIAL-PF) SQ ONE (10:55)
[2022-04-29] MEDS: IPRATROPIUM 0.5 MG/2.5 ML NEBU INHALATION SCH ×4 (11:04→21:55)
[2022-04-29] MEDS: ALBUTEROL NEBULIZED 2.5 MG/3 ML INHALATION SCH ×4 (11:04→21:55)
--- NOTE | 2022-04-29 11:07 | P.PN ---
Subjective Patient is seen in follow-up for acute kidney injury. Underwent exploratory laparotomy with washout of abdomen with colostomy placement on 04/17/2022. Nonoliguric. Renal function stable. TPN discontinued. Nonoliguric. Tolerating oral intake. Denies chest pain or shortness of breath. No active complaints. Vital signs are stable. General: Resting in bed. HEENT: On nasal cannula. LUNGS: No audible rhonchi or wheezes. HEART: Rate and Rhythm are regular. ABDOMEN: Colostomy noted. EXTREMITITES: 1+ edema left lower extremity. No edema right lower extremity. Objective - Vital Signs Vital signs: Vital Signs Temp 97.5 F L 04/29/22 08:00 Pulse 104 H 04/29/22 08:00 Resp 20 04/29/22 08:00 BP 124/71 04/29/22 08:00 Pulse Ox 94 L 04/29/22 08:00 FiO2 2 04/25/22 11:45 Intake & Output 04/28/22 04/29/22 04/29/22 18:59 06:59 18:59 Intake Total 120 Output Total 1850 1200 Balance -1850 -1080 Weight 103.1 kg Intake: Oral 120 Output: Urine 1550 1200 Stool 300 Other: Voiding Method Indwelling Catheter Indwelling Catheter Indwelling Catheter ABP, PAP, CO, CI - Last Documented Arterial Blood Pressure 126/50 - Labs CBC & Chem 7: 04/29/22 05:39 04/29/22 05:39 Labs: Abnormal Lab Results - Last 24 Hours (Table) 04/28/22 04/28/22 04/29/22 Range/Units 11:06 17:27 00:03 WBC (4.50-10.00) X 10*3/uL RBC (4.40-5.60) X 10*6/uL Hgb (13.0-17.0) g/dL Hct (39.6-50.0) % MCH (27.0-32.0) pg MCHC (32.0-37.0) g/dL RDW (11.5-14.5) % Plt Count (140-440) X 10*3/uL Immature Gran # (0.00-0.04) X 10*3/uL Neutrophils # (1.80-7.70) X 10*3/uL Monocytes # (0.20-1.00) X 10*3/uL Eosinophils # (0.04-0.35) X 10*3/uL Carbon Dioxide (22-30) mmol/L BUN (9-20) mg/dL Glucose (74-99) mg/dL POC Glucose (mg/dL) 143 H 253 H 200 H (70-110) mg/dL Calcium (8.4-10.2) mg/dL 04/29/22 04/29/22 04/29/22 Range/Units 05:39 05:39 06:04 WBC 10.69 H (4.50-10.00) X 10*3/uL RBC 3.18 L (4.40-5.60) X 10*6/uL Hgb 8.0 L (13.0-17.0) g/dL Hct 27.3 L (39.6-50.0) % MCH 25.2 L (27.0-32.0) pg MCHC 29.3 L (32.0-37.0) g/dL RDW 21.2 H (11.5-14.5) % Plt Count 510 H (140-440) X 10*3/uL Immature Gran # 0.09 H (0.00-0.04) X 10*3/uL Neutrophils # 8.38 H (1.80-7.70) X 10*3/uL Monocytes # 1.08 H (0.20-1.00) X 10*3/uL Eosinophils # 0.02 L (0.04-0.35) X 10*3/uL Carbon Dioxide 31 H (22-30) mmol/L BUN 28 H (9-20) mg/dL Glucose 47 L* (74-99) mg/dL POC Glucose (mg/dL) 57 L (70-110) mg/dL Calcium 8.1 L (8.4-10.2) mg/dL Assessment and Plan Plan: Assessment: 1. Acute kidney injury secondary to ATN and urinary retention. Creatinine peaked at 2.86 this admission is 1.2 today. No hydronephrosis noted on kidney ultrasound. UA fairly benign. 2. GI bleed status post blood transfusion this admission. Hemoglobin 7.3 04/25/22. 3. 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 Status post exploratory laparotomy with washout of abdomen and colostomy 04/17/2022. 4. Volume overload. On IV Lasix. 5. Metabolic acidosis secondary to acute kidney injury and IV fluids. Also GI losses. s/p bicarb drip. Resolved. 6. Diabetes mellitus. 7. Coronary disease status post CABG and cardiac stenting. 8. Urinary retention. Has Bo catheter. On Flomax. Urology following. 9. Hypokalemia from diuresis and hypomagnesemia. Replaced. Improved. 10. Hypomagnesemia from diuresis and GI losses. Replaced. Improved. Plan: Stop IV Lasix. Add torsemide 20 mg once daily. Check left lower extremity venous Doppler. Continue to monitor renal function and urine output. Avoid nephrotoxins. Maintain midodrine. Hold for systolic blood pressure greater than 110.
--- NOTE | 2022-04-29 11:12 | IR ---
PICC LINE PLACEMENT: HISTORY: Infection requiring long-term antibiotic therapy PROCEDURE: Ultrasound and fluoroscopic guidance of PICC line placement. COMPLICATIONS: None ANESTHESIA: 1. 1% Lidocaine locally. FINDINGS/TECHNIQUE: The procedure was explained to the patient. The risks, complications, benefits and alternatives were discussed and any questions were answered. Informed consent was obtained. The patient was placed supine on the fluoroscopic table and prepped and draped in the usual sterile fash ion. Utilizing a 21 gauge needle and sonographic and fluoroscopic guidance, access in the left basi lic vein was achieved and there is placement of a 0.018 guidewire. The vein is patent. A 4-F sheath was placed over the guidewire. The guidewire and dilator were removed and a 4-F. PICC line was plac ed through the sheath with the tip at the level of the SVC. The sheath was removed, the catheter was flushed and sutured into position. The patient was stable throughout the procedure and remained sta ble upon discharge from the Department of Radiology. The vein puncture was patent under ultrasound. A livingston scale image was obtained to document patency of the vein punctured. All elements of the maximal barrier technique were utilized. FLUOROSCOPY TIME: DAP 0.20Gy cm2 IMPRESSION: Successful PICC line placement under ultrasound and fluoroscopic guidance.
[2022-04-29 11:20] LABS: Glucose,Whole Blood 94 mg/dL (70-110)
--- NOTE | 2022-04-29 13:13 | US ---
EXAMINATION TYPE: US venous doppler duplex LE LT DATE OF EXAM: 04/29/2022 12:57 PM COMPARISON: NONE CLINICAL HISTORY: edema. SIDE PERFORMED: Left TECHNIQUE: The lower extremity deep venous system is examined utilizing real time linear array sonog ev with graded compression, doppler sonography and color-flow sonography. VESSELS IMAGED: Common Femoral Vein Deep Femoral Vein Greater Saphenous Vein * Femoral Vein Popliteal Vein Small Saphenous Vein * Proximal Calf Veins (* superficial vessels) Grayscale, color doppler, spectral doppler imaging performed of the deep veins of the lower extremiti es. There is normal flow, compressibility, vascular waveforms. Left Leg: Negative for DVT IMPRESSION: No ultrasound evidence for deep venous thrombosis of the left lower extremity.
--- NOTE | 2022-04-29 13:13 | P.PN ---
Subjective Progress Note Date: 04/29/22 CHIEF COMPLAINT: Colon mass HISTORY OF PRESENT ILLNESS: Patient had lower anterior resection for sigmoid colon mass on 04/13/2022. He developed anastomotic leak and is status post exploratory laparotomy, washout of abdomen takedown of anastomosis and colostomy in the left upper quadrant for anastomotic leak secondary to ischemic colon on 04/17/22. Patient currently on a regular medical floor. His ostomy is functioning. Oral intake is still diminished. He is on TPN. Patient received his PICC line today for IV antibiotics at discharge. Patient did have some hypoglycemia this morning. WBC is 10.69 hgb 8.0 platelets 510 creatinine 1.2 Patient seen and examined with Dr. Carrera PHYSICAL EXAM: VITAL SIGNS: Reviewed. GENERAL: Well-developed in no acute distress. HEENT: No sclera icterus. Extraocular movements grossly intact. Moist buccal mucosa. Head is atraumatic, normocephalic. ABDOMEN: Soft. Incisional dressing intact. Colostomy with stool present. NEUROLOGIC: confused ASSESSMENT: 1. Colon cancer status post lower anterior resection 2. Anastomotic leak secondary to ischemic colon status post exploratory laparotomy, abdominal washout and colostomy placement 3. Anemia 4. History of coronary disease with stents placed in February 2022 with prior CABG 5. Intra-abdominal sepsis 6. Peritonitis PLAN: -Ordered wound VAC for abdominal incision wound -Continue regular diet -Continue TPN at low rate until oral intake increases -Continue to monitor -Continue supportive care -Continue antibiotics -Continue local wound care -Increase activity level -GI prophylaxis Pepcid and DVT prophylaxis subcu heparin Physician [employer] Developer note has been reviewed by physician. Signing provider agrees with the documented findings, assessment, and plan of care. Objective - Vital Signs Vital signs: Vital Signs Temp 98.6 F 04/29/22 11:53 Pulse 91 04/29/22 11:53 Resp 20 04/29/22 11:53 BP 116/73 04/29/22 11:53 Pulse Ox 95 04/29/22 11:53 FiO2 2 04/25/22 11:45 Intake & Output 04/28/22 04/29/22 04/29/22 18:59 06:59 18:59 Intake Total 120 Output Total 1850 1200 500 Balance -1850 -1080 -500 Weight 103.1 kg Intake: Oral 120 Output: Urine 1550 1200 500 Stool 300 Other: Voiding Method Indwelling Catheter Indwelling Catheter Indwelling Catheter ABP, PAP, CO, CI - Last Documented Arterial Blood Pressure 126/50 - Labs CBC & Chem 7: 04/29/22 05:39 04/29/22 05:39 Labs: Abnormal Lab Results - Last 24 Hours (Table) 04/28/22 04/29/22 04/29/22 Range/Units 17:27 00:03 05:39 WBC (4.50-10.00) X 10*3/uL RBC (4.40-5.60) X 10*6/uL Hgb (13.0-17.0) g/dL Hct (39.6-50.0) % MCH (27.0-32.0) pg MCHC (32.0-37.0) g/dL RDW (11.5-14.5) % Plt Count (140-440) X 10*3/uL Immature Gran # (0.00-0.04) X 10*3/uL Neutrophils # (1.80-7.70) X 10*3/uL Monocytes # (0.20-1.00) X 10*3/uL Eosinophils # (0.04-0.35) X 10*3/uL Carbon Dioxide 31 H (22-30) mmol/L BUN 28 H (9-20) mg/dL Glucose 47 L* (74-99) mg/dL POC Glucose (mg/dL) 253 H 200 H (70-110) mg/dL Calcium 8.1 L (8.4-10.2) mg/dL 04/29/22 04/29/22 Range/Units 05:39 06:04 WBC 10.69 H (4.50-10.00) X 10*3/uL RBC 3.18 L (4.40-5.60) X 10*6/uL Hgb 8.0 L (13.0-17.0) g/dL Hct 27.3 L (39.6-50.0) % MCH 25.2 L (27.0-32.0) pg MCHC 29.3 L (32.0-37.0) g/dL RDW 21.2 H (11.5-14.5) % Plt Count 510 H (140-440) X 10*3/uL Immature Gran # 0.09 H (0.00-0.04) X 10*3/uL Neutrophils # 8.38 H (1.80-7.70) X 10*3/uL Monocytes # 1.08 H (0.20-1.00) X 10*3/uL Eosinophils # 0.02 L (0.04-0.35) X 10*3/uL Carbon Dioxide (22-30) mmol/L BUN (9-20) mg/dL Glucose (74-99) mg/dL POC Glucose (mg/dL) 57 L (70-110) mg/dL Calcium (8.4-10.2) mg/dL
--- NOTE | 2022-04-29 14:22 | P.PN ---
Subjective Progress Note Date: 04/29/22 This is a 72-year-old male patient was brought into the intensive care unit after having his second surgery on 04/17/2022 which involved expiratory laparotomy, the patient had the surgery for an underlying anastomotic leak. The patient underwent a abdominal washout and takedown of anastomosis and colectomy and colostomy in the left upper quadrant. Estimated blood loss was around 25 mL. Postop, the patient was kept intubated on a mechanical ventilator. He was brought into the intensive care unit. He was quite hypotensive. His CVP was low on the eighth. He will received a total of saline boluses and following that he was started on pressors. Currently norepinephrine is running at 0.24 mcg/kg/m. The patient is intubated on a mechanical ventilator. Is currently on propofol at 45 mcg/kg/m and the patient is currently on assist control mode at a rate of 20, tidal volume of 450, FiO2 40% and a PEEP of 5. Note that overnight, the patient was found to be acidotic. He was given IV bicarb and following that he was started on a bicarbonate infusion which is still running at the rate of 150 mL an hour. Serum bicarb today is up to 20. Blood gas from today showed a pH of 7.38 with episodes of 34 and a pO2 of 120 and this was on FiO2 of 50%. WBC count is at 7.5 with a hemoglobin of 8.4 and a platelet count of 243. He did not fluid balance is positive for liters at least over the past 12 hours. The patient remains on IV Zosyn. He is adequately sedated. His colostomy site is light pink without evidence of any necrosis. The patient has no output in the colostomy bag. Surgical 1 site was inspected. The patient has retention sutures. There is leak of serosanguineous/bloody effusion from the one surface. The patient has a large midabdominal incision extending above and below the umbilicus all the way down to his pelvis. He does have scrotal edema. He does have +1 pitting edema. Orogastric tube is also in place. Ultrasound OG is only 200 over the past 8 hours. Note that this patient has history of coronary artery disease with previous bypass surgery and had a recent stent placement in February 2022. He came into the emergency department for shortness of breath. He was found to be intimate with a hemoglobin of 6.9. Given a unit of packed RBC. His fecal occult blood was positive. He underwent EGD and colonoscopy. EGD showed moderately sized hiatal hernia and colonoscopy showed a circumferential sigmoid mass 28 cm from the anal verge and 5 mm rectal polyp. Based on that, the patient was taken to the operating room on 04/13/2022 and the patient underwent a low anterior resection on 04/13/2022. His course was complicated by development of abdominal distention and worsening shortness of breath. This occurred on postoperative day #4. A CAT scan of the abdomen was done yesterday that showed evidence of a moderate to large amount of free intraperitoneal air consistent with anastomotic leak. There was also moderate bilateral pleural effusions. There was small amount of ascites around the liver. There was large hiatal hernia and by the edema. Chest x-ray from today is showing cardiomegaly, bilateral pleural effusion, is about the pulmonary infiltrates, thoracotomy wires, triple-lumen catheter in his left IJ and adequate positioning of the orogastric tube. There is evidence also of bilateral pleural effusions. On 04/19/2022, the patient remains intubated on a mechanical ventilator. The patient is postop day #2. THE patient had an anastomotic leak following bowel surgery in a patient presented to the intensive care following his surgery intubated on a mechanical ventilator. This morning, the patient is on propofol running at 45 mcg/kg/m. His calm and comfortable and symptoms mechanical ventilator. At the same time, is on assist control mode at a rate of 20, tidal volume of 450, FiO2 of 40% with a PEEP of 5. The blood gas from this morning shows a pH of 7.42 pCO2 of 42 and pO2 of 92. The chest x-ray from today is mychal wing bilateral pleural effusion/consolidation is worse on the right. 82 is around 1.5 cm away from judah. Triple-lumen catheter was also placed in his left IJ. Hemodynamically, the patient is on IV fluids and currently is on bicarb infusion running at the rate of 75 mL an hour. His bicarb can be discontinued as the patient's serum bicarb is up to 25. Sodium is at 137 with a potassium level of 3.[address] Urine output is in order of 150 mL an hour. His overall fluid balance over the past 24 hours has been +3.5 L. In terms of hemodynamic support, the patient is on norepinephrine running at 0.1 mcg/kg/m. He also has vasopressin at physiologic dose at 0.03 units an hour. Cardiac rhythm is sinus. The patient was started on TPN for nutritional support which is running at the rate of 30 mL an hour. He is showing some signs of fluid overload with increase in scrotal edema. The colostomy stoma is viable. The tissue looks healthy. There is some liquidy material collecting in the bag. The abdomen is distended. Surgical wound is open and there is some limited serosanguineous material from the surgical one-sided. Orogastric tube in place. Output from the OG has been in the order of 10-20 mL over the past 24 hours. Patient is calm and comfortable. He is running episodes of fever. His T-max was 102. Blood culture is negative. Intra-abdominal cultures are still pending for now. The 2022, the patient's postop day #3 following his surgery for anastomotic leak, colectomy and diverticular colostomy. On today's evaluation, the patient remains on a mechanical ventilator. He is currently on propofol which is running at 45 mcg/kg/m and his well rested. He remains on a mechanical ventilator. He is on assist control mode at the rate of 20, tidal volume of 450, FiO2 of 40% and PEEP of 5. The chest x-ray from today shows cardiomegaly, ET tube is in a good location, the patient has a triple-lumen cath in the right IJ. There is also evidence of bilateral pleural effusion which is essentially unchanged compared to yesterday and the findings of essentially stable for now. The blood gas shows a pH of 7.48 with a pCO2 of 39 and pO2 of 79. The patient is quite segments on mechanical ventilator. Hemodynamically, the patient is on KVO IV fluids. He did have significant fluid resuscitation. And IV fluids were cut down yesterday. He remains on pressors and norepinephrine is running at the rate of 0.03 mcg/kg/m. As such, his blood pressure has stabilized and he was also taken off the vasopressin. Cardiac rhythm is still sinus. Urine output is adequate for now. The patient was also started on TPN for nutritional support. On today's evaluation, the surgical wound is draining purulent foul-smelling material. The colostomy is viable and there is stool output in the colostomy bag. In terms of cultures, the wound needs to be cultured. The blood culture is negative. The abdominal wound cultures collected intraoperatively are still pending for now. The patient remains on IV Zosyn for now. Blood work shows a dull retrosternal 9 with a hemoglobin of 7.5 and a platelet count of 204. The sodium is at 135, potassium is to be replaced at 2.9 and the patient has a BUN of 22 with a creatinine of 1.36 and his acute kidney injury is also improving. Blood sugars at 202. Patient is on Levemir insulin 25 units twice a day and is also on sliding scale insulin coverage. Blood sugars under adequate control for now. Reevaluated today on 04/21/2022, patient is now postoperative day #4. Patient is status post surgery for an anastomotic leak, colectomy and diverticular colostomy. Remains in the ICU intubated and mechanically ventilated. He is on assist control rate of 20 tidal volume 450 FiO2 40% and PEEP of 5 ABG showed a pO2 of 97 pCO2 of 40 pH of 7.51 as no changes were made in the vent settings. Patient is still requiring norepinephrine at 0.02 mcg/kg/m propofol at 45 mcg/kg/m is also on TPN at 59 mL/h. Patient has good urine output, his ostomy seems to be functional. Chest x-ray continues to show small bilateral pleural effusions, endotracheal tube and catheters are in the proper position. WBC count is 12.2 hemoglobin is 7.7, basic metabolic profile is normal renal profile showed a BUN of 19 and creatinine of 1.34, steadily improving over the last 10 days. Patient is now sedated, and I plan to hold sedation on this patient today, address weaning parameters, and possibly give the patient weaning trial. Reevaluated today on 04/22/2022, patient remains in the ICU, he was extubated yesterday to BiPAP, and he remained overnight. Patient is on 12/6 and 40% FiO2 however after evaluating the patient today I switch him to nasal cannula. Patient is not in any distress. He is arousable, follows very simple instructions. And he is not in any distress his ostomy seems to be functioning he is still receiving TPN at 64 mL per hour and his IV fluid is at KVO. Continues to have good urine output WBC count is 12.4 hemoglobin 7.8 electrolytes are normal renal profile is showing improvement creatinine is down to 1.33. Chest x-ray continues to show small bilateral pleural effusions and mild pulmonary vascular congestion and cardiomegaly Reevaluated today on , remains in the ICU, patient tolerated extubation well for the last 2 days. Off BiPAP, on nasal cannula, O2 saturation is in the mid 90s on 2 L nasal cannula. Patient had low-grade temp last night, 99.6. He is hemodynamically stable, not in any distress, at times noted to be a bit lethargic and confused by the nurse, but on physical examination today, the patient seems to be quite appropriate. WBC count is 13.5 hemoglobin 7.6 basic metabolic profile is normal renal profile showed a creatinine of 1.23, steadily improving. Different cultures from the wound and from the abdomen were noted. Blood cultures have been negative. No chest x-ray was done today, but chest x- ray from yesterday showed small bilateral pleural effusions and mild pulmonary vascular congestion. Patient did receive Lasix yesterday. Reevaluated today on 04/24/2022, patient remains in the ICU, doing fairly well, no major issues overnight. Patient still doing a bit poorly with incentive spirometry, he has been up in the chair, continues to have scrotal edema and that's quite significant continues to have bipedal edema now he is on a maintenance dose of Lasix 20 mg twice a day. His antibiotics have been changed per infectious disease now he is on Merrem and daptomycin as well as Diflucan. Today I am cutting down the TPN to have dose since the patient is already tolerating oral intake. Tomorrow will likely discontinue TPN and go to full diet. Hemoglobin is a bit low today at 6.9, may consider transfusing the patient if the hemoglobin continues to drift down. Baseline has been in the 7.5 range for the last 5 days basic metabolic profile is normal renal profile is normal except for creatinine of 1.26, slightly worse today compared to yesterday and it was 1.23 yesterday. Patient is being followed by nephrology.. No chest x-ray has been done. The patient is seen today 04/25/2022 in follow-up on the regular medical floor. He was transferred out of the intensive care unit yesterday. He was doing quite well. Maintaining good O2 saturations in the 90s on 2 L/m per nasal cannula. Chest x-ray reveals bilateral infiltrate and pleural effusion stable. Slight improvement. He's been afebrile. Hemodynamically stable. He did receive 1 unit of packed red blood cells yesterday. Current hemoglobin 7.3. Blood cultures positive for gram-negative bacilli in the abdominal wound. White count 14.9. Hemoglobin 7.3. Platelets 458. Sodium 134. Potassium 4.6. Bicarb 29. BUN 31. Creatinine 1.27. Glucose 98. He remains on IV diuretics. Currently in a positive balance. Remains on antibiotics in the form of meropenem and daptomycin. Continued on Diflucan. Being nourished with TPN. Tolerating a full liquid diet. He did have some issues with confusion through the night and had pulled off his colostomy bag, pulled off his dressing and packing to his open abdominal wound. Pulled out his IV. The patient is seen today 04/26/2022 in follow-up on the regular medical floor. He is currently sitting up in bed. More awake and alert. Cooperative. private branch exchange operator at the bedside. Denies any worsening shortness of breath, cough or congestion. He is maintaining good O2 saturations in the 90s on 2 L/m per nasal cannula. BUN nourished with TPN at 36 ML's per hour. He is tolerating a full liquid diet. Abdominal wound cultures are positive for Enterobacter cloacae, Enterococcus faecalis and E. coli. Sodium 135. Potassium 4.5. Bicarb 28. BUN 32. Creatinine 1.22. Glucose 68. He is continued on fluconazole, daptomycin and meropenem. Remains on IV diuretics. Currently in a -2.2 L balance The patient is seen today 04/27/2022 in follow-up on the regular medical floor. He is awake and alert in no acute distress. Oriented 2. private branch exchange operator at the bedside. No worsening shortness of breath, cough or congestion. Maintaining O2 saturations in the 90s on room air. Recurrent fever 100.8. Remains on meropenem, Diflucan. Heparin for DVT prophylaxis. Nutritional support with TPN at 30 MLS per hour. Tolerating a clear liquid diet being advanced to full liquid per surgical services. White count 14.7. Hemoglobin 6.8. Platelets 513. Sodium 137. Potassium 4.5. Bicarb 30. BUN 31. Creatinine 1.25. Glucose 168. The patient is seen today 04/29/2022 in follow-up on the regular medical floor. He is currently sitting up in a chair at the bedside.. Awake and alert. No worsening shortness of breath, cough or congestion. Currently maintaining O2 saturations in the 90s on room air. He is tolerating a regular diet. TPN still at 30 MLS per hour. He had a PICC line placed today for long-term antibiotic therapy. Abdominal wound cultures were positive for Enterobacter cloacae, E. coli, Enterococcus faecalis. He was having some issues with left lower extremity edema and Doppler ruled out DVT. White count 10.6. Hemoglobin 8.0. Sodium 137. Potassium 4.5. Bicarb 31. BUN 28. Creatinine 1.20. Initial glucose 47. Currently 94. He remains on meropenem, Diflucan. Heparin for DVT prophylaxis. Continued on bronchodilators. Objective - Vital Signs Vital signs: Vital Signs Temp 98.6 F 04/29/22 11:53 Pulse 91 04/29/22 11:53 Resp 20 04/29/22 11:53 BP 116/73 04/29/22 11:53 Pulse Ox 95 04/29/22 11:53 FiO2 2 04/25/22 11:45 Intake & Output 04/28/22 04/29/22 04/29/22 18:59 06:59 18:59 Intake Total 120 Output Total 1850 1200 500 Balance -1850 -1080 -500 Weight 103.1 kg Intake: Oral 120 Output: Urine 1550 1200 500 Stool 300 Other: Voiding Method Indwelling Catheter Indwelling Catheter Indwelling Catheter ABP, PAP, CO, CI - Last Documented Arterial Blood Pressure 126/50 - Exam GENERAL EXAM: Alert, oriented x 2, 72-year-old male patient, up in a chair at the bedside, on room air, comfortable in no apparent distress. HEAD: Normocephalic. EYES: Normal reaction of pupils, equal size. NOSE: Clear with pink turbinates. THROAT: No erythema or exudates. NECK: No masses, no JVD. Left IJ catheter remains in place CHEST: No chest wall deformity. LUNGS: Equal air entry with few crackles in the posterior bases. CVS: S1 and S2 normal with no audible murmur, regular rhythm. ABDOMEN: Colostomy in the left upper quadrant. The colon tissue is pink and viable. His stool output in the colostomy bag. The patient has a open midabdominal incision with serosanguineous/bloody fluid seeping from the wound surface. No direct tenderness. No rebound tenderness. Positive bowel sounds. Quite significant scrotal edema noted. SPINE: No scoliosis or deformity SKIN: No rashes CENTRAL NERVOUS SYSTEM: No focal deficits, tone is normal in all 4 extremities. EXTREMITIES: There is 1-2+ peripheral edema. No clubbing, no cyanosis. Peripheral pulses are intact. - Labs CBC & Chem 7: 04/29/22 05:39 04/29/22 05:39 Labs: Abnormal Lab Results - Last 24 Hours (Table) 04/28/22 04/29/22 04/29/22 Range/Units 17:27 00:03 05:39 WBC (4.50-10.00) X 10*3/uL RBC (4.40-5.60) X 10*6/uL Hgb (13.0-17.0) g/dL Hct (39.6-50.0) % MCH (27.0-32.0) pg MCHC (32.0-37.0) g/dL RDW (11.5-14.5) % Plt Count (140-440) X 10*3/uL Immature Gran # (0.00-0.04) X 10*3/uL Neutrophils # (1.80-7.70) X 10*3/uL Monocytes # (0.20-1.00) X 10*3/uL Eosinophils # (0.04-0.35) X 10*3/uL Carbon Dioxide 31 H (22-30) mmol/L BUN 28 H (9-20) mg/dL Glucose 47 L* (74-99) mg/dL POC Glucose (mg/dL) 253 H 200 H (70-110) mg/dL Calcium 8.1 L (8.4-10.2) mg/dL 04/29/22 04/29/22 Range/Units 05:39 06:04 WBC 10.69 H (4.50-10.00) X 10*3/uL RBC 3.18 L (4.40-5.60) X 10*6/uL Hgb 8.0 L (13.0-17.0) g/dL Hct 27.3 L (39.6-50.0) % MCH 25.2 L (27.0-32.0) pg MCHC 29.3 L (32.0-37.0) g/dL RDW 21.2 H (11.5-14.5) % Plt Count 510 H (140-440) X 10*3/uL Immature Gran # 0.09 H (0.00-0.04) X 10*3/uL Neutrophils # 8.38 H (1.80-7.70) X 10*3/uL Monocytes # 1.08 H (0.20-1.00) X 10*3/uL Eosinophils # 0.02 L (0.04-0.35) X 10*3/uL Carbon Dioxide (22-30) mmol/L BUN (9-20) mg/dL Glucose (74-99) mg/dL POC Glucose (mg/dL) 57 L (70-110) mg/dL Calcium (8.4-10.2) mg/dL Assessment and Plan Assessment: Acute hypoxic respiratory failure secondary to abdominal sepsis and septic shock, patient was extubated uneventfully on 04/21/2022. Currently stable on room air Acute surgical abdomen secondary to anastomotic leak following a sigmoid rese ction and low AP resection from initial surgery performed on 04/13/2022, status post left colectomy and diverting colostomy Septic shock secondary to above secondary to abdominal sepsis, remains on ant ibiotics. 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 Current hemoglobin 8.0. Type 2 diabetes Dyslipidemia Anasarca and scrotal edema secondary to hypoproteinemia patient is presently on TPN. Valvular heart disease with moderate degree of mitral regurgitation and severe tricuspid regurgitation with pulmonary hypertension Underlying COPD Benign prostatic hypertrophy Plan: The patient was seen and evaluated Medications and labs reviewed Tolerating a regular diet TPN/lipids discontinue PICC line placed today Continue meropenem, Diflucan Continued on diuretics Encourage increased use of the incentive spirometer private branch exchange operator at the bedside We will continue to follow I have personally seen and examined the patient, performed the documentation and the assessment and plan as written. Number of minutes spent on the visit: 10.
[2022-04-29 17:01] LABS: Glucose,Whole Blood 109 mg/dL (70-110)
--- NOTE | 2022-04-29 18:47 | P.PN ---
Subjective Progress Note Date: 04/29/22 Principal diagnosis: Intra-abdominal infection Patient is a 72 year old male presented to the hospital with symptomatic anemia did have low anterior resection subsequently did have a anastomosis leak on 04/17/2022 with laparotomy and resection of ischemic portion abdominal culture were disregarded by micro-lab as possible contamination, subsequently did have a fever and more purulent drainage from abdominal incision that prompted with diarrhea infectious disease consultation On today's evaluation that is 04/29/2022, the patient continues to be afebrile, the patient is breathing comfortably on room air, the patient denies having any chest pain or shortness of breath and did have occasional dry Cough, patient denies nausea vomiting and no diarrhea Objective - Vital Signs Vital signs: Vital Signs Temp 97.5 F L 04/29/22 08:00 Pulse 104 H 04/29/22 08:00 Resp 20 04/29/22 08:00 BP 124/71 04/29/22 08:00 Pulse Ox 94 L 04/29/22 08:00 FiO2 2 04/25/22 11:45 Intake & Output 04/28/22 04/29/22 04/29/22 18:59 06:59 18:59 Intake Total 120 Output Total 1850 1200 Balance -1850 -1080 Weight 103.1 kg Intake: Oral 120 Output: Urine 1550 1200 Stool 300 Other: Voiding Method Indwelling Catheter Indwelling Catheter Indwelling Catheter ABP, PAP, CO, CI - Last Documented Arterial Blood Pressure 126/50 - Exam GENERAL DESCRIPTION: An elderly male lying in bed in no distress RESPIRATORY SYSTEM: Unlabored breathing , decreased breath sounds at bases HEART: S1 S2 regular rate and rhythm , ABDOMEN: Soft , no tenderness, abdominal incision is currently dressed EXTREMITIES: No edema feet Patient did have stage II sacral pressure ulcer , no cellulitis - Labs CBC & Chem 7: 04/29/22 05:39 04/29/22 05:39 Labs: Abnormal Lab Results - Last 24 Hours (Table) 04/28/22 04/28/22 04/29/22 Range/Units 11:06 17:27 00:03 WBC (4.50-10.00) X 10*3/uL RBC (4.40-5.60) X 10*6/uL Hgb (13.0-17.0) g/dL Hct (39.6-50.0) % MCH (27.0-32.0) pg MCHC (32.0-37.0) g/dL RDW (11.5-14.5) % Plt Count (140-440) X 10*3/uL Immature Gran # (0.00-0.04) X 10*3/uL Neutrophils # (1.80-7.70) X 10*3/uL Monocytes # (0.20-1.00) X 10*3/uL Eosinophils # (0.04-0.35) X 10*3/uL Carbon Dioxide (22-30) mmol/L BUN (9-20) mg/dL Glucose (74-99) mg/dL POC Glucose (mg/dL) 143 H 253 H 200 H (70-110) mg/dL Calcium (8.4-10.2) mg/dL 04/29/22 04/29/22 04/29/22 Range/Units 05:39 05:39 06:04 WBC 10.69 H (4.50-10.00) X 10*3/uL RBC 3.18 L (4.40-5.60) X 10*6/uL Hgb 8.0 L (13.0-17.0) g/dL Hct 27.3 L (39.6-50.0) % MCH 25.2 L (27.0-32.0) pg MCHC 29.3 L (32.0-37.0) g/dL RDW 21.2 H (11.5-14.5) % Plt Count 510 H (140-440) X 10*3/uL Immature Gran # 0.09 H (0.00-0.04) X 10*3/uL Neutrophils # 8.38 H (1.80-7.70) X 10*3/uL Monocytes # 1.08 H (0.20-1.00) X 10*3/uL Eosinophils # 0.02 L (0.04-0.35) X 10*3/uL Carbon Dioxide 31 H (22-30) mmol/L BUN 28 H (9-20) mg/dL Glucose 47 L* (74-99) mg/dL POC Glucose (mg/dL) 57 L (70-110) mg/dL Calcium 8.1 L (8.4-10.2) mg/dL Assessment and Plan (1) Abdominal wall abscess Current Visit: Yes Status: Acute Code(s): L02.211 - CUTANEOUS ABSCESS OF ABDOMINAL WALL SNOMED Code(s): 59562439 Plan: 1patient with admission to the hospital with symptomatic anemia patient was 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 coli and anaerobes and enterococcus 2the patient fever seemed to have resolved and the white count has normalized the patient did get a PICC line and IJ has been discontinued 3-patient to continue with meropenem along with Diflucan which will be transitioned to oral 2 weeks on discharge , will benefit from a wound VAC to the abdominal wound Time with Patient: Less than 30
[2022-04-29] MEDS: MELATONIN 3 MG TABLET PO SCH (21:06)
[2022-04-29 23:14] LABS: Glucose,Whole Blood 152 mg/dL (70-110)
[2022-04-30] MEDS: HYDROcodone/APAP 5-325MG 1 EACH TAB PO PRN ×3 (01:52→19:13)
--- NOTE | 2022-04-30 02:29 | P.PN ---
Subjective Progress Note Date: 04/29/22 This is a 72-year-old male who was recently admitted with sigmoid colon mass underwent low anterior resection and has had multiple complex medical issues ongoing. Patient did require emergent surgery for leak requiring further bowel surgery ending in ostomy with multiple medical consultations following. Patient with poor oral intake has been maintained on TPN although diet has been advanced and working on weaning off TPN. Patient received a PICC line for IV antibiotic therapy outpatient with infectious disease following closely. Patient with abdominal wound with wound VAC being ordered which surgery continuing to follow. Patient continues on volume overload with nephrology following as well and has received Lasix and being transitioned to torsemide. Recommend PT/OT therapy daily with social work following work and discharge planning to [facility] once patient is medically stable and cleared by consultations. Patient is currently afebrile with no reports of chest pain or shortness of breath noted. Review of systems: Constitutional: No reports of fatigue, fever, or chills Cardiovascular: No reports of chest pain or palpitations Respiratory: No reports of shortness of breath or cough GI: no reports of nausea, no reports of vomiting, no diarrhea, poor oral intake : No reports of dysuria or retention, , having some retention requiring Bo Neurovascular: reports of generalized weakness All medications have been reviewed Active Medications Acetaminophen (Acetaminophen Tab 500 Mg Tab) 1,000 mg PO Q6HR PRN PRN Reason: Fever and/ or Pain Last Admin: 04/27/22 12:18 Dose: 1,000 mg Hydrocodone Bitart/Acetaminophen (Hydrocodone/Apap 5-325mg 1 Each Tab) 1 each PO Q4HR PRN PRN Reason: Moderate Pain (Scale 4 to 6) Last Admin: 04/30/22 01:52 Dose: 1 each Albuterol Sulfate (Albuterol Nebulized 2.5 Mg/3 Ml) 2.5 mg INHALATION RT-Q2H PRN PRN Reason: Shortness Of Breath Or Wheezing Albuterol Sulfate (Albuterol Nebulized 2.5 Mg/3 Ml) 2.5 mg INHALATION RT-QID [facility] Last Admin: 04/29/22 21:55 Dose: 2.5 mg Aspirin (Aspirin 81 Mg) 81 mg PO DAILY [facility] Last Admin: 04/29/22 09:13 Dose: 81 mg Atorvastatin Calcium (Atorvastatin 40 Mg Tab) 40 mg PO DAILY [facility] Last Admin: 04/29/22 09:13 Dose: 40 mg Benzocaine/Menthol (Benzocaine/Menthol Lozeng 1 Each Lozenge) 1 each MUCOUS MEM Q1HR PRN PRN Reason: Sore Throat Last Admin: 04/23/22 09:33 Dose: 1 each Dextrose/Water (Dextrose 50% Syringe 50 Ml) 25 ml IVP PER PROTOCOL PRN; Protocol PRN Reason: Hypoglycemia Dextrose/Water (Dextrose 50% Syringe 50 Ml) 50 ml IVP PER PROTOCOL PRN; Protocol PRN Reason: Hypoglycemia Famotidine (Famotidine 20 Mg/2 Ml Vial) 20 mg IV DAILY [facility] Last Admin: 04/29/22 09:13 Dose: 20 mg Heparin Sodium (Porcine) (Heparin Sodium,Porcine/Pf 5,000 Unit/0.5 Ml Syringe) 5,000 unit SQ Q8HR [facility] Last Admin: 04/29/22 23:14 Dose: 5,000 unit Hydromorphone HCl (Hydromorphone 1 Mg/Ml 1 Ml Syringe) 1 mg IVP Q4HR PRN PRN Reason: Severe Pain (Scale 7 to 10) Last Admin: 04/29/22 15:48 Dose: 1 mg Fluconazole/Sodium Chloride (200 mg/ IV Solution) 100 mls @ 100 mls/hr IVPB DAILY [facility]; Protocol Last Admin: 04/29/22 09:13 Dose: 100 mls/hr Meropenem 1 gm/ Sodium (Chloride) 100 mls @ 33.3 mls/hr IVPB Q8H [facility]; Protocol Last Admin: 04/29/22 21:07 Dose: 33.3 mls/hr Insulin Aspart (Insulin Aspart (Novolog) 100 Unit/Ml Vial) 0 unit SQ Q6H [facility]; Protocol Last Admin: 04/29/22 23:14 Dose: Not Given Insulin Detemir (Insulin Detemir (Levemir) 100 Unit/Ml Syr) 30 unit SQ BID@0700,2100 [facility] Last Admin: 04/29/22 20:54 Dose: Not Given Ipratropium [place] (Ipratropium 0.5 Mg/2.5 Ml Nebu) 0.5 mg INHALATION RT-Q2H PRN PRN Reason: Shortness Of Breath Or Wheezing Ipratropium [place] (Ipratropium 0.5 Mg/2.5 Ml Nebu) 0.5 mg INHALATION RT-QID [facility] Last Admin: 04/29/22 21:55 Dose: 0.5 mg Melatonin (Melatonin 3 Mg Tablet) 3 mg PO HS [facility] Last Admin: 04/29/22 21:06 Dose: 3 mg Metoprolol Tartrate (Metoprolol Tartrate 25 Mg Tab) 25 mg PO BID [facility] Last Admin: 04/29/22 21:06 Dose: 25 mg Midodrine (Midodrine 5 Mg Tab) 5 mg PO AC-TID [facility] Last Admin: 04/29/22 17:15 Dose: Not Given Miscellaneous Information (Potassium Replacement Protocol 1 Each Misc) 1 each MISCELLANE DAILY PRN; Protocol PRN Reason: Per Protocol Miscellaneous Information (Magnesium Replacement Protocol 1 Each Mis) 1 each MISCELLANE DAILY PRN; Protocol PRN Reason: Per Protocol Naloxone HCl (Naloxone 0.4 Mg/Ml 1 Ml Vial) 0.2 mg IV Q2M PRN PRN Reason: Opioid Reversal Nitroglycerin (Nitroglycerin Sl Tabs 0.4 Mg Tab) 0.4 mg SUBLINGUAL Q5M PRN PRN Reason: Chest Pain Ondansetron HCl (Ondansetron 4 Mg/2 Ml Vial) 4 mg IVP Q8HR PRN PRN Reason: Nausea And Vomiting Last Admin: 04/24/22 08:50 Dose: 4 mg Simethicone (Simethicone 40 Mg/0.6 Ml Drops 2,000 Mg/30 Ml Bottle) 40 mg PO QID [facility] Last Admin: 04/29/22 21:06 Dose: 40 mg Tamsulosin HCl (Tamsulosin 0.4 Mg Cap.Er.24h) 0.4 mg PO PC-[id number] [facility] Last Admin: 04/29/22 09:12 Dose: 0.4 mg Torsemide (Torsemide 20 Mg Tab) 20 mg PO DAILY [facility] PHYSICAL EXAMINATION: GENERAL: The patient is alert and oriented x2, Well developed, well nourished. Elderly-appearing male Obese HEENT: Pupils are round and equally reacting to light. EOMI. no scleral icterus. No conjunctival pallor. Normocephalic, atraumatic. No pharyngeal erythema. No thyromegaly. CARDIOVASCULAR: S1 and S2 muffled PULMONARY: diminished breath sounds bilaterally with some scattered rhonchi with crackles in noted. ABDOMEN: soft. tender on exam. obese. non-distended, normoactive bowel sounds. No palpable organomegaly. Ostomy noted MUSCULOSKELETAL: No joint swelling or deformity. EXTREMITIES: No cyanosis, clubbing, or pedal edema. Mild generalized edema of lower extremities NEUROLOGICAL: Gross neurological examination did not reveal any focal deficits. Diffuse weakness SKIN: No rashes. Assessment: Sigmoid colon mass, status post low anterior resection with anastomotic leak with revision with end colostomy, secondary to ischemic colon Fluid volume overload Acute hypoxic respiratory failure History of septic shock History of diabetes mellitus Hypertension History of COPD, not an exacerbation GI prophylaxis DVT prophylaxis Full code Plan: Recommend to continue with current medications and management with multiple medical consultations following. Nephrology following patient has been maintained on Lasix continues with overload being transitioned to torsemide General surgery following and has had multiple complications including abdominal wound and end colostomy and wound VAC being ordered Patient with continued poor oral intake and protein calorie malnutrition has b een maintained on TPN which is being weaned off and encouraged oral intake with diet being advanced slowly Patient with prolonged hospitalization would recommend PT/OT therapy daily and planning on [facility] facility with social work following. Patient received a PICC line and arranging for IV antibiotics outpatient Continue with local wound care and will follow-up with repeat labs in a.m. Due to multiple complex medical issues, prognosis is guarded The impression and plan of care has been dictated by Erinn Story, nurse practitioner as directed. Dr. Cresencio MD I have performed a history and examination and MDM of this patient, discussed the same with the dictator, and agree with the dictator's assessment and plan as written ,documented as a scribe. Based on total visit time, I have performed more than 50% of the visit. Any additional findings or plans will be noted. Objective - Vital Signs Vital signs: Vital Signs Temp 98.2 F 04/30/22 01:14 Pulse 95 04/30/22 01:14 Resp 18 04/30/22 01:14 BP 129/73 04/30/22 01:14 Pulse Ox 95 04/30/22 01:14 FiO2 2 04/25/22 11:45 Intake & Output 04/29/22 04/29/22 04/30/22 06:59 18:59 06:59 Intake Total 120 Output Total 1200 1150 Balance -1080 -1150 Intake: Oral 120 Output: Urine 1200 1150 Other: Voiding Method Indwelling Catheter Indwelling Catheter Indwelling Catheter # Bowel Movements 50 ABP, PAP, CO, CI - Last Documented Arterial Blood Pressure 126/50 - Labs CBC & Chem 7: 04/29/22 05:39 04/29/22 05:39 Labs: Abnormal Lab Results - Last 24 Hours (Table) 04/29/22 04/29/22 04/29/22 Range/Units 05:39 05:39 06:04 WBC 10.69 H (4.50-10.00) X 10*3/uL RBC 3.18 L (4.40-5.60) X 10*6/uL Hgb 8.0 L (13.0-17.0) g/dL Hct 27.3 L (39.6-50.0) % MCH 25.2 L (27.0-32.0) pg MCHC 29.3 L (32.0-37.0) g/dL RDW 21.2 H (11.5-14.5) % Plt Count 510 H (140-440) X 10*3/uL Immature Gran # 0.09 H (0.00-0.04) X 10*3/uL Neutrophils # 8.38 H (1.80-7.70) X 10*3/uL Monocytes # 1.08 H (0.20-1.00) X 10*3/uL Eosinophils # 0.02 L (0.04-0.35) X 10*3/uL Carbon Dioxide 31 H (22-30) mmol/L BUN 28 H (9-20) mg/dL Glucose 47 L* (74-99) mg/dL POC Glucose (mg/dL) 57 L (70-110) mg/dL Calcium 8.1 L (8.4-10.2) mg/dL 04/29/22 Range/Units 23:11 WBC (4.50-10.00) X 10*3/uL RBC (4.40-5.60) X 10*6/uL Hgb (13.0-17.0) g/dL Hct (39.6-50.0) % MCH (27.0-32.0) pg MCHC (32.0-37.0) g/dL RDW (11.5-14.5) % Plt Count (140-440) X 10*3/uL Immature Gran # (0.00-0.04) X 10*3/uL Neutrophils # (1.80-7.70) X 10*3/uL Monocytes # (0.20-1.00) X 10*3/uL Eosinophils # (0.04-0.35) X 10*3/uL Carbon Dioxide (22-30) mmol/L BUN (9-20) mg/dL Glucose (74-99) mg/dL POC Glucose (mg/dL) 152 H (70-110) mg/dL Calcium (8.4-10.2) mg/dL
[2022-04-30] MEDS: MEROPENEM 1 GM in SODIUM CHLORIDE 0.9% 100 ML IVPB SCH ×3 (03:44→19:12)
[2022-04-30 05:46] LABS: Glucose,Whole Blood 167 mg/dL (70-110)
[2022-04-30] MEDS: INSULIN ASPART (NovoLOG) 100 UNIT/ML VIAL SQ SCH ×3 (05:47→18:02)
[2022-04-30 08:03] LABS: African American GFR (CKD) 77 (>60 ml/min/1.73 sqM); Anion Gap 8 mmol/L; Blood Urea Nitrogen 26 mg/dL (9-20); Carbon Dioxide 28 mmol/L (22-30); Chloride 99 mmol/L (98-107); Glucose 136 mg/dL (74-99); Magnesium 1.9 mg/dL (1.6-2.3); Non-African American GFR(CKD) 67 (>60 ml/min/1.73 sqM); Potassium 4.7 mmol/L (3.5-5.1); Sodium 135 mmol/L (137-145)
[2022-04-30] MEDS: ALBUTEROL NEBULIZED 2.5 MG/3 ML INHALATION SCH ×4 (09:06→19:35)
[2022-04-30] MEDS: IPRATROPIUM 0.5 MG/2.5 ML NEBU INHALATION SCH ×4 (09:06→19:35)
[2022-04-30] MEDS: INSULIN DETEMIR (LEVEMIR) 100 UNIT/ML SYR SQ SCH ×2 (09:32→20:52)
--- NOTE | 2022-04-30 10:21 | XR ---
EXAMINATION TYPE: XR chest 1V portable DATE OF EXAM: 04/30/2022 COMPARISON: 04/28/2022 HISTORY: Pain TECHNIQUE: Single frontal view of the chest is obtained. FINDINGS: The heart is enlarged and there is persistent bilateral pleural effusion and left lower lo be consolidation. A left-sided PICC line is noted. Underlying COPD suspected there is mild interstiti al thickening. No pneumothorax. IMPRESSION: 1. Stable bilateral infiltrate pleural effusion correlate for mild CHF superimposed on a background o f COPD.
[2022-04-30 10:38] LABS: Basophils # (A) 0.06 X 10*3/uL (0.00-0.10); Basophils % (A) 0.7 %; Eosinophils # (A) 0.02 X 10*3/uL (0.04-0.35); Eosinophils % (A) 0.2 %; HCT 27.9 % (39.6-50.0); HGB 8.1 g/dL (13.0-17.0); Immature Grans, Automated 0.9 %; Lymphocytes # (A) 0.93 X 10*3/uL (0.90-5.00); Lymphocytes % (A) 10.3 %; MCH 24.9 pg (27.0-32.0); MCV 85.8 fL (80.0-97.0); Mean Platelet Volume 10.9 fL (9.5-12.2); Monocytes # (A) 0.94 X 10*3/uL (0.20-1.00); Monocytes % (A) 10.4 %; NRBC Per 100 WBC 0 /100 WBCS (0.0-0.0); Neutrophils # (A) 6.97 X 10*3/uL (1.80-7.70); Neutrophils % (A) 77.5 %; Platelet Count 426 X 10*3/uL (140-440); RBC 3.25 X 10*6/uL (4.40-5.60); RDW 21.8 % (11.5-14.5)
[2022-04-30] MEDS: MIDODRINE 5 MG TAB PO SCH ×3 (10:56→16:40)
[2022-04-30] MEDS: TAMSULOSIN 0.4 MG CAP.ER.24H PO SCH (10:56)
[2022-04-30] MEDS: TORSEMIDE 20 MG TAB PO SCH (10:57)
[2022-04-30] MEDS: ATORVASTATIN 40 MG TAB PO SCH (10:57)
[2022-04-30] MEDS: ASPIRIN 81 MG PO SCH (10:57)
[2022-04-30] MEDS: METOPROLOL TARTRATE 25 MG TAB PO SCH ×2 (10:57→21:06)
[2022-04-30] MEDS: FAMOTIDINE 20 MG/2 ML VIAL IV SCH (11:04)
[2022-04-30] MEDS: FLUCONAZOLE IN NACL,ISO-OSM 200 MG in SALINE 1 100ML.BAG IVPB SCH (11:05)
[2022-04-30] MEDS: HEPARIN SODIUM,PORCINE/PF 5,000 UNIT/0.5 ML SYRINGE SQ SCH ×2 (11:05→16:13)
[2022-04-30] MEDS: SIMETHICONE 40 MG/0.6 ML DROPS 2,000 MG/30 ML BOTTLE PO SCH ×4 (11:06→21:07)
[2022-04-30 11:32] LABS: Glucose,Whole Blood 146 mg/dL (70-110)
--- NOTE | 2022-04-30 12:04 | P.PN ---
Subjective Progress Note Date: 04/30/22 This is a 72-year-old male patient was brought into the intensive care unit after having his second surgery on 04/17/2022 which involved expiratory laparotomy, the patient had the surgery for an underlying anastomotic leak. The patient underwent a abdominal washout and takedown of anastomosis and colectomy and colostomy in the left upper quadrant. Estimated blood loss was around 25 mL. Postop, the patient was kept intubated on a mechanical ventilator. He was brought into the intensive care unit. He was quite hypotensive. His CVP was low on the eighth. He will received a total of saline boluses and following that he was started on pressors. Currently norepinephrine is running at 0.24 mcg/kg/m. The patient is intubated on a mechanical ventilator. Is currently on propofol at 45 mcg/kg/m and the patient is currently on assist control mode at a rate of 20, tidal volume of 450, FiO2 40% and a PEEP of 5. Note that overnight, the patient was found to be acidotic. He was given IV bicarb and following that he was started on a bicarbonate infusion which is still running at the rate of 150 mL an hour. Serum bicarb today is up to 20. Blood gas from today showed a pH of 7.38 with episodes of 34 and a pO2 of 120 and this was on FiO2 of 50%. WBC count is at 7.5 with a hemoglobin of 8.4 and a platelet count of 243. He did not fluid balance is positive for liters at least over the past 12 hours. The patient remains on IV Zosyn. He is adequately sedated. His colostomy site is light pink without evidence of any necrosis. The patient has no output in the colostomy bag. Surgical 1 site was inspected. The patient has retention sutures. There is leak of serosanguineous/bloody effusion from the one surface. The patient has a large midabdominal incision extending above and below the umbilicus all the way down to his pelvis. He does have scrotal edema. He does have +1 pitting edema. Orogastric tube is also in place. Ultrasound OG is only 200 over the past 8 hours. Note that this patient has history of coronary artery disease with previous bypass surgery and had a recent stent placement in February 2022. He came into the emergency department for shortness of breath. He was found to be intimate with a hemoglobin of 6.9. Given a unit of packed RBC. His fecal occult blood was positive. He underwent EGD and colonoscopy. EGD showed moderately sized hiatal hernia and colonoscopy showed a circumferential sigmoid mass 28 cm from the anal verge and 5 mm rectal polyp. Based on that, the patient was taken to the operating room on 04/13/2022 and the patient underwent a low anterior resection on 04/13/2022. His course was complicated by development of abdominal distention and worsening shortness of breath. This occurred on postoperative day #4. A CAT scan of the abdomen was done yesterday that showed evidence of a moderate to large amount of free intraperitoneal air consistent with anastomotic leak. There was also moderate bilateral pleural effusions. There was small amount of ascites around the liver. There was large hiatal hernia and by the edema. Chest x-ray from today is showing cardiomegaly, bilateral pleural effusion, is about the pulmonary infiltrates, thoracotomy wires, triple-lumen catheter in his left IJ and adequate positioning of the orogastric tube. There is evidence also of bilateral pleural effusions. On 04/19/2022, the patient remains intubated on a mechanical ventilator. The patient is postop day #2. THE patient had an anastomotic leak following bowel surgery in a patient presented to the intensive care following his surgery intubated on a mechanical ventilator. This morning, the patient is on propofol running at 45 mcg/kg/m. His calm and comfortable and symptoms mechanical ventilator. At the same time, is on assist control mode at a rate of 20, tidal volume of 450, FiO2 of 40% with a PEEP of 5. The blood gas from this morning shows a pH of 7.42 pCO2 of 42 and pO2 of 92. The chest x-ray from today is mychal wing bilateral pleural effusion/consolidation is worse on the right. 82 is around 1.5 cm away from judah. Triple-lumen catheter was also placed in his left IJ. Hemodynamically, the patient is on IV fluids and currently is on bicarb infusion running at the rate of 75 mL an hour. His bicarb can be discontinued as the patient's serum bicarb is up to 25. Sodium is at 137 with a potassium level of 3.[address] Urine output is in order of 150 mL an hour. His overall fluid balance over the past 24 hours has been +3.5 L. In terms of hemodynamic support, the patient is on norepinephrine running at 0.1 mcg/kg/m. He also has vasopressin at physiologic dose at 0.03 units an hour. Cardiac rhythm is sinus. The patient was started on TPN for nutritional support which is running at the rate of 30 mL an hour. He is showing some signs of fluid overload with increase in scrotal edema. The colostomy stoma is viable. The tissue looks healthy. There is some liquidy material collecting in the bag. The abdomen is distended. Surgical wound is open and there is some limited serosanguineous material from the surgical one-sided. Orogastric tube in place. Output from the OG has been in the order of 10-20 mL over the past 24 hours. Patient is calm and comfortable. He is running episodes of fever. His T-max was 102. Blood culture is negative. Intra-abdominal cultures are still pending for now. The 2022, the patient's postop day #3 following his surgery for anastomotic leak, colectomy and diverticular colostomy. On today's evaluation, the patient remains on a mechanical ventilator. He is currently on propofol which is running at 45 mcg/kg/m and his well rested. He remains on a mechanical ventilator. He is on assist control mode at the rate of 20, tidal volume of 450, FiO2 of 40% and PEEP of 5. The chest x-ray from today shows cardiomegaly, ET tube is in a good location, the patient has a triple-lumen cath in the right IJ. There is also evidence of bilateral pleural effusion which is essentially unchanged compared to yesterday and the findings of essentially stable for now. The blood gas shows a pH of 7.48 with a pCO2 of 39 and pO2 of 79. The patient is quite segments on mechanical ventilator. Hemodynamically, the patient is on KVO IV fluids. He did have significant fluid resuscitation. And IV fluids were cut down yesterday. He remains on pressors and norepinephrine is running at the rate of 0.03 mcg/kg/m. As such, his blood pressure has stabilized and he was also taken off the vasopressin. Cardiac rhythm is still sinus. Urine output is adequate for now. The patient was also started on TPN for nutritional support. On today's evaluation, the surgical wound is draining purulent foul-smelling material. The colostomy is viable and there is stool output in the colostomy bag. In terms of cultures, the wound needs to be cultured. The blood culture is negative. The abdominal wound cultures collected intraoperatively are still pending for now. The patient remains on IV Zosyn for now. Blood work shows a dull retrosternal 9 with a hemoglobin of 7.5 and a platelet count of 204. The sodium is at 135, potassium is to be replaced at 2.9 and the patient has a BUN of 22 with a creatinine of 1.36 and his acute kidney injury is also improving. Blood sugars at 202. Patient is on Levemir insulin 25 units twice a day and is also on sliding scale insulin coverage. Blood sugars under adequate control for now. Reevaluated today on 04/21/2022, patient is now postoperative day #4. Patient is status post surgery for an anastomotic leak, colectomy and diverticular colostomy. Remains in the ICU intubated and mechanically ventilated. He is on assist control rate of 20 tidal volume 450 FiO2 40% and PEEP of 5 ABG showed a pO2 of 97 pCO2 of 40 pH of 7.51 as no changes were made in the vent settings. Patient is still requiring norepinephrine at 0.02 mcg/kg/m propofol at 45 mcg/kg/m is also on TPN at 59 mL/h. Patient has good urine output, his ostomy seems to be functional. Chest x-ray continues to show small bilateral pleural effusions, endotracheal tube and catheters are in the proper position. WBC count is 12.2 hemoglobin is 7.7, basic metabolic profile is normal renal profile showed a BUN of 19 and creatinine of 1.34, steadily improving over the last 10 days. Patient is now sedated, and I plan to hold sedation on this patient today, address weaning parameters, and possibly give the patient weaning trial. Reevaluated today on 04/22/2022, patient remains in the ICU, he was extubated yesterday to BiPAP, and he remained overnight. Patient is on 12/6 and 40% FiO2 however after evaluating the patient today I switch him to nasal cannula. Patient is not in any distress. He is arousable, follows very simple instructions. And he is not in any distress his ostomy seems to be functioning he is still receiving TPN at 64 mL per hour and his IV fluid is at KVO. Continues to have good urine output WBC count is 12.4 hemoglobin 7.8 electrolytes are normal renal profile is showing improvement creatinine is down to 1.33. Chest x-ray continues to show small bilateral pleural effusions and mild pulmonary vascular congestion and cardiomegaly Reevaluated today on , remains in the ICU, patient tolerated extubation well for the last 2 days. Off BiPAP, on nasal cannula, O2 saturation is in the mid 90s on 2 L nasal cannula. Patient had low-grade temp last night, 99.6. He is hemodynamically stable, not in any distress, at times noted to be a bit lethargic and confused by the nurse, but on physical examination today, the patient seems to be quite appropriate. WBC count is 13.5 hemoglobin 7.6 basic metabolic profile is normal renal profile showed a creatinine of 1.23, steadily improving. Different cultures from the wound and from the abdomen were noted. Blood cultures have been negative. No chest x-ray was done today, but chest x- ray from yesterday showed small bilateral pleural effusions and mild pulmonary vascular congestion. Patient did receive Lasix yesterday. Reevaluated today on 04/24/2022, patient remains in the ICU, doing fairly well, no major issues overnight. Patient still doing a bit poorly with incentive spirometry, he has been up in the chair, continues to have scrotal edema and that's quite significant continues to have bipedal edema now he is on a maintenance dose of Lasix 20 mg twice a day. His antibiotics have been changed per infectious disease now he is on Merrem and daptomycin as well as Diflucan. Today I am cutting down the TPN to have dose since the patient is already tolerating oral intake. Tomorrow will likely discontinue TPN and go to full diet. Hemoglobin is a bit low today at 6.9, may consider transfusing the patient if the hemoglobin continues to drift down. Baseline has been in the 7.5 range for the last 5 days basic metabolic profile is normal renal profile is normal except for creatinine of 1.26, slightly worse today compared to yesterday and it was 1.23 yesterday. Patient is being followed by nephrology.. No chest x-ray has been done. The patient is seen today 04/25/2022 in follow-up on the regular medical floor. He was transferred out of the intensive care unit yesterday. He was doing quite well. Maintaining good O2 saturations in the 90s on 2 L/m per nasal cannula. Chest x-ray reveals bilateral infiltrate and pleural effusion stable. Slight improvement. He's been afebrile. Hemodynamically stable. He did receive 1 unit of packed red blood cells yesterday. Current hemoglobin 7.3. Blood cultures positive for gram-negative bacilli in the abdominal wound. White count 14.9. Hemoglobin 7.3. Platelets 458. Sodium 134. Potassium 4.6. Bicarb 29. BUN 31. Creatinine 1.27. Glucose 98. He remains on IV diuretics. Currently in a positive balance. Remains on antibiotics in the form of meropenem and daptomycin. Continued on Diflucan. Being nourished with TPN. Tolerating a full liquid diet. He did have some issues with confusion through the night and had pulled off his colostomy bag, pulled off his dressing and packing to his open abdominal wound. Pulled out his IV. The patient is seen today 04/26/2022 in follow-up on the regular medical floor. He is currently sitting up in bed. More awake and alert. Cooperative. child care sitter at the bedside. Denies any worsening shortness of breath, cough or congestion. He is maintaining good O2 saturations in the 90s on 2 L/m per nasal cannula. BUN nourished with TPN at 36 ML's per hour. He is tolerating a full liquid diet. Abdominal wound cultures are positive for Enterobacter cloacae, Enterococcus faecalis and E. coli. Sodium 135. Potassium 4.5. Bicarb 28. BUN 32. Creatinine 1.22. Glucose 68. He is continued on fluconazole, daptomycin and meropenem. Remains on IV diuretics. Currently in a -2.2 L balance The patient is seen today 04/27/2022 in follow-up on the regular medical floor. He is awake and alert in no acute distress. Oriented 2. child care sitter at the bedside. No worsening shortness of breath, cough or congestion. Maintaining O2 saturations in the 90s on room air. Recurrent fever 100.8. Remains on meropenem, Diflucan. Heparin for DVT prophylaxis. Nutritional support with TPN at 30 MLS per hour. Tolerating a clear liquid diet being advanced to full liquid per surgical services. White count 14.7. Hemoglobin 6.8. Platelets 513. Sodium 137. Potassium 4.5. Bicarb 30. BUN 31. Creatinine 1.25. Glucose 168. The patient is seen today 04/29/2022 in follow-up on the regular medical floor. He is currently sitting up in a chair at the bedside.. Awake and alert. No worsening shortness of breath, cough or congestion. Currently maintaining O2 saturations in the 90s on room air. He is tolerating a regular diet. TPN still at 30 MLS per hour. He had a PICC line placed today for long-term antibiotic therapy. Abdominal wound cultures were positive for Enterobacter cloacae, E. coli, Enterococcus faecalis. He was having some issues with left lower extremity edema and Doppler ruled out DVT. White count 10.6. Hemoglobin 8.0. Sodium 137. Potassium 4.5. Bicarb 31. BUN 28. Creatinine 1.20. Initial glucose 47. Currently 94. He remains on meropenem, Diflucan. Heparin for DVT prophylaxis. Continued on bronchodilators. The patient is seen today 04/30/2022 in follow-up on the regular medical floor. He remains awake and alert in no acute distress. Sitting up in a chair at the bedside. Maintaining O2 saturations in the 90s on room air. Chest x-ray reveals stable bilateral infiltrates/pleural effusions with mild CHF. Remains on oral diuretics. No IV fluids. He has a PICC line placed. Antibiotics per ID services. Remains on bronchodilators. Currently on meropenem, Diflucan. White count 9.0. Hemoglobin 8.1. Platelets 426. Sodium 135. Potassium 4.7. Bicarb 28. BUN 26. Creatinine 1.10. Glucose 136. Objective - Vital Signs Vital signs: Vital Signs Temp 98.2 F 04/30/22 10:31 Pulse 72 04/30/22 11:53 Resp 19 04/30/22 10:31 BP 124/78 04/30/22 10:31 Pulse Ox 93 L 04/30/22 10:31 FiO2 2 04/25/22 11:45 Intake & Output 04/29/22 04/30/22 04/30/22 18:59 06:59 18:59 Output Total 1150 525 800 Balance -1150 -525 -800 Output: Urine 1150 525 Stool 800 Other: Voiding Method Indwelling Catheter Indwelling Catheter Indwelling Catheter # Bowel Movements 50 ABP, PAP, CO, CI - Last Documented Arterial Blood Pressure 126/50 - Exam GENERAL EXAM: Alert, 72-year-old male patient, up in a chair, on room air, comfortable in no apparent distress. HEAD: Normocephalic. EYES: Normal reaction of pupils, equal size. NOSE: Clear with pink turbinates. THROAT: No erythema or exudates. NECK: No masses, no JVD. Left IJ catheter remains in place CHEST: No chest wall deformity. LUNGS: Equal air entry with few crackles in the posterior bases. CVS: S1 and S2 normal with no audible murmur, regular rhythm. ABDOMEN: Colostomy in the left upper quadrant. The colon tissue is pink and viable. His stool output in the colostomy bag. The patient has a open midabdominal incision. No direct tenderness. No rebound tenderness. Positive bowel sounds. Scrotal edema noted. SPINE: No scoliosis or deformity SKIN: No rashes CENTRAL NERVOUS SYSTEM: No focal deficits, tone is normal in all 4 extremities. EXTREMITIES: PICC line to the upper extremities. There is 1-2+ peripheral edema. No clubbing, no cyanosis. Peripheral pulses are intact. - Labs CBC & Chem 7: 04/30/22 07:17 04/30/22 07:17 Labs: Abnormal Lab Results - Last 24 Hours (Table) 04/29/22 04/30/22 04/30/22 Range/Units 23:11 05:42 07:17 RBC (4.40-5.60) X 10*6/uL Hgb (13.0-17.0) g/dL Hct (39.6-50.0) % MCH (27.0-32.0) pg MCHC (32.0-37.0) g/dL RDW (11.5-14.5) % Immature Gran # (0.00-0.04) X 10*3/uL Eosinophils # (0.04-0.35) X 10*3/uL Sodium 135 L (137-145) mmol/L BUN 26 H (9-20) mg/dL Glucose 136 H (74-99) mg/dL POC Glucose (mg/dL) 152 H 167 H (70-110) mg/dL Calcium 8.0 L (8.4-10.2) mg/dL 03/22/23 03/22/23 Range/Units 07:17 11:29 RBC 3.25 L (4.40-5.60) X 10*6/uL Hgb 8.1 L (13.0-17.0) g/dL Hct 27.9 L (39.6-50.0) % MCH 24.9 L (27.0-32.0) pg MCHC 29.0 L (32.0-37.0) g/dL RDW 21.8 H (11.5-14.5) % Immature Gran # 0.08 H (0.00-0.04) X 10*3/uL Eosinophils # 0.02 L (0.04-0.35) X 10*3/uL Sodium (137-145) mmol/L BUN (9-20) mg/dL Glucose (74-99) mg/dL POC Glucose (mg/dL) 146 H (70-110) mg/dL Calcium (8.4-10.2) mg/dL Assessment and Plan Assessment: Acute hypoxic respiratory failure secondary to abdominal sepsis and septic shock, patient was extubated uneventfully on 04/21/2022. Currently stable on room air Acute surgical abdomen secondary to anastomotic leak following a sigmoid resection and low AP resection from initial surgery performed on 04/13/2022, status post left colectomy and diverting colostomy Septic shock secondary to above secondary to abdominal sepsis, remains on antibiotics. 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 Current hemoglobin 8.1. Diabetes mellitus, Type 2 Dyslipidemia Anasarca and scrotal edema secondary to hypoproteinemia patient is presently on TPN. Valvular heart disease with moderate degree of mitral regurgitation and severe tricuspid regurgitation with pulmonary hypertension Underlying COPD Benign prostatic hypertrophy Plan: The patient was seen and evaluated Chest x-ray, medications and labs reviewed Tolerating a regular diet Antibiotics per ID service Continued on diuretics Encourage increased use of the incentive spirometer For discharge to the ECF from the pulmonary standpoint I have personally seen and examined the patient, performed the documentation and the assessment and plan as written. Number of minutes spent on the visit: 10.
--- NOTE | 2022-04-30 14:23 | P.PN ---
Subjective Progress Note Date: 04/30/22 CHIEF COMPLAINT: Colon mass HISTORY OF PRESENT ILLNESS: Patient had lower anterior resection for sigmoid colon mass on 04/13/2022. He developed anastomotic leak and is status post exploratory laparotomy, washout of abdomen takedown of anastomosis and colostomy in the left upper quadrant for anastomotic leak secondary to ischemic colon on 04/17/22. Patient's ostomy is functioning. His oral intake has improved. TPN was discontinued yesterday. They're working on possible ECF placement today. Patient has wound VAC in place. Patient continues to be confused. Afebrile. WBC is 9 hgb 8.1 Patient seen and examined with Dr. Carrera PHYSICAL EXAM: VITAL SIGNS: Reviewed. GENERAL: Well-developed in no acute distress. HEENT: No sclera icterus. Extraocular movements grossly intact. Moist buccal mucosa. Head is atraumatic, normocephalic. ABDOMEN: Soft. Incisional dressing intact. Colostomy with stool present. NEUROLOGIC: confused ASSESSMENT: 1. Colon cancer status post lower anterior resection 2. Anastomotic leak secondary to ischemic colon status post exploratory laparotomy, abdominal washout and colostomy placement 3. Anemia 4. History of coronary disease with stents placed in February 2022 with prior CABG 5. Intra-abdominal sepsis 6. Peritonitis PLAN: -Patient can be discharged surgical standpoint -Discontinue Bo catheter -Discharge antibiotics per infectious disease -Continue regular diet Physician Policy Manager note has been reviewed by physician. Signing provider agrees with the documented findings, assessment, and plan of care. Objective - Vital Signs Vital signs: Vital Signs Temp 98.6 F 04/30/22 14:00 Pulse 91 04/30/22 14:00 Resp 19 04/30/22 14:00 BP 104/68 04/30/22 14:00 Pulse Ox 94 L 04/30/22 14:00 FiO2 2 04/25/22 11:45 Intake & Output 04/29/22 04/30/22 04/30/22 18:59 06:59 18:59 Output Total 1150 525 800 Balance -1150 -525 -800 Output: Urine 1150 525 Stool 800 Other: Voiding Method Indwelling Catheter Indwelling Catheter Indwelling Catheter # Bowel Movements 50 ABP, PAP, CO, CI - Last Documented Arterial Blood Pressure 126/50 - Labs CBC & Chem 7: 04/30/22 07:17 03/22/23 07:17 Labs: Abnormal Lab Results - Last 24 Hours (Table) 04/29/22 04/30/22 04/30/22 Range/Units 23:11 05:42 07:17 RBC (4.40-5.60) X 10*6/uL Hgb (13.0-17.0) g/dL Hct (39.6-50.0) % MCH (27.0-32.0) pg MCHC (32.0-37.0) g/dL RDW (11.5-14.5) % Immature Gran # (0.00-0.04) X 10*3/uL Eosinophils # (0.04-0.35) X 10*3/uL Sodium 135 L (137-145) mmol/L BUN 26 H (9-20) mg/dL Glucose 136 H (74-99) mg/dL POC Glucose (mg/dL) 152 H 167 H (70-110) mg/dL Calcium 8.0 L (8.4-10.2) mg/dL 04/30/22 04/30/22 Range/Units 07:17 11:29 RBC 3.25 L (4.40-5.60) X 10*6/uL Hgb 8.1 L (13.0-17.0) g/dL Hct 27.9 L (39.6-50.0) % MCH 24.9 L (27.0-32.0) pg MCHC 29.0 L (32.0-37.0) g/dL RDW 21.8 H (11.5-14.5) % Immature Gran # 0.08 H (0.00-0.04) X 10*3/uL Eosinophils # 0.02 L (0.04-0.35) X 10*3/uL Sodium (137-145) mmol/L BUN (9-20) mg/dL Glucose (74-99) mg/dL POC Glucose (mg/dL) 146 H (70-110) mg/dL Calcium (8.4-10.2) mg/dL
--- NOTE | 2022-04-30 14:55 | P.PN ---
Subjective Patient is seen in follow-up for acute kidney injury. Underwent exploratory laparotomy with washout of abdomen with colostomy placement on 04/17/2022. Nonoliguric. Renal function stable. On oral diuretics. TPN discontinued. Tolerating oral intake. Denies chest pain or shortness of breath. No active complaints. Vital signs are stable. General: Resting in bed. HEENT: On nasal cannula. LUNGS: No audible rhonchi or wheezes. HEART: Rate and Rhythm are regular. ABDOMEN: Colostomy noted. EXTREMITITES: 1+ edema left lower extremity. No edema right lower extremity. Objective - Vital Signs Vital signs: Vital Signs Temp 98.6 F 04/30/22 14:00 Pulse 91 04/30/22 14:00 Resp 19 04/30/22 14:00 BP 104/68 04/30/22 14:00 Pulse Ox 94 L 04/30/22 14:00 FiO2 2 04/25/22 11:45 Intake & Output 04/29/22 04/30/22 04/30/22 18:59 06:59 18:59 Output Total 1150 525 800 Balance -1150 -525 -800 Weight 103.1 kg Output: Urine 1150 525 Stool 800 Other: Voiding Method Indwelling Catheter Indwelling Catheter Indwelling Catheter # Bowel Movements 50 ABP, PAP, CO, CI - Last Documented Arterial Blood Pressure 126/50 - Labs CBC & Chem 7: 04/30/22 07:17 04/30/22 07:17 Labs: Abnormal Lab Results - Last 24 Hours (Table) 04/29/22 04/30/22 04/30/22 Range/Units 23:11 05:42 07:17 RBC (4.40-5.60) X 10*6/uL Hgb (13.0-17.0) g/dL Hct (39.6-50.0) % MCH (27.0-32.0) pg MCHC (32.0-37.0) g/dL RDW (11.5-14.5) % Immature Gran # (0.00-0.04) X 10*3/uL Eosinophils # (0.04-0.35) X 10*3/uL Sodium 135 L (137-145) mmol/L BUN 26 H (9-20) mg/dL Glucose 136 H (74-99) mg/dL POC Glucose (mg/dL) 152 H 167 H (70-110) mg/dL Calcium 8.0 L (8.4-10.2) mg/dL 04/30/22 04/30/22 Range/Units 07:17 11:29 RBC 3.25 L (4.40-5.60) X 10*6/uL Hgb 8.1 L (13.0-17.0) g/dL Hct 27.9 L (39.6-50.0) % MCH 24.9 L (27.0-32.0) pg MCHC 29.0 L (32.0-37.0) g/dL RDW 21.8 H (11.5-14.5) % Immature Gran # 0.08 H (0.00-0.04) X 10*3/uL Eosinophils # 0.02 L (0.04-0.35) X 10*3/uL Sodium (137-145) mmol/L BUN (9-20) mg/dL Glucose (74-99) mg/dL POC Glucose (mg/dL) 146 H (70-110) mg/dL Calcium (8.4-10.2) mg/dL Assessment and Plan Plan: Assessment: 1. Acute kidney injury secondary to ATN and urinary retention. Creatinine peaked at 2.86 this admission is 1.1 today. No hydronephrosis noted on kidney ultrasound. UA fairly benign. 2. GI bleed status post blood transfusion this admission. Hemoglobin 7.3 04/25/22. 3. 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 Status post exploratory laparotomy with washout of abdomen and colostomy 04/17/2022. 4. Volume overload. On IV Lasix. 5. Metabolic acidosis secondary to acute kidney injury and IV fluids. Also GI losses. s/p bicarb drip. Resolved. 6. Diabetes mellitus. 7. Coronary disease status post CABG and cardiac stenting. 8. Urinary retention. Has Bo catheter. On Flomax. Urology following. 9. Hypokalemia from diuresis and hypomagnesemia. Replaced. Improved. 10. Hypomagnesemia from diuresis and GI losses. Replaced. Improved. Plan: Stop IV Lasix. Maintain torsemide. No evidence of DVT. Continue to monitor renal function and urine output. Avoid nephrotoxins. Maintain midodrine. Hold for systolic blood pressure greater than 110. Repeat BMP and magnesium of 2-3 days postdischarge. Follow up outpatient in 1-2 weeks.
[2022-04-30 17:43] LABS: Glucose,Whole Blood 95 mg/dL (70-110)
--- NOTE | 2022-04-30 19:02 | P.PN ---
Subjective Progress Note Date: 04/30/22 This is a 72-year-old male who was recently admitted with sigmoid colon mass underwent low anterior resection and has had multiple complex medical issues ongoing. Patient did require emergent surgery for leak requiring further bowel surgery ending in ostomy with multiple medical consultations following. Patient with poor oral intake has been maintained on TPN although diet has been advanced and working on weaning off TPN. Patient received a PICC line for IV antibiotic therapy outpatient with infectious disease following closely. Patient with abdominal wound with wound VAC being ordered which surgery continuing to follow. Patient continues on volume overload with nephrology following as well and has received Lasix and being transitioned to torsemide. Recommend PT/OT therapy daily with social work following work and discharge planning to [facility] once patient is medically stable and cleared by consultations. Patient is currently afebrile with no reports of chest pain or shortness of breath noted. 04/30/2022 Patient is seen in follow-up as morning currently sitting up in the chair continues with significant weakness working on ECF planning. Social work follow ing and it appears [facility] cannot accommodate the patient with no bed availability. Patient family would like him to be close to her in the [facility] and social work has made other referrals which are currently pending. Patient has received a PICC line and will continue on IV antibiotic therapy in addition to oral antibiotics for the next 2 weeks. Patient continued with indwelling Bo catheter and for surgery okay to remove and trial void. Patient is continued on torsemide low-dose with nephrology following closely recommend monitoring closely in the outpatient setting with follow-up in 1-2 weeks and repeat labs. Patient is currently afebrile with no reports of shortness of breath or chest pain. Patient is tolerating diet although not eating very much. Ostomy is functioning and continuing with local wound care. Review of systems: Constitutional: No reports of fatigue, fever, or chills Cardiovascular: No reports of chest pain or palpitations Respiratory: No reports of shortness of breath or cough GI: no reports of nausea, no reports of vomiting, no diarrhea, poor oral intake : No reports of dysuria or retention, currently trial voiding Neurovascular: reports of generalized weakness All medications have been reviewed Active Medications Acetaminophen (Acetaminophen Tab 500 Mg Tab) 1,000 mg PO Q6HR PRN PRN Reason: Fever and/ or Pain Last Admin: 04/27/22 12:18 Dose: 1,000 mg Hydrocodone Bitart/Acetaminophen (Hydrocodone/Apap 5-325mg 1 Each Tab) 1 each PO Q4HR PRN PRN Reason: Moderate Pain (Scale 4 to 6) Last Admin: 04/30/22 11:29 Dose: 1 each Albuterol Sulfate (Albuterol Nebulized 2.5 Mg/3 Ml) 2.5 mg INHALATION RT-Q2H PRN PRN Reason: Shortness Of Breath Or Wheezing Albuterol Sulfate (Albuterol Nebulized 2.5 Mg/3 Ml) 2.5 mg INHALATION RT-QID [facility] Last Admin: 04/30/22 16:24 Dose: 2.5 mg Aspirin (Aspirin 81 Mg) 81 mg PO DAILY [facility] Last Admin: 04/30/22 10:57 Dose: 81 mg Atorvastatin Calcium (Atorvastatin 40 Mg Tab) 40 mg PO DAILY [facility] Last Admin: 04/30/22 10:57 Dose: 40 mg Benzocaine/Menthol (Benzocaine/Menthol Lozeng 1 Each Lozenge) 1 each MUCOUS MEM Q1HR PRN PRN Reason: Sore Throat Last Admin: 04/23/22 09:33 Dose: 1 each Dextrose/Water (Dextrose 50% Syringe 50 Ml) 25 ml IVP PER PROTOCOL PRN; Protocol PRN Reason: Hypoglycemia Dextrose/Water (Dextrose 50% Syringe 50 Ml) 50 ml IVP PER PROTOCOL PRN; Protocol PRN Reason: Hypoglycemia Famotidine (Famotidine 20 Mg/2 Ml Vial) 20 mg IV DAILY [facility] Last Admin: 04/30/22 11:04 Dose: 20 mg Heparin Sodium (Porcine) (Heparin Sodium,Porcine/Pf 5,000 Unit/0.5 Ml Syringe) 5,000 unit SQ Q8HR [facility] Last Admin: 04/30/22 16:13 Dose: Not Given Hydromorphone HCl (Hydromorphone 1 Mg/Ml 1 Ml Syringe) 1 mg IVP Q4HR PRN PRN Reason: Severe Pain (Scale 7 to 10) Last Admin: 04/29/22 15:48 Dose: 1 mg Fluconazole/Sodium Chloride (200 mg/ IV Solution) 100 mls @ 100 mls/hr IVPB DAILY [facility]; Protocol Last Admin: 04/30/22 11:05 Dose: 100 mls/hr Meropenem 1 gm/ Sodium (Chloride) 100 mls @ 33.3 mls/hr IVPB Q8H [facility]; Protocol Last Admin: 04/30/22 14:19 Dose: 33.3 mls/hr Insulin Aspart (Insulin Aspart (Novolog) 100 Unit/Ml Vial) 0 unit SQ Q6H [facility]; Protocol Last Admin: 04/30/22 18:02 Dose: Not Given Insulin Detemir (Insulin Detemir (Levemir) 100 Unit/Ml Syr) 30 unit SQ BID@0700,2100 [facility] Last Admin: 04/30/22 09:32 Dose: 30 unit Ipratropium [place] (Ipratropium 0.5 Mg/2.5 Ml Nebu) 0.5 mg INHALATION RT-Q2H PRN PRN Reason: Shortness Of Breath Or Wheezing Ipratropium [place] (Ipratropium 0.5 Mg/2.5 Ml Nebu) 0.5 mg INHALATION RT-QID [facility] Last Admin: 04/30/22 16:24 Dose: 0.5 mg Melatonin (Melatonin 3 Mg Tablet) 3 mg PO HS [facility] Last Admin: 04/29/22 21:06 Dose: 3 mg Metoprolol Tartrate (Metoprolol Tartrate 25 Mg Tab) 25 mg PO BID [facility] Last Admin: 04/30/22 10:57 Dose: 25 mg Midodrine (Midodrine 5 Mg Tab) 5 mg PO AC-TID [facility] Last Admin: 04/30/22 16:40 Dose: Not Given Miscellaneous Information (Potassium Replacement Protocol 1 Each Misc) 1 each MISCELLANE DAILY PRN; Protocol PRN Reason: Per Protocol Miscellaneous Information (Magnesium Replacement Protocol 1 Each Misc) 1 each MISCELLANE DAILY PRN; Protocol PRN Reason: Per Protocol Naloxone HCl (Naloxone 0.4 Mg/Ml 1 Ml Vial) 0.2 mg IV Q2M PRN PRN Reason: Opioid Reversal Nitroglycerin (Nitroglycerin Sl Tabs 0.4 Mg Tab) 0.4 mg SUBLINGUAL Q5M PRN PRN Reason: Chest Pain Ondansetron HCl (Ondansetron 4 Mg/2 Ml Vial) 4 mg IVP Q8HR PRN PRN Reason: Nausea And Vomiting Last Admin: 04/24/22 08:50 Dose: 4 mg Simethicone (Simethicone 40 Mg/0.6 Ml Drops 2,000 Mg/30 Ml Bottle) 40 mg PO QID [facility] Last Admin: 04/30/22 16:56 Dose: 40 mg Tamsulosin HCl (Tamsulosin 0.4 Mg Cap.Er.24h) 0.4 mg PO PC-BRKFST [facility] Last Admin: 04/30/22 10:56 Dose: 0.4 mg Torsemide (Torsemide 20 Mg Tab) 20 mg PO DAILY [facility] Last Admin: 04/30/22 10:57 Dose: 20 mg PHYSICAL EXAMINATION: GENERAL: The patient is alert and oriented x2, Well developed, well nourished. Elderly-appearing male Obese HEENT: Pupils are round and equally reacting to light. EOMI. no scleral icterus. No conjunctival pallor. Normocephalic, atraumatic. No pharyngeal erythema. No thyromegaly. CARDIOVASCULAR: S1 and S2 muffled PULMONARY: diminished breath sounds bilaterally with some scattered rhonchi with crackles in noted. ABDOMEN: soft. tender on exam. obese. non-distended, normoactive bowel sounds. No palpable organomegaly. Ostomy noted MUSCULOSKELETAL: No joint swelling or deformity. EXTREMITIES: No cyanosis, clubbing, or pedal edema. Mild generalized edema of lower extremities NEUROLOGICAL: Gross neurological examination did not reveal any focal deficits. Diffuse weakness SKIN: No rashes. Assessment: Sigmoid colon mass, status post low anterior resection with anastomotic leak with revision with end colostomy, secondary to ischemic colon Fluid volume overload Acute hypoxic respiratory failure History of septic shock History of diabetes mellitus Hypertension History of COPD, not an exacerbation GI prophylaxis DVT prophylaxis Full code Plan: Recommend to continue with current medications and management with multiple medical consultations following. Nephrology following recommend continuing low-dose torsemide with outpatient follow-up and close monitoring of labs Discussed with urology as well as surgery and okay to try avoid and remove Bo and is patient does retain will replace indwelling Bo catheter and have patie nt follow-up in the outpatient setting with urology Current oral intake and close monitoring of fluids, recommend fluid restrictions Patient with prolonged hospitalization would recommend PT/OT therapy daily and planning on ECF with social work following. No bed availability at [facility] at this time and unable to accept the patient due to cost of antibiotics Patient received a PICC line and arranging for IV antibiotics outpatient. Social work following and has placed other referrals and currently pending at this time Continue with local wound care and will follow-up with repeat labs in a.m. Due to multiple complex medical issues, prognosis is guarded Possible discharge in 24-48 hours The impression and plan of care has been dictated by Erinn Story, nurse practitioner as directed. Dr. Cresencio MD I have performed a history and examination and MDM of this patient, discussed the same with the dictator, and agree with the dictator's assessment and plan as written ,documented as a scribe. Based on total visit time, I have performed more than 50% of the visit. Any additional findings or plans will be noted. Objective - Vital Signs Vital signs: Vital Signs Temp 98.4 F 04/30/22 07:47 Pulse 80 04/30/22 09:06 Resp 16 04/30/22 07:47 BP 124/70 04/30/22 07:47 Pulse Ox 94 L 04/30/22 09:06 FiO2 2 04/25/22 11:45 Intake & Output 04/29/22 04/30/22 04/30/22 18:59 06:59 18:59 Output Total 1150 525 Balance -1150 -525 Output: Urine 1150 525 Other: Voiding Method Indwelling Catheter Indwelling Catheter # Bowel Movements 50 ABP, PAP, CO, CI - Last Documented Arterial Blood Pressure 126/50 - Labs CBC & Chem 7: 04/30/22 07:17 04/30/22 07:17 Labs: Abnormal Lab Results - Last 24 Hours (Table) 04/29/22 04/29/22 04/30/22 Range/Units 05:39 23:11 05:42 WBC 10.69 H (4.50-10.00) X 10*3/uL RBC 3.18 L (4.40-5.60) X 10*6/uL Hgb 8.0 L (13.0-17.0) g/dL Hct 27.3 L (39.6-50.0) % MCH 25.2 L (27.0-32.0) pg MCHC 29.3 L (32.0-37.0) g/dL RDW 21.2 H (11.5-14.5) % Plt Count 510 H (140-440) X 10*3/uL Immature Gran # 0.09 H (0.00-0.04) X 10*3/uL Neutrophils # 8.38 H (1.80-7.70) X 10*3/uL Monocytes # 1.08 H (0.20-1.00) X 10*3/uL Eosinophils # 0.02 L (0.04-0.35) X 10*3/uL Sodium (137-145) mmol/L BUN (9-20) mg/dL Glucose (74-99) mg/dL POC Glucose (mg/dL) 152 H 167 H (70-110) mg/dL Calcium (8.4-10.2) mg/dL 04/30/22 Range/Units 07:17 WBC (4.50-10.00) X 10*3/uL RBC (4.40-5.60) X 10*6/uL Hgb (13.0-17.0) g/dL Hct (39.6-50.0) % MCH (27.0-32.0) pg MCHC (32.0-37.0) g/dL RDW (11.5-14.5) % Plt Count (140-440) X 10*3/uL Immature Gran # (0.00-0.04) X 10*3/uL Neutrophils # (1.80-7.70) X 10*3/uL Monocytes # (0.20-1.00) X 10*3/uL Eosinophils # (0.04-0.35) X 10*3/uL Sodium 135 L (137-145) mmol/L BUN 26 H (9-20) mg/dL Glucose 136 H (74-99) mg/dL POC Glucose (mg/dL) (70-110) mg/dL Calcium 8.0 L (8.4-10.2) mg/dL
[2022-04-30 20:48] LABS: Glucose,Whole Blood 135 mg/dL (70-110)
[2022-04-30] MEDS: MELATONIN 3 MG TABLET PO SCH (21:06)
--- NOTE | 2022-04-30 21:17 | P.PN ---
Subjective Progress Note Date: 04/30/22 Principal diagnosis: Intra-abdominal infection Patient is a 72 year old male presented to the hospital with symptomatic anemia did have low anterior resection subsequently did have a anastomosis leak on 04/17/2022 with laparotomy and resection of ischemic portion abdominal culture were disregarded by micro-lab as possible contamination, subsequently did have a fever and more purulent drainage from abdominal incision that prompted with diarrhea infectious disease consultation On today's evaluation that is 04/30/2022, the patient remains to be afebrile, the patient is breathing comfortably on room air, the patient denies any chest pain or shortness of breath and did have occasional dry Cough, patient denies nausea vomiting and no diarrhea has been reported Objective - Vital Signs Vital signs: Vital Signs Temp 98.2 F 04/30/22 10:31 Pulse 102 H 04/30/22 10:31 Resp 19 04/30/22 10:31 BP 124/78 04/30/22 10:31 Pulse Ox 93 L 04/30/22 10:31 FiO2 2 04/25/22 11:45 Intake & Output 04/29/22 04/30/22 04/30/22 18:59 06:59 18:59 Output Total 1150 525 800 Balance -1150 -525 -800 Output: Urine 1150 525 Stool 800 Other: Voiding Method Indwelling Catheter Indwelling Catheter Indwelling Catheter # Bowel Movements 50 ABP, PAP, CO, CI - Last Documented Arterial Blood Pressure 126/50 - Exam GENERAL DESCRIPTION: An elderly male lying in bed in no distress RESPIRATORY SYSTEM: Unlabored breathing , decreased breath sounds at bases HEART: S1 S2 regular rate and rhythm , ABDOMEN: Soft , no tenderness, abdominal incision is currently dressed EXTREMITIES: No edema feet Patient did have stage II sacral pressure ulcer , no cellulitis - Labs CBC & Chem 7: 04/30/22 07:17 04/30/22 07:17 Labs: Abnormal Lab Results - Last 24 Hours (Table) 04/29/22 04/30/22 04/30/22 Range/Units 23:11 05:42 07:17 RBC (4.40-5.60) X 10*6/uL Hgb (13.0-17.0) g/dL Hct (39.6-50.0) % MCH (27.0-32.0) pg MCHC (32.0-37.0) g/dL RDW (11.5-14.5) % Immature Gran # (0.00-0.04) X 10*3/uL Eosinophils # (0.04-0.35) X 10*3/uL Sodium 135 L (137-145) mmol/L BUN 26 H (9-20) mg/dL Glucose 136 H (74-99) mg/dL POC Glucose (mg/dL) 152 H 167 H (70-110) mg/dL Calcium 8.0 L (8.4-10.2) mg/dL 04/30/ Range/Units 07:17 RBC 3.25 L (4.40-5.60) X 10*6/uL Hgb 8.1 L (13.0-17.0) g/dL Hct 27.9 L (39.6-50.0) % MCH 24.9 L (27.0-32.0) pg MCHC 29.0 L (32.0-37.0) g/dL RDW 21.8 H (11.5-14.5) % Immature Gran # 0.08 H (0.00-0.04) X 10*3/uL Eosinophils # 0.02 L (0.04-0.35) X 10*3/uL Sodium (137-145) mmol/L BUN (9-20) mg/dL Glucose (74-99) mg/dL POC Glucose (mg/dL) (70-110) mg/dL Calcium (8.4-10.2) mg/dL Assessment and Plan (1) Abdominal wall abscess Current Visit: Yes Status: Acute Code(s): L02.211 - CUTANEOUS ABSCESS OF ABDOMINAL WALL SNOMED Code(s): 32068166 Plan: 1patient with admission to the hospital with symptomatic anemia patient was 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 coli and anaerobes and enterococcus 2the patient fever seemed to have resolved and the white count has normalized to 9000 today, the patient did get a PICC line and IJ has been discontinued 3-patient to continue with meropenem 2 weeks on discharge on the basis of the culture, and a close outpatient follow-up this was discussed in detail with the DIRECTOR OF SOFTWARE DEVELOPMENT for admitting team Time with Patient: Less than 30
[2022-05-01] MEDS: HEPARIN SODIUM,PORCINE/PF 5,000 UNIT/0.5 ML SYRINGE SQ SCH ×3 (00:32→17:07)
[2022-05-01] MEDS: INSULIN ASPART (NovoLOG) 100 UNIT/ML VIAL SQ SCH ×4 (00:32→17:40)
[2022-05-01] MEDS: HYDROcodone/APAP 5-325MG 1 EACH TAB PO PRN ×2 (02:59→20:50)
[2022-05-01] MEDS: MEROPENEM 1 GM in SODIUM CHLORIDE 0.9% 100 ML IVPB SCH ×3 (03:00→20:51)
[2022-05-01 05:49] LABS: Glucose,Whole Blood 92 mg/dL (70-110)
[2022-05-01 07:25] LABS: Glucose,Whole Blood 94 mg/dL (70-110)
[2022-05-01] MEDS: MIDODRINE 5 MG TAB PO SCH ×3 (07:54→17:09)
[2022-05-01] MEDS: INSULIN DETEMIR (LEVEMIR) 100 UNIT/ML SYR SQ SCH ×2 (07:54→20:51)
[2022-05-01] MEDS ORDERED: ALBUTEROL NEBULIZED 2.5 MG/3 ML INHALATION ONE (08:34)
[2022-05-01] MEDS: IPRATROPIUM 0.5 MG/2.5 ML NEBU INHALATION SCH (09:15)
[2022-05-01] MEDS: ALBUTEROL NEBULIZED 2.5 MG/3 ML INHALATION SCH (09:15)
[2022-05-01] MEDS: METOPROLOL TARTRATE 25 MG TAB PO SCH ×2 (09:32→20:51)
[2022-05-01] MEDS: ASPIRIN 81 MG PO SCH (09:32)
[2022-05-01] MEDS: ATORVASTATIN 40 MG TAB PO SCH (09:32)
[2022-05-01] MEDS: TAMSULOSIN 0.4 MG CAP.ER.24H PO SCH (09:32)
[2022-05-01] MEDS: FLUCONAZOLE IN NACL,ISO-OSM 200 MG in SALINE 1 100ML.BAG IVPB SCH (09:33)
[2022-05-01] MEDS: TORSEMIDE 20 MG TAB PO SCH (09:35)
[2022-05-01] MEDS: SIMETHICONE 40 MG/0.6 ML DROPS 2,000 MG/30 ML BOTTLE PO SCH ×4 (09:35→20:52)
[2022-05-01] MEDS: FAMOTIDINE 20 MG/2 ML VIAL IV SCH (10:40)
[2022-05-01 10:41] LABS: HCT 27.7 % (39.6-50.0); HGB 7.9 g/dL (13.0-17.0); MCH 24.8 pg (27.0-32.0); MCHC 28.5 g/dL (32.0-37.0); MCV 86.8 fL (80.0-97.0); Mean Platelet Volume 10.7 fL (9.5-12.2); NRBC Per 100 WBC 0 /100 WBCS (0.0-0.0); Platelet Count 418 X 10*3/uL (140-440); RBC 3.19 X 10*6/uL (4.40-5.60); RDW 22.1 % (11.5-14.5); WBC 8.06 X 10*3/uL (4.50-10.00)
[2022-05-01 10:50] LABS: African American GFR (CKD) 69.6 (60.0-200.0); Anion Gap 9.8 mmol/L (10.00-18.00); BUN/Creat Ratio 19.08 Ratio (12.00-20.00); Blood Urea Nitrogen 22.9 mg/dL (9.0-27.0); Calcium 8.2 mg/dL (8.7-10.3); Carbon Dioxide 29.2 mmol/L (20.0-27.5); Non-African American GFR(CKD) 60.1 (60.0-200.0); Potassium 4.4 mmol/L (3.5-5.5)
[2022-05-01 11:33] LABS: Glucose,Whole Blood 116 mg/dL (70-110)
[2022-05-01 11:34] LABS: Basophils # (A) 0.03 X 10*3/uL (0.00-0.10); Basophils % (A) 0.4 %; Eosinophils # (A) 0.03 X 10*3/uL (0.04-0.35); Eosinophils % (A) 0.4 %; Lymphocytes # (A) 0.82 X 10*3/uL (0.90-5.00); Lymphocytes % (A) 10.2 %; Monocytes # (A) 0.88 X 10*3/uL (0.20-1.00); Monocytes % (A) 10.9 %; Neutrophils # (A) 6.22 X 10*3/uL (1.80-7.70); Neutrophils % (A) 77.1 %
[2022-05-01] MEDS ORDERED: FUROSEMIDE 10 MG/ML 4 ML VIAL IV STA (13:18)
--- NOTE | 2022-05-01 13:19 | P.PN ---
Subjective Patient is seen in follow-up for acute kidney injury. Underwent exploratory laparotomy with washout of abdomen with colostomy placement on 04/17/2022. Nonoliguric. Renal function stable. On oral diuretics. TPN discontinued. Tolerating oral intake. Denies chest pain or shortness of breath. No active complaints. Vital signs are stable. General: Resting in bed. HEENT: On nasal cannula. LUNGS: No audible rhonchi or wheezes. HEART: Rate and Rhythm are regular. ABDOMEN: Colostomy noted. EXTREMITITES: 1+ edema bilateral lower extremities. Objective - Vital Signs Vital signs: Vital Signs Temp 98 F 05/01/22 12:19 Pulse 94 05/01/22 12:19 Resp 20 05/01/22 12:19 BP 127/76 05/01/22 12:19 Pulse Ox 93 L 05/01/22 12:19 FiO2 2 04/25/22 11:45 Intake & Output 04/30/22 05/01/22 05/01/22 18:59 06:59 18:59 Intake Total 240 200 Output Total 1900 1800 300 Balance -1660 -1600 -300 Weight 103.1 kg Intake: Intake, IV Titration 200 Amount Meropenem 1 gm In Sodium 200 Chloride 0.9% 100 ml @ 33 .3 mls/hr IVPB Q8H [facility] Rx #:[id number] Oral 240 Output: Urine 1100 1200 Stool 800 600 300 Other: Voiding Method Indwelling Catheter Indwelling Catheter Indwelling Catheter ABP, PAP, CO, CI - Last Documented Arterial Blood Pressure 126/50 - Labs CBC & Chem 7: 05/01/22 06:50 05/01/22 06:50 Labs: Abnormal Lab Results - Last 24 Hours (Table) 04/30/22 05/01/22 05/01/22 Range/Units 20:45 06:50 06:50 RBC 3.19 L (4.40-5.60) X 10*6/uL Hgb 7.9 L (13.0-17.0) g/dL Hct 27.7 L (39.6-50.0) % MCH 24.8 L (27.0-32.0) pg MCHC 28.5 L (32.0-37.0) g/dL RDW 22.1 H (11.5-14.5) % Immature Gran # 0.08 H (0.00-0.04) X 10*3/uL Lymphocytes # 0.82 L (0.90-5.00) X 10*3/uL Eosinophils # 0.03 L (0.04-0.35) X 10*3/uL Carbon Dioxide 29.2 H (20.0-27.5) mmol/L Anion Gap 9.80 L (10.00-18.00) mmol/L POC Glucose (mg/dL) 135 H (70-110) mg/dL Calcium 8.2 L (8.7-10.3) mg/dL Crossmatch 05/01/22 05/01/22 Range/Units 11:31 11:48 RBC (4.40-5.60) X 10*6/uL Hgb (13.0-17.0) g/dL Hct (39.6-50.0) % MCH (27.0-32.0) pg MCHC (32.0-37.0) g/dL RDW (11.5-14.5) % Immature Gran # (0.00-0.04) X 10*3/uL Lymphocytes # (0.90-5.00) X 10*3/uL Eosinophils # (0.04-0.35) X 10*3/uL Carbon Dioxide (20.0-27.5) mmol/L Anion Gap (10.00-18.00) mmol/L POC Glucose (mg/dL) 116 H (70-110) mg/dL Calcium (8.7-10.3) mg/dL Crossmatch See Detail Assessment and Plan Plan: Assessment: 1. Acute kidney injury secondary to ATN and urinary retention. Creatinine peaked at 2.86 this admission is fairly stable at 1.2 today. No hydronephrosis noted on kidney ultrasound. UA fairly benign. 2. GI bleed status post blood transfusion this admission. Hemoglobin 7.3 04/25/22. 3. 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 Status post exploratory laparotomy with washout of abdomen and colostomy 04/17/2022. 4. Volume overload. Improved with diuresis. 5. Metabolic acidosis secondary to acute kidney injury and IV fluids. Also GI losses. s/p bicarb drip. Resolved. 6. Diabetes mellitus. 7. Coronary disease status post CABG and cardiac stenting. 8. Urinary retention. Has Bo catheter. On Flomax. Urology following. 9. Hypokalemia from diuresis and hypomagnesemia. Replaced. Improved. 10. Hypomagnesemia from diuresis and GI losses. Replaced. Improved. Plan: Maintain torsemide. 40 mg IV Lasix once today. No evidence of DVT. Continue to monitor renal function and urine output. Avoid nephrotoxins. Maintain midodrine. Hold for systolic blood pressure greater than 110. Repeat BMP and magnesium of 2-3 days postdischarge. Follow up outpatient in 1-2 weeks.
--- NOTE | 2022-05-01 13:40 | P.PN ---
Subjective Progress Note Date: 05/01/22 This is a 72-year-old male patient was brought into the intensive care unit after having his second surgery on 04/17/2022 which involved expiratory laparotomy, the patient had the surgery for an underlying anastomotic leak. The patient underwent a abdominal washout and takedown of anastomosis and colectomy and colostomy in the left upper quadrant. Estimated blood loss was around 25 mL. Postop, the patient was kept intubated on a mechanical ventilator. He was brought into the intensive care unit. He was quite hypotensive. His CVP was low on the eighth. He will received a total of saline boluses and following that he was started on pressors. Currently norepinephrine is running at 0.24 mcg/kg/m. The patient is intubated on a mechanical ventilator. Is currently on propofol at 45 mcg/kg/m and the patient is currently on assist control mode at a rate of 20, tidal volume of 450, FiO2 40% and a PEEP of 5. Note that overnight, the patient was found to be acidotic. He was given IV bicarb and following that he was started on a bicarbonate infusion which is still running at the rate of 150 mL an hour. Serum bicarb today is up to 20. Blood gas from today showed a pH of 7.38 with episodes of 34 and a pO2 of 120 and this was on FiO2 of 50%. WBC count is at 7.5 with a hemoglobin of 8.4 and a platelet count of 243. He did not fluid balance is positive for liters at least over the past 12 hours. The patient remains on IV Zosyn. He is adequately sedated. His colostomy site is light pink without evidence of any necrosis. The patient has no output in the colostomy bag. Surgical 1 site was inspected. The patient has retention sutures. There is leak of serosanguineous/bloody effusion from the one surface. The patient has a large midabdominal incision extending above and below the umbilicus all the way down to his pelvis. He does have scrotal edema. He does have +1 pitting edema. Orogastric tube is also in place. Ultrasound OG is only 200 over the past 8 hours. Note that this patient has history of coronary artery disease with previous bypass surgery and had a recent stent placement in February 2022. He came into the emergency department for shortness of breath. He was found to be intimate with a hemoglobin of 6.9. Given a unit of packed RBC. His fecal occult blood was positive. He underwent EGD and colonoscopy. EGD showed moderately sized hiatal hernia and colonoscopy showed a circumferential sigmoid mass 28 cm from the anal verge and 5 mm rectal polyp. Based on that, the patient was taken to the operating room on 04/13/2022 and the patient underwent a low anterior resection on 04/13/2022. His course was complicated by development of abdominal distention and worsening shortness of breath. This occurred on postoperative day #4. A CAT scan of the abdomen was done yesterday that showed evidence of a moderate to large amount of free intraperitoneal air consistent with anastomotic leak. There was also moderate bilateral pleural effusions. There was small amount of ascites around the liver. There was large hiatal hernia and by the edema. Chest x-ray from today is showing cardiomegaly, bilateral pleural effusion, is about the pulmonary infiltrates, thoracotomy wires, triple-lumen catheter in his left IJ and adequate positioning of the orogastric tube. There is evidence also of bilateral pleural effusions. On 04/19/2022, the patient remains intubated on a mechanical ventilator. The patient is postop day #2. THE patient had an anastomotic leak following bowel surgery in a patient presented to the intensive care following his surgery intubated on a mechanical ventilator. This morning, the patient is on propofol running at 45 mcg/kg/m. His calm and comfortable and symptoms mechanical ventilator. At the same time, is on assist control mode at a rate of 20, tidal volume of 450, FiO2 of 40% with a PEEP of 5. The blood gas from this morning shows a pH of 7.42 pCO2 of 42 and pO2 of 92. The chest x-ray from today is mychal wing bilateral pleural effusion/consolidation is worse on the right. 82 is around 1.5 cm away from judah. Triple-lumen catheter was also placed in his left IJ. Hemodynamically, the patient is on IV fluids and currently is on bicarb infusion running at the rate of 75 mL an hour. His bicarb can be discontinued as the patient's serum bicarb is up to 25. Sodium is at 137 with a potassium level of 3.[address] Urine output is in order of 150 mL an hour. His overall fluid balance over the past 24 hours has been +3.5 L. In terms of hemodynamic support, the patient is on norepinephrine running at 0.1 mcg/kg/m. He also has vasopressin at physiologic dose at 0.03 units an hour. Cardiac rhythm is sinus. The patient was started on TPN for nutritional support which is running at the rate of 30 mL an hour. He is showing some signs of fluid overload with increase in scrotal edema. The colostomy stoma is viable. The tissue looks healthy. There is some liquidy material collecting in the bag. The abdomen is distended. Surgical wound is open and there is some limited serosanguineous material from the surgical one-sided. Orogastric tube in place. Output from the OG has been in the order of 10-20 mL over the past 24 hours. Patient is calm and comfortable. He is running episodes of fever. His T-max was 102. Blood culture is negative. Intra-abdominal cultures are still pending for now. The 2022, the patient's postop day #3 following his surgery for anastomotic leak, colectomy and diverticular colostomy. On today's evaluation, the patient remains on a mechanical ventilator. He is currently on propofol which is running at 45 mcg/kg/m and his well rested. He remains on a mechanical ventilator. He is on assist control mode at the rate of 20, tidal volume of 450, FiO2 of 40% and PEEP of 5. The chest x-ray from today shows cardiomegaly, ET tube is in a good location, the patient has a triple-lumen cath in the right IJ. There is also evidence of bilateral pleural effusion which is essentially unchanged compared to yesterday and the findings of essentially stable for now. The blood gas shows a pH of 7.48 with a pCO2 of 39 and pO2 of 79. The patient is quite segments on mechanical ventilator. Hemodynamically, the patient is on KVO IV fluids. He did have significant fluid resuscitation. And IV fluids were cut down yesterday. He remains on pressors and norepinephrine is running at the rate of 0.03 mcg/kg/m. As such, his blood pressure has stabilized and he was also taken off the vasopressin. Cardiac rhythm is still sinus. Urine output is adequate for now. The patient was also started on TPN for nutritional support. On today's evaluation, the surgical wound is draining purulent foul-smelling material. The colostomy is viable and there is stool output in the colostomy bag. In terms of cultures, the wound needs to be cultured. The blood culture is negative. The abdominal wound cultures collected intraoperatively are still pending for now. The patient remains on IV Zosyn for now. Blood work shows a dull retrosternal 9 with a hemoglobin of 7.5 and a platelet count of 204. The sodium is at 135, potassium is to be replaced at 2.9 and the patient has a BUN of 22 with a creatinine of 1.36 and his acute kidney injury is also improving. Blood sugars at 202. Patient is on Levemir insulin 25 units twice a day and is also on sliding scale insulin coverage. Blood sugars under adequate control for now. Reevaluated today on 04/21/2022, patient is now postoperative day #4. Patient is status post surgery for an anastomotic leak, colectomy and diverticular colostomy. Remains in the ICU intubated and mechanically ventilated. He is on assist control rate of 20 tidal volume 450 FiO2 40% and PEEP of 5 ABG showed a pO2 of 97 pCO2 of 40 pH of 7.51 as no changes were made in the vent settings. Patient is still requiring norepinephrine at 0.02 mcg/kg/m propofol at 45 mcg/kg/m is also on TPN at 59 mL/h. Patient has good urine output, his ostomy seems to be functional. Chest x-ray continues to show small bilateral pleural effusions, endotracheal tube and catheters are in the proper position. WBC count is 12.2 hemoglobin is 7.7, basic metabolic profile is normal renal profile showed a BUN of 19 and creatinine of 1.34, steadily improving over the last 10 days. Patient is now sedated, and I plan to hold sedation on this patient today, address weaning parameters, and possibly give the patient weaning trial. Reevaluated today on 04/22/2022, patient remains in the ICU, he was extubated yesterday to BiPAP, and he remained overnight. Patient is on 12/6 and 40% FiO2 however after evaluating the patient today I switch him to nasal cannula. Patient is not in any distress. He is arousable, follows very simple instructions. And he is not in any distress his ostomy seems to be functioning he is still receiving TPN at 64 mL per hour and his IV fluid is at KVO. Continues to have good urine output WBC count is 12.4 hemoglobin 7.8 electrolytes are normal renal profile is showing improvement creatinine is down to 1.33. Chest x-ray continues to show small bilateral pleural effusions and mild pulmonary vascular congestion and cardiomegaly Reevaluated today on , remains in the ICU, patient tolerated extubation well for the last 2 days. Off BiPAP, on nasal cannula, O2 saturation is in the mid 90s on 2 L nasal cannula. Patient had low-grade temp last night, 99.6. He is hemodynamically stable, not in any distress, at times noted to be a bit lethargic and confused by the nurse, but on physical examination today, the patient seems to be quite appropriate. WBC count is 13.5 hemoglobin 7.6 basic metabolic profile is normal renal profile showed a creatinine of 1.23, steadily improving. Different cultures from the wound and from the abdomen were noted. Blood cultures have been negative. No chest x-ray was done today, but chest x- ray from yesterday showed small bilateral pleural effusions and mild pulmonary vascular congestion. Patient did receive Lasix yesterday. Reevaluated today on 04/24/2022, patient remains in the ICU, doing fairly well, no major issues overnight. Patient still doing a bit poorly with incentive spirometry, he has been up in the chair, continues to have scrotal edema and that's quite significant continues to have bipedal edema now he is on a maintenance dose of Lasix 20 mg twice a day. His antibiotics have been changed per infectious disease now he is on Merrem and daptomycin as well as Diflucan. Today I am cutting down the TPN to have dose since the patient is already tolerating oral intake. Tomorrow will likely discontinue TPN and go to full diet. Hemoglobin is a bit low today at 6.9, may consider transfusing the patient if the hemoglobin continues to drift down. Baseline has been in the 7.5 range for the last 5 days basic metabolic profile is normal renal profile is normal except for creatinine of 1.26, slightly worse today compared to yesterday and it was 1.23 yesterday. Patient is being followed by nephrology.. No chest x-ray has been done. The patient is seen today 04/25/2022 in follow-up on the regular medical floor. He was transferred out of the intensive care unit yesterday. He was doing quite well. Maintaining good O2 saturations in the 90s on 2 L/m per nasal cannula. Chest x-ray reveals bilateral infiltrate and pleural effusion stable. Slight improvement. He's been afebrile. Hemodynamically stable. He did receive 1 unit of packed red blood cells yesterday. Current hemoglobin 7.3. Blood cultures positive for gram-negative bacilli in the abdominal wound. White count 14.9. Hemoglobin 7.3. Platelets 458. Sodium 134. Potassium 4.6. Bicarb 29. BUN 31. Creatinine 1.27. Glucose 98. He remains on IV diuretics. Currently in a positive balance. Remains on antibiotics in the form of meropenem and daptomycin. Continued on Diflucan. Being nourished with TPN. Tolerating a full liquid diet. He did have some issues with confusion through the night and had pulled off his colostomy bag, pulled off his dressing and packing to his open abdominal wound. Pulled out his IV. The patient is seen today 04/26/2022 in follow-up on the regular medical floor. He is currently sitting up in bed. More awake and alert. Cooperative. medicare compliance auditor at the bedside. Denies any worsening shortness of breath, cough or congestion. He is maintaining good O2 saturations in the 90s on 2 L/m per nasal cannula. BUN nourished with TPN at 36 ML's per hour. He is tolerating a full liquid diet. Abdominal wound cultures are positive for Enterobacter cloacae, Enterococcus faecalis and E. coli. Sodium 135. Potassium 4.5. Bicarb 28. BUN 32. Creatinine 1.22. Glucose 68. He is continued on fluconazole, daptomycin and meropenem. Remains on IV diuretics. Currently in a -2.2 L balance The patient is seen today 04/27/2022 in follow-up on the regular medical floor. He is awake and alert in no acute distress. Oriented 2. medicare compliance auditor at the bedside. No worsening shortness of breath, cough or congestion. Maintaining O2 saturations in the 90s on room air. Recurrent fever 100.8. Remains on meropenem, Diflucan. Heparin for DVT prophylaxis. Nutritional support with TPN at 30 MLS per hour. Tolerating a clear liquid diet being advanced to full liquid per surgical services. White count 14.7. Hemoglobin 6.8. Platelets 513. Sodium 137. Potassium 4.5. Bicarb 30. BUN 31. Creatinine 1.25. Glucose 168. The patient is seen today 04/29/2022 in follow-up on the regular medical floor. He is currently sitting up in a chair at the bedside.. Awake and alert. No worsening shortness of breath, cough or congestion. Currently maintaining O2 saturations in the 90s on room air. He is tolerating a regular diet. TPN still at 30 MLS per hour. He had a PICC line placed today for long-term antibiotic therapy. Abdominal wound cultures were positive for Enterobacter cloacae, E. coli, Enterococcus faecalis. He was having some issues with left lower extremity edema and Doppler ruled out DVT. White count 10.6. Hemoglobin 8.0. Sodium 137. Potassium 4.5. Bicarb 31. BUN 28. Creatinine 1.20. Initial glucose 47. Currently 94. He remains on meropenem, Diflucan. Heparin for DVT prophylaxis. Continued on bronchodilators. The patient is seen today 04/30/2022 in follow-up on the regular medical floor. He remains awake and alert in no acute distress. Sitting up in a chair at the bedside. Maintaining O2 saturations in the 90s on room air. Chest x-ray reveals stable bilateral infiltrates/pleural effusions with mild CHF. Remains on oral diuretics. No IV fluids. He has a PICC line placed. Antibiotics per ID services. Remains on bronchodilators. Currently on meropenem, Diflucan. White count 9.0. Hemoglobin 8.1. Platelets 426. Sodium 135. Potassium 4.7. Bicarb 28. BUN 26. Creatinine 1.10. Glucose 136. The patient is seen today 05/01/2022 in follow-up on the regular medical floor. He sitting up in a chair at the bedside. Awake and alert in no acute distress. Denies any worsening shortness of breath, cough or congestion. He is maintaining good O2 saturations in the 90s on room air. He was given Lasix 40 mg IVP 1 today. He's currently in a -3.2 L balance. Previous abdominal wound cultures were positive for Enterobacter Cloacae, E. coli and Enterococcus faecalis. He is continued on meropenem, Diflucan. Remains on heparin for DVT prophylaxis. White count 8.0. Hemoglobin 7.9. Platelets 418. Sodium 139. Potassium 4.4. BUN 23. Creatinine 1.2. Objective - Vital Signs Vital signs: Vital Signs Temp 98.3 F 05/01/22 13:20 Pulse 97 05/01/22 13:20 Resp 20 05/01/22 13:20 BP 128/72 05/01/22 13:20 Pulse Ox 99 05/01/22 13:20 FiO2 2 04/25/22 11:45 Intake & Output 04/30/22 05/01/22 05/01/22 18:59 06:59 18:59 Intake Total 240 200 0 Output Total 1900 1800 300 Balance -1660 -1600 -300 Weight 103.1 kg Intake: Intake, IV Titration 200 Amount Meropenem 1 gm In Sodium 200 Chloride 0.9% 100 ml @ 33 .3 mls/hr IVPB Q8H [facility] Rx #:[id number] Oral 240 Blood Product 0 Rc As-1 Unit 0 [id number] Output: Urine 1100 1200 Stool 800 600 300 Other: Voiding Method Indwelling Catheter Indwelling Catheter Indwelling Catheter ABP, PAP, CO, CI - Last Documented Arterial Blood Pressure 126/50 - Exam GENERAL EXAM: Alert, oriented 2, pleasant 72-year-old male patient, up in a chair, on room air, comfortable in no apparent distress. HEAD: Normocephalic. EYES: Normal reaction of pupils, equal size. NOSE: Clear with pink turbinates. THROAT: No erythema or exudates. NECK: No masses, no JVD. Left IJ catheter remains in place CHEST: No chest wall deformity. LUNGS: Equal air entry with few crackles in the posterior bases. CVS: S1 and S2 normal with no audible murmur, regular rhythm. ABDOMEN: Colostomy in the left upper quadrant. The colon tissue is pink and viable. His stool output in the colostomy bag. SPINE: No scoliosis or deformity SKIN: No rashes CENTRAL NERVOUS SYSTEM: No focal deficits, tone is normal in all 4 extremities. EXTREMITIES: PICC line to the upper extremities. There is 1-2+ peripheral edema. No clubbing, no cyanosis. Peripheral pulses are intact. - Labs CBC & Chem 7: 05/01/22 06:50 05/01/22 06:50 Labs: Abnormal Lab Results - Last 24 Hours (Table) 04/30/22 05/01/22 05/01/22 Range/Units 20:45 06:50 06:50 RBC 3.19 L (4.40-5.60) X 10*6/uL Hgb 7.9 L (13.0-17.0) g/dL Hct 27.7 L (39.6-50.0) % MCH 24.8 L (27.0-32.0) pg MCHC 28.5 L (32.0-37.0) g/dL RDW 22.1 H (11.5-14.5) % Immature Gran # 0.08 H (0.00-0.04) X 10*3/uL Lymphocytes # 0.82 L (0.90-5.00) X 10*3/uL Eosinophils # 0.03 L (0.04-0.35) X 10*3/uL Carbon Dioxide 29.2 H (20.0-27.5) mmol/L Anion Gap 9.80 L (10.00-18.00) mmol/L POC Glucose (mg/dL) 135 H (70-110) mg/dL Calcium 8.2 L (8.7-10.3) mg/dL Crossmatch 05/01/22 05/01/22 Range/Units 11:31 11:48 RBC (4.40-5.60) X 10*6/uL Hgb (13.0-17.0) g/dL Hct (39.6-50.0) % MCH (27.0-32.0) pg MCHC (32.0-37.0) g/dL RDW (11.5-14.5) % Immature Gran # (0.00-0.04) X 10*3/uL Lymphocytes # (0.90-5.00) X 10*3/uL Eosinophils # (0.04-0.35) X 10*3/uL Carbon Dioxide (20.0-27.5) mmol/L Anion Gap (10.00-18.00) mmol/L POC Glucose (mg/dL) 116 H (70-110) mg/dL Calcium (8.7-10.3) mg/dL Crossmatch See Detail Assessment and Plan Assessment: Acute hypoxic respiratory failure secondary to abdominal sepsis and septic shock, patient was extubated uneventfully on 04/21/2022. Currently stable on room air Acute surgical abdomen secondary to anastomotic leak following a sigmoid resect ion and low AP resection from initial surgery performed on 04/13/2022, status post left colectomy and diverting colostomy Septic shock secondary to above secondary to abdominal sepsis, remains on antib iotics. Surgical wound infection Sigmoid colon mass, post low AP resection performed on 04/13/2022 Underlying coronary artery disease and previous CABG Chronic kidney disease stage III GI bleeding secondary to sigmoid colon tumor Anemia, status post 2 unit packed red blood cells this admission. Current hemoglobin 7.9. Diabetes mellitus, Type 2 Dyslipidemia Anasarca and scrotal edema secondary to hypoproteinemia patient is presently on TPN. Valvular heart disease with moderate degree of mitral regurgitation and severe tricuspid regurgitation with pulmonary hypertension Underlying COPD Benign prostatic hypertrophy Plan: The patient was seen and evaluated Medications and labs reviewed Tolerating a regular diet Antibiotics per ID service Continued on diuretics Stable and on room air Encourage increased use of the incentive spirometer Cleared for discharge to the ECF from the pulmonary standpoint I have personally seen and examined the patient, performed the documentation and the assessment and plan as written. Number of minutes spent on the visit: 10.
--- NOTE | 2022-05-01 13:52 | P.PN ---
Subjective Progress Note Date: 05/01/22 CHIEF COMPLAINT: Colon mass HISTORY OF PRESENT ILLNESS: Patient had lower anterior resection for sigmoid colon mass on 04/13/2022. He developed anastomotic leak and is status post exploratory laparotomy, washout of abdomen takedown of anastomosis and colostomy in the left upper quadrant for anastomotic leak secondary to ischemic colon on 04/17/22. Patient's ostomy is functioning. His oral intake has improved. Patient on fluid overload. He did receive a dose of IV Lasix. Patient is not being discharged today. Afebrile. WBC is 8.6 Hgb 7.9 platelets 418 signs 139 potassium 4.4 creatinine 1. Patient seen and examined with Dr. Carrera PHYSICAL EXAM: VITAL SIGNS: Reviewed. GENERAL: Well-developed in no acute distress. HEENT: No sclera icterus. Extraocular movements grossly intact. Moist buccal mucosa. Head is atraumatic, normocephalic. ABDOMEN: Soft. Wound VAC in place Colostomy with stool present. NEUROLOGIC: confused ASSESSMENT: 1. Colon cancer status post lower anterior resection 2. Anastomotic leak secondary to ischemic colon status post exploratory laparotomy, abdominal washout and colostomy placement 3. Anemia 4. History of coronary disease with stents placed in February 2022 with prior CABG 5. Intra-abdominal sepsis 6. Peritonitis PLAN: -Patient can be discharged from surgical standpoint when medically cleared -Bo catheter to be discontinued by medicine service -Discharge antibiotics per infectious disease -Continue regular diet Physician Register In [place] note has been reviewed by physician. Signing provider agrees with the documented findings, assessment, and plan of care. Objective - Vital Signs Vital signs: Vital Signs Temp 98.3 F 05/01/22 13:33 Pulse 90 05/01/22 13:33 Resp 20 05/01/22 13:33 BP 136/80 05/01/22 13:33 Pulse Ox 98 05/01/22 13:33 FiO2 2 04/25/22 11:45 Intake & Output 04/30/22 05/01/22 05/01/22 18:59 06:59 18:59 Intake Total 240 200 0 Output Total 1900 1800 300 Balance -1660 -1600 -300 Weight 103.1 kg Intake: Intake, IV Titration 200 Amount Meropenem 1 gm In Sodium 200 Chloride 0.9% 100 ml @ 33 .3 mls/hr IVPB Q8H [facility] Rx #:[id number] Oral 240 Blood Product 0 Rc As-1 Unit 0 [id number] Output: Urine 1100 1200 Stool 800 600 300 Other: Voiding Method Indwelling Catheter Indwelling Catheter Indwelling Catheter ABP, PAP, CO, CI - Last Documented Arterial Blood Pressure 126/50 - Labs CBC & Chem 7: 05/01/22 06:50 05/01/22 06:50 Labs: Abnormal Lab Results - Last 24 Hours (Table) 04/30/22 05/01/22 05/01/22 Range/Units 20:45 06:50 06:50 RBC 3.19 L (4.40-5.60) X 10*6/uL Hgb 7.9 L (13.0-17.0) g/dL Hct 27.7 L (39.6-50.0) % MCH 24.8 L (27.0-32.0) pg MCHC 28.5 L (32.0-37.0) g/dL RDW 22.1 H (11.5-14.5) % Immature Gran # 0.08 H (0.00-0.04) X 10*3/uL Lymphocytes # 0.82 L (0.90-5.00) X 10*3/uL Eosinophils # 0.03 L (0.04-0.35) X 10*3/uL Carbon Dioxide 29.2 H (20.0-27.5) mmol/L Anion Gap 9.80 L (10.00-18.00) mmol/L POC Glucose (mg/dL) 135 H (70-110) mg/dL Calcium 8.2 L (8.7-10.3) mg/dL Crossmatch 05/01/22 05/01/22 Range/Units 11:31 11:48 RBC (4.40-5.60) X 10*6/uL Hgb (13.0-17.0) g/dL Hct (39.6-50.0) % MCH (27.0-32.0) pg MCHC (32.0-37.0) g/dL RDW (11.5-14.5) % Immature Gran # (0.00-0.04) X 10*3/uL Lymphocytes # (0.90-5.00) X 10*3/uL Eosinophils # (0.04-0.35) X 10*3/uL Carbon Dioxide (20.0-27.5) mmol/L Anion Gap (10.00-18.00) mmol/L POC Glucose (mg/dL) 116 H (70-110) mg/dL Calcium (8.7-10.3) mg/dL Crossmatch See Detail
[2022-05-01 17:22] LABS: Glucose,Whole Blood 141 mg/dL (70-110)
--- NOTE | 2022-05-01 19:32 | P.PN ---
Subjective Progress Note Date: 05/01/22 This is a 72-year-old male who was recently admitted with sigmoid colon mass underwent low anterior resection and has had multiple complex medical issues ongoing. Patient did require emergent surgery for leak requiring further bowel surgery ending in ostomy with multiple medical consultations following. Patient with poor oral intake has been maintained on TPN although diet has been advanced and working on weaning off TPN. Patient received a PICC line for IV antibiotic therapy outpatient with infectious disease following closely. Patient with abdominal wound with wound VAC being ordered which surgery continuing to follow. Patient continues on volume overload with nephrology following as well and has received Lasix and being transitioned to torsemide. Recommend PT/OT therapy daily with social work following work and discharge planning to [facility] once patient is medically stable and cleared by consultations. Patient is currently afebrile with no reports of chest pain or shortness of breath noted. 04/30/2022 Patient is seen in follow-up as morning currently sitting up in the chair continues with significant weakness working on ECF planning. Social work follow ing and it appears [facility] cannot accommodate the patient with no bed availability. Patient family would like him to be close to her in the [facility] and social work has made other referrals which are currently pending. Patient has received a PICC line and will continue on IV antibiotic therapy in addition to oral antibiotics for the next 2 weeks. Patient continued with indwelling Bo catheter and for surgery okay to remove and trial void. Patient is continued on torsemide low-dose with nephrology following closely recommend monitoring closely in the outpatient setting with follow-up in 1-2 weeks and repeat labs. Patient is currently afebrile with no reports of shortness of breath or chest pain. Patient is tolerating diet although not eating very much. Ostomy is functioning and continuing with local wound care. 05/01/2022 Patient is seen and evaluated in follow-up today with multiple medical consultations following. Patient does have a PICC line and will be continuing on IV antibiotic therapy for an additional 2 weeks with infectious disease sherlyo closely. General surgery following recommending outpatient follow-up in ostomy is functioning and patient along with family members are receiving education and guidance on ostomy care. Encouraged oral intake and intake continues to be fair. Patient was somewhat volume overload and is being m aintained on torsemide. Patient will receive a dose later this afternoon. Patient did have Bo catheter placed for retention and will continue for now until patient is more mobile. Recommend follow-up labs in the a.m. and a chest x-ray as well. Recommend physical therapy daily and working on possibly C[facility] bed. Review of systems: Constitutional: No reports of fatigue, fever, or chills Cardiovascular: No reports of chest pain or palpitations Respiratory: No reports of shortness of breath or cough GI: no reports of nausea, no reports of vomiting, no diarrhea, poor oral intake : No reports of dysuria or retention, has indwelling Bo catheter Neurovascular: reports of generalized weakness All medications have been reviewed Active Medications Acetaminophen (Acetaminophen Tab 500 Mg Tab) 1,000 mg PO Q6HR PRN PRN Reason: Fever and/ or Pain Last Admin: 04/27/22 12:18 Dose: 1,000 mg Hydrocodone Bitart/Acetaminophen (Hydrocodone/Apap 5-325mg 1 Each Tab) 1 each PO Q4HR PRN PRN Reason: Moderate Pain (Scale 4 to 6) Last Admin: 05/01/22 02:59 Dose: 1 each Aspirin (Aspirin 81 Mg) 81 mg PO DAILY [facility] Last Admin: 05/01/22 09:32 Dose: 81 mg Atorvastatin Calcium (Atorvastatin 40 Mg Tab) 40 mg PO DAILY [facility] Last Admin: 05/01/22 09:32 Dose: 40 mg Benzocaine/Menthol (Benzocaine/Menthol Lozeng 1 Each Lozenge) 1 each MUCOUS MEM Q1HR PRN PRN Reason: Sore Throat Last Admin: 04/23/22 09:33 Dose: 1 each Dextrose/Water (Dextrose 50% Syringe 50 Ml) 25 ml IVP PER PROTOCOL PRN; Protocol PRN Reason: Hypoglycemia Dextrose/Water (Dextrose 50% Syringe 50 Ml) 50 ml IVP PER PROTOCOL PRN; Protocol PRN Reason: Hypoglycemia Famotidine (Famotidine 20 Mg/2 Ml Vial) 20 mg IV DAILY [facility] Last Admin: 05/01/22 10:40 Dose: 20 mg Heparin Sodium (Porcine) (Heparin Sodium,Porcine/Pf 5,000 Unit/0.5 Ml Syringe) 5,000 unit SQ Q8HR [facility] Last Admin: 05/01/22 17:07 Dose: 5,000 unit Hydromorphone HCl (Hydromorphone 1 Mg/Ml 1 Ml Syringe) 1 mg IVP Q4HR PRN PRN Reason: Severe Pain (Scale 7 to 10) Last Admin: 04/29/22 15:48 Dose: 1 mg Fluconazole/Sodium Chloride (200 mg/ IV Solution) 100 mls @ 100 mls/hr IVPB DAILY [facility]; Protocol Last Admin: 05/01/22 09:33 Dose: 100 mls/hr Meropenem 1 gm/ Sodium (Chloride) 100 mls @ 33.3 mls/hr IVPB Q8H [facility]; Protocol Last Admin: 05/01/22 11:47 Dose: 33.3 mls/hr Insulin Aspart (Insulin Aspart (Novolog) 100 Unit/Ml Vial) 0 unit SQ Q6H [facility]; Protocol Last Admin: 05/01/22 17:40 Dose: Not Given Insulin Detemir (Insulin Detemir (Levemir) 100 Unit/Ml Syr) 30 unit SQ BID@0700,2100 [facility] Last Admin: 05/01/22 07:54 Dose: Not Given Melatonin (Melatonin 3 Mg Tablet) 3 mg PO HS [facility] Last Admin: 04/30/22 21:06 Dose: 3 mg Metoprolol Tartrate (Metoprolol Tartrate 25 Mg Tab) 25 mg PO BID [facility] Last Admin: 05/01/22 09:32 Dose: 25 mg Midodrine (Midodrine 5 Mg Tab) 5 mg PO AC-TID [facility] Last Admin: 05/01/22 17:09 Dose: Not Given Miscellaneous Information (Potassium Replacement Protocol 1 Each Misc) 1 each MISCELLANE DAILY PRN; Protocol PRN Reason: Per Protocol Miscellaneous Information (Magnesium Replacement Protocol 1 Each Misc) 1 each MISCELLANE DAILY PRN; Protocol PRN Reason: Per Protocol Naloxone HCl (Naloxone 0.4 Mg/Ml 1 Ml Vial) 0.2 mg IV Q2M PRN PRN Reason: Opioid Reversal Nitroglycerin (Nitroglycerin Sl Tabs 0.4 Mg Tab) 0.4 mg SUBLINGUAL Q5M PRN PRN Reason: Chest Pain Ondansetron HCl (Ondansetron 4 Mg/2 Ml Vial) 4 mg IVP Q8HR PRN PRN Reason: Nausea And Vomiting Last Admin: 04/24/22 08:50 Dose: 4 mg Simethicone (Simethicone 40 Mg/0.6 Ml Drops 2,000 Mg/30 Ml Bottle) 40 mg PO QID [facility] Last Admin: 05/01/22 17:07 Dose: 40 mg Tamsulosin HCl (Tamsulosin 0.4 Mg Cap.Er.24h) 0.4 mg PO PC-BRKFST [facility] Last Admin: 05/01/22 09:32 Dose: 0.4 mg Torsemide (Torsemide 20 Mg Tab) 20 mg PO DAILY [facility] Last Admin: 05/01/22 09:35 Dose: 20 mg PHYSICAL EXAMINATION: GENERAL: The patient is alert and oriented x2, Well developed, well nourished. Elderly-appearing male Obese HEENT: Pupils are round and equally reacting to light. EOMI. no scleral icterus. No conjunctival pallor. Normocephalic, atraumatic. No pharyngeal erythema. No thyromegaly. CARDIOVASCULAR: S1 and S2 muffled PULMONARY: diminished breath sounds bilaterally with some scattered rhonchi with crackles in noted. ABDOMEN: soft. tender on exam. obese. non-distended, normoactive bowel sounds. No palpable organomegaly. Ostomy noted MUSCULOSKELETAL: No joint swelling or deformity. EXTREMITIES: No cyanosis, clubbing, or pedal edema. Mild generalized edema of lower extremities NEUROLOGICAL: Gross neurological examination did not reveal any focal deficits. Diffuse weakness SKIN: No rashes. Assessment: Sigmoid colon mass, status post low anterior resection with anastomotic leak with revision with end colostomy, secondary to ischemic colon Fluid volume overload Acute hypoxic respiratory failure History of septic shock History of diabetes mellitus Hypertension History of COPD, not an exacerbation GI prophylaxis DVT prophylaxis Full code Plan: Recommend to continue with current medications and management with multiple medical consultations following. Nephrology following recommend continuing low-dose torsemide with outpatient follow-up and close monitoring of labs Discussed with urology as well as surgery and okay to trial avoid and remove Bo and if patient does retain will replace indwelling Bo catheter and have patient follow-up in the outpatient setting with urology. Patient with some volume overload and being given torsemide and a dose of IV Lasix will continue with Bo catheter for now and trial void at a later date. Encouraged oral intake and close monitoring of fluids, recommend fluid restrictions Patient with prolonged hospitalization would recommend PT/OT therapy daily and planning on ECF with social work following. [facility] bed able to accommodate patient and will consider possible discharge tomorrow Patient received a PICC line and arranging for IV antibiotics outpatient. Continue with local wound care as well as ostomy care Will transfuse 1 unit of PRBCs on the lower side and recommend repeat labs and will also obtain a chest x-ray. Due to multiple complex medical issues, prognosis is guarded Possible discharge in 24-48 hours The impression and plan of care has been dictated by Erinn Story, nurse practitioner as directed. Dr. Cresencio MD I have performed a history and examination and MDM of this patient, discussed the same with the dictator, and agree with the dictator's assessment and plan as written ,documented as a scribe. Based on total visit time, I have performed more than 50% of the visit. Any additional findings or plans will be noted. Objective - Vital Signs Vital signs: Vital Signs Temp 98.5 F 05/01/22 07:36 Pulse 103 H 05/01/22 07:36 Resp 20 05/01/22 07:36 BP 134/73 05/01/22 07:36 Pulse Ox 94 L 05/01/22 07:36 FiO2 2 04/25/22 11:45 Intake & Output 04/30/22 05/01/22 05/01/22 18:59 06:59 18:59 Intake Total 240 200 Output Total 1900 1800 Balance -1660 -1600 Weight 103.1 kg Intake: Intake, IV Titration 200 Amount Meropenem 1 gm In Sodium 200 Chloride 0.9% 100 ml @ 33 .3 mls/hr IVPB Q8H [facility] Rx #:[id number] Oral 240 Output: Urine 1100 1200 Stool 800 600 Other: Voiding Method Indwelling Catheter Indwelling Catheter ABP, PAP, CO, CI - Last Documented Arterial Blood Pressure 126/50 - Labs CBC & Chem 7: 05/01/22 06:50 05/01/22 06:50 Labs: Abnormal Lab Results - Last 24 Hours (Table) 04/30/22 04/30/22 04/30/22 Range/Units 07:17 11:29 20:45 RBC 3.25 L (4.40-5.60) X 10*6/uL Hgb 8.1 L (13.0-17.0) g/dL Hct 27.9 L (39.6-50.0) % MCH 24.9 L (27.0-32.0) pg MCHC 29.0 L (32.0-37.0) g/dL RDW 21.8 H (11.5-14.5) % Immature Gran # 0.08 H (0.00-0.04) X 10*3/uL Eosinophils # 0.02 L (0.04-0.35) X 10*3/uL POC Glucose (mg/dL) 146 H 135 H (70-110) mg/dL
[2022-05-01 20:14] LABS: Glucose,Whole Blood 190 mg/dL (70-110)
[2022-05-01] MEDS: MELATONIN 3 MG TABLET PO SCH (20:51)
--- NOTE | 2022-05-01 21:55 | P.PN ---
Subjective Progress Note Date: 04/27/22 72-year-old male with a known history of coronary artery disease status post CABG and recent stent placement in February 2022 initially presented to ER with complaints of shortness of breath and exertional dyspnea. Patient initially thought it was due to his heart condition and went to ER. Patient was found to have a hemoglobin of 6.9 and received 1 unit of PRBC. Patient was tested positive for FOBT. Patient is also taking aspirin and Plavix from recent stent placement. Patient also states that he has been taking Motrin for the last couple of weeks for his neuropathy pain in his feet. Denies any complaints of hematemesis dark-colored stools. Patient was transferred to [facility] for GI evaluation. On admission WBC 4.4 hemoglobin 7.5 MCV 79.7 and platelets 243 Sodium 143 potassium 4.2 chloride 101 bicarb is 19 BUN 25 and creatinine 1.72 Calcium 7.4 04/25/2022, the patient is afebrile, the patient has been moved out of the ICU, the patient is breathing comfortably on 2 L nasal cannula oxygen, the patient denies having any chest pain or shortness of Cough, patient apparently was confused last night and his report his dressing with his hands in his wound currently with a sitter at the bedside 04/26/2022, the patient is seen and evaluated in room at bedside; remains to be afebrile, the patient is breathing comfortably on 2 L nasal cannula oxygen, the patient denies having any chest pain or shortness of Cough, patient is more awake and alert today no vomiting or diarrhea has been reported by the nursing staff; con cern about swelling left lower extremity -- Left lower extremity edema/swelling; venous Doppler is ordered and pending fever seems to have resolved however the white count was 14,000 yesterday no CBC has been in today we will check a CBC and CRP with a.m. lab -patient to continue with meropenem daptomycin and monitor clinical course closely 04/27/2022 Patient is seen and evaluated in follow-up on the regular medical floor. He is awake and alert in no acute distress. Oriented 2. parts specialist at the bedside. No worsening shortness of breath, cough or congestion. Maintaining O2 saturations in the 90s on room air. Recurrent fever 100.8. Remains on meropenem, Diflucan. Heparin for DVT prophylaxis. Nutritional support with TPN at 30 MLS per hour. Tolerating a clear liquid diet being advanced to full liquid per surgical services. White count 14.7. Hemoglobin 6.8. Platelets 513. Sodium 137. Potassium 4.5. Bicarb 30. BUN 31. Creatinine 1.25. Gl ucose 168. Objective - Vital Signs Vital signs: Vital Signs Temp 100.8 F H 04/27/22 12:04 Pulse 89 04/27/22 12:04 Resp 18 04/27/22 12:04 BP 98/60 04/27/22 12:04 Pulse Ox 92 L 04/27/22 12:04 FiO2 2 04/25/22 11:45 Intake & Output 04/26/22 04/27/22 04/27/22 18:59 06:59 18:59 Output Total 2350 1200 700 Balance -2350 -1200 -700 Output: Urine 1050 950 700 Stool 1300 250 Other: Voiding Method Indwelling Catheter Indwelling Catheter Indwelling Catheter ABP, PAP, CO, CI - Last Documented Arterial Blood Pressure 126/50 - Exam GENERAL: The patient is alert and oriented x3, not in any acute distress. Well developed, well nourished. HEENT: Pupils are round and equally reacting to light. EOMI. No scleral icterus. No conjunctival pallor. Normocephalic, atraumatic. No pharyngeal erythema. No thyromegaly. CARDIOVASCULAR: S1 and S2 present. No murmurs, rubs, or gallops. PULMONARY: Chest is clear to auscultation, no wheezing or crackles. -ABDOMEN: Soft, nontender, nondistended, normoactive bowel sounds. No palpable organomegaly. Left colostomy back with yellow stool. Surgical wound is healing and closed MUSCULOSKELETAL: No joint swelling or deformity. -EXTREMITIES: No cyanosis, clubbing, or 2+ bilateral pitting leg edema. NEUROLOGICAL: Gross neurological examination did not reveal any focal deficits. SKIN: No rashes. no petechiae. - Labs CBC & Chem 7: 05/01/22 06:50 05/01/22 06:50 Labs: Abnormal Lab Results - Last 24 Hours (Table) 04/26/22 04/26/22 04/27/22 Range/Units 17:08 23:51 05:51 WBC (4.50-10.00) X 10*3/uL RBC (4.40-5.60) X 10*6/uL Hgb (13.0-17.0) g/dL Hct (39.6-50.0) % MCH (27.0-32.0) pg MCHC (32.0-37.0) g/dL RDW (11.5-14.5) % Plt Count (140-440) X 10*3/uL Plt Count Comment Immature Gran # (0.00-0.04) X 10*3/uL Neutrophils # (1.80-7.70) X 10*3/uL Eosinophils # (0.04-0.35) X 10*3/uL BUN 31 H (9-20) mg/dL POC Glucose (mg/dL) 167 H 246 H (70-110) mg/dL Calcium 8.0 L (8.4-10.2) mg/dL Alkaline Phosphatase 140 H (38-126) U/L C-Reactive Protein 14.9 H (<1.0) mg/dL Total Protein 5.8 L (6.3-8.2) g/dL Albumin 2.8 L (3.5-5.0) g/dL 04/27/22 04/27/22 Range/Units 05:51 11:18 WBC 14.77 H (4.50-10.00) X 10*3/uL RBC 2.86 L (4.40-5.60) X 10*6/uL Hgb 6.8 L* (13.0-17.0) g/dL Hct 24.5 L (39.6-50.0) % MCH 23.8 L (27.0-32.0) pg MCHC 27.8 L (32.0-37.0) g/dL RDW 21.6 H (11.5-14.5) % Plt Count 513 H (140-440) X 10*3/uL Plt Count Comment INCREASED A Immature Gran # 0.14 H (0.00-0.04) X 10*3/uL Neutrophils # 12.61 H (1.80-7.70) X 10*3/uL Eosinophils # 0.01 L (0.04-0.35) X 10*3/uL BUN (9-20) mg/dL POC Glucose (mg/dL) 168 H (70-110) mg/dL Calcium (8.4-10.2) mg/dL Alkaline Phosphatase (38-126) U/L C-Reactive Protein (<1.0) mg/dL Total Protein (6.3-8.2) g/dL Albumin (3.5-5.0) g/dL Microbiology - Last 24 Hours (Table) 04/20/22 15:40 Blood Culture - Final Blood No Growth after 144 hours Assessment and Plan Assessment: Sigmoid colon mass status post low anterior resection postoperative day #10 with 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 Anastomotic leak and ischemic bowel following low anterior resection patient is currently postoperative day #6 abdominal washout, takedown of anastamosis with left colectomy and colostomy formation LUQ. Shock likely septic shock secondary to above and patient is currently off vasopressor support and blood pressure is stable Acute hypoxic respiratory failure requiring intubation, patient has been extubated on 04/21/2022 and continues on 2L of oxygen via nasal cannula. Acute blood loss anemia from GI bleed secondary to sigmoid colon mass. Patient has received 3 units of blood this admission. Hemoglobin stable at 7.6 Acute kidney injury prerenal with acute tubular necrosis, improved Postoperative urinary retention with indwelling catheter placed Microcytic anemia with iron deficiency. Hyperglycemia Coronary artery disease with history of stent placement in February 2022 Coronary artery disease history of CABG Plan: Keep the patient in the ICU following now Advance diet per surgery team, currently on liquid diet, taper off TPN Continue with IV Lasix twice daily Continue with antibiotic as per ID team, currently on meropenem, daptomycin and fluconazole Continue with Levemir and) and with a glucose Continue with aspirin No need for blood transfusion and keep monitoring hemoglobin Monitor creatinine several consultants on the case including pulmonary/critical care team, surgery team, nephrology team and infectious disease team Labs and medication were reviewed.. Continue same treatment. Continue with symptomatic treatment. Resume home medication. Monitor labs and vitals. DVT and GI prophylaxis. Further recommendations as per clinical course of the patient DVT prophylaxis: Subcutaneous heparin
[2022-05-01] MEDS: HYDROmorphone 1 MG/ML 1 ML SYRINGE IVP PRN (22:20)
[2022-05-02] MEDS: HEPARIN SODIUM,PORCINE/PF 5,000 UNIT/0.5 ML SYRINGE SQ SCH ×2 (00:25→08:44)
[2022-05-02] MEDS: INSULIN ASPART (NovoLOG) 100 UNIT/ML VIAL SQ SCH ×2 (04:17→07:18)
[2022-05-02] MEDS: MEROPENEM 1 GM in SODIUM CHLORIDE 0.9% 100 ML IVPB SCH (04:51)
[2022-05-02 04:59] LABS: Glucose,Whole Blood 42 mg/dL (70-110)
[2022-05-02 05:00] LABS: Glucose,Whole Blood 259 mg/dL (70-110)
[2022-05-02 05:35] LABS: Glucose,Whole Blood 103 mg/dL (70-110)
[2022-05-02 06:43] LABS: Glucose,Whole Blood 127 mg/dL (70-110)
[2022-05-02 07:12] LABS: Glucose,Whole Blood 118 mg/dL (70-110)
[2022-05-02] MEDS: INSULIN DETEMIR (LEVEMIR) 100 UNIT/ML SYR SQ SCH (07:19)
[2022-05-02 07:33] VITALS: RESP 18
[2022-05-02] MEDS: METOPROLOL TARTRATE 25 MG TAB PO SCH (08:44)
[2022-05-02] MEDS: FAMOTIDINE 20 MG/2 ML VIAL IV SCH (08:44)
[2022-05-02] MEDS: TORSEMIDE 20 MG TAB PO SCH (08:44)
[2022-05-02] MEDS: FLUCONAZOLE IN NACL,ISO-OSM 200 MG in SALINE 1 100ML.BAG IVPB SCH (08:44)
[2022-05-02] MEDS: TAMSULOSIN 0.4 MG CAP.ER.24H PO SCH (08:44)
[2022-05-02] MEDS: MIDODRINE 5 MG TAB PO SCH ×2 (08:44→13:29)
[2022-05-02] MEDS: ATORVASTATIN 40 MG TAB PO SCH (08:44)
[2022-05-02] MEDS: ASPIRIN 81 MG PO SCH (08:44)
[2022-05-02] MEDS: SIMETHICONE 40 MG/0.6 ML DROPS 2,000 MG/30 ML BOTTLE PO SCH (08:45)
[2022-05-02] MEDS ORDERED: HYDROcodone/APAP 5-325MG 1 EACH TAB PO PRN (09:47)
--- NOTE | 2022-05-02 09:47 | XR ---
EXAMINATION TYPE: XR chest 1V portable DATE OF EXAM: 05/02/2022 COMPARISON: 04/30/2022 HISTORY: Shortness of breath TECHNIQUE: Single frontal view of the chest is obtained. FINDINGS: Heart is enlarged and there is bilateral small effusions and diffuse interstitial pattern with basilar consolidation on the left. No sizable pneumothorax. Left-sided PICC line noted. Osseous structures stable. Postsurgical changes noted. IMPRESSION: 1. Correlate for CHF with left basilar infiltrate stable in appearance.
--- NOTE | 2022-05-02 10:06 | CT ---
EXAMINATION TYPE: CT brain wo con DATE OF EXAM: 05/02/2022 COMPARISON: None HISTORY: Altered mental status. CT DLP: 1012.[address] of the brain was performed. The ventricles, basal cisterns and sulci overlying the cerebral convexities demonstrate mild enlargem ent. There is no evidence for intracranial hemorrhage or sulcal effacement. There is decreased attenuation about the periventricular white matter and deep white matter of both c erebral hemispheres, compatible with chronic small vessel ischemia. Differential diagnosis does inclu de demyelination. No mass effects are seen.No midline shift. Osseous calvarium is intact. If symptoms persist consider MRI. IMPRESSION: 1. Age related atrophic and chronic small vessel ischemic change without acute intracranial process s een at this time.
[2022-05-02 10:42] LABS: Basophils # (A) 0.04 X 10*3/uL (0.00-0.10); Basophils % (A) 0.6 %; Eosinophils # (A) 0.01 X 10*3/uL (0.04-0.35); Eosinophils % (A) 0.2 %; HCT 33.4 % (39.6-50.0); HGB 9.5 g/dL (13.0-17.0); Immature Grans, Automated 1.2 %; Lymphocytes # (A) 0.57 X 10*3/uL (0.90-5.00); Lymphocytes % (A) 8.7 %; MCH 25.2 pg (27.0-32.0); MCHC 28.4 g/dL (32.0-37.0); MCV 88.6 fL (80.0-97.0); Mean Platelet Volume 11.3 fL (9.5-12.2); Monocytes % (A) 9.1 %; NRBC Per 100 WBC 0 /100 WBCS (0.0-0.0); Neutrophils # (A) 5.27 X 10*3/uL (1.80-7.70); Neutrophils % (A) 80.2 %; Platelet Count 374 X 10*3/uL (140-440); RBC 3.77 X 10*6/uL (4.40-5.60); RDW 20.8 % (11.5-14.5); WBC 6.57 X 10*3/uL (4.50-10.00)
[2022-05-02 10:57] LABS: Magnesium 1.8 mg/dL (1.5-2.4)
[2022-05-02 11:01] LABS: African American GFR (CKD) 61.5 (60.0-200.0); BUN/Creat Ratio 16.84 Ratio (12.00-20.00); Blood Urea Nitrogen 22.4 mg/dL (9.0-27.0); Calcium 8.7 mg/dL (8.7-10.3); Carbon Dioxide 31.7 mmol/L (20.0-27.5)
[2022-05-02 11:06] LABS: Glucose,Whole Blood 148 mg/dL (70-110)
[2022-05-02 12:12] VITALS: BP 109/65; PULSE 87; TEMP 98.3
[2022-05-02] MEDS ORDERED: INSULIN ASPART (NovoLOG) 100 UNIT/ML VIAL SQ SCH (12:30)
--- NOTE | 2022-05-02 12:33 | P.PN ---
Subjective Progress Note Date: 05/02/22 This is a 72-year-old male patient was brought into the intensive care unit after having his second surgery on 04/17/2022 which involved expiratory laparotomy, the patient had the surgery for an underlying anastomotic leak. The patient underwent a abdominal washout and takedown of anastomosis and colectomy and colostomy in the left upper quadrant. Estimated blood loss was around 25 mL. Postop, the patient was kept intubated on a mechanical ventilator. He was brought into the intensive care unit. He was quite hypotensive. His CVP was low on the eighth. He will received a total of saline boluses and following that he was started on pressors. Currently norepinephrine is running at 0.24 mcg/kg/m. The patient is intubated on a mechanical ventilator. Is currently on propofol at 45 mcg/kg/m and the patient is currently on assist control mode at a rate of 20, tidal volume of 450, FiO2 40% and a PEEP of 5. Note that overnight, the patient was found to be acidotic. He was given IV bicarb and following that he was started on a bicarbonate infusion which is still running at the rate of 150 mL an hour. Serum bicarb today is up to 20. Blood gas from today showed a pH of 7.38 with episodes of 34 and a pO2 of 120 and this was on FiO2 of 50%. WBC count is at 7.5 with a hemoglobin of 8.4 and a platelet count of 243. He did not fluid balance is positive for liters at least over the past 12 hours. The patient remains on IV Zosyn. He is adequately sedated. His colostomy site is light pink without evidence of any necrosis. The patient has no output in the colostomy bag. Surgical 1 site was inspected. The patient has retention sutures. There is leak of serosanguineous/bloody effusion from the one surface. The patient has a large midabdominal incision extending above and below the umbilicus all the way down to his pelvis. He does have scrotal edema. He does have +1 pitting edema. Orogastric tube is also in place. Ultrasound OG is only 200 over the past 8 hours. Note that this patient has history of coronary artery disease with previous bypass surgery and had a recent stent placement in February 2022. He came into the emergency department for shortness of breath. He was found to be intimate with a hemoglobin of 6.9. Given a unit of packed RBC. His fecal occult blood was positive. He underwent EGD and colonoscopy. EGD showed moderately sized hiatal hernia and colonoscopy showed a circumferential sigmoid mass 28 cm from the anal verge and 5 mm rectal polyp. Based on that, the patient was taken to the operating room on 04/13/2022 and the patient underwent a low anterior resection on 04/13/2022. His course was complicated by development of abdominal distention and worsening shortness of breath. This occurred on postoperative day #4. A CAT scan of the abdomen was done yesterday that showed evidence of a moderate to large amount of free intraperitoneal air consistent with anastomotic leak. There was also moderate bilateral pleural effusions. There was small amount of ascites around the liver. There was large hiatal hernia and by the edema. Chest x-ray from today is showing cardiomegaly, bilateral pleural effusion, is about the pulmonary infiltrates, thoracotomy wires, triple-lumen catheter in his left IJ and adequate positioning of the orogastric tube. There is evidence also of bilateral pleural effusions. On 04/19/2022, the patient remains intubated on a mechanical ventilator. The patient is postop day #2. THE patient had an anastomotic leak following bowel surgery in a patient presented to the intensive care following his surgery intubated on a mechanical ventilator. This morning, the patient is on propofol running at 45 mcg/kg/m. His calm and comfortable and symptoms mechanical ventilator. At the same time, is on assist control mode at a rate of 20, tidal volume of 450, FiO2 of 40% with a PEEP of 5. The blood gas from this morning shows a pH of 7.42 pCO2 of 42 and pO2 of 92. The chest x-ray from today is mychal wing bilateral pleural effusion/consolidation is worse on the right. 82 is around 1.5 cm away from judah. Triple-lumen catheter was also placed in his left IJ. Hemodynamically, the patient is on IV fluids and currently is on bicarb infusion running at the rate of 75 mL an hour. His bicarb can be discontinued as the patient's serum bicarb is up to 25. Sodium is at 137 with a potassium level of 3.[address] Urine output is in order of 150 mL an hour. His overall fluid balance over the past 24 hours has been +3.5 L. In terms of hemodynamic support, the patient is on norepinephrine running at 0.1 mcg/kg/m. He also has vasopressin at physiologic dose at 0.03 units an hour. Cardiac rhythm is sinus. The patient was started on TPN for nutritional support which is running at the rate of 30 mL an hour. He is showing some signs of fluid overload with increase in scrotal edema. The colostomy stoma is viable. The tissue looks healthy. There is some liquidy material collecting in the bag. The abdomen is distended. Surgical wound is open and there is some limited serosanguineous material from the surgical one-sided. Orogastric tube in place. Output from the OG has been in the order of 10-20 mL over the past 24 hours. Patient is calm and comfortable. He is running episodes of fever. His T-max was 102. Blood culture is negative. Intra-abdominal cultures are still pending for now. The 2022, the patient's postop day #3 following his surgery for anastomotic leak, colectomy and diverticular colostomy. On today's evaluation, the patient remains on a mechanical ventilator. He is currently on propofol which is running at 45 mcg/kg/m and his well rested. He remains on a mechanical ventilator. He is on assist control mode at the rate of 20, tidal volume of 450, FiO2 of 40% and PEEP of 5. The chest x-ray from today shows cardiomegaly, ET tube is in a good location, the patient has a triple-lumen cath in the right IJ. There is also evidence of bilateral pleural effusion which is essentially unchanged compared to yesterday and the findings of essentially stable for now. The blood gas shows a pH of 7.48 with a pCO2 of 39 and pO2 of 79. The patient is quite segments on mechanical ventilator. Hemodynamically, the patient is on KVO IV fluids. He did have significant fluid resuscitation. And IV fluids were cut down yesterday. He remains on pressors and norepinephrine is running at the rate of 0.03 mcg/kg/m. As such, his blood pressure has stabilized and he was also taken off the vasopressin. Cardiac rhythm is still sinus. Urine output is adequate for now. The patient was also started on TPN for nutritional support. On today's evaluation, the surgical wound is draining purulent foul-smelling material. The colostomy is viable and there is stool output in the colostomy bag. In terms of cultures, the wound needs to be cultured. The blood culture is negative. The abdominal wound cultures collected intraoperatively are still pending for now. The patient remains on IV Zosyn for now. Blood work shows a dull retrosternal 9 with a hemoglobin of 7.5 and a platelet count of 204. The sodium is at 135, potassium is to be replaced at 2.9 and the patient has a BUN of 22 with a creatinine of 1.36 and his acute kidney injury is also improving. Blood sugars at 202. Patient is on Levemir insulin 25 units twice a day and is also on sliding scale insulin coverage. Blood sugars under adequate control for now. Reevaluated today on 04/21/2022, patient is now postoperative day #4. Patient is status post surgery for an anastomotic leak, colectomy and diverticular colostomy. Remains in the ICU intubated and mechanically ventilated. He is on assist control rate of 20 tidal volume 450 FiO2 40% and PEEP of 5 ABG showed a pO2 of 97 pCO2 of 40 pH of 7.51 as no changes were made in the vent settings. Patient is still requiring norepinephrine at 0.02 mcg/kg/m propofol at 45 mcg/kg/m is also on TPN at 59 mL/h. Patient has good urine output, his ostomy seems to be functional. Chest x-ray continues to show small bilateral pleural effusions, endotracheal tube and catheters are in the proper position. WBC count is 12.2 hemoglobin is 7.7, basic metabolic profile is normal renal profile showed a BUN of 19 and creatinine of 1.34, steadily improving over the last 10 days. Patient is now sedated, and I plan to hold sedation on this patient today, address weaning parameters, and possibly give the patient weaning trial. Reevaluated today on 04/22/2022, patient remains in the ICU, he was extubated yesterday to BiPAP, and he remained overnight. Patient is on 12/6 and 40% FiO2 however after evaluating the patient today I switch him to nasal cannula. Patient is not in any distress. He is arousable, follows very simple instructions. And he is not in any distress his ostomy seems to be functioning he is still receiving TPN at 64 mL per hour and his IV fluid is at KVO. Continues to have good urine output WBC count is 12.4 hemoglobin 7.8 electrolytes are normal renal profile is showing improvement creatinine is down to 1.33. Chest x-ray continues to show small bilateral pleural effusions and mild pulmonary vascular congestion and cardiomegaly Reevaluated today on , remains in the ICU, patient tolerated extubation well for the last 2 days. Off BiPAP, on nasal cannula, O2 saturation is in the mid 90s on 2 L nasal cannula. Patient had low-grade temp last night, 99.6. He is hemodynamically stable, not in any distress, at times noted to be a bit lethargic and confused by the nurse, but on physical examination today, the patient seems to be quite appropriate. WBC count is 13.5 hemoglobin 7.6 basic metabolic profile is normal renal profile showed a creatinine of 1.23, steadily improving. Different cultures from the wound and from the abdomen were noted. Blood cultures have been negative. No chest x-ray was done today, but chest x- ray from yesterday showed small bilateral pleural effusions and mild pulmonary vascular congestion. Patient did receive Lasix yesterday. Reevaluated today on 04/24/2022, patient remains in the ICU, doing fairly well, no major issues overnight. Patient still doing a bit poorly with incentive spirometry, he has been up in the chair, continues to have scrotal edema and that's quite significant continues to have bipedal edema now he is on a maintenance dose of Lasix 20 mg twice a day. His antibiotics have been changed per infectious disease now he is on Merrem and daptomycin as well as Diflucan. Today I am cutting down the TPN to have dose since the patient is already tolerating oral intake. Tomorrow will likely discontinue TPN and go to full diet. Hemoglobin is a bit low today at 6.9, may consider transfusing the patient if the hemoglobin continues to drift down. Baseline has been in the 7.5 range for the last 5 days basic metabolic profile is normal renal profile is normal except for creatinine of 1.26, slightly worse today compared to yesterday and it was 1.23 yesterday. Patient is being followed by nephrology.. No chest x-ray has been done. The patient is seen today 04/25/2022 in follow-up on the regular medical floor. He was transferred out of the intensive care unit yesterday. He was doing quite well. Maintaining good O2 saturations in the 90s on 2 L/m per nasal cannula. Chest x-ray reveals bilateral infiltrate and pleural effusion stable. Slight improvement. He's been afebrile. Hemodynamically stable. He did receive 1 unit of packed red blood cells yesterday. Current hemoglobin 7.3. Blood cultures positive for gram-negative bacilli in the abdominal wound. White count 14.9. Hemoglobin 7.3. Platelets 458. Sodium 134. Potassium 4.6. Bicarb 29. BUN 31. Creatinine 1.27. Glucose 98. He remains on IV diuretics. Currently in a positive balance. Remains on antibiotics in the form of meropenem and daptomycin. Continued on Diflucan. Being nourished with TPN. Tolerating a full liquid diet. He did have some issues with confusion through the night and had pulled off his colostomy bag, pulled off his dressing and packing to his open abdominal wound. Pulled out his IV. The patient is seen today 04/26/2022 in follow-up on the regular medical floor. He is currently sitting up in bed. More awake and alert. Cooperative. public service director at the bedside. Denies any worsening shortness of breath, cough or congestion. He is maintaining good O2 saturations in the 90s on 2 L/m per nasal cannula. BUN nourished with TPN at 36 ML's per hour. He is tolerating a full liquid diet. Abdominal wound cultures are positive for Enterobacter cloacae, Enterococcus faecalis and E. coli. Sodium 135. Potassium 4.5. Bicarb 28. BUN 32. Creatinine 1.22. Glucose 68. He is continued on fluconazole, daptomycin and meropenem. Remains on IV diuretics. Currently in a -2.2 L balance The patient is seen today 04/27/2022 in follow-up on the regular medical floor. He is awake and alert in no acute distress. Oriented 2. public service director at the bedside. No worsening shortness of breath, cough or congestion. Maintaining O2 saturations in the 90s on room air. Recurrent fever 100.8. Remains on meropenem, Diflucan. Heparin for DVT prophylaxis. Nutritional support with TPN at 30 MLS per hour. Tolerating a clear liquid diet being advanced to full liquid per surgical services. White count 14.7. Hemoglobin 6.8. Platelets 513. Sodium 137. Potassium 4.5. Bicarb 30. BUN 31. Creatinine 1.25. Glucose 168. The patient is seen today 04/29/2022 in follow-up on the regular medical floor. He is currently sitting up in a chair at the bedside.. Awake and alert. No worsening shortness of breath, cough or congestion. Currently maintaining O2 saturations in the 90s on room air. He is tolerating a regular diet. TPN still at 30 MLS per hour. He had a PICC line placed today for long-term antibiotic therapy. Abdominal wound cultures were positive for Enterobacter cloacae, E. coli, Enterococcus faecalis. He was having some issues with left lower extremity edema and Doppler ruled out DVT. White count 10.6. Hemoglobin 8.0. Sodium 137. Potassium 4.5. Bicarb 31. BUN 28. Creatinine 1.20. Initial glucose 47. Currently 94. He remains on meropenem, Diflucan. Heparin for DVT prophylaxis. Continued on bronchodilators. The patient is seen today 04/30/2022 in follow-up on the regular medical floor. He remains awake and alert in no acute distress. Sitting up in a chair at the bedside. Maintaining O2 saturations in the 90s on room air. Chest x-ray reveals stable bilateral infiltrates/pleural effusions with mild CHF. Remains on oral diuretics. No IV fluids. He has a PICC line placed. Antibiotics per ID services. Remains on bronchodilators. Currently on meropenem, Diflucan. White count 9.0. Hemoglobin 8.1. Platelets 426. Sodium 135. Potassium 4.7. Bicarb 28. BUN 26. Creatinine 1.10. Glucose 136. The patient is seen today 05/01/2022 in follow-up on the regular medical floor. He sitting up in a chair at the bedside. Awake and alert in no acute distress. Denies any worsening shortness of breath, cough or congestion. He is maintaining good O2 saturations in the 90s on room air. He was given Lasix 40 mg IVP 1 today. He's currently in a -3.2 L balance. Previous abdominal wound cultures were positive for Enterobacter Cloacae, E. coli and Enterococcus faecalis. He is continued on meropenem, Diflucan. Remains on heparin for DVT prophylaxis. White count 8.0. Hemoglobin 7.9. Platelets 418. Sodium 139. Potassium 4.4. BUN 23. Creatinine 1.2. The patient is seen today 05/01/2022 in follow-up on the regular medical floor. He is currently resting in bed. Awake and alert in no acute distress. No worsening shortness of breath, cough or congestion.continues to maintain good O2 saturations in the high 90s on 3 L/m per nasal cannula. He's been afebrile. Hemodynamically stable. He was having issues with hypoglycemia which is being addressed by medicine. white count 6.5. Hemoglobin 9.5. Sodium 141. Potassium 4.0. Bicarb 32. BUN 22. Creatinine 1.3. Current glucose 142. Al virus by PCR not detected. Chest x-ray reveals evidence of fluid volume overload with a stable left basilar infiltrate. ccomputed tomography scan of the brain revealed age-related atrophic and chronic small vessel ischemic changes without acute intracranial process. follow-up blood culture revealed no growth.He is continued on meropenem. Remains on oral diuretics. Heparin for DVT prophylaxis. Objective - Vital Signs Vital signs: Vital Signs Temp 98.3 F 05/02/22 11:57 Pulse 87 05/02/22 11:57 Resp 18 05/02/22 11:57 BP 109/65 05/02/22 11:57 Pulse Ox 98 05/02/22 11:57 FiO2 2 04/25/22 11:45 Intake & Output 05/01/22 05/02/22 05/02/22 18:59 06:59 18:59 Intake Total 310 Output Total 3300 1800 775 Balance -6159 -3582 -627 Intake: Blood Product 310 Rc As-1 Unit 310 [id number] Output: Urine 3000 1800 475 Stool 300 300 Other: Voiding Method Indwelling Catheter Indwelling Catheter Indwelling Catheter ABP, PAP, CO, CI - Last Documented Arterial Blood Pressure 126/50 - Exam GENERAL EXAM: Alert, 72-year-old male patient, comfortable in no apparent d istress. HEAD: Normocephalic. EYES: Normal reaction of pupils, equal size. NOSE: Clear with pink turbinates. THROAT: No erythema or exudates. NECK: No masses, no JVD. Left IJ catheter remains in place CHEST: No chest wall deformity. LUNGS: Equal air entry with few crackles in the posterior bases. CVS: S1 and S2 normal with no audible murmur, regular rhythm. ABDOMEN: Colostomy in the left upper quadrant. The colon tissue is pink and viable. His stool output in the colostomy bag. SPINE: No scoliosis or deformity SKIN: No rashes CENTRAL NERVOUS SYSTEM: No focal deficits, tone is normal in all 4 extremities. EXTREMITIES: PICC line to the upper extremities. There is 1-2+ peripheral edema. No clubbing, no cyanosis. Peripheral pulses are intact. - Labs CBC & Chem 7: 05/02/22 07:00 05/02/22 07:00 Labs: Abnormal Lab Results - Last 24 Hours (Table) 05/01/22 05/01/22 05/01/22 Range/Units 11:48 17:21 20:12 RBC (4.40-5.60) X 10*6/uL Hgb (13.0-17.0) g/dL Hct (39.6-50.0) % MCH (27.0-32.0) pg MCHC (32.0-37.0) g/dL RDW (11.5-14.5) % Immature Gran # (0.00-0.04) X 10*3/uL Lymphocytes # (0.90-5.00) X 10*3/uL Eosinophils # (0.04-0.35) X 10*3/uL Carbon Dioxide (20.0-27.5) mmol/L Est GFR (CKD-EPI)NonAf (60.0-200.0) Glucose (70-110) mg/dL POC Glucose (mg/dL) 141 H 190 H (70-110) mg/dL Crossmatch See Detail 05/02/22 05/02/22 05/02/22 Range/Units 04:55 04:59 06:41 RBC (4.40-5.60) X 10*6/uL Hgb (13.0-17.0) g/dL Hct (39.6-50.0) % MCH (27.0-32.0) pg MCHC (32.0-37.0) g/dL RDW (11.5-14.5) % Immature Gran # (0.00-0.04) X 10*3/uL Lymphocytes # (0.90-5.00) X 10*3/uL Eosinophils # (0.04-0.35) X 10*3/uL Carbon Dioxide (20.0-27.5) mmol/L Est GFR (CKD-EPI)NonAf (60.0-200.0) Glucose (70-110) mg/dL POC Glucose (mg/dL) 42 L 259 H 127 H (70-110) mg/dL Crossmatch 05/02/22 05/02/22 05/02/22 Range/Units 07:00 07:00 07:11 RBC 3.77 L (4.40-5.60) X 10*6/uL Hgb 9.5 L (13.0-17.0) g/dL Hct 33.4 L (39.6-50.0) % MCH 25.2 L (27.0-32.0) pg MCHC 28.4 L (32.0-37.0) g/dL RDW 20.8 H (11.5-14.5) % Immature Gran # 0.08 H (0.00-0.04) X 10*3/uL Lymphocytes # 0.57 L (0.90-5.00) X 10*3/uL Eosinophils # 0.01 L (0.04-0.35) X 10*3/uL Carbon Dioxide 31.7 H (20.0-27.5) mmol/L Est GFR (CKD-EPI)NonAf 53.0 L (60.0-200.0) Glucose 142 H (70-110) mg/dL POC Glucose (mg/dL) 118 H (70-110) mg/dL Crossmatch 05/02/22 Range/Units 11:04 RBC (4.40-5.60) X 10*6/uL Hgb (13.0-17.0) g/dL Hct (39.6-50.0) % MCH (27.0-32.0) pg MCHC (32.0-37.0) g/dL RDW (11.5-14.5) % Immature Gran # (0.00-0.04) X 10*3/uL Lymphocytes # (0.90-5.00) X 10*3/uL Eosinophils # (0.04-0.35) X 10*3/uL Carbon Dioxide (20.0-27.5) mmol/L Est GFR (CKD-EPI)NonAf (60.0-200.0) Glucose (70-110) mg/dL POC Glucose (mg/dL) 148 H (70-110) mg/dL Crossmatch Assessment and Plan Assessment: Acute hypoxic respiratory failure secondary to abdominal sepsis and septic shock, patient was extubated uneventfully on 04/21/2022. Acute surgical abdomen secondary to anastomotic leak following a sigmoid resection and low AP resection from initial surgery performed on 04/13/2022, status post left colectomy and diverting colostomy Septic shock secondary to above secondary to abdominal sepsis, remains on antibiotics. Surgical wound infection Sigmoid colon mass, post low AP resection performed on 04/13/2022 Underlying coronary artery disease and previous CABG Chronic kidney disease stage III GI bleeding secondary to sigmoid colon tumor Anemia, status post 2 unit packed red blood cells this admission. Current hemoglobin 9.5. Diabetes mellitus, Type 2 Dyslipidemia Anasarca and scrotal edema secondary to hypoproteinemia patient is presently on TPN. Valvular heart disease with moderate degree of mitral regurgitation and severe tricuspid regurgitation with pulmonary hypertension Underlying COPD Benign prostatic hypertrophy Plan: The patient was seen and evaluated Medications and labs reviewed Tolerating a regular diet Continued on diuretics Cleared for discharge from the pulmonary standpoint I have personally seen and examined the patient, performed the documentation and the assessment and plan as written. Number of minutes spent on the visit: 10.
--- NOTE | 2022-05-02 12:36 | P.PN ---
Subjective Patient is seen in follow-up for acute kidney injury. Underwent exploratory laparotomy with washout of abdomen with colostomy placement on 04/17/2022. Nonoliguric. Renal function stable. On oral diuretics. Tolerating oral intake. Denies chest pain or shortness of breath. No active complaints. Vital signs are stable. General: Resting in bed. HEENT: On nasal cannula. LUNGS: No audible rhonchi or wheezes. HEART: Rate and Rhythm are regular. ABDOMEN: Colostomy noted. EXTREMITITES: Trace edema bilateral lower extremities. Objective - Vital Signs Vital signs: Vital Signs Temp 98.3 F 05/02/22 11:57 Pulse 87 05/02/22 11:57 Resp 18 05/02/22 11:57 BP 109/65 05/02/22 11:57 Pulse Ox 98 05/02/22 11:57 FiO2 2 04/25/22 11:45 Intake & Output 05/01/22 05/02/22 05/02/22 18:59 06:59 18:59 Intake Total 310 Output Total 3300 1800 775 Balance -9160 -1800 -778 Intake: Blood Product 310 Rc As-1 Unit 310 [id number] Output: Urine 3000 1800 475 Stool 300 300 Other: Voiding Method Indwelling Catheter Indwelling Catheter Indwelling Catheter ABP, PAP, CO, CI - Last Documented Arterial Blood Pressure 126/50 - Labs CBC & Chem 7: 05/02/22 07:00 05/02/22 07:00 Labs: Abnormal Lab Results - Last 24 Hours (Table) 05/01/22 05/01/22 05/01/22 Range/Units 11:48 17:21 20:12 RBC (4.40-5.60) X 10*6/uL Hgb (13.0-17.0) g/dL Hct (39.6-50.0) % MCH (27.0-32.0) pg MCHC (32.0-37.0) g/dL RDW (11.5-14.5) % Immature Gran # (0.00-0.04) X 10*3/uL Lymphocytes # (0.90-5.00) X 10*3/uL Eosinophils # (0.04-0.35) X 10*3/uL Carbon Dioxide (20.0-27.5) mmol/L Est GFR (CKD-EPI)NonAf (60.0-200.0) Glucose (70-110) mg/dL POC Glucose (mg/dL) 141 H 190 H (70-110) mg/dL Crossmatch See Detail 05/02/22 05/02/22 05/02/22 Range/Units 04:55 04:59 06:41 RBC (4.40-5.60) X 10*6/uL Hgb (13.0-17.0) g/dL Hct (39.6-50.0) % MCH (27.0-32.0) pg MCHC (32.0-37.0) g/dL RDW (11.5-14.5) % Immature Gran # (0.00-0.04) X 10*3/uL Lymphocytes # (0.90-5.00) X 10*3/uL Eosinophils # (0.04-0.35) X 10*3/uL Carbon Dioxide (20.0-27.5) mmol/L Est GFR (CKD-EPI)NonAf (60.0-200.0) Glucose (70-110) mg/dL POC Glucose (mg/dL) 42 L 259 H 127 H (70-110) mg/dL Crossmatch 05/02/22 05/02/22 05/02/22 Range/Units 07:00 07:00 07:11 RBC 3.77 L (4.40-5.60) X 10*6/uL Hgb 9.5 L (13.0-17.0) g/dL Hct 33.4 L (39.6-50.0) % MCH 25.2 L (27.0-32.0) pg MCHC 28.4 L (32.0-37.0) g/dL RDW 20.8 H (11.5-14.5) % Immature Gran # 0.08 H (0.00-0.04) X 10*3/uL Lymphocytes # 0.57 L (0.90-5.00) X 10*3/uL Eosinophils # 0.01 L (0.04-0.35) X 10*3/uL Carbon Dioxide 31.7 H (20.0-27.5) mmol/L Est GFR (CKD-EPI)NonAf 53.0 L (60.0-200.0) Glucose 142 H (70-110) mg/dL POC Glucose (mg/dL) 118 H (70-110) mg/dL Crossmatch 05/02/22 Range/Units 11:04 RBC (4.40-5.60) X 10*6/uL Hgb (13.0-17.0) g/dL Hct (39.6-50.0) % MCH (27.0-32.0) pg MCHC (32.0-37.0) g/dL RDW (11.5-14.5) % Immature Gran # (0.00-0.04) X 10*3/uL Lymphocytes # (0.90-5.00) X 10*3/uL Eosinophils # (0.04-0.35) X 10*3/uL Carbon Dioxide (20.0-27.5) mmol/L Est GFR (CKD-EPI)NonAf (60.0-200.0) Glucose (70-110) mg/dL POC Glucose (mg/dL) 148 H (70-110) mg/dL Crossmatch Assessment and Plan Plan: Assessment: 1. Acute kidney injury secondary to ATN and urinary retention. Creatinine peaked at 2.86 this admission is fairly stable at 1.3 today. No hydronephrosis noted on kidney ultrasound. UA fairly benign. 2. GI bleed status post blood transfusion this admission. Hemoglobin 7.3 04/25/22. 3. 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 Status post exploratory laparotomy with washout of abdomen and colostomy 04/17/2022. 4. Volume overload. Improved with diuresis. 5. Metabolic acidosis secondary to acute kidney injury and IV fluids. Also GI losses. s/p bicarb drip. Resolved. 6. Diabetes mellitus. 7. Coronary disease status post CABG and cardiac stenting. 8. Urinary retention. Has Bo catheter. On Flomax. Urology following. 9. Hypokalemia from diuresis and hypomagnesemia. Replaced. Improved. 10. Hypomagnesemia from diuresis and GI losses. Replaced. Improved. Plan: Maintain torsemide. Continue to monitor renal function and urine output. Avoid nephrotoxins. Maintain midodrine. Hold for systolic blood pressure greater than 110. Repeat BMP and magnesium of 2-3 days postdischarge. Follow up outpatient in 1-2 weeks.
--- NOTE | 2022-05-02 12:43 | P.DS ---
Providers Date of admission: 04/09/22 20:32 Expected date of discharge: 05/02/22 Attending physician: Ad Dupont Consults: 04/09/22 20:32 Consult Physician Urgent Consulting Provider: [facility] Consult Reason/Comments: Chest pain, dyspnea Do you want consulting provider notified?: Yes 04/11/22 15:52 Consult Physician Urgent Consulting Provider: Pierre Carrera Consult Reason/Comments: sigmoid mass Do you want consulting provider notified?: Yes 04/15/22 03:46 Consult Physician Routine Consulting Provider: Long Santillan Consult Reason/Comments: unable to void/IDC not working Do you want consulting provider notified?: Yes, Notify in am 04/17/22 09:18 Consult Physician Routine Consulting Provider: Frederick Layne Consult Reason/Comments: acute kidney injury Do you want consulting provider notified?: Yes 04/17/22 18:44 Consult Physician Stat Consulting Provider: Mingo Neff Consult Reason/Comments: ICU management Do you want consulting provider notified?: Already Contacted 04/20/22 11:58 Consult Physician Routine Consulting Provider: Casie Bardales Consult Reason/Comments: polymicrobial abd wound culture Do you want consulting provider notified?: Yes Primary care physician: Ed Ferro Hospital Course: Final diagnosis Sigmoid colon mass, status post low anterior resection with anastomotic leak with revision with end colostomy, secondary to ischemic colon Fluid volume overload Acute hypoxic respiratory failure History of septic shock History of diabetes mellitus Hypertension History of COPD, not an exacerbation GI prophylaxis DVT prophylaxis Full code Discharge disposition Patient is being discharged in a stable condition with guarded prognosis to [facility]. Patient will follow-up with Dr. Ferro/ Kyle Hall in the outpatient setting upon discharge. Patient is to continue with IV antibiotic per ID recommendations for the next 2 weeks as scheduled. Recommend close outpatient follow-up with consultations including nephrology, infectious disease, general surgery in the next 1-2 weeks. Recommend repeat labs including CMP and magnesium along with other labs as mentioned. Total time taken is greater than 35 minutes. Hospital course This is a 72-year-old male who was recently admitted with abdominal pain found to have colon Mass in the sigmoid underwent lower anterior resection. Patient had some postop complications including a leak requiring emergent surgery for repair and also end colostomy. Patient has had prolonged hospitalization with significant weakness and cultures growing enterococcus E. coli and has received a PICC line and will be going on antibiotics per ID recommendations for another 2 weeks. Patient has been accepted at [facility]. Patient does have history of anemia and was given a unit of PRBCs yesterday and hemoglobin is 9.5. Blood sugars being monitored and would recommend close monitoring of Accu-Cheks before meals and at bedtime and patient is considered on continued on regular diet. Would continue with Glucerna supplements 3 times a day with meals. Patient will need outpatient follow-up with surgery along with nephrology as well as infectious disease. Patient was having some retention with difficulties urinating requiring an indwelling Bo catheter was evaluated by urology and would recommending continue with indwelling Bo catheter and trial of voiding once more mobile. Please refer to other consultation notes for further HPI. Currently no reports of chest pain, shortness of breath, or palpitations. Patient is afebrile. No reports of nausea or vomiting and patient is tolerating diet. Patient will be going to [facility] today. Guarded prognosis Physical exam: Gen: This is a 72-year-old male who is awake, alert and oriented 2, well- developed, well-nourished, obese HEENT: Head is atraumatic, normocephalic. Pupils equal, round. Sclerae is anicteric. NECK: Supple. No JVD. No lymphadenopathy. No thyromegaly. LUNGS: Diminished breath sounds bilaterally with no wheezes or rhonchi. No intercostal retractions. HEART: S1, S2 are muffled ABDOMEN: Soft. Bowel sounds are present. No masses. No tenderness. Ostomy is functioning EXTREMITIES: No pedal edema. No calf tenderness. NEUROLOGICAL: Patient is awake, alert and oriented x2. Cranial nerves 2 through 12 are grossly intact. Diffusely weak Please refer to medication reconciliation sheet for a list of medications. The impression and plan of care has been dictated by Erinn Story, Nurse Practitioner as directed. Dr. Cresencio MD I have performed a history and examination and MDM of this patient, discussed the same with the dictator, and agree with the dictator's assessment and plan as written ,documented as a scribe. Based on total visit time, I have performed more than 50% of the visit. Patient Condition at Discharge: Fair Plan - Discharge Summary Discharge Rx Participant: Yes New Discharge Prescriptions: New Ipratropium Nebulized [Atrovent Nebulized 0.2 MG/ML] 0.5 mg INHALATION RT-Q2H PRN ml PRN Reason: Shortness Of Breath Or Wheezing Torsemide [Demadex] 20 mg PO DAILY tab Tamsulosin [Flomax] 0.4 mg PO PC-BRKFST cap Insulin Detemir (Levemir) [Levemir] 30 unit SQ BID@0700,2100 each Metoprolol Tartrate [Lopressor] 25 mg PO BID tab HYDROcodone/APAP 5-325MG [Idalia 5-325] 1 each PO Q6H PRN #4 tab PRN Reason: Moderate Pain (Scale 4 To 6) INSULIN ASPART (NovoLOG) [NovoLOG (formulary)] 0 unit SQ Q6H each Acetaminophen Tab [Tylenol] 1,000 mg PO Q6HR PRN tab PRN Reason: Fever And/ Or Pain Albuterol Nebulized [Ventolin Nebulized] 2.5 mg INHALATION RT-Q2H PRN ml PRN Reason: Shortness Of Breath Or Wheezing Meropenem [Merrem] 1 gm IVPB Q8H #42 each Ipratropium Nebulized [Atrovent Nebulized 0.2 MG/ML] 0.5 mg INHALATION RT-QID ml Benzocaine/Menthol Lozeng [Cepacol lozenge] 1 each MUCOUS MEM Q1HR PRN lozenge PRN Reason: Sore Throat Heparin Sodium,Porcine [Heparin Sodium] 5,000 unit SQ Q12HR #60 each Melatonin 3 mg PO HS tab Simethicone 40 mg/0.6 ml Drops [Mylicon Drops] 40 mg PO QID ml Midodrine [ProAmatine] 5 mg PO AC-TID tab Albuterol Nebulized [Ventolin Nebulized] 2.5 mg INHALATION RT-QID ml Potassium Chloride [K-Tab ER] 20 meq PO DAILY #30 tab Continue Nitroglycerin Sl Tabs [Nitrostat] 0.4 mg SL Q5M PRN PRN Reason: Chest Pain Fluticasone Propion/Salmeterol [Advair 100-50 Diskus] 1 puff INHALATION RT- BID PRN PRN Reason: Shortness Of Breath Omeprazole [PriLOSEC] 20 mg PO DAILY Rosuvastatin [Crestor] 20 mg PO DAILY Aspirin EC [Ecotrin Low Dose] 81 mg PO DAILY Discontinued atenoloL [Tenormin] 50 mg PO HS Isosorbide Mononitrate ER [Imdur] 30 mg PO BID-W/MEALS Clopidogrel [Plavix] 75 mg PO DAILY ALPRAZolam [Xanax] 0.25 mg PO HS Empagliflozin [Jardiance] 25 mg PO DAILY metFORMIN HCL [Glucophage] 1,000 mg PO BID-W/MEALS glipiZIDE [Glucotrol] 5 mg PO BID-W/MEALS Discharge Medication List Nitroglycerin Sl Tabs [Nitrostat] 0.4 mg SL Q5M PRN 09/22/13 [History] Fluticasone Propion/Salmeterol [Advair 100-50 Diskus] 1 puff INHALATION RT-BID PRN 11/26/21 [History] Rosuvastatin [Crestor] 20 mg PO DAILY 11/26/21 [History] Omeprazole [PriLOSEC] 20 mg PO DAILY 01/21/22 [History] Aspirin EC [Ecotrin Low Dose] 81 mg PO DAILY 04/09/22 [History] Acetaminophen Tab [Tylenol] 1,000 mg PO Q6HR PRN tab 04/30/22 [Rx] Albuterol Nebulized [Ventolin Nebulized] 2.5 mg INHALATION RT-Q2H PRN ml 04/30/22 [Rx] Albuterol Nebulized [Ventolin Nebulized] 2.5 mg INHALATION RT-QID ml 04/30/22 [Rx] Benzocaine/Menthol Lozeng [Cepacol lozenge] 1 each MUCOUS MEM Q1HR PRN lozenge 04/30/22 [Rx] HYDROcodone/APAP 5-325MG [Idalia 5-325] 1 each PO Q6H PRN #4 tab 04/30/22 [Rx] Heparin Sodium,Porcine [Heparin Sodium] 5,000 unit SQ Q12HR #60 each 04/30/22 [Rx] INSULIN ASPART (NovoLOG) [NovoLOG (formulary)] 0 unit SQ Q6H each 04/30/22 [Rx] Insulin Detemir (Levemir) [Levemir] 30 unit SQ BID@0700,2100 each 04/30/22 [Rx] Ipratropium Nebulized [Atrovent Nebulized 0.2 MG/ML] 0.5 mg INHALATION RT-Q2H PRN ml 04/30/22 [Rx] Ipratropium Nebulized [Atrovent Nebulized 0.2 MG/ML] 0.5 mg INHALATION RT-QID ml 04/30/22 [Rx] Melatonin 3 mg PO HS tab 04/30/22 [Rx] Meropenem [Merrem] 1 gm IVPB Q8H #42 each 04/30/22 [Rx] Metoprolol Tartrate [Lopressor] 25 mg PO BID tab 04/30/22 [Rx] Midodrine [ProAmatine] 5 mg PO AC-TID tab 04/30/22 [Rx] Potassium Chloride [K-Tab ER] 20 meq PO DAILY #30 tab 04/30/22 [Rx] Simethicone 40 mg/0.6 ml Drops [Mylicon Drops] 40 mg PO QID ml 04/30/22 [Rx] Tamsulosin [Flomax] 0.4 mg PO PC-BRKFST cap 04/30/22 [Rx] Torsemide [Demadex] 20 mg PO DAILY tab 04/30/22 [Rx] Follow up Appointment(s)/Referral(s): Ed Ferro MD [Primary Care Provider] - 1-2 days Casie Bardales MD [STAFF PHYSICIAN] - 2 Weeks Ambulatory/Diagnostic Orders: Basic Metabolic Panel [LAB.AMB] Location: None Selected C Reactive Protein [LAB.AMB] Location: None Selected Complete Blood Count w/diff [LAB.AMB] Location: None Selected Activity/Diet/Wound Care/Special Instructions: Patient is going to [facility] bed Activity as tolerated Continue with PICC line and IV antibiotics per ID recommendations Continue local wound care Continue current diet and slowly advance as tolerated Recommend repeat labs of CBC, BMP, magnesium in 2-3 days Recommend monitor Accu-Cheks before meals and at bedtime and continue sliding scale and long-acting insulin NovoLog sliding scale 0-150 equals 0 units 151-200 equals 2 units 201-250 equals 4 units 251-300 equals 6 units 301-350 equals 8 units 351-400 equals 10 units Please notify provider if blood sugar is 400 or above [facility] #[id number] Discharge Disposition: TRANSFER TO SNF/ECF
--- NOTE | 2022-05-02 13:10 | P.PN ---
Subjective Progress Note Date: 05/02/22 CHIEF COMPLAINT: Colon mass HISTORY OF PRESENT ILLNESS: Patient had lower anterior resection for sigmoid colon mass on 04/13/2022. He developed anastomotic leak and is status post exploratory laparotomy, washout of abdomen takedown of anastomosis and colostomy in the left upper quadrant for anastomotic leak secondary to ischemic colon on 04/17/22. Patient's ostomy is functioning. Patient is tolerating diet. He received IV Lasix for fluid overload. Patient still remains confused. Afebrile. WBC is 6.57 Hgb 9.5 platelets 374 sodium 141 potassium 4.0 creatinine 1.3 computed tomography scan of the brain ordered for continued altered mental status. Report states age-related atrophic and chronic small vessel ischemic changes without acute intracranial process seen at this time. Patient seen and examined with Dr. Carrera PHYSICAL EXAM: VITAL SIGNS: Reviewed. GENERAL: Well-developed in no acute distress. HEENT: No sclera icterus. Extraocular movements grossly intact. Moist buccal mucosa. Head is atraumatic, normocephalic. ABDOMEN: Soft. Wound VAC in place Colostomy with stool present. NEUROLOGIC: confused ASSESSMENT: 1. Colon cancer status post lower anterior resection 2. Anastomotic leak secondary to ischemic colon status post exploratory laparotomy, abdominal washout and colostomy placement 3. Anemia 4. History of coronary disease with stents placed in February 2022 with prior CABG 5. Intra-abdominal sepsis 6. Peritonitis PLAN: -Patient can be discharged from surgical standpoint when medically cleared -Bo catheter to be discontinued by medicine service -Discharge antibiotics per infectious disease -Continue regular diet -Continue wound VAC Physician Hat Liner note has been reviewed by physician. Signing provider agrees with the documented findings, assessment, and plan of care. Objective - Vital Signs Vital signs: Vital Signs Temp 98.3 F 05/02/22 11:57 Pulse 87 05/02/22 11:57 Resp 18 05/02/22 11:57 BP 109/65 05/02/22 11:57 Pulse Ox 98 05/02/22 11:57 FiO2 2 04/25/22 11:45 Intake & Output 05/01/22 05/02/22 05/02/22 18:59 06:59 18:59 Intake Total 310 Output Total 3300 1800 776 Balance -4798 -9367 -588 Intake: Blood Product 310 Rc As-1 Unit 310 [id number] Output: Urine 3000 1800 475 Stool 300 300 Other: Voiding Method Indwelling Catheter Indwelling Catheter Indwelling Catheter ABP, PAP, CO, CI - Last Documented Arterial Blood Pressure 126/50 - Labs CBC & Chem 7: 05/02/22 07:00 05/02/22 07:00 Labs: Abnormal Lab Results - Last 24 Hours (Table) 05/01/22 05/01/22 05/01/22 Range/Units 11:48 17:21 20:12 RBC (4.40-5.60) X 10*6/uL Hgb (13.0-17.0) g/dL Hct (39.6-50.0) % MCH (27.0-32.0) pg MCHC (32.0-37.0) g/dL RDW (11.5-14.5) % Immature Gran # (0.00-0.04) X 10*3/uL Lymphocytes # (0.90-5.00) X 10*3/uL Eosinophils # (0.04-0.35) X 10*3/uL Carbon Dioxide (20.0-27.5) mmol/L Est GFR (CKD-EPI)NonAf (60.0-200.0) Glucose (70-110) mg/dL POC Glucose (mg/dL) 141 H 190 H (70-110) mg/dL Crossmatch See Detail 05/02/22 05/02/22 05/02/22 Range/Units 04:55 04:59 06:41 RBC (4.40-5.60) X 10*6/uL Hgb (13.0-17.0) g/dL Hct (39.6-50.0) % MCH (27.0-32.0) pg MCHC (32.0-37.0) g/dL RDW (11.5-14.5) % Immature Gran # (0.00-0.04) X 10*3/uL Lymphocytes # (0.90-5.00) X 10*3/uL Eosinophils # (0.04-0.35) X 10*3/uL Carbon Dioxide (20.0-27.5) mmol/L Est GFR (CKD-EPI)NonAf (60.0-200.0) Glucose (70-110) mg/dL POC Glucose (mg/dL) 42 L 259 H 127 H (70-110) mg/dL Crossmatch 05/02/22 05/02/22 05/02/22 Range/Units 07:00 07:00 07:11 RBC 3.77 L (4.40-5.60) X 10*6/uL Hgb 9.5 L (13.0-17.0) g/dL Hct 33.4 L (39.6-50.0) % MCH 25.2 L (27.0-32.0) pg MCHC 28.4 L (32.0-37.0) g/dL RDW 20.8 H (11.5-14.5) % Immature Gran # 0.08 H (0.00-0.04) X 10*3/uL Lymphocytes # 0.57 L (0.90-5.00) X 10*3/uL Eosinophils # 0.01 L (0.04-0.35) X 10*3/uL Carbon Dioxide 31.7 H (20.0-27.5) mmol/L Est GFR (CKD-EPI)NonAf 53.0 L (60.0-200.0) Glucose 142 H (70-110) mg/dL POC Glucose (mg/dL) 118 H (70-110) mg/dL Crossmatch 05/02/22 Range/Units 11:04 RBC (4.40-5.60) X 10*6/uL Hgb (13.0-17.0) g/dL Hct (39.6-50.0) % MCH (27.0-32.0) pg MCHC (32.0-37.0) g/dL RDW (11.5-14.5) % Immature Gran # (0.00-0.04) X 10*3/uL Lymphocytes # (0.90-5.00) X 10*3/uL Eosinophils # (0.04-0.35) X 10*3/uL Carbon Dioxide (20.0-27.5) mmol/L Est GFR (CKD-EPI)NonAf (60.0-200.0) Glucose (70-110) mg/dL POC Glucose (mg/dL) 148 H (70-110) mg/dL Crossmatch
--- NOTE | 2022-05-02 14:50 | P.PN ---
Subjective Progress Note Date: 05/01/22 Principal diagnosis: Intra-abdominal infection Patient is a 72 year old male presented to the hospital with symptomatic anemia did have low anterior resection subsequently did have a anastomosis leak on 04/17/2022 with laparotomy and resection of ischemic portion abdominal culture were disregarded by micro-lab as possible contamination, subsequently did have a fever and more purulent drainage from abdominal incision that prompted with diarrhea infectious disease consultation On today's evaluation that is 05/01/2022, the patient continues to be afebrile, the patient is breathing comfortably on 2 L nasal cannula oxygen, the patient is slightly restless today not available good historian no vomiting or any other changes reported by the nursing staff Objective - Vital Signs Vital signs: Vital Signs Temp 98.3 F 05/01/22 13:33 Pulse 90 05/01/22 13:33 Resp 20 05/01/22 13:33 BP 136/80 05/01/22 13:33 Pulse Ox 98 05/01/22 13:33 FiO2 2 04/25/22 11:45 Intake & Output 04/30/22 05/01/22 05/01/22 18:59 06:59 18:59 Intake Total 240 200 0 Output Total 1900 1800 300 Balance -1660 -1600 -300 Weight 103.1 kg Intake: Intake, IV Titration 200 Amount Meropenem 1 gm In Sodium 200 Chloride 0.9% 100 ml @ 33 .3 mls/hr IVPB Q8H [facility] Rx #:[id number] Oral 240 Blood Product 0 Rc As-1 Unit 0 [id number] Output: Urine 1100 1200 Stool 800 600 300 Other: Voiding Method Indwelling Catheter Indwelling Catheter Indwelling Catheter ABP, PAP, CO, CI - Last Documented Arterial Blood Pressure 126/50 - Exam GENERAL DESCRIPTION: An elderly male lying in bed in no distress RESPIRATORY SYSTEM: Unlabored breathing , decreased breath sounds at bases HEART: S1 S2 regular rate and rhythm , ABDOMEN: Soft , no tenderness, abdominal incision is currently dressed EXTREMITIES: No edema feet Patient did have stage II sacral pressure ulcer , no cellulitis - Labs CBC & Chem 7: 05/02/22 07:00 05/02/22 07:00 Labs: Abnormal Lab Results - Last 24 Hours (Table) 04/30/22 05/01/22 05/01/22 Range/Units 20:45 06:50 06:50 RBC 3.19 L (4.40-5.60) X 10*6/uL Hgb 7.9 L (13.0-17.0) g/dL Hct 27.7 L (39.6-50.0) % MCH 24.8 L (27.0-32.0) pg MCHC 28.5 L (32.0-37.0) g/dL RDW 22.1 H (11.5-14.5) % Immature Gran # 0.08 H (0.00-0.04) X 10*3/uL Lymphocytes # 0.82 L (0.90-5.00) X 10*3/uL Eosinophils # 0.03 L (0.04-0.35) X 10*3/uL Carbon Dioxide 29.2 H (20.0-27.5) mmol/L Anion Gap 9.80 L (10.00-18.00) mmol/L POC Glucose (mg/dL) 135 H (70-110) mg/dL Calcium 8.2 L (8.7-10.3) mg/dL Crossmatch 05/01/22 05/01/22 Range/Units 11:31 11:48 RBC (4.40-5.60) X 10*6/uL Hgb (13.0-17.0) g/dL Hct (39.6-50.0) % MCH (27.0-32.0) pg MCHC (32.0-37.0) g/dL RDW (11.5-14.5) % Immature Gran # (0.00-0.04) X 10*3/uL Lymphocytes # (0.90-5.00) X 10*3/uL Eosinophils # (0.04-0.35) X 10*3/uL Carbon Dioxide (20.0-27.5) mmol/L Anion Gap (10.00-18.00) mmol/L POC Glucose (mg/dL) 116 H (70-110) mg/dL Calcium (8.7-10.3) mg/dL Crossmatch See Detail Assessment and Plan (1) Abdominal wall abscess Status: Acute Code(s): L02.211 - CUTANEOUS ABSCESS OF ABDOMINAL WALL SNOMED Code(s): 53519337 Plan: 1patient with admission to the hospital with symptomatic anemia patient was 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 coli and anaerobes and enterococcus 2the patient fever seemed to have resolved and the white count has normalized 3-patient to continue with meropenem 2 weeks on discharge on the basis of the culture, and a close outpatient follow-up , currently waiting for outpatient IV antibiotic arrangement and placement Time with Patient: Less than 30
--- NOTE | 2022-05-02 14:52 | P.PN ---
Subjective Progress Note Date: 05/02/22 Principal diagnosis: Intra-abdominal infection Patient is a 72 year old male presented to the hospital with symptomatic anemia did have low anterior resection subsequently did have a anastomosis leak on 04/17/2022 with laparotomy and resection of ischemic portion abdominal culture were disregarded by micro-lab as possible contamination, subsequently did have a fever and more purulent drainage from abdominal incision that prompted with diarrhea infectious disease consultation On today's evaluation that is 05/02/2022, the patient remains to be afebrile, the patient is breathing comfortably on 3 L nasal cannula oxygen, the patient is more awake and alert today is breathing comfortably denies any chest pain shortness of breath occasional cough abdominal pain is controlled wound is covered with a wound VAC with good suction Objective - Vital Signs Vital signs: Vital Signs Temp 98.3 F 05/02/22 11:57 Pulse 87 05/02/22 11:57 Resp 18 05/02/22 11:57 BP 109/65 05/02/22 11:57 Pulse Ox 98 05/02/22 11:57 FiO2 2 04/25/22 11:45 Intake & Output 05/01/22 05/02/22 05/02/22 18:59 06:59 18:59 Intake Total 310 Output Total 3300 1800 775 Balance -6363 -1800 771 Intake: Blood Product 310 Rc As-1 Unit 310 [id number] Output: Urine 3000 1800 475 Stool 300 300 Other: Voiding Method Indwelling Catheter Indwelling Catheter Indwelling Catheter ABP, PAP, CO, CI - Last Documented Arterial Blood Pressure 126/50 - Exam GENERAL DESCRIPTION: An elderly male up in the chair in no distress RESPIRATORY SYSTEM: Unlabored breathing , decreased breath sounds at bases HEART: S1 S2 regular rate and rhythm , ABDOMEN: Soft , no tenderness, abdominal incision is currently covered with a wound VAC EXTREMITIES: No edema feet - Labs CBC & Chem 7: 05/02/22 07:00 05/02/22 07:00 Labs: Abnormal Lab Results - Last 24 Hours (Table) 05/01/22 05/01/22 05/01/22 Range/Units 11:48 17:21 20:12 RBC (4.40-5.60) X 10*6/uL Hgb (13.0-17.0) g/dL Hct (39.6-50.0) % MCH (27.0-32.0) pg MCHC (32.0-37.0) g/dL RDW (11.5-14.5) % Immature Gran # (0.00-0.04) X 10*3/uL Lymphocytes # (0.90-5.00) X 10*3/uL Eosinophils # (0.04-0.35) X 10*3/uL Carbon Dioxide (20.0-27.5) mmol/L Est GFR (CKD-EPI)NonAf (60.0-200.0) Glucose (70-110) mg/dL POC Glucose (mg/dL) 141 H 190 H (70-110) mg/dL Crossmatch See Detail 05/02/22 05/02/22 05/02/22 Range/Units 04:55 04:59 06:41 RBC (4.40-5.60) X 10*6/uL Hgb (13.0-17.0) g/dL Hct (39.6-50.0) % MCH (27.0-32.0) pg MCHC (32.0-37.0) g/dL RDW (11.5-14.5) % Immature Gran # (0.00-0.04) X 10*3/uL Lymphocytes # (0.90-5.00) X 10*3/uL Eosinophils # (0.04-0.35) X 10*3/uL Carbon Dioxide (20.0-27.5) mmol/L Est GFR (CKD-EPI)NonAf (60.0-200.0) Glucose (70-110) mg/dL POC Glucose (mg/dL) 42 L 259 H 127 H (70-110) mg/dL Crossmatch 05/02/22 05/02/22 05/02/22 Range/Units 07:00 07:00 07:11 RBC 3.77 L (4.40-5.60) X 10*6/uL Hgb 9.5 L (13.0-17.0) g/dL Hct 33.4 L (39.6-50.0) % MCH 25.2 L (27.0-32.0) pg MCHC 28.4 L (32.0-37.0) g/dL RDW 20.8 H (11.5-14.5) % Immature Gran # 0.08 H (0.00-0.04) X 10*3/uL Lymphocytes # 0.57 L (0.90-5.00) X 10*3/uL Eosinophils # 0.01 L (0.04-0.35) X 10*3/uL Carbon Dioxide 31.7 H (20.0-27.5) mmol/L Est GFR (CKD-EPI)NonAf 53.0 L (60.0-200.0) Glucose 142 H (70-110) mg/dL POC Glucose (mg/dL) 118 H (70-110) mg/dL Crossmatch 05/02/22 Range/Units 11:04 RBC (4.40-5.60) X 10*6/uL Hgb (13.0-17.0) g/dL Hct (39.6-50.0) % MCH (27.0-32.0) pg MCHC (32.0-37.0) g/dL RDW (11.5-14.5) % Immature Gran # (0.00-0.04) X 10*3/uL Lymphocytes # (0.90-5.00) X 10*3/uL Eosinophils # (0.04-0.35) X 10*3/uL Carbon Dioxide (20.0-27.5) mmol/L Est GFR (CKD-EPI)NonAf (60.0-200.0) Glucose (70-110) mg/dL POC Glucose (mg/dL) 148 H (70-110) mg/dL Crossmatch Assessment and Plan (1) Abdominal wall abscess Status: Acute Code(s): L02.211 - CUTANEOUS ABSCESS OF ABDOMINAL WALL SNOMED Code(s): 46247101 Plan: 1patient with admission to the hospital with symptomatic anemia patient was not iced to have circumferential colon tumor in this patient who is status post low anterior resection with a clinical course complicated by ischemia of the anastomosis site and leak leading to secondary peritonitis abdominal culture did grew 3 different gram-negative and Enterococcus unfortunately those were not worked up further by the micro lab considering them to be contamination as the patient is spiking fever source and likely secondary to secondary peritonitis abdominal cultures did grew multidrug resistant Enterobacter E. coli and anaerobes and enterococcus 2the patient fever seemed to have resolved and the white count has normalized 3-patient seemed to have shown clinical response to meropenem which of the continued 2 weeks on discharge and a close outpatient follow-up , local wound care to continue with the wound vac per surgery Time with Patient: Less than 30
--- NOTE | 2022-05-05 12:13 | CDI ---
Documentation Clarification Form Date: 05/05/22 From: Breanna Benitez Admit Date: 04/09/2022 8:32:00 PM Patient Name: Christ Resendiz Visit Number: [id number] Discharge Date: 05/02/2022 2:45:00 PM ATTENTION: The Clinical Documentation Specialists (CDI) and [facility] Coding Staff appreciate your assistance in clarifying documentation. Please respond to the clarification below the line at the bottom and electronically sign. The CDI & [facility] Coding staff will review the response and follow-up if needed. Please note: Queries are made part of the Legal Health Record. If you have any questions, please contact the author of this message via ITS. Dr. Ad Dupont, Malnutrition is documented in the 04/27 progress note. Additional clarification regarding the severity of malnutrition is requested. History/Risk Factors: Sigmoid cancer, acute hypoxic respiratory failure, ischemia of large intestine, ATN, intra-abdominal abscess with postop septic shock, peritonitis, VT, ABLA, disruption of intestinal anastomosis, T2DM w CKD Stage III, pressure ulcer of coccyx Stage 2 Clinical Indicators: Stage II pressure ulcer on coccyx, ostomy, wound infection Current BMI: 39.0 Insufficient energy intake: yes per RD RD Consult Assessment: Inadequate energy intake, Total Protein (04/11, 04/18-04/28): 705, 4.2, 4.1, 4.3, 4.7, 4.9, 4.8, 5.6, 5.4, 5.8, 5.8 Albumin (04/11, 04/18-04/28): 4.4, 2.2, 2.1, 2.0, 2.0, 2.2, 2.3, 2.3, 2.7, 2.6, 2.8, 2.8 Dietary Consult: Increase PO intake from 50% to 75%, controlled blood sugar Supplements: Glucerna TPN: Central line TPN Please clarify the type of malnutrition, if known: [ ] Mild Protein-Calorie Malnutrition [ x ] Moderate Protein-Calorie Malnutrition [ ] Severe Protein-Calorie Malnutrition [ ] Malnutrition, unspecified [ ] Malnutrition following GI surgery [ ] Other condition, please specify [ ] Unable to Determine MTDD
== END 2022-05-02 14:45 | disposition swing bed (61) | DRG 329 ==
LOC: EC 19:44 → 3SCARD 20:32 → 5NMEDONC 04-15 22:34 → 2SICU 04-17 18:31 → 5NMEDONC 04-25 00:43
PROVIDERS: ADMIT Hospitalist; ATTEND Hospitalist
PROC: 0DBN8ZX Excision of Sigmoid Colon, Via Natural or Artificial Opening Endoscopic, Diagnostic (ICD-10-PCS; 2022-04-11)
PROC: 0DJ08ZZ Inspection of Upper Intestinal Tract, Via Natural or Artificial Opening Endoscopic (ICD-10-PCS; 2022-04-11)
PROC: 0DTJ0ZZ Resection of Appendix, Open Approach (ICD-10-PCS; principal; 2022-04-13 10:00)
PROC: 0DBN0ZZ Excision of Sigmoid Colon, Open Approach (ICD-10-PCS; principal; 2022-04-13 10:00)
PROC: 0D1L0Z4 Bypass Transverse Colon to Cutaneous, Open Approach (ICD-10-PCS; 2022-04-17)
PROC: 3E1M38Z Irrigation of Peritoneal Cavity using Irrigating Substance, Percutaneous Approach (ICD-10-PCS; 2022-04-17)
PROC: 0D9670Z Drainage of Stomach with Drainage Device, Via Natural or Artificial Opening (ICD-10-PCS; 2022-04-17)
PROC: 5A1945Z Respiratory Ventilation, 24-96 Consecutive Hours (ICD-10-PCS; 2022-04-17)
PROC: 30243N1 Transfusion of Nonautologous Red Blood Cells into Central Vein, Percutaneous Approach (ICD-10-PCS; 2022-04-17)
PROC: 3E043XZ Introduction of Vasopressor into Central Vein, Percutaneous Approach (ICD-10-PCS; 2022-04-17)
PROC: 3E0436Z Introduction of Nutritional Substance into Central Vein, Percutaneous Approach (ICD-10-PCS; 2022-04-18)
PROC: 5A09357 Assistance with Respiratory Ventilation, Less than 24 Consecutive Hours, Continuous Positive Airway Pressure (ICD-10-PCS; 2022-04-21)
PROC: 02HV33Z Insertion of Infusion Device into Superior Vena Cava, Percutaneous Approach (ICD-10-PCS; 2022-04-29)
DX: C18.7 Malignant neoplasm of sigmoid colon (principal); J96.01 Acute respiratory failure with hypoxia; K55.049 Acute infarction of large intestine, extent unspecified; N17.0 Acute kidney failure with tubular necrosis; K65.1 Peritoneal abscess; K65.8 Other peritonitis; T81.12XA Postprocedural septic shock, initial encounter; K63.3 Ulcer of intestine; E44.0 Moderate protein-calorie malnutrition; I47.20 Ventricular tachycardia, unspecified; R18.8 Other ascites; D62 Acute posthemorrhagic anemia; N13.8 Other obstructive and reflux uropathy; K57.20 Diverticulitis of large intestine with perforation and abscess without bleeding; K92.1 Melena; K91.89 Other postprocedural complications and disorders of digestive system; T81.32XA Disruption of internal operation (surgical) wound, not elsewhere classified, initial encounter; T81.43XA Infection following a procedure, organ and space surgical site, initial encounter; E11.41 Type 2 diabetes mellitus with diabetic mononeuropathy; E11.649 Type 2 diabetes mellitus with hypoglycemia without coma; I27.20 Pulmonary hypertension, unspecified; L89.152 Pressure ulcer of sacral region, stage 2; E11.22 Type 2 diabetes mellitus with diabetic chronic kidney disease; N18.30 Chronic kidney disease, stage 3 unspecified; Z20.822 Contact with and (suspected) exposure to COVID-19; Z28.310 Unvaccinated for COVID-19; E77.8 Other disorders of glycoprotein metabolism; E11.65 Type 2 diabetes mellitus with hyperglycemia; E66.01 Morbid (severe) obesity due to excess calories; J44.9 Chronic obstructive pulmonary disease, unspecified; E83.51 Hypocalcemia; I12.9 Hypertensive chronic kidney disease with stage 1 through stage 4 chronic kidney disease, or unspecified chronic kidney disease; E87.70 Fluid overload, unspecified; B95.2 Enterococcus as the cause of diseases classified elsewhere; B96.20 Unspecified Escherichia coli [E. coli] as the cause of diseases classified elsewhere; G57.93 Unspecified mononeuropathy of bilateral lower limbs; N40.1 Benign prostatic hyperplasia with lower urinary tract symptoms; R33.8 Other retention of urine; N50.89 Other specified disorders of the male genital organs; K62.1 Rectal polyp; K44.9 Diaphragmatic hernia without obstruction or gangrene; E78.5 Hyperlipidemia, unspecified; I08.1 Rheumatic disorders of both mitral and tricuspid valves; E86.0 Dehydration; E87.6 Hypokalemia; E83.42 Hypomagnesemia; M19.90 Unspecified osteoarthritis, unspecified site; I25.10 Atherosclerotic heart disease of native coronary artery without angina pectoris; I25.2 Old myocardial infarction; Z68.39 Body mass index [BMI] 39.0-39.9, adult; H91.90 Unspecified hearing loss, unspecified ear; T50.2X5A Adverse effect of carbonic-anhydrase inhibitors, benzothiadiazides and other diuretics, initial encounter; Z79.82 Long term (current) use of aspirin; Z79.02 Long term (current) use of antithrombotics/antiplatelets; Z79.84 Long term (current) use of oral hypoglycemic drugs; Z79.51 Long term (current) use of inhaled steroids; Z79.899 Other long term (current) drug therapy; Z95.5 Presence of coronary angioplasty implant and graft; Z95.1 Presence of aortocoronary bypass graft; Z87.891 Personal history of nicotine dependence; Z71.3 Dietary counseling and surveillance; Y92.230 Patient room in hospital as the place of occurrence of the external cause
CPT/HCPCS: 36430; 36573; 43235; 45380; 45381; 45385; 70450; 71045; 71046; 74176; 76770; 80048; 80053; 80061; 81001; 82040; 82330; 82607; 82728; 82746; 82805; 83036; 83540; 83550; 83735; 84100; 84132; 84478; 84484; 85025; 85027; 86140; 86850; 86900; 86901; 86920; 87040; 87070; 87075; 87077; 87186; 87205; 87635; 88305; 88307; 88309; 93005; 93306; 94640; 94660; 94760; 99285

== ENCOUNTER 2022-10-05 03:40 | Inpatient (IN) | payer MEDICARE ==
--- NOTE | 2022-10-05 03:51 | ED ---
Recheck HPI - General Stated Complaint: Chest Pain Time Seen by Provider: 10/05/22 03:46 Source: RN notes reviewed, old records reviewed Limitations: no limitations - History of Present Illness Initial Comments: This is a 72-year-old male to the emergency department for evaluation. Patient presents today for evaluation regards to chest pain and abnormal EKG. Patient is transferred to us from [facility] patient is recently of inpatient hospitalization at another facility where he had a heart catheterization. Patient was seen in the ER today and transferred to us for cardiology to evaluate see. Patient has no current chest pain MD Complaint: other (Abnormal EKG) -: unknown Returns Today for: persistent/worsening pain related to initial visit, other (Transfer secondary to abnormal EKG) Symptoms Since Prior Visit: no new symptoms Context: called for abnormal lab result Associated Symptoms: none - Related Data Home Medications Medication Instructions Recorded Confirmed Fluticasone Propion/Salmeterol 1 puff INHALATION RT-BID PRN 11/26/21 10/05/22 [Advair 100-50 Diskus] Rosuvastatin [Crestor] 20 mg PO DAILY 11/26/21 10/05/22 Omeprazole [PriLOSEC] 20 mg PO DAILY 01/21/22 10/05/22 Aspirin EC [Ecotrin Low Dose] 81 mg PO DAILY 04/09/22 10/05/22 ALPRAZolam [Xanax] 0.5 mg PO TID PRN 10/05/22 10/05/22 Clopidogrel [Plavix] 75 mg PO DAILY 10/05/22 10/05/22 Magnesium Oxide [Mag-Ox] 250 mg PO W/BRKFST 10/05/22 10/05/22 Metoprolol Succinate (ER) [Toprol 50 mg PO DAILY 10/05/22 10/05/22 XL] Simethicone 40 mg/0.6 ml Drops 40 mg PO QID PRN 10/05/22 10/05/22 [Mylicon Drops] Tamsulosin [Flomax] 0.4 mg PO DAILY 10/05/22 10/05/22 glipiZIDE [Glucotrol] 5 mg PO AC-BID 10/05/22 10/05/22 metFORMIN HCL 1,000 mg PO BID 10/05/22 10/05/22 Previous Rx's Medication Instructions Recorded Acetaminophen Tab [Tylenol] 1,000 mg PO Q6HR PRN tab 04/30/22 Isosorbide Mononitrate ER [Imdur] 120 mg PO DAILY #30 tab 10/07/22 Nitroglycerin Sl Tabs [Nitrostat] 0.4 mg SL Q5M PRN #20 tab 10/07/22 Ranolazine [Ranexa] 1,000 mg PO Q12H #60 tab 10/07/22 Allergies Allergy/AdvReac Type Severity Reaction Status Date / Time pregabalin [From Lyrica] Allergy Severe Anaphylaxis Verified 10/05/22 10:40 gabapentin Allergy Swelling, Verified 10/05/22 10:40 rash, hives Review of Systems ROS Statement: Those systems with pertinent positive or pertinent negative responses have been documented in the HPI. ROS Other: All systems not noted in ROS Statement are negative. Past Medical History Past Medical History: Coronary Artery Disease (CAD), Chest Pain / Angina, COPD, Diabetes Mellitus, Eye Disorder, GI Bleed, Hearing Disorder / Deafness, Myocardial Infarction (NM), Osteoarthritis (OA) Additional Past Medical History / Comment(s): See Dr Everett's H&P. Recent Flu, resolved now. More frequent angina. PREVIOUS DETACHED RETINA. "Poor kidney function 11/30, better now." Hard of hearing. 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 Past Anesthesia/Blood Transfusion Reactions: No Reported Reaction Date of Last Stent Placement:: unknown Past Psychological History: No Psychological Hx Reported Smoking Status: Former smoker Past Alcohol Use History: Rare Past Drug Use History: None Reported - Past Family History Brother(s) Family Medical History: Cancer General Exam General appearance: alert, in no apparent distress, anxious Head exam: Present: atraumatic, normocephalic, normal inspection Eye exam: Present: normal appearance, PERRL, EOMI. Absent: scleral icterus, conjunctival injection, periorbital swelling ENT exam: Present: normal exam, mucous membranes moist Neck exam: Present: normal inspection. Absent: tenderness, meningismus, lymphadenopathy Respiratory exam: Present: normal lung sounds bilaterally. Absent: respiratory distress, wheezes, rales, rhonchi, stridor Cardiovascular Exam: Present: regular rate, normal rhythm, normal heart sounds. Absent: systolic murmur, diastolic murmur, rubs, gallop, clicks GI/Abdominal exam: Present: soft, normal bowel sounds. Absent: distended, tenderness, guarding, rebound, rigid Extremities exam: Present: normal inspection, full ROM, normal capillary refill. Absent: tenderness, pedal edema, joint swelling, calf tenderness Back exam: Present: normal inspection Neurological exam: Present: alert, oriented X3, CN II-XII intact Psychiatric exam: Present: normal affect, normal mood Skin exam: Present: warm, dry, intact, normal color. Absent: rash Course Vital Signs 10/05/22 10/05/22 10/05/22 03:51 08:00 11:24 Temperature 98 F Pulse Rate 63 69 71 Respiratory 18 18 19 Rate Blood Pressure 148/67 151/69 161/73 O2 Sat by Pulse 99 99 98 Oximetry 10/05/22 10/05/22 10/05/22 12:25 12:30 13:00 Temperature Pulse Rate 64 62 60 Respiratory 15 17 17 Rate Blood Pressure 153/67 149/73 143/67 O2 Sat by Pulse 99 99 95 Oximetry 10/05/22 10/05/22 10/05/22 13:20 14:10 15:00 Temperature Pulse Rate 66 60 57 L Respiratory 17 18 18 Rate Blood Pressure 143/67 141/66 138/64 O2 Sat by Pulse 95 96 95 Oximetry 10/05/22 10/05/22 10/05/22 15:10 16:00 16:20 Temperature Pulse Rate 57 L 70 67 Respiratory 17 18 17 Rate Blood Pressure 138/64 145/76 O2 Sat by Pulse 95 97 97 Oximetry 10/05/22 10/05/22 16:40 17:58 Temperature Pulse Rate 68 60 Respiratory 18 18 Rate Blood Pressure 137/70 158/63 O2 Sat by Pulse 98 95 Oximetry - Reevaluation(s) Reevaluation #1: 10/05/22 03:57 medical record is reviewed Transfer paperwork is been reviewed Reevaluation #2: 10/05/22 03:57 Patient informed results and questions answered Reevaluation #3: 10/05/22 03:57 Patient informed results and questions answered Reevaluation #4: 10/05/22 03:50 Was pt. sent in by a medical professional or institution (MELANIE Guzmán, BAND DIRECTOR, urgent c are, hospital, or jail...) When possible be specific @ -no Did you speak to anyone other than the patient for history (EMS, parent, family, police, friend...)? What history was obtained from this source @ -no Did you review nursing and triage notes (agree or disagree)? Why? @ -agree Are old charts reviewed (outside hosp., previous admission, EMS record, old EKG, old radiological studies, urgent care reports/EKG's, jail records)? Report findings @ -yes Differential Diagnosis (chest pain, altered mental status, abdominal pain women, abdominal pain men, vaginal bleeding, weakness, fever, dyspnea, syncope, headache, dizziness, GI bleed, back pain, seizure, CVA, palpatations, mental health, musculoskeletal)? @ -prior EKG interpreted by me (3pts min.). @ -yes X-rays interpreted by me (1pt min.). @ -yes CT interpreted by me (1pt min.). @ -no U/S interpreted by me (1pt. min.). @ -no What testing was considered but not performed or refused? (CT, X-rays, U/S, labs)? Why? @ -none What meds were considered but not given or refused? Why? @ -none Did you discuss the management of the patient with other professionals (professionals i.e. MELANIE Guzmán, BAND DIRECTOR, lab, RT, psych nurse, psychiatric social worker supervisor, rippler, teacher, code enforcement officer, keycase assembler)? Give summary @ -no Was smoking cessation discussed for >3mins.? @ -no Was critical care preformed (if so, how long)? @ -yes31 Were there social determinants of health that impacted care today? How? (Homelessness, low income, unemployed, alcoholism, drug addiction, transportation, low edu. Level, literacy, decrease access to med. care, correction, rehab)? @ -none Was there de-escalation of care discussed even if they declined (Discuss DNR or withdrawal of care, Hospice)? DNR status @ -no What co-morbidities impacted this encounter? (DM, HTN, Smoking, COPD, CAD, Cancer, CVA, ARF, Chemo, Hep., AIDS, mental health diagnosis, sleep apnea, morbid obesity)? @ -none Was patient admitted / discharged? Hospital course, mention meds given and route, prescriptions, significant lab abnormalities, going to OR and other pertinent info. @ - 72 male transferred for a for acute coronary syndrome and cardiology evaluation. Patient has depression lateral leads likely AVR ST elevation, patient will be admitted for cardiology evaluation and treatment. Troponin is negative. Recent heart catheterization Admitted Undiagnosed new problem with uncertain prognosis? @ -no Drug Therapy requiring intensive monitoring for toxicity (Heparin, Nitro, Insulin, Cardizem)? @ -no Were any procedures done? @ -no Diagnosis/symptom? @ -Chest pain, ACS Acute, or Chronic, or Acute on Chronic? @ -Acute Uncomplicated (without systemic symptoms) or Complicated (systemic symptoms)? @ -Complicated Side effects of treatment? @ -no Exacerbation, Progression, or Severe Exacerbation? @ -exacerbation Poses a threat to life or bodily function? How? (Chest pain, USA, NM, pneumonia, PE, COPD, DKA, ARF, appy, cholecystitis, CVA, Diverticulitis, Homicidal, Suicidal, threat to staff... and all critical care pts) @ -yes with acute coronary syndrome Reevaluation #5: 10/05/22 03:50 Differential Chest Pain: Stable Angina, Unstable Angina, STEMI, NSTEMI Aortic Dissection, Pneumothorax, Musculoskeletal, Esophageal Spasm GERD, Cholecystitis, Pancreatitis, Zoster, this is not meant to be an all-inclusive list. - Consultations Consultation #1: Spoke with sound who agrees to admit this patient Medical Decision Making - Medical Decision Making 72 male transferred for a for acute coronary syndrome and cardiology evaluation. Patient has depression lateral leads likely AVR ST elevation, patient will be admitted for cardiology evaluation and treatment. Troponin is negative. Recent heart catheterization - Lab Data Result diagrams: 10/06/22 11:50 10/07/22 08:15 Lab Results 10/05/22 10/05/22 10/05/22 Range/Units 04:00 04:00 04:00 WBC 7.2 (3.8-10.6) k/uL RBC 3.68 L (4.30-5.90) m/uL Hgb 11.1 L (13.0-17.5) gm/dL Hct 33.8 L (39.0-53.0) % MCV 91.9 (80.0-100.0) fL MCH 30.1 (25.0-35.0) pg MCHC 32.8 (31.0-37.0) g/dL RDW 13.4 (11.5-15.5) % Plt Count 161 (150-450) k/uL MPV 8.8 Neutrophils % 63 % Lymphocytes % 22 % Monocytes % 7 % Eosinophils % 6 % Basophils % 0 % Neutrophils # 4.6 (1.3-7.7) k/uL Lymphocytes # 1.6 (1.0-4.8) k/uL Monocytes # 0.5 (0-1.0) k/uL Eosinophils # 0.4 (0-0.7) k/uL Basophils # 0.0 (0-0.2) k/uL PT 10.5 (9.0-12.0) sec INR 1.0 (<1.2) APTT 59.3 H (22.0-30.0) sec Sodium 139 (137-145) mmol/L Potassium 5.2 H (3.5-5.1) mmol/L Chloride 107 (98-107) mmol/L Carbon Dioxide 23 (22-30) mmol/L Anion Gap 9 mmol/L BUN 33 H (9-20) mg/dL Creatinine 1.71 H (0.66-1.25) mg/dL Est GFR (CKD-EPI)AfAm 45 (>60 ml/min/1.73 sqM) Est GFR (CKD-EPI)NonAf 39 (>60 ml/min/1.73 sqM) Glucose 134 H (74-99) mg/dL Calcium 9.3 (8.4-10.2) mg/dL Phosphorus 3.7 (2.5-4.5) mg/dL Magnesium 1.2 L (1.6-2.3) mg/dL Total Bilirubin 0.4 (0.2-1.3) mg/dL AST 23 (17-59) U/L ALT 19 (4-49) U/L Alkaline Phosphatase 46 (38-126) U/L Troponin I (0.000-0.034) ng/mL NT-Pro-B Natriuret Pep pg/mL Total Protein 6.9 (6.3-8.2) g/dL Albumin 4.0 (3.5-5.0) g/dL 10/05/22 10/05/22 Range/Units 04:00 04:00 WBC (3.8-10.6) k/uL RBC (4.30-5.90) m/uL Hgb (13.0-17.5) gm/dL Hct (39.0-53.0) % MCV (80.0-100.0) fL MCH (25.0-35.0) pg MCHC (31.0-37.0) g/dL RDW (11.5-15.5) % Plt Count (150-450) k/uL MPV Neutrophils % % Lymphocytes % % Monocytes % % Eosinophils % % Basophils % % Neutrophils # (1.3-7.7) k/uL Lymphocytes # (1.0-4.8) k/uL Monocytes # (0-1.0) k/uL Eosinophils # (0-0.7) k/uL Basophils # (0-0.2) k/uL PT (9.0-12.0) sec INR (<1.2) APTT (22.0-30.0) sec Sodium (137-145) mmol/L Potassium (3.5-5.1) mmol/L Chloride (98-107) mmol/L Carbon Dioxide (22-30) mmol/L Anion Gap mmol/L BUN (9-20) mg/dL Creatinine (0.66-1.25) mg/dL Est GFR (CKD-EPI)AfAm (>60 ml/min/1.73 sqM) Est GFR (CKD-EPI)NonAf (>60 ml/min/1.73 sqM) Glucose (74-99) mg/dL Calcium (8.4-10.2) mg/dL Phosphorus (2.5-4.5) mg/dL Magnesium (1.6-2.3) mg/dL Total Bilirubin (0.2-1.3) mg/dL AST (17-59) U/L ALT (4-49) U/L Alkaline Phosphatase (38-126) U/L Troponin I 0.898 H* (0.000-0.034) ng/mL NT-Pro-B Natriuret Pep 4790 pg/mL Total Protein (6.3-8.2) g/dL Albumin (3.5-5.0) g/dL - EKG Data -: EKG Interpreted by Me (EKG is sinus bradycardia 58 [place] 174 QRS for 4 QTC 437) - Radiology Data Radiology results: report reviewed (Chest x-rays negative for acute disease) Critical Care Time Critical Care Time: Yes Total Critical Care Time: 31 Disposition Clinical Impression: Chest pain, S/P cardiac cath, Coronary artery disease, HTN (hypertension), S/P CABG x 3, Hx of CABG Disposition: ADMITTED IP TO THIS HOSP Condition: Serious Is patient prescribed a controlled substance at d/c from ED?: No Time of Disposition: 04:20
[2022-10-05 04:49] LABS: Basophils % (A) 0 %; Eosinophils # (A) 0.4 k/uL (0-0.7); Eosinophils % (A) 6 %; HCT 33.8 % (39.0-53.0); HGB 11.1 gm/dL (13.0-17.5); Lymphocytes # (A) 1.6 k/uL (1.0-4.8); Lymphocytes % (A) 22 %; MCH 30.1 pg (25.0-35.0); MCHC 32.8 g/dL (31.0-37.0); MCV 91.9 fL (80.0-100.0); Mean Platelet Volume 8.8; Monocytes # (A) 0.5 k/uL (0-1.0); Monocytes % (A) 7 %; Neutrophils # (A) 4.6 k/uL (1.3-7.7); Neutrophils % (A) 63 %; Platelet Count 161 k/uL (150-450); RBC 3.68 m/uL (4.30-5.90); RDW 13.4 % (11.5-15.5); WBC 7.2 k/uL (3.8-10.6)
[2022-10-05 04:50] LABS: Partial Thromboplastin Time 59.3 sec (22.0-30.0); Prothrombin Time 10.5 sec (9.0-12.0)
[2022-10-05 05:02] LABS: ALT 19 U/L (4-49); AST 23 U/L (17-59); African American GFR (CKD) 45 (>60 ml/min/1.73 sqM); Alkaline Phosphatase 46 U/L (38-126); Anion Gap 9 mmol/L; Blood Urea Nitrogen 33 mg/dL (9-20); Calcium 9.3 mg/dL (8.4-10.2); Carbon Dioxide 23 mmol/L (22-30); Chloride 107 mmol/L (98-107); Glucose 134 mg/dL (74-99); Magnesium 1.2 mg/dL (1.6-2.3); Non-African American GFR(CKD) 39 (>60 ml/min/1.73 sqM); Phosphorus 3.7 mg/dL (2.5-4.5); Potassium 5.2 mmol/L (3.5-5.1); Sodium 139 mmol/L (137-145); Total Bilirubin 0.4 mg/dL (0.2-1.3); Total Protein 6.9 g/dL (6.3-8.2)
[2022-10-05] MEDS ORDERED: NALOXONE 0.4 MG/ML 1 ML VIAL IV PRN (05:25)
[2022-10-05] MEDS ORDERED: HYDROmorphone 1 MG/ML 1 ML SYRINGE IVP PRN (05:25)
[2022-10-05] MEDS ORDERED: ONDANSETRON 4 MG/2 ML VIAL IVP PRN (05:25)
[2022-10-05] MEDS ORDERED: SODIUM CHLORIDE 0.9% 1,000 ML IV SCH (05:30)
[2022-10-05] MEDS ORDERED: HEPARIN SODIUM 1,000 UN/ML (10ML VL) IV PRN ×2 (08:28→10:18)
[2022-10-05] MEDS ORDERED: HEPARIN SODIUM 1,000 UN/ML (10ML VL) IV ONE (08:28)
[2022-10-05] MEDS ORDERED: HEPARIN SOD,PORK IN 0.45% NACL 25,000 UNIT in 0.45% NACL 1 250ML.BAG IV SCH ×2 (08:30→10:30)
[2022-10-05] MEDS ORDERED: METOPROLOL TARTRATE 25 MG TAB PO SCH (09:00)
[2022-10-05] MEDS: ATORVASTATIN 40 MG TAB PO SCH (11:21)
[2022-10-05] MEDS: ASPIRIN 81 MG PO SCH (11:21)
[2022-10-05] MEDS ORDERED: SIMETHICONE 40 MG/0.6 ML DROPS 2,000 MG/30 ML BOTTLE PO PRN (11:53)
[2022-10-05] MEDS ORDERED: ACETAMINOPHEN TAB 500 MG TAB PO PRN (11:53)
[2022-10-05] MEDS ORDERED: RANOLAZINE 500 MG TAB.ER.12H PO SCH ×2 (12:00→21:00)
[2022-10-05] MEDS ORDERED: ISOSORBIDE MONONITRATE ER 60 MG TAB.ER.24H PO SCH (12:00)
[2022-10-05] MEDS: METOPROLOL SUCCINATE (ER) 50 MG TAB.ER.24H PO SCH (12:07)
--- NOTE | 2022-10-05 12:07 | P.HPIM ---
History of Present Illness 71-year-old male with extensive cardiac history with a history of CABG multiple stents in the past with recent cardiac catheterization in the month of February at that time, patient had stenting to proximal obtuse marginal, distal segment of the saphenous venous graft to obtuse marginal and stenting of proximal segment of the saphenous venous graft to obtuse marginal with reduction of stenosis to 0%. Patient had normal ejection fraction the past may have diastolic dysfunction came in with complaints of chest pain similar to the chest pain went when he had heart attacks with elevated troponins of 0.898 and 1.010. Patient is on maximizing medical therapy with Ranexa, isosorbide mononitrate, beta taylor, statin and CRISTY inhibitor low dose. Patient baseline creatinine is around 1.2 went up to 1.7 patient blood pressure still high but the patient has renal dysfunction because of which CRISTY inhibitor is being held temporarily patient appears to be euvolemic received IV fluids chest x-ray is not available at this time. BNP is not available at this time. Patient denied any shortness of breath orthopnea or proximal nocturnal dyspnea patient just pain is episodic in nature. REVIEW OF SYSTEMS: CONSTITUTIONAL: No fever, no malaise, no fatigue. HEENT: No recent visual problems or hearing problems. Denied any sore throat. CARDIOVASCULAR: No orthopnea, PND, no palpitations, no syncope. PULMONARY: No shortness of breath, no cough, no hemoptysis. GASTROINTESTINAL: No diarrhea, no nausea, no vomiting, no abdominal pain. NEUROLOGICAL: No headaches, no weakness, no numbness. HEMATOLOGICAL: Denies any bleeding or petechiae. GENITOURINARY: Denies any burning micturition, frequency, or urgency. MUSCULOSKELETAL/RHEUMATOLOGICAL: Denies any joint pain, swelling, or any muscle pain. ENDOCRINE: Denies any polyuria or polydipsia. The rest of the 14-point review of systems is negative. PHYSICAL EXAMINATION: GENERAL: The patient is alert and oriented x3, not in any acute distress. Well developed, well nourished. HEENT: Pupils are round and equally reacting to light. EOMI. No scleral icterus. No conjunctival pallor. Normocephalic, atraumatic. No pharyngeal erythema. No thyromegaly. CARDIOVASCULAR: S1 and S2 present. No murmurs, rubs, or gallops. PULMONARY: Chest is clear to auscultation, no wheezing or crackles. ABDOMEN: Soft, nontender, nondistended, normoactive bowel sounds. No palpable organomegaly. MUSCULOSKELETAL: No joint swelling or deformity. EXTREMITIES: No cyanosis, clubbing, or pedal edema. NEUROLOGICAL: Gross neurological examination did not reveal any focal deficits. SKIN: No rashes. Assessment and plan -Possible acute non-ST elevation microinfarction: Patient will be resumed on his cardiac medications, patient on IV heparin cardiology will evaluate the patient echo cardiac and be obtained. -Severe coronary artery disease history: Patient patient was resumed on his home medications next Congestive heart failure chronic diastolic dysfunction without any acute exace rbation patient probably on the hypovolemic side although IV fluids are not needed IV fluids were discontinued will hold off on the diuretics and CRISTY inhibitor at this time -Hypomagnesemia reason I will replace -Hyperkalemia secondary to potassium supplementation and renal failure hold off on potassium supplements -Type 2 diabetes mellitus -COPD without any significant exacerbation patient is on Symbicort and breathing treatments which was resumed DVT prophylaxis: Patient is on IV heparin Past Medical History Past Medical History: Coronary Artery Disease (CAD), Chest Pain / Angina, COPD, Diabetes Mellitus, Eye Disorder, GI Bleed, Hearing Disorder / Deafness, Myocardial Infarction ([place]), Osteoarthritis (OA) Additional Past Medical History / Comment(s): See Dr Everett's H&P. Recent Flu, resolved now. More frequent angina. PREVIOUS DETACHED RETINA. "Poor kidney function 11/30, better now." Hard of hearing. 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 Past Anesthesia/Blood Transfusion Reactions: No Reported Reaction Date of Last Stent Placement:: unknown Past Psychological History: No Psychological Hx Reported Smoking Status: Former smoker Past Alcohol Use History: Rare Past Drug Use History: None Reported - Past Family History Brother(s) Family Medical History: Cancer Medications and Allergies Home Medications Medication Instructions Recorded Confirmed Type Nitroglycerin Sl Tabs [Nitrostat] 0.4 mg SL Q5M PRN 09/22/13 10/05/22 History Fluticasone Propion/Salmeterol 1 puff INHALATION RT-BID PRN 11/26/21 10/05/22 History [Advair 100-50 Diskus] Rosuvastatin [Crestor] 20 mg PO DAILY 11/26/21 10/05/22 History Omeprazole [PriLOSEC] 20 mg PO DAILY 01/21/22 10/05/22 History Aspirin EC [Ecotrin Low Dose] 81 mg PO DAILY 04/09/22 10/05/22 History Acetaminophen Tab [Tylenol] 1,000 mg PO Q6HR PRN tab 04/30/22 10/05/22 Rx Potassium Chloride [K-Tab ER] 20 meq PO DAILY #30 tab 04/30/22 10/05/22 Rx Torsemide [Demadex] 20 mg PO DAILY tab 04/30/22 10/05/22 Rx ALPRAZolam [Xanax] 0.5 mg PO TID PRN 10/05/22 10/05/22 History Clopidogrel [Plavix] 75 mg PO DAILY 10/05/22 10/05/22 History Isosorbide Mononitrate ER [Imdur] 60 mg PO BID 10/05/22 10/05/22 History Magnesium Oxide [Mag-Ox] 250 mg PO W/BRKFST 10/05/22 10/05/22 History Metoprolol Succinate (ER) [Toprol 50 mg PO DAILY 10/05/22 10/05/22 History Xl] Ranolazine [Ranexa] 500 mg PO BID 10/05/22 10/05/22 History Simethicone 40 mg/0.6 ml Drops 40 mg PO QID PRN 10/05/22 10/05/22 History [Mylicon Drops] Tamsulosin [Flomax] 0.4 mg PO DAILY 10/05/22 10/05/22 History glipiZIDE [Glucotrol] 5 mg PO AC-BID 10/05/22 10/05/22 History lisinopriL [Zestril] 2.5 mg PO DAILY 10/05/22 10/05/22 History metFORMIN HCL 1,000 mg PO BID 10/05/22 10/05/22 History Allergies Allergy/AdvReac Type Severity Reaction Status Date / Time pregabalin [From Lyrica] Allergy Severe Anaphylaxis Verified 10/05/22 10:40 gabapentin Allergy Swelling, Verified 10/05/22 10:40 rash, hives Physical Exam Vitals: Vital Signs Temp Pulse Resp BP Pulse Ox 10/05/22 11:24 71 19 161/73 98 10/05/22 08:00 69 18 151/69 99 10/05/22 03:51 98 F 63 18 148/67 99 Intake and Output 10/04/22 10/05/22 10/05/22 22:59 06:59 14:59 Other: Weight 69.853 kg Results CBC & Chem 7: 10/05/22 04:00 10/05/22 04:00 Labs: Abnormal Lab Results - Last 24 Hours (Table) 10/05/22 10/05/22 10/05/22 Range/Units 04:00 04:00 04:00 RBC 3.68 L (4.30-5.90) m/uL Hgb 11.1 L (13.0-17.5) gm/dL Hct 33.8 L (39.0-53.0) % APTT 59.3 H (22.0-30.0) sec Potassium 5.2 H (3.5-5.1) mmol/L BUN 33 H (9-20) mg/dL Creatinine 1.71 H (0.66-1.25) mg/dL Glucose 134 H (74-99) mg/dL Magnesium 1.2 L (1.6-2.3) mg/dL Troponin I (0.000-0.034) ng/mL 10/05/22 10/05/22 Range/Units 04:00 08:12 RBC (4.30-5.90) m/uL Hgb (13.0-17.5) gm/dL Hct (39.0-53.0) % APTT (22.0-30.0) sec Potassium (3.5-5.1) mmol/L BUN (9-20) mg/dL Creatinine (0.66-1.25) mg/dL Glucose (74-99) mg/dL Magnesium (1.6-2.3) mg/dL Troponin I 0.898 H* 1.010 H* (0.000-0.034) ng/mL
[2022-10-05] MEDS: MAGNESIUM OXIDE 400 MG TAB PO SCH (12:18)
[2022-10-05] MEDS: MAGNESIUM SULFATE-D5W PMX 1 GM in DEXTROSE/WATER 1 100ML.BAG IVPB SCH ×3 (12:19→16:26)
--- NOTE | 2022-10-05 12:42 | XR ---
EXAMINATION TYPE: XR chest 2V DATE OF EXAM: 10/05/2022 COMPARISON: 05/02/2022 HISTORY: Shortness of breath TECHNIQUE: Frontal and lateral views of the chest are obtained. FINDINGS: Scattered senescent parenchymal changes noted. Hyperinflation compatible with COPD. No evidence for infiltrate. No evidence for atelectasis. Heart size is stable. Mediastinal structures are stable and grossly unremarkable. Fixed hiatal hernia noted. No evidence for hilar prominence. Degenerative changes dorsal spine. IMPRESSION: 1. No evidence for acute pulmonary disease.
[2022-10-05] MEDS ORDERED: ISOSORBIDE MONONITRATE ER 60 MG TAB.ER.24H PO STA (14:16)
[2022-10-05 15:17] LABS: Glucose,Whole Blood 151 mg/dL (70-110)
[2022-10-05] MEDS: INSULIN ASPART (NovoLOG) 100 UNIT/ML VIAL SQ SCH ×2 (15:34→20:15)
[2022-10-05] MEDS: RANOLAZINE 500 MG TAB.ER.12H PO SCH (18:05)
--- NOTE | 2022-10-05 19:27 | P.CRDCN ---
History of Present Illness Consult date: 10/05/22 History of present illness: HISTORY OF PRESENTING ILLNESS 72-year-old who is known to Dr. Chang for history of coronary artery disease status post CABG and recent PCI in February 2022 2 OM1 graft, diabetes, dyslipidemia, ckd. He presented to our hospital from [facility]. He she presented with chest pain. 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 This was associated with some shortness of breath. The symptoms were very similar to his prior cardiac symptoms were less intense. He recently had a heart catheter done at [facility], by Dr Romero. He was told that he has lost 2 offices been grafts and was advised to be treated medically. He was started on Imdur and Ranexa. Patient was wanting to go to [facility] but EMS brought him to [facility]. On admission EKG reveals sinus rhythm with nonspecific 0.[address] depressions A which is not changed from prior ECG from April 2022. Laboratory reviewed, hemoglobin 11.1, platelets 161, potassium 5.2, creatinine 1.71. Creatinine appears to be at his baseline. Troponin 0.89. his troponin has a flat pattern and his creatinine appears to be at baseline. I feel this troponin elevation is because of his recent cardiac catheterization and poor renal clearance . Home cardiac medications include aspirin, atenolol 50 mg daily, Plavix, Jardiance, Imdur, Crestor. PRIOR CARDIAC TESTING Echo from April 2022 shows EF of 45%, moderate MR, severe pulmonary hypertension, moderate aortic, severe TR REVIEW OF SYSTEMS 14 point review of system is negative except what is mentioned above in HPI. PHYSICAL EXAMINATION Vital signs reviewed. Head: Normocephalic. Eyes: Sclerae nonicteric. Neck: Brisk carotid upstroke, no jugular venous distention. Lungs: Clear to auscultation. Heart: Regular rate and rhythm, S1-S2, no S3, no murmur or rub. Abdomen: Soft nontender, positive bowel sounds no organomegaly. Extremities: No edema, intact distal pulses. ASSESSMENT Stable angina in setting of advance CAD CAD status post CABG. Recent heart cath showing loss of 2 vein grafts Essential hypertension Dyslipidemia PLAN his troponin has a flat pattern and his creatinine appears to be at baseline. I feel this troponin elevation is because of his recent cardiac catheterization and poor renal clearance. He has already had a recent workup for his worsening stable anginal symptoms and further stress testing or invasive intervention would not be beneficial. I will discontinue IV heparin drip Continue his current cardiac medications, including aspirin, Plavix, statin, metoprolol. Will not increase his metoprolol as his heart rate is in 60s Increase Imdur to 120 mg daily Increase his Ranexa to 1000 milligrams twice a day Obtain an echocardiogram Obtain medical records from [facility]. Please check the chart tomorrow If echo is similar, he is cleared to discharge from cardiac standpoint tomorrow afternoon, with outpatient follow-up with Dr. Romero Past Medical History Past Medical History: Coronary Artery Disease (CAD), Chest Pain / Angina, COPD, Diabetes Mellitus, Eye Disorder, GI Bleed, Hearing Disorder / Deafness, Myoc ardial Infarction ([place]), Osteoarthritis (OA) Additional Past Medical History / Comment(s): See Dr Everett's H&P. Recent Flu, resolved now. More frequent angina. PREVIOUS DETACHED RETINA. "Poor kidney function 11/30, better now." Hard of hearing. 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 Past Anesthesia/Blood Transfusion Reactions: No Reported Reaction Date of Last Stent Placement:: unknown Past Psychological History: No Psychological Hx Reported Smoking Status: Former smoker Past Alcohol Use History: Rare Past Drug Use History: None Reported - Past Family History Brother(s) Family Medical History: Cancer Medications and Allergies Home Medications Medication Instructions Recorded Confirmed Type Nitroglycerin Sl Tabs [Nitrostat] 0.4 mg SL Q5M PRN 09/22/13 10/05/22 History Fluticasone Propion/Salmeterol 1 puff INHALATION RT-BID PRN 11/26/21 10/05/22 History [Advair 100-50 Diskus] Rosuvastatin [Crestor] 20 mg PO DAILY 11/26/21 10/05/22 History Omeprazole [PriLOSEC] 20 mg PO DAILY 01/21/22 10/05/22 History Aspirin EC [Ecotrin Low Dose] 81 mg PO DAILY 04/09/22 10/05/22 History Acetaminophen Tab [Tylenol] 1,000 mg PO Q6HR PRN tab 04/30/22 10/05/22 Rx Potassium Chloride [K-Tab ER] 20 meq PO DAILY #30 tab 04/30/22 10/05/22 Rx Torsemide [Demadex] 20 mg PO DAILY tab 04/30/22 10/05/22 Rx ALPRAZolam [Xanax] 0.5 mg PO TID PRN 10/05/22 10/05/22 History Clopidogrel [Plavix] 75 mg PO DAILY 10/05/22 10/05/22 History Isosorbide Mononitrate ER [Imdur] 60 mg PO BID 10/05/22 10/05/22 History Magnesium Oxide [Mag-Ox] 250 mg PO W/BRKFST 10/05/22 10/05/22 History Metoprolol Succinate (ER) [Toprol 50 mg PO DAILY 10/05/22 10/05/22 History Xl] Ranolazine [Ranexa] 500 mg PO BID 10/05/22 10/05/22 History Simethicone 40 mg/0.6 ml Drops 40 mg PO QID PRN 10/05/22 10/05/22 History [Mylicon Drops] Tamsulosin [Flomax] 0.4 mg PO DAILY 10/05/22 10/05/22 History glipiZIDE [Glucotrol] 5 mg PO AC-BID 10/05/22 10/05/22 History lisinopriL [Zestril] 2.5 mg PO DAILY 10/05/22 10/05/22 History metFORMIN HCL 1,000 mg PO BID 10/05/22 10/05/22 History Allergies Allergy/AdvReac Type Severity Reaction Status Date / Time pregabalin [From Lyrica] Allergy Severe Anaphylaxis Verified 10/05/22 10:40 gabapentin Allergy Swelling, Verified 10/05/22 10:40 rash, hives Physical Exam Vitals: Vital Signs Temp Pulse Resp BP Pulse Ox 10/05/22 08:00 69 18 151/69 99 10/05/22 03:51 98 F 63 18 148/67 99 Intake and Output 10/04/22 10/05/22 10/05/22 22:59 06:59 14:59 Other: Weight 69.853 kg Results 10/05/22 04:00 10/05/22 04:00 Cardiac Enzymes 10/05/22 10/05/22 Range/Units 04:00 04:00 AST 23 (17-59) U/L Troponin I 0.898 H* (0.000-0.034) ng/mL Coagulation 10/05/22 Range/Units 04:00 PT 10.5 (9.0-12.0) sec APTT 59.3 H (22.0-30.0) sec CBC 10/05/22 Range/Units 04:00 WBC 7.2 (3.8-10.6) k/uL RBC 3.68 L (4.30-5.90) m/uL Hgb 11.1 L (13.0-17.5) gm/dL Hct 33.8 L (39.0-53.0) % Plt Count 161 (150-450) k/uL Comprehensive Metabolic Panel 10/05/22 Range/Units 04:00 Sodium 139 (137-145) mmol/L Potassium 5.2 H (3.5-5.1) mmol/L Chloride 107 (98-107) mmol/L Carbon Dioxide 23 (22-30) mmol/L BUN 33 H (9-20) mg/dL Creatinine 1.71 H (0.66-1.25) mg/dL Glucose 134 H (74-99) mg/dL Calcium 9.3 (8.4-10.2) mg/dL AST 23 (17-59) U/L ALT 19 (4-49) U/L Alkaline Phosphatase 46 (38-126) U/L Total Protein 6.9 (6.3-8.2) g/dL Albumin 4.0 (3.5-5.0) g/dL Current Medications Generic Name Dose Route Start Last Admin Trade Name Freq PRN Reason Stop Dose Admin Atorvastatin Calcium 40 mg 10/05/22 09:00 Atorvastatin 40 Mg Tab PO DAILY [facility] Hydromorphone HCl 1 mg 10/05/22 05:25 Hydromorphone 1 Mg/Ml 1 Ml Syringe IVP Q3HR PRN Severe Pain (Scale 7 to 10) Sodium Chloride 1,000 mls @ 75 mls/hr 10/05/22 05:30 10/05/22 06:28 Saline 0.9% IV 75 mls/hr .[id number] [facility] Administration Metoprolol Tartrate 25 mg 10/05/22 09:00 Metoprolol Tartrate 25 Mg Tab PO BID [facility] Naloxone HCl 0.2 mg 10/05/22 05:25 Naloxone 0.4 Mg/Ml 1 Ml Vial IV Q2M PRN Opioid Reversal Non-Formulary Medication 81 mg 10/05/22 09:00 Aspirin Ec PO DAILY [facility] Ondansetron HCl 4 mg 10/05/22 05:25 Ondansetron 4 Mg/2 Ml Vial IVP Q8HR PRN Nausea And Vomiting Intake and Output 10/04/22 10/05/22 10/05/22 22:59 06:59 14:59 Other: Weight 69.853 kg 10/05/22 04:00 10/05/22 04:00
[2022-10-05] MEDS: SYMBICORT 80-4.5 MCG INHALER INHALATION PRN (19:49)
[2022-10-05 20:15] LABS: Glucose,Whole Blood 123 mg/dL (70-110)
[2022-10-05] MEDS: ALPRAZolam 0.5 MG TAB PO PRN (22:40)
[2022-10-06 06:19] LABS: Glucose,Whole Blood 125 mg/dL (70-110)
[2022-10-06] MEDS: INSULIN ASPART (NovoLOG) 100 UNIT/ML VIAL SQ SCH ×4 (06:20→20:38)
[2022-10-06] MEDS: RANOLAZINE 500 MG TAB.ER.12H PO SCH ×2 (06:25→17:24)
[2022-10-06] MEDS: PANTOPRAZOLE 40 MG TABLET PO SCH (06:26)
[2022-10-06] MEDS: MAGNESIUM OXIDE 400 MG TAB PO SCH (06:26)
[2022-10-06] MEDS: NITROGLYCERIN SL TABS 0.4 MG TAB SUBLINGUAL PRN ×5 (08:06→19:37)
[2022-10-06] MEDS: TAMSULOSIN 0.4 MG CAP.ER.24H PO SCH (08:18)
[2022-10-06] MEDS: CLOPIDOGREL 75 MG TAB PO SCH (08:19)
[2022-10-06] MEDS: ATORVASTATIN 40 MG TAB PO SCH (08:19)
[2022-10-06] MEDS: ASPIRIN 81 MG PO SCH (08:19)
[2022-10-06] MEDS: METOPROLOL SUCCINATE (ER) 50 MG TAB.ER.24H PO SCH (08:19)
[2022-10-06] MEDS: ISOSORBIDE MONONITRATE ER 60 MG TAB.ER.24H PO SCH (08:19)
[2022-10-06] MEDS: SYMBICORT 80-4.5 MCG INHALER INHALATION PRN (08:49)
[2022-10-06] MEDS ORDERED: ATORVASTATIN 40 MG TAB PO SCH (09:00)
--- NOTE | 2022-10-06 09:51 | P.PN ---
Subjective Progress Note Date: 10/06/22 PROGRESS NOTE The patient is a 72-year-old male with a known history of CAD, post redo CABG and PCI, followed in [place] who presents with symptoms of unstable angina. He has underwent cardiac catheterization recently and was found to have patent 1 SVG and occluded 2 SVG with severe [place] disease. The plan was to maximize his medical therapy. 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 He had chest discomfort earlier today prior to receiving his morning medications. He had no new EKG changes. He has mild dyspnea with the pain. He continues to be in sinus mechanism. He denies any nausea or vomiting. Medications: Aspirin, Lipitor 40 mg daily, Plavix 75 g daily, insulin, isosorbide 120 mg daily, metoprolol succinate 50 mg daily, Ranexa 1 g twice a day PHYSICAL EXAMINATION: Blood pressure 144/50 heart rate 60 LUNGS: [Clear to auscultation] HEART: [Regular rate and rhythm, S1, S2. No S3. Systolic ejection murmur] ABDOMEN: [Soft, nontender, no organomegaly] EXTREMETIES: [No edema] LAB: Peak troponin 1.0 IMPRESSION: 1. Acute coronary syndrome status post recent GA 2. Status post redo CABG with occluded SVG 3. Chronic kidney disease 4. Hypertension 5. Hyperlipidemia 6. Diabetes mellitus PLAN: 1. Continue present therapy 2. Follow heart rate and if stable increase metoprolol 3. 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 Depending on his progress further recommendations will be made Objective - Vital Signs Vital signs: Vital Signs Temp 97.4 F L 10/06/22 08:00 Pulse 72 10/06/22 08:00 Resp 18 10/06/22 08:00 BP 172/98 10/06/22 08:00 Pulse Ox 97 10/06/22 08:49 FiO2 Intake & Output 10/05/22 10/06/22 10/06/22 18:59 06:59 18:59 Intake Total 131.737 240 Balance 131.737 240 Weight 69.853 kg Intake: Intake, IV Titration 131.737 Amount Heparin Sod,Pork in 0.45% 63.284 NaCl 25,000 unit In 0.45 % NaCl 1 250ml.bag @ 12 UNITS/KG/HR 8.382 mls/hr IV .Q24H [facility] Rx#: [id number] Heparin Sod,Pork in 0.45% 68.453 NaCl 25,000 unit In 0.45 % NaCl 1 250ml.bag @ 12 UNITS/KG/HR 8.382 mls/hr IV .Q24H [facility] Rx#: [id number] Oral 240 Other: Voiding Method Toilet # Voids 2 - Labs CBC & Chem 7: 10/05/22 04:00 10/05/22 04:00 Labs: Abnormal Lab Results - Last 24 Hours (Table) 10/05/22 10/05/22 10/05/22 Range/Units 11:39 15:15 20:15 POC Glucose (mg/dL) 151 H 123 H (70-110) mg/dL Troponin I 0.676 H* (0.000-0.034) ng/mL 10/06/22 Range/Units 06:18 POC Glucose (mg/dL) 125 H (70-110) mg/dL Troponin I (0.000-0.034) ng/mL
--- NOTE | 2022-10-06 11:34 | CA ---
Transthoracic Echo Report Name: Christ Resendiz Age: 72 Gender: M : 1950 Exam Date: 10/06/2022 08:29 Exam Location: [place] [facility] Ht (in): 64 Wt (lb): 154 Ordering Physician: Dex Mitchell MD ([id number]) Attending/Referring Phys: Stephen Kowalski;[id number] Service Line Coordinator Aleta Wells RDCS Procedure CPT: Indications: nstemi Cardiac Hx: CABG #3 Technical Quality: Good Contrast 1: Total Dose (mL): Contrast 2: Total Dose (mL): MEASUREMENTS (Male / Female) Normal Values 2D ECHO LV Diastolic Diameter PLAX 4.7 cm 4.2 - 5.9 / 3.9 - 5.3 cm LV Systolic Diameter PLAX 4.4 cm IVS Diastolic Thickness 1.2 cm 0.6 - 1.0 / 0.6 - 0.9 cm LVPW Diastolic Thickness 1.3 cm 0.6 - 1.0 / 0.6 - 0.9 cm LV Relative Wall Thickness 0.5 RV Internal Dim ED PLAX 2.7 cm LV Diastolic Volume MOD BP 124.9 cm??? 67 - 155 / 56 - 104 cm??? LV Systolic Volume MOD BP 77.2 cm??? 22 - 58 / 19 - 49 cm??? LV Ejection Fraction MOD BP 38.2 % >= 55 % LV Cardiac Index MOD BP 2238.7 cm???/min???m??? LV Diastolic Volume MOD 4C 120.9 cm??? LV Systolic Volume MOD 4C 80.9 cm??? LV Ejection Fraction MOD 4C 33.1 % LV Cardiac Index MOD 4C 1877.4 cm???/min???m??? LV Diastolic Length 4C 8.3 cm LV Systolic Length 4C 7.8 cm LV Diastolic Volume MOD 2C 124.4 cm??? LV Systolic Volume MOD 2C 70.9 cm??? LV Ejection Fraction MOD 2C 43.1 % LV Cardiac Index MOD 2C 2512.3 cm???/min???m??? LV Diastolic Length 2C 8.8 cm LV Systolic Length 2C 8.3 cm LA Volume 68.7 cm??? 18 - 58 / 22 - 52 cm??? M-MODE Aortic Root Diameter MM 3.8 cm MV E Point Septal Separation 1.4 cm AV Cusp Separation MM 2.1 cm DOPPLER AV Peak Velocity 115.1 cm/s AV Peak Gradient 5.3 mmHg AI Peak Velocity 370.0 cm/s AI Peak Gradient 54.8 mmHg AI Pressure Half Time 260.8 ms TR Peak Velocity 425.5 cm/s TR Peak Gradient 72.4 mmHg Right Ventricular Systolic Press 77.4 mmHg FINDINGS Left Ventricle Left ventricular ejection fraction is estimated 35-40 %. Mildly increased septal wall thickness. Moderately increased left ventricular systolic volume. Moderately decreased left ventricular ejection fraction. Mild concentric left ventricular hypertrophy. Right Ventricle Normal right ventricular size. Severe pulmonary hypertension. Reduced right ventricular global systolic function. Right Atrium Normal right atrial size. Left Atrium Mildly increased left atrial volume. Mildly increased left atrial area. Mitral Valve Mitral valve thickened. Moderate mitral regurgitation. Aortic Valve Trileaflet aortic valve. Aortic valve sclerosis. Mild aortic regurgitation. Tricuspid Valve Structurally normal tricuspid valve. [id number] tricuspid regurgitation. Pulmonic Valve Structurally normal pulmonic valve. Pericardium No pericardial effusion. Aorta Mild aortic dilatation at the level of the sinotubular junction 38 mm CONCLUSIONS Impaired LV systolic function. The ejection fraction is 35-40%. Anterolateral hypokinesia noted Severe pulmonary hypertension. Normal right ventricular dimension and systolic function. Moderate tricuspid regurgitation. Moderate mitral regurgitation Aortic sclerosis with mild aortic insufficiency Previewed by: Dr. Ariel Lewis MD (Electronically Signed) Final Date: 06 October 2022 11:33
[2022-10-06 11:40] LABS: Glucose,Whole Blood 250 mg/dL (70-110)
[2022-10-06 13:52] LABS: Basophils % (A) 0 %; Eosinophils # (A) 0.3 k/uL (0-0.7); Eosinophils % (A) 4 %; HCT 35.2 % (39.0-53.0); HGB 11.5 gm/dL (13.0-17.5); Lymphocytes % (A) 15 %; MCHC 32.8 g/dL (31.0-37.0); MCV 91.7 fL (80.0-100.0); Mean Platelet Volume 9.2; Monocytes # (A) 0.5 k/uL (0-1.0); Monocytes % (A) 7 %; Neutrophils # (A) 4.8 k/uL (1.3-7.7); Neutrophils % (A) 71 %; Platelet Count 159 k/uL (150-450); RBC 3.84 m/uL (4.30-5.90); RDW 13.4 % (11.5-15.5); WBC 6.7 k/uL (3.8-10.6)
[2022-10-06 14:15] LABS: ALT 18 U/L (4-49); AST 19 U/L (17-59); African American GFR (CKD) 52 (>60 ml/min/1.73 sqM); Albumin 4.2 g/dL (3.5-5.0); Alkaline Phosphatase 44 U/L (38-126); Anion Gap 9 mmol/L; Blood Urea Nitrogen 23 mg/dL (9-20); Calcium 9.3 mg/dL (8.4-10.2); Carbon Dioxide 22 mmol/L (22-30); Chloride 103 mmol/L (98-107); Glucose 212 mg/dL (74-99); Magnesium 1.6 mg/dL (1.6-2.3); Non-African American GFR(CKD) 45 (>60 ml/min/1.73 sqM); Phosphorus 3.6 mg/dL (2.5-4.5); Potassium 5.2 mmol/L (3.5-5.1); Sodium 134 mmol/L (137-145); Total Bilirubin 0.5 mg/dL (0.2-1.3); Total Protein 7.1 g/dL (6.3-8.2)
[2022-10-06] MEDS ORDERED: Magnesium Replacement Protocol 1 EACH MISC MISCELLANE PRN (16:21)
--- NOTE | 2022-10-06 16:25 | P.PN ---
Subjective Progress Note Date: 10/06/22 71-year-old male with extensive cardiac history with a history of CABG multiple stents in the past with recent cardiac catheterization in the month of February at that time, patient had stenting to proximal obtuse marginal, distal segment of the saphenous venous graft to obtuse marginal and stenting of proximal segment of the saphenous venous graft to obtuse marginal with reduction of stenosis to 0%. Patient had normal ejection fraction the past may have diastolic dysfunction came in with complaints of chest pain similar to the chest pain went when he had heart attacks with elevated troponins of 0.898 and 1.010. Patient is on maximizing medical therapy with Ranexa, isosorbide mononitrate, beta taylor, statin and CRISTY inhibitor low dose. Patient baseline creatinine is around 1.2 went up to 1.7 patient blood pressure still high but the patient has renal dysfunction because of which CRISTY inhibitor is being held temporarily patient appears to be euvolemic received IV fluids chest x-ray is not available at this time. BNP is not available at this time. Patient denied any shortness of breath orthopnea or proximal nocturnal dyspnea patient just pain is episodic in nature. 10/06/2022 Patient is evaluated today ambulating around the room. He had an episode of chest pain/pressure this AM which he Required 2 doses of sublingual nitroglycerin which did resolve the chest pain. His echocardiogram was completed showing an EF of 35-40% with anterior lateral hypokinesia noted. There is severe pulmonary hypertension there is normal right ventricular dimension and systolic function there is moderate tricuspid regurgitation and moderate mitral regurgitation. There is aortic sclerosis with mild aortic insufficiency. Patient does have chronic occlusion. Cardiology is adjusting medications. Ranexa been increased to 1000 mg twice a day. Patient will be monitored overnight. Review of Systems Constitutional: Denied any fatigue denied any fever. Cardio vascular: denied any chest pain, palpitations Gastrointestinal: denied any nausea, vomiting, diarrhea Pulmonary: Denied any shortness of breath cough Neurologic denied any new focal deficits All inpatient medications were reviewed and appropriate changes in these medications as dictated in the interval history and assessment and plan. PHYSICAL EXAMINATION: GENERAL: The patient is alert and oriented x3, not in any acute distress. Well developed, well nourished. HEENT: Pupils are round and equally reacting to light. EOMI. No scleral icterus. No conjunctival pallor. Normocephalic, atraumatic. No pharyngeal erythema. No thyromegaly. CARDIOVASCULAR: S1 and S2 present. No murmurs, rubs, or gallops. PULMONARY: Chest is clear to auscultation, no wheezing or crackles. ABDOMEN: Soft, nontender, nondistended, normoactive bowel sounds. No palpable organomegaly. MUSCULOSKELETAL: No joint swelling or deformity. EXTREMITIES: No cyanosis, clubbing, or pedal edema. NEUROLOGICAL: Gross neurological examination did not reveal any focal deficits. SKIN: No rashes. Assessment -Acute NSTEMI and acute coronary syndrome status post recent IA -Severe coronary artery disease prior cardiac stenting and chronic occlusion Patient patient was resumed on his home medications -Congestive heart failure chronic diastolic dysfunction, decreased EF to 35-40% with anterior lateral hypokinesia. 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 Continue on cardiac monitoring. Patient will need to follow-up with his primary telecommunications repairer out of [place] for any possible cardiac intervention if warranted. Continue all the same home medications. I recommend to repeat labs in the morning. Magnesium will be replaced. The impression and plan of care has been dictated by Carmita Johnson, Nurse Practitioner as directed. Dr. Akbar MD I have performed a history and physical examination and medical decision making of this patient, discussed the same with the dictator, and agree with the dictators assessment and plan as written, documented as a scribe. Based on total visit time, I have performed more than 50% of this visit. Objective - Vital Signs Vital signs: Vital Signs Temp 97.4 F L 10/06/22 08:00 Pulse 72 10/06/22 08:00 Resp 18 10/06/22 08:00 BP 172/98 10/06/22 08:00 Pulse Ox 97 10/06/22 08:49 FiO2 Intake & Output 10/05/22 10/06/22 10/06/22 18:59 06:59 18:59 Intake Total 131.737 Balance 131.737 Weight 69.853 kg Intake: Intake, IV Titration 131.737 Amount Heparin Sod,Pork in 0.45% 63.284 NaCl 25,000 unit In 0.45 % NaCl 1 250ml.bag @ 12 UNITS/KG/HR 8.382 mls/hr IV .Q24H [facility] Rx#: [id number] Heparin Sod,Pork in 0.45% 68.453 NaCl 25,000 unit In 0.45 % NaCl 1 250ml.bag @ 12 UNITS/KG/HR 8.382 mls/hr IV .Q24H [facility] Rx#: [id number] Other: Voiding Method Toilet # Voids 2 - Labs CBC & Chem 7: 10/06/22 11:50 10/06/22 11:50 Labs: Abnormal Lab Results - Last 24 Hours (Table) 10/05/22 10/05/22 10/05/22 Range/Units 08:12 11:39 15:15 POC Glucose (mg/dL) 151 H (70-110) mg/dL Troponin I 1.010 H* 0.676 H* (0.000-0.034) ng/mL 10/05/22 10/06/22 Range/Units 20:15 06:18 POC Glucose (mg/dL) 123 H 125 H (70-110) mg/dL Troponin I (0.000-0.034) ng/mL Assessment and Plan Time with Patient: Less than 30
[2022-10-06 16:41] LABS: Glucose,Whole Blood 134 mg/dL (70-110)
[2022-10-06] MEDS ORDERED: SODIUM ZIRCONIUM CYCLOSILICATE 10 GM PACKET PO ONE (17:00)
[2022-10-06] MEDS: MAGNESIUM SULFATE-D5W PMX 1 GM in DEXTROSE/WATER 1 100ML.BAG IVPB SCH ×2 (17:23→19:32)
[2022-10-06] MEDS: ALPRAZolam 0.5 MG TAB PO PRN (19:36)
[2022-10-06 20:27] LABS: Glucose,Whole Blood 218 mg/dL (70-110)
[2022-10-06] MEDS: HEPARIN SODIUM,PORCINE 5,000 UNIT/ML 1 ML VIAL SQ SCH (20:38)
[2022-10-07] MEDS: NITROGLYCERIN SL TABS 0.4 MG TAB SUBLINGUAL PRN ×2 (05:10→07:01)
[2022-10-07] MEDS: PANTOPRAZOLE 40 MG TABLET PO SCH (05:12)
[2022-10-07] MEDS: RANOLAZINE 500 MG TAB.ER.12H PO SCH (05:12)
[2022-10-07] MEDS: MAGNESIUM OXIDE 400 MG TAB PO SCH (05:13)
[2022-10-07 05:45] LABS: Glucose,Whole Blood 179 mg/dL (70-110)
[2022-10-07] MEDS: INSULIN ASPART (NovoLOG) 100 UNIT/ML VIAL SQ SCH ×2 (06:36→13:29)
[2022-10-07] MEDS: ISOSORBIDE MONONITRATE ER 60 MG TAB.ER.24H PO SCH (08:06)
[2022-10-07] MEDS: ASPIRIN 81 MG PO SCH (08:06)
[2022-10-07] MEDS: METOPROLOL SUCCINATE (ER) 50 MG TAB.ER.24H PO SCH (08:06)
[2022-10-07] MEDS: TAMSULOSIN 0.4 MG CAP.ER.24H PO SCH (08:06)
[2022-10-07] MEDS: CLOPIDOGREL 75 MG TAB PO SCH (08:06)
[2022-10-07] MEDS: ATORVASTATIN 40 MG TAB PO SCH (08:06)
[2022-10-07] MEDS: HEPARIN SODIUM,PORCINE 5,000 UNIT/ML 1 ML VIAL SQ SCH (08:07)
[2022-10-07 08:20] VITALS: BP 136/84; PULSE 63; RESP 18; TEMP 97.6
[2022-10-07] MEDS: SYMBICORT 80-4.5 MCG INHALER INHALATION PRN (08:29)
[2022-10-07 08:34] LABS: African American GFR (CKD) 52 (>60 ml/min/1.73 sqM); Blood Urea Nitrogen 20 mg/dL (9-20); Calcium 9.5 mg/dL (8.4-10.2); Carbon Dioxide 22 mmol/L (22-30); Glucose 210 mg/dL (74-99); Magnesium 1.8 mg/dL (1.6-2.3); Non-African American GFR(CKD) 45 (>60 ml/min/1.73 sqM)
--- NOTE | 2022-10-07 08:56 | P.PN ---
Subjective Progress Note Date: 10/07/22 PROGRESS NOTE The patient is a 72-year-old male with a known history of CAD, post redo CABG and PCI, followed in [place] who presents with symptoms of unstable angina. He has underwent cardiac catheterization recently and was found to have patent 1 SVG and occluded 2 SVG with severe [place] disease. The plan was to maximize his medical therapy. According to him he was being evaluated for possible fur ther intervention, could be PCI of SPECIAL EDUCATION PROFESSIONAL [place] disease. He had chest discomfort earlier today prior to receiving his morning medications. He had no new EKG changes. He has mild dyspnea with the pain. He continues to be in sinus mechanism. He denies any nausea or vomiting. October 07: The patient feels better overall today. He has minimal chest discomfort. His breathing is stable. He denies any dizziness or palpitations or syncope. He has been ambulating in his room without much difficulties. He has no nausea or vomiting and continues to be in sinus mechanism. Medications: Aspirin, Lipitor 40 mg daily, Plavix 75 g daily, insulin, isosorbide 120 mg daily, metoprolol succinate 50 mg daily, Ranexa 1 g twice a day PHYSICAL EXAMINATION: Blood pressure 136/80 heart rate 63 LUNGS: Clear to auscultation HEART: Regular rate and rhythm, S1, S2. No S3. Systolic ejection murmur ABDOMEN: Soft, nontender, no organomegaly EXTREMETIES: No edema LAB: Creatinine 1.52, BUN 20 IMPRESSION: 1. Acute coronary syndrome , status post recent CA 2. Status post redo CABG with occluded SVG 3. Chronic kidney disease, stable 4. Hypertension 5. Hyperlipidemia 6. Diabetes mellitus PLAN: 1. Continue present therapy 2. Increase physical activity 3. Probable discharge home today and follow-up with primary lock installer for possible evaluation for [employer] EDUCATION PROFESSIONAL PCI in view of his occluded grafts and persistent symptoms Objective - Vital Signs Vital signs: Vital Signs Temp 97.6 F 10/07/22 08:00 Pulse 63 10/07/22 08:00 Resp 18 10/07/22 08:00 BP 136/84 10/07/22 08:00 Pulse Ox 98 10/07/22 08:00 FiO2 Intake & Output 10/06/22 10/07/22 10/07/22 18:59 06:59 18:59 Intake Total 600 540 240 Balance 600 540 240 Weight 69.4 kg Intake: Intake, IV Titration 200 Amount Magnesium Sulfate-D5w Pmx 200 1 gm In Dextrose/Water 1 100ml.bag @ 100 mls/hr IVPB Q1H [facility] Rx#: [id number] Oral 600 340 240 Other: # Voids 2 2 - Labs CBC & Chem 7: 10/06/22 11:50 10/07/22 08:15 Labs: Abnormal Lab Results - Last 24 Hours (Table) 10/06/22 10/06/22 10/06/22 Range/Units 11:39 11:50 11:50 RBC 3.84 L (4.30-5.90) m/uL Hgb 11.5 L (13.0-17.5) gm/dL Hct 35.2 L (39.0-53.0) % Sodium 134 L (137-145) mmol/L Potassium 5.2 H (3.5-5.1) mmol/L BUN 23 H (9-20) mg/dL Creatinine 1.53 H (0.66-1.25) mg/dL Glucose 212 H (74-99) mg/dL POC Glucose (mg/dL) 250 H (70-110) mg/dL 10/06/22 10/06/22 10/07/22 Range/Units 16:39 20:25 05:41 RBC (4.30-5.90) m/uL Hgb (13.0-17.5) gm/dL Hct (39.0-53.0) % Sodium (137-145) mmol/L Potassium (3.5-5.1) mmol/L BUN (9-20) mg/dL Creatinine (0.66-1.25) mg/dL Glucose (74-99) mg/dL POC Glucose (mg/dL) 134 H 218 H 179 H (70-110) mg/dL 10/07/22 Range/Units 08:15 RBC (4.30-5.90) m/uL Hgb (13.0-17.5) gm/dL Hct (39.0-53.0) % Sodium (137-145) mmol/L Potassium (3.5-5.1) mmol/L BUN (9-20) mg/dL Creatinine 1.52 H (0.66-1.25) mg/dL Glucose 210 H (74-99) mg/dL POC Glucose (mg/dL) (70-110) mg/dL
[2022-10-07] MEDS ORDERED: MAGNESIUM SULFATE-D5W PMX 1 GM in DEXTROSE/WATER 1 100ML.BAG IVPB ONE (09:17)
[2022-10-07 09:43] LABS: Anion Gap 10 mmol/L; Chloride 103 mmol/L (98-107); Potassium 4.7 mmol/L (3.5-5.1); Sodium 135 mmol/L (137-145)
[2022-10-07 11:35] LABS: Glucose,Whole Blood 187 mg/dL (70-110)
--- NOTE | 2022-10-07 15:49 | P.DS ---
Providers Date of admission: 10/05/22 05:25 Attending physician: Ad Dupont Consults: 10/05/22 05:25 Consult Physician Routine Consulting Provider: Augustine Melton Consult Reason/Comments: nstemi Do you want consulting provider notified?: Yes Primary care physician: Ed Ferro Hospital Course: Final Diagnosis -Acute NSTEMI and acute coronary syndrome status post recent [place] -Severe coronary artery disease prior cardiac stenting and chronic occlusion Patient patient was resumed on his home medications -Congestive heart failure chronic diastolic dysfunction, decreased EF to 35-40% with anterior lateral hypokinesia. 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 Cardiology recommending to increase Imdur up to 120 mg daily additionally Ranexa has been increased to 1000 mg twice a day. Patient to continue on sublingual nitro limits for acute onset chest pain. Patient recommended to follow-up with his primary yard switcher out of [facility]. Patient is understanding of this recommendation and is agreeing to make an appointment when he is discharged home from the hospital. did have hyperkalemia on admission and potassium was recommended to be discontinued. Patient was given scripts for follow-up BMP and CBC in 2-3 days and recommended to see his primary medical provider Kyle Hall NP 1-2 days. Hospital Course 71-year-old male with extensive cardiac history with a history of CABG multiple stents in the past with recent cardiac catheterization in the month of February at that time, Patient had normal ejection fraction the past may have diastolic dysfunction came in with complaints of chest pain similar to the chest pain went when he had heart attacks with elevated troponins of 0.898 and 1.010. Patient is on maximizing medical therapy with Ranexa, isosorbide mononitrate, beta taylor, statin and CRISTY inhibitor low dose. Patient baseline creatinine is around 1.2 went up to 1.7 patient blood pressure still high but the patient has renal dysfunction because of which CRISTY inhibitor is being held temporarily patient appears to be euvolemic. Patient denied any shortness of breath orthopnea or proximal nocturnal dyspnea patient just pain is episodic in nature. Patient was admitted to the hospital under medicine with consult placed to card [email or web address]. He had an episode of chest pain/pressure this AM which he Required 2 doses of sublingual nitroglycerin which did resolve the chest pain. His echocardiogram was completed showing an EF of 35-40% with anterior lateral hypokinesia noted. There is severe pulmonary hypertension there is normal right ventricular dimension and systolic function there is moderate tricuspid regurgitation and moderate mitral regurgitation. There is aortic sclerosis with mild aortic insufficiency. Patient does have chronic occlusion. Cardiology is adjusting medications. Ranexa been increased to 1000 mg twice a day, imdur has also been increased. Symptoms have improved patient was monitored overnight. Cardiology recommending patient to follow-up with his normal yard switcher out of [place] for possible intervention. hemodynamically he is stable. Lungs are clear S1-S2 auscultated. Regular rate and rhythm. Alert 3 patient is admitting on the room without difficulty. Ostomy is functioning and no other acute complaints. Patient will be discharged home with the above-mentioned recommendations. Please see medication reconciliation for a list of current medication. Thank you for allowing us to participate in the care of this patient. The impression and plan of care has been dictated by Carmita Johnson, Nurse Practitioner as directed. Dr. Akbar MD I have performed a history and physical examination and medical decision making of this patient, discussed the same with the dictator, and agree with the dictators assessment and plan as written, documented as a scribe. Based on total visit time, I have performed more than 50% of this visit. Patient Condition at Discharge: Fair Plan - Discharge Summary Discharge Rx Participant: No New Discharge Prescriptions: New Ranolazine [Ranexa] 1,000 mg PO Q12H #60 tab Isosorbide Mononitrate ER [Imdur] 120 mg PO DAILY #30 tab Continue Fluticasone Propion/Salmeterol [Advair 100-50 Diskus] 1 puff INHALATION RT- BID PRN PRN Reason: Shortness Of Breath Omeprazole [PriLOSEC] 20 mg PO DAILY Acetaminophen Tab [Tylenol] 1,000 mg PO Q6HR PRN tab PRN Reason: Fever And/ Or Pain Magnesium Oxide [Mag-Ox] 250 mg PO W/BRKFST glipiZIDE [Glucotrol] 5 mg PO AC-BID Clopidogrel [Plavix] 75 mg PO DAILY Simethicone 40 mg/0.6 ml Drops [Mylicon Drops] 40 mg PO QID PRN PRN Reason: Gi Upset Nitroglycerin Sl Tabs [Nitrostat] 0.4 mg SL Q5M PRN #20 tab PRN Reason: Chest Pain Rosuvastatin [Crestor] 20 mg PO DAILY Aspirin EC [Ecotrin Low Dose] 81 mg PO DAILY metFORMIN HCL 1,000 mg PO BID Metoprolol Succinate (ER) [Toprol XL] 50 mg PO DAILY Tamsulosin [Flomax] 0.4 mg PO DAILY ALPRAZolam [Xanax] 0.5 mg PO TID PRN PRN Reason: Anxiety Discontinued Torsemide [Demadex] 20 mg PO DAILY tab Ranolazine [Ranexa] 500 mg PO BID Isosorbide Mononitrate ER [Imdur] 60 mg PO BID Potassium Chloride [K-Tab ER] 20 meq PO DAILY #30 tab lisinopriL [Zestril] 2.5 mg PO DAILY Discharge Medication List Fluticasone Propion/Salmeterol [Advair 100-50 Diskus] 1 puff INHALATION RT-BID PRN 11/26/21 [History] Rosuvastatin [Crestor] 20 mg PO DAILY 11/26/21 [History] Omeprazole [PriLOSEC] 20 mg PO DAILY 01/21/22 [History] Aspirin EC [Ecotrin Low Dose] 81 mg PO DAILY 04/09/22 [History] Acetaminophen Tab [Tylenol] 1,000 mg PO Q6HR PRN tab 04/30/22 [Rx] ALPRAZolam [Xanax] 0.5 mg PO TID PRN 10/05/22 [History] Clopidogrel [Plavix] 75 mg PO DAILY 10/05/22 [History] Magnesium Oxide [Mag-Ox] 250 mg PO W/BRKFST 10/05/22 [History] Metoprolol Succinate (ER) [Toprol XL] 50 mg PO DAILY 10/05/22 [History] Simethicone 40 mg/0.6 ml Drops [Mylicon Drops] 40 mg PO QID PRN 10/05/22 [History] Tamsulosin [Flomax] 0.4 mg PO DAILY 10/05/22 [History] glipiZIDE [Glucotrol] 5 mg PO AC-BID 10/05/22 [History] metFORMIN HCL 1,000 mg PO BID 10/05/22 [History] Isosorbide Mononitrate ER [Imdur] 120 mg PO DAILY #30 tab 10/07/22 [Rx] Nitroglycerin Sl Tabs [Nitrostat] 0.4 mg SL Q5M PRN #20 tab 10/07/22 [Rx] Ranolazine [Ranexa] 1,000 mg PO Q12H #60 tab 10/07/22 [Rx] Follow up Appointment(s)/Referral(s): Ed Ferro MD [Primary Care Provider] - 1-2 days Kyle Hall NPC [REFERRING] - 1-2 Days Elton Everett MD [STAFF PHYSICIAN] - 1 Week Ambulatory/Diagnostic Orders: Basic Metabolic Panel [LAB.AMB] Time Frame: 3 Days, Location: None Selected Activity/Diet/Wound Care/Special Instructions: Follow up with your primary yard switcher Dr. Jojo Cline for further evaluation possible PCI in view of occluded grafts and persistent chest disc omfort. See your PCP Kyle Hall PICKLING MACHINE OPERATOR in 1 to 2 days Discharge Disposition: HOME WITH HOME HEALTH SERVICES
== END 2022-10-07 15:35 | disposition home health service (06) | DRG 281 ==
LOC: EC 03:40 → 3SCARD 05:25
PROVIDERS: ADMIT Hospitalist; ATTEND Hospitalist
DX: I21.4 Non-ST elevation (NSTEMI) myocardial infarction (principal); I13.0 Hypertensive heart and chronic kidney disease with heart failure and stage 1 through stage 4 chronic kidney disease, or unspecified chronic kidney disease; I50.32 Chronic diastolic (congestive) heart failure; I25.118 Atherosclerotic heart disease of native coronary artery with other forms of angina pectoris; E78.5 Hyperlipidemia, unspecified; I25.2 Old myocardial infarction; E83.42 Hypomagnesemia; E87.5 Hyperkalemia; E11.22 Type 2 diabetes mellitus with diabetic chronic kidney disease; E86.1 Hypovolemia; H91.90 Unspecified hearing loss, unspecified ear; I08.1 Rheumatic disorders of both mitral and tricuspid valves; I27.20 Pulmonary hypertension, unspecified; I70.0 Atherosclerosis of aorta; J44.9 Chronic obstructive pulmonary disease, unspecified; N18.9 Chronic kidney disease, unspecified; Z79.02 Long term (current) use of antithrombotics/antiplatelets; Z79.4 Long term (current) use of insulin; Z79.82 Long term (current) use of aspirin; Z79.84 Long term (current) use of oral hypoglycemic drugs; Z79.899 Other long term (current) drug therapy; Z87.891 Personal history of nicotine dependence; Z95.5 Presence of coronary angioplasty implant and graft; Z93.3 Colostomy status; Z88.8 Allergy status to other drugs, medicaments and biological substances
CPT/HCPCS: 36415; 71046; 80048; 80053; 83735; 83880; 84100; 84484; 85025; 85610; 85730; 93005; 93306; 94640; 94760; 96365; 96366; 96368; 99291